=== PATIENT | female | born 1955 | race Caucasian/White ===

== ENCOUNTER 2016-12-09 10:56 | Emergency (ER) | payer MEDICARE, OTHER ==
[~2016-12-09] VITALS: Ht 165.1 cm; Wt 59.0 kg
[~2016-12-09 10:56] MED LIST: ACYCLOVIR200 MG PO; AMOXICILLIN875 MG PO; AUGMENTIN 875-1 EACH PO; CIPRO500 MG PO; CLARITIN10 MG PO; DOXYCYCLINE HYC50 MG PO; DUONEB INH; FLOVENT HFA12 G1 INH; GABAPENTIN300 MG PO; HYDROCHLOROTHIA25 MG PO; HYDROCODON-ACE1 EA11 PO; HYDROCODON-ACE1 EA12 PO; HYDROCODON-ACE1 EAC8 PO; HYDROXYZINE PAM25 MG PO; LIDOCAINE30 G TOP; LOPERAMIDE2 MG PO; LUNESTA3 MG PO; MORPHINE SULFAT30 M5 PO; NORCO 5-325 TA1 EACH PO; NYSTATIN100000 UN1 PO; OMEPRAZOLE20 MG PO; OXYCODONE HCL15 MG PO; PRAVACHOL20 MG PO; PREDNISONE20 MG PO; PRILOSEC20 MG PO; PRINIVIL20 MG PO; PROAIR HFA8.5 GM INH; PROCARDIA XL30 MG PO; PROZAC20 MG PO; PSEUDOEPHEDRINE60 MG PO; PSEUDOGEST PO; ROBAXIN500 MG PO; SOMA350 MG PO; TRAMADOL HCL50 MG PO; TYLENOL EXTRA500 MG PO; ULTRAM50 MG PO; VENTOLIN HFA18 GM INH; XANAX0.5 MG PO; XANAX1 MG PO; ZANAFLEX4 MG PO; ZOLOFT100 MG PO
[2016-12-09] MEDS ORDERED: PROZAC40 MG PO (11:13)
[2016-12-09] MEDS ORDERED: METHYLPREDNISOLO4 M1 PO (11:23)
[2016-12-09] MEDS ORDERED: AUGMENTIN 875-1 EACH PO (11:24)
== END 2016-12-09 11:48 | disposition home or self-care (01) ==
LOC: ED 10:56
DX: J44.1 Chronic obstructive pulmonary disease with (acute) exacerbation (principal); F17.200 Nicotine dependence, unspecified, uncomplicated; Z90.710 Acquired absence of both cervix and uterus; Z88.8 Allergy status to other drugs, medicaments and biological substances; Z88.6 Allergy status to analgesic agent; Z79.52 Long term (current) use of systemic steroids; Z79.899 Other long term (current) drug therapy
CPT/HCPCS: 94640; 99283

== ENCOUNTER 2016-12-22 15:22 | Emergency (ER) | payer MEDICARE, OTHER ==
[~2016-12-22] VITALS: Ht 165.1 cm; Wt 61.7 kg
[~2016-12-22 15:22] MED LIST changes: +METHYLPREDNISOLO4 M1 PO; +PROZAC40 MG PO
[2016-12-22] MEDS ORDERED: AUGMENTIN 875-1 EACH PO (16:37)
[2016-12-22] MEDS ORDERED: PREDNISONE20 MG PO (16:37)
== END 2016-12-22 16:41 | disposition home or self-care (01) ==
LOC: ED 15:22
DX: J02.9 Acute pharyngitis, unspecified (principal); F17.200 Nicotine dependence, unspecified, uncomplicated; Z90.710 Acquired absence of both cervix and uterus; Z90.89 Acquired absence of other organs; Z88.8 Allergy status to other drugs, medicaments and biological substances; Z88.6 Allergy status to analgesic agent; Z79.899 Other long term (current) drug therapy; Z79.52 Long term (current) use of systemic steroids
CPT/HCPCS: 99283

== ENCOUNTER 2017-02-15 10:43 | Emergency (ER) | payer MEDICARE, OTHER ==
[~2017-02-15] VITALS: Ht 165.1 cm; Wt 59.9 kg
[2017-02-15] MEDS ORDERED: LATUDA40 MG PO (10:55)
[2017-02-15] MEDS ORDERED: LEVAQUIN750 MG PO (12:16)
[2017-02-15] MEDS ORDERED: PREDNISONE20 MG PO (12:16)
--- NOTE | 2017-02-15 23:00 | EKG ---
[facility] [address] [facility] [place] [address] Signed Normal sinus rhythm Nonspecific ST abnormality Abnormal ECG When compared with ECG of 04-AUG-2016 12:15, T wave inversion no longer evident in Anterolateral leads QT has shortened Confirmed by JANET RODRIGUEZ MD ([id number]) on 02/15/2017 11:00:06 PM Electronically Signed By: JANET RODRIGUEZ MD 02/15/170 PATIENT NAME: ONEAL LLAMAS Electrocardiogram DATE OF : 51 PHYSICIAN: JANET RODRIGUEZ MD REPORT #: [id number] REPORT IS CONFIDENTIAL AND NOT TO BE RELEASED WITHOUT AUTHORIZATION
== END 2017-02-15 12:55 | disposition home or self-care (01) ==
LOC: ED 10:43
DX: J44.1 Chronic obstructive pulmonary disease with (acute) exacerbation (principal); F17.200 Nicotine dependence, unspecified, uncomplicated; Z88.8 Allergy status to other drugs, medicaments and biological substances; Z88.6 Allergy status to analgesic agent; Z79.899 Other long term (current) drug therapy
CPT/HCPCS: 71010; 80053; 83735; 84484; 85025; 93005; 93010; 94640; 96365; 96375; 99284; J1956; J2930

== ENCOUNTER 2017-03-04 19:59 | Emergency (ER) | payer MEDICARE, OTHER ==
[~2017-03-04] VITALS: Ht 165.1 cm; Wt 59.4 kg
--- OUTSIDE RECORDS SUMMARY | ~2017-03-04 | XMS | Clinical Summary ---
Demographics + + + | Address | [address] | | | [place] [address] | + + + | Home Phone [...] | Unavailable | + + + Support +------+ +---------+ + + + | Name | Relationship | Address | Phone | +------+ +---------+ + + + ECON | [address] | | [place] | [place] [address] | +------+ +---------+ + + + Care Team Providers + +------+ + | Care Province Archivist Name | Role | Phone | + +------+ + PP | Unavailable | + +------+ + Source Comments MARY is fully live on both [facility] and [facility] InPatient.[facility] Allergies Not on File Current Medications Not on file Active Problems Not [...] on file | | + + + Plan of Treatment + + + + + | Health Maintenance | Due Date | Last Done | Comments | + + + + + | INFLUENZA VACCINE | | | | | (FLU SHOT) | 7 | | | + + + + + Results Not on filefrom Last 3 Months"
--- OUTSIDE RECORDS SUMMARY | ~2017-03-04 | XMS | Clinical Summary ---
Demographics + + + | Address | [address] | | | [place] [address] | + + + | Home Phone [...] [address] | | [place] | [place] [address] | +------+ +---------+ + + + Care Team Providers + +------+ + | Care Network Systems Consultant Name | Role | Phone | + +------+ + PP | Unavailable | + +------+ + Source Comments MARY is fully live on both [facility] and [facility] InPatient.[facility] Allergies Not on File Current Medications Not [...]
[~2017-03-04 19:59] MED LIST changes: +LATUDA40 MG PO; +LEVAQUIN750 MG PO
== END 2017-03-04 21:57 | disposition left against medical advice (07) ==
LOC: ED 19:59
DX: Z53.21 Procedure and treatment not carried out due to patient leaving prior to being seen by health care provider (principal)

== ENCOUNTER 2017-05-11 06:32 | Emergency (ER) | payer MEDICARE, OTHER ==
[~2017-05-11] VITALS: Ht 165.1 cm; Wt 59.0 kg
[2017-05-11] MEDS ORDERED: PERCOCET 5-3251 EACH PO (07:18)
== END 2017-05-11 07:35 | disposition home or self-care (01) ==
LOC: ED 06:32
DX: S92.354A Nondisplaced fracture of fifth metatarsal bone, right foot, initial encounter for closed fracture (principal); J44.9 Chronic obstructive pulmonary disease, unspecified; F17.200 Nicotine dependence, unspecified, uncomplicated; Z88.8 Allergy status to other drugs, medicaments and biological substances; Z88.6 Allergy status to analgesic agent; Z79.899 Other long term (current) drug therapy; W18.11XA Fall from or off toilet without subsequent striking against object, initial encounter; Y92.008 Other place in unspecified non-institutional (private) residence as the place of occurrence of the external cause
CPT/HCPCS: 73630; 99283

== ENCOUNTER 2017-11-11 06:31 | Emergency (ER) | payer OTHER, MEDICARE ==
[~2017-11-11] VITALS: Ht 165.1 cm; Wt 59.0 kg
--- OUTSIDE RECORDS SUMMARY | ~2017-11-11 | XMS | Clinical Summary ---
Demographics + + + | Address | [address] | | | [place] [address] | + + + | Home Phone [...] + | Author | [facility] | | | and [place] | + + + | Organization | [facility] | | | and [place] [...] Team Providers + +------+ + | Care Demolitionist Name | Role | Phone | + +------+ + | Timothy Elmore | PP | | + +------+ + Allergies + [...] | + + + + + + Current Medications + + +--------+---------+------+------+-------+ | Prescription | Sig. | Disp. | Refills | Star | End | Statu | | | | | | t | Date | s | | | | | | Date | | | + + +--------+---------+------+------+-------+ | omeprazole | Take 20 mg by mouth | | | 05/ | | Activ | | (PRILOSEC) 20 mg | every morning | | | 08/07 | | e | | capsule | (before breakfast). | | | 17 | | | + + +--------+---------+------+------+-------+ | gabapentin | Take 1,200 mg by | | | 06/0 | | Activ | | (NEURONTIN) 600 MG | mouth 3 times daily. | | | 20 | | e | | tablet | | | | 17 | | | + + +--------+---------+------+------+-------+ | fluticasone | 1 spray by Nasal | | | 05/2 | | Activ | | (FLONASE) 50 | route Daily. | | | 8/20 | | e | | mcg/nasal spray | | | | 17 | | | + + +--------+---------+------+------+-------+ | loperamide | Take 4 mg by mouth 4 | | | 05/2 | | Activ | | (IMODIUM) 2 mg | times daily as | | | 3/20 | | e | | capsule | needed for Diarrhea. | | | 17 | | | + + +--------+---------+------+------+-------+ | FLOVENT HFA 220 | Inhale 1 puff into | | | 05/0 | | Activ | | MCG/ACT inhaler | the lungs 2 times | | | 5/20 | | e | | | daily. | | | 17 | | | + + +--------+---------+------+------+-------+ | acyclovir | Take 400 mg by mouth | | | 06/0 | | Activ | | (ZOVIRAX) 800 mg | 2 times daily. | | | 2/20 | | e | | tablet | | | | 17 | | | + + +--------+---------+------+------+-------+ | hydrOXYzine | Take 25 mg by mouth | | | 05/2 | | Activ | | pamoate (VISTARIL) | 4 times daily. | | | 5/20 | | e | | 25 mg capsule | | | | 17 | | | + + +--------+---------+------+------+-------+ | FLUoxetine | Take 40 mg by mouth | | | 05/0 | | Activ | | (PROZAC) 40 MG | 2 times daily. | | | 3/20 | | e | | capsule | | | | 17 | | | + + +--------+---------+------+------+-------+ | acetaminophen | Take 2 tablets by | 120 | | 06/2 | | Activ | | (TYLENOL) 325 mg | mouth every 6 hours | tablet | | 0/20 | | e | | tablet | as needed for Pain. 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 | + + + | [...] on file | | + + + Last Filed Vital Signs + + + + | Vital Sign | Reading | Time Taken | + + + + | Blood Pressure | 136/83 | 08/07/2016710 PDT | + + + [...] | 59.3 kg (130 lb 11.7 | 08/06/20161899 PDT | | | oz) | | [...] | + + + + + | Hepatitis C | | | | | Screening | 4 | | | + + + + + | Vaccine: | | | | | Dtap/Tdap/Td (1 - | 3 | | | | Tdap) | | | | + + + + + | Vaccine: | | | | | Pneumococcal 19-64 | 3 | | | | (PPSV23 only) Medium | | | | | Risk (1 of 1 - | | | | | PPSV23) | | | | + + + + + | Cervical Cancer | | | | | Screening (Pap) | 4 | | | + + + + + | BREAST CANCER | | | | | SCREENING (MAMM Q2 | 4 | | | | YEARS 50-74) | | | | + + + + + | Colorectal Cancer | | | | | Screening | 4 | | | | (Colonoscopy) | | | | + + + + + | Vaccine: Zoster (1 | | | | | of 2) | 4 | | | + + + + + | Lung Cancer | | | | | Screening | 9 | | | + + + + + | Vaccine: Influenza | | | | | (#1) | 8 | | | + + + + + Results Not on filefrom Last 3 Months Insurance + +--------+ +--------+ +---------+ | Payer | Benefi | Subscriber | Type | Phone | Address | | | t Plan | ID | | | | | | / | | | | | | | Group | | | | | + +--------+ +--------+ +---------+ | MEDICARE | MEDICA | [id number] | Medica | [phone] | | | RE | | re | [phone] | | | | PART A | | | | | | | AND B | | | | | + +--------+ +--------+ +---------+ | [place] | MEDICA | [id number] | Medica | [phone] | | | ID | | id | [phone] | | | | [place] | | | | | + +--------+ +--------+ +---------+ + +--------+ +--------+ + + | Guarantor Name | Accoun | Relation to | Date | Phone | Billing Address | | | t Type | Patient | of | | | | | | | | | | + +--------+ +--------+ + + | LITZY EVANS | Person | Self [birth year] | Home: | [address] | | | al/Fam | | [phone] | [phone] | [place] [address] | | | anastasiya | | | [phone] | | + +--------+ +--------+ + +
--- OUTSIDE RECORDS SUMMARY | ~2017-11-11 | XMS | Clinical Summary ---
Demographics + + + | Address | [address] | | | [place] [address] | + + + | Home Phone [...] | + + + + + | DEREK QUIROGA | ECON | [address] | | | | | [place], | | | | | [place] [address] | | + + + + + Care Team Providers + +------+ + | Care Corporate Law Assistant Name | Role | Phone | + +------+ + PP | Unavailable | + +------+ + Source Comments MARY is fully live on both [facility] and [facility] InPatient.[facility] Allergies Not on File Current Medications Not [...] | | | | (FLU SHOT) | 8 | | | + + + + + Results Not on filefrom Last 3 Months"
[~2017-11-11 06:31] MED LIST changes: +PERCOCET 5-3251 EACH PO
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
[2017-11-11] MEDS ORDERED: DEPAKENE250 MG (06:47)
== END 2017-11-11 07:08 | disposition home or self-care (01) ==
LOC: ED 06:31
DX: M54.6 Pain in thoracic spine (principal); G89.29 Other chronic pain; Z87.891 Personal history of nicotine dependence; Z88.8 Allergy status to other drugs, medicaments and biological substances; Z88.6 Allergy status to analgesic agent; Z79.899 Other long term (current) drug therapy
CPT/HCPCS: 99283

== ENCOUNTER 2018-03-22 02:02 | Observation (INO) | payer MEDICARE, OTHER ==
[~2018-03-22] VITALS: Ht 165.1 cm; Wt 59.2 kg
[~2018-03-22 02:02] MED LIST changes: +DEPAKENE250 MG; +ZOFRAN ODT4 MG PO; +ZYPREXA10 MG PO
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
[2018-03-22] MEDS ORDERED: PERCOCET 10-321 EACH PO (07:16)
[2018-03-22] MEDS ORDERED: WELLBUTRIN XL300 MG PO (07:18)
[2018-03-22] MEDS ORDERED: ZOLOFT100 MG PO (07:18)
--- NOTE | 2018-03-22 08:08 | NUR ---
in room with ptSylvia
--- NOTE | 2018-03-22 08:39 | NUR ---
RT CALLED FOR BREATHING TREATMENT.
--- NOTE | 2018-03-22 08:46 | NUR ---
PT UP TO BATHROOM. STANDBY ASSIST. BACK TO BED. PT ASKING FOR BREAKFAST THIS MORNING. DISCUSSED STAYING ON CLEAR LIQUIDS FOR NOW DUE TO THROAT SWELLING. PT AGREEABLE.
--- NOTE | 2018-03-22 09:33 | NUR ---
PT STATED, "IM FEELING RESTLESS IN BED." PT UP TO CHAIR. MORNING MEDICATION GIVEN. PT REQUESTING PAIN MEDICATION AT THIS TIME FOR LOWER BACK PAIN. GAVE PERCOCET 10/325 PO 1 TAB FOR PAIN 06/27. FRESH ICE TEA ALSO GIVEN AT THIS TIME.
--- NOTE | 2018-03-22 12:40 | NUR ---
PT UP AMBULATING IN HALLWAY. TOLERATING ACTIVITY WELL.
--- NOTE | 2018-03-22 12:55 | NUR ---
PT BACK IN ROOM. WARM BLANKET GIVEN. PT ASKING ABOUT DISCHARGE. DISCUSSED PLAN OF CARE WITH PT. PT VERBALIZED UNDERSTANDING.
--- NOTE | 2018-03-22 14:11 | NUR ---
pt up to bathroom and back to bed. pt asking about plan of care and possible discharge home. discussed with pt the need for continued monitoring. pt verbalized understanding. call light within reach.
== END 2018-03-22 16:25 | disposition home or self-care (01) ==
LOC: ED 02:02 → CCU 02:03 → ED 02:03 → CCU 02:03
PROVIDERS: ADMIT Student in an Organized Health Care Education/Training Program
DX: T78.3XXA Angioneurotic edema, initial encounter (principal); M79.7 Fibromyalgia; M06.9 Rheumatoid arthritis, unspecified; J43.9 Emphysema, unspecified; F17.210 Nicotine dependence, cigarettes, uncomplicated; I10 Essential (primary) hypertension; F39 Unspecified mood [affective] disorder; G62.9 Polyneuropathy, unspecified; Z88.8 Allergy status to other drugs, medicaments and biological substances; Z79.891 Long term (current) use of opiate analgesic; Z79.51 Long term (current) use of inhaled steroids; Z79.899 Other long term (current) drug therapy
CPT/HCPCS: 94640; 94667; 96372; 96374; 96375; 96376; 99284-25; 99406; G0378; J1200; J2930; J7030

== ENCOUNTER 2018-04-21 16:33 | Emergency (ER) | payer MEDICARE, OTHER ==
[~2018-04-21] VITALS: Ht 165.1 cm; Wt 58.1 kg
[~2018-04-21 16:33] MED LIST changes: +PERCOCET 10-321 EACH PO; +WELLBUTRIN XL300 MG PO
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
[2018-04-21] MEDS ORDERED: HYDROCODON-ACE1 EAC8 PO (17:45)
[2018-04-21] MEDS ORDERED: DOXYCYCLINE HY100 MG PO (18:37)
[2018-04-21] MEDS ORDERED: DELTASONE20 MG PO (18:37)
[2018-04-21] MEDS ORDERED: ALBUTEROL2.5 MG/3 M INH (18:37)
[2018-04-21] MEDS ORDERED: TAMIFLU75 MG PO (18:37)
== END 2018-04-21 19:10 | disposition home or self-care (01) ==
LOC: ED 16:33
DX: J44.0 Chronic obstructive pulmonary disease with (acute) lower respiratory infection (principal); J20.9 Acute bronchitis, unspecified; J44.1 Chronic obstructive pulmonary disease with (acute) exacerbation; F17.200 Nicotine dependence, unspecified, uncomplicated; Z88.8 Allergy status to other drugs, medicaments and biological substances; Z88.6 Allergy status to analgesic agent; Z79.899 Other long term (current) drug therapy
CPT/HCPCS: 71045; 87502; 94640; 99283-25; 99406; J7512

== ENCOUNTER 2018-08-03 13:06 | Emergency (ER) | payer MEDICARE, OTHER ==
[~2018-08-03] VITALS: Ht 165.1 cm; Wt 58.1 kg
[~2018-08-03 13:06] MED LIST changes: +ALBUTEROL2.5 MG/3 M INH; +DELTASONE20 MG PO; +DOXYCYCLINE HY100 MG PO; +TAMIFLU75 MG PO
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
[2018-08-03] MEDS ORDERED: IPRAT-ALBUT 0.5-3 ML INH (13:34)
[2018-08-03] MEDS ORDERED: PSEUDOEPHEDRIN120 MG PO (13:37)
== END 2018-08-03 13:41 | disposition home or self-care (01) ==
LOC: ED 13:06
DX: R21 Rash and other nonspecific skin eruption (principal)

== ENCOUNTER 2018-12-23 14:06 | Inpatient (IN) | payer MEDICARE, OTHER ==
[~2018-12-23] VITALS: Ht 165.1 cm; Wt 58.1 kg
--- OUTSIDE RECORDS SUMMARY | ~2018-12-23 | XMS | Encounter Summary ---
Demographics + + + | Address | [address] | | | [place] [address] | + + + | Home Phone | | + + + | Preferred Language | Unknown | + + + | Marital Status | Single | + + + | Orthodoxy Affiliation | Unknown | + + + | Race | White | + + + | Ethnic Group | Not or | + + + Author + + + | Author | [facility] | + + + | Organization | [facility] | + + + | Address | Unknown | + + + | Phone | Unavailable | + + + Support + + + + + | Name | Relationship | Address | Phone | + + + + + | Zaida Putnam | ECON | [address] | | | | | [place], | | | | | [place] [address] | | + + + + + Care Team Providers + +------+ + | Care Health And Physical Education Teacher Name | Role | Phone | + +------+ + PCP | Unavailable | + +------+ + Encounter Details +--------+ + + + + | Date | Type | Department | Care Team | Description | +--------+ + + + + | 10/09/ | Office | General Internal | Note, Outpatient | Progress Note | | 1994 | Visit-Trans | Medicine [address] | Clinic | | | | [place] | [address] | | | | | | Mailcode: [id number] | | | | | | Outpatient Clinic | | | | | | [address] | | | | | | [place], [place] | | | | | | [address] | | | | | | [phone] | | | +--------+ + + + [...] + + documented as of this encounter Progress Notes Interface, Duplicate Maker In - 06/01/2006 3:00 AM PDT CLINIC DATE: 10/09/94 PAIN MANAGEMENT CLINIC - PROGRESS NOTE INTERVAL HISTORY: Ms. Evans presents to the Pain Management Clinic today for continued evaluation and treatment of her chronic lower back pain. She has been successfully weaned off opioids and is currently weaning herself off a cocktail that contains only Clonidine and Vistaril. Currently she is taking one teaspoonful of this cocktail b.i.d. which works out to Vistaril 0.75 mg and Clonidine 7 mcg b.i.d. She notes her low back pain has remained in the 0-1/10 range, but she notes some mild right calf pain that seems to be bothering her recently. The patient continues to participate actively in her social programs including attending mandaeism and bible-study sessions. CURRENT MEDICATIONS: Current medications include the pain cocktail as described above. ALLERGIES: No known drug allergies. PHYSICAL EXAMINATION: Physical examination today shows a blood pressure of 118/68, a heart rate of 78, and a respiratory rate of 18. General: In general, the patient is a well -developed, well-nourished, mildly obese white female with full expressive facies in no apparent distress. ASSESSMENT AND PLAN: Chronic low back pain. 1. Chronic pain therapy. Ms. Evans has successfully weaned herself off her pain cocktail containing only Clonidine and Vistaril and she will stop taking this medication completely now. 2. Physical therapy. 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 3. Increasing social function. This seems to be quite stable and she now is able to understand the effect that anger has on her pain. Ms. Evans will no longer be able to be seen the Pain Management Clinic at [facility] because of a change in insurance coverage. She will be cared for at [facility]. She has requested that her Pain Management Clinic progress notes as well as her Orthopedic progress notes from [facility] be sent to that institution. Ms. Evans has done well after arriving receiving a relatively high dose of oral opioids, Vicodin approximately eight per day. She has been titrated off opioids, and her pain level has decreased from a score of 7-8/10 to currently 0-1/10. I believe that her prognosis is quite good in terms of her chronic pain. John Mulligan M.D. Engineering Technical Specialist, Anesthesiology Director, Pain Management Services PK:bony cc: CAROLINE YOON MD METALWORKING INSTRUCTOR [facility]THOP[facility] documented in this encounter Plan of Treatment Not on filedocumented as of this encounter Visit Diagnoses Not on filedocumented in this encounter"
--- OUTSIDE RECORDS SUMMARY | ~2018-12-23 | XMS | Encounter Summary ---
Demographics + + + | Address | [address] | | | [place] [address] | + + + | Home Phone | | + + + | Preferred Language | Unknown | + + + | Marital Status | Single | + + + | Shinto Affiliation | Unknown | + + + | Race | White | + + + | Ethnic Group | Not or | + + + Author + + + | Author | [facility] | + + + | Organization | [facility] | + + + | Address | Unknown | + + + | Phone | Unavailable | + + + Support + + + + + | Name | Relationship | Address | Phone | + + + + + | Zaida Putnam | ECON | [address] | | | | | [place], | | | | | [place] [address] | | + + + + + Care Team Providers + +------+ + | Care Study Director Name | Role | Phone | + +------+ + PCP | Unavailable | + +------+ + Encounter Details +--------+ + + + + | Date | Type | Department | Care Team | Description | +--------+ + + + + | 04/18/ | Office | [facility] | Note, [...] as of this encounter Progress Notes Interface, Horn Player In - 02/12/2006 3:04 AM PSTCLINIC DATE: 04/18/1998 INTERNAL MEDICINE CLINIC SUBJECTIVE: Ms. Evans presents today for follow up of a wart on the tip of the first finger on right. She has had at least 3 cryo treatments previously and reports that the wart has been responding. She has also been applying some Podophyllin at home. As for her chronic pain, she reports that it has completely resolved on MS-Contin 15 milligrams po t.i.d. She is very happy with the medication and reports no constipation or side effects thereof. She feels that her function has improved with the medication. PHYSICAL EXAMINATION: BP 110/70. Pulse 64. Weight 161. Affect is happy. Speech is more controlled and less tangential than usual. SKIN: Reveals a small eschar on the tip of the first finger on the right. There is evidence for a wart there. FEET: Reveals numerous calluses over the first metatarsal and heel bilaterally as well as one between the fourth and fifth toes bilaterally. ASSESSMENT AND PLAN: 1. Wart, status post treatment with liquid nitrogen x 1. Patient is to continue applying Podophyllin and paring the wart at home. 2. Callused feet, likely related to ill fitting foot wear. Recommended calluses q h.s. with plastic covers prior to going to bed. In addition, she is to pumice in the morning. Ms. Evans was educated regarding the importance of properly fitting footwear. 3. Chronic pain. Currently in remission on MS-Contin. Ms. Evans was provided with refills of MS-Contin for the next three months. She is to follow up with me then. The assessment and plan was reviewed with Dr. Wallace Szymanski. Hui Milton M.D. Wallace Szymanski M.D. TORI:matthew d ocumented in this encounter Plan of Treatment Not on filedocumented as of this encounter Visit Diagnoses Not on filedocumented in this encounter"
--- OUTSIDE RECORDS SUMMARY | ~2018-12-23 | XMS | Encounter Summary ---
Demographics + + + | Address | [address] | | | [place] [address] | + + + | Home Phone | | + + + | Preferred Language | Unknown | + + + | Marital Status | Single | + + + | Taoist Affiliation | Unknown | + + + | Race | White | + + + | Ethnic Group | Not or | + + + Author + + + | Author | [facility] | + + + | Organization | [facility] | + + + | Address | Unknown | + + + | Phone | Unavailable | + + + Support + + + + + | Name | Relationship | Address | Phone | + + + + + | Zaida Putnam | ECON | [address] | | | | | [place], | | | | | [place] [address] | | + + + + + Care Team Providers + +------+ + | Care Sanitizer Name | Role | Phone | + [...] as of this encounter Progress Notes Interface, Wet Room Supervisor In - 02/12/2006 3:04 AM PSTCLINIC DATE: [...]
--- OUTSIDE RECORDS SUMMARY | ~2018-12-23 | XMS | Clinical Summary ---
Demographics + + + | Address | [address] | | | [place] [address] | + + + | Home Phone | | + + + | Preferred Language | Unknown | + + + | Marital Status | Single | + + + | Samaritan Affiliation | Unknown | + + + | Race | White | + + + | Ethnic Group | Not or | + + + Author + + + | Organization | Unknown | + + + | Address | Unknown | + + + | Phone | Unavailable | + + + Support + + + + + | Name | Relationship | Address | Phone | + + + + + | Zaida Putnam | ECON | [address] | | | | | [place], | | | | | [place] [address] | | + + + + + Care Team Providers + +------+ + | Care Frame Table Operator Name | Role | Phone | + +------+ + PCP | Unavailable | + +------+ + Source Comments MARY is fully live on both [facility] and [facility] Allergies Not on File Medications Not on file Active Problems Not on file Social History + +-------+ +--------+------+ | Tobacco [...] recent travel history available. | + + Last Filed Vital Signs Not on file Plan of Treatment + + + + + | Health Maintenance | Due Date | Last Done | Comments | + + + + + | Pneumococcal | | | | | vaccination (1 of 2 | 9 | | | | - PCV13) | | | | + + + + + | Influenza (Flu) | | | | | vaccination (#1) | 9 | | | + + + + + Results Not on filefrom Last 3 Months"
--- OUTSIDE RECORDS SUMMARY | ~2018-12-23 | XMS | Encounter Summary ---
Demographics + + + | Address | [address] | | | [place] [address] | + + + | Home Phone | | + + + | Preferred Language | Unknown | + + + | Marital Status | Single | + + + | Zoroastrian Affiliation | Unknown | + + + | Race | White | + + + | Ethnic Group | Not or | + + + Author + + + | Author | [facility] | + + + | Organization | [facility] | + + + | Address | Unknown | + + + | Phone | Unavailable | + + + Support + + + + + | Name | Relationship | Address | Phone | + + + + + | Zaida Putnam | ECON | [address] | | | | | [place], | | | | | [place] [address] | | + + + + + Care Team Providers + +------+ + | Care Surfacing Technician Name | Role | Phone | + +------+ + PCP | Unavailable | + +------+ + Encounter Details +--------+ + + + + | Date | Type | Department | Care Team | Description | +--------+ + + + + | 08/14/ | Office | General Internal | Note, Outpatient | Progress Note | | 1994 | Visit-Trans | Medicine [address] | Clinic | | | | [place] | [address] | | | | | | Mailcode: [address]475 | | | | | | Outpatient Clinic | | | | | | [address] | | | | | | [place], [place] | | | | | | [address] | | | | | | [phone] | | | +--------+ + + + [...] as of this encounter Progress Notes Interface, Mechanical Service Representative In - 06/05/2006 1:00 AM PDT CLINIC [...] Ms. Evans remains quite active with her yazdanism organization oand is noticing that she has [...] outlets of her anger. John Mulligan M.D. Bottom Filler, Anesthesiology Director, Pain Management Services HUI/fernando documented in this encounter Plan of Treatment Not on filedocumented as of this encounter Visit Diagnoses Not on filedocumented in this encounter"
--- OUTSIDE RECORDS SUMMARY | ~2018-12-23 | XMS | Encounter Summary ---
Demographics + + + | Address | [address] | | | [place] [address] | + + + | Home Phone | | + + + | Preferred Language | Unknown | + + + | Marital Status | Single | + + + | Christianity Affiliation | Unknown | + + + | Race | White | + + + | Ethnic Group | Not or | + + + Author + + + | Author | [facility] | + + + | Organization | [facility] | + + + | Address | Unknown | + + + | Phone | Unavailable | + + + Support + + + + + | Name | Relationship | Address | Phone | + + + + + | Zaida Putnam | ECON | [address] | | | | | [place], | | | | | [place] [address] | | + + + + + Care Team Providers + +------+ + | Care Gasoline Locomotive Crane Operator Name | Role | Phone | + +------+ + PCP | Unavailable | + +------+ + Encounter Details +--------+ + + + + | Date | Type | Department | Care Team | Description | +--------+ + + + + | 06/20/ | Office | [facility] | Note, [...] as of this encounter Progress Notes Interface, Boarding House Manager In - 02/07/2006 1:09 AM PSTCLINIC DATE: 06/20/1998 INTERNAL MEDICINE CLINIC SUBJECTIVE: Ms. Evans comes to clinic today regarding her medication issues. I recently and abruptly withdrew a prescription for MS-Contin after finding out that she was obtaining that medication illicitly off the street and stealing medication from other family members. She presents today complaining of withdrawal symptoms including nausea, sweats, tearing and depressing. Her last dose of MS-Contin was on Thursday, June 18, 1998. She admits to taking more of the medication than we had agreed on originally; she has been taking MS-Contin 15-mg p.o. four to five times per day. 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 Moreover, she says this is an important component to her "salvation". PHYSICAL EXAMINATION: Her weight is 161 pounds, blood pressure 122/92 and pulse 100. This is an anxious and tearful white female who is in no apparent distress. The skin manifests some signs of erythroderma on the face and hands. The hands are slightly moist. The eyes are tearful. The pupils measure 2.5 mm and are reactive. Cardiovascular examination reveals regular rate and rhythm, S1 and S2 that are slightly tachycardic but no murmurs, rubs or gallops. The lungs are clear to auscultation and percussion. The abdomen is nondistended and nontender with normoactive bowel sounds. ASSESSMENT AND PLAN: 1. Drug-seeking behavior with evidence of medication misuse and mis-appropriation. From this point forward Ms. Evans is not to receive narcotics from myself or from any other provider at [facility]. She has violated our contract as set forth in a previous note. She understands this. Moreover, she understands that her chart will be flagged in the [facility] system so that she cannot receive narcotics. This situation brings into question whether or not her diagnosis of fibromyalgia is, indeed legitimate. According to the patient's mother, who accompanies her today, the patient has been feigning symptoms so that she can obtain narcotics; she has gone so far as to obtain a book on fibromyalgia so that she can represent the syndrome correctly. At this point Ms. Evans is in Stage 1 of withdrawal without any evidence of hemodynamic instability. I suspect her withdrawal will last anywhere from seven to fourteen days. I have agreed to provide her with a tapering dose of clonidine (starting at 0.2-mg (sic) p.o. five times per day for five days and then tapering down to 2.1-mg (sic) p.o. five times per day for three days, then 0.1-mg p.o. t.i.d. for three days and then 0.1-mg p.o. b.i.d. for three days) and Phenergan 25-mg one to two tablets p.o. q.i.d. for nausea. At this point in the visit I had Dr. Anabelle Garcia speak to Ms. Evans regarding her options for recovery. Ms. Evans is to return to clinic in three weeks for follow-up. Hui Milton M.D. Wallace Szymanski M.D. Anabelle Garcia M.D. TORI/fernando documented in this encounter Plan of Treatment Not on filedocumented as of this encounter Visit Diagnoses Not on filedocumented in this encounter
--- OUTSIDE RECORDS SUMMARY | ~2018-12-23 | XMS | Encounter Summary ---
Demographics + + + | Address | [address] | | | [place] [address] | + + + | Home Phone | | + + + | Preferred Language | Unknown | + + + | Marital Status | Single | + + + | Confucianist Affiliation | Unknown | + + + | Race | White | + + + | Ethnic Group | Not or | + + + Author + + + | Author | [facility] | + + + | Organization | [facility] | + + + | Address | Unknown | + + + | Phone | Unavailable | + + + Support + + + + + | Name | Relationship | Address | Phone | + + + + + | Zaida Putnam | ECON | [address] | | | | | [place], | | | | | [place] [address] | | + + + + + Care Team Providers + +------+ + | Care Assembler Arranger Name | Role | Phone | + +------+ + PCP | Unavailable | + +------+ + Encounter Details +--------+ + + + + | Date | Type | Department | Care Team | Description | +--------+ + + + + | 09/04/ | Office | General Internal | Note, Outpatient | Progress Note | | 1994 | Visit-Trans | Medicine [address] | Clinic | | | | [place] | [address] | | | | | | Mailcode: [address] | | | | | | Outpatient Clinic | | | | | | [address] | | | | | | [place], [place] | | | | | | [address] | | | | | | [phone] | | | +--------+ + + + [...] as of this encounter Progress Notes Interface, Manager Report In - 06/03/2006 2:00 AM PDT CLINIC [...] Ms. Evans has not been attending her confucianism on Sundays but continues to go to local confucianism meetings. She denies sedation, and nausea and [...] increased social function and participation in her taoism group. John Mulligan M.D. Internet Webmaster, Anesthesiology Director, Pain Management Services PK:bony cc: CAROLINE YOON MD [facility] documented in this encounter Plan of Treatment Not on filedocumented as of this encounter Visit Diagnoses Not on filedocumented in this encounter
--- OUTSIDE RECORDS SUMMARY | ~2018-12-23 | XMS | Encounter Summary ---
Demographics + + + | Address | [address] | | | [place] [address] | + + + | Home Phone [...] Author | [facility] | + + + | Organization | [facility] | + + + | Address | Unknown | + + + | Phone | Unavailable | + + + Support + + + + + | Name | Relationship | Address | Phone | + + + + + | Zaida Putnam | ECON | [address] | | | | | [place], | | | | | [place] [address] | | + + + + + Care Team Providers + +------+ + | Care Top Collar Maker Name | Role | Phone | + [...] [id number] | | | | | | [place], [place] | | | | | | [address] | | | | | | [phone] | | | +--------+ + + + [...] OF | [address] | [place] [address] | | | PATHOLOGY | YOKASTA BUTCHER | | | + + + + + documented in this encounter Visit Diagnoses Not on filedocumented in this encounter"
--- OUTSIDE RECORDS SUMMARY | ~2018-12-23 | XMS | Encounter Summary ---
Demographics + + + | Address | [address] | | | [place] [address] | + + + | Home Phone [...] [place], | | | | | [place] [address] | | + + + + + Care Team Providers + +------+ + | Care Patent Drafter Name | Role | Phone | + +------+ + PCP | Unavailable | + +------+ + Encounter Details +--------+ + + + + | Date | Type | Department | Care Team | Description | +--------+ + + + + | 07/24/ | Office | General Internal | Note, Outpatient | Progress Note | | 1994 | Visit-Trans | Medicine [address] | Clinic | | | | [place] | [address] | | | | | | Mailcode: [id number] | | | | | | Outpatient Clinic | | | | | | [address] | | | | | | [place], [place] | | | | | | [address] | | | | | | [phone] | | | +--------+ + + + [...] as of this encounter Progress Notes Interface, College President In - 06/05/2006 1:00 AM PDT CLINIC DATE: 07/24/94 PAIN MANAGEMENT CLINIC - PROGRESS NOTE INTERVAL HISTORY: Mrs. Evans has been doing well with her chronic lower back pain. She presents with a completed elegant pain diary that includes details of her recent change of address. Her pain scores have been on the order of 1 to 2/10 with occasional flares to as high as 4/10 and her functioning has remained quite high including continued attendance of pentecostalism and working on nzethv-ojg-iacvh activities. She denies changes in bladder or bowel function or sedation from the medication that she is taking. She wishes to continue the pain cocktail as it is currently administered. PHYSICAL EXAMINATION: Physical examination is deferred. ASSESSMENT AND PLAN: 1. Chronic low back pain. 1.1 Chronic pain therapy. Will continue to decrease opiate therapy. Her next prescription contains no methadone but contains clonidine 50 mcg twice a day. I have also recommended that she reduce the volume of pain cocktail that she takes on a daily basis to two teaspoonsful twice a day, and she will attempt to do this over the near term. 1.2 Physical Therapy. I will continue to increase her physical therapy. 1.3 Increased social function. This seems quite stable. 2. Bladder dysfunction, resolved. John Mulligan M.D. Concrete Pointer, Anesthesiology Director, Pain Management Services PK:bony documented in this encounter Plan of Treatment Not on filedocumented as of this encounter Visit Diagnoses Not on filedocumented in this encounter"
--- OUTSIDE RECORDS SUMMARY | ~2018-12-23 | XMS | Encounter Summary ---
Demographics + + + | Address | [address] | | | [place] [address] | + + + | Home Phone | | + + + | Preferred Language | Unknown | + + + | Marital Status | Single | + + + | Episcopalian Affiliation | Unknown | + + + [...] [place], | | | | | [place] [address] | | + + + + + Care Team Providers + +------+ + | Care Newscast Producer Name | Role | Phone | [...] [id number] | | | | | | [place], [place] | | | | | | [address] | | | | | | [phone] | | | +--------+ + + + [...] OF | [address] | [place] [address] | | | PATHOLOGY | YOKASTA BUTCHER | | | + + + + + documented in this encounter Visit Diagnoses Not on filedocumented in this encounter"
--- OUTSIDE RECORDS SUMMARY | ~2018-12-23 | XMS | Encounter Summary ---
Demographics + + + | Address | [address] | | | [place] [address] | + + + | Home Phone | | + + + | Preferred Language | Unknown | + + + | Marital Status | Single | + + + | Jew Affiliation | Unknown | + + + | Race | White | + + + | Ethnic Group | Not or | + + + Author + + + | Author | [facility] | + + + | Organization | [facility] | + + + | Address | Unknown | + + + | Phone | Unavailable | + + + Support + + + + + | Name | Relationship | Address | Phone | + + + + + | Zaida Putnam | ECON | [address] | | | | | [place], | | | | | [place] [address] | | + + + + + Care Team Providers + +------+ + | Care Script Editor Name | Role | Phone | + [...] [address] | | | | | | [place] | | | | | | [address] | | | +--------+ + + + [...] as of this encounter Progress Notes Interface, Proof Technician In - 06/14/2006 5:08 AM PDT [address] [address] [facility] January 08, 1994 DARYL ELLIS PH D HOME SUPPORT WORKER MEDICAL PSYCHOLOGY [address] [address] RE:Litzy Evans MR:[id number] Ellis: Thank [...] any further information. Sincerely, Faisal Grijalva M.D. Manager College, Neurology PIYUSH:sailaja January 09, 1994 documented in this encounter Plan of Treatment Not on filedocumented as of this encounter Visit Diagnoses Not on filedocumented in this encounter"
--- OUTSIDE RECORDS SUMMARY | ~2018-12-23 | XMS | Encounter Summary ---
Demographics + + + | Address | [address] | | | [place] [address] | + + + | Home Phone [...] [place], | | | | | [place] [address] | | + + + + + Care Team Providers + +------+ + | Care Transfer Iron Operator Name | Role | Phone | + +------+ + PCP | Unavailable | + +------+ + Encounter Details +--------+ + + + + | Date | Type | Department | Care Team | Description | +--------+ + + + + | 08/14/ | Office | General Internal | Note, Outpatient | Progress Note | | 1994 | Visit-Trans | Medicine [address] | Clinic | | | | [place] | [address] | | | | | | Mailcode: L475 | | | | | | Outpatient Clinic | | | | | | [address] | | | | | | [place], [place] | | | | | | [address] | | | | | | [phone] | | | +--------+ + + + [...] as of this encounter Progress Notes Interface, Textile Supervisor In - 06/05/2006 1:00 AM PDT CLINIC [...] Ms. 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 John Mulligan M.D. Instructional Services Specialist, Anesthesiology Director, Pain Management Services HUI/fernando documented in this encounter Plan of Treatment Not on filedocumented as of this encounter Visit Diagnoses Not on filedocumented in this encounter"
--- OUTSIDE RECORDS SUMMARY | ~2018-12-23 | XMS | Encounter Summary ---
Demographics + + + | Address | [address] | | | [place] [address] | + + + | Home Phone | | + + + | Preferred Language | Unknown | + + + | Marital Status | Single | + + + | Mosque Affiliation | Unknown | + + + | Race | White | + + + | Ethnic Group | Not or | + + + Author + + + | Author | [facility] | + + + | Organization | [facility] | + + + | Address | Unknown | + + + | Phone | Unavailable | + + + Support + + + + + | Name | Relationship | Address | Phone | + + + + + | Zaida Putnam | ECON | [address] | | | | | [place], | | | | | [place] [address] | | + + + + + Care Team Providers + +------+ + | Care Commercial Airplane Pilot Name | Role | Phone | + +------+ + PCP | Unavailable | + +------+ + Encounter Details +--------+ + + + + | Date | Type | Department | Care Team | Description | +--------+ + + + + | 12/25/ | Office | UNKNOWN DEPARTMENT | Note, Outpatient | Progress Note | | 1993 | Visit-Trans | [address] | Clinic | | | | [place] | [address] | | | | | | [place], [place] | | | | | | [address] | | | +--------+ + + + [...] as of this encounter Progress Notes Interface, Commercial Field Inspector In - 06/14/2006 5:08 AM PDT CLINIC [...] drink alcohol. 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 She is , currently living with a boyfriend/roommate in [place]. She is subsisting on Welfare, she has [...] management of somatization disorder. Faisal Grijalva M.D. Shape Hand, Neurology PIYUSH/ifrah cc: LEILANI ACOSTA MD [address] [place] [id number] documented in this encounter Plan of Treatment Not on filedocumented as of this encounter Visit Diagnoses Not on filedocumented in this encounter
--- OUTSIDE RECORDS SUMMARY | ~2018-12-23 | XMS | Encounter Summary ---
Demographics + + + | Address | [address] | | | [place] [address] | + + + | Home Phone [...] [place], | | | | | [place] [address] | | + + + + + Care Team Providers + +------+ + | Care Highway Landscape Architect Name | Role | Phone | + +------+ + PCP | Unavailable | + +------+ + Encounter Details +--------+ + + + + | Date | Type | Department | Care Team | Description | +--------+ + + + + | 10/09/ | Office | General Internal | Note, Outpatient | Progress Note | | 1994 | Visit-Trans | Medicine [address] | Clinic | | | | [place] | [address] | | | | | | Mailcode: [address]475 | | | | | | Outpatient Clinic | | | | | | [address] | | | | | | [place], [place] | | | | | | [address] | | | | | | [phone] | | | +--------+ + + + [...] as of this encounter Progress Notes Interface, Hot Mill Operator In - 06/01/2006 3:00 AM PDT CLINIC [...] actively in her social programs including attending anglican and bible-study sessions. CURRENT MEDICATIONS: Current medications [...] a very low level with her boyfriend's [employer] business. 3. Increasing social function. This seems to be quite stable and she now is able to understand the effect that anger has on her pain. Ms. Evans will no longer be able to be seen the Pain Management Clinic at [facility] because of a change in insurance coverage. She will be cared for at [facility]. She has requested that her Pain Management Clinic progress notes as well as her Orthopedic progress notes from [facility] be sent to that institution. Ms. Evans has done well after arriving receiving a relatively high dose of oral opioids, Vicodin approximately eight per day. She has been titrated off opioids, and her pain level has decreased from a score of 7-8/10 to currently 0-1/10. I believe that her prognosis is quite good in terms of her chronic pain. John Mulligan M.D. Rim Roller Operator, Anesthesiology Director, Pain Management Services PK:bony cc: CAROLINE YOON MD MANAGEMENT ASSOCIATE ORTHOPEDICS [facility] documented in this encounter Plan of Treatment Not on filedocumented as of this encounter Visit Diagnoses Not on filedocumented in this encounter"
--- OUTSIDE RECORDS SUMMARY | ~2018-12-23 | XMS | Encounter Summary ---
Demographics + + + | Address | [address] | | | [place] [address] | + + + | Home Phone | | + + + | Preferred Language | Unknown | + + + | Marital Status | Single | + + + | Lutheran Affiliation | Unknown | + + + | Race | White | + + + | Ethnic Group | Not or | + + + Author + + + | Author | [facility] | + + + | Organization | [facility] | + + + | Address | Unknown | + + + | Phone | Unavailable | + + + Support + + + + + | Name | Relationship | Address | Phone | + + + + + | Zaida Putnam | ECON | [address] | | | | | [place], | | | | | [place] [address] | | + + + + + Care Team Providers + +------+ + | Care Aoc Operations Intelligence Officer Name | Role | Phone | + [...] as of this encounter Progress Notes Interface, Deputy Clerk Of Court In - 02/07/2006 1:09 AM PSTCLINIC DATE: [...] or throat itching. She has been taking vzss-ttx-oymfjwu pseudoephedrine, but has not noted much relief. [...] Ms. Evans is planning to move to [place]. We will forward her records as soon as she finds a new provider. The patient's interview, physical examination, and treatment plan were reviewed with Dr. Wallace Szymanski. Hui Mitlon M.D.Resident, Internal Medicine Wallace Szymanski M.D. Danny Tdocumented in this encounter Plan of Treatment Not on filedocumented as of this encounter Visit Diagnoses Not on filedocumented in this encounter"
--- OUTSIDE RECORDS SUMMARY | ~2018-12-23 | XMS | Encounter Summary ---
Demographics + + + | Address | [address] | | | [place] [address] | + + + | Home Phone | | + + + | Preferred Language | Unknown | + + + | Marital Status | Single | + + + | Catholic Affiliation | Unknown | + + [...] [place], | | | | | [place] [address] | | + + + + + Care Team Providers + +------+ + | Care Computer Systems Technician Name | Role | Phone | + +------+ + PCP | Unavailable | + +------+ + Encounter Details +--------+ + + + + | Date | Type | Department | Care Team | Description | +--------+ + + + + | 12/08/ | Office | [facility] INTERNAL | Note, [...] as of this encounter Progress Notes Interface, Last Remodeler Repairer In - 02/23/2006 5:02 AM PSTCLINIC DATE: 12/08/1997 INTERNAL MEDICINE CLINIC SUBJECTIVE: A patient of Dr. Milton and Dr. Szymanski comes in today for follow up for a previously scheduled appointment that had been moved without her knowledge to 12/15/97. She has no new concerns today, but is still in process of establishing primary care for treatment of her chronic low back. Her pain is actually doing a bit better. She was frustrated with the mix up in the appointment schedule and still wanted to see a doctor today. She does request a new lumbar support binder as the one she has is over a year old. She feels that it is stretched out and not as effective as it used to be. Other than this, she has no new symptoms. OBJECTIVE: Examination is deferred. ASSESSMENT: Chronic low back pain. She needs follow up with her primary care physician. She is in the process of trial of various therapies for treatment of this. Further intervention by myself would likely just complicate the issue. PLAN: I did re-order a lumbar support binder from prosthetics today. This is certainly a low risk way to help her chronic pain. Patient was discussed with Dr. Bairon Cutler. He agrees with the plan. August Weber M.D. Resident, Internal Medicine Bairon Cutler M.D. Visiting Staff, Internal Medicine HAILY/lilia C: 01/10/1998 ds cc: Wallace Szymanski M.D. Architectural Coating Finisher, Internal Medicine Hui Milton M.D. Resident, Internal Medicine 07 5:02 AM PSTdocumented in this encounter Plan of Treatment Not on filedocumented as of this encounter Visit Diagnoses Not on filedocumented in this encounter"
--- OUTSIDE RECORDS SUMMARY | ~2018-12-23 | XMS | Encounter Summary ---
Demographics + + + | Address | [address] | | | [place] [address] | + + + | Home Phone [...] [place], | | | | | [place] [address] | | + + + + + Care Team Providers + +------+ + | Care Centerless Grinder Operator Name | Role | Phone | [...] [id number] | | | | | | [place], [place] | | | | | | [address] | | | | | | [phone] | | | +--------+ + + + [...] OF | [address] | [place] [address] | | | PATHOLOGY | YOKASTA BUTCHER | | | + + + + + documented in this encounter Visit Diagnoses Not on filedocumented in this encounter"
--- OUTSIDE RECORDS SUMMARY | ~2018-12-23 | XMS | Encounter Summary ---
Demographics + + + | Address | [address] | | | [place] [address] | + + + | Home Phone [...] Author + + + | Author | [facility] | + + + | Organization | [facility] | + + + | Address | Unknown | + + + | Phone | Unavailable | + + + Support + + + + + | Name | Relationship | Address | Phone | + + + + + | Zaida Putnam | ECON | [address] | | | | | [place], | | | | | [place] [address] | | + + + + + Care Team Providers + +------+ + | Care Mechanical Meter Tester Name | Role | Phone | + +------+ + PCP | Unavailable | + +------+ + Encounter Details +--------+ + + + + | Date | Type | Department | Care Team | Description | +--------+ + + + + | 04/11/ | Office | UNKNOWN DEPARTMENT | Note, Outpatient | Progress Note | | 1994 | Visit-Trans | [address] | Clinic | | | | [place] | [address] | | | | | | [place], [place] | | | | | | [address] | | | +--------+ + + + [...] as of this encounter Progress Notes Interface, Bulk Truck Driver In - 06/11/2006 5:10 AM PDT CLINIC DATE: 04/11/94 NEUROLOGY CLINIC: Litzy returns for follow-up of her chronic pain syndrome. Since our last visit, I have had the opportunity to review an lumbosacral (LS) spine magnetic resonance imaging (MRI) performed at an outside hospital and dated 05/06/93. This was performed at [facility]. It was a good quality [...] Follow-up in Pain Clinic. Faisal Grijalva M.D. Video System Repairer, Neurology FELIZ:manuel documented in this encounter Plan of Treatment Not on filedocumented as of this encounter Visit Diagnoses Not on filedocumented in this encounter
--- OUTSIDE RECORDS SUMMARY | ~2018-12-23 | XMS | Clinical Summary ---
Demographics + + + | Address | [address] | | | [place] [address] | + + + | Home Phone [...] [place], | | | | | [place] [address] | | + + + + + Care Team Providers + +------+ + | Care Forepart Laster Name | Role | Phone | + +------+ + PCP | Unavailable | + +------+ + Source Comments MARY is fully live on both [facility] and [facility] Allergies Not on File Medications Not [...]
--- OUTSIDE RECORDS SUMMARY | ~2018-12-23 | XMS | Encounter Summary ---
Demographics + + + | Address | [address] | | | [place] [address] | + + + | Home Phone [...] [place], | | | | | [place] [address] | | + + + + + Care Team Providers + +------+ + | Care Presidential Helicopter Crew Chief Name | Role | Phone | + +------+ + PCP | Unavailable | + +------+ + Encounter Details +--------+ + + + + | Date | Type | Department | Care Team | Description | +--------+ + + + + | 10/09/ | Office | General Internal | Note, Outpatient | Progress Note | | 1994 | Visit-Trans | Medicine [address] | Clinic | | | | [place] | [address] | | | | | | Mailcode: [id number] | | | | | | Outpatient Clinic | | | | | | [address] | | | | | | [place], [place] | | | | | | [address] | | | | | | [phone] | | | +--------+ + + + [...] as of this encounter Progress Notes Interface, Joint Filler In - 06/01/2006 3:00 AM PDT CLINIC [...] actively in her social programs including attending taoism and bible-study sessions. CURRENT MEDICATIONS: Current medications [...] a very low level with her boyfriend's [employer] business. 3. Increasing social function. This seems to be quite stable and she now is able to understand the effect that anger has on her pain. Ms. Evans will no longer be able to be seen the Pain Management Clinic at [facility] because of a change in insurance coverage. She will be cared for at [facility]. She has requested that her Pain Management Clinic progress notes as well as her Orthopedic progress notes from [facility] be sent to that institution. Ms. Evans has done well after arriving receiving a relatively high dose of oral opioids, Vicodin approximately eight per day. She has been titrated off opioids, and her pain level has decreased from a score of 7-8/10 to currently 0-1/10. I believe that her prognosis is quite good in terms of her chronic pain. John Mulligan M.D. Field Manager, Anesthesiology Director, Pain Management Services PK:bony cc: CAROLINE YOON MD EXECUTIVE VICE PRESIDENT AND CHIEF OPERATING OFFICER ORTHOPEDICS [facility] documented in this encounter Plan of Treatment Not on filedocumented as of this encounter Visit Diagnoses Not on filedocumented in this encounter"
--- OUTSIDE RECORDS SUMMARY | ~2018-12-23 | XMS | Encounter Summary ---
Demographics + + + | Address | [address] | | | [place] [address] | + + + | Home Phone [...] Author + + + | Author | [facility] | + + + | Organization | [facility] | + + + | Address | Unknown | + + + | Phone | Unavailable | + + + Support + + + + + | Name | Relationship | Address | Phone | + + + + + | Zaida Putnam | ECON | [address] | | | | | [place], | | | | | [place] [address] | | + + + + + Care Team Providers + +------+ + | Care Pricing Director Name | Role | Phone | + +------+ + PCP | Unavailable | + +------+ + Encounter Details +--------+ + + + + | Date | Type | Department | Care Team | Description | +--------+ + + + + | 09/20/ | Office | General Internal | Note, Outpatient | Progress Note | | 1994 | Visit-Trans | Medicine [address] | Clinic | | | | [place] | [address] | | | | | | Mailcode: [id number] | | | | | | Outpatient Clinic | | | | | | [address] | | | | | | [place], [place] | | | | | | [address] | | | | | | [phone] | | | +--------+ + + + [...] as of this encounter Progress Notes Interface, Academic Associate In - 06/01/2006 3:00 AM PDT CLINIC DATE: 09/20/94 PSYCHIATRY CLINIC: OBSESSIVE-COMPULSIVE DISORDER (OCD) PSYCHIATRIC CLINIC EVALUATION: IDENTIFYING INFORMATION: Ms. Evans is a 39-year-old white female who is self-referred to the OCD Clinic for evaluation of potential obsessive-compulsive disorder symptomatology. Sources of information include the patient who appears to be a reliable historian as well as the [facility] chart including a neuropsychological evaluation conducted [...] Four months later, she was hospitalized at [facility] for 10 days at the recommendation [...] 1994. 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 Since that time, she has been on Social Security disability. Her boyfriend works in an auto shop that they bought several years ago. She has tried to work in the [employer] shop but is unable to tolerate it [...] interview carrying the recent article from the [place] on OCD. She easily engages in the [...] Monroy M.D. Resident, Psychiatry Jamir Payan M.D. System Administration Advisor, Psychiatry and occurred after her last divorce. [...] 1994. 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 Since that time, she has been on Social Security disability. Her boyfriend works in an auto shop that they bought several years ago. She has tried to work in the [employer] shop but is unable to tolerate it [...] interview carrying the recent article from the [facility] on OCD. She easily engages in the [...] RECOMMENDATIONS: 1. The patient will take the [place] Obsessive-Compulsive computerized test today. She was also [...] Monroy M.D. Resident, Psychiatry Jamir Payan M.D. System Administration Advisor, Psychiatry Aaron:bony WOOD:bony C: 10/04/94 shubham documented in this encounter Plan of Treatment Not on filedocumented as of this encounter Visit Diagnoses Not on filedocumented in this encounter
--- OUTSIDE RECORDS SUMMARY | ~2018-12-23 | XMS | Encounter Summary ---
Demographics + + + | Address | [address] | | | [place] [address] | + + + | Home Phone [...] [place], | | | | | [place] [address] | | + + + + + Care Team Providers + +------+ + | Care Co Op Name | Role | Phone | + +------+ + PCP | Unavailable | + +------+ + Encounter Details +--------+ + + + + | Date | Type | Department | Care Team | Description | +--------+ + + + + | 09/28/ | Office | General Internal | Note, Outpatient | Progress Note | | 1994 | Visit-Trans | Medicine [address] | Clinic | | | | [place] | [address] | | | | | | Mailcode: L475 | | | | | | Outpatient Clinic | | | | | | [address] | | | | | | [place], [place] | | | | | | [address] | | | | | | [phone] | | | +--------+ + + + [...] as of this encounter Progress Notes Interface, Gleason Gear Generator In - 06/01/2006 3:00 AM PDT CLINIC [...] in the Pain Clinic. Faisal Grijalva M.D. Injection Molding Technician, Neurology JSantana/ben documented in this encounter Plan of Treatment Not on filedocumented as of this encounter Visit Diagnoses Not on filedocumented in this encounter"
--- OUTSIDE RECORDS SUMMARY | ~2018-12-23 | XMS | Encounter Summary ---
Demographics + + + | Address | [address] | | | [place] [address] | + + + | Home Phone [...] [place], | | | | | [place] [address] | | + + + + + Care Team Providers + +------+ + | Care Methodologist Name | Role | Phone | + [...]
--- OUTSIDE RECORDS SUMMARY | ~2018-12-23 | XMS | Encounter Summary ---
Demographics + + + | Address | [address] | | | [place] [address] | + + + | Home Phone [...] [place], | | | | | [place] [address] | | + + + + + Care Team Providers + +------+ + | Care Sprayer Machine Name | Role | Phone | + +------+ + PCP | Unavailable | + +------+ + Encounter Details +--------+ + + + + | Date | Type | Department | Care Team | Description | +--------+ + + + + | 09/26/ | Results | | Other, Faculty | | | 1993 | Only | | [phone] | | +--------+ + + + + [...]
--- OUTSIDE RECORDS SUMMARY | ~2018-12-23 | XMS | Encounter Summary ---
Demographics + + + | Address | [address] | | | [place] [address] | + + + | Home Phone [...] [place], | | | | | [place] [address] | | + + + + + Care Team Providers + +------+ + | Care Financial Risk Manager Name | Role | Phone | [...]
--- OUTSIDE RECORDS SUMMARY | ~2018-12-23 | XMS | Encounter Summary ---
Demographics + + + | Address | [address] | | | [place] [address] | + + + | Home Phone | | + + + | Preferred Language | Unknown | + + + | Marital Status | Single | + + + | Scientology Affiliation | Unknown | + + + [...] [place], | | | | | [place] [address] | | + + + + + Care Team Providers + +------+ + | Care Prototype Carpenter Name | Role | Phone | + [...] Rd | | | | | | [place] | | | | | | [address] | | | +--------+ + + + [...] as of this encounter Progress Notes Interface, Hand Cutter In - 06/14/2006 5:08 AM PDT [address] [address] [facility] December 25, 1993 LEILANI ACOSTA MD [address] [place] [id number] RE:Litzy Evans MR#:[id number] Acosta: Thank you for referring Litzy Evans to the [facility] Neu[facility] for evaluation. I found her [...] your kind referral. Sincerely, Faisal Grijalva M.D. Swimming Pool Maintenance Supervisor, Neurology JFQ/mrd December 26, 1993 documented in this encounter Plan of Treatment Not on filedocumented as of this encounter Visit Diagnoses Not on filedocumented in this encounter"
--- OUTSIDE RECORDS SUMMARY | ~2018-12-23 | XMS | Encounter Summary ---
Demographics + + + | Address | [address] | | | [place] [address] | + + + | Home Phone [...] Author + + + | Author | [facility] | + + + | Organization | [facility] | + + + | Address | Unknown | + + + | Phone | Unavailable | + + + Support + + + + + | Name | Relationship | Address | Phone | + + + + + | Zaida Putnam | ECON | [address] | | | | | [place], | | | | | [place] [address] | | + + + + + Care Team Providers + +------+ + | Care Supervisor Industrial Arts Education Name | Role | Phone | + [...] as of this encounter Progress Notes Interface, Correctional Captain In - 02/21/2006 3:06 AM PSTCLINIC DATE: [...] M.D. Resident, Internal Medicine Wallace Szymanski M.D. Dog Bather, Internal Medicine TORI/niles d ocumented in this encounter Plan of Treatment Not on filedocumented as of this encounter Visit Diagnoses Not on filedocumented in this encounter"
--- OUTSIDE RECORDS SUMMARY | ~2018-12-23 | XMS | Encounter Summary ---
Demographics + + + | Address | [address] | | | [place] [address] | + + + | Home Phone | | + + + | Preferred Language | Unknown | + + + | Marital Status | Single | + + + | Anglican Affiliation | Unknown | + + + | Race | White | + + + | Ethnic Group | Not or | + + + Author + + + | Author | [facility] | + + + | Organization | [facility] | + + + | Address | Unknown | + + + | Phone | Unavailable | + + + Support + + + + + | Name | Relationship | Address | Phone | + + + + + | Zaida Putnam | ECON | [address] | | | | | [place], | | | | | [place] [address] | | + + + + + Care Team Providers + +------+ + | Care Paleontological Helper Name | Role | Phone | + +------+ + PCP | Unavailable | + +------+ + Encounter Details +--------+ + + + + | Date | Type | Department | Care Team | Description | +--------+ + + + + | 09/04/ | Office | General Internal | Note, Outpatient | Progress Note | | 1994 | Visit-Trans | Medicine [address] | Clinic | | | | [place] | [address] | | | | | | Mailcode: L475 | | | | | | Outpatient Clinic | | | | | | [address] | | | | | | [place], [place] | | | | | | [address] | | | | | | [phone] | | | +--------+ + + + [...] as of this encounter Progress Notes Interface, Head Concierge In - 06/03/2006 2:00 AM PDT CLINIC [...] Ms. Evans has not been attending her baptist on Sundays but continues to go to local baptist meetings. She denies sedation, and nausea and [...] increased social function and participation in her nondenominational group. John Mulligan M.D. Medical Office Professional Instructor, Anesthesiology Director, Pain Management Services PK:bony cc: CAROLINE YOON MD BOILER COVERER HELPER ORTHOPEDICS [facility] documented in this encounter Plan of Treatment Not on filedocumented as of this encounter Visit Diagnoses Not on filedocumented in this encounter
--- OUTSIDE RECORDS SUMMARY | ~2018-12-23 | XMS | Encounter Summary ---
Demographics + + + | Address | [address] | | | [place] [address] | + + + | Home Phone [...] [place], | | | | | [place] [address] | | + + + + + Care Team Providers + +------+ + | Care Beauty Artist Name | Role | Phone | + +------+ + PCP | Unavailable | + +------+ + Encounter Details +--------+ + + + + | Date | Type | Department | Care Team | Description | +--------+ + + + + | 05/13/ | Results | | Other, Faculty | | | 1998 | Only | | [phone] | | +--------+ + + + + [...] + +--------+ + + + | X-RAY CHEST 2 VIEW | Urgent | 05/13/1998 | | Results for this | | | | 10:15 PM | | procedure are in the | | | | PST | | results section. | + +--------+ + + + documented in this encounter Results CHEST 2 VIEW (05/13/1998 10:15 PM PST) + + + + + + | Component | Value | Ref Range | Performed | Pathologist | | | | | At | Signature | + + + + + + | CHEST, 2 | Radiologist 1: CHRISTIANO, | | | | | VIEWS [place] | AMARI HODGES, | | | | | STEREO | M.D.-Radiologist 2: | | | | | | AMARI ALVARADO, | | | | | | M.D.CHEST TWO VIEWS: | | | | | | 05/13/98 at 2215 hours. | | | | | | Dictated 05/14/98 | | | | | | COMPARISON: There are no | | | | | | prior studies available | | | | | | for comparison. | | | | | | FINDINGS: The lungs are | | | | | | clear. The | | | | | | cardio-mediastinal | | | | | | contours andhilar | | | | | | structures are within | | | | | | normal limits. There | | | | | | is no evidence ofpleural | | | | | | effusion or | | | | | | pneumothorax. The | | | | | | regional skeleton is | | | | | | normal. IMPRESSION: | | | | | | Normal chest. END OF | | | | | | IMPRESSION: | | | | + + + + + + + + | Specimen | + + | | + + + + + | Narrative | Performed At | + + + | Ordered by ANGELA DURBIN | | + + + + +---------+ + + | Performing | Address | City/State/Zipcode | Phone Number | | Organization | | | | + +---------+ + + | [facility] DEPARTMENT OF | | | | | RADIOLOGY | | | | + +---------+ + + documented in this encounter Visit Diagnoses Not on filedocumented in this encounter"
--- OUTSIDE RECORDS SUMMARY | ~2018-12-23 | XMS | Encounter Summary ---
Demographics + + + | Address | [address] | | | [place] [address] | + + + | Home Phone | | + + + | Preferred Language | Unknown | + + + | Marital Status | Single | + + + | Faith Affiliation | Unknown | + + + [...] [place], | | | | | [place] [address] | | + + + + + Care Team Providers + +------+ + | Care Audio/Visual Manager Name | Role | Phone | + +------+ + PCP | Unavailable | + +------+ + Encounter Details +--------+ + + + + | Date | Type | Department | Care Team | Description | +--------+ + + + + | 09/20/ | Office | General Internal | Note, Outpatient | Progress Note | | 1994 | Visit-Trans | Medicine [address] | Clinic | | | | [place] | [address] | | | | | | Mailcode: L475 | | | | | | Outpatient Clinic | | | | | | [address] | | | | | | [place], [place] | | | | | | [address] | | | | | | [phone] | | | +--------+ + + + [...] as of this encounter Progress Notes Interface, Engineer Specialist In - 06/01/2006 3:00 AM PDT CLINIC DATE: 09/20/94 PSYCHIATRY CLINIC: OBSESSIVE-COMPULSIVE DISORDER (OCD) PSYCHIATRIC CLINIC EVALUATION: IDENTIFYING INFORMATION: Ms. Evans is a 39-year-old white female who is self-referred to the OCD Clinic for evaluation of potential obsessive-compulsive disorder symptomatology. Sources of information include the patient who appears to be a reliable historian as well as the [facility] chart including a neuropsychological evaluation conducted [...] months later, she was hospitalized at [facility] for 10 days at the [...] 1994. 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 Since that time, she has been on Social Security disability. Her boyfriend works in an auto shop that they bought several years ago. 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 Resident, Psychiatry Jamir Payan M.D. Welcome Wagon Host/Hostess, Psychiatry and occurred after her last divorce. [...] 1994. 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 Since that time, she has been on Social Security disability. Her boyfriend works in an auto shop that they bought several years ago. She has tried to work in the [employer]jo shop but is unable to tolerate it [...] interview carrying the recent article from the [facility] on OCD. She easily engages in [...] RECOMMENDATIONS: 1. The patient will take the [place] Obsessive-Compulsive computerized test today. She was also [...] Monroy M.D. Resident, Psychiatry Jamir Payan M.D. Welcome Wagon Host/Hostess, Psychiatry Aaron:bony WOOD:bony C: 10/04/94 shubham documented in this encounter Plan of Treatment Not on filedocumented as of this encounter Visit Diagnoses Not on filedocumented in this encounter
--- OUTSIDE RECORDS SUMMARY | ~2018-12-23 | XMS | Encounter Summary ---
Demographics + + + | Address | [address] | | | [place] [address] | + + + | Home Phone | | + + + | Preferred Language | Unknown | + + + | Marital Status | Single | + + + | Alevism Affiliation | Unknown | + + + [...] [address] | | | | | [place], | | | | | [place] [address] | | + + + + + Care Team Providers + +------+ + | Care Coating Machine Operator Helper Name | Role | Phone | + +------+ + PCP | Unavailable | + +------+ + Encounter Details +--------+ + + + + | Date | Type | Department | Care Team | Description | +--------+ + + + + | 12/31/ | Results | Registration [id number] | | | | 1993 | Only | [address] | | | | | | [address] Mailcode: [id number] | | | | | | [place], [place] | | | | | | [address] | | | | | | [phone] | | | +--------+ + + + [...] | + +--------+ + + + | CHEMISTRY TESTS 4 | Routin | 01/01/1994 | | Results for this | | | e | 10:37 AM | | procedure are in the | | | | PST | | results section. | + +--------+ + + + | CBC TESTS 2 | Routin | 01/01/1994 | | Results for this | | | e | 10:37 AM | | procedure are in the | | | | PST | | results section. | + +--------+ + + + | CHEMISTRY TESTS 2 | Routin | 01/01/1994 | | Results for this | | | e | 10:37 AM | | procedure are in the | | | | PST | | results section. | + +--------+ + + + | IMMUNOLOGY TESTS 1 | Routin | 01/01/1994 | | Results for this | | | e | 10:37 AM | | procedure are in the | | | | PST | | results section. | + +--------+ + + + | MISCELLANEOUS | Routin | 01/01/1994 | | Results for this | | CHEMISTRY TESTS | e | 10:37 AM | | procedure are in the | | | | PST | | results section. | + +--------+ + + + | URINALYSIS TESTS | Routin | 12/31/1993 | | Results for this | | | e | 4:35 AM | | procedure are in the | | | | PST | | results section. | + +--------+ + + + documented in this encounter Results CHEMISTRY TESTS 2 (01/01/1994 10:37 AM PST) + + + + + + | Component | Value | Ref Range | Performed | Pathologist | | | | | At | Signature | + + + + + + | CHOLESTEROL | 271. | mg/dL | | | | (LAB) | | | | | + + + + + + + + | Specimen | + + | | + + + + + + + | Performing | Address | City/State/Zipcode | Phone Number | | Organization | | | | + + + + + | [facility] | [address] | [place] [address] | | | PATHOLOGY | [address] | | | + + + + + CHEMISTRY TESTS 4 (01/01/1994 10:37 AM PST) + + + + + + | Component | Value | Ref Range | Performed | Pathologist | | | | | At | Signature | + + + + + + | SODIUM, | 138. | mmol/l | | | | PLASMA | | | | | | (LAB) | | | | | + + + + + + | POTASSIUM, | 4.7 | mmol/l | | | | PLASMA | | | | | | (LAB) | | | | | + + + + + + | CHLORIDE, | 104. | mmol/l | | | | PLASMA | | | | | | (LAB) | | | | | + + + + + + | TOTAL CO2, | 26. | mmol/l | | | | PLASMA | | | | | | (LAB) | | | | | + + + + + + | BUN, PLASMA | 18. | mg/dL | | | | (LAB) | | | | | + + + + + + | CREATININE | 0.9 | mg/dL | | | | PLASMA | | | | | | (LAB) | | | | | + + + + + + | GLUCOSE, | 98. | mg/dL | | | | PLASMA | | | | | | (LAB) | | | | | + + + + + + | CALCIUM, | 9.4 | mg/dL | | | | PLASMA | | | | | | (LAB) | | | | | + + + + + + | MAGNESIUM,P | 1.9 | mg/dL | | | | LASMA | | | | | + + + + + + | PHOSPHORUS, | 4.3 (H) | mg/dL | | | | PLASMA | | | | | | (LAB) | | | | | + + + + + + | URIC ACID, | 4.7 | mg/dL | | | | PLASMA | | | | | | (LAB) | | | | | + + + + + + | AST(SGOT) | 23. | U/L | | | + + + + + + | ALT (SGPT) | 37. (H) | U/L | | | + + + + + + | ALK PHOS | 70. | U/L | | | + + + + + + | LD TOTAL, | 155. | U/L | | | | PLASMA | | | | | + + + + + + | BILIRUBIN | 0. | mg/dL | | | | DIRECT | | | | | + + + + + + | BILIRUBIN | 0.3 | mg/dL | | | | TOTAL | | | | | + + + + + + | TOTAL | 6.9 | GM/DL | | | | PROTEIN, | | | | | | PLASMA | | | | | | (LAB) | | | | | + + + + + + | ALBUMIN, | 4. | GM/DL | | | | PLASMA | | | | | | (LAB) | | | | | + + + + + + + + | Specimen | + + | | + + + + + + + | Performing | Address | City/State/Zipcode | Phone Number | | Organization | | | | + + + + + | [facility] | [address] | [place] [address] | | | PATHOLOGY | [address] | | | + + + + + CBC TESTS 2 (01/01/1994 10:37 AM PST) + + + + + + | Component | Value | Ref Range | Performed | Pathologist | | | | | At | Signature | + + + + + + | WHITE CELL | 9.3 | K/CU MM | | | | COUNT | | | | | + + + + + + | RED CELL | 4.59 | M/CU MM | | | | COUNT | | | | | + + + + + + | HEMOGLOBIN | 14.9 | GM/DL | | | + + + + + + | HEMATOCRIT | 42.6 | % | | | + + + + + + | MCV | 92.8 | FL | | | + + + + + + | MCH | 32.5 (H) | PG | | | + + + + + + | MCHC | 34.9 (H) | GM/DL | | | + + + + + + | RDW | 12.2 | % | | | + + + + + + | PLATELET | 255. | K/CU MM | | | | COUNT | | | | | + + + + + + | MPV | 8.7 | FL | | | + + + + + + | SEDIMENTATI | 11. | MM/HR | | | | ON RATE | | | | | + + + + + + + + | Specimen | + + | | + + + + + + + | Performing | Address | City/State/Zipcode | Phone Number | | Organization | | | | + + + + + | [facility] | [address] | [place] [address] | | | PATHOLOGY | [address] | | | + + + + + IMMUNOLOGY TESTS 1 (01/01/1994 10:37 AM PST) + + + + + + | Component | Value | Ref Range | Performed | Pathologist | | | | | At | Signature | + + + + + + | FOLATE,SERU | 5.7 | nG/mL | | | | M | | | | | + + + + + + + + | Specimen | + + | | + + + + + + + | Performing | Address | City/State/Zipcode | Phone Number | | Organization | | | | + + + + + | [facility] | [address] | [place] [address] | | | PATHOLOGY | [address] | | | + + + + + MISCELLANEOUS CHEMISTRY TESTS (01/01/1994 10:37 AM PST) + + + + + + | Component | Value | Ref Range | Performed | Pathologist | | | | | At | Signature | + + + + + + | TSH | 0.74 | mIU/ML | | | + + + + + + | FREE T4, | 1.1 | ng/dL | | | | SERUM | | | | | + + + + + + + + | Specimen | + + | | + + + + + + + | Performing | Address | City/State/Zipcode | Phone Number | | Organization | | | | + + + + + | [facility] | [address] | [place] [address] | | | PATHOLOGY | [address] | | | + + + + + URINALYSIS TESTS (12/31/1993 4:35 AM PST) + + + + + + | Component | Value | Ref Range | Performed | Pathologist | | | | | At | Signature | + + + + + + | COLOR(UR) | YELLOW | | | | + + + + + + | APPEARANCE | SLIGHTLY CLOUDY | | | | + + + + + + | GLUCOSE(UR) | NEG | mg/dL | | | + + + + + + | BILIRUBIN | NEG | mg/dL | | | + + + + + + | KETONES | NEG | mg/dL | | | + + + + + + | SPECIFIC | 1.01 | mg/dL | | | | GRAVITY | | | | | + + + + + + | BLOOD | NEG | mg/dL | | | + + + + + + | PH(UR) | 7. | mg/dL | | | + + + + + + | PROTEIN(LAB | NEG | mg/dL | | | | ) | | | | | + + + + + + | UROBILINOGE | 1. | MARILOU UNITS | | | | N | | | | | + + + + + + | NITRITES | NEG | MARILOU UNITS | | | + + + + + + | LEUKOCYTE | NEG | MARILOU UNITS | | | | ESTERASE | | | | | + + + + + + | WHITE CELLS | NONE | /HPF | | | + + + + + + | RED CELLS | 0-2 | /HPF | | | + + + + + + | NON-SQUAMOU | NONE | /HPF | | | | S EPITH | | | | | + + + + + + | SQUAMOUS | OCC | /HPF | | | | EPITHELIAL | | | | | + + + + + + | BACTERIA | OCC | /HPF | | | + + + + + + | MUCOUS | NONE | /HPF | | | + + + + + + | HYALINE | NONE | /LPF | | | | CASTS | | | | | + + + + + + | GRANULAR | NONE | /LPF | | | | CASTS | | | | | + + + + + + | CELLULAR | NONE | /LPF | | | | CASTS | | | | | + + + + + + + + | Specimen | + + | | + + + + + + + | Performing | Address | City/State/Zipcode | Phone Number | | Organization | | | | + + + + + | [facility] | [address] | [place] [address] | | | PATHOLOGY | [address] | | | + + + + + documented in this encounter Visit Diagnoses Not on filedocumented in this encounter"
--- OUTSIDE RECORDS SUMMARY | ~2018-12-23 | XMS | Encounter Summary ---
Demographics + + + | Address | [address] | | | [place] [address] | + + + | Home Phone [...] + + + | Author | [facility] | + + + | Organization | [facility] | + + + | Address | Unknown | + + + | Phone | Unavailable | + + + Support + + + + + | Name | Relationship | Address | Phone | + + + + + | Zaida Putnam | ECON | [address] | | | | | [place], | | | | | [place] [address] | | + + + + + Care Team Providers + +------+ + | Care Tie Man Name | Role | Phone | [...] as of this encounter Progress Notes Interface, Assistant Manager Quality Management In - 02/28/2006 3:08 AM PST [facility] Account No. PROGRESS RECORD Name Litzy Evans Birthdate 1955 Date Probl Time em FORMAT: PROBLEM NUMBER and TITLE: S=Subjective Number O=Objective A=Analysis P=Plans CLINIC DATE: 11/05/1997 November 05, 1997 OLEG PUGH MD [address] [facility] [address] RE: Litzy EVANS. MR#: [id number] : [id number] Pugh: I had the pleasure of seeing your patient, Ms. Litzy Evans, at [facility] today for evaluation of her chronic pain problem. Ms. Evans tells me that she has moved to [place] within the last week and plans to establish care in the month of November with Dr. Kaleb Velásquez here at [facility]. Therefore, I will send you a copy of this letter, as well as Dr. Velásquez. Please allow me to briefly review Ms. Evans' history, as well as my evaluations, findings, and suggestions. Ms. Evans is a 42-year-old woman with a longstanding history of low back pain who had been previously treated at the [facility] prior to my arrival at [facility]. She states that she has had [...] tried a variety of medications including Tegretol, [place], Amitriptyline, and other antidepressants. CURRENT MEDICATIONS: 1. [...] has recently ended. She has moved to [place] and is now living with an ex-'s mother. 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 She smokes one pack of cigarettes a [...] also with some difficulty. Romberg is negative. Bveomi-ypge-wzwnqa is normal. On examination of her chest [...] normal limits." IMPRESSION: 1. Fibromyalgia by 1990 [employer] criteria. 2. Significant psychiatric [...] her care from Internal Medicine here at [facility], would be for her to see [...] the 1995 intractable pain act here in [place]. I agreed with Ms. Evans that should she establish care with Dr. Velásquez here at [facility], I would be happy to discuss her care with him at that point. In the meantime, I have nothing additional or specific to offer for Ms. Evans' care. Thank you very much for your referral of Ms. Evans to the [facility] Management Center here at [facility]. If you have any questions or concerns, please do not hesitate to give me a call at [phone]. Monroe Pruitt M.D. Auto Overhauler, Anesthesiology Director of Pain Management Center BRS:mau cc: Kaleb Velásquez M.D. Auto Overhauler, Medicine Richie Her M.D. Auto Overhauler, Department of Orthopedics and Rehabilitation nterface, Assistant Manager Quality Management In - 02/28/2006 3:08 AM PSTCLINIC DATE: 11/05/97 PHONE CALL: Litzy called today requesting more Vicodin. She wanted it called to [facility]. I spoke with Dr. Her in regard to this and he declined the request. I called the patient at 16:15 and left a message to that effect. The phone number is [phone]. Lindsay Romeo R.N. Orthopedics HALLIE/emily P cc: documente d in this encounter Plan of Treatment Not on filedocumented as of this encounter Visit Diagnoses Not on filedocumented in this encounter
--- OUTSIDE RECORDS SUMMARY | ~2018-12-23 | XMS | Encounter Summary ---
Demographics + + + | Address | [address] | | | [place] [address] | + + + | Home Phone | | + + + | Preferred Language | Unknown | + + + | Marital Status | Single | + + + | Anabaptism Affiliation | Unknown | + + + | Race | White | + + + | Ethnic Group | Not or | + + + Author + + + | Author | [facility] | + + + | Organization | [facility] | + + + | Address | Unknown | + + + | Phone | Unavailable | + + + Support + + + + + | Name | Relationship | Address | Phone | + + + + + | Zaida Putnam | ECON | [address] | | | | | [place], | | | | | [place] [address] | | + + + + + Care Team Providers + +------+ + | Care Shirt Folder Name | Role | Phone | + +------+ + PCP | Unavailable | + +------+ + Encounter Details +--------+ + + + + | Date | Type | Department | Care Team | Description | +--------+ + + + + | 07/24/ | Office | General Internal | Note, Outpatient | Progress Note | | 1994 | Visit-Trans | Medicine [address] | Clinic | | | | [place] | [address] | | | | | | Mailcode: L475 | | | | | | Outpatient Clinic | | | | | | [address] | | | | | | [place], [place] | | | | | | [address] | | | | | | [phone] | | | +--------+ + + + [...] as of this encounter Progress Notes Interface, Liquified Natural Gas Specialist In - 06/05/2006 1:00 AM PDT CLINIC [...] remained quite high including continued attendance of restorationism and working on jhwcze-riu-mggby activities. She denies changes in bladder or [...] 2. Bladder dysfunction, resolved. John Mulligan M.D. Chief Specialist Leed, Anesthesiology Director, Pain Management Services PK:bony documented in this encounter Plan of Treatment Not on filedocumented as of this encounter Visit Diagnoses Not on filedocumented in this encounter"
--- OUTSIDE RECORDS SUMMARY | ~2018-12-23 | XMS | Encounter Summary ---
Demographics + + + | Address | [address] | | | [place] [address] | + + + | Home Phone | | + + + | Preferred Language | Unknown | + + + | Marital Status | Single | + + + | Muslim Affiliation | Unknown | + + + | Race | White | + + + | Ethnic Group | Not or | + + + Author + + + | Author | [facility] | + + + | Organization | [facility] | + + + | Address | Unknown | + + + | Phone | Unavailable | + + + Support + + + + + | Name | Relationship | Address | Phone | + + + + + | Zaida Putnam | ECON | [address] | | | | | [place], | | | | | [place] [address] | | + + + + + Care Team Providers + +------+ + | Care Assistant Athletic Trainer Name | Role | Phone | + +------+ + PCP | Unavailable | + +------+ + Encounter Details +--------+ + + + + | Date | Type | Department | Care Team | Description | +--------+ + + + + | 09/20/ | Office | General Internal | Note, Outpatient | Progress Note | | 1994 | Visit-Trans | Medicine [address] | Clinic | | | | [place] | [address] | | | | | | Mailcode: L475 | | | | | | Outpatient Clinic | | | | | | [address] | | | | | | [place], [place] | | | | | | [address] | | | | | | [phone] | | | +--------+ + + + [...] as of this encounter Progress Notes Interface, Quarter Inspector In - 06/01/2006 3:00 AM PDT CLINIC DATE: 09/20/94 PSYCHIATRY CLINIC: OBSESSIVE-COMPULSIVE DISORDER (OCD) PSYCHIATRIC CLINIC EVALUATION: IDENTIFYING INFORMATION: Ms. Evans is a 39-year-old white female who is self-referred to the OCD Clinic for evaluation of potential obsessive-compulsive disorder symptomatology. Sources of information include the patient who appears to be a reliable historian as well as the [facility] chart including a neuropsychological evaluation conducted on [...] Four months later, she was hospitalized at [facility] for 10 days at the recommendation [...] 1994. 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 Since that time, she has been on Social Security disability. Her boyfriend works in an auto shop that they bought several years ago. She has tried to work in the [employer]Purplle shop but is unable to tolerate it [...] Monroy M.D. Resident, Psychiatry Jamir Payan M.D. Set Up Machinist, Psychiatry and occurred after her last divorce. [...] 1994. 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 Since that time, she has been on Social Security disability. Her boyfriend works in an auto shop that they bought several years ago. She has tried to work in the [employer] shop but is unable to tolerate it [...] interview carrying the recent article from the [facility] on OCD. She easily engages in [...] RECOMMENDATIONS: 1. The patient will take the [place] Obsessive-Compulsive computerized test today. She was also [...] Monroy M.D. Resident, Psychiatry Jamir Payan M.D. Set Up Machinist, Psychiatry Aaron:bony WOOD:bony C: 10/04/94 shubham documented in this encounter Plan of Treatment Not on filedocumented as of this encounter Visit Diagnoses Not on filedocumented in this encounter
--- OUTSIDE RECORDS SUMMARY | ~2018-12-23 | XMS | Encounter Summary ---
Demographics + + + | Address | [address] | | | [place] [address] | + + + | Home Phone [...] [place], | | | | | [place] [address] | | + + + + + Care Team Providers + +------+ + | Care Clip On Sunglasses Inspector Name | Role | Phone | + [...] as of this encounter Progress Notes Interface, Cartographic Engineer In - 02/28/2006 3:08 AM [facility] [place] [address] [place] [address] or November 05, 1997 OLEG PUGH MD [address] [facility] [address] RE: LITZY EVANS MR#: [id number] : [id number] Pugh: I had the pleasure of seeing your patient, Ms. Litzy Evans, at the [facility] today for evaluation of her chronic pain problem. Ms. Evans tells me that she has moved to [place] within the last week and plans to establish care in the month of November with Dr. Kaleb Velásquez here at [facility]. Therefore, I will send you a copy of this letter, as well as Dr. Velásquez. Please allow me to briefly review Ms. Evans' history, as well as my evaluations, findings, and suggestions. Ms. Evans is a 42-year-old woman with a longstanding history of low back pain who had been previously treated at the [facility] prior to my arrival at [facility]. She states that she has had [...] tried a variety of medications including Tegretol, Eros, Amitriptyline, and other antidepressants. CURRENT MEDICATIONS: 1. [...] has recently ended. She has moved to [place] and is now living with an ex-'s mother. 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 She smokes one pack of cigarettes a [...] also with some difficulty. Romberg is negative. Mqnbjm-xawa-accyzb is normal. On examination of her chest [...] normal limits." IMPRESSION: 1. Fibromyalgia by 1990 [employer] [employer] criteria. 2. Significant psychiatric [...] care from Internal Medicine here at [facility], would be for her to see [...] the 1995 intractable pain act here in [place]. I agreed with Ms. Evans that should she establish care with Dr. Velásquez here at [facility], I would be happy to discuss her care with him at that point. In the meantime, I have nothing additional or specific to offer for Ms. Evans' care. Thank you very much for your referral of Ms. Evans to the Pain Management Center here at [facility]. If you have any questions or concerns, please do not hesitate to give me a call at [phone]. Monroe Pruitt M.D. Senior Sales Operations Manager, Anesthesiology Director of Pain Management Center BRS:mau cc: Kaleb Velásquez M.D. Senior Sales Operations Manager, Medicine Richie Her, M.D. Senior Sales Operations Manager, Department of Orthopedics and Rehabilitation Kaleb Velásquez M.D. Senior Sales Operations Manager, Medicine Richie Her M.D. Senior Sales Operations Manager, Department of Orthopedics and Rehabilitation documented in this encounter Plan of Treatment Not on filedocumented as of this encounter Visit Diagnoses Not on filedocumented in this encounter
--- OUTSIDE RECORDS SUMMARY | ~2018-12-23 | XMS | Encounter Summary ---
Demographics + + + | Address | [address] | | | [place] [address] | + + + | Home Phone [...] [place], | | | | | [place] [address] | | + + + + + Care Team Providers + +------+ + | Care Rn Intern Name | Role | Phone | + +------+ + PCP | Unavailable | + +------+ + Encounter Details +--------+ + + + + | Date | Type | Department | Care Team | Description | +--------+ + + + + | 08/14/ | Office | General Internal | Note, Outpatient | Progress Note | | 1994 | Visit-Trans | Medicine [address] | Clinic | | | | [place] | [address] | | | | | | Mailcode: [id number] | | | | | | Outpatient Clinic | | | | | | [address] | | | | | | [place], [place] | | | | | | [address] | | | | | | [phone] | | | +--------+ + + + [...] as of this encounter Progress Notes Interface, Solar Electric/Photovoltaic Installer In - 06/05/2006 1:00 AM PDT CLINIC [...] Ms. Evans remains quite active with her spiritism organization oand is noticing that she has [...] outlets of her anger. John Mulligan M.D. Pbx Teacher, Anesthesiology Director, Pain Management Services HUI/fernando documented in this encounter Plan of Treatment Not on filedocumented as of this encounter Visit Diagnoses Not on filedocumented in this encounter"
--- OUTSIDE RECORDS SUMMARY | ~2018-12-23 | XMS | Encounter Summary ---
Demographics + + + | Address | [address] | | | [place] [address] | + + + | Home Phone [...] Author | [facility] | + + + | Organization | [facility] | + + + | Address | Unknown | + + + | Phone | Unavailable | + + + Support + + + + + | Name | Relationship | Address | Phone | + + + + + | Zaida Putnam | ECON | [address] | | | | | [place], | | | | | [place] [address] | | + + + + + Care Team Providers + +------+ + | Care Community Resource Officer Name | Role | Phone | [...] as of this encounter Progress Notes Interface, Chairman Of The Board In - 02/28/2006 3:08 AM PST [facility] Account No. PROGRESS RECORD Name Litzy Evans Birthdate 1955 Date Probl Time em FORMAT: PROBLEM NUMBER and TITLE: S=Subjective Number O=Objective A=Analysis P=Plans CLINIC DATE: 11/05/1997 November 05, 1997 OLEG PUGH MD [address] [facility] [address] RE: Litzy EVANS. MR#: [id number] : [id number] Pugh: I had the pleasure of seeing your patient, Ms. Litzy Evans, at the [facility] today for evaluation of her chronic pain problem. Ms. Evans tells me that she has moved to [place] within the last week and plans to establish care in the month of November with Dr. Kaleb Velásquez here at [facility]. Therefore, I will send you a copy of this letter, as well as Dr. Velásquez. Please allow me to briefly review Ms. Evans' history, as well as my evaluations, findings, and suggestions. Ms. Evans is a 42-year-old woman with a longstanding history of low back pain who had been previously treated at the [facility] prior to my arrival at [facility]. She states that she has had the [...] tried a variety of medications including Tegretol, [place], Amitriptyline, and other antidepressants. CURRENT MEDICATIONS: 1. [...] has recently ended. She has moved to [place] and is now living with an ex-'s mother. 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 She smokes one pack of cigarettes a [...] also with some difficulty. Romberg is negative. Jbniqx-icqc-ubktoz is normal. On examination of her chest [...] normal limits." IMPRESSION: 1. Fibromyalgia by 1990 [place] [employer] criteria. 2. Significant psychiatric [...] her care from Internal Medicine here at [facility], would be for her to see Vaishnavi [...] the 1995 intractable pain act here in [place]. I agreed with Ms. Evans that should she establish care with Dr. Velásquez here at [facility], I would be happy to discuss her care with him at that point. In the meantime, I have nothing additional or specific to offer for Ms. Evans' care. Thank you very much for your referral of Ms. Evans to the Pain Management Center here at [facility]. If you have any questions or concerns, please do not hesitate to give me a call at [phone]. Monroe Pruitt M.D. Dog Show Judge, Anesthesiology Director of Pain Management Center BRS:mau cc: Kaleb Velásquez M.D. Dog Show Judge, Medicine Richie Her M.D. Dog Show Judge, Department of Orthopedics and Rehabilitation nterface, Chairman Of The Board In - 02/28/2006 3:08 AM PSTCLINIC DATE: 11/05/97 PHONE CALL: Litzy called today requesting more Vicodin. She wanted it called to [facility]. I spoke with Dr. Her in regard to this and he declined the request. I called the patient at 16:15 and left a message to that effect. The phone number is [phone]. Lindsay Romeo R.N. Orthopedics HALLIE/emily P cc: documente d in this encounter Plan of Treatment Not on filedocumented as of this encounter Visit Diagnoses Not on filedocumented in this encounter
--- OUTSIDE RECORDS SUMMARY | ~2018-12-23 | XMS | Encounter Summary ---
Demographics + + + | Address | [address] | | | [place] [address] | + + + | Home Phone [...] + + + | Author | [facility] | + + + | Organization | [facility] | + + + | Address | Unknown | + + + | Phone | Unavailable | + + + Support + + + + + | Name | Relationship | Address | Phone | + + + + + | Zaida Putnam | ECON | [address] | | | | | [place], | | | | | [place] [address] | | + + + + + Care Team Providers + +------+ + | Care Electric Mule Driver Name | Role | Phone | + [...] [address] | | | | | | [place] | | | | | | [address] | | | +--------+ + + + [...] as of this encounter Progress Notes Interface, Wind Project Manager In - 06/14/2006 5:08 AM PDT [address] [address] [facility] January 08, 1994 DARYL ELLIS PH D MONITORING COORDINATOR MEDICAL PSYCHOLOGY [address] [address] RE:Litzy Evans MR:[id number] Ellis: Thank [...] any further information. Sincerely, Faisal Grijalva M.D. Trolley Wire Installer, Neurology PIYUSH:sailaja January 09, 1994 documented in this encounter Plan of Treatment Not on filedocumented as of this encounter Visit Diagnoses Not on filedocumented in this encounter"
--- OUTSIDE RECORDS SUMMARY | ~2018-12-23 | XMS | Encounter Summary ---
Demographics + + + | Address | [address] | | | [place] [address] | + + + | Home Phone | | + + + | Preferred Language | Unknown | + + + | Marital Status | Single | + + + | Buddhism Affiliation | Unknown | + + + [...] [place], | | | | | [place] [address] | | + + + + + Care Team Providers + +------+ + | Care Platform Software Engineer Name | Role | Phone | + +------+ + PCP | Unavailable | + +------+ + Encounter Details +--------+ + + + + | Date | Type | Department | Care Team | Description | +--------+ + + + + | 09/26/ | Results | | Other, Faculty | | | 1993 | Only | | [phone] | | +--------+ + + + + [...]
--- OUTSIDE RECORDS SUMMARY | ~2018-12-23 | XMS | Encounter Summary ---
Demographics + + + | Address | [address] | | | [place] [address] | + + + | Home Phone | | + + + | Preferred Language | Unknown | + + + | Marital Status | Single | + + + | Oriental Orthodox Affiliation | Unknown | + + [...] [place], | | | | | [place] [address] | | + + + + + Care Team Providers + +------+ + | Care Campus Police Officer Name | Role | Phone | [...]
--- OUTSIDE RECORDS SUMMARY | ~2018-12-23 | XMS | Encounter Summary ---
Demographics + + + | Address | [address] | | | [place] [address] | + + + | Home Phone [...] Author + + + | Author | [facility] | + + + | Organization | [facility] | + + + | Address | Unknown | + + + | Phone | Unavailable | + + + Support + + + + + | Name | Relationship | Address | Phone | + + + + + | Zaida Putnam | ECON | [address] | | | | | [place], | | | | | [place] [address] | | + + + + + Care Team Providers + +------+ + | Care Child Care Centre Director Name | Role | Phone | [...] as of this encounter Progress Notes Interface, Hse Specialist In - 02/28/2006 3:08 AM PSTCLINIC DATE: [...] recently by a family medicine service in [place], [place]. 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 Richie Her M.D. Temple Marker, Department of Orthopedics and Rehabilitation DANELLE/emily P documented in this encounter Plan of Treatment Not on filedocumented as of this encounter Visit Diagnoses Not on filedocumented in this encounter"
--- OUTSIDE RECORDS SUMMARY | ~2018-12-23 | XMS | Encounter Summary ---
Demographics + + + | Address | [address] | | | [place] [address] | + + + | Home Phone [...] [place], | | | | | [place] [address] | | + + + + + Care Team Providers + +------+ + | Care Leaf Binner Name | Role | Phone | + [...] as of this encounter Progress Notes Interface, Nursery Helper In - 02/14/2006 5:12 AM PSTCLINIC DATE: [...]
--- OUTSIDE RECORDS SUMMARY | ~2018-12-23 | XMS | Encounter Summary ---
Demographics + + + | Address | [address] | | | [place] [address] | + + + | Home Phone [...] [place], | | | | | [place] [address] | | + + + + + Care Team Providers + +------+ + | Care Pigment Furnace Tender Name | Role | Phone | [...] CARLOS Valdez | | | | | [address] | [place], [place] | | | | | Vernell Correa Mailcode: | [id number] | | | | | [id number] Outpatient | [phone] | | | | | Clinic Building | | | | | | [place], [place] | | | | | | [address] | | | | | | [phone] | | | +--------+ + + + [...] | | + +---------+ + + | [facility] DEPARTMENT | | | | | RADIOLOGY | | | | + +---------+ + + documented in this encounter Visit Diagnoses Not on filedocumented in this encounter"
--- OUTSIDE RECORDS SUMMARY | ~2018-12-23 | XMS | Encounter Summary ---
Demographics + + + | Address | [address] | | | [place] [address] | + + + | Home Phone [...] + + + | Author | [facility] | + + + | Organization | [facility] | + + + | Address | Unknown | + + + | Phone | Unavailable | + + + Support + + + + + | Name | Relationship | Address | Phone | + + + + + | Zaida Putnam | ECON | [address] | | | | | [place], | | | | | [place] [address] | | + + + + + Care Team Providers + +------+ + | Care Carpenter Inspector Name | Role | Phone | [...] as of this encounter Progress Notes Interface, Truck Body Repairer In - 02/23/2006 5:02 AM PSTCLINIC [...] years ago when she read about an [facility] clinic, and presented by self-referral to the [...] medication in September when she moved from [place] to [place] and switched providers. Patient states that since [...] Patient was seen by Dr. Browning in [place], [place], at which time she was given [...] Recommended group therapy. Patient is covered through [facility] and she will investigate possible group therapy at the [facility] system. Patient was seen and interviewed with Dr. Anabelle Garcia. Frederic Koch M.D. Resident, Internal Medicine Anabelle Garcia M.D. Color Print Inspector, Psychiatry ELDA/ruby d ocumented in this encounter Plan of Treatment Not on filedocumented as of this encounter Visit Diagnoses Not on filedocumented in this encounter"
--- OUTSIDE RECORDS SUMMARY | ~2018-12-23 | XMS | Encounter Summary ---
Demographics + + + | Address | [address] | | | [place] [address] | + + + | Home Phone [...] [place], | | | | | [place] [address] | | + + + + + Care Team Providers + +------+ + | Care Executive Director Contract Shop Name | Role | Phone | + [...] as of this encounter Progress Notes Interface, Nursing Assoc In - 02/23/2006 5:02 AM PSTCLINIC DATE: [...] M.D. Resident, Internal Medicine Wallace Szymanski M.D. Urgent Care Nurse Practitioner, Internal Medicine TORI:mau d ocumented in this encounter Plan of Treatment Not on filedocumented as of this encounter Visit Diagnoses Not on filedocumented in this encounter
--- OUTSIDE RECORDS SUMMARY | ~2018-12-23 | XMS | Encounter Summary ---
Demographics + + + | Address | [address] | | | [place] [address] | + + + | Home Phone [...] + + + | Author | [facility] | + + + | Organization | [facility] | + + + | Address | Unknown | + + + | Phone | Unavailable | + + + Support + + + + + | Name | Relationship | Address | Phone | + + + + + | Zaida Putnam | ECON | [address] | | | | | [place], | | | | | [place] [address] | | + + + + + Care Team Providers + +------+ + | Care Sanitary Aide Name | Role | Phone | [...]
--- OUTSIDE RECORDS SUMMARY | ~2018-12-23 | XMS | Encounter Summary ---
Demographics + + + | Address | [address] | | | [place] [address] | + + + | Home Phone [...] [place], | | | | | [place] [address] | | + + + + + Care Team Providers + +------+ + | Care Managing Cognitive Engineer Name | Role | Phone | [...] as of this encounter Progress Notes Interface, Airway Controller In - 02/28/2006 3:08 AM [facility] [place] [address] [place] [address] or November 05, 1997 OLEG PUGH MD [address] [facility] [address] RE: LITZY EVANS MR#: [id number] Pugh: I had the pleasure of seeing your patient, Ms. Litzy Evans, at the [facility] today for evaluation of her chronic pain problem. Ms. Evans tells me that she has moved to [place] within the last week and plans to establish care in the month of November with Dr. Kaleb Velásquez here at [facility]. Therefore, I will send you a copy of this letter, as well as Dr. Velásquez. Please allow me to briefly review Ms. Evans' history, as well as my evaluations, findings, and suggestions. Ms. Evans is a 42-year-old woman with a longstanding history of low back pain who had been previously treated at the [facility] prior to my arrival at [facility]. She states that she has had the [...] tried a variety of medications including Tegretol, [place], Amitriptyline, and other antidepressants. CURRENT MEDICATIONS: [...] has recently ended. She has moved to [place] and is now living with an ex-'s mother. 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 She smokes one pack of [...] also with some difficulty. Romberg is negative. Vvwstf-vmzq-iuvwvm is normal. On examination of her chest [...] normal limits." IMPRESSION: 1. Fibromyalgia by 1990 [place] [employer] criteria. 2. Significant psychiatric [...] her care from Internal Medicine here at [facility], would be for her to see Vaishnavi [...] the 1995 intractable pain act here in [place]. I agreed with Ms. Evans that should she establish care with Dr. Velásquez here at [facility], I would be happy to discuss her care with him at that point. In the meantime, I have nothing additional or specific to offer for Ms. Evans' care. Thank you very much for your referral of Ms. Evans to the [facility] here at [facility]. If you have any questions or concerns, please do not hesitate to give me a call at [phone]. Monroe Pruitt M.D. Brick Unloader Tender, Anesthesiology Director of Pain Management Center BRS:mau cc: Kaleb Velásquez M.D. Brick Unloader Tender, Medicine Richie Her, M.D. Brick Unloader Tender, Department of Orthopedics and Rehabilitation Kaleb Velásquez M.D. Brick Unloader Tender, Medicine Richie Her M.D. Brick Unloader Tender, Department of Orthopedics and Rehabilitation documented in this encounter Plan of Treatment Not on filedocumented as of this encounter Visit Diagnoses Not on filedocumented in this encounter
--- OUTSIDE RECORDS SUMMARY | ~2018-12-23 | XMS | Encounter Summary ---
Demographics + + + | Address | [address] | | | [place] [address] | + + + | Home Phone [...] [place], | | | | | [place] [address] | | + + + + + Care Team Providers + +------+ + | Care Engine Designer Name | Role | Phone | + +------+ + PCP | Unavailable | + +------+ + Encounter Details +--------+ + + + + | Date | Type | Department | Care Team | Description | +--------+ + + + + | 09/26/ | Results | | Other, Faculty | | | 1993 | Only | | [phone] | | +--------+ + + + + [...]
--- OUTSIDE RECORDS SUMMARY | ~2018-12-23 | XMS | Encounter Summary ---
Demographics + + + | Address | [address] | | | [place] [address] | + + + | Home Phone [...] Author + + + | Author | [facility] | + + + | Organization | [facility] | + + + | Address | Unknown | + + + | Phone | Unavailable | + + + Support + + + + + | Name | Relationship | Address | Phone | + + + + + | Zaida Putnam | ECON | [address] | | | | | [place], | | | | | [place] [address] | | + + + + + Care Team Providers + +------+ + | Care Party Plan Demonstrator Name | Role | Phone | + [...] as of this encounter Progress Notes Interface, Receptionist In - 02/28/2006 3:08 AM PSTCLINIC DATE: [...] recently by a family medicine service in [place], [place]. 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 Richie Her M.D. Ham Rolling Machine Operator, Department of Orthopedics and Rehabilitation DANELLE/emily P documented in this encounter Plan of Treatment Not on filedocumented as of this encounter Visit Diagnoses Not on filedocumented in this encounter"
--- OUTSIDE RECORDS SUMMARY | ~2018-12-23 | XMS | Encounter Summary ---
Demographics + + + | Address | [address] | | | [place] [...] Author + + + | Author | [facility] | + + + | Organization | [facility] | + + + | Address | Unknown | + + + | Phone | Unavailable | + + + Support + + + + + | Name | Relationship | Address | Phone | + + + + + | Zaida Putnam | ECON | [address] | | | | | [place], | | | | | [place] [address] | | + + + + + Care Team Providers + +------+ + | Care Diesel Mechanic Farm Name | Role | Phone | + +------+ + PCP | Unavailable | + +------+ + Encounter Details +--------+ + + + + | Date | Type | Department | Care Team | Description | +--------+ + + + + | 09/04/ | Office | General Internal | Note, Outpatient | Progress Note | | 1994 | Visit-Trans | Medicine [address] | Clinic | | | | [place] | [address] | | | | | | Mailcode: L475 | | | | | | Outpatient Clinic | | | | | | [address] | | | | | | [place], [place] | | | | | | [address] | | | | | | [phone] | | | +--------+ + + + [...] as of this encounter Progress Notes Interface, Electric Power Line Repairer In - 06/03/2006 2:00 AM PDT CLINIC [...] Ms. Evans has not been attending her mandaeism on Sundays but continues to go to local mandaeism meetings. She denies sedation, and nausea and [...] increased social function and participation in her moravian group. John Mulligan M.D. Stunner, Anesthesiology Director, Pain Management Services PK:bony cc: CAROLINE YOON MD CIVIL SERVICE CLERK [facility]THOPEDICS [facility] documented in this encounter Plan of Treatment Not on filedocumented as of this encounter Visit Diagnoses Not on filedocumented in this encounter
--- OUTSIDE RECORDS SUMMARY | ~2018-12-23 | XMS | Encounter Summary ---
Demographics + + + | Address | [address] | | | [place] [address] | + + + | Home Phone [...] [place], | | | | | [place] [address] | | + + + + + Care Team Providers + +------+ + | Care Online Trader Name | Role | Phone | + +------+ + PCP | Unavailable | + +------+ + Encounter Details +--------+ + + + + | Date | Type | Department | Care Team | Description | +--------+ + + + + | 02/02/ | Results | Registration [id number] | | | | 1997 | Only | [address] | | | | | | [address] Mailcode: [id number] | | | | | | [place], [place] | | | | | | [address] | | | | | | [phone] | | | +--------+ + + + [...] | CBC TESTS 2 | Routin | 02/02/1998 | | Results for this | | | e | 11:34 AM | | procedure are in the | | | | PST | | results section. | + +--------+ + + + documented in this encounter Results CBC TESTS 2 (02/02/1998 11:34 AM PST) + + + + + + | Component | Value | Ref Range | Performed | Pathologist | | | | | At | Signature | + + + + + + | WHITE CELL | 5.7 | K/CU MM | | | | COUNT | | | | | + + + + + + | RED CELL | 4.83 | M/CU MM | | | | COUNT | | | | | + + + + + + | HEMOGLOBIN | 15.7 (H) | GM/DL | | | + + + + + + | HEMATOCRIT | 45. | % | | | + + + + + + | MCV | 93.2 | FL | | | + + + + + + | MCH | 32.4 (H) | PG | | | + + + + + + | MCHC | 34.8 (H) | GM/DL | | | + + + + + + | RDW | 11.8 | % | | | + + + + + + | PLATELET | 221. | K/CU MM | | | | [...] | + + + + + | [facility] | [address] | [place] [address] | | | PATHOLOGY | [address] | | | + + + + + documented in this encounter Visit Diagnoses Not on filedocumented in this encounter"
--- OUTSIDE RECORDS SUMMARY | ~2018-12-23 | XMS | Encounter Summary ---
Demographics + + + | Address | [address] | | | [place] [address] | + + + | Home Phone [...] Author + + + | Author | [facility] | + + + | Organization | [facility] | + + + | Address | Unknown | + + + | Phone | Unavailable | + + + Support + + + + + | Name | Relationship | Address | Phone | + + + + + | Zaida Putnam | ECON | [address] | | | | | [place], | | | | | [place] [address] | | + + + + + Care Team Providers + +------+ + | Care Assistant Shift Supervisor Name | Role | Phone | [...] as of this encounter Progress Notes Interface, Foundry Operator In - 02/09/2006 5:05 AM PSTCLINIC DATE: [...]
--- OUTSIDE RECORDS SUMMARY | ~2018-12-23 | XMS | Encounter Summary ---
Demographics + + + | Address | [address] | | | [place] [address] | + + + | Home Phone [...] [place], | | | | | [place] [address] | | + + + + + [...] as of this encounter Progress Notes Interface, Fitter Mechanic In - 02/09/2006 5:05 AM PSTCLINIC DATE: [...]
--- OUTSIDE RECORDS SUMMARY | ~2018-12-23 | XMS | Encounter Summary ---
Demographics + + + | Address | [address] | | | [place] [address] | + + + | Home Phone [...] [place], | | | | | [place] [address] | | + + + + + Care Team Providers + +------+ + | Care Sheet Rock Nailer Name | Role | Phone | + [...] as of this encounter Progress Notes Interface, Texture Artist In - 02/14/2006 5:12 AM PSTCLINIC DATE: [...]
--- OUTSIDE RECORDS SUMMARY | ~2018-12-23 | XMS | Encounter Summary ---
Demographics + + + | Address | [address] | | | [place] [address] | + + + | Home Phone [...] + + + | Author | [facility] | + + + | Organization | [facility] | + + + | Address | Unknown | + + + | Phone | Unavailable | + + + Support + + + + + | Name | Relationship | Address | Phone | + + + + + | Zaida Putnam | ECON | [address] | | | | | [place], | | | | | [place] [address] | | + + + + + Care Team Providers + +------+ + | Care Petal Cutter Name | Role | Phone | [...] as of this encounter Progress Notes Interface, Administrative Services Manager In - 02/14/2006 5:12 AM PSTCLINIC DATE: [...]
--- OUTSIDE RECORDS SUMMARY | ~2018-12-23 | XMS | Clinical Summary ---
Demographics + + + | Address | [address] | | | [place] [address] | + + + | Home Phone [...] + | Author | [facility] | | | and [place] | + + + | Organization | [facility] | | | and [place] | + + + | Address | Unknown | + + + | Phone | Unavailable | + + + Support + + +---------+ + | Name | Relationship | Address | Phone | + + +---------+ + | Alondra,Cesar | [place] | Unknown | | + + +---------+ + Care Team Providers + +------+ + | Care Carrot Buncher Name | Role | Phone | + +------+ + | Timothy Elmore | PCP | Unavailable | + +------+ + Allergies + + [...] | times daily as | | | 320 | | e | | capsule | needed for Diarrhea. | | | 17 | | | + + + +---------+------+------+-------+ | FLOVENT HFA 220 | Inhale 1 puff into | | 0 | 05/0 | | Activ | | MCG/ACT inhaler | the lungs 2 times | | | 520 | | e | | | daily. [...] + +---------+ + | Alcohol Use | Drinks/We | oz/Week | Comments | | | ek | | | + + +---------+ + | No | 0 | 0.0 | | | | Standard | | | | | drinks or | | | | | | | | | | equivalen | | | | | t | | | + + +---------+ + [...] Filed Vital Signs + + + + | Vital Sign | Reading | Time Taken | + + + + | Blood Pressure | 136/83 | 08/07/2016 0711 PDT | + + + + | Pulse | 78 | 08/07/2016814 PDT | + + + + | Temperature | 36.5 C (97.7 F) | 08/07/2016710 PDT | + + + + | Respiratory Rate | 20 | 08/07/2016814 PDT | + + + + | Oxygen Saturation | 95% | 08/07/2016814 PDT | + + + + | Inhaled Oxygen | - | - | | Concentration | | | + + + + | Weight | 59.3 kg (130 lb 11.7 | 08/06/20160 PDT | | | oz) | | + + + + | Height | 165.1 cm (5' 5") | 08/06/20161899 PDT | + + + + | Body Mass Index | 21.76 | 08/06/20161899 PDT | + + + + Plan of Treatment [...] | | | | | Pneumococcal 65+ | 9 | | | | Low/Medium Risk (1 | | | | | of 2 - [...] +--------+ +---------+--------+ | MEDICARE | MEDICA | [id number] | 03/21/18 | [phone] | | Medica | | | RE | | 96-Pre | 5 | | re | | | PART A | | sent | | | | | | AND B | | | | | | + +--------+ +--------+ +---------+--------+ | MEDICAID [place] | MEDICA | [id number] | | [phone] | | Medica | [...] +--------+ +--------+ + + | Litzy [place] Marycarmen | Person | Self [birth year] | [address] | | | al/Fam | | 1956 | [phone] | [place] [address] | | | anastasiya | | | 7 (Home) | | + +--------+ +--------+ + + Advance Directives Patient has advance care planning documents, and code status on file. For more information, please contact:[facility] [place] [address] + + + + + | Code Status | Date | Date | Comments | | | Activated | Inactivated | | + + + + + | Full Code | 08/04/2016 | 08/07/2016 | | | | 18:08 | 15:02 | | + + + + +
--- OUTSIDE RECORDS SUMMARY | ~2018-12-23 | XMS | Encounter Summary ---
Demographics + + + | Address | [address] | | | [place] [address] | + + + | Home Phone [...] [place], | | | | | [place] [address] | | + + + + + Care Team Providers + +------+ + | Care Senior Media Planner Name | Role | Phone | + [...] as of this encounter Progress Notes Interface, Scrap Yard Worker In - 02/23/2006 5:02 AM PSTCLINIC DATE: [...] M.D. Resident, Internal Medicine Wallace Szymanski M.D. Aluminum Boat Assembly Supervisor, Internal Medicine TORI:mau d ocumented in this encounter Plan of Treatment Not on filedocumented as of this encounter Visit Diagnoses Not on filedocumented in this encounter
--- OUTSIDE RECORDS SUMMARY | ~2018-12-23 | XMS | Encounter Summary ---
Demographics + + + | Address | [address] | | | [place] [address] | + + + | Home Phone [...] [place], | | | | | [place] [address] | | + + + + + Care Team Providers + +------+ + | Care Car Wash Supervisor Name | Role | Phone | + +------+ + PCP | Unavailable | + +------+ + Encounter Details +--------+ + + + + | Date | Type | Department | Care Team | Description | +--------+ + + + + | 08/14/ | Office | General Internal | Note, Outpatient | Progress Note | | 1994 | Visit-Trans | Medicine [address] | Clinic | | | | [place] | [address] | | | | | | Mailcode: L475 | | | | | | Outpatient Clinic | | | | | | [address] | | | | | | [place], [place] | | | | | | [address] | | | | | | [phone] | | | +--------+ + + + [...] as of this encounter Progress Notes Interface, Merchandise Stocker In - 06/05/2006 1:00 AM PDT CLINIC [...] Ms. 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 John Mulligan M.D. Architect, Anesthesiology Director, Pain Management Services HUI/fernando documented in this encounter Plan of Treatment Not on filedocumented as of this encounter Visit Diagnoses Not on filedocumented in this encounter"
--- OUTSIDE RECORDS SUMMARY | ~2018-12-23 | XMS | Encounter Summary ---
Demographics + + + | Address | [address] | | | [place] [address] | + + + | Home Phone [...] [place], | | | | | [place] [address] | | + + + + + Care Team Providers + +------+ + | Care Training Program Manager Name | Role | Phone | [...] of this encounter Progress Notes Interface, Manager Oracle In - 02/21/2006 3:06 AM PSTCLINIC DATE: [...] M.D. Resident, Internal Medicine Wallace Szymanski M.D. Construction Superintendent, Internal Medicine TORI/niles d ocumented in this encounter Plan of Treatment Not on filedocumented as of this encounter Visit Diagnoses Not on filedocumented in this encounter"
--- OUTSIDE RECORDS SUMMARY | ~2018-12-23 | XMS | Encounter Summary ---
Demographics + + + | Address | [address] | | | [place] [address] | + + + | Home Phone [...] [place], | | | | | [place] [address] | | + + + + + Care Team Providers + +------+ + | Care Construction Project Engineer Name | Role | Phone | + +------+ + PCP | Unavailable | + +------+ + Encounter Details +--------+ + + + + | Date | Type | Department | Care Team | Description | +--------+ + + + + | 05/13/ | Results | | Other, Faculty | | | 1998 | Only | | [phone] | | +--------+ + + + + [...] | + +---------+ + + | [facility] DEPARTMENT OF | | | | | RADIOLOGY | | | | + +---------+ + + documented in this encounter Visit Diagnoses Not on filedocumented in this encounter"
--- OUTSIDE RECORDS SUMMARY | ~2018-12-23 | XMS | Encounter Summary ---
Demographics + + + | Address | [address] | | | [place] [address] | + + + | Home Phone [...] [place], | | | | | [place] [address] | | + + + + + Care Team Providers + +------+ + | Care Road Freight Conductor Name | Role | Phone | + +------+ + PCP | Unavailable | + +------+ + Encounter Details +--------+ + + + + | Date | Type | Department | Care Team | Description | +--------+ + + + + | 09/28/ | Office | General Internal | Note, Outpatient | Progress Note | | 1994 | Visit-Trans | Medicine [address] | Clinic | | | | [place] | [address] | | | | | | Mailcode: [address] | | | | | | Outpatient Clinic | | | | | | [address] | | | | | | [place], [place] | | | | | | [address] | | | | | | [phone] | | | +--------+ + + + [...] as of this encounter Progress Notes Interface, Servicer Travel Trailers In - 06/01/2006 3:00 AM PDT CLINIC [...] in the Pain Clinic. Faisal Grijalva M.D. Biofuels Processing Technician, Neurology JSantana/ben documented in this encounter Plan of Treatment Not on filedocumented as of this encounter Visit Diagnoses Not on filedocumented in this encounter"
--- OUTSIDE RECORDS SUMMARY | ~2018-12-23 | XMS | Encounter Summary ---
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 Moreover, she says this is an important [...] myself or from any other provider at [facility]. She has violated our contract as set forth in a previous note. She understands this. Moreover, she understands that her chart will be flagged in the [facility] system so that she cannot receive [...]
--- OUTSIDE RECORDS SUMMARY | ~2018-12-23 | XMS | Encounter Summary ---
Demographics + + + | Address | [address] | | | [place] [address] | + + + | Home Phone [...] + + + | Author | [facility] | + + + | Organization | [facility] | + + + | Address | Unknown | + + + | Phone | Unavailable | + + + Support + + + + + | Name | Relationship | Address | Phone | + + + + + | Zaida Putnam | ECON | [address] | | | | | [place], | | | | | [place] [address] | | + + + + + Care Team Providers + +------+ + | Care Financial Investment Adviser Name | Role | Phone | + [...] as of this encounter Progress Notes Interface, Product Marketing Specialist In - 02/21/2006 3:06 AM PSTCLINIC DATE: [...] M.D. Resident, Internal Medicine Wallace Szymanski M.D. Mortgage Loan Closer, Internal Medicine TORI/niles d ocumented in this encounter Plan of Treatment Not on filedocumented as of this encounter Visit Diagnoses Not on filedocumented in this encounter"
--- OUTSIDE RECORDS SUMMARY | ~2018-12-23 | XMS | Encounter Summary ---
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 She has been five times and five [...] bowel sounds. No hepatosplenomegaly noted. Rectal deferred. KIESELGUHR REGENERATOR OPERATOR EXAMINATION: Deferred. EXTREMITIES: Clear of clubbing, cyanosis, [...] M.D. Resident, Internal Medicine Kaleb Velásquez M.D. Sap Gatherer, Medicine TORI/tesfaye cc: Wallace Szymanski M.D. Sap Gatherer, Internal Medicine Monroe Pruitt M.D. Sap Gatherer, Anesthesiology Director of Pain Management Center cc: documente d in this encounter Plan of Treatment Not on filedocumented as of this encounter Visit Diagnoses Not on filedocumented in this encounter
--- OUTSIDE RECORDS SUMMARY | ~2018-12-23 | XMS | Encounter Summary ---
Demographics + + + | Address | [address] | | | [place] [address] | + + + | Home Phone [...] [place], | | | | | [place] [address] | | + + + + + Care Team Providers + +------+ + | Care Numerical Control Nesting Operator Name | Role | Phone | + +------+ + PCP | Unavailable | + +------+ + Encounter Details +--------+ + + + + | Date | Type | Department | Care Team | Description | +--------+ + + + + | 07/24/ | Office | General Internal | Note, Outpatient | Progress Note | | 1996 | Visit-Trans | Medicine [address] | Clinic | | | | [place] | [address] | | | | | | Mailcode: [address] | | | | | | Outpatient Clinic | | | | | | [address] | | | | | | [place], [place] | | | | | | [address] | | | | | | [phone] | | | +--------+ + + + [...] as of this encounter Progress Notes Interface, Financial Aids Officer In - 06/05/2006 1:00 AM PDT CLINIC [...] remained quite high including continued attendance of mormon and working on hbaptf-okc-jelnz activities. She denies changes in bladder or [...] 2. Bladder dysfunction, resolved. John Mulligan M.D. Scrap Yard Worker, Anesthesiology Director, Pain Management Services PK:bony documented in this encounter Plan of Treatment Not on filedocumented as of this encounter Visit Diagnoses Not on filedocumented in this encounter"
--- OUTSIDE RECORDS SUMMARY | ~2018-12-23 | XMS | Encounter Summary ---
Demographics + + + | Address | [address] | | | [place] [address] | + + + | Home Phone [...] [place], | | | | | [place] [address] | | + + + + + Care Team Providers + +------+ + | Care Nuclear Plant Operator Name | Role | Phone | [...] as of this encounter Progress Notes Interface, Carburetor Mechanic In - 02/23/2006 5:02 AM PSTCLINIC DATE: [...] C: 01/10/1998 ds cc: Wallace Szymanski M.D. Loss Prevention Leader, Internal Medicine Hui Milton M.D. Resident, Internal Medicine 07 5:02 AM PSTdocumented in this encounter Plan of Treatment Not on filedocumented as of this encounter Visit Diagnoses Not on filedocumented in this encounter"
--- OUTSIDE RECORDS SUMMARY | ~2018-12-23 | XMS | Encounter Summary ---
Demographics + + + | Address | [address] | | | [place] [address] | + + + | Home Phone | | + + + | Preferred Language | Unknown | + + + | Marital Status | Single | + + + | Voodoo Affiliation | Unknown | + + + [...] [place], | | | | | [place] [address] | | + + + + + Care Team Providers + +------+ + | Care Policy Intern Name | Role | Phone | [...] as of this encounter Progress Notes Interface, Chartered Financial Analyst In - 02/21/2006 3:06 AM PSTCLINIC DATE: [...] M.D. Resident, Internal Medicine Wallace Szymanski M.D. Final Assembler Boat, Internal Medicine TORI/joshua d ocumented in this encounter Plan of Treatment Not on filedocumented as of this encounter Visit Diagnoses Not on filedocumented in this encounter"
--- OUTSIDE RECORDS SUMMARY | ~2018-12-23 | XMS | Encounter Summary ---
Demographics + + + | Address | [address] | | | [place] [address] | + + + | Home Phone [...] [place], | | | | | [place] [address] | | + + + + + Care Team Providers + +------+ + | Care Drapery Inspector Name | Role | Phone | [...] [id number] | | | | | | [place], [place] | | | | | | [address] | | | | | | [phone] | | | +--------+ + + + [...] OF | [address] | [place] [address] | | | PATHOLOGY | YOKASTA BUTCHER | | | + + + + + documented in this encounter Visit Diagnoses Not on filedocumented in this encounter"
--- OUTSIDE RECORDS SUMMARY | ~2018-12-23 | XMS | Encounter Summary ---
Demographics + + + | Address | [address] | | | [place] [address] | + + + | Home Phone [...] | + + + + + | Zadia Putnam | ECON | [address] | | | | | [place], | | | | | [place] [address] | | + + + + + Care Team Providers + +------+ + | Care Creative Writing Professor Name | Role | Phone | + [...] [id number] | | | | | | [place], [place] | | | | | | [address] | | | | | | [phone] | | | +--------+ + + + [...] | + + + + + | [facility] | [address] | [place] [address] | | | PATHOLOGY | [address] [...] | + + + + + | [facility] | [address] | [place] [address] | | | PATHOLOGY | [address] [...] | + + + + + | [facility] | [address] | [place] [address] | | | PATHOLOGY | [address] [...] | + + + + + | [facility] | [address] | [place] [address] | | | PATHOLOGY | [address] [...] | + + + + + | [facility] | [address] | [place] [address] | | | PATHOLOGY | [address] [...] | + + + + + | [facility] | [address] | [place] [address] | | | PATHOLOGY | [address] | | | + + + + + documented in this encounter Visit Diagnoses Not on filedocumented in this encounter"
--- OUTSIDE RECORDS SUMMARY | ~2018-12-23 | XMS | Encounter Summary ---
Demographics + + + | Address | [address] | | | [place] [address] | + + + | Home Phone [...] [place], | | | | | [place] [address] | | + + + + + Care Team Providers + +------+ + | Care Credit Negotiator Name | Role | Phone | + +------+ + PCP | Unavailable | + +------+ + Encounter Details +--------+ + + + + | Date | Type | Department | Care Team | Description | +--------+ + + + + | 09/26/ | Results | | Other, Faculty | | | 1993 | Only | | [phone] | | +--------+ + + + + [...]
--- OUTSIDE RECORDS SUMMARY | ~2018-12-23 | XMS | Encounter Summary ---
Demographics + + + | Address | [address] | | | [place] [address] | + + + | Home Phone | | + + + | Preferred Language | Unknown | + + + | Marital Status | Single | + + + | Restorationism Affiliation | Unknown | + + + [...] [place], | | | | | [place] [address] | | + + + + + Care Team Providers + +------+ + | Care Maxillofacial Surgeon Name | Role | Phone | + [...] as of this encounter Progress Notes Interface, Timber Framer In - 02/07/2006 1:09 AM PSTCLINIC DATE: [...] or throat itching. She has been taking kmzy-ufh-hfcjerr pseudoephedrine, but has not noted much relief. [...] Ms. Evans is planning to move to [place]. We will forward her records as soon [...]
--- OUTSIDE RECORDS SUMMARY | ~2018-12-23 | XMS | Encounter Summary ---
Demographics + + + | Address | [address] | | | [place] [address] | + + + | Home Phone [...] [place], | | | | | [place] [address] | | + + + + + Care Team Providers + +------+ + | Care Congressional Representative Name | Role | Phone | + [...] as of this encounter Progress Notes Interface, Field Operations Farm Manager In - 02/14/2006 5:12 AM PSTINIC DATE: 03/21/1998 INTERNAL MEDICINE CLINIC SUBJECTIVE: Ms. [place] comes in today for follow up of her chronic pain. She has been in a flare for the last two weeks, since her mother became ill after having a fall precipitating a fractured humerus. 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 Wallace Szymanski. Hui Milton M.D. [facility] Wallace Szymanski M.D. [facility] MS/hhk d ocumented in this encounter Plan of Treatment Not on filedocumented as of this encounter Visit Diagnoses Not on filedocumented in this encounter"
--- OUTSIDE RECORDS SUMMARY | ~2018-12-23 | XMS | Encounter Summary ---
Demographics + + + | Address | [address] | | | [place] [address] | + + + | Home Phone [...] [place], | | | | | [place] [address] | | + + + + + Care Team Providers + +------+ + | Care Colors Custodian Name | Role | Phone | + [...] as of this encounter Progress Notes Interface, Racking Technician In - 02/09/2006 5:05 AM PSTCLINIC DATE: [...]
--- OUTSIDE RECORDS SUMMARY | ~2018-12-23 | XMS | Encounter Summary ---
Demographics + + + | Address | [address] | | | [place] [address] | + + + | Home Phone [...] [place], | | | | | [place] [address] | | + + + + + Care Team Providers + +------+ + | Care Shotgun Shell Loading Machine Operator Name | Role | Phone [...] as of this encounter Progress Notes Interface, Fiber Optic Assembler In - 02/14/2006 5:12 AM PSTINIC DATE: 03/21/1998 INTERNAL MEDICINE CLINIC SUBJECTIVE: Ms. Evans comes in today for follow up of her chronic pain. She has been in a flare for the last two weeks, since her mother became ill after having a fall precipitating a fractured humerus. 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 Wallace Szymanski. Hui Milton M.D. [facility] Wallace Szymanski M.D. [facility] MS/hhk d ocumented in this encounter Plan of Treatment Not on filedocumented as of this encounter Visit Diagnoses Not on filedocumented in this encounter"
--- OUTSIDE RECORDS SUMMARY | ~2018-12-23 | XMS | Encounter Summary ---
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 She has been five times and five [...] bowel sounds. No hepatosplenomegaly noted. Rectal deferred. CRITICAL CARE NURSE EXAMINATION: Deferred. EXTREMITIES: Clear of clubbing, cyanosis, [...] M.D. Resident, Internal Medicine Kaleb Velásquez M.D. Buggy Ladle Tender, Medicine TORI/tesfaye cc: Wallace Szymanski M.D. Buggy Ladle Tender, Internal Medicine Monroe Pruitt M.D. Buggy Ladle Tender, Anesthesiology Director of Pain Management Center cc: documente d in this encounter Plan of Treatment Not on filedocumented as of this encounter Visit Diagnoses Not on filedocumented in this encounter
--- OUTSIDE RECORDS SUMMARY | ~2018-12-23 | XMS | Clinical Summary ---
Demographics + + + | Address | [address] | | | [place] [address] | + + + | Home Phone [...] + + | Author | [facility] | | | and [place] | + + + | Organization | [facility] | | | and [...] Team Providers + +------+ + | Care Emergency Medical Technician Basic Name | Role | Phone | + [...] +--------+ +---------+--------+ | MEDICARE | MEDICA | [id number] | 03/21/18 | [phone] | | Medica | | | RE | | 96-Pre | 5 | | re | | | PART A | | sent | | | | | | AND B | | | | | | + +--------+ +--------+ +---------+--------+ | MEDICAID [place] | MEDICA | [id number] | | [phone] | | Medica | [...] | 1956 | [phone] | [place] [address] | | | anastasiya | | | 7 (Home) | | + +--------+ +--------+ + + Advance Directives Patient has advance care planning documents, and code status on file. For more information, please contact:[facility] LILLI Smith [address] + + + + + | Code Status | Date | Date | Comments | | | Activated | Inactivated | | + + + + + | Full Code | 08/04/2016 | 08/07/2016 | | | | 18:08 | 15:02 | | + + + + +
--- OUTSIDE RECORDS SUMMARY | ~2018-12-23 | XMS | Encounter Summary ---
Demographics + + + | Address | [address] | | | [place] [address] | + + + | Home Phone [...] [place], | | | | | [place] [address] | | + + + + + Care Team Providers + +------+ + | Care Sql Report Analyst Name | Role | Phone | + +------+ + PCP | Unavailable | + +------+ + Encounter Details +--------+ + + + + | Date | Type | Department | Care Team | Description | +--------+ + + + + | 06/26/ | Office | General Internal | Note, Outpatient | Progress Note | | 1994 | Visit-Trans | Medicine [address] | Clinic | | | | [place] | [address] | | | | | | Mailcode: L475 | | | | | | Outpatient Clinic | | | | | | [address] | | | | | | [place], [place] | | | | | | [address] | | | | | | [phone] | | | +--------+ + + + [...] as of this encounter Progress Notes Interface, Plant Attendant In - 06/06/2006 5:07 AM PDT CLINIC [...] addition, she remains active in her local episcopalian and is in the process of moving [...] 2. Bladder dysfunction, resolved. John Mulligan M.D. [place], Anesthesiology Director, Pain Management Services HUI /efren A documented in this encounter Plan of Treatment Not on filedocumented as of this encounter Visit Diagnoses Not on filedocumented in this encounter"
--- OUTSIDE RECORDS SUMMARY | ~2018-12-23 | XMS | Encounter Summary ---
Demographics + + + | Address | [address] | | | [place] [address] | + + + | Home Phone | | + + + | Preferred Language | Unknown | + + + | Marital Status | Single | + + + | Protestant Affiliation | Unknown | + + + [...] [place], | | | | | [place] [address] | | + + + + + Care Team Providers + +------+ + | Care Brush And Broom Clipper Name | Role | Phone | + [...] as of this encounter Progress Notes Interface, Sociology Adjunct Instructor In - 02/23/2006 5:02 AM PSTCLINIC DATE: [...] M.D. Resident, Internal Medicine Wallace Szymanski M.D. Forestry Fire Aid, Internal Medicine TORI:mau d ocumented in this encounter Plan of Treatment Not on filedocumented as of this encounter Visit Diagnoses Not on filedocumented in this encounter
--- OUTSIDE RECORDS SUMMARY | ~2018-12-23 | XMS | Encounter Summary ---
Demographics + + + | Address | [address] | | | [place] [address] | + + + | Home Phone [...] [place], | | | | | [place] [address] | | + + + + + Care Team Providers + +------+ + | Care Transformer Builder Name | Role | Phone | [...] as of this encounter Progress Notes Interface, Live Truck Operator In - 02/28/2006 3:[address] [facility] Account No. PROGRESS RECORD Name Litzy [place] Birthdate 1955 Date Probl Time em FORMAT: PROBLEM NUMBER and TITLE: S=Subjective Number O=Objective A=Analysis P=Plans CLINIC DATE: 11/05/1997 November 05, 1997 OLEG PUGH MD [address] [facility] [address] RE: Litzy EVANS. MR#: [id number] : 51 [...] November with Dr. Kaleb Velásquez here at [facility]. Therefore, I will send you a copy of this letter, as well as Dr. Velásquez. Please allow me to briefly review Ms. Evans' history, as well as my evaluations, findings, and suggestions. Ms. Evans is a 42-year-old woman with a longstanding history of low back pain who had been previously treated at the [facility] prior to my arrival at [facility]. She states that she has had [...] tried a variety of medications including Tegretol, Half Moon, Amitriptyline, and other antidepressants. CURRENT MEDICATIONS: 1. 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 She smokes one pack of [...] also with some difficulty. Romberg is negative. Einshh-uatq-uqsjaz is normal. On examination of her chest [...] normal limits." IMPRESSION: 1. Fibromyalgia by 1990 [place] [employer] criteria. 2. Significant psychiatric [...] her care from Internal Medicine here at [facility], would be for her to see [...] establish care with Dr. Velásquez here at [facility], I would be happy to discuss her care with him at that point. In the meantime, I have nothing additional or specific to offer for Ms. [place]' care. Thank you very much for your referral of Ms. Evans to the Pain Management Center here at [facility]. If you have any questions or concerns, please do not hesitate to give me a call at [phone]. Monroe Pruitt M.D. Family Consumer Science Teacher, Anesthesiology Director of Pain Management Center BRS:mau cc: Kaleb Velásquez M.D. Family Consumer Science Teacher, Medicine Richie Her M.D. Family Consumer Science Teacher, Department of Orthopedics and Rehabilitation nterface, Live Truck Operator In - 02/28/2006 3:08 AM PSTCLINIC DATE: 11/05/97 PHONE CALL: Litzy called today requesting more Vicodin. She wanted it called to [facility]. I spoke with Dr. Her in regard to this and he declined the request. I called the patient at 16:15 and left a message to that effect. The phone number is [phone]. Lindsay Romeo R.N. Orthopedics HALLIE/emily P cc: documente d in this encounter Plan of Treatment Not on filedocumented as of this encounter Visit Diagnoses Not on filedocumented in this encounter
--- OUTSIDE RECORDS SUMMARY | ~2018-12-23 | XMS | Encounter Summary ---
Demographics + + + | Address | [address] | | | [place] [address] | + + + | Home Phone [...] [place], | | | | | [place] [address] | | + + + + + Care Team Providers + +------+ + | Care Control Clerk Head Name | Role | Phone | + +------+ + PCP | Unavailable | + +------+ + Encounter Details +--------+ + + + + | Date | Type | Department | Care Team | Description | +--------+ + + + + | 09/20/ | Office | General Internal | Note, Outpatient | Progress Note | | 1994 | Visit-Trans | Medicine [address] | Clinic | | | | [place] | [address] | | | | | | Mailcode: L475 | | | | | | Outpatient Clinic | | | | | | [address] | | | | | | [place], [place] | | | | | | [address] | | | | | | [phone] | | | +--------+ + + + [...] of this encounter Progress Notes Interface, Financial Supervisor In - 06/01/2006 3:00 AM PDT [...] Four months later, she was hospitalized at [facility] for 10 days at the recommendation [...] 1994. 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 Since that time, she has been on Social Security disability. Her boyfriend works in an auto shop that they bought several years ago. She has tried to work in the [employer] shop but is unable to tolerate it [...] Monroy M.D. Resident, Psychiatry Jamir Payan M.D. Swimming Pool Plasterer Helper, Psychiatry and occurred after her last divorce. [...] 1994. 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 Since that time, she has been on Social Security disability. Her boyfriend works in an auto shop that they bought several years ago. She has tried to work in the [employer] shop but is unable to tolerate it [...] interview carrying the recent article from the [facility] on OCD. She easily engages in the [...] RECOMMENDATIONS: 1. The patient will take the [place] Obsessive-Compulsive computerized test today. She was also [...] Monroy M.D. Resident, Psychiatry Jamir Payan M.D. Swimming Pool Plasterer Helper, Psychiatry Aaron:bnoy WOOD:bony C: 10/04/94 shubham documented in this encounter Plan of Treatment Not on filedocumented as of this encounter Visit Diagnoses Not on filedocumented in this encounter
--- OUTSIDE RECORDS SUMMARY | ~2018-12-23 | XMS | Encounter Summary ---
Demographics + + + | Address | [address] | | | [place] [address] | + + + | Home Phone [...] [place], | | | | | [place] [address] | | + + + + + Care Team Providers + +------+ + | Care It Generalist Name | Role | Phone | + +------+ + PCP | Unavailable | + +------+ + Encounter Details +--------+ + + + + | Date | Type | Department | Care Team | Description | +--------+ + + + + | 09/28/ | Office | General Internal | Note, Outpatient | Progress Note | | 1994 | Visit-Trans | Medicine [address] | Clinic | | | | [place] | [address] | | | | | | Mailcode: L475 | | | | | | Outpatient Clinic | | | | | | [address] | | | | | | [place], [place] | | | | | | [address] | | | | | | [phone] | | | +--------+ + + + [...] of this encounter Progress Notes Interface, Director Financial Services In - 06/01/2006 3:00 AM PDT CLINIC [...] in the Pain Clinic. Faisal Grijalva M.D. In Room Dining Server, Neurology JSantana/ben documented in this encounter Plan of Treatment Not on filedocumented as of this encounter Visit Diagnoses Not on filedocumented in this encounter"
--- OUTSIDE RECORDS SUMMARY | ~2018-12-23 | XMS | Encounter Summary ---
Demographics + + + | Address | [address] | | | [place] [address] | + + + | Home Phone [...] [place], | | | | | [place] [address] | | + + + + + Care Team Providers + +------+ + | Care Furnace Liner Name | Role | Phone | + [...] [id number] | | | | | | [place], [place] | | | | | | [address] | | | | | | [phone] | | | +--------+ + + + [...] | + + + + + | [facility] | [address] | [place] [address] | | | PATHOLOGY | [address] | | | + + + + + documented in this encounter Visit Diagnoses Not on filedocumented in this encounter"
--- OUTSIDE RECORDS SUMMARY | ~2018-12-23 | XMS | Encounter Summary ---
Demographics + + + | Address | [address] | | | [place] [address] | + + + | Home Phone [...] [place], | | | | | [place] [address] | | + + + + + Care Team Providers + +------+ + | Care Motor Scooter Repairer Name | Role | Phone | [...] as of this encounter Progress Notes Interface, General Labor In - 02/09/2006 5:05 AM PSTCLINIC DATE: [...] seeking drugs at numerous medical centers throughout [facility] and [facility]. 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 I contacted [facility] and [facility] in [place] (telephone # [phone] and [phone] respectively) to warn them of her potential misuse of medication. Moreover, I am concerned because she has a prescription for MS Contin in hand which she is supposed to fill for June and I wanted to make sure they knew to confiscate that prescription and not have it filled. Lastly, I have spoken with Nelly Hamilton, our clinical social media manager, who has taken the task in hand as far as alerting Social Security and Medicare of potential fraud. Hui Milton M.D. TORI/kiah cc: Doris Maurice [facility] Internal Medicine Miranda García [facility] Internal Medicine Andria Hamilton [facility] Internal Medicine Kait Oneal [facility] Wallace Szymanski M.D. [facility] Internal Medicine 5 :05 AM PSTdocumented in this encounter Plan of Treatment Not on filedocumented as of this encounter Visit Diagnoses Not on filedocumented in this encounter"
--- OUTSIDE RECORDS SUMMARY | ~2018-12-23 | XMS | Encounter Summary ---
Demographics + + + | Address | [address] | | | [place] [address] | + + + | Home Phone [...] [place], | | | | | [place] [address] | | + + + + + Care Team Providers + +------+ + | Care Produce Laborer Name | Role | Phone | [...] as of this encounter Progress Notes Interface, Geothermal Electrical Engineer In - 02/07/2006 1:09 AM PSTCLINIC DATE: [...] or throat itching. She has been taking kauj-grf-pxgchgu pseudoephedrine, but has not noted much relief. [...] Ms. Evans is planning to move to [place]. We will forward her records as soon [...]
--- OUTSIDE RECORDS SUMMARY | ~2018-12-23 | XMS | Encounter Summary ---
Demographics + + + | Address | [address] | | | [place] [address] | + + + | Home Phone [...] [place], | | | | | [place] [address] | | + + + + + Care Team Providers + +------+ + | Care Emergency Services Dispatcher Name | Role | Phone | [...] as of this encounter Progress Notes Interface, Foam Dispenser In - 02/23/2006 5:02 AM PSTCLINIC DATE: [...] M.D. Resident, Internal Medicine Wallace Szymanski M.D. Traffic Signal Technician, Internal Medicine TORI/JENAE/estrellita d ocumented in this encounter Plan of Treatment Not on filedocumented as of this encounter Visit Diagnoses Not on filedocumented in this encounter"
--- OUTSIDE RECORDS SUMMARY | ~2018-12-23 | XMS | Encounter Summary ---
Demographics + + + | Address | [address] | | | [place] [address] | + + + | Home Phone [...] [place], | | | | | [place] [address] | | + + + + + Care Team Providers + +------+ + | Care Commercial Plumber Name | Role | Phone | + [...] as of this encounter Progress Notes Interface, State Editor In - 02/23/2006 5:02 AM PSTCLINIC DATE: [...] M.D. Resident, Internal Medicine Wallace Szymanski M.D. Financial Sales Manager, Internal Medicine TORI/JENAE/estrellita d ocumented in this encounter Plan of Treatment Not on filedocumented as of this encounter Visit Diagnoses Not on filedocumented in this encounter"
--- OUTSIDE RECORDS SUMMARY | ~2018-12-23 | XMS | Encounter Summary ---
Demographics + + + | Address | [address] | | | [place] [address] | + + + | Home Phone | | + + + | Preferred Language | Unknown | + + + | Marital Status | Single | + + + | Yazdanism Affiliation | Unknown | + + + [...] [place], | | | | | [place] [address] | | + + + + + Care Team Providers + +------+ + | Care Medical Records Tech Name | Role | Phone | [...] as of this encounter Progress Notes Interface, Park Activities Coordinator In - 02/28/2006 3:08 AM PSTCLINIC DATE: [...] recently by a family medicine service in [place], [place]. 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 Richie Her M.D. Supervisor Plastics, Department of Orthopedics and Rehabilitation DANELLE/emily P documented in this encounter Plan of Treatment Not on filedocumented as of this encounter Visit Diagnoses Not on filedocumented in this encounter"
--- OUTSIDE RECORDS SUMMARY | ~2018-12-23 | XMS | Encounter Summary ---
Demographics + + + | Address | [address] | | | [place] [address] | + + + | Home Phone [...] [place], | | | | | [place] [address] | | + + + + + Care Team Providers + +------+ + | Care Forensic Pathologist Name | Role | Phone | + [...] Rd | | | | | | [place] | | | | | | [address] | | | +--------+ + + + [...] as of this encounter Progress Notes Interface, Certified Nurse Aide In - 06/14/2006 5:08 AM PDT [address] [address] [facility] January 08, 1994 DARYL ELLIS PH D ANSWERER MEDICAL PSYCHOLOGY [address] [address] RE:Litzy [place] MR:[id number] Ellis: Thank [...] any further information. Sincerely, Faisal Grijalva M.D. Face Cleaner, Neurology PIYUSH:sailaja January 09[birth year] 1994 documented in this encounter Plan of Treatment Not on filedocumented as of this encounter Visit Diagnoses Not on filedocumented in this encounter"
--- OUTSIDE RECORDS SUMMARY | ~2018-12-23 | XMS | Encounter Summary ---
Demographics + + + | Address | [address] | | | [place] [address] | + + + | Home Phone [...] [place], | | | | | [place] [address] | | + + + + + Care Team Providers + +------+ + | Care Preschool Teacher Assistant Name | Role | Phone | [...] as of this encounter Progress Notes Interface, User Experience Researcher In - 02/14/2006 5:12 AM PSTCLINIC DATE: [...]
--- OUTSIDE RECORDS SUMMARY | ~2018-12-23 | XMS | Encounter Summary ---
Demographics + + + | Address | [address] | | | [place] [address] | + + + | Home Phone [...] [place], | | | | | [place] [address] | | + + + + + Care Team Providers + +------+ + | Care Night Guard Name | Role | Phone | + [...] as of this encounter Progress Notes Interface, Chief Ultrasound Technologist In - 02/09/2006 5:05 AM PSTCLINIC DATE: [...]
--- OUTSIDE RECORDS SUMMARY | ~2018-12-23 | XMS | Encounter Summary ---
Demographics + + + | Address | [address] | | | [place] [address] | + + + | Home Phone [...] [place], | | | | | [place] [address] | | + + + + + Care Team Providers + +------+ + | Care Manager Speech Name | Role | Phone | + +------+ + PCP | Unavailable | + +------+ + Encounter Details +--------+ + + + + | Date | Type | Department | Care Team | Description | +--------+ + + + + | 04/11/ | Office | UNKNOWN DEPARTMENT | Note, Outpatient | Progress Note | | 1994 | Visit-Trans | [address] [facility] | Clinic | | | | [place] | [address] | | | | | | [place], [place] | | | | | | [address] | | | +--------+ + + + [...] as of this encounter Progress Notes Interface, Cargo And Container Inspector In - 06/11/2006 5:10 AM PDT CLINIC DATE: 04/11/94 NEUROLOGY CLINIC: Litzy returns for follow-up of her chronic pain syndrome. Since our last visit, I have had the opportunity to review an lumbosacral (LS) spine magnetic resonance imaging (MRI) performed at an outside hospital and dated 05/06/93. This was performed at [facility]. It was a good quality study and [...] Follow-up in Pain Clinic. Faisal Grijalva M.D. Registered Associate, Neurology FELIZ:manuel documented in this encounter Plan of Treatment Not on filedocumented as of this encounter Visit Diagnoses Not on filedocumented in this encounter
--- OUTSIDE RECORDS SUMMARY | ~2018-12-23 | XMS | Encounter Summary ---
Demographics + + + | Address | [address] | | | [place] [address] | + + + | Home Phone [...] [place], | | | | | [place] [address] | | + + + + + Care Team Providers + +------+ + | Care Bottom Wheeler Name | Role | Phone | + [...] as of this encounter Progress Notes Interface, Violin Tutor In - 02/21/2006 3:06 AM PSTCLINIC DATE: [...] M.D. Resident, Internal Medicine Wallace Szymanski M.D. Engineer Third Assistant, Internal Medicine TORI/joshua d ocumented in this encounter Plan of Treatment Not on filedocumented as of this encounter Visit Diagnoses Not on filedocumented in this encounter"
--- OUTSIDE RECORDS SUMMARY | ~2018-12-23 | XMS | Encounter Summary ---
Demographics + + + | Address | [address] | | | [place] [address] | + + + | Home Phone [...] [place], | | | | | [place] [address] | | + + + + + Care Team Providers + +------+ + | Care Anesthesiology Faculty Name | Role | Phone | + [...] as of this encounter Progress Notes Interface, Cctv Technician In - 02/09/2006 5:05 AM PSTCLINIC [...] seeking drugs at numerous medical centers throughout [facility] and [facility]. 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 I contacted [facility] and [facility] in [place] (telephone # [phone] and [phone] respectively) to warn them of her potential misuse of medication. Moreover, I am concerned because she has a prescription for MS Contin in hand which she is supposed to fill for June and I wanted to make sure they knew to confiscate that prescription and not have it filled. Lastly, I have spoken with Nelly Hamilton, our clinical manager social, who has taken the task in hand as far as alerting Social Security and Medicare of potential fraud. Hui Milton M.D. TORI/kiah cc: Doris Maurice [facility] Internal Medicine Miranda García [facility] Internal Medicine Andria Hamilton [facility] Internal Medicine Kait One[facility] Wallace Szymanski M.D. [facility] Internal Medicine 5 :05 AM PSTdocumented in this encounter Plan of Treatment Not on filedocumented as of this encounter Visit Diagnoses Not on filedocumented in this encounter"
--- OUTSIDE RECORDS SUMMARY | ~2018-12-23 | XMS | Encounter Summary ---
Demographics + + + | Address | [address] | | | [place] [address] | + + + | Home Phone [...] [place], | | | | | [place] [address] | | + + + + + Care Team Providers + +------+ + | Care Manager Of Application Development Name | Role | Phone | + +------+ + PCP | Unavailable | + +------+ + Encounter Details +--------+ + + + + | Date | Type | Department | Care Team | Description | +--------+ + + + + | 01/01/ | Office | UNKNOWN DEPARTMENT | Note, Outpatient | Progress Note | | 1993 | Visit-Trans | [address] [facility] | Clinic | | | | [place] | [address] | | | | | | [place], [place] | | | | | | [address] | | | +--------+ + + + [...] as of this encounter Progress Notes Interface, Repair Supervisor In - 06/14/2006 5:08 AM PDT CLINIC [...] Return to clinic after the above studies. Fiasal Grijalva M.D. Dumpster Operator, Neurology JQ:bony cc: DICK ACOSTA MD [address] [address] documented in this encounter Plan of Treatment Not on filedocumented as of this encounter Visit Diagnoses Not on filedocumented in this encounter"
--- OUTSIDE RECORDS SUMMARY | ~2018-12-23 | XMS | Encounter Summary ---
Demographics + + + | Address | [address] | | | [place] [address] | + + + | Home Phone [...] [place], | | | | | [place] [address] | | + + + + + Care Team Providers + +------+ + | Care Locomotive Firer/Fireman Name | Role | Phone | + [...]
--- OUTSIDE RECORDS SUMMARY | ~2018-12-23 | XMS | Encounter Summary ---
Demographics + + + | Address | [address] | | | [place] [address] | + + + | Home Phone [...] [place], | | | | | [place] [address] | | + + + + + Care Team Providers + +------+ + | Care Loan Analyst Name | Role | Phone | [...] as of this encounter Progress Notes Interface, Capacitor Tester In - 02/23/2006 5:02 AM PSTCLINIC DATE: [...] C: 01/10/1998 ds cc: Wallace Szymanski M.D. Territory Account Executive, Internal Medicine Hui Milton M.D. Resident, Internal Medicine 07 5:02 AM PSTdocumented in this encounter Plan of Treatment Not on filedocumented as of this encounter Visit Diagnoses Not on filedocumented in this encounter"
--- OUTSIDE RECORDS SUMMARY | ~2018-12-23 | XMS | Encounter Summary ---
Demographics + + + | Address | [address] | | | [place] [address] | + + + | Home Phone [...] [place], | | | | | [place] [address] | | + + + + + Care Team Providers + +------+ + | Care Sap Pi Developer Name | Role | Phone | [...] as of this encounter Progress Notes Interface, Candy Rolling Machine Operator In - 02/23/2006 5:02 AM [...] years ago when she read about an [facility] clinic, and presented by self-referral to the [...] medication in September when she moved from [place] to [place] and switched providers. Patient states that since [...] Patient was seen by Dr. Browning in [place], [place], at which time she was given [...] Recommended group therapy. Patient is covered through [facility] and she will investigate possible group therapy at the [facility] system. Patient was seen and interviewed with Dr. Anabelle Garcia. Frederic Koch M.D. Resident, Internal Medicine Anabelle Garcia M.D. Head Of Commission Department, Psychiatry ELDA/ruby d ocumented in this encounter Plan of Treatment Not on filedocumented as of this encounter Visit Diagnoses Not on filedocumented in this encounter"
--- OUTSIDE RECORDS SUMMARY | ~2018-12-23 | XMS | Encounter Summary ---
Demographics + + + | Address | [address] | | | [place] [address] | + + + | Home Phone [...] [place], | | | | | [place] [address] | | + + + + + Care Team Providers + +------+ + | Care House Visitor Name | Role | Phone | + [...] Rd | | | | | | [place] | | | | | | [address] | | | +--------+ + + + [...] as of this encounter Progress Notes Interface, Rail Signal Mechanic In - 06/14/2006 5:08 AM PDT [address] [address] [facility] December 25, 1993 LEILANI ACOSTA MD [address] [place] [id number] RE:Litzy [place] MR#:[id number] Acosta: Thank you for referring Litzy Evans to the [facility] Neurology [facility] for evaluation. I found [...] your kind referral. Sincerely, Faisal Grijalva M.D. Social Media Marketer, Neurology JFQ/mrd December 26, 1993 documented in this encounter Plan of Treatment Not on filedocumented as of this encounter Visit Diagnoses Not on filedocumented in this encounter"
--- OUTSIDE RECORDS SUMMARY | ~2018-12-23 | XMS | Encounter Summary ---
Demographics + + + | Address | [address] | | | [place] [address] | + + + | Home Phone [...] [place], | | | | | [place] [address] | | + + + + + Care Team Providers + +------+ + | Care Radiologic Technologist Chief Name | Role | Phone | [...] as of this encounter Progress Notes Interface, Optical Instrument Assembly Supervisor In - 02/21/2006 3:06 AM PSTCLINIC [...] M.D. Resident, Internal Medicine Wallace Szymanski M.D. Aircraft Mechanic Armament, Internal Medicine TORI/joshua d ocumented in this encounter Plan of Treatment Not on filedocumented as of this encounter Visit Diagnoses Not on filedocumented in this encounter"
--- OUTSIDE RECORDS SUMMARY | ~2018-12-23 | XMS | Encounter Summary ---
Demographics + + + | Address | [address] | | | [place] [address] | + + + | Home Phone [...] [place], | | | | | [place] [address] | | + + + + + Care Team Providers + +------+ + | Care Licensed Electrician Name | Role | Phone | + [...]
--- OUTSIDE RECORDS SUMMARY | ~2018-12-23 | XMS | Encounter Summary ---
Demographics + + + | Address | [address] | | | [place] [address] | + + + | Home Phone [...] [place], | | | | | [place] [address] | | + + + + + Care Team Providers + +------+ + | Care Tank Processor Name | Role | Phone | + [...] as of this encounter Progress Notes Interface, Cripple Chaser In - 02/23/2006 5:02 AM PSTCLINIC DATE: [...] M.D. Resident, Internal Medicine Wallace Szymanski M.D. Element Burner, Internal Medicine TORI/JENAE/estrellita d ocumented in this encounter Plan of Treatment Not on filedocumented as of this encounter Visit Diagnoses Not on filedocumented in this encounter"
--- OUTSIDE RECORDS SUMMARY | ~2018-12-23 | XMS | Encounter Summary ---
Demographics + + + | Address | [address] | | | [place] [address] | + + + | Home Phone [...] [place], | | | | | [place] [address] | | + + + + + Care Team Providers + +------+ + | Care Train Reservation Clerk Name | Role | Phone | [...] as of this encounter Progress Notes Interface, Storekeeper Engineering In - 02/28/2006 3:08 AM PST [facility] Account No. PROGRESS RECORD Name Litzy Evans Birthdate 1955 Date Probl Time em FORMAT: PROBLEM NUMBER and TITLE: S=Subjective Number O=Objective A=Analysis P=Plans CLINIC DATE: 11/05/1997 November 05, 1997 OLEG PUGH MD [address] [facility] [address] RE: Litzy EVANS. MR#: [id number] : 51 [...] November with Dr. Kaleb Velásquez here at [facility]. Therefore, I will send you a copy of this letter, as well as Dr. Velásquez. Please allow me to briefly review Ms. Evans' history, as well as my evaluations, findings, and suggestions. Ms. Evans is a 42-year-old woman with a longstanding history of low back pain who had been previously [facility] prior to my arrival at [facility]. She states that she has had [...] tried a variety of medications including Tegretol, [place], Amitriptyline, and other antidepressants. CURRENT MEDICATIONS: 1. 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 She smokes one pack of cigarettes [...] also with some difficulty. Romberg is negative. Eycpkf-eoue-txwxiy is normal. On examination of her chest [...] normal limits." IMPRESSION: 1. Fibromyalgia by 1990 [employer] criteria. 2. Significant psychiatric [...] her care from Internal Medicine here at [facility], would be for her to see [...] establish care with Dr. Velásquez here at [facility], I would be happy to discuss her care with him at that point. In the meantime, I have nothing additional or specific to offer for Ms. Evans' care. Thank you very much for your referral of Ms. Evans to the [facility] here at [facility]. If you have any questions or concerns, please do not hesitate to give me a call at [phone]. Monroe Pruitt M.D. Director Dermatology, Anesthesiology Director of [facility] Management Center BRS:mau cc: Kaleb Velásquez M.D. Director Dermatology, Medicine Richie Her M.D. Director Dermatology, Department of Orthopedics and Rehabilitation nterface, Storekeeper Engineering In - 02/28/2006 3:08 AM PSTCLINIC DATE: 11/05/97 PHONE CALL: Litzy called today requesting more Vicodin. She wanted it called to [facility]. I spoke with Dr. Her in regard to this and he declined the request. I called the patient at 16:15 and left a message to that effect. The phone number is [phone]. Lindsay Romeo R.N. Orthopedics HALLIE/emily P cc: documente d in this encounter Plan of Treatment Not on filedocumented as of this encounter Visit Diagnoses Not on filedocumented in this encounter
--- OUTSIDE RECORDS SUMMARY | ~2018-12-23 | XMS | Encounter Summary ---
Demographics + + + | Address | [address] | | | [place] [address] | + + + | Home Phone [...] [place], | | | | | [place] [address] | | + + + + + Care Team Providers + +------+ + | Care Bearing Machine Operator Name | Role | Phone [...] Rd | | | | | | [place], [place] | | | | | | [address] | | | +--------+ + + + [...] of this encounter Progress Notes Interface, Computer Assembler In - 06/14/2006 5:08 AM PDT CLINIC [...] drink alcohol. 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 She is , currently living with a boyfriend/roommate in [place]. She is subsisting on Welfare, she has [...] management of somatization disorder. Faisal Grijalva M.D. Live In Housekeeper, Neurology PIYUSH/ifrah cc: LEILANI ACOSTA MD [address] [place] [id number] documented in this encounter Plan of Treatment Not on filedocumented as of this encounter Visit Diagnoses Not on filedocumented in this encounter
--- OUTSIDE RECORDS SUMMARY | ~2018-12-23 | XMS | Encounter Summary ---
Demographics + + + | Address | [address] | | | [place] [address] | + + + | Home Phone [...] [place], | | | | | [place] [address] | | + + + + + Care Team Providers + +------+ + | Care Graphic Specialist Name | Role | Phone | + +------+ + PCP | Unavailable | + +------+ + Encounter Details +--------+ + + + + | Date | Type | Department | Care Team | Description | +--------+ + + + + | 05/13/ | Results | | Other, Faculty | | | 1998 | Only | | [phone] | | +--------+ + + + + [...] | | + +---------+ + + | [facility] DEPARTMENT OF | | | | | RADIOLOGY | | | | + +---------+ + + documented in this encounter Visit Diagnoses Not on filedocumented in this encounter"
--- OUTSIDE RECORDS SUMMARY | ~2018-12-23 | XMS | Encounter Summary ---
Demographics + + + | Address | [address] | | | [place] [address] | + + + | Home Phone [...] [place], | | | | | [place] [address] | | + + + + + Care Team Providers + +------+ + | Care Thrill Performer Name | Role | Phone | + [...] CAR[place] | | | | | [address] | [place], [place] | | | | | Vernell Correa Mailcode: | [id number] | | | | | [id number] Outpatient | [phone] | | | | | Clinic Building | | | | | | [place], [place] | | | | | | [address] | | | | | | [phone] | | | +--------+ + + + [...] | | + +---------+ + + | [facility] DEPARTMENT | | | | | RADIOLOGY | | | | + +---------+ + + documented in this encounter Visit Diagnoses Not on filedocumented in this encounter"
--- OUTSIDE RECORDS SUMMARY | ~2018-12-23 | XMS | Encounter Summary ---
Demographics + + + | Address | [address] | | | [place] [address] | + + + | Home Phone [...] [place], | | | | | [place] [address] | | + + + + + Care Team Providers + +------+ + | Care Roller Coaster Operator Name | Role | Phone | [...]
--- OUTSIDE RECORDS SUMMARY | ~2018-12-23 | XMS | Encounter Summary ---
Demographics + + + | Address | [address] | | | [place] [address] | + + + | Home Phone [...] [place], | | | | | [place] [address] | | + + + + + [...] | | 1993 | Visit-Trans | [address] [facility] | Clinic | | | | [place] | [address] | | | | | | [place], [place] | | | | | | [address] | | | +--------+ + + + [...] as of this encounter Progress Notes Interface, Quantity Surveyor In - 06/14/2006 5:08 AM PDT CLINIC [...] after the above studies. Faisal Grijalva M.D. Drafter Geophysical, Neurology JQ:bony cc: DICK ACOSTA MD [address] [address] documented in this encounter Plan of Treatment Not on filedocumented as of this encounter Visit Diagnoses Not on filedocumented in this encounter"
--- OUTSIDE RECORDS SUMMARY | ~2018-12-23 | XMS | Encounter Summary ---
Demographics + + + | Address | [address] | | | [place] [address] | + + + | Home Phone [...] [place], | | | | | [place] [address] | | + + + + + Care Team Providers + +------+ + | Care Rn Psychiatric Name | Role | Phone | + +------+ + PCP | Unavailable | + +------+ + Encounter Details +--------+ + + + + | Date | Type | Department | Care Team | Description | +--------+ + + + + | 04/11/ | Office | UNKNOWN DEPARTMENT | Note, Outpatient | Progress Note | | 1994 | Visit-Trans | [address] [facility] | Clinic | | | | [place] | [address] | | | | | | [place], [place] | | | | | | [address] | | | +--------+ + + + [...] as of this encounter Progress Notes Interface, Streets And Buildings Decorator In - 06/11/2006 5:10 AM PDT CLINIC DATE: 04/11/94 NEUROLOGY CLINIC: Litzy returns for follow-up of her chronic pain syndrome. Since our last visit, I have had the opportunity to review an lumbosacral (LS) spine magnetic resonance imaging (MRI) performed at an outside hospital and dated 05/06/93. This was performed at [facility]. It was a good quality study [...] Follow-up in Pain Clinic. Faisal Grijalva M.D. Refrigerator Tester, Neurology FELIZ:manuel documented in this encounter Plan of Treatment Not on filedocumented as of this encounter Visit Diagnoses Not on filedocumented in this encounter
--- OUTSIDE RECORDS SUMMARY | ~2018-12-23 | XMS | Encounter Summary ---
Demographics + + + | Address | [address] | | | [place] [address] | + + + | Home Phone [...] [place], | | | | | [place] [address] | | + + + + + Care Team Providers + +------+ + | Care Header Operator Name | Role | Phone | [...] [id number] | | | | | | [place], [place] | | | | | | [address] | | | | | | [phone] | | | +--------+ + + + [...] + + + + + | [facility] | [address] | [place] [address] | | | PATHOLOGY | [address] | | | + + + + + documented in this encounter Visit Diagnoses Not on filedocumented in this encounter"
--- OUTSIDE RECORDS SUMMARY | ~2018-12-23 | XMS | Encounter Summary ---
Demographics + + + | Address | [address] | | | [place] [address] | + + + | Home Phone [...] [place], | | | | | [place] [address] | | + + + + + Care Team Providers + +------+ + | Care Dock Boss Name | Role | Phone | + +------+ + PCP | Unavailable | + +------+ + Encounter Details +--------+ + + + + | Date | Type | Department | Care Team | Description | +--------+ + + + + | 01/01/ | Office | UNKNOWN DEPARTMENT | Note, Outpatient | Progress Note | | 1993 | Visit-Trans | [address] [facility] | Clinic | | | | [place] | [address] | | | | | | [place], [place] | | | | | | [address] | | | +--------+ + + + [...] as of this encounter Progress Notes Interface, Hospital Insurance Representative In - 06/14/2006 5:08 AM PDT CLINIC [...] after the above studies. Faisal Grijalva M.D. Lifeline Representatives, Neurology JQ:bony cc: DICK ACOSTA MD [address] [address] documented in this encounter Plan of Treatment Not on filedocumented as of this encounter Visit Diagnoses Not on filedocumented in this encounter"
--- OUTSIDE RECORDS SUMMARY | ~2018-12-23 | XMS | Encounter Summary ---
Demographics + + + | Address | [address] | | | [place] [address] | + + + | Home Phone [...] [place], | | | | | [place] [address] | | + + + + + Care Team Providers + +------+ + | Care Web Mobile Designer Name | Role | Phone | + +------+ + PCP | Unavailable | + +------+ + Encounter Details +--------+ + + + + | Date | Type | Department | Care Team | Description | +--------+ + + + + | 06/26/ | Office | General Internal | Note, Outpatient | Progress Note | | 1994 | Visit-Trans | Medicine [address] | Clinic | | | | [place] | [address] | | | | | | Mailcode: [id number] | | | | | | Outpatient Clinic | | | | | | [address] | | | | | | [place], [place] | | | | | | [address] | | | | | | [phone] | | | +--------+ + + + [...] as of this encounter Progress Notes Interface, Geophysical Prospecting Permit Agent In - 06/06/2006 5:07 AM PDT CLINIC [...] addition, she remains active in her local tenriism and is in the process of moving [...] 2. Bladder dysfunction, resolved. John Mulligan M.D. Geographic Information Scientist, Anesthesiology Director, Pain Management Services HUI /efren A documented in this encounter Plan of Treatment Not on filedocumented as of this encounter Visit Diagnoses Not on filedocumented in this encounter"
--- OUTSIDE RECORDS SUMMARY | ~2018-12-23 | XMS | Encounter Summary ---
Demographics + + + | Address | [address] | | | [place] [address] | + + + | Home Phone [...] [place], | | | | | [place] [address] | | + + + + + Care Team Providers + +------+ + | Care Cemetery Vault Installer Name | Role | Phone | [...] CARLOS Valdez | | | | | [address] | [place], [place] | | | | | Vernell Correa Mailcode: | [id number] | | | | | [id number] Outpatient | [phone] | | | | | Clinic Building | | | | | | [place], [place] | | | | | | [address] | | | | | | [phone] | | | +--------+ + + + [...] | | + +---------+ + + | [facility] DEPARTMENT | | | | | RADIOLOGY | | | | + +---------+ + + documented in this encounter Visit Diagnoses Not on filedocumented in this encounter"
--- OUTSIDE RECORDS SUMMARY | ~2018-12-23 | XMS | Encounter Summary ---
Demographics + + + | Address | [address] | | | [place] [address] | + + + | Home Phone [...] [place], | | | | | [place] [address] | | + + + + + Care Team Providers + +------+ + | Care Heel Top Lift Splitter Name | Role | Phone | + [...] as of this encounter Progress Notes Interface, Science Faculty Member In - 02/14/2006 5:12 AM PSTINIC DATE: 03/21/1998 [facility] CLINIC SUBJECTIVE: Ms. Evans comes in today for follow up of her chronic pain. She has been in a flare for the last two weeks, since her mother became ill after having a fall precipitating a fractured humerus. 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 Wallace Szymanski. Hui Milton M.D. [facility] Wallace Szymanski M.D. [facility] MS/hhk d ocumented in this encounter Plan of Treatment Not on filedocumented as of this encounter Visit Diagnoses Not on filedocumented in this encounter"
--- OUTSIDE RECORDS SUMMARY | ~2018-12-23 | XMS | Encounter Summary ---
Demographics + + + | Address | [address] | | | [place] [address] | + + + | Home Phone [...] [place], | | | | | [place] [address] | | + + + + + Care Team Providers + +------+ + | Care Mainspring Former Name | Role | Phone | + [...] Rd | | | | | | [place], [place] | | | | | | [address] | | | +--------+ + + + [...] as of this encounter Progress Notes Interface, Patient Representative In - 06/14/2006 5:08 AM PDT [...] after the above studies. Faisal Grijalva M.D. Digital Media Representative, Neurology JQ:bony cc: DICK ACOSTA MD [address] [address] documented in this encounter Plan of Treatment Not on filedocumented as of this encounter Visit Diagnoses Not on filedocumented in this encounter"
--- OUTSIDE RECORDS SUMMARY | ~2018-12-23 | XMS | Encounter Summary ---
Demographics + + + | Address | [address] | | | [place] [address] | + + + | Home Phone [...] [place], | | | | | [place] [address] | | + + + + + Care Team Providers + +------+ + | Care Electrical Electronics Engineers Name | Role | Phone | + [...] as of this encounter Progress Notes Interface, Social Media Specialist In - 02/23/2006 5:02 AM PSTCLINIC [...] C: 01/10/1998 ds cc: Wallace Szymanski M.D. Licensed Tax Consultant, Internal Medicine Hui Milton M.D. Resident, Internal Medicine 07 5:02 AM PSTdocumented in this encounter Plan of Treatment Not on filedocumented as of this encounter Visit Diagnoses Not on filedocumented in this encounter"
--- OUTSIDE RECORDS SUMMARY | ~2018-12-23 | XMS | Encounter Summary ---
Demographics + + + | Address | [address] | | | [place] [address] | + + + | Home Phone [...] [place], | | | | | [place] [address] | | + + + + + Care Team Providers + +------+ + | Care Artificial Flowers Supervisor Name | Role | Phone | [...] of this encounter Progress Notes Interface, Electric Golf Cart Repairer In - 02/28/2006 3:08 AM [facility] [place] [address] [address], [place] [address] or November 05, 1997 OLEG PUGH MD [address] [facility] [address] RE: LITZY EVANS MR#: [id number] Pugh: I had the pleasure of seeing your patient, Ms. Litzy Evans, at the [facility] today for evaluation of her chronic pain problem. Ms. Evans tells me that she has moved to [place] within the last week and plans to establish care in the month of November with Dr. Kaleb Velásquez here at [facility]. Therefore, I will send [...] Management Center prior to my arrival at [facility]. She states that she [...] tried a variety of medications including Tegretol, [place], Amitriptyline, and other antidepressants. CURRENT MEDICATIONS: 1. [...] has recently ended. She has moved to [place] and is now living with an ex-'s mother. 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 She smokes one pack of cigarettes [...] also with some difficulty. Romberg is negative. Jazprr-djfy-vmqbxv is normal. On examination of her chest [...] normal limits." IMPRESSION: 1. Fibromyalgia by 1990 [place] [employer] criteria. 2. Significant psychiatric [...] her care from Internal Medicine here at [facility], would be for her [...] the 1995 intractable pain act here in [place]. I agreed with Ms. Evans that should she establish care with Dr. Velásquez here at [facility], I would be happy to discuss her care with him at that point. In the meantime, I have nothing additional or specific to offer for Ms. Evans' care. Thank you very much for your referral of Ms. Evans to the [facility] Management Center here at [facility]. If you have any questions or concerns, please do not hesitate to give me a call at [phone]. Monroe Pruitt M.D. Client Services Specialist, Anesthesiology Director of Pain Management Center BRS:mau cc: Kaleb Velásquez M.D. Client Services Specialist, Medicine Richie Her, M.D. Client Services Specialist, Department of Orthopedics and Rehabilitation Kaleb Velásquez M.D. Client Services Specialist, Medicine Richie Her M.D. Client Services Specialist, Department of Orthopedics and Rehabilitation documented in this encounter Plan of Treatment Not on filedocumented as of this encounter Visit Diagnoses Not on filedocumented in this encounter
--- OUTSIDE RECORDS SUMMARY | ~2018-12-23 | XMS | Encounter Summary ---
Demographics + + + | Address | [address] | | | [place] [address] | + + + | Home Phone [...] [place], | | | | | [place] [address] | | + + + + + Care Team Providers + +------+ + | Care Talent Buyer Name | Role | Phone | [...] Rd | | | | | | [place] | | | | | | [address] | | | +--------+ + + + [...] as of this encounter Progress Notes Interface, Electronic Integrated Systems Mechanic In - 06/14/2006 5:08 AM PDT [address] [address] [facility] December 25, 1993 LEILANI ACOSTA MD [address] [place] [id number] RE:Litzy Evans MR#:[id number] Acosta: Thank you for referring Litzy Evans to the [facility] Neurology Clinic for evaluation. I found [...] your kind referral. Sincerely, Faisal Grijalva M.D. Distribution Driver, Neurology JFQ/mrd December 26, 1993 documented in this encounter Plan of Treatment Not on filedocumented as of this encounter Visit Diagnoses Not on filedocumented in this encounter"
--- OUTSIDE RECORDS SUMMARY | ~2018-12-23 | XMS | Encounter Summary ---
Demographics + + + | Address | [address] | | | [place] [address] | + + + | Home Phone [...] [place], | | | | | [place] [address] | | + + + + + Care Team Providers + +------+ + | Care Shrinker Name | Role | Phone | + [...] Rd | | | | | | [place] | | | | | | [address] | | | +--------+ + + + [...] of this encounter Progress Notes Interface, Fork Truck Driver In - 06/14/2006 5:08 AM PDT [address] [address] [facility] January 08, 1994 DARYL ELLIS PH D [facility] [address] [address] RE:Litzy Evans MR:[id number] Ellis: Thank [...] any further information. Sincerely, Faisal Grijalva M.D. Drier Operator Helper, Neurology PIYUSH:sailaja January 09, 1994 documented in this encounter Plan of Treatment Not on filedocumented as of this encounter Visit Diagnoses Not on filedocumented in this encounter"
--- OUTSIDE RECORDS SUMMARY | ~2018-12-23 | XMS | Clinical Summary ---
Demographics + + + | Address | [address] | | | [place] [address] | + + + | Home Phone [...] [place], | | | | | [place] [address] | | + + + + + Care Team Providers + +------+ + | Care Utility Arborist Name | Role | Phone | + +------+ + PCP | Unavailable | + +------+ + Source Comments MARY is fully live on both [facility] Ambulatory and [facility] InPatient.[facility] Allergies Not on File Medications Not on [...]
--- OUTSIDE RECORDS SUMMARY | ~2018-12-23 | XMS | Encounter Summary ---
Demographics + + + | Address | [address] | | | [place] [address] | + + + | Home Phone [...] [place], | | | | | [place] [address] | | + + + + + Care Team Providers + +------+ + | Care Staffing Operations Manager Name | Role | Phone | [...] Rd | | | | | | [place] | | | | | | [address] | | | +--------+ + + + [...] as of this encounter Progress Notes Interface, Syrup Mixer Helper In - 06/14/2006 5:08 AM PDT [address] [address] [facility] December 25, 1993 LEILANI ACOSTA MD [address] [place] [address] RE:Litzy Evans MR#:[id number] Acosta: Thank you for referring Litzy Evans to the [facility] Neurology Clinic for evaluation. I found [...] your kind referral. Sincerely, Faisal Grijalva M.D. Operations Superintendent, Neurology JFQ/mrd December 26, 1993 documented in this encounter Plan of Treatment Not on filedocumented as of this encounter Visit Diagnoses Not on filedocumented in this encounter"
--- OUTSIDE RECORDS SUMMARY | ~2018-12-23 | XMS | Encounter Summary ---
Demographics + + + | Address | [address] | | | [place] [address] | + + + | Home Phone [...] [place], | | | | | [place] [address] | | + + + + + Care Team Providers + +------+ + | Care General Magistrate Name | Role | Phone | + [...]
--- OUTSIDE RECORDS SUMMARY | ~2018-12-23 | XMS | Encounter Summary ---
Demographics + + + | Address | [address] | | | [place] [address] | + + + | Home Phone [...] [place], | | | | | [place] [address] | | + + + + + Care Team Providers + +------+ + | Care Clinical Services Specialist Name | Role | Phone | [...] [id number] | | | | | | [place], [place] | | | | | | [address] | | | | | | [phone] | | | +--------+ + + + [...] | + + + + + | [facility] | [address] | [place] [address] | | | PATHOLOGY | [address] | | | + + + + + documented in this encounter Visit Diagnoses Not on filedocumented in this encounter"
--- OUTSIDE RECORDS SUMMARY | ~2018-12-23 | XMS | Encounter Summary ---
Demographics + + + | Address | [address] | | | [place] [address] | + + + | Home Phone [...] [place], | | | | | [place] [address] | | + + + + + Care Team Providers + +------+ + | Care Marketing Director Assisted Living Name | Role | Phone | + [...] as of this encounter Progress Notes Interface, Cigar Patcher In - 02/23/2006 5:02 AM PSTCLINIC DATE: [...] M.D. Resident, Internal Medicine Wallace Szymanski M.D. Rn Circulating, Internal Medicine TORI:mau d ocumented in this encounter Plan of Treatment Not on filedocumented as of this encounter Visit Diagnoses Not on filedocumented in this encounter
--- OUTSIDE RECORDS SUMMARY | ~2018-12-23 | XMS | Encounter Summary ---
Demographics + + + | Address | [address] | | | [place] [address] | + + + | Home Phone [...] [place], | | | | | [place] [address] | | + + + + + Care Team Providers + +------+ + | Care Histology Specialist Name | Role | Phone | [...] as of this encounter Progress Notes Interface, Terrazzo Journeyman In - 02/23/2006 5:02 AM PSTCLINIC DATE: [...] ago when she read about an [facility] clinic, and presented by self-referral to [...] medication in September when she moved from [place] to [place] and switched providers. Patient states that since [...] Patient was seen by Dr. Browning in [place], [place], at which time she was given [...] Recommended group therapy. Patient is covered through [facility] and she will investigate possible group therapy at the [facility] system. Patient was seen and interviewed with Dr. Anabelle Garcia. Frederic Koch M.D. Resident, Internal Medicine Anabelle Garcia M.D. Transportation Aide, Psychiatry ELDA/ruby d ocumented in this encounter Plan of Treatment Not on filedocumented as of this encounter Visit Diagnoses Not on filedocumented in this encounter"
--- OUTSIDE RECORDS SUMMARY | ~2018-12-23 | XMS | Clinical Summary ---
Demographics + + + | Address | [address] | | | [place] [address] | + + + | Home Phone [...] + + | Author | [facility] | | | and [place] | + + + | Organization | [facility] | [...] Team Providers + +------+ + | Care Lead Portfolio Manager Name | Role | Phone | [...] +--------+ +---------+--------+ | MEDICARE | MEDICA | [id number] | 03/21/18 | [phone] | | Medica | | | RE | | 96-Pre | 5 | | re | | | PART A | | sent | | | | | | AND B | | | | | | + +--------+ +--------+ +---------+--------+ | MEDICAID [place] | MEDICA | [id number] | | [phone] | | Medica | [...] | 1956 | [phone] | [place] [address] | | | anastasiya | | | 7 (Home) | | + +--------+ +--------+ + + Advance Directives Patient has advance care planning documents, and code status on file. For more information, please contact:[facility] [place] [address] + + + + + | Code Status | Date | Date | Comments | | | Activated | Inactivated | | + + + + + | Full Code | 08/04/2016 | 08/07/2016 | | | | 18:08 | 15:02 | | + + + + +
--- OUTSIDE RECORDS SUMMARY | ~2018-12-23 | XMS | Encounter Summary ---
Demographics + + + | Address | [address] | | | [place] [address] | + + + | Home Phone [...] [place], | | | | | [place] [address] | | + + + + + Care Team Providers + +------+ + | Care Husker Operator Name | Role | Phone | [...] as of this encounter Progress Notes Interface, Honeycomb Blanket Maker In - 02/12/2006 3:04 AM PSTCLINIC DATE: [...]
--- OUTSIDE RECORDS SUMMARY | ~2018-12-23 | XMS | Encounter Summary ---
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 She has been five times and five [...] bowel sounds. No hepatosplenomegaly noted. Rectal deferred. QA REVIEWER EXAMINATION: Deferred. EXTREMITIES: Clear of clubbing, cyanosis, [...] M.D. Resident, Internal Medicine Kaleb Velásquez M.D. Chin Strap Cutter, Medicine TORI/tesfaye cc: Wallace Szymanski M.D. Chin Strap Cutter, Internal Medicine Monroe Pruitt M.D. Chin Strap Cutter, Anesthesiology Director of Pain Management Center cc: documente d in this encounter Plan of Treatment Not on filedocumented as of this encounter Visit Diagnoses Not on filedocumented in this encounter
--- OUTSIDE RECORDS SUMMARY | ~2018-12-23 | XMS | Clinical Summary ---
Demographics + + + | Address | [address] | | | [place] [address] | + + + | Home Phone [...] [place], | | | | | [place] [address] | | + + + + + Care Team Providers + +------+ + | Care Radio Interference Expert Name | Role | Phone | + +------+ + PCP | Unavailable | + +------+ + Source Comments MARY is fully live on both [facility] Ambulatory and [facility] InPatient.[facility] Allergies Not on File Medications [...]
--- OUTSIDE RECORDS SUMMARY | ~2018-12-23 | XMS | Encounter Summary ---
Demographics + + + | Address | [address] | | | [place] [address] | + + + | Home Phone [...] [place], | | | | | [place] [address] | | + + + + + Care Team Providers + +------+ + | Care Bridge Game Director Name | Role | Phone | + +------+ + PCP | Unavailable | + +------+ + Encounter Details +--------+ + + + + | Date | Type | Department | Care Team | Description | +--------+ + + + + | 07/24/ | Office | General Internal | Note, Outpatient | Progress Note | | 1994 | Visit-Trans | Medicine [address] | Clinic | | | | [place] | [address] | | | | | | Mailcode: L475 | | | | | | Outpatient Clinic | | | | | | [address] | | | | | | [place], [place] | | | | | | [address] | | | | | | [phone] | | | +--------+ + + + [...] as of this encounter Progress Notes Interface, Crew Caller In - 06/05/2006 1:00 AM PDT CLINIC [...] remained quite high including continued attendance of jainism and working on pcenty-mgh-hrwpv activities. She denies changes in bladder or [...] 2. Bladder dysfunction, resolved. John Mulligan M.D. Pad Machine Offbearer, Anesthesiology Director, Pain Management Services PK:bony documented in this encounter Plan of Treatment Not on filedocumented as of this encounter Visit Diagnoses Not on filedocumented in this encounter"
--- OUTSIDE RECORDS SUMMARY | ~2018-12-23 | XMS | Encounter Summary ---
Demographics + + + | Address | [address] | | | [place] [address] | + + + | Home Phone [...] [place], | | | | | [place] [address] | | + + + + + Care Team Providers + +------+ + | Care Well Reactivator Operator Name | Role | Phone | + +------+ + PCP | Unavailable | + +------+ + Encounter Details +--------+ + + + + | Date | Type | Department | Care Team | Description | +--------+ + + + + | 09/28/ | Office | General Internal | Note, Outpatient | Progress Note | | 1994 | Visit-Trans | Medicine [address] | Clinic | | | | [place] | [address] | | | | | | Mailcode: [address]475 | | | | | | Outpatient Clinic | | | | | | [address] | | | | | | [place], [place] | | | | | | [address] | | | | | | [phone] | | | +--------+ + + + [...] as of this encounter Progress Notes Interface, Curator Natural History Museum In - 06/01/2006 3:00 AM PDT CLINIC [...] in the Pain Clinic. Faisal Grijalva M.D. Cut Off Machine Helper, Neurology JSantana/ben documented in this encounter Plan of Treatment Not on filedocumented as of this encounter Visit Diagnoses Not on filedocumented in this encounter"
--- OUTSIDE RECORDS SUMMARY | ~2018-12-23 | XMS | Encounter Summary ---
Demographics + + + | Address | [address] | | | [place] [address] | + + + | Home Phone [...] [place], | | | | | [place] [address] | | + + + + + Care Team Providers + +------+ + | Care Skin Care Technician Name | Role | Phone | + +------+ + PCP | Unavailable | + +------+ + Encounter Details +--------+ + + + + | Date | Type | Department | Care Team | Description | +--------+ + + + + | 12/25/ | Office | UNKNOWN DEPARTMENT | Note, Outpatient | Progress Note | | 1993 | Visit-Trans | [address] | Clinic | | | | [place] | [address] | | | | | | [place], [place] | | | | | | [address] | | | +--------+ + + + [...] as of this encounter Progress Notes Interface, Concrete Polisher In - 06/14/2006 5:08 AM PDT CLINIC [...] drink alcohol. 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 She is , currently living with a boyfriend/roommate in [place]. She is subsisting on Welfare, she has [...] management of somatization disorder. Faisal Grijalva M.D. Deer Farmer, Neurology PIYUSH/ifrah cc: LEILANI ACOSTA MD [address] [place] [address] documented in this encounter Plan of Treatment Not on filedocumented as of this encounter Visit Diagnoses Not on filedocumented in this encounter
--- OUTSIDE RECORDS SUMMARY | ~2018-12-23 | XMS | Encounter Summary ---
Demographics + + + | Address | [address] | | | [place] [address] | + + + | Home Phone [...] [place], | | | | | [place] [address] | | + + + + + Care Team Providers + +------+ + | Care Loader Engineer Name | Role | Phone | [...] as of this encounter Progress Notes Interface, Embedder In - 02/12/2006 3:04 AM PSTCLINIC DATE: [...]
--- OUTSIDE RECORDS SUMMARY | ~2018-12-23 | XMS | Encounter Summary ---
Demographics + + + | Address | [address] | | | [place] [address] | + + + | Home Phone [...] [place], | | | | | [place] [address] | | + + + + + Care Team Providers + +------+ + | Care Filter Machine Operator Name | Role | Phone | + +------+ + PCP | Unavailable | + +------+ + Encounter Details +--------+ + + + + | Date | Type | Department | Care Team | Description | +--------+ + + + + | 06/26/ | Office | General Internal | Note, Outpatient | Progress Note | | 1994 | Visit-Trans | Medicine [address] | Clinic | | | | [place] | [address] | | | | | | Mailcode: [address]475 | | | | | | Outpatient Clinic | | | | | | [address] | | | | | | [place], [place] | | | | | | [address] | | | | | | [phone] | | | +--------+ + + + [...] of this encounter Progress Notes Interface, Computer Systems Hardware Analyst In - 06/06/2006 5:07 AM PDT CLINIC [...] addition, she remains active in her local adventist and is in the process of moving [...] 2. Bladder dysfunction, resolved. John Mulligan M.D. Crime Scene Specialist, Anesthesiology Director, Pain Management Services HUI /efren A documented in this encounter Plan of Treatment Not on filedocumented as of this encounter Visit Diagnoses Not on filedocumented in this encounter"
--- OUTSIDE RECORDS SUMMARY | ~2018-12-23 | XMS | Encounter Summary ---
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 Moreover, she says this is an important [...] or from any other provider at [facility]. She has violated our contract as set forth in a previous note. She understands this. Moreover, she understands that her chart will be flagged in the [facility] system so that she cannot receive narcotics. [...]
--- OUTSIDE RECORDS SUMMARY | ~2018-12-23 | XMS | Encounter Summary ---
Demographics + + + | Address | [address] | | | [place] [address] | + + + | Home Phone [...] [place], | | | | | [place] [address] | | + + + + + Care Team Providers + +------+ + | Care Neuropsychiatrist Name | Role | Phone | + [...] as of this encounter Progress Notes Interface, Clinical Microbiologist In - 02/09/2006 5:05 AM PSTCLINIC DATE: [...] seeking drugs at numerous medical centers throughout [facility] and [facility]. 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 I contacted [facility] and [facility] in [place] (telephone # [phone] and [phone] respectively) to warn them of her potential misuse of medication. Moreover, I am concerned because she has a prescription for MS Contin in hand which she is supposed to fill for June and I wanted to make sure they knew to confiscate that prescription and not have it filled. Lastly, I have spoken with Nelly Hamilton, our clinical neonatal social worker, who has taken the task in hand as far as alerting Social Security and Medicare of potential fraud. Hui Milton M.D. TORI/kiah cc: Doris Maurice [facility] Internal Medicine Miranda García [facility] Internal Medicine Andria Hamilton [facility] Internal Medicine [facility] Wallace Szymanski M.D. [facility] Internal Medicine 5 :05 AM PSTdocumented in this encounter Plan of Treatment Not on filedocumented as of this encounter Visit Diagnoses Not on filedocumented in this encounter"
--- OUTSIDE RECORDS SUMMARY | ~2018-12-23 | XMS | Clinical Summary ---
Demographics + + + | Address | [address] | | | [place] [address] | + + + | Home Phone | | + + + | Preferred Language | Unknown | + + + | Marital Status | Single | + + + | Synagogue Affiliation | Unknown | + + + | Race | Unknown | + + + | Ethnic Group | Unknown | + + + Author + + + | Author | [facility] | | | and [place] | + + + | Organization | [facility] | [...] Team Providers + +------+ + | Care Kennel Hand Name | Role | Phone | [...] +--------+ +---------+--------+ | MEDICARE | MEDICA | [id number] | 03/21/18 | [phone] | | Medica | | | RE | | 96-Pre | 5 | | re | | | PART A | | sent | | | | | | AND B | | | | | | + +--------+ +--------+ +---------+--------+ | MEDICAID [place] | MEDICA | [id number] | | [phone] | | Medica | [...] | 1956 | [phone] | [place] [address] | | | anastasiya | | | 7 (Home) | | + +--------+ +--------+ + + Advance Directives Patient has advance care planning documents, and code status on file. For more information, please contact:[facility] [place] [address] + + + + + | Code Status | Date | Date | Comments | | | Activated | Inactivated | | + + + + + | Full Code | 08/04/2016 | 08/07/2016 | | | | 18:08 | 15:02 | | + + + + +
--- OUTSIDE RECORDS SUMMARY | ~2018-12-23 | XMS | Encounter Summary ---
Demographics + + + | Address | [address] | | | [place] [address] | + + + | Home Phone [...] [place], | | | | | [place] [address] | | + + + + + Care Team Providers + +------+ + | Care Press Assistant Name | Role | Phone | + +------+ + PCP | Unavailable | + +------+ + Encounter Details +--------+ + + + + | Date | Type | Department | Care Team | Description | +--------+ + + + + | 05/13/ | Results | | Other, Faculty | | | 1998 | Only | | [phone] | | +--------+ + + + + [...] | | + +---------+ + + | [facility] DEPARTMENT OF | | | | | RADIOLOGY | | | | + +---------+ + + documented in this encounter Visit Diagnoses Not on filedocumented in this encounter"
--- OUTSIDE RECORDS SUMMARY | ~2018-12-23 | XMS | Encounter Summary ---
Demographics + + + | Address | [address] | | | [place] [address] | + + + | Home Phone [...] [place], | | | | | [place] [address] | | + + + + + Care Team Providers + +------+ + | Care Svp Digital Sales Name | Role | Phone | + [...]
--- OUTSIDE RECORDS SUMMARY | ~2018-12-23 | XMS | Encounter Summary ---
Demographics + + + | Address | [address] | | | [place] [address] | + + + | Home Phone [...] [place], | | | | | [place] [address] | | + + + + + Care Team Providers + +------+ + | Care Tile And Marble Setter Name | Role | Phone | + +------+ + PCP | Unavailable | + +------+ + Encounter Details +--------+ + + + + | Date | Type | Department | Care Team | Description | +--------+ + + + + | 12/25/ | Office | UNKNOWN DEPARTMENT | Note, Outpatient | Progress Note | | 1993 | Visit-Trans | [address] | Clinic | | | | [place] | [address] | | | | | | [place], [place] | | | | | | [address] | | | +--------+ + + + [...] as of this encounter Progress Notes Interface, Transfer Car Operator In - 06/14/2006 5:08 AM PDT [...] drink alcohol. 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 She is , currently living with a boyfriend/roommate in [place]. She is subsisting on Welfare, she has [...] management of somatization disorder. Faisal Grijalva M.D. Cartridge Loading Operator, Neurology PIYUSH/ifrah cc: LEILANI ACOSTA MD [address] [place] [id number] documented in this encounter Plan of Treatment Not on filedocumented as of this encounter Visit Diagnoses Not on filedocumented in this encounter
--- OUTSIDE RECORDS SUMMARY | ~2018-12-23 | XMS | Encounter Summary ---
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 Moreover, she says this is an important [...] myself or from any other provider at [facility]. She has violated our contract as set forth in a previous note. She understands this. Moreover, she understands that her chart will be flagged in the [facility] system so that she cannot receive [...]
--- OUTSIDE RECORDS SUMMARY | ~2018-12-23 | XMS | Encounter Summary ---
Demographics + + + | Address | [address] | | | [place] [address] | + + + | Home Phone [...] [place], | | | | | [place] [address] | | + + + + + Care Team Providers + +------+ + | Care Marine Operations Coordinator Name | Role | Phone | + +------+ + PCP | Unavailable | + +------+ + Encounter Details +--------+ + + + + | Date | Type | Department | Care Team | Description | +--------+ + + + + | 04/11/ | Office | UNKNOWN DEPARTMENT | Note, Outpatient | Progress Note | | 1994 | Visit-Trans | [address] [facility] | Clinic | | | | [place] | [address] | | | | | | [place], [place] | | | | | | [address] | | | +--------+ + + + [...] as of this encounter Progress Notes Interface, Airborne And Air Delivery Specialist In - 06/11/2006 5:10 AM PDT CLINIC DATE: 04/11/94 NEUROLOGY CLINIC: Litzy returns for follow-up of her chronic pain syndrome. Since our last visit, I have had the opportunity to review an lumbosacral (LS) spine magnetic resonance imaging (MRI) performed at an outside hospital and dated 05/06/93. This was performed at [facility]. It was a good quality study and [...] Follow-up in Pain Clinic. Faisal Grijalva M.D. Drier Attendant, Neurology FELIZ:manuel documented in this encounter Plan of Treatment Not on filedocumented as of this encounter Visit Diagnoses Not on filedocumented in this encounter
--- OUTSIDE RECORDS SUMMARY | ~2018-12-23 | XMS | Encounter Summary ---
Demographics + + + | Address | [address] | | | [place] [address] | + + + | Home Phone [...] [place], | | | | | [place] [address] | | + + + + + Care Team Providers + +------+ + | Care Bank Operations Officer Name | Role | Phone | [...]
--- OUTSIDE RECORDS SUMMARY | ~2018-12-23 | XMS | Encounter Summary ---
Demographics + + + | Address | [address] | | | [place] [address] | + + + | Home Phone [...] [place], | | | | | [place] [address] | | + + + + + Care Team Providers + +------+ + | Care Vinyl Flooring Installer Name | Role | Phone | [...]
--- OUTSIDE RECORDS SUMMARY | ~2018-12-23 | XMS | Encounter Summary ---
Demographics + + + | Address | [address] | | | [place] [address] | + + + | Home Phone [...] [place], | | | | | [place] [address] | | + + + + + Care Team Providers + +------+ + | Care Kiln Furniture Saw Tender Name | Role | Phone | [...] as of this encounter Progress Notes Interface, Washer And Capper Machine Operator In - 02/28/2006 3:08 AM [facility] [place] [address] [place] [address] or November 05, 1997 OLEG PUGH MD [address] [facility] [address] RE: LITZY EVANS MR#: [id number] : 51 [...] with Dr. Kaleb Velásquez here at [facility]. Therefore, I will send you [...] Center prior to my arrival at [facility]. She states that she has [...] a variety of medications including Tegretol, [place], Amitriptyline, and other antidepressants. CURRENT MEDICATIONS: 1. 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 She smokes one pack of [...] also with some difficulty. Romberg is negative. Hutsql-jzdp-xmkqqs is normal. On examination of her chest [...] normal limits." IMPRESSION: 1. Fibromyalgia by 1990 [employer] criteria. 2. Significant psychiatric [...] care from Internal Medicine here at [facility], would be for her to [...] care with Dr. Velásquez here at [facility], I would be happy to discuss her care with him at that point. In the meantime, I have nothing additional or specific to offer for Ms. [place]' care. Thank you very much for your referral of Ms. Evans to the Pain Management Center here at [facility]. If you have any questions or concerns, please do not hesitate to give me a call at [phone]. Monroe Pruitt M.D. Qm Nurse, Anesthesiology Director of Pain Management Center BRS:mau cc: Kaleb Velásquez M.D. Qm Nurse, Medicine Richie Her, M.D. Qm Nurse, Department of Orthopedics and Rehabilitation Kaleb Velásquez M.D. Qm Nurse, Medicine Richie Her M.D. Qm Nurse, Department of Orthopedics and Rehabilitation documented in this encounter Plan of Treatment Not on filedocumented as of this encounter Visit Diagnoses Not on filedocumented in this encounter
--- OUTSIDE RECORDS SUMMARY | ~2018-12-23 | XMS | Encounter Summary ---
Demographics + + + | Address | [address] | | | [place] [address] | + + + | Home Phone [...] [place], | | | | | [place] [address] | | + + + + + Care Team Providers + +------+ + | Care Caterpillar Driver Name | Role | Phone | [...] of this encounter Progress Notes Interface, Fuel Distribution System Operator In - 02/14/2006 5:12 AM PSTINIC DATE: 03/21/1998 INTERNAL MEDICINE CLINIC SUBJECTIVE: Ms. [place] comes in today for follow up of her chronic pain. She has been in a flare for the last two weeks, since her mother became ill after having a fall precipitating a fractured humerus. 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 Wallace Szymanski. Hui [place] M.D. [facility] Wallace Szymanski M.D. [facility] MS/hhk d ocumented in this encounter Plan of Treatment Not on filedocumented as of this encounter Visit Diagnoses Not on filedocumented in this encounter"
--- OUTSIDE RECORDS SUMMARY | ~2018-12-23 | XMS | Encounter Summary ---
Demographics + + + | Address | [address] | | | [place] [address] | + + + | Home Phone [...] [place], | | | | | [place] [address] | | + + + + + Care Team Providers + +------+ + | Care Olive Packer Name | Role | Phone | + [...]
--- OUTSIDE RECORDS SUMMARY | ~2018-12-23 | XMS | Encounter Summary ---
Demographics + + + | Address | [address] | | | [place] [address] | + + + | Home Phone [...] [place], | | | | | [place] [address] | | + + + + + Care Team Providers + +------+ + | Care Drying Machine Back Tender Name | Role | Phone | [...]
--- OUTSIDE RECORDS SUMMARY | ~2018-12-23 | XMS | Encounter Summary ---
Demographics + + + | Address | [address] | | | [place] [address] | + + + | Home Phone [...] [place], | | | | | [place] [address] | | + + + + + Care Team Providers + +------+ + | Care Partner Cco Name | Role | Phone | + [...]
--- OUTSIDE RECORDS SUMMARY | ~2018-12-23 | XMS | Encounter Summary ---
Demographics + + + | Address | [address] | | | [place] [address] | + + + | Home Phone [...] [place], | | | | | [place] [address] | | + + + + + Care Team Providers + +------+ + | Care Religious Healer Name | Role | Phone | + [...]
--- OUTSIDE RECORDS SUMMARY | ~2018-12-23 | XMS | Encounter Summary ---
Demographics + + + | Address | [address] | | | [place] [address] | + + + | Home Phone [...] [place], | | | | | [place] [address] | | + + + + + Care Team Providers + +------+ + | Care Electrical Engineering Designer Name | Role | Phone | + +------+ + PCP | Unavailable | + +------+ + Encounter Details +--------+ + + + + | Date | Type | Department | Care Team | Description | +--------+ + + + + | 10/09/ | Office | General Internal | Note, Outpatient | Progress Note | | 1994 | Visit-Trans | Medicine [address] | Clinic | | | | [place] | [address] | | | | | | Mailcode: L475 | | | | | | Outpatient Clinic | | | | | | [address] | | | | | | [place], [place] | | | | | | [address] | | | | | | [phone] | | | +--------+ + + + [...] as of this encounter Progress Notes Interface, Circus Trainer In - 06/01/2006 3:00 AM PDT CLINIC [...] actively in her social programs including attending episcopal and bible-study sessions. CURRENT MEDICATIONS: Current medications [...] a very low level with her boyfriend's [employer] business. 3. Increasing social function. This seems to be quite stable and she now is able to understand the effect that anger has on her pain. Ms. Evans will no longer be able to be seen the Pain Management Clinic at [facility] because of a change in insurance coverage. She will be cared for at [facility]. She has requested that her Pain Management Clinic progress notes as well as her Orthopedic progress notes from [facility] be sent to that institution. [...] of her chronic pain. John Mulligan M.D. Congressional District Aide, Anesthesiology Director, Pain Management Services PK:bony cc: CAROLINE YOON MD [facility] documented in this encounter Plan of Treatment Not on filedocumented as of this encounter Visit Diagnoses Not on filedocumented in this encounter"
--- OUTSIDE RECORDS SUMMARY | ~2018-12-23 | XMS | Encounter Summary ---
Demographics + + + | Address | 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 She has been five times and five [...] bowel sounds. No hepatosplenomegaly noted. Rectal deferred. ZIPPER TRIMMER HAND EXAMINATION: Deferred. EXTREMITIES: Clear of clubbing, cyanosis, [...] recommend that she be evaluated by Dr. aJyla Garcia with regards to her medications. Perhaps, under her guidance, we can consider initiating a tricyclic or a different SSRI that would help with her radicular pain and numbness. The patient's interview, physical examination, and treatment plan were thoroughly discussed with Dr. Tariq Velásquez who concurred with this treatment plan. Hui Milton M.D. Resident, Internal Medicine Kaleb Velásquez M.D. Core Fitter, Medicine TORI/tesfaye cc: Wallace Szymanski M.D. Core Fitter, Internal Medicine Monroe Pruitt M.D. Core Fitter, Anesthesiology Director of Pain Management Center cc: documente d in this encounter Plan of Treatment Not on filedocumented as of this encounter Visit Diagnoses Not on filedocumented in this encounter
--- OUTSIDE RECORDS SUMMARY | ~2018-12-23 | XMS | Encounter Summary ---
Demographics + + + | Address | [address] | | | [place] [address] | + + + | Home Phone [...] [place], | | | | | [place] [address] | | + + + + + Care Team Providers + +------+ + | Care Regional Production Manager Name | Role | Phone [...] of this encounter Progress Notes Interface, Clinical Product Manager In - 02/28/2006 3:08 AM PSTCLINIC [...] recently by a family medicine service in [place], [place]. 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 Richie Her M.D. Information Services Vice President, Department of Orthopedics and Rehabilitation DANELLE/emily P documented in this encounter Plan of Treatment Not on filedocumented as of this encounter Visit Diagnoses Not on filedocumented in this encounter"
--- OUTSIDE RECORDS SUMMARY | ~2018-12-23 | XMS | Encounter Summary ---
Demographics + + + | Address | [address] | | | [place] [address] | + + + | Home Phone [...] [place], | | | | | [place] [address] | | + + + + + Care Team Providers + +------+ + | Care Paper Bags Sewing Machine Operator Name | Role | Phone [...] as of this encounter Progress Notes Interface, Palletizer In - 02/17/2006 3:01 AM PSTCLINIC DATE: 03/09/1998 INTERNAL MEDICINE CLINIC SUBJECTIVE: This is a patient of Mp Milton who comes in today with pain exacerbation secondary to her fibromyalgia and chronic low back pain. At the last visit she made a verbal commitment for management of her chronic pain, which included an agreement that Mp was her sole Vicodin manager digital. She attempted to make an appointment with [...]
--- OUTSIDE RECORDS SUMMARY | ~2018-12-23 | XMS | Encounter Summary ---
Demographics + + + | Address | [address] | | | [place] [address] | + + + | Home Phone [...] [place], | | | | | [place] [address] | | + + + + + Care Team Providers + +------+ + | Care Legal Document Specialist Name | Role | Phone | + +------+ + PCP | Unavailable | + +------+ + Encounter Details +--------+ + + + + | Date | Type | Department | Care Team | Description | +--------+ + + + + | 09/04/ | Office | General Internal | Note, Outpatient | Progress Note | | 1994 | Visit-Trans | Medicine [address] | Clinic | | | | [place] | [address] | | | | | | Mailcode: [address]475 | | | | | | Outpatient Clinic | | | | | | [address] | | | | | | [place], [place] | | | | | | [address] | | | | | | [phone] | | | +--------+ + + + [...] as of this encounter Progress Notes Interface, Bacon Stringer In - 06/03/2006 2:00 AM PDT CLINIC [...] Ms. Evans has not been attending her samaritan on Sundays but continues to go to local samaritan meetings. She denies sedation, and nausea and [...] increased social function and participation in her congregation group. John Mulligan M.D. Chief Airline Radio Operator, Anesthesiology Director, Pain Management Services PK:bony cc: CAROLINE YOON MD CHILD CARE LEAD TEACHER [facility] documented in this encounter Plan of Treatment Not on filedocumented as of this encounter Visit Diagnoses Not on filedocumented in this encounter
--- OUTSIDE RECORDS SUMMARY | ~2018-12-23 | XMS | Encounter Summary ---
Demographics + + + | Address | [address] | | | [place] [address] | + + + | Home Phone [...] [place], | | | | | [place] [address] | | + + + + + Care Team Providers + +------+ + | Care Christian Science Reader Name | Role | Phone | + [...] as of this encounter Progress Notes Interface, Sericulture Teacher In - 02/23/2006 5:02 AM PSTCLINIC DATE: [...] M.D. Resident, Internal Medicine Wallace Szymanski M.D. Gift Shop Manager, Internal Medicine TORI/JENAE/estrellita d ocumented in this encounter Plan of Treatment Not on filedocumented as of this encounter Visit Diagnoses Not on filedocumented in this encounter"
--- OUTSIDE RECORDS SUMMARY | ~2018-12-23 | XMS | Encounter Summary ---
Demographics + + + | Address | [address] | | | [place] [address] | + + + | Home Phone [...] [place], | | | | | [place] [address] | | + + + + + Care Team Providers + +------+ + | Care Nuclear Physics Professor Name | Role | Phone | [...] [id number] | | | | | | [place], [place] | | | | | | [address] | | | | | | [phone] | | | +--------+ + + + [...] | + + + + + | [facility] | [address] | [place] [address] | | | PATHOLOGY | [address] [...] | + + + + + | [facility] | [address] | [place] [address] | | | PATHOLOGY | [address] [...] | + + + + + | [facility] | [address] | [place] [address] | | | PATHOLOGY | [address] [...] | + + + + + | [facility] | [address] | [place] [address] | | | PATHOLOGY | [address] [...] | + + + + + | [facility] | [address] | [place] [address] | | | PATHOLOGY | [address] [...] + + | NITRITES | NEG | AMRILOU UNITS | | | + + + [...] | + + + + + | [facility] | [address] | [place] [address] | | | PATHOLOGY | [address] | | | + + + + + documented in this encounter Visit Diagnoses Not on filedocumented in this encounter"
--- OUTSIDE RECORDS SUMMARY | ~2018-12-23 | XMS | Encounter Summary ---
Demographics + + + | Address | [address] | | | [place] [address] | + + + | Home Phone [...] [place], | | | | | [place] [address] | | + + + + + Care Team Providers + +------+ + | Care Poker Room Manager Name | Role | Phone | [...] CARLOS Valdez | | | | | [address] | [place], [place] | | | | | Vernell Correa Mailcode: | [id number] | | | | | [id number] Outpatient | [phone] | | | | | Clinic Building | | | | | | [place], [place] | | | | | | [address] | | | | | | [phone] | | | +--------+ + + + [...]
--- OUTSIDE RECORDS SUMMARY | ~2018-12-23 | XMS | Encounter Summary ---
Demographics + + + | Address | [address] | | | [place] [address] | + + + | Home Phone [...] [place], | | | | | [place] [address] | | + + + + + Care Team Providers + +------+ + | Care Denture Technician Name | Role | Phone | [...] as of this encounter Progress Notes Interface, Stores Despatch Hand In - 02/07/2006 1:09 AM PSTCLINIC DATE: [...] or throat itching. She has been taking kemn-wuj-adywzbd pseudoephedrine, but has not noted much relief. [...] Ms. Evans is planning to move to [place]. We will forward her records as soon [...]
--- OUTSIDE RECORDS SUMMARY | ~2018-12-23 | XMS | Encounter Summary ---
Demographics + + + | Address | [address] | | | [place] [address] | + + + | Home Phone [...] [place], | | | | | [place] [address] | | + + + + + Care Team Providers + +------+ + | Care Snap Attacher Name | Role | Phone | [...] as of this encounter Progress Notes Interface, Military Science Teacher In - 02/23/2006 5:02 AM PSTCLINIC [...] ago when she read about an [facility] clinic, and presented by self-referral to [...] medication in September when she moved from [place] to [place] and switched providers. Patient states that since [...] Patient was seen by Dr. Browning in [place], [place], at which time she was given [...] Recommended group therapy. Patient is covered through [facility] and she will investigate possible group therapy at the [facility]. Patient was seen and interviewed with Dr. Anabelle Garcia. Frederic Koch M.D. Resident, Internal Medicine Anabelle Garcia M.D. Natural History Collections Curator, Psychiatry ELDA/ruby d ocumented in this encounter Plan of Treatment Not on filedocumented as of this encounter Visit Diagnoses Not on filedocumented in this encounter"
--- OUTSIDE RECORDS SUMMARY | ~2018-12-23 | XMS | Encounter Summary ---
Demographics + + + | Address | [address] | | | [place] [address] | + + + | Home Phone [...] [place], | | | | | [place] [address] | | + + + + + Care Team Providers + +------+ + | Care Ham Boner Name | Role | Phone | + [...] of this encounter Progress Notes Interface, Senior Tax Analyst In - 02/17/2006 3:01 AM PSTCLINIC DATE: 03/09/1998 INTERNAL MEDICINE CLINIC SUBJECTIVE: This is a patient of Mp Milton who comes in today with pain exacerbation secondary to her fibromyalgia and chronic low back pain. At the last visit she made a verbal commitment for management of her chronic pain, which included an agreement that Mp was her sole Vicodin processing manager. She attempted to make an appointment [...]
--- OUTSIDE RECORDS SUMMARY | ~2018-12-23 | XMS | Encounter Summary ---
Demographics + + + | Address | [address] | | | [place] [address] | + + + | Home Phone [...] [place], | | | | | [place] [address] | | + + + + + Care Team Providers + +------+ + | Care Equipment Operation Instructor Name | Role | Phone | + [...] as of this encounter Progress Notes Interface, Saloon Keeper In - 02/09/2006 5:05 AM PSTCLINIC DATE: [...] seeking drugs at numerous medical centers throughout [facility] and [facility]. 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 I contacted [facility] and [facility] in [place] (telephone # [phone] and [phone] respectively) to warn them of her potential [...] Milton M.D. TORI/kiah cc: Doris Maurice [facility] Internal Medicine Miranda García [facility] Internal Medicine Andria Hamilton [facility] Internal Medicine Kait Oneal [facility] Wallace Szymanski M.D. [facility] Internal Medicine 5 :05 AM PSTdocumented in this encounter Plan of Treatment Not on filedocumented as of this encounter Visit Diagnoses Not on filedocumented in this encounter"
--- OUTSIDE RECORDS SUMMARY | ~2018-12-23 | XMS | Encounter Summary ---
Demographics + + + | Address | [address] | | | [place] [address] | + + + | Home Phone [...] [place], | | | | | [place] [address] | | + + + + + Care Team Providers + +------+ + | Care Medical Information Specialist Name | Role | Phone | [...] of this encounter Progress Notes Interface, Truck Jumper In - 02/21/2006 3:06 AM PSTCLINIC DATE: [...] M.D. Resident, Internal Medicine Wallace Szymanski M.D. Disbursement Clerk, Internal Medicine TORI/niles d ocumented in this encounter Plan of Treatment Not on filedocumented as of this encounter Visit Diagnoses Not on filedocumented in this encounter"
--- OUTSIDE RECORDS SUMMARY | ~2018-12-23 | XMS | Encounter Summary ---
Demographics + + + | Address | [address] | | | [place] [address] | + + + | Home Phone [...] [place], | | | | | [place] [address] | | + + + + + Care Team Providers + +------+ + | Care Hogshead Cooper Name | Role | Phone | + [...]
--- OUTSIDE RECORDS SUMMARY | ~2018-12-23 | XMS | Encounter Summary ---
Demographics + + + | Address | [address] | | | [place] [address] | + + + | Home Phone [...] [place], | | | | | [place] [address] | | + + + + + Care Team Providers + +------+ + | Care Street Light Inspector Name | Role | Phone | + +------+ + PCP | Unavailable | + +------+ + Encounter Details +--------+ + + + + | Date | Type | Department | Care Team | Description | +--------+ + + + + | 06/26/ | Office | General Internal | Note, Outpatient | Progress Note | | 1994 | Visit-Trans | Medicine [address] | Clinic | | | | [address] | [address] | | | | | | Mailcode: [id number] | | | | | | Outpatient Clinic | | | | | | [address] | | | | | | [place], [place] | | | | | | [address] | | | | | | [phone] | | | +--------+ + + + [...] of this encounter Progress Notes Interface, Inspector Semiconductor Wafer In - 06/06/2006 5:07 AM PDT CLINIC [...] addition, she remains active in her local scientology and is in the process of moving [...] 2. Bladder dysfunction, resolved. John Mulligan M.D. Assistant Professor Of Art, Anesthesiology Director, Pain Management Services HUI /efren A documented in this encounter Plan of Treatment Not on filedocumented as of this encounter Visit Diagnoses Not on filedocumented in this encounter"
--- OUTSIDE RECORDS SUMMARY | ~2018-12-23 | XMS | Encounter Summary ---
Demographics + + + | Address | [address] | | | [place] [address] | + + + | Home Phone [...] [place], | | | | | [place] [address] | | + + + + + Care Team Providers + +------+ + | Care Laboratory Specialist Name | Role | Phone [...] [id number] | | | | | | [place], [place] | | | | | | [address] | | | | | | [phone] | | | +--------+ + + + [...] + + + + + | [facility] | [address] | [place] [address] | | | PATHOLOGY | [address] [...] + + + + + | [facility] | [address] | [place] [address] | | | PATHOLOGY | [address] [...] + + + + + | [facility] | [address] | [place] [address] | | | PATHOLOGY | [address] [...] + + + + + | [facility] | [address] | [place] [address] | | | PATHOLOGY | [address] [...] + + + + + | [facility] | [address] | [place] [address] | | | PATHOLOGY | [address] [...] + + + + + | [facility] | [address] | [place] [address] | | | PATHOLOGY | [address] | | | + + + + + documented in this encounter Visit Diagnoses Not on filedocumented in this encounter"
--- OUTSIDE RECORDS SUMMARY | ~2018-12-23 | XMS | Encounter Summary ---
Demographics + + + | Address | [address] | | | [place] [address] | + + + | Home Phone [...] [place], | | | | | [place] [address] | | + + + + + Care Team Providers + +------+ + | Care Dance Coach Name | Role | Phone | [...] of this encounter Progress Notes Interface, Chief Data Officer In - 02/17/2006 3:01 AM PSTCLINIC DATE: 03/09/1998 INTERNAL MEDICINE CLINIC SUBJECTIVE: This is a patient of Mp Milton who comes in today with pain exacerbation secondary to her fibromyalgia and chronic low back pain. At the last visit she made a verbal commitment for management of her chronic pain, which included an agreement that Mp was her sole Vicodin customer advocacy manager. She attempted to make an appointment [...]
--- OUTSIDE RECORDS SUMMARY | ~2018-12-23 | XMS | Encounter Summary ---
Demographics + + + | Address | [address] | | | [place] [address] | + + + | Home Phone [...] [place], | | | | | [place] [address] | | + + + + + Care Team Providers + +------+ + | Care Mails Supervisor Name | Role | Phone | [...] of this encounter Progress Notes Interface, Teacher Theater Arts In - 02/17/2006 3:01 AM PSTCLINIC DATE: 03/09/1998 INTERNAL MEDICINE CLINIC SUBJECTIVE: This is a patient of Mp Milton who comes in today with pain exacerbation secondary to her fibromyalgia and chronic low back pain. At the last visit she made a verbal commitment for management of her chronic pain, which included an agreement that Mp was her sole Vicodin production team manager. She attempted to make an appointment [...]
--- OUTSIDE RECORDS SUMMARY | ~2018-12-23 | XMS | Encounter Summary ---
Demographics + + + | Address | [address] | | | [place] [address] | + + + | Home Phone [...] [place], | | | | | [place] [address] | | + + + + + Care Team Providers + +------+ + | Care Odd Job Laborer Name | Role | Phone | [...] as of this encounter Progress Notes Interface, Aviation Maintenance Instructor In - 02/21/2006 3:06 AM PSTCLINIC DATE: [...] M.D. Resident, Internal Medicine Wallace Szymanski M.D. Certified Performance Technologist, Internal Medicine TORI/joshua d ocumented in this encounter Plan of Treatment Not on filedocumented as of this encounter Visit Diagnoses Not on filedocumented in this encounter"
[~2018-12-23 14:06] MED LIST changes: -GABAPENTIN300 MG PO; +IPRAT-ALBUT 0.5-3 ML INH; +NEURONTIN600 MG PO; -PROCARDIA XL30 MG PO; +PROCARDIA XL60 MG PO; +PSEUDOEPHEDRIN120 MG PO
--- OUTSIDE RECORDS SUMMARY | 2018-12-23 14:10 | XMS ---
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 LLAMAS Security Domestic Maid Events No recent Security Events currently on file CRITERIA MET - Group Notification - [facility] Guidelines - PDMP CARE PROVIDERS FRANTZ CONLEY Physician Manager Print: Medical Current PHONE: Unknown LY MACIAS [facility] 11/11/2017-Current PHONE: [phone] Ramos Granados MD PHONE: Unknown DR LY MACIAS [facility] 02/16/2016-Current PHONE: [phone] Guidelines Source: Esteban Landon Gaytan Guidelines Date: 08/04/2018 Care Coordination: Receives mental health services with [employer].\T\nbsp; Please contact [employer] with mental health concerns.\T\nbsp; [place]T\nbsp; \T\nbsp; [place]:\T\nbsp; [phone]. Care History Medical/Surgical 08/04/2018 [facility] - PATIENT HAS ALL OF HER PSYCH MEDICATIONS MANAGED BY [facility]. - PATIENT HAS PCP DR MACIAS IN [place]. - PATIENT DOES HAVE CASE MANAGEMENT THRU [facility]- PAST WAS LAST SEEN BY CASE MANAGEMENT WEEK OF 07/27/18. 05/13/2017 [facility] Care Recommendation: This patient has had 5 or more Emergency Department visits in the last 12 months. Patient requires education on the scope and purpose of the ED as an acute care provider not a Primary Care Provider and should not be utilized for chronic conditions. If patient returns to ED please contact Community Health WorkerKaylynn at [phone]. These are guidelines and the provider should exercise clinical judgment when providing care. E.D. VISIT COUNT (12 MO.) 7 [facility] TOTAL 7 NOTE: Visits indicate total known visits. ED/UCC VISIT TRACKING (12 MO.) 12/23/2018 14:07 [facility] [place] TYPE: Emergency COMPLAINT: - FALL 08/03/2018 13:06 [facility] [place] TYPE: Emergency COMPLAINT: - RASH, MEDICATION REFILL DIAGNOSES: - Rash and other nonspecific skin eruption 04/21/2018 16:34 [facility] [place] TYPE: Emergency COMPLAINT: - DIFFICULTY BREATHING/CONGESTION DIAGNOSES: - Allergy status to oth drug/meds/biol subst status - Fever, unspecified - Chr obstructive pulmon disease with (acute) lower resp infct - Allergy status to analgesic agent status - Chronic obstructive pulmonary disease w (acute) exacerbation - Acute bronchitis, unspecified - Nicotine dependence, unspecified, uncomplicated - Other long-term (current) drug therapy 03/22/2018 02:02 [facility] [place] TYPE: Emergency COMPLAINT: - MOUTH SWELLING 01/04/2018 07:47 [facility] [place] TYPE: Emergency COMPLAINT: - VOMITING/DIARRHEA DIAGNOSES: - Noninfective gastroenteritis and colitis, unspecified - Allergy status to analgesic agent status - Other long-term (current) drug therapy - Allergy status to oth drug/meds/biol subst status - Nicotine dependence, unspecified, uncomplicated - Nausea with vomiting, unspecified 01/03/2018 06:47 [facility] [place] TYPE: Emergency COMPLAINT: - VOMITTING/[id number] DIAGNOSES: - Allergy status to oth drug/meds/biol subst status - Other watermaster (current) drug therapy - Nausea with vomiting, unspecified - Nicotine dependence, unspecified, uncomplicated - Allergy status to analgesic agent status - Noninfective gastroenteritis and colitis, unspecified 01/01/2018 13:57 [facility] [place] TYPE: Emergency COMPLAINT: - ABD PAIN, DIARRHEA DIAGNOSES: - Nausea with vomiting, unspecified - Diarrhea, unspecified INPATIENT VISIT TRACKING (12 MO.) 03/22/2018 02:03 [facility] [place] TYPE: Observation COMPLAINT: - ANGIOEDEMA DIAGNOSES: - Emphysema, unspecified - jail (current) use of inhaled steroids - Essential (primary) hypertension - Nicotine dependence, cigarettes, uncomplicated - Fibromyalgia - Unspecified mood [affective] disorder - Rheumatoid arthritis, unspecified - Allergy status to oth drug/meds/biol subst status - Polyneuropathy, unspecified - Angioneurotic edema, initial encounter - Localized swelling, mass and lump, head - long term care social worker (current) use of opiate analgesic - Other long-term (current) drug therapy [email or web address]
--- NOTE | 2018-12-23 18:55 | NUR ---
MEW PT TO THE FLOOR. PT AWAKE, A&OX4. PT ON 2L OXYGEN, SAT LEVEL OF 93%. PT REPORTING SHE IS IN 7/10 PAIN. CALL LIGHT WITHIN REACH AT THIS TIME. PT ORIENTED TO ROOM. WILL CALL DR. OSPINA FOR ORDERS.
--- NOTE | 2018-12-23 18:58 | NUR ---
CALLED IN REGARDS TO TELEPHONE ORDER FOR HOSP. CONSULT. SAID HE SEEN HER IN ED.
--- NOTE | 2018-12-23 19:05 | NUR ---
ORDERS OBTAINED FROM DR. OSPINA AT THIS TIME.
--- NOTE | 2018-12-23 19:30 | NUR ---
PRN MORPHINE ADMINISTERED FOR 8/10 HIP PAIN. IV SL WNL. pt EDUCATED ON PLAN OF CARE. INSTRUCTED TO USE CALL LIGHT FOR ANY NEEDS, INCREASED PAIN. VERBALIZES UNDERSTANDING. FLOAT CLINICAL INVESTIGATOR NOTIFIED TO BRING pt FOOD.
--- NOTE | 2018-12-23 19:41 | NUR ---
PT RESTING IN BED. PAIN 09/27. PRN PAIN MED PROVIDED BY ANNA LANZA. ICE WATER PROVIDED. NO OTHER NEEDS AT THIS TIME. CALL LIGHT IN REACH.
--- NOTE | 2018-12-23 20:25 | EKG ---
[facility] [address] [facility] [place] [address] Signed Normal sinus rhythm Nonspecific ST and T wave abnormality Abnormal ECG When compared with ECG of 15-FEB-2017 10:51, Nonspecific T wave abnormality now evident in Lateral leads Confirmed by EDGAR DIMAS DO ([id number]) on 12/23/2018 8:25:08 PM Electronically Signed By: EDGAR DIMAS DO 12/23/18 2025 PATIENT NAME: ONEAL LLAMAS Electrocardiogram DATE OF : 51 PHYSICIAN: EDGAR DIMAS DO REPORT #: [id number] REPORT IS CONFIDENTIAL AND NOT TO BE RELEASED WITHOUT AUTHORIZATION
--- NOTE | 2018-12-23 21:18 | NUR ---
IV FLUIDS INFUSING PER ORDER, NINA CATHETER IN PLACE BY ANNA LANZA, SCHEDULED MEDS PROVIDED. PRN PAIN MEDS PROVIDED, 06/27. NO OTHER NEEDS AT THIS TIME. CALL LIGHT IN REACH.
--- NOTE | 2018-12-23 21:59 | NUR ---
PAIN 5/10 LEFT HIP. PRN PAIN MED PROVIDED. NO OTHER NEEDS. CALL LIGHT IN REACH.
--- NOTE | 2018-12-24 00:11 | NUR ---
PT RESTING IN BED, EYES CLOSED. RR 16, EVEN, UNLABORED. CALL LIGHT IN REACH.
--- NOTE | 2018-12-24 02:58 | NUR ---
PT REPORTS PAIN 8/10 IN LEFT HIP. PRN PAIN MED PROVIDED. ASSESSMENT COMPLETED. ICE PACK PROVIDED. NO OTHER NEEDS. CALL LIGHT IN REACH.
--- NOTE | 2018-12-24 04:05 | NUR ---
PT RESTING IN BED, EYES CLOSED. RR 20, EVEN, UNLABORED. CALL LIGHT IN REACH.
--- NOTE | 2018-12-24 05:15 | NUR ---
PT STATES PAIN 8/10. PRN PAIN MED PROVIDED. NEW IV PLACED LEFT FA, FLUSHED WELL. IV FLUIDS INFUSING PER ORDER. 2LPM NC. SPO2 95%. NO OTHER NEEDS AT THIS TIME.
--- NOTE | 2018-12-24 05:32 | NUR ---
PT HAS SLEPT ON AND OFF THIS SHIFT. PAIN MANAGED WELL WITH PRN MEDS, ICE PACKS, POSITIONING. PT TOLERATED IV AND FLUIDS WELL. CMS INTACT IN LLE. SPO2 TRENDING MID 90S ON 2L NC. PT TOLERATED NINA CATHETER WELL.
--- NOTE | 2018-12-24 07:18 | NUR ---
REPORT RECEIVED FROM POOL POTTS. PT RESTING IN BED. PT ERPORTS 5/10 PAIN (SEE MAR FOR MEDICATION GIVEN). PT DENIES NAUSEA. PT ANTICIPATING UPDATE ON PLAN OF CARE AND POSSIBLE SURGERY THIS SHIFT. NO ADDITIONAL REQUESTS OR COMPLAINTS AT THIS TIME. CALL LIGHT WITHIN REACH.
--- NOTE | 2018-12-24 08:11 | NUR ---
MORNING ASSESSMENT AND MEDICATION DUE. PT CALL LIGHT ON. PT REPORTS 4/10 PAIN AND REQUESTS MORE PAIN MEDICATION. PT ASSISTED WITH REPOSITIONING. ICE PACK IN PLACE. SEE MAR FOR MEDICATION GIVEN. ASSESSMENT DONE. PT REMAINS ON 2L O2 BY NC. LUNG SOUND COURSE IN RLL AND DEMINISHED IN LLL. WHEEZES PRESENT, RT TO BEDSIDE FOR NEB TREATMENTS. WHEEZES RESOLVE WITH TX. CMS INTACT. PT DENIES NUMBNESS AND TINGLING. PULSES STRONG. MOVMENT PRESENT IN BOTH FEET. MEDICATIONS GIVEN. NEW FLUIDS HUNG. PT REQUESTS NICOTENE PATCH. WILL CONSULT MD. PT ANTICIPATING UPDATE ON PLAN FOR SURGERY. PT REMAINS NPO (EXCEPT FOR MEDICATIONS) AT THIS TIME. NO ADDITIONAL REQUESTS OR COMPLAINTS. CALL LIGHT WITHIN REACH.
--- NOTE | 2018-12-24 08:28 | NUR ---
MD TO BEDSIDE. PT UPDATED ON PLAN OF CARE. NICOTENE PATCH ORDERED. PLAN FOR SURGERY TOMORROW. DIET ADVANCED TO REGULAR FOR TODAY. PT ASSISTED WITH PLACING BREAKFAST ORDER. NO ADDITIONAL REQUESTS OR COMPLAINTS. CALL LIGHT WITHIN REACH.
--- NOTE | 2018-12-24 09:06 | NUR ---
PT HAD EMESIS, ZOFRAN GIVEN AT THIS TIME 4MG IV. NICOTINE PATCH 21MG PLACED TO RIGHT SHOULDER AT THIS TIME
--- NOTE | 2018-12-24 10:12 | NUR ---
PT CALL LIGHT ON. PT REQUESTS PAIN MEDICAITON FOR 5/10 PAIN. SEE MAR FOR MEDICATION GIVEN. PT ATE 100% OF BREAKFAST. PT DENIES NAUSEA. FAMILY AT BEDSIDE. NO ADDITIONAL REQUESTS OR COMPLAINTS AT THIS TIME.
--- NOTE | 2018-12-24 10:55 | NUR ---
PTS PAIN CONTINUES AT 4-10. PT APPEARS RESTLESS IN BED AND IS CONCERNED ABOUT HER PAIN. MD CALLED. WILL RETURN CALL. SEE MAR FOR MEDICATION GIVEN. DISTRACTION AND COPING TECHNIQUES REVIEWED WIHT PT. PT DEMONSTRATES UNDERSTANDING WITH DEEP BREATHING, WATCHING TV, AND PLAYING GAMES ON PHONE. NO ADDITIONAL REQUESTS OR COMPLAINTS AT THIS TIME. CALL LIGHT WITHIN REACH.
--- NOTE | 2018-12-24 11:30 | NUR ---
PTS PAIN CONTINUES AT 06/27. MD CALLED. NEW ORDERS PLACED. THIS RN TO BEDSIDE. PT RESTLESS. SEE MAR FOR MEDICAITON GIVEN. PT CALMS WITH MEDICATION ADMINISTRATION STATING "NOW I'LL FEEL BETTER." ASSESSMENT DONE. LUNG SOUNDS CLEAR TO DEMINISHED. PT WEANED TO ROOM AIR. TOLERATING ROOM AIR WITH O2 SATURATIONS FROM 90-94% ON ROOM AIR. CMS INTACT, PULSES STRONG. PT EATING LUNCH. NO ADDITIONAL REQEUSTS OR COMPLAINTS AT THIS TIME. CALL LIGHT WITHIN REACH.
--- NOTE | 2018-12-24 12:51 | NUR ---
THIS RN TO ROOM TO CHECK ON PT. PT REPORTS 6/10 PAIN, SEE MAR FOR MEDICATION GIVEN. O2 STAURTION 92% ON ROOM AIR. PT REPORTS PAIN AT RAC PIV SITE. SITE ASSESSED, INFLAMATION NOTED. PIV DC'D PER PROTOCOL. GAUZE AND COBAN APPLIED. PT DENIES NAUSEA. NO ADDITIONAL REQUESTS OR COMPLAINTS. CALL LIGHT WITHIN REACH.
[2018-12-24] MEDS ORDERED: VENTOLIN HFA18 GM INH (13:08)
[2018-12-24] MEDS ORDERED: NORCO 10-325 T1 EACH PO (13:11)
--- NOTE | 2018-12-24 13:12 | NUR ---
Medications reconciled using pharmacy records and patient interview
--- NOTE | 2018-12-24 13:41 | NUR ---
THIS RN TO ROOM TO CHECK ON PT. PT RESTING WITH EYES CLOSED, RESPIRATIONS EVEN AND UNLABORED. BED RAILS UP. CALL LIGHT WITHIN REACH.
--- NOTE | 2018-12-24 14:09 | NUR ---
PDT ALERT, ORIENTED AND IN SOME OBVIOUS DISCOMFORT. HAD A MOMENT WITH PT, I INTRO MYSELF. PT MENTIONED SHE IS SCHEDULED FOR SURGERY THURS AND REQUESTED PRAYER BEFORE SURGERY. DR DIMAS IN, WILL SEE PT BEFORE SURGERY.
--- NOTE | 2018-12-24 14:56 | NUR ---
THIS RN TO ROOM TO CHECK ON PT AND UPDATE PT REGARDING SCANS THAT WERE ORDERED. PT VISITING WITH FRIEND. PT REPORTS 5/10 PAIN AND REQUESTS PAIN MEDICATIONS. SEE MAR FOR MEDICATION GIVEN. PT RETURNS TO VISTING WITH FRIEND. NO ADDITIONAL REQUESTS OR COMPLAINTS AT THIS TIME. CALL LIGHT WITHIN REACH
--- NOTE | 2018-12-24 15:30 | NUR ---
Met with pt in room. She states her nebulizer is broken and she needs a new one for her emphysema. Explained I can call [facility] and check if she qualifies for a new. Pt lives alone, eats 1 meal a day at [facility]. Does not snack. Drives self to lunch. Nebulizer was damaged some time ago and she has been borrowing or not using. Lives in an apartment and has a walker from her knee surgery in the past. Is established with [facility] [employer]. Has Medicaid and Medicare. Referral sent to [facility] to request [facility] provide pt a new Nebulizer as when I requested through [facility] she does not qualify until 2021. Also requested they set her up with [employer], telephonic case management through [facility], and information on [facility] transportation.
--- NOTE | 2018-12-24 15:36 | NUR ---
IMAGING CALLED AND WILL BE DOWN TO TAKE PT TO CT AT 1630. ORAL CONTRAST ORDERED, GIVEN ORDERED (SEE MAR). PT UPDATED ON SCANS AND TIMING. PT REPORTS 4/10 PAIN AND DENIES NAUSEA AT THIS TIME. CALL LIGHT WITHIN REACH.
--- NOTE | 2018-12-24 16:11 | NUR ---
AFTERNOON ASSESSMENT DUE. PT RESTING IN BED. PT REPORTS 5/10 PAIN, SEE MAR FOR MEDICATION GIVEN. PT DENIES NAUSEA. O2 AT 86% ON ROOM AIR. PT RETURNED TO 2L O2 BY [place] WITH GOOD RESULTS, O2 INCREASES TO 91% ON 2 L. I.S. PROVIDED PT REACHES 750ML ON I.S. COUGH CONTINUES. LUNG SOUNDS DEMINISHED IN BASES. PT REPORTS A "SWOLLEN LYMPH NODE" IN LUQ, PT POINTS TO SPLENIC AREA. ABDOMEN SOFT. CMS INTACT, STRONG PULSES FELT. PT ANTICIPATING CT SCAN. NO ADDITIONAL REQUESTS OR COMPLAINTS AT THIS TIME. CALL LIGHT WITHIN REACH.
--- NOTE | 2018-12-24 16:50 | NUR ---
PT TO CT.
--- NOTE | 2018-12-24 17:24 | NUR ---
PT RETURNED FROM CT. DINNER WARMED. PT REPORTS 3/10 PAIN THAT "IS GETTING BETTER." IV FLUIDS RESUMED. NO ADDITIONAL REQUESTS OR COMPLAINTS AT THIS TIME. CALL LIGHT WITHIN REACH.
--- NOTE | 2018-12-24 17:40 | NUR ---
CORPORATE COMMUNICATIONS SPECIALIST CALLS THIS RN TO BEDSIDE. PT STATE SHE NEEDS ANOTHER PAIN PILL. PT INFOMRED THAT PAIN PILL CAN BE TAKEN AT 1900. PT STATES SHE WAS FEELING FINE WITH 3/10 PAIN BUT NOW SHE FOUND OUT HER APPARTEMENT ISN'T LOCKED AND HER FRIEND IS GOING TO GO LOCK IT AND SHE IS STRESSED. PT STATES IF SHE REPOSITIONS SHE IS FINE. FRESH ICE PACK PROVIDED. PT STATES SHE IS FEELING "BETTER NOW". NO ADDITIONAL REQUESTS OR COMPLAINTS. CALL LIGHT WITHIN REACH.
--- NOTE | 2018-12-24 17:47 | NUR ---
PT HERE WITH L HIP FRACTURE. BEDREST AT THIS TIME. NINA CATHER DRAINING TO GRAVITY, QUANTITY SUFFICIENT. PT TOLERATING REGULAR DIET THIS SHIFT WITH GOOD APPITITE, NPO AT MIDNIGHT. 1 EPISODE OF EMESIS THIS AM WITH QUICK RESOLUTION. NEW PAIN MEDICAITONS ADDED, GIVEN FREQUENTLY FOR 3-6/[address] OF CHEST AND ABDOMENT WITH CONTRAST DONE THIS SHIFT. NICOTENE PATCH ORDERED AND IN PLACE. LORAZAPAM GIVEN FOR ANXIETY. PT TOELRATED ROOM AIR FOR MUCH OF SHIFT, NOW BACK ON 2L O2 BY NC. O2 SATURATIONS 90-94%. PT USES CALL LIGHT APPROPRIATLY.
--- NOTE | 2018-12-24 18:49 | NUR ---
PT CALL LIGHT ON. PT REQUESTS PAIN MEDICATION FOR 5/10 L HIP PAIN. SEE MAR FOR MEDICATION GIVEN. NO ADDITIONAL REQUESTS OR COMPLAINTS AT THIS TIME. CALL LIGHT WITHIN REACH.
--- NOTE | 2018-12-24 20:03 | NUR ---
RECEIVED REPORT FROM DAY SHIFT RN. PATIENT IS RESTING IN BED WITH EYES CLSOED, RR 17. CALL LIGHT IN REACH.
--- NOTE | 2018-12-24 22:11 | NUR ---
PATIENT AWOKE TO TAKE VITALS. PATIENT WAS CONFUSED ASKING ABOUT A CAT AND HOW SURGERY WENT. PATIENT REORIENTED TO SURROUNDINGS. PATIENT ASSESMENT COMPLETED. PATIENTS VITALS TAKEN AND RECORDED. PATIENT RATES PAIN AT A 6/10. PATIENT REPOSITIONED. PATIENTS INTAKE AND OUPUT RECORDED. NINA EMPTIED NINA CARE COMPLETED. PATIENT IS ON 2L VIA NC. PATIENT DENIES ANY FURTHER NEEDS. CALL LIGHT IN REACH.
--- NOTE | 2018-12-24 22:15 | NUR ---
WITH THE HELP OF POOL AMARAL WE DID A COMPLETE BED CHANGE. VITALS AND I&OS DONE AND CHARTED. NEW GOWN GIVEN. ICE TEA GIVEN PER PT REQUEST. BEDSIDE TABLE AND CALL LIGHT IN REACH.
--- NOTE | 2018-12-24 22:52 | NUR ---
PATIENT CALLED AND REQUESTED PAIN MEDICATION FOR 8/10 PAIN IN HER LEFT HIP. PATIENT GIVEN PRN PAIN MEDICATION PER ORDER. PLACED ICE PACKS X2 ON LEFT HIP. NO FURTHER NEEDS NOTED. CALL LIGHT IN REACH.
--- NOTE | 2018-12-24 23:57 | NUR ---
PATIENT IS RESTING IN BED WITH EYESC CLOSED, RR 16. CALL LIGHT IN REACH. PATIENT IS NOW NPO
--- NOTE | 2018-12-25 01:03 | NUR ---
PATIENT IS RESTING IN BED WITH EYES CLOSED, RR 15. CALL LIGHT IN REACH.
--- NOTE | 2018-12-25 02:57 | NUR ---
PATIENT IS RESTING IN BED WITH EYES CLOSED, RR 16. CALL LIGHT IN REACH.
--- NOTE | 2018-12-25 02:58 | NUR ---
PATIENT IS RESTING IN BED WITH EYES CLOSED, RR 17. CALL LIGHT IN REACH. BREATHING IS EVEN AND UNLABORED.
--- NOTE | 2018-12-25 04:50 | NUR ---
PATIENT RESTED WELL THROUGOUT THE SHIFT. PATIENT HAS BEEN NPO SINCE MIDNIGHT. PATIENT IS ON BED REST. NINA IN PLACE. PATIENT IS ON 2L VIA NC. PATIENT IS ON TELE #6, SR HR IN THE 70-80. PATIENT RECEIVED PRN PAIN MEDICATION. PATIENT HAS ICE PACKS ON HIP PRN. AAOX3. USES CALL LIGHT APPROPRIATELY.
--- NOTE | 2018-12-25 05:23 | NUR ---
PATIENTS VITALS TAKEN AND RECORDED. IV INFUSING PER ORDER. PATIENT REPORTS 6/10 PAIN. PATIENT GIVEN PRN PAIN MEDICATION PER ORDER. PATIENTS NINA EMPTIED. INTAKE AND OUPUT RECORDED. PATIENT SIGNED CONSENT. CONENT PLACED ON FROMT OF CHART. PAITENT DENIES ANY FURTHER NEEDS. CALL LIGHT IN REACH.
--- NOTE | 2018-12-25 06:44 | NUR ---
PATIENT CALLED AND REQUESTED PAIN MEDICATION. PATIENT RATES PAIN AT AN 8/10. PRN PAIN MEDICATION GIVEN PER ORDER. NO FURTHER NEEDS NOTED. CALL LIGHT IN REACH.
--- NOTE | 2018-12-25 07:00 | NUR ---
BEDSIDE HANDOFF REPORT RECEIVED FROM CRM ANALYST RN. PT SLEEPING, LEFT UNDISTURBED.
--- NOTE | 2018-12-25 08:20 | NUR ---
PT RESTING IN BED. PT WITH INCREASED PAIN AFTER BED BATH, GIVEN 1 MG IV MORPHINE, REPOSITIONED IN BED. PT ON 2L NC, LUNG SOUNDS WITH RHONCHI AND EXPIRATORY WHEEZE IN ABSES, CRUDE OIL DRIVER TO BEDSIDE FOR NEBS. CMS INTACT, PT REPORT OF NUMBNESS IN LEFT LOWER LEG AT BASELINE, PULSES PALPABLE. SCD PLACED TO RIGHT LEG. PT WITH NINA CATH, DRAINING YELLOW URINE. DISCUSSED PLAN FOR SURGERY THIS MORNING. PREPROCEDURE CHECKLIST COMPLETED. ANCEF NEW VEHICLE SALES CONSULTANT TO OR LABELED AND WITH LR ON STRAIGHT TUBING.
--- NOTE | 2018-12-25 08:37 | NUR ---
Patient was awake, surgeral wipe down was done.
--- NOTE | 2018-12-25 10:45 | NUR ---
PT STATES SHE IS AWARE OF THE SORES ON HER BUTTOCK AND BACKS AND SHE HAD THEM PRIOR TO COMING INTO THE HOSPITAL
--- NOTE | 2018-12-25 11:11 | NUR ---
MET PT IN DS, SHE HAD REQUESTED PRAYER BEFORE SURGERY TODAY. HAD PRAYER AND GAVE ENCOURAGEMENT TO PT. WILL FOLLOW NEEDED
--- NOTE | 2018-12-25 11:32 | NUR ---
Attempted to speak with pt, she has gone for surgery.
--- NOTE | 2018-12-25 12:24 | NUR ---
12/25/18 1224 Bernie Chamorro 1214: PT ARRIVES TO PACU FROM OR AWAKE AND ALERT, RESP EVEN AND UNLABORED. PT ON 2L NC, SATS GREATER THAN 88%. PT DENIES PAIN OR NAUSEA. 1219: PT CONT TO DENY PAIN. NC INCREASED TO 4 L NC TO MAINAIN SATS ABOVE 90%. 1223: PT COUGHING UP YELLOW SPUTUM, PROVIDED TISSUE. PT ABLE TO REPOPSITION SELF IN BED. HOB ELEVATED PER PT REQUEST.
--- NOTE | 2018-12-25 12:51 | HP ---
[facility] [address] [place], [place] [address] Signed ADMISSION DATE: 12/23/2018 HISTORY OF PRESENT ILLNESS: Ms. Evans is a 63-year-old female, who was doing well until yesterday. She describes a ground level fall at home, after which, she was unable to ambulate because of pain in the left hip area. She said she called the ambulance at that time, because she could not move around. She was brought to the emergency room for evaluation and x-rays showed a displaced subcapital fracture of the left hip. After consultation with the Internal Medicine Service and a general consensus, she could be cared for here. She was admitted to the Orthopedic Service. PAST MEDICAL HISTORY: She clearly has a long history of chronic pain issues, hypertension, depression, and COPD. SOCIAL HISTORY: The patient continues to smoke quite heavily up to two packs a day. REVIEW OF SYSTEMS: Otherwise unremarkable. CURRENT ALLERGIES: Amitriptyline, anti-inflammatory medicines, atenolol, and lisinopril. CURRENT MEDICATIONS: Per the Internal Medicine consultants note. PHYSICAL EXAMINATION: GENERAL: The claimant is a thin-appearing female, lying comfortably in bed, in no apparent distress. HEAD, EARS, EYES, NOSE, AND THROAT: Unremarkable. NECK: Supple. CHEST: Clear. CARDIAC: Reveals a regular rhythm. ABDOMEN: Benign. EXTREMITIES: The left leg is shortened and externally rotated. She is able to flex her toes and has good sensation in the calves and feet. Pedal pulses are intact. IMPRESSION: Subcapital fracture, left proximal femur. She has been evaluated by the Internal Medicine information resource consultant who feels she is a satisfactory candidate for treatment at our Electronically Signed By: CHRISTOPHER OSPINA MD 12/25/18 1251 PATIENT NAME: ONEAL EVANS HISTORY AND PHYSICAL DATE OF : 51 REPORT #: [id number] PHYSICIAN: CHRISTOPHER OSPINA MD PCP: LY MACIAS REPORT IS CONFIDENTIAL AND NOT TO BE RELEASED WITHOUT AUTHORIZATION [facility] [address] [place], [place] [address] Signed facility. We discussed with her the generally dismal results associated with internal fixation of subcapital fractures that are displaced and our general recommendation for shay-prosthetic replacement. She indicates she has already had a total knee and a revision total knee on the right and understands what is involved. We reviewed all the risks and complications with her and she seemed comfortable with proceeding. Again, no guarantee of outcome was implied or given. We also explained the potential risks of bleeding, infection, dislocation, additional fracture, blood clots, and/or pulmonary emboli. We also briefly reviewed the statistics relating to mortality and morbidity in 63-year-old, dec-ryce-m-day smoker with a fractured hip. After reviewing all the information, she was comfortable proceeding with an endoprosthetic replacement. MD RAND CopelandB/MODL /[id number] Copies: ~ Electronically Signed By: CHRISTOPHER OSPINA MD 12/25/18 1251 PATIENT NAME: ONEAL EVANS HISTORY AND PHYSICAL DATE OF : 51 REPORT #: [id number] PHYSICIAN: CHRISTOPHER OSPINA MD PCP: LY MACIAS REPORT IS CONFIDENTIAL AND NOT TO BE RELEASED WITHOUT AUTHORIZATION
--- NOTE | 2018-12-25 13:00 | NUR ---
PT RECEIVED FROM PACU. XRAY AT BEDSIDE FOR HIP XRAY. PT ON 2L NC, LUNG SOUNDS CLEAR IN UPPER, COARSE IN BILATERAL LOWER LOBES, DENIES SOB. PT DENIES PAIN. PT WITH DRESSING TO LEFT HIP, CDI. CMS INTACT, WITHOUT EDEMA, PULSES PALPABLE, SCDS IN PLACE. PT DENIES NAUSEA, CLEAR LIQUID TRAY ORDERED. NINA CATH IN PLACE, DRAINING YELLOW URINE. CALL LIGHT WITHIN REACH. PT DENIES OTHER NEEDS AT THIS TIME.
--- NOTE | 2018-12-25 14:05 | NUR ---
PT ATTEMPTING TO GET OOB WITHOUT ASSISTANCE. PT ASSISTED BACK TO BED, BED ALARM IN PLACE. PT EDUCATED ON FALL PREVENTION AND SAFETY AFTER SURGERY. PT DENIES OTHER NEEDS AT THIS TIME.
--- NOTE | 2018-12-25 16:39 | NUR ---
PT AGGITATED, RESTLESS IN BED. PT STATES SHE IS HAVING PAIN IN HER NECK, CHRONIC PAIN, GIVEN NORCO PER ORDER. PT WITH UNORGANIZED THOUGHTS. PT EDUCATED ON SAFETY. BED ALAMR IN PLACE.
--- NOTE | 2018-12-25 16:39 | NUR ---
Pt requesting refil on icepack. Assessed VS. Temp still slightly elevated. POOL Sanchez notified. Informed pt on importance of incentive spirometer. Began Lagrange Suicide severity rating scale , pt answered 2 questions but when asked "have you ever done anything, started to do anything, or prepared to do anything to end your life," pt did not want to answer or finish the survey. RN notified. Pt now seems a bit anxious. Will continue to monitor. Other needs met. Call light within reach.
--- NOTE | 2018-12-25 16:50 | NUR ---
DISCUSSED PT AGGITATION WITH DR. TOMPKINS, DR. TOMPKINS TO ORDER VISTARIL PER MED REC. PT ATTEMPTED TO GET OUT OF BED WITH ABDUCTOR WEDGE IN PLACE. 1:1 FOR PT SAFETY.
--- NOTE | 2018-12-25 17:48 | NUR ---
ANESTHESIA PROVIDER MARCY CALLED AND NOTIFIED OF NORCO DOSE AT 1630.
--- NOTE | 2018-12-25 18:15 | NUR ---
First introduction with pt occured post op. Pt denied pain. Vital signs were stable. Pt developed a mild fever throughout the afternoon. Tylenol was given and instructions on incentive spirometere were made. Temp back to normal limits. Pt began to get anxious and wanting to get out of bed. 1:1 initiated for safety and bed alarm set. Pt has been on 2L of O2. IV fluids infusing. Pt eating jello calmly upright in bed. No further needs requested.
--- NOTE | 2018-12-25 20:09 | NUR ---
pt resting, hob elevted, bed alarm on , on room air.
--- NOTE | 2018-12-25 21:36 | NUR ---
pt was very drowsy, needed several tactile cues and lous voice to wake up, akake now, shaky hands. Diaphoretic. O2 2L NC, tele#[address], SR. L hip mepelex dressing covered with Opsite inplace, abductor in place, scds, heel protectors. Coop with assessment when awake, took meds w puding, feed self. Fan given on requests. Tolerated fluids well. IVf infusing. Bed alarm on due to pt impulsivity and high fall risk precautions. Answered appropriately. Call light at bedside. ICe to L hip
--- NOTE | 2018-12-26 02:24 | NUR ---
AWAKENS EASILY, C/O 3/10 L LEG PAIN. MEDICATED WITH SCHEDULED TYLENOL. TOLERATING FLUIDS WELL. MOIST NON PRODUCTIVE COUGH PRESENT, O2 2L NC. L HIP DRESSING INTACT. SCDS AND HEEL PROTECTORS AND ABD PILLOW IN PLACE, F/C PATENT DRAINING LARGE AMOUNTS OF YELLOW URINE. COOP WITH REPOSITONING
--- NOTE | 2018-12-26 06:13 | NUR ---
VITALS AND I&OS DONE AND CHARTED. GARBAGES EMPTIED AND ROOM CLEANED. BEDSIDE TABLE AND CALL LIGHT IN REACH. ICE TEA GIVEN PER PT REQUEST.
--- NOTE | 2018-12-26 06:20 | NUR ---
PT HAS SLEPT MOST OF THIS SHIFT, O2 2LNC, HAD BEEN SATTING ON LOW 90'S. O2 3LNC PT WAS DESATTING TO 80%, CDB AND USAGE OF IS WAS DONE, LUNGS WITH EXP WHEEZING AUSCULTATED. RT NOTIFIED, NEB TX DONE AND SATS INCREASED TO 96% ON 3L NC. PT HAS MOIST PRODUCTIVE COUGH OF WORTHY THICK COLORED SPUTUM. HOB ELEVATED, L HIP DRESSING IN PLACE, SCDS AND HEEL PROTECTORS IN PLACE, GOOD CMS. AWAKE, ORIENTED AND FOLLOWING INSTRUCTIONS AT THIS TIME, TOLERATING LIQUIDS VERY WELL. REPOSITIONED DUEING THE NIGHT, WAS VERY COOPERATIVE. CALL LIGHT AT BEDSIDE
--- NOTE | 2018-12-26 07:39 | NUR ---
HANDOFF REPORT RECEIVED FROM INSTANT PRINTER OPERATOR RN MYRON. PT RESTING IN BED, BED ALARM IN PLACE.
--- NOTE | 2018-12-26 09:05 | OR ---
[facility] [address], [place] [address] Signed DATE OF OPERATION: 12/25/2018 SURGEON: Jet Gaspar MD PREOPERATIVE DIAGNOSIS: Displaced subcapital fracture, left hip. POSTOPERATIVE DIAGNOSIS: Displaced subcapital fracture, left hip. PROCEDURE PERFORMED: Left hip bipolar prosthesis. ANESTHESIA: Spinal with sedation. SPECIMENS AND COMPLICATIONS: There were no specimens or complications. IMPLANTS: Size #5 DePuy stem, cemented, and a 46 mm bipolar head. DESCRIPTION OF PROCEDURE: The patient was taken to the operating room. After anesthesia was induced and the airway gently supported, she was placed in the right lateral decubitus position and prepped and draped in a routine sterile fashion. A slightly curvilinear posterolateral incision was made centered over the tip of the greater trochanter. Skin was divided sharply. Subcutaneous tissue was bluntly spread. The fascia was incised in line with the skin incision. We then detached about a 3rd of the gluteus off the anterior aspect of the greater trochanter and retracted it medially. Anterior capsulectomy was then performed. We then maximally externally rotated the leg and brought the femoral neck up into the incision. We then trimmed the femoral neck with an oscillating saw. The napkin ring fragment was then removed. We then used a skid and corkscrew device to remove the femoral head and sized to 46 mm. We then trialed a 46 mm head and quite happy with the alignment, position, fit, and stability. We then prepared the femoral shaft with standard reamers and broaches. The size #5 was quite snug. We reduced the hip with a 46 mm bipolar and again we were happy with leg length stability and range of motion. We then removed all of the trials. Because the patient is a 63 and a heavy smoker with Electronically Signed By: JET GASPAR MD 12/26/18 0905 PATIENT NAME: ONEAL LLAMAS OPERATIVE REPORT DATE OF : 51 REPORT #: [id number] PHYSICIAN: JET GASPAR MD PCP: LY MACIAS REPORT IS CONFIDENTIAL AND NOT TO BE RELEASED WITHOUT AUTHORIZATION [facility] [address], [place] [address] Signed osteoporosis, we elected to go with a cemented prosthesis. We placed a cement restrictor at the 14 cm chucho and then cleaned out the canal. Once this had been accomplished, we cemented the femoral stem in place and allowed the cement to cure. Marginal cement was then removed and the bipolar segment was placed on the Torres taper. We then reduced the hip and again we were happy with the alignment, position, and stability. The wound was gently irrigated. We did inject her with the " " and then routine closure was accomplished. Sterile dressing was applied. She was awakened and taken to recovery room, where she arrived in stable condition. Counts were correct and antibiotic protocols were followed. Jet Gaspar MD WFB/MODL /[id number] Copies: ~ Electronically Signed By: JET GASPAR MD 12/26/18 0905 PATIENT NAME: ONEAL LLAMAS OPERATIVE REPORT DATE OF : 51 REPORT #: [id number] PHYSICIAN: JET GASPAR MD PCP: LY MACIAS REPORT IS CONFIDENTIAL AND NOT TO BE RELEASED WITHOUT AUTHORIZATION
--- NOTE | 2018-12-26 09:37 | NUR ---
PT SALINE LOCKED PER ORDER.
--- NOTE | 2018-12-26 09:51 | NUR ---
Per MD order, khan cath removed. Pt tolerated well. Educated on using the call light and asking for assistance when she needs restroom. Colace PO given in repalce of Miralax. VSS. No further needs at this moment. Call light within reach.
--- NOTE | 2018-12-26 10:20 | NUR ---
PT STATES SHE IS FEELING ANXIOUS, PRN VISTARIL GIVEN. PT REPORT OF CHEST PAIN WITH ANXIETY, STATES PAIN FEELS SIMILAR TO PAIN SHE HAS BEEN HAVING FOR THE PAST WEEK, MD NOTIFIED OF CHEST PAIN, NO NEW ORDERS AT THIS TIME.
--- NOTE | 2018-12-26 10:50 | NUR ---
PT CONTINUES TO FEEL ANXIOUS, REQUESTING ATIVAN. 0.5 MG PO ATIVAN GIVEN PER ORDER. PT ENCOURAGED TO TAKE DEEP BREATHS. PT DENIES OTHER NEEDS AT THIS TIME.
--- NOTE | 2018-12-26 11:00 | NUR ---
SPOKE WITH PATIENT REGARDING NEEDS FOR DISCHARGE. DISCUSSED SHE MAY NEED SOME JAIL CARE AND REHAB BEFORE RETURNING HOME. PATIENT STATES SHE IS WORRIED ABOUT RETURNING HOME ALONE. WE DISCUSSED POSSIBLE TRANSITIONAL CARE PROGRAM WHEN SHE IS READY FOR DISCHARGE FROM ACUTE NEEDS. SHE IS VERY INTERESTED IN THIS, BROCHURE GIVEN. DISCUSSED INSURANCE COVERAGE, PROGRAM IN GENERAL. QUESTIONS ANSWERED. SHE UNDERSTANDS THERAPY WILL CONTINUE AND BASED ON HER NEEDS, WHAT WILL BE SUGGESTED. WILL CONTINUE TO FOLLOW.
--- NOTE | 2018-12-26 11:43 | NUR ---
Pt requesting help to the commode. 2 person assist needed. Pt painful during transfer, but tolerated well. Positioned back in bed. Bed bath performed. SED's placed back on. Foam pad placed between legs. Second fan given upon request. Pt requesting more pain medication. Will talk with Laura LANZA. Pt currently up right in bed eating lunch. No further needs at this moment. Call light within reach.
--- NOTE | 2018-12-26 14:45 | NUR ---
PT WITH FEVER, TEMP 102.8 ORAL. PT WITH CHILLS. CALL PLACED TO DR. OSPINA, MESSAGE LEFT FOR RETURN CALL. DR. TOMPKINS NOTIFIED, ORDER FOR A U/A, BLOOD CULTURES AND TO START ROCEPHIN 1GM QDAILY AFTER CULTURES HAVE BEEN DRAWN. DR. OSPINA RETURNED CALL, UPDATED ON ORDERS FROM DR. TOMPKINS, DR. OSPINA ASKED IF INTENSIVE CARE UNIT REGISTERED NURSE WAS WORKING WITH PT AND CONFIRMED THAT THEY HAVE BEEN DOING NEBS AND WORKING WITH HER Q4H WITH NEBS, NO OTHER ORDERS AT THIS TIME.
--- NOTE | 2018-12-26 16:05 | NUR ---
DR. TOMPKINS NOTIFIED OF INCREASED CONFUSION AND AGGITATION, TELEPHONE ORDER FOR SINGLE VIEW CHEST XRAY.
--- NOTE | 2018-12-26 16:08 | NUR ---
CALL TO DR. OSPINA TO UPDATE THAT PATIENT CONTINUES TO BE MORE CONFUSED, HAS LACTIC ACID AND CHEST X-RAY PENDING.
--- NOTE | 2018-12-26 18:09 | NUR ---
PT WITH FEVER AND INCREASED AGGITATION THIS AFTERNOON AND EVENING, BLOOD CULTURES, URINE SAMPLE, CHEST XRAY COMPLETED. PT ON 2L NC, LUNG SOUNDS CLEAR AND COARSE, PRODUCTIVE COUGH, SCHEDULED NEBS. PT TOLERATING 2G NA DIET, GOOD APPETITE, BOWEL TONES ACTIVE. PT UP WITH 2PA, IMPULSIVE AND DOES NOT FOLLOW INSTRUCTIONS WELL, STAND PIVOT. DRESSING TO LEFT HIP CDI. CMS INTACT, WITHOUT EDEMA, SCDS IN PLACE. PAIN WELL CONTROLLED WITH 10 MG OXYCODONE PRN, SCHEDULED TYLENOL AND 4 MG DILAUDID FOR BREAKTHROUGH PAIN. PT VOIDING QS.
--- NOTE | 2018-12-26 19:57 | NUR ---
PATIENT RESTING IN BED QUIETLY WITH NOTHING NEEDED AT THIS TIME. ON 2L/NC AND CALL LIGHT IN REACH PM REPORT HAS BEEN GIVEN TO THIS RN.
--- NOTE | 2018-12-26 20:05 | NUR ---
PILOT CAN ROUTER ROUNDING NOTE. PT UTILIZES CALL LIGHT FOR ASSISTANCE PUTTING HER HEAD DOWN. PT DENIES FURTHER QUESTIONS OR CONCERNS AT THIS TIME. CALL LIGHT IN REACH, ROOM IN VIEW OF RN STATION.
--- NOTE | 2018-12-26 20:09 | NUR ---
took vitals for RN prior to [facility] meds, I&Os are in,
--- NOTE | 2018-12-26 20:44 | NUR ---
2PA PT TO SBC C\ FWW, DISCONNECTED/RECONNECTED SCDS, REMOVED/APPLIED PT LEG PILLOW WEDGE, ASKED IF THEY NEEDED MORE TEA OR IF THEY NEED ANYTHING ELSE
--- NOTE | 2018-12-26 21:18 | NUR ---
GOT PT A NEW ICE PACK
--- NOTE | 2018-12-26 21:19 | NUR ---
PATIENT WAS GIVEN TYLENOL 650MG PO FOR PAIN CONTINUING QAT 08/27, PLUS MEDS FOR ANXIETY TO HELP HER SLEEP AT HER REQUEST ALONG WITH PM MEDS. PATIENT REMAINS WITH LEG WEDGE IN PLACE AND HAS BEEN GETTING UP TO THE BEDSIDE COMMODE WITH 2 PERSON ASSIST. LEFT HIP DRESSING CDI. PATIENT HAD NO OTHER NEEDS AT THIS TIME. CALL LIGHT IN REACH. PULSE OX IS ON ARE SCD'S.
--- NOTE | 2018-12-26 23:30 | NUR ---
PATIENT RESTING QUIETLY IN SEMI-FOWLERS POSITION WITH WEDGE BETWENN LEGS AND SCD'S ON. PATIENT'S EYES ARE CLOSED, RESPIRATIONS ARE REGULAR AND EVEN, CALL LIGHT IS IN REACH.
--- NOTE | 2018-12-27 01:30 | NUR ---
PATIENT RESTING QUIETLY, RESPIRATIONS RGULAR AND EVEN, DOES NOT APPEAR TO BE IN DISCOMFORT, EYES CLOSED, CALL LIGHT IN REACH.
--- NOTE | 2018-12-27 02:36 | NUR ---
PATIENT UP WITH 2PA WITH NEW CAR INSPECTOR'S TO THE BESIDE COMMODE AT THIS TIME. PATINT JUST HAD HER 650MG OF PO TYLENOL, BUT HER PAIN IS 7/10 AFTER USING THE COMMODE AND I WILL GET HER SOME STRONGER PAIN MEDICATION AT THIS TIME. CALL LIGHT IN REACH.
--- NOTE | 2018-12-27 02:45 | NUR ---
PATIENT GIVEN 8MG PO DILAUDID AND PATIENT IS GOING TO TRY AND GO BACK TO SLEEP. CALL LIGHT IN REACH.
--- NOTE | 2018-12-27 03:40 | NUR ---
Patient was resting, call light in reach , fresh water given no othere needs at this time.
--- NOTE | 2018-12-27 03:49 | NUR ---
PATIENT RESTING QUIETLY, RESPIRATIONS REGULAR AND EVEN, EYES CLOSED, NO SIGN OF DISCOMFORT AT THIS TIME. CALL LIGHT IN REACH.
--- NOTE | 2018-12-27 05:53 | NUR ---
PATIENT HAS RESTED WELL MOST OF THE NIGHT. WAS GIVEN OXYCODONE AT THE BEGINING OF THE SHIFT AND THEN USED THE RESTROOM AND WENT TO SLEEP AFTER SHE HAD SCHEDULED TYLENOL AND MEDS REQUESTED FOR SLEEP. AT THE TIME SHE GOT HER SECOND DOSE OF TYLENOL SHE GOT UP AGAIN WITH 2PA TO THE BEDSIDE COMMODE AND WAS ALSO GIVEN DILAUDID 8MG PO FOR 7/10 HIP PAIN. PATIENT HAD REMAINED RESTING QUIETLY AT ON HER 2L/NC WITH A SAT OF 92% AND HR OF 80 ON PULSE OX, PATIENT JUST UP TO THE BATHROOM AGAIN AND SHE SCRATCHED A SPOT ON HER LEFT BUTTOCK AND MADE IT BLEED AND AN ALLEVYN WAS PLACED OVER IT. PATIENT STARTED TO HAVE PAIN AGIAN 2/ AFTER BEING UP TO THE PBATHROOM AND SAID,"I WANT TO GET AHEAD OF THE PAIN," AND WAS GIVEN 10MG OXYCODONE AND IS NOW RESTING QUIETLY. CALL LIGHT IN REACH.
--- NOTE | 2018-12-27 06:29 | NUR ---
pts c.pox was going off, i checked to see what was going on and her NC was off. it was reapplied and her o2 sats went back up.
--- NOTE | 2018-12-27 07:05 | NUR ---
BEDSIDE HANDOFF REPORT RECEIVED FROM TRAVEL ACCOMMODATIONS RATER RN. PT SLEEPING, LEFT UNDISTURBED. O2 SATS 95% ON 2L NC. BED ALARM IN PLACE.
--- NOTE | 2018-12-27 08:15 | NUR ---
PT RESTING IN BED, BREAKFAST AT BEDSIDE. PT ON 4L NC 02 SATS 95%, WEANED TO 2L O2 SATS 91%, LUNG SOUNDS COARSE WITH RHONCHI AND EXPIRATORY WHEEZE. PT RATING PAIN 2/10, GIVEN SCHEDULED TYLENOL AND DISCUSSED PLAN FOR PAIN MANAGEMENT. CMS INTACT, WITHOUT EDEMA, PULSES PALPABLE, SCDS IN PLACE. DRESSING TO LEFT HIP CDI. IV SALINE LOCKED. MEDICATIONS GIVEN PER EMAR. PT DENIES OTHER NEEDS AT THIS TIME. BED ALARM IN PLACE.
--- NOTE | 2018-12-27 10:13 | NUR ---
PT GIVEN 10 MG OXYCODONE FOR PAIN 05/28 AND TO WORK WITH P.T.
--- NOTE | 2018-12-27 13:13 | NUR ---
PT REQUESTING PAIN MEDICATION, AGREEABLE TO OXYCODONE AT 1400 WITH TYLENOL. PROVIDED ICE PACK TO LEFT HIP. PT DENIES OTHER NEEDS AT THIS TIME.
--- NOTE | 2018-12-27 13:33 | NUR ---
PT UP WITH 1PA TO BATHROOM, VOIDED AND PERFORMED DENTURE CARE. PT ASSISTED BACK TO BED. PT DENIES OTHER NEEDS AT THIS TIME.
--- NOTE | 2018-12-27 16:53 | NUR ---
PATIENT DID MOST OF HER SHOWER ALL I HELPED WITH WAS HER LEGS AND FEET AND HER BACK.
--- NOTE | 2018-12-27 18:16 | NUR ---
PT WITH GOOD PROGRESSION TODAY, PT WAS ABLE TO WALK WITH 1PA IN COTTER WITH P.T. AND NURSING STAFF. PT ON 2L NC, SCHEDULED NEBS, I/S, WEAN O2 ABLE. PAIN WELL CONTROLLED WITH OXYCODONE AND TYLENOL. CMS INTACT, WITHOUT EDEMA. LEFT HIP DRESSING CDI. PT ALERT AND ORIENTED THROUGHOUT SHIFT.
--- NOTE | 2018-12-27 20:10 | NUR ---
JAY RONQUILLO AND THIS WEAPONS DESIGNER HELPED PATIENT USED THE COMMODE. PATIENT IS BACK IN BED. V/S AND I&O TAKEN AND CHARTED. CALL LIGHT IN REACH.
--- NOTE | 2018-12-27 20:25 | NUR ---
LOCKSTITCH LINING MAKER ROUNDING NOTE. PT RESTING IN BED, REQUESTS SCDS. PLACED BY THIS ROOF PROMENADE TILE SETTER. PT INQUIRES ABOUT MEDICATION, PRIMARY RN ENTERING ROOM THIS ROOF PROMENADE TILE SETTER EXITING. QUESTIONS AND CONCERNS DENIED. CALL LIGHT IN REACH, BED ALARM ACTIVE. ROOM IN VIEW OF RN STATION.
--- NOTE | 2018-12-27 21:56 | NUR ---
PATIENT GIVEN EVENING MEDS AT 2037. PATIENT WAS STILL HAVING 6/10 PAIN AND GOT 10MG OXYCODONE AND SHE WANTED SOME MEDS TO HELP HER SLEEP. PATIENT IS STILL AWAKE AT THIS TIME AND JUST CALLED TO USE THE RESTROOM AND SHIMA NGUYEN HAS HELPED HER TO THE BEDSIDE COMMODE AND BACK TO BED WITH HELP FROM SHIV THE CHARGE NURSE. CALL LIGHT IN REACH.
--- NOTE | 2018-12-27 22:12 | NUR ---
1-2PA PT ONTO BSC, ENCOURAGED PT TO WALK THE TOILET, GOT PT BK TO BED, NOTHING ELSE NEED BY THE PT, LEFT PT TO REST C\ BS TABLE AND CALL LIGHT IN REACH
--- NOTE | 2018-12-27 23:20 | NUR ---
PATIENT RESTING IN SEMI-FOWLERS POSITION ON 2L/NS, RESPIRATIONS REGULAR AND EVEN, CALL LIGHT IN REACH EYES CLOSED. PATIENT CAN BE SEEN FROM THE NURSES DESK.
--- NOTE | 2018-12-28 01:11 | NUR ---
PATIENT RESTING QUIETLY IN SEMI-FOWLERS POSITION, EYES CLOSED RESPIRATIONS EVEN AND REGULAR ON 2L/NC. CALL LIGHT IN REACH. EYES CLOSED.
--- NOTE | 2018-12-28 01:24 | NUR ---
2-3PA C/ CLIFF TO BSC, HELPED APPLY SLING TO PT AND ATTACH TO CLIFF HOOKS, OPERATED THE CLIFF BY LIFTING PT TO A STANDING POSITON, LOWERED ONTO BSC, THEN BK TO BED, UNHOOKED SLING/REMOVED SLING FROM PT, LEFT PT TO REST C\ BS TABLE/CALL LIGHT
--- NOTE | 2018-12-28 03:26 | NUR ---
PATIENT RESTING QUIETLY, EYES CLOSED, SATS 92% ON 2L/NC, REPIRATIONS REGULAR. EYES CLOSED.
--- NOTE | 2018-12-28 04:54 | NUR ---
PATIENT HAS RESTED THE SECOND HALF OF THE NIGHT HAD TROUBLE FALLING ASLEEP THE FIRST HALF,BUT FINALLY DID FALL ASLEEP LATER AND THE SECOND SCHEDULED TYLENOL DOSE WAS SKIPPED. PATIENT CONTINUES TO REST QUIETLY AT THIS TIME ON 2L/NC AND RESPIRATIONS ARE REGULAR AND EVEN SATS HAVE BEEN 91-92%. CALL LIGHT IN REACH.
--- NOTE | 2018-12-28 07:43 | NUR ---
0655: Bedside report recieved from Kenroy LANZA. Pt gumarog in her bed and she states that she is doing okay at this time. Call light within reach.
--- NOTE | 2018-12-28 08:46 | NUR ---
PT UP TO HER CHAIR, ALARM IS ON. SHE STATES HER PAIN IS AN 8/10 AND SHE WAS MEDICATED ORDERED, SEE EMAR. CALL OSPINA WITHIN REACH.
--- NOTE | 2018-12-28 09:19 | NUR ---
PATIENT IS UP IN CHAIR ALREADY ATE BREAKFAST. CHANGED BED LINENS.
--- NOTE | 2018-12-28 10:30 | NUR ---
Pt states her pain is an 8/10 and with talking with her she thinks her hip is getting stiff from not moving much. Pt taken for a walk and physical therapy took over while she was on her walk. Will continue to monitor.
--- NOTE | 2018-12-28 10:57 | NUR ---
Pt now back in her chair following working with physical therapy. Her sat is 94% on 2l at this time. She appears in no physical distress and she did not say anything about pain.
--- NOTE | 2018-12-28 13:41 | NUR ---
DR TOMPKINS NOTIFIED OF THE REDNESS ON THE PT'S LEFT THIGH. THE AREA WAS OUTLINED AROUND THE REDNESS. DR OSPINA WILL BE CALLED AND NOTIFIED.
--- NOTE | 2018-12-28 13:45 | NUR ---
Dr Gaspar was called and a message left to update him on the redness noted around the surgical dressing with noted heat and that her temp is 99.8.
--- NOTE | 2018-12-28 14:22 | NUR ---
DR OSPINA CALLED BACK AND HE WAS UPDATED TO THE PT'S STATUS. NO NEW ORDERS GIVEN, WILL CONTINUE TO MONITOR. LABS WERE ORDERED BY DR TOMPKINS.
--- NOTE | 2018-12-28 14:59 | NUR ---
Pt's left hip redness appears unchanged. Pt rates her left hip pain at a 7 and she was medicated as ordered, see emar.
--- NOTE | 2018-12-28 15:47 | NUR ---
PT SITTING UP AT THE BEDSIDE EATING A SNACK. HER LEFT HIP APPEARS UNCHANGED. HER PAIN PER THE FACE SCALE IS A 2/10.
--- NOTE | 2018-12-28 16:01 | NUR ---
Pt up ambulating in the halls with the aide at this time.
--- NOTE | 2018-12-28 16:43 | NUR ---
PT SITTING IN HER CHAIR FIDGETING WITH THINGS AND MOVING HER LEGS AROUND. SHE WAS ASKED HOW SHE IS DOING SHE STATES, "I DON'T KNOW". SHE THEN STATES SHE FEELS THAT SHE IS HAVING SOME ANXIETY. PT MEDICATED ORDERED, SEE EMAR.
--- NOTE | 2018-12-28 17:41 | NUR ---
Sat 88%, o2 increased to 3l and sat increased into the low 90's.
--- NOTE | 2018-12-28 17:49 | NUR ---
Pt's incision site appears unchanged.
--- NOTE | 2018-12-28 17:53 | NUR ---
PT REQUESTED A BREATHING TREATMENT WHICH RT WAS CALLED AND NOTIFIED. SAT IS NOW 93% ON 3L AND HER LUNGS SOUNDS ARE DECREASED AND TIGHT ON THE RIGHT.
--- NOTE | 2018-12-28 18:24 | NUR ---
Pt resting in her bed watching tv. She states that she is doing "okay".
--- NOTE | 2018-12-28 19:06 | NUR ---
PATIENT IS IN BED WITH BED ALARM ON.
--- NOTE | 2018-12-28 19:15 | NUR ---
SHIFT REPORT RECEIVED FROM DAYSMTFT POOL MORIN AT BEDSIDE. PT AWAKE AND RESTING IN BED. NO DISTRESS NOTED, PT ON CPOX. 3LNC IN PLACE, O2 SAT AND HR WNL. PT DENIES ADDITIONAL NEEDS, WHITE BOARD UPDATED. CALL LIGHT IN REACH.
--- NOTE | 2018-12-28 20:10 | NUR ---
1 PA USING WALKER TO THE BATHROOM AND BACK TO BED. ICE TEA GIVEN. CALL LIGHT IN REACH.
--- NOTE | 2018-12-28 20:40 | NUR ---
VSS AND I&O'S COLLECTED. PT RATES PAIN 5/10, VERBALIZES DESIRE FOR PO DILAUDID. DISCUSSED WITH PT THAT DILAUDID IS NOT YET AVAILABLE, PT VERBALIZED UNDERSTANDING. NO SIGNS OF DISTRESS NOTED, PT INTERACTING AND LAUGHING WITH NURSING STAFF AT THIS TIME. SKIN WARM TO THE TOUCH AT LEFT HIP, REDDNESS WITHIN OUTLINED AREA, NO CHANGES FROM SHIFT REPORT. WILL MONITOR. ICE TO LEFT HIP. MEPILEX AND OPSITE REMAINS IN PLACE. DISCUSSED WITH PT REGARDING HIP PRECAUTIONS, PT VERBALIZED UNDERSTANDING. NO FURTHER NEEDS, CALL LIGHT IN REACH.
--- NOTE | 2018-12-28 22:26 | NUR ---
PT REPORTING 7-8/10 PAIN, PRN DILAUDID ADMINISTERED PER PT REQUEST. VISITOR IN ROOM, PT DENIES ADDITIONAL NEEDS, CALL LIGHT IN REACH. ORAL TEMP RESULT OF 99.3. SCD'S IN PLACE, PT REFUSES ABDUCTOR, BUT AGREES TO PLACE PILLOWS BETWEEN BLE.
--- NOTE | 2018-12-29 00:56 | NUR ---
PT RESTING IN BED, EYES CLOSED, RR WNL. PT HAS 3LNC IN PLACE. O2 SAT AND HR WNL. NO DISTRESS NOTED. SCD'S ALSO IN PLACE. CALL LIGHT IN REACH.
--- NOTE | 2018-12-29 02:23 | NUR ---
SCHEDULED TYLENOL ADMINISTERED. PT DENIES PAIN AT THIS TIME. ASSESSMENT COMPLETE, NO NEW CHANGES OR CONCERNS. PT DROWSY, BUT AWAKENS EASILY FOR ASSESSMENT. CPOX IN PLACE, PT ON 3LNC. O2 SAT AND HR WNL. NO CHANGES FROM LAST ASSESSMENT REGARDING REDDNESS AND DRESSING TO LEFT HIP. NO FURTHER NEEDS, CALL LIGHT IN REACH. SCD'S REMAIN ON AND PILLOW IN PLACE BETWEEN BLE.
--- NOTE | 2018-12-29 05:32 | NUR ---
I&O'S RECORDED. VSS, PT ON 3LNC, CPOX IN PLACE. PT UP TO VOID, HIP PRECAUTIONS IN PLACE. PT BACK IN BED, PILLOW BETWEEN BLE, SCD'S ON. ROOM TIDIED, BOARD UPDATED. BED ALARM ON, CALL LIGHT IN REACH, NO FURTHER NEEDS.
--- NOTE | 2018-12-29 07:28 | NUR ---
REPORT RECEIVD FROM POOL PATEL. PT AWAKE AND UP TO RESTROOM WITH FWW AND 1 ASSIST. PT ASKED WHEN HER NEXT PAIN MED WAS, WILL CHECK. STATES SHE SLEPT OK. CPOX AND O2 IN PLACE.
--- NOTE | 2018-12-29 07:56 | NUR ---
PT GIVEN MORNING MEDS AND OXY. PT EATING BREAKFAST ATT. DENIES CONCNERRAE.
--- NOTE | 2018-12-29 08:02 | NUR ---
PATIENT SITTING UP IN BED, POOL EDUARDO AT BEDSIDE. PATIENT PERFORMED AM CARE AND IS EATING BREAKFAST AT THIS TIME. PATIENT STATES SHE SLEPT WELL LAST NIGHT. PATIENT CALL LIGHT IN REACH. RN IN ROOM. NO OTHER NEEDS AT THIS TIME.
--- NOTE | 2018-12-29 09:17 | NUR ---
PATIENT RESTING IN BEDSIDE RECLINER, CALL LIGHT IN REACH. PATIENT AMBULATED HALLWAYS WITH PATRICK MIX. LINENS CHANGED AND READJUSTED NEEDED. NO OTHER NEEDS AT THIS TIME.
--- NOTE | 2018-12-29 09:33 | NUR ---
PT NOW SITTING UP IN CHAIR. APPEARS TO BE TOELRATING WELL.
--- NOTE | 2018-12-29 10:18 | NUR ---
PT UP TO RESTROOM AND STATES PAIN IS PRETTY HIGH WHILE AMBULATING. GIVEN A DILAUDID FOR PAIN. PT UP IN CHAIR DOING FOOT EXERCISES.
--- NOTE | 2018-12-29 10:29 | NUR ---
DR OSPINA IN ROOM. REMOVED BANDAGE AND TOLD PT THAT SHE COULD SHOWER IF SHE WISHED. INCISION WELL APPROX. AND DRY.
--- NOTE | 2018-12-29 11:48 | NUR ---
PT HAS VISITOR IN ROOM.
--- NOTE | 2018-12-29 12:27 | NUR ---
PT IS ALERT, ORIENTED AND SITTING IN CHAIR. PT SHARED WITH ME SHE IS UP AND WALKING WITH P.T.. IT HURTS, BUT SHE THINKS THE PAIN IS JUST FROM THE HEALING PROCESS. HER SIMULATION DEVELOPER HAD CHECKED ON HER. SHE BEGAN TO RECITE SCRIPTURE THAT PT HAS MEMORIZED THAT HAS BEEN A SOURCE OF STRENGTH. PT ACCEPTED A P.DESTINEEWL, BIBLE AND G.POST. WILL CONTINUE TO FOLLOW NEEDED
--- NOTE | 2018-12-29 13:20 | NUR ---
PATIENT RESTING IN BED, CALL LIGHT WITHIN REACH. FRESH ICE FOR INCISION SITE. PATIENT IS CONCERNED WITH JASMEET IN HER INCISION AND CONSTANTLY RUBS THEM. PATIENT ENCOURAGED NOT TO TOUCH INCISION SITE WITH DIRTY HANDS. RN NOTIFIED. NO OTHER NEEDS AT THIS TIME.
--- NOTE | 2018-12-29 14:04 | NUR ---
PT CALLED ASKING FOR SOMETHING FOR ANXIETY. GIVEN SCHED MEDS AND ATIVAN.
--- NOTE | 2018-12-29 17:18 | NUR ---
PT REMAINS IN CHAIR FOR DINNER. GIVEN SCHED AND PRN MEDS. TALKED TO PT AGAIN ABOUT SMOKING CESSATION. PT REALLY HOPES TO STOP.
--- NOTE | 2018-12-29 17:55 | NUR ---
PATIENT AMBULATED TO BATHROOM AND BACK TO BED. PATIENT SITTING UP IN BED, CALL LIGHT IN REACH. NO OTHER NEEDS AT THIS TIME.
--- NOTE | 2018-12-29 18:09 | NUR ---
PT DID WELL WITH PHYS THERAPY. GOOD APPETITE. TURNED DOWN O2 TO 1LNC, REMAINS IN 90'S. IMPULSIVE, ESPECIALLY WHEN IN CHAIR. ALARMS ON FOR SAFTEY.
--- NOTE | 2018-12-29 19:20 | NUR ---
SHIFT REPORT RECIEVED FROM JAYCE LANZA. PT RESTING IN CHAIR, O2 NC 1L. NO NEEDS AT THIS TIME. CALL LIGHT IN REACH.
--- NOTE | 2018-12-29 20:16 | NUR ---
PT RESTING IN BED, WATCHING TV. SCHEDULED MEDS AND PRN PAIN MED PROVIDED. CPOX 92%. INCISION CDI, WNL. CMS INTACT IN LRE. ASSESSMENT COMPLETED. NO OTHER NEEDS AT THIS TIME. CALL LIGHT IN REACH.
--- NOTE | 2018-12-29 20:16 | NUR ---
PT RESTING IN BED, WATCHING TV. SCHEDULED MEDS AND PRN PAIN MED PROVIDED. CPOX 92%. INCISION CDI, WNL. CMS INTACT IN RLE. ASSESSMENT COMPLETED. NO OTHER NEEDS AT THIS TIME. CALL LIGHT IN REACH.
--- NOTE | 2018-12-29 20:32 | NUR ---
CALL LIGHT ANSWERED. ASSISTED pt WITH BEDDING. NO ADDITIONAL REQUESTS. CALL LIGHT, PERSONAL SUPPLIES IN REACH.
--- NOTE | 2018-12-30 00:10 | NUR ---
PT STATES PAIN 5/10. PRN PAIN MED PROVIDED. NO OTHER NEEDS AT THIS TIME. CALL LIGHT IN REACH.
--- NOTE | 2018-12-30 01:31 | NUR ---
PT CPOX ALARMING. NC RE-ADJUSTED IN NOSE. CPOX 90% 1L NC. NO OTHER NEEDS. CALL LIGHT IN REACH.
--- NOTE | 2018-12-30 02:09 | NUR ---
PT PROVIDED SCHEDULED MED. ASSESSMENT COMPLETED. PAIN 04/27. ND DENIES NEED FOR PAIN INTERVENTION. CPOX 85% ON 1L NC, PT MOVED TO 2L NC, 90%. NO OTHER NEEDS AT THIS TIME. CALL LIGHT IN REACH.
[2018-12-30] MEDS ORDERED: XARELTO10 MG PO (03:39)
--- NOTE | 2018-12-30 04:26 | NUR ---
PT RESTING IN ROOM, EYES CLOSED. RR 20, EVEN, UNLABORED. CPOX 90%, 2L NC. CALL LIGHT IN REACH.
--- NOTE | 2018-12-30 05:02 | NUR ---
PT SLEPT ON AND OFF THIS SHIFT. PAIN MANAGED WITH PRN PAIN MEDS. 1P SBA, FWW. SPO2 TRENDING IN LOW 90s ON 2L NC WHILE SLEEPING. PT TOLERATED HEEL PROTECTORS, SCDs, CPOX, AND NC WELL. IV CDI, WNL, FLUSHED WELL. INCISION SITE, CDI, REDNESS TO LEFT HIP THAT IS OUTLINED. REDNESS DID NOT PROGRESS OUTSIDE THE LINE THIS SHIFT. ICE PACKS PROVIDED TO LEFT HIP. VSS. A&O X3.
--- NOTE | 2018-12-30 05:43 | NUR ---
PT STATES SHE HAS 9/10 PAIN IN LEFT HIP. PRN PAIN MED PROVIDED. ICE PACK PROVIDED. NO OTHER NEEDS. CALL LIGHT IN REACH.
== END 2018-12-30 06:59 | disposition swing bed (61) | DRG 470 ==
LOC: ED 14:06 → MS 14:08 → ED 14:08 → MS 18:29
PROVIDERS: ADMIT Orthopaedic Surgery
PROC: 3E0T3BZ Introduction of Anesthetic Agent into Peripheral Nerves and Plexi, Percutaneous Approach (ICD-10-PCS; 2018-12-25)
PROC: 3E0T33Z Introduction of Anti-inflammatory into Peripheral Nerves and Plexi, Percutaneous Approach (ICD-10-PCS; 2018-12-25)
PROC: 0SRS0J9 Replacement of Left Hip Joint, Femoral Surface with Synthetic Substitute, Cemented, Open Approach (ICD-10-PCS; principal; 2018-12-25 10:30)
DX: M80.052A Age-related osteoporosis with current pathological fracture, left femur, initial encounter for fracture (principal); F11.20 Opioid dependence, uncomplicated; J96.11 Chronic respiratory failure with hypoxia; G89.18 Other acute postprocedural pain; F17.210 Nicotine dependence, cigarettes, uncomplicated; G89.4 Chronic pain syndrome; R74.8 Abnormal levels of other serum enzymes; I10 Essential (primary) hypertension; R91.8 Other nonspecific abnormal finding of lung field; F32.9 Major depressive disorder, single episode, unspecified; J44.9 Chronic obstructive pulmonary disease, unspecified; K21.9 Gastro-esophageal reflux disease without esophagitis; Z79.51 Long term (current) use of inhaled steroids; Z88.8 Allergy status to other drugs, medicaments and biological substances; Z79.899 Other long term (current) drug therapy
CPT/HCPCS: 01210; 36415; 64450; 71045; 71260; 72170; 73501; 73502; 74177; 76942; 80048; 80053; 80074; 80076; 81001; 82306; 82977; 83605; 83615; 83735; 83880; 84484; 85025; 85610; 85651; 86255; 93005; 93010; 94640; 94760; 94762; 96365; 96375; 96376; 97110; 97116; 97162; 97530; 99284-25; 99406; C1713; C1776; J0690; J0696; J1100; J2250; J2270; J2274; J2405; J2704; J2795; J3475; J7121; Q0177; Q9967

== ENCOUNTER 2018-12-30 07:00 | Inpatient (IN) | payer MEDICARE, OTHER ==
[~2018-12-30] VITALS: Ht 165.1 cm; Wt 58.1 kg
--- OUTSIDE RECORDS SUMMARY | ~2018-12-30 | XMS | Encounter Summary ---
Demographics + + + | Address | [address] | | | [place] [address] | + + + | Home Phone | | + + + | Preferred Language | Unknown | + + + | Marital Status | Single | + + + | Samaritan Affiliation | Unknown | + + + | Race | White | + + + | Ethnic Group | Not or | + + + Author + + + | Author | [facility] | + + + | Organization | [facility] | + + + | Address | Unknown | + + + | Phone | Unavailable | + + + Support + + + + + | Name | Relationship | Address | Phone | + + + + + | Zaida Putnam | ECON | [address] | | | | | [place], | | | | | [place] [address] | | + + + + + Care Team Providers + +------+ + | Care Crop Setting Out Machine Operator Name | Role | Phone | + +------+ + PCP | Unavailable | + +------+ + Encounter Details +--------+ + + + + | Date | Type | Department | Care Team | Description | +--------+ + + + + | 10/31/ | ED Progress | [facility] | [...]
--- OUTSIDE RECORDS SUMMARY | ~2018-12-30 | XMS | Encounter Summary ---
Demographics + + + | Address | [address] | | | [place] [address] | + + + | Home Phone | | + + + | Preferred Language | Unknown | + + + | Marital Status | Single | + + + | Congregational Affiliation | Unknown | + + + | Race | Unknown | + + + | Ethnic Group | Unknown | + + + Author + + + | Author | [facility] | | | and [place] | + + + | Organization | [facility] | | | and [place] [...] Team Providers + +------+ + | Care Process Laboratory Specialist Name | Role | Phone | + +------+ + | Timothy Elmore | PCP | | + +------+ + Encounter Details +--------+ + + + + | Date | Type | Department | Care Team | Description | +--------+ + + + + | 12/21/ | Orders Only | [facility] | Joe Flores, | Loss of appetite; | | 2014 | | [facility] | [address] | Weight loss; | | | | ENDOCRINOLOGY [address] | [address] | Pancreatic | | | | [address] | [place] [address] | insufficiency; | | | | [address] [place] | [phone] | Diarrhea | | | | [address] | | | | | | [phone] | | | +--------+ + + + [...] | + +--------+ + + + | CORTISOL, AM | Routin | 12/21/2014 | Loss of appetite | Results for this | | | e | 8:01 AM | Weight loss | procedure are in the | | | | PST | | results section. | + +--------+ + + + | TSH, REFLEX FREE T4 | Routin | 12/21/2014 | Weight loss | Results for this | | | e | 8:01 AM | Diarrhea | procedure are in the | | | | PST | | results section. | + +--------+ + + + | HEMOGLOBIN A1C | Routin | 12/21/2014 | Pancreatic | Results for this | | | e | 8:01 AM | insufficiency Loss | procedure are in the | | | | PST | of appetite Weight | results section. | | | | | loss | | + +--------+ + + + | GLUCOSE, FASTING | Routin | 12/21/2014 | Pancreatic | Results for this | | | e | 8:01 AM | insufficiency Loss | procedure are in the | | | | PST | of appetite Weight | results section. | | | | | loss | | + +--------+ + + + documented in this encounter Results TSH, Reflex Free T4 [...] [place] | | | | [address] [place] | | CORE | | | | [place] [address] | | LABORATORY | | | | | | (I) | | + + + + + + + + | Specimen | + + | Blood specimen | | (specimen) | + + + + + + + | Performing | Address | City/State/Zipcode | Phone Number | | Organization | | | | + + + + + | [facility] [place] | [address] | [place] [address] | [phone] | | [facility] (I) | | [...] values | 4.0 - 5.6 % | [facility] | | | A1c | of 5.7-6.4% [...] | | | | | [place] | | | | | | [address] | | | | + + + + + + + + | Specimen | + + | Blood specimen | | (specimen) | + + + + + + + | Performing | Address | City/State/Zipcode | Phone Number | | Organization | | | | + + + + + | [facility] [place] | [address] | [place] [address] | [phone] | | [facility] (I) | | [...] by | 65 - 99 mg/dL | [facility] | | | Fasting | [facility] [address] | | [place] | | | [...] | [address] | [place] [address] | [phone] | | [facility] (I) | | | | + + + + + Cortisol, AM (12/21/2014 8:01 AM PST) + + + + + + | Component | Value | Ref Range | Performed | Pathologist | | | | | At | Signature | + + + + + + | CORTISOL, | 7.6Comment: Cortisol | 6.7 - 22.6 | [facility] | | | AM | Reference range for | ug/dL | [place] | | | | children less than 6 | | CORE | | | | years of age has not | | LABORATORY | | | | been established at | | (I) | | | | PEM.Performed by | | | | | | [facility] [address] | | | | | | [place] | | | | | | [address] | | | | + + + + + + + + | Specimen | + + | Blood specimen | | (specimen) | + + + + + + + | Performing | Address | City/State/Zipcode | Phone Number | | Organization | | | | + + + + + | [facility] [place] | [address] | [place] [address] | [phone] | | [facility] (I) | | | | + + + + + documented in this encounter Visit Diagnoses + + | Diagnosis | + + | Loss of appetite Anorexia | + + | Weight loss Loss of weight | + + | Pancreatic insufficiency Other specified disease of pancreas | + + | Diarrhea | + + documented in this encounter"
--- OUTSIDE RECORDS SUMMARY | ~2018-12-30 | XMS | Encounter Summary ---
Demographics + + + | Address | [address] | | | [place] [address] | + + + | Home Phone | | + + + | Preferred Language | Unknown | + + + | Marital Status | Single | + + + | Mormon Affiliation | Unknown | + + + | Race | Unknown | + + + | Ethnic Group | Unknown | + + + Author + + + | Author | [facility] | | | and [place] | + + + | Organization | [facility] | | | and [place] [...] Team Providers + +------+ + | Care Bag Bailer Name | Role | Phone | + +------+ + | Timothy Elmore | PCP | | + +------+ + Encounter Details +--------+ + + + + | Date | Type | Department | Care Team | Description | +--------+ + + + + | 08/18/ | Abstract | [facility] | Karlee, | Dental caries | | 2015 | | PHYSIATRY [address] | Yfn Sabillon CMA | (Primary Dx); | | | | [address] | | Depression; | | | | [place] | | Essential | | | | [address] | | hypertension | | | | [phone] | | | +--------+ + + + [...]
--- OUTSIDE RECORDS SUMMARY | ~2018-12-30 | XMS | Encounter Summary ---
Demographics + + + | Address | [address] | | | [place] [address] | + + + | Home Phone [...] [place], | | | | | [place] [address] | | + + + + + Care Team Providers + +------+ + | Care Wholesale Diamond Broker Name | Role | Phone | + +------+ + PCP | Unavailable | + +------+ + Encounter Details +--------+ + + + + | Date | Type | Department | Care Team | Description | +--------+ + + + + | 09/28/ | Office | General Internal | Note, Outpatient | Progress Note | | 1994 | Visit-Trans | Medicine [address] | Clinic | | | | [place] | [address] | | | | | | Mailcode: [id number] | | | | | | Outpatient Clinic | | | | | | [address] | | | | | | [place], [place] | | | | | | [address] | | | | | | [phone] | | | +--------+ + + + [...] as of this encounter Progress Notes Interface, Flame Annealing Machine Setter In - 06/01/2006 3:00 AM PDT CLINIC [...] in the Pain Clinic. Faisal Grijalva M.D. Peripheral Edp Equipment Operator, Neurology JSantana/ben documented in this encounter Plan of Treatment Not on filedocumented as of this encounter Visit Diagnoses Not on filedocumented in this encounter"
--- OUTSIDE RECORDS SUMMARY | ~2018-12-30 | XMS | Encounter Summary ---
Demographics + + + | Address | [address] | | | [place] [address] | + + + | Home Phone | | + + + | Preferred Language | Unknown | + + + | Marital Status | Single | + + + | Mandaen Affiliation | Unknown | + + + | Race | White | + + + | Ethnic Group | Not or | + + + Author + + + | Author | [facility] | + + + | Organization | [facility] | + + + | Address | Unknown | + + + | Phone | Unavailable | + + + Support + + + + + | Name | Relationship | Address | Phone | + + + + + | Zaida Putnam | ECON | [address] | | | | | [place], | | | | | [place] [address] | | + + + + + Care Team Providers + +------+ + | Care Tar Heat Exchanger Cleaner Name | Role | Phone | + +------+ + PCP | Unavailable | + +------+ + Encounter Details +--------+ + + + + | Date | Type | Department | Care Team | Description | +--------+ + + + + | 07/24/ | Office | General Internal | Note, Outpatient | Progress Note | | 1994 | Visit-Trans | Medicine [address] | Clinic | | | | [place] | [address] | | | | | | Mailcode: [id number] | | | | | | Outpatient Clinic | | | | | | [address] | | | | | | [place], [place] | | | | | | [address] | | | | | | [phone] | | | +--------+ + + + [...] as of this encounter Progress Notes Interface, Painting Technician In - 06/05/2006 1:00 AM PDT CLINIC [...] remained quite high including continued attendance of amish and working on cowjdc-hfb-myvit activities. She denies changes in bladder or [...] 2. Bladder dysfunction, resolved. John Mulligan M.D. Pet Caregiver, Anesthesiology Director, Pain Management Services PK:bony documented in this encounter Plan of Treatment Not on filedocumented as of this encounter Visit Diagnoses Not on filedocumented in this encounter"
--- OUTSIDE RECORDS SUMMARY | ~2018-12-30 | XMS | Encounter Summary ---
Demographics + + + | Address | [address] | | | [place] [address] | + + + | Home Phone [...] Author + + + | Author | [facility] | + + + | Organization | [facility] | + + [...] [place], | | | | | [place] [address] | | + + + + + Care Team Providers + +------+ + | Care Vehicle Delivery Worker Name | Role | Phone | [...] [address] | | | | | | [place], [place] | | | | | | [address] | | | | | | [phone] | | | +--------+ + + + [...] as of this encounter Progress Notes Interface, Project Manager Retail In - 06/05/2006 1:00 AM PDT CLINIC [...] Ms. Evans remains quite active with her hindu organization oand is noticing that she has [...] outlets of her anger. John Mulligan M.D. Sheet Metal Foreman, Anesthesiology Director, Pain Management Services HUI/fernando documented in this encounter Plan of Treatment Not on filedocumented as of this encounter Visit Diagnoses Not on filedocumented in this encounter"
--- OUTSIDE RECORDS SUMMARY | ~2018-12-30 | XMS | Encounter Summary ---
Demographics + + + | Address | [address] | | | [place] [address] | + + + | Home Phone [...] [place], | | | | | [place] [address] | | + + + + + Care Team Providers + +------+ + | Care Contact Lens Blocker Name | Role | Phone | + [...] as of this encounter Progress Notes Interface, Procurement Inspector In - 02/23/2006 5:02 AM PSTCLINIC DATE: [...] C: 01/10/1998 ds cc: Wallace Szymanski M.D. Shipping Receiving Manager, Internal Medicine Hui Milton M.D. Resident, Internal Medicine 07 5:02 AM PSTdocumented in this encounter Plan of Treatment Not on filedocumented as of this encounter Visit Diagnoses Not on filedocumented in this encounter"
--- OUTSIDE RECORDS SUMMARY | ~2018-12-30 | XMS | Encounter Summary ---
Demographics + + + | Address | [address] | | | [place] [address] | + + + | Home Phone [...] [place], | | | | | [place] [address] | | + + + + + Care Team Providers + +------+ + | Care Back Strip Machine Operator Name | Role | Phone | + +------+ + PCP | Unavailable | + +------+ + Encounter Details +--------+ + + + + | Date | Type | Department | Care Team | Description | +--------+ + + + + | 09/26/ | Results | | Other, Faculty | | | 1993 | Only | | [phone] | | +--------+ + + + + [...]
--- OUTSIDE RECORDS SUMMARY | ~2018-12-30 | XMS | Encounter Summary ---
Demographics + + + | Address | [address] | | | [place] [address] | + + + | Home Phone | | + + + | Preferred Language | Unknown | + + + | Marital Status | Single | + + + | Uatsdin Affiliation | Unknown | + + + | Race | Unknown | + + + | Ethnic Group | Unknown | + + + Author + + + | Author | [facility] | | | and [place] | + + + | Organization | [facility] | | | and [place] [...] Team Providers + +------+ + | Care Toy Painter Name | Role | Phone | + [...] + | 08/09/ | Telephone | [facility] | Tapan Bragg | Appointment (today's | | 2015 | | [facility] | MD [address] | appt) | | | | [address] | [address] [place], | | | | | [address] [place] | [place] | | | | | [address] | [phone] | | | | | [phone] | | | +--------+ + + + [...]
--- OUTSIDE RECORDS SUMMARY | ~2018-12-30 | XMS | Encounter Summary ---
Demographics + + + | Address | [address] | | | [place] [address] | + + + | Home Phone | | + + + | Preferred Language | Unknown | + + + | Marital Status | Single | + + + | Scientology Affiliation | Unknown | + + + | Race | Unknown | + + + | Ethnic Group | Unknown | + + + Author + + + | Author | [facility] | | | and [place] | + + + | Organization | [facility] | [...] Team Providers + +------+ + | Care Chief Specialist Leed Name | Role | Phone | + [...] [place] | | | | | [address] | [phone] | | | | | [phone] | | | +--------+ + + + [...]
--- OUTSIDE RECORDS SUMMARY | ~2018-12-30 | XMS | Encounter Summary ---
Demographics + + + | Address | [address] | | | [place] [address] | + + + | Home Phone [...] Author + + + | Author | [facility] | + + + | Organization | [facility] | + + + | Address | Unknown | + + + | Phone | Unavailable | + + + Support + + + + + | Name | Relationship | Address | Phone | + + + + + | Zaida Putnam | ECON | [address] | | | | | [place], | | | | | [place] [address] | | + + + + + Care Team Providers + +------+ + | Care Central Office Equipment Installer Name | Role | Phone | [...] as of this encounter Progress Notes Interface, Vertica Architect In - 02/21/2006 3:06 AM PSTCLINIC DATE: [...] M.D. Resident, Internal Medicine Wallace Szymanski M.D. Skatesman, Internal Medicine TORI/niles d ocumented in this encounter Plan of Treatment Not on filedocumented as of this encounter Visit Diagnoses Not on filedocumented in this encounter"
--- OUTSIDE RECORDS SUMMARY | ~2018-12-30 | XMS | Encounter Summary ---
Demographics + + + | Address | [address] | | | [place] [address] | + + + | Home Phone [...] Author + + + | Author | [facility] | + + + | Organization | [facility] | + + + | Address | Unknown | + + + | Phone | Unavailable | + + + Support + + + + + | Name | Relationship | Address | Phone | + + + + + | Zaida Putnam | ECON | [address] | | | | | [place], | | | | | [place] [address] | | + + + + + Care Team Providers + +------+ + | Care Head Charger Name | Role | Phone | + +------+ + PCP | Unavailable | + +------+ + Encounter Details +--------+ + + + + | Date | Type | Department | Care Team | Description | +--------+ + + + + | 12/25/ | Office | UNKNOWN DEPARTMENT | Note, Outpatient | Progress Note | | 1993 | Visit-Trans | [address] | Clinic | | | | [place] | [address] | | | | | | [place], [place] | | | | | | [address] | | | +--------+ + + + [...] as of this encounter Progress Notes Interface, Ladle Liner In - 06/14/2006 5:08 AM PDT CLINIC [...] drink alcohol. 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 She is , currently living with a boyfriend/roommate in [place]. She is subsisting on Welfare, she has [...] management of somatization disorder. Faisal Grijalva M.D. Shactor, Neurology PIYUSH/ifrah cc: LEILANI ACOSTA MD [address] [place] [phone] documented in this encounter Plan of Treatment Not on filedocumented as of this encounter Visit Diagnoses Not on filedocumented in this encounter
--- OUTSIDE RECORDS SUMMARY | ~2018-12-30 | XMS | Encounter Summary ---
Demographics + + + | Address | [address] | | | [place] [address] | + + + | Home Phone | | + + + | Preferred Language | Unknown | + + + | Marital Status | Single | + + + | Bahai Affiliation | Unknown | + + + [...] [place], | | | | | [place] [address] | | + + + + + Care Team Providers + +------+ + | Care Leach Runner Name | Role | Phone | + +------+ + PCP | Unavailable | + +------+ + Encounter Details +--------+ + + + + | Date | Type | Department | Care Team | Description | +--------+ + + + + | 04/11/ | Office | UNKNOWN DEPARTMENT | Note, Outpatient | Progress Note | | 1994 | Visit-Trans | [address] | Clinic | | | | [place] | [address] | | | | | | [place], [place] | | | | | | [address] | | | +--------+ + + + [...] as of this encounter Progress Notes Interface, Internal Audit Consultant In - 06/11/2006 5:10 AM PDT CLINIC DATE: 04/11/94 NEUROLOGY CLINIC: Litzy returns for follow-up of her chronic pain syndrome. Since our last visit, I have had the opportunity to review an lumbosacral (LS) spine magnetic resonance imaging (MRI) performed at an outside hospital and dated 05/06/93. This was performed at [facility]. It was a good quality study [...] Follow-up in Pain Clinic. Faisal Grijalva M.D. News Camera Operator, Neurology FELIZ:manuel documented in this encounter Plan of Treatment Not on filedocumented as of this encounter Visit Diagnoses Not on filedocumented in this encounter
--- OUTSIDE RECORDS SUMMARY | ~2018-12-30 | XMS | Encounter Summary ---
Demographics + + + | Address | [address] | | | [place] [address] | + + + | Home Phone | | + + + | Preferred Language | Unknown | + + + | Marital Status | Single | + + + | Orthodox Affiliation | Unknown | + + + | Race | Unknown | + + + | Ethnic Group | Unknown | + + + Author + + + | Author | [facility] | | | and [place] | + + + | Organization | [facility] | | [...] Team Providers + +------+ + | Care Extension Edger Name | Role | Phone | + [...] | | | | | y | [address] | | | | | | Procedures | Phone: | | | | | | evaluate and | [phone] | | | | | | treat | | | +--------+--------+ + + + + Encounter Details +--------+---------+ + + + | Date | Type | Department | Care Team | Description | +--------+---------+ + + + | 12/14/ | Office | [facility] [address] [place] [address] | Joe Flores, | Pancreatic | | 2015 | Visit | [place] | [address] | insufficiency | | | | ENDOCRINOLOGY [address] | [address] | (Primary Dx); | | | | [address] | [place] [address] | Diarrhea; Loss of | | | | [address] [place], [place] | [phone] | appetite; Weight | | | | [address] | | loss | | | | [phone] | | | +--------+---------+ + + + [...] some workup that has been done at [facility]. I received a note from a surgical evaluat ion she had at [facility]. She has also had gastroenterology evaluation at [facility] as well, I do not have those [...] syndrome. Furthermore, I would suggest to her [facility] provider that he screen and evaluate for [...] | | CORE | | | | [place] [address] | | LABORATORY | | | | [...] + | KARLOS [address] | [address] | [place] [address] | [phone] | | CORE LABORATORY (I) | | [...] | | | | | [place] | | | | | | | [...] | [address] | [place] [address] | [phone] | | CORE LABORATORY (I) | | [...] | | CORE | | | | [address] | | LABORATORY | | | | [...] + | KARLOS BARNEY | [address] [facility] | [place] [address] | [phone] | | CORE LABORATORY (I) | | [...] | | (I) | | | | [facility].Performed by | | | | | [...] | [address] | [place] [address] | [phone] | | CORE LABORATORY (I) | | [...] | CORE | | | | [place] [address] | | LABORATORY | | | | [...] + | KARLOS BARNEY | [address] | [place] [address] | [phone] | | CORE LABORATORY (I) | | [...] | | CORE | | | | [address] | | LABORATORY | | | | [...] + | KARLOS BARNEY | [address] | [place] [address] | [phone] | | CORE LABORATORY (I) | | [...]
--- OUTSIDE RECORDS SUMMARY | ~2018-12-30 | XMS | Encounter Summary ---
Demographics + + + | Address | [address] | | | [place] [address] | + + + | Home Phone [...] [place], | | | | | [place] [address] | | + + + + + Care Team Providers + +------+ + | Care Levers Lace Machine Operator Name | Role | Phone [...] as of this encounter Progress Notes Interface, Wall Insulation Sprayer In - 02/28/2006 3:08 AM [facility] [place] [address] [place], [place] [address] or November 05, 1997 OLEG PUGH MD [address] [facility] [address] RE: LITZY [place] MR#: [id number] : [id number] Pugh: I had the pleasure of seeing your patient, Ms. Litzy Evans, at [facility] today for evaluation of her chronic pain problem. Ms. Evans tells me that she has moved to [place] within the last week and plans to establish care in the month of November with Dr. Kaleb Velásquez here at [facility]. Therefore, I will send you a copy of this letter, as well as Dr. Velásquez. Please allow me to briefly review Ms. Evans' history, as well as my evaluations, findings, and suggestions. Ms. Evans is a 42-year-old woman with a longstanding history of low back pain who had been previously treated at the [facility] prior to my arrival at [facility]. She states that she has had [...] tried a variety of medications including Tegretol, [place], Amitriptyline, and other antidepressants. CURRENT MEDICATIONS: 1. [...] has recently ended. She has moved to [place] and is now living with an ex-'s mother. 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 She smokes one pack of cigarettes a [...] also with some difficulty. Romberg is negative. Tcsynn-vmim-fxijnb is normal. On examination of her chest [...] normal limits." IMPRESSION: 1. Fibromyalgia by 1990 [place] [employer] criteria. 2. Significant psychiatric [...] her care from Internal Medicine here at [facility], would be for her to see [...] the 1995 intractable pain act here in [place]. I agreed with Ms. Evans that should she establish care with Dr. Velásquez here at [facility], I would be happy to discuss her care with him at that point. In the meantime, I have nothing additional or specific to offer for Ms. Evans' care. Thank you very much for your referral of Ms. Evans to the Pain Management Center here at [facility]. If you have any questions or concerns, please do not hesitate to give me a call at [phone]. Monroe Pruitt M.D. Hot Oiler, Anesthesiology Director of Pain Management Center BRS:mau cc: Kaleb Velásquez M.D. Hot Oiler, Medicine Richie Her, M.D. Hot Oiler, Department of Orthopedics and Rehabilitation Kaleb Velásquez M.D. Hot Oiler, Medicine Richie Her M.D. Hot Oiler, Department of Orthopedics and Rehabilitation documented in this encounter Plan of Treatment Not on filedocumented as of this encounter Visit Diagnoses Not on filedocumented in this encounter
--- OUTSIDE RECORDS SUMMARY | ~2018-12-30 | XMS | Encounter Summary ---
Demographics + + + | Address | [address] | | | [place] [address] | + + + | Home Phone [...] [place], | | | | | [place] [address] | | + + + + + Care Team Providers + +------+ + | Care Manager Machine Name | Role | Phone | [...]
--- OUTSIDE RECORDS SUMMARY | ~2018-12-30 | XMS | Encounter Summary ---
Demographics + + + | Address | [address] | | | [place] [address] | + + + | Home Phone [...] [place], | | | | | [place] [address] | | + + + + + Care Team Providers + +------+ + | Care Blowing Engineer Name | Role | Phone | [...]
--- OUTSIDE RECORDS SUMMARY | ~2018-12-30 | XMS | Encounter Summary ---
Demographics + + + | Address | [address] | | | [place] [address] | + + + | Home Phone [...] Author + + + | Author | [facility] | + + + | Organization | [facility] | + + + | Address | Unknown | + + + | Phone | Unavailable | + + + Support + + + + + | Name | Relationship | Address | Phone | + + + + + | Zaida Putnam | [place] | [address] | | | | | [place], | | | | | [place] [address] | | + + + + + [...]
--- OUTSIDE RECORDS SUMMARY | ~2018-12-30 | XMS | Encounter Summary ---
Demographics + + + | Address | [address] | | | [place] [address] | + + + | Home Phone [...] [place], | | | | | [place] [address] | | + + + + + Care Team Providers + +------+ + | Care Animal Control Specialist Name | Role | Phone | + +------+ + PCP | Unavailable | + +------+ + Encounter Details +--------+ + + + + | Date | Type | Department | Care Team | Description | +--------+ + + + + | 10/09/ | Office | General Internal | Note, Outpatient | Progress Note | | 1994 | Visit-Trans | Medicine [address] | Clinic | | | | [place] | [address] | | | | | | Mailcode: [id number] | | | | | | Outpatient Clinic | | | | | | [address] | | | | | | [place], [place] | | | | | | [address] | | | | | | [phone] | | | +--------+ + + + [...] as of this encounter Progress Notes Interface, Local Company Flatbed Truck Driver In - 06/01/2006 3:00 AM PDT CLINIC [...] a very low level with her boyfriend's [employer] business. 3. Increasing social function. This seems to be quite stable and she now is able to understand the effect that anger has on her pain. Ms. Evans will no longer be able to be seen the Pain Management Clinic at [facility] because of a change in insurance coverage. She will be cared for at [facility]. She has requested that her Pain Management Clinic progress notes as well as her Orthopedic progress notes from [facility] be sent to that institution. Ms. Evans has done well after arriving receiving a relatively high dose of oral opioids, Vicodin approximately eight per day. She has been titrated off opioids, and her pain level has decreased from a score of 7-8/10 to currently 0-1/10. I believe that her prognosis is quite good in terms of her chronic pain. John Mulligan M.D. Shoe Parts Caser, Anesthesiology Director, Pain Management Services PK:bony cc: CAROLINE YOON MD CRYSTAL CALIBRATOR ORTHOPEDICS [facility] documented in this encounter Plan of Treatment Not on filedocumented as of this encounter Visit Diagnoses Not on filedocumented in this encounter"
--- OUTSIDE RECORDS SUMMARY | ~2018-12-30 | XMS | Encounter Summary ---
Demographics + + + | Address | [address] | | | [place] [address] | + + + | Home Phone [...] Author | [facility] | | | and [place] | + + + | Organization | [facility] | | | and [place] | + [...] Team Providers + +------+ + | Care Needle Setter Name | Role | Phone | + [...] | | 2014 | | [place] | [address] | | | | | ENDOCRINOLOGY [address] | [address] | | | | | [address] | [place] [address] | | | | | [address] [place] [address] | [phone] | | | | | [address] | | | | | | [phone] | | | +--------+ + + + [...] | CORE | | | | [place] [address] | | LABORATORY | | | | [...] + + | KARLOS BARNEY | [address] [facility] [place] | [place] [address] | [phone] | | CORE LABORATORY (I) | | [...] | | CORE | | | | [address] | | LABORATORY | | | | [...] + + | [facility] [place] | [address] [facility] [place] | [place] [address] | [phone] | | CORE LABORATORY (I) | | | | + + + + + documented in this encounter Visit Diagnoses + + | Diagnosis | + + | Diarrhea | + + documented in this encounter"
--- OUTSIDE RECORDS SUMMARY | ~2018-12-30 | XMS | Encounter Summary ---
Demographics + + + | Address | [address] | | | [place] [address] | + + + | Home Phone [...] [place], | | | | | [place] [address] | | + + + + + Care Team Providers + +------+ + | Care Council On Aging Director Name | Role | Phone | [...] of this encounter Progress Notes Interface, Project Facilitator In - 02/28/2006 3:08 AM PST [facility] Account No. PROGRESS RECORD Name Litzy Evans Birthdate 1955 Date Probl Time em FORMAT: PROBLEM NUMBER and TITLE: S=Subjective Number O=Objective A=Analysis P=Plans CLINIC DATE: 11/05/1997 November 05, 1997 OLEG PUGH MD [address] [facility] [address] RE: Litzy EVANS. MR#: [id number] : [id number] Pugh: I had the pleasure of seeing your patient, Ms. Litzy Evans, at the [facility] today for evaluation of her chronic pain problem. Ms. Evans tells me that she has moved to [place] within the last week and plans to establish care in the month of November with Dr. Kaleb Velásquez here at [facility]. Therefore, I will send you [...] Center prior to my arrival at [facility]. She states that she has [...] tried a variety of medications including Tegretol, [place], Amitriptyline, and other antidepressants. CURRENT MEDICATIONS: 1. [...] has recently ended. She has moved to [place] and is now living with an ex-'s mother. 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 She smokes one pack of [...] also with some difficulty. Romberg is negative. Wahhux-kwnh-rptisn is normal. On examination of her chest [...] normal limits." IMPRESSION: 1. Fibromyalgia by 1990 [place] [employer] criteria. 2. Significant psychiatric [...] care from Internal Medicine here at [facility], would be for her to [...] the 1995 intractable pain act here in [place]. I agreed with Ms. Evans that should she establish care with Dr. Velásquez here at [facility], I would be happy to discuss her care with him at that point. In the meantime, I have nothing additional or specific to offer for Ms. Evans' care. Thank you very much for your referral of Ms. Evans to the Pain Management Center here at [facility]. If you have any questions or concerns, please do not hesitate to give me a call at [phone]. Monroe Pruitt M.D. Automatic Dispenser Mechanic, Anesthesiology Director of Pain Management Center BRS:mau cc: Kaleb Velásquez M.D. Automatic Dispenser Mechanic, Medicine Richie Hre M.D. Automatic Dispenser Mechanic, Department of Orthopedics and Rehabilitation nterface, Project Facilitator In - 02/28/2006 3:08 AM PSTCLINIC DATE: 11/05/97 PHONE CALL: Litzy called today requesting more Vicodin. She wanted it called to [facility]. I spoke with Dr. Her in regard to this and he declined the request. I called the patient at 16:15 and left a message to that effect. The phone number is [phone]. Lindsay Romeo R.N. Orthopedics HALLIE/emily P cc: documente d in this encounter Plan of Treatment Not on filedocumented as of this encounter Visit Diagnoses Not on filedocumented in this encounter
--- OUTSIDE RECORDS SUMMARY | ~2018-12-30 | XMS | Encounter Summary ---
Demographics + + + | Address | [address] | | | [place] [address] | + + + | Home Phone [...] [place], | | | | | [place] [address] | | + + + + + Care Team Providers + +------+ + | Care Intensive Care Nurse Name | Role | Phone | + [...] as of this encounter Progress Notes Interface, Fisher Reef Net In - 02/12/2006 3:04 AM PSTCLINIC DATE: [...]
--- OUTSIDE RECORDS SUMMARY | ~2018-12-30 | XMS | Encounter Summary ---
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 Moreover, she says this is an important [...] myself or from any other provider at [facility]. She has violated our contract as set forth in a previous note. She understands this. Moreover, she understands that her chart will be flagged in the [facility] system so that she cannot [...]
--- OUTSIDE RECORDS SUMMARY | ~2018-12-30 | XMS | Encounter Summary ---
Demographics + + + | Address | [address] | | | [place] [address] | + + + | Home Phone [...] [place], | | | | | [place] [address] | | + + + + + Care Team Providers + +------+ + | Care Car Audio Installer Name | Role | Phone | [...] as of this encounter Progress Notes Interface, Seasoning Sprayer In - 02/14/2006 5:12 AM PSTCLINIC DATE: [...]
--- OUTSIDE RECORDS SUMMARY | ~2018-12-30 | XMS | Encounter Summary ---
Demographics + + + | Address | [address] | | | [place] [address] | + + + | Home Phone [...] [place], | | | | | [place] [address] | | + + + + + Care Team Providers + +------+ + | Care Assembler Show Motor Name | Role | Phone | + [...] [id number] | | | | | | [place], [place] | | | | | | [address] | | | | | | [phone] | | | +--------+ + + + [...] OF | [address] | [place] [address] | | | PATHOLOGY | [address] | | | + + + + + documented in this encounter Visit Diagnoses Not on filedocumented in this encounter"
--- OUTSIDE RECORDS SUMMARY | ~2018-12-30 | XMS | Encounter Summary ---
Demographics + + + | Address | [address] | | | [place] [address] | + + + | Home Phone [...] | Author | [facility] | | | and [place] | + + + | Organization | [facility] | | | and [...] Team Providers + +------+ + | Care Breeder Service Technician Name | Role | Phone | + +------+ + | Timothy Elmore | PCP | | + +------+ + Reason for Visit + + + | Reason | Comments | + + + | Establish Care | SULFURIC ACID PLANT SUPERVISOR : Lumbar Spine : Referred by PCP [...] | | and other | [place] | [address] | | | | | examinations | [address] | Phone: | | | | | of body | Phone: | [phone] | | | | | structure | [phone] | Fax: | | | | | Procedures | | [phone] | | | | | CSJ-06/29 | | | +--------+--------+ + + + + Encounter Details +--------+---------+ + + + | Date | Type | Department | Care Team | Description | +--------+---------+ + + + | 08/09/ | Office | [facility] | Tapan Bragg | Left foot drop | | 2015 | Visit | [facility] | MD [address] | (Primary Dx) | | | | [address] | [address] [place], | | | | | [address] [place] | [place] | | | | | [address] | [phone] | | | | | [phone] | | | +--------+---------+ + + + [...]
--- OUTSIDE RECORDS SUMMARY | ~2018-12-30 | XMS | Encounter Summary ---
Demographics + + + | Address | [address] | | | [place] [address] | + + + | Home Phone [...] [place], | | | | | [place] [address] | | + + + + + Care Team Providers + +------+ + | Care Skilled Laborer Name | Role | Phone | + [...] [id number] | | | | | | [place], [place] | | | | | | [address] | | | | | | [phone] | | | +--------+ + + + [...] | + + + + + | [facility] | [address] | [place] [address] | | | PATHOLOGY | [address] [...] | + + + + + | [facility] | [address] | [place] [address] | | | PATHOLOGY | [address] [...] | + + + + + | [facility] | [address] | [place] [address] | | | PATHOLOGY | [address] [...] | + + + + + | [facility] | [address] | [place] [address] | | | PATHOLOGY | [address] [...] | + + + + + | [facility] | [address] | [place] [address] | | | PATHOLOGY | [address] [...] | + + + + + | [facility] | [address] | [place] [address] | | | PATHOLOGY | [address] | | | + + + + + documented in this encounter Visit Diagnoses Not on filedocumented in this encounter"
--- OUTSIDE RECORDS SUMMARY | ~2018-12-30 | XMS | Encounter Summary ---
Demographics + + + | Address | [address] | | | [place] [address] | + + + | Home Phone [...] Author + + + | Author | [facility] | | | and [place] | + + + | Organization | [facility] | | | and [...] Team Providers + +------+ + | Care Ships Or Barges Loader Name | Role | Phone | + +------+ + | Timothy Elmore | PCP | | + +------+ + Encounter Details +--------+ + + + + | Date | Type | Department | Care Team | Description | +--------+ + + + + | 08/04/ | [facility] | [facility] | Neo Pichardo MD | Hypertensive | | 2017 - | Encounter | [facility] | [address] | emergency; Essential | | | | [address] | [place] | hypertension | | 08/07/ | | [place] [address] | [address] | | | 2016 | | [phone] | | | +--------+ + + + [...] were performed which did not suggest ac chilkoot coronary syndrome. Echocardiogram was performed which showed [...] Specialty: Family Medicine Contact information: [address] [place] [id number] Discharge Medications New Medications Details acetaminophen 325 [...] signed by: Neo Pichardo MD, 08/07/2016 12:33 [facility] documented in this enc ounter Discharge Instructions [...] Mendoza MD - 08/06/2016 8:35 AM PDT [facility] HOSPITALIST PROGRESS NOTE Patient: Oneal Evans : 1955: Age: 60 y.o. MedRec: [id number] PCP: ASHANTI Esteves Admission date: 08/04/2016 Hospital [...] as outlined above. Neo Pichardo 08/06/2016 8:35 [facility] Mirna Kearns, PharmD - 08/05/2016 4:11 PM [...] Prior to Admission Sig: Patient taking differently SERVICE CREW SUPERVISOR as: Fluoxetine 40 mg Take 2 capsules by mouth daily Take 1 capsule by mouth 2 times daily Medication review performed and electronically signed by Jose Starr, Pattern Mechanic 15:21 Reviewed by Mirna Lyn, PharmD 08/05/2016 16:07 Neo Mendoza MD - 08/05/2016 9:28 AM PDT [facility] HOSPITALIST PROGRESS NOTE Patient: Oneal Evans : 1955: Age: 60 y.o. MedRec: [id number] PCP: ASHANTI Esteves Admission date: 08/04/2016 Hospital [...] This is a preliminary report provided by Chipolo, CARLIE. A kevin brown report is available at [facility]. CT ABDOMEN AND PELVIS WITH CO NTRAST [...] as outlined above. Neo Pichardo 08/05/2016 9:29 [facility] documented in this enc ounter Plan of [...] + | [facility] | [address] | [place] | [phone] | | [facility] | | [address] | | | - LABORATORY | | [...] | mL/min/1.73m2 | [facility] | | | [place]ESE | RATE,ESTIMATED | | MEDICAL | | | | mL/min/1.74t4Hlya than | | CENTER - | | [...] [address] | [place] | [phone] | | [facility] | | [address] | | | - LABORATORY | | [...] [address] | [place] | [phone] | | [facility] | | [address] | | | - LABORATORY | | [...] | [facility] | [address] | [place] | [phone] | | [facility] | | [address] | | | - LABORATORY | | [...] | | | | g/dL | [facility] | | | | | | MEDICAL [...] [address] | [place] | [phone] | | [facility] | | [address] | | | - LABORATORY | | [...] 0.46 (L) | 0.60 - 1.30 | [facility] | | | | | mg/dL | [facility] | | | | | | MEDICAL | | | | | | CENTER - | | | | | | LABORATORY | | + + + + + + | eGFR if not | >60Comment: GLOMERULAR | >=60 | [facility] | | | | FILTRATION | mL/min/1.73m2 | [facility] | | | [place]GAL[place] | RATE,ESTIMATED | | MEDICAL | | | | mL/min/1.15x4Knlg than | | CENTER - | | [...] + | [facility] | [address] | [place] | [phone] | | [facility] | | [address] | | | - LABORATORY | | [...] [address] | [place] | [phone] | | [facility] | | [address] | | | - LABORATORY | | [...] | | | FILTRATION | mL/min/1.73m2 | [facility] | | | [place]GALESE | RATE,ESTIMATED | | MEDICAL | | | | mL/min/1.53q1Aaqj than | | CENTER - | | [...] | | | | | mg/dL | [facility] | | | | | [...] [address] | [place] | [phone] | | [facility] | | [address] | | | - LABORATORY | | [...] [address] | [place] | [phone] | | [facility] | | [address] | | | - LABORATORY | | [...] 458 | | | [place] Patient Number [id number] Date of Study | | | 08/05/2016 Visit Number [id number] Accession | | | [id number] Referring Physician JAZLYN MORILLO Number | | | Date of 1955 Medical Authorization Specialist | | | GAVIN JENNINGS [facility] Age 60 year(s) | | | Interpreting ERICK DUKE | | | Sample Maker Hand LEILANI | | | MD ERICK Gender Female Nurse | | | Stress Aquatics Director Procedure Type | | | of Study [...] Volume: 55.37 ml | | | EF Exmqotzlw39% Left | | | Ventricle Diastolic Dimension: [...] Volume: 55.37 ml | | | EF Kcppbulag14% | | | | | | Left [...] Number 458 | | [place] Patient Number [id number] Date of Study 08/05/2016 Visit Number | | [id number] Referring Physician JAZLYN MORILLO Number | | Date of 1955 Medical Authorization Specialist GAVIN JENNINGS [facility] Age | | 60 year(s) Interpreting ERICK DUKE | | Sample Maker Hand LEILANI SUAREZ MD Gender Female Nurse | [...] [place] Volume: 55.37 ml EF | | Flwqunzmj50% Left Ventricle Diastolic Dimension: 5.52 cm Systolic [...] LA Volume: 55.37 ml | | EF Zondibian75% | | | | Left Ventricle | [...] [address] | [place] | [phone] | | [facility] | | [address] | | | - LABORATORY | | [...] [address] | [place] | [phone] | | [facility] | | [address] | | | - LABORATORY | | [...] [address] | [place] | [phone] | | [facility] | | [address] | | | - LABORATORY | | [...] + | [facility] | [address] | [place] | [phone] | | [facility] | | [address] | | | - LABORATORY | | [...] | | | | | | [employer] | | | | | [...] + + | Performing | Address | City/State[facility] | Phone Number | | Organization | | | | + + + + + | [facility] | [address] | [place] | [phone] | | [facility] | | [address] | | | - LABORATORY | | [...] mL/min/1.73m2 | [facility] [address] | | | [place] | RATE,ESTIMATED | | MEDICAL | | | | mL/min/1.09l6Wboz than | | CENTER - | | [...] [address] | [place] | [phone] | | [facility] | | [address] | | | - LABORATORY | | [...] [address] | [place] | [phone] | | [facility] | | [address] | | | - LABORATORY | | [...] | | | | | | [employer] | | | | | [...] + | KARLOS INGRAM | [address] | [place] | [phone] | | [facility] | | [address] | | | - LABORATORY | | [...] | | | | JAMMIE ALONSO MD ([id number]) | | | | | | on [...] | | edema. Dictated and Signed by: aHng Evans MD | | | Electronically signed: [...] + | [facility] | [address] | [place] | [phone] | | [facility] | | [address] | | | - LABORATORY | | [...] | | | | JAMMIE ALONSO MD ([id number]) | | | | | | on [...] [address] | [place] | [phone] | | [facility] | | [address] | | | - LABORATORY | | [...] [address] | [place] | [phone] | | [facility] | | [address] | | | - LABORATORY | | [...] | | | | | | [employer] | | | | | [...] + | [facility] | [address] | [place] | [phone] | | [facility] | | [address] | | | - LABORATORY | | [...] [address] | [place] | [phone] | | [facility] | | [address] | | | - LABORATORY | | [...] + | [facility] | [address] | [place] | [phone] | | [facility] | | [address] | | | - LABORATORY | | [...] + | [facility] | [address] | [place] | [phone] | | [facility] | | [address] | | | - LABORATORY | | [...] | mL/min/1.73m2 | [facility] | | | [place] | RATE,ESTIMATED | | MEDICAL | | | | mL/min/1.28k1Tmpi than | | CENTER - | | [...] [address] | [place] | [phone] | | [facility] | | [address] | | | - LABORATORY | | [...] [address] | [place] | [phone] | | [facility] | | [address] | | | - LABORATORY | | [...] | | | | | | | [place] 08/05/16 at 1130, Initial | | | [...] | | | over 4 Hours, ONCE, [place] 08/05/16 | | | | | | [...]
--- OUTSIDE RECORDS SUMMARY | ~2018-12-30 | XMS | Encounter Summary ---
Demographics + + + | Address | [address] | | | [place] [address] | + + + | Home Phone [...] Author | [facility] | | | and [place] | + + + | Organization | [facility] | | [...] Team Providers + +------+ + | Care Contracting Executive Name | Role | Phone | [...] + + | 06/21/ | Telephone | [facility] | Jacklyn, | Referral (Follow up) | | 2016 | | [facility] | MD [address] | (LT Knee MR (PRMCE) | | | | [address] | -- APPROVED); Other | | | | [address] [place] | [place] [address] | (See comments) | | | | [address] | [phone] | | | | | [phone] | | | +--------+ + + + [...]
--- OUTSIDE RECORDS SUMMARY | ~2018-12-30 | XMS | Encounter Summary ---
Demographics + + + | Address | [address] | | | [place] [address] | + + + | Home Phone [...] [place], | | | | | [place] [address] | | + + + + + Care Team Providers + +------+ + | Care Wind Turbine Electrical Engineer Name | Role | Phone | [...] as of this encounter Progress Notes Interface, Meat Press Operator In - 02/07/2006 1:09 AM PSTCLINIC [...] or throat itching. She has been taking zatp-lif-qvvpqjb pseudoephedrine, but has not noted much relief. [...] Ms. Evans is planning to move to [place]. We will forward her records as soon [...]
--- OUTSIDE RECORDS SUMMARY | ~2018-12-30 | XMS | Encounter Summary ---
Demographics + + + | Address | [address] | | | [place] [address] | + + + | Home Phone [...] + + + | Author | [facility] | | | and [place] | + + + | Organization | [facility] | | | and [place] [...] Team Providers + +------+ + | Care Pneumatic Tube Repairer Name | Role | Phone | [...] (ArnoldaScvitor | | 2015 | | [address] [facility] | [address] | prep) | | | | [address] | [place] | | | | | [place] | [address] | | | | | [address] | [phone] | | | | | [phone] | | | +--------+ + + + [...]
--- OUTSIDE RECORDS SUMMARY | ~2018-12-30 | XMS | Encounter Summary ---
Demographics + + + | Address | [address] | | | [place] [address] | + + + | Home Phone [...] [place], | | | | | [place] [address] | | + + + + + Care Team Providers + +------+ + | Care Senior Media Director Name | Role | Phone | + +------+ + PCP | Unavailable | + +------+ + Encounter Details +--------+ + + + + | Date | Type | Department | Care Team | Description | +--------+ + + + + | 06/26/ | Office | General Internal | Note, Outpatient | Progress Note | | 1994 | Visit-Trans | Medicine [address] | Clinic | | | | [address]itt | [address] | | | | | | Mailcode: L475 | | | | | | Outpatient Clinic | | | | | | [address] | | | | | | [place], [place] | | | | | | [address] | | | | | | [phone] | | | +--------+ + + + [...] as of this encounter Progress Notes Interface, Service Transformer Repair Supervisor In - 06/06/2006 5:07 AM PDT CLINIC [...] addition, she remains active in her local synagogue and is in the process of moving [...] 2. Bladder dysfunction, resolved. John Mulligan M.D. Substation Operator, Anesthesiology Director, Pain Management Services HUI /efren A documented in this encounter Plan of Treatment Not on filedocumented as of this encounter Visit Diagnoses Not on filedocumented in this encounter"
--- OUTSIDE RECORDS SUMMARY | ~2018-12-30 | XMS | Encounter Summary ---
Demographics + + + | Address | [address] | | | [place] [address] | + + + | Home Phone [...] | Author | [facility] | | | and [place] | + + + | Organization | [facility] | | | and [...] Team Providers + +------+ + | Care Licensed Loan Officer Name | Role | Phone | [...] n | neuritis or | [place] | [address] | | | | | | [address] | [place], | | | | | radiculitis, | [place], | [place] | | | | | unspecified | [place] | Phone: | | | | | [facility] | [address] | [phone] | | | | | | Phone: | Fax: | | | | | | [phone] | [phone] | +--------+--------+ + + + + Encounter Details +--------+ + + + + | Date | Type | Department | Care Team | Description | +--------+ + + + + | 02/24/ | Procedure | [facility] | [place], | 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 Ankle Clonus: absent. [address] [address] Patient: Litzy Evans Date of : 1955 Sex: Female Age: 59 Years 4 Months Height: 5 feet 5 inch Sensory NCS Nerve / Sites Rec. Site Onset Lat Peak Lat ASSISTANT PROFESSOR OF ANTHROPOLOGY Amp PP Amp Segments Distance Velocity ms [...]
--- OUTSIDE RECORDS SUMMARY | ~2018-12-30 | XMS | Clinical Summary ---
Demographics + + + | Address | [address] | | | [place] [address] | + + + | Home Phone [...] [place], | | | | | [place] [address] | | + + + + + Care Team Providers + +------+ + | Care Solutions Developer Name | Role | Phone | + +------+ + PCP | Unavailable | + +------+ + Source Comments MARY is fully live on both [facility] and [facility] InPatient.[facility] Allergies Not on File Medications [...]
--- OUTSIDE RECORDS SUMMARY | ~2018-12-30 | XMS | Encounter Summary ---
Demographics + + + | Address | [address] | | | [place] [address] | + + + | Home Phone | | + + + | Preferred Language | Unknown | + + + | Marital Status | Single | + + + | Spiritism Affiliation | Unknown | + + + | Race | Unknown | + + + | Ethnic Group | Unknown | + + + Author + + + | Author | [facility] | | | and [place] | + + + | Organization | [facility] | | | and [...] Team Providers + +------+ + | Care Ball Warper Tender Name | Role | Phone | [...] | | | | | [address] [place] | [address] | | | | | [address] | [place] [address] | | | | | [phone] | [phone] | | | | | | | [...] through Care Everywhere.THRUSH, ORAL (Y EAST INFECTION) (SRI LANKAN)documented in this encounter Medications at Time of [...]
--- OUTSIDE RECORDS SUMMARY | ~2018-12-30 | XMS | Encounter Summary ---
Demographics + + + | Address | [address] | | | [place] [address] | + + + | Home Phone [...] + | Author | [facility] | | | and [place] | + + + | Organization | [facility] | [...] Team Providers + +------+ + | Care Tipping Machine Operator Name | Role | Phone [...] [id number] | | | | | [facility] [address] | [place] [address] | | | | | [address] [place] | [phone] | | | | | [address] | | | | | | [phone] | | | +--------+ + + + [...] | CORE | | | | [place] [address] | | LABORATORY | | | | [...] + | [place] | [address] | [place] [address] | [phone] | | CORE LABORATORY (I) | | [...] (I) | | | | [place] [address] | | | | + + + + + + + + | Specimen | + + | Blood specimen | | (specimen) | + + + + + + + | Performing | Address | City/State/Zipcode | Phone Number | | Organization | | | | + + + + + | [place] [place] | [address] | [place] [address] | [phone] | | CORE LAB[facility]ATORY (I) | | [...] + | [place] | 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
--- OUTSIDE RECORDS SUMMARY | ~2018-12-30 | XMS | Encounter Summary ---
Demographics + + + | Address | [address] | | | [place] [address] | + + + | Home Phone [...] Author | [facility] | | | and [place] | + + + | Organization | [facility] | | | and [place] [...] Providers + +------+ + | Care Rn Manager Name | Role | Phone | [...] | | 2016 | Orders | [address] | [address] | pulmonary disease, | | | | [place] | [place] | unspecified COPD | | | | [address] | [address] | type (HCC) (Primary | | | | [phone] | [phone] | Dx) | +--------+ + + + [...]
--- OUTSIDE RECORDS SUMMARY | ~2018-12-30 | XMS | Encounter Summary ---
Demographics + + + | Address | [address] | | | [place] [address] | + + + | Home Phone [...] Author | [facility] | | | and [place] | + + + | Organization | [facility] | | [...] Team Providers + +------+ + | Care Channel Cementer Insole Machine Name | Role | Phone | [...] + + | 11/10/ | Clinical | [facility] | | Disorder of bone and | | 2014 | Support | Group [address] | | cartilage, | | | | [address] | | unspecified | | | | [address] [place] | | | | | | [address] | | | | | | [phone] | | | +--------+ + + + [...] as of this encounter Progress Eunice [place], Recording Studio Internship - 11/10/2014 3:21 PM PDTA/P Spine and [...]
--- OUTSIDE RECORDS SUMMARY | ~2018-12-30 | XMS | Encounter Summary ---
Demographics + + + | Address | [address] | | | [place] [address] | + + + | Home Phone [...] [place], | | | | | [place] [address] | | + + + + + Care Team Providers + +------+ + | Care Forms Designer Name | Role | Phone | [...] as of this encounter Progress Notes Interface, Truss Maker In - 02/21/2006 3:06 AM PSTCLINIC DATE: [...] M.D. Resident, Internal Medicine Wallace Szymanski M.D. Assembler 1St Shift, Internal Medicine TORI/joshua d ocumented in this encounter Plan of Treatment Not on filedocumented as of this encounter Visit Diagnoses Not on filedocumented in this encounter"
--- OUTSIDE RECORDS SUMMARY | ~2018-12-30 | XMS | Encounter Summary ---
Demographics + + + | Address | [address] | | | [place] [address] | + + + | Home Phone [...] | Author | [facility] | | | and [place] | + + + | Organization | [facility] | | | and [...] Team Providers + +------+ + | Care Podiatry Doctor Name | Role | Phone | + [...] | | [address] | [place] [address] | | | | | [address] [place] | [phone] | | | | | [address] | | | | | | [phone] | | | +--------+ + + + [...]
--- OUTSIDE RECORDS SUMMARY | ~2018-12-30 | XMS | Encounter Summary ---
Demographics + + + | Address | [address] | | | [place] [address] | + + + | Home Phone [...] [place], | | | | | [place] [address] | | + + + + + Care Team Providers + +------+ + | Care Chocolate Refining Roller Name | Role | Phone | + +------+ + PCP | Unavailable | + +------+ + Encounter Details +--------+ + + + + | Date | Type | Department | Care Team | Description | +--------+ + + + + | 05/13/ | Results | | Other, Faculty | | | 1998 | Only | | [phone] | | +--------+ + + + + [...] | | + +---------+ + + | [facility] DEPARTMENT OF | | | | | RADIOLOGY | | | | + +---------+ + + documented in this encounter Visit Diagnoses Not on filedocumented in this encounter"
--- OUTSIDE RECORDS SUMMARY | ~2018-12-30 | XMS | Encounter Summary ---
Demographics + + + | Address | [address] | | | [place] [address] | + + + | Home Phone | | + + + | Preferred Language | Unknown | + + + | Marital Status | Single | + + + | Mormonism Affiliation | Unknown | + + + | Race | Unknown | + + + | Ethnic Group | Unknown | + + + Author + + + | Author | [facility] | | | and [place] | + + + | Organization | [facility] | | | [...] Team Providers + +------+ + | Care Drone Operator Name | Role | Phone | [...] | | | | | Phone: | [phone] | | | | | | [phone] | Fax: | | | | | | Fax: | [phone] | | | | | | [phone] | | +--------+ + + + + [...] | | and other | [place] | [address] | | | | | examinations | [address] | Phone: | | | | | of body | Phone: | [phone] | | | | | structure | [phone] | Fax: | | | | | Procedures | | [phone] | | | | | CSJ-06/29 | | | +--------+--------+ + + + + Encounter Details +--------+---------+ + + + | Date | Type | Department | Care Team | Description | +--------+---------+ + + + | 05/08/ | Office | [facility] [place] [facility] | Tapan Bragg | Lumbar stenosis | | 2016 | Visit | [facility] | MD [address] | (Primary Dx) | | | | [address] [facility] | [facility] [address] [place], | | | | | [address] [place] | [place] [address] | | | | | [address] | [phone] | | | | | [phone] | | | +--------+---------+ + + + [...] head Will arrange a consultation with Will Villasenro MD for eval/Rx of this problem. RTC prn Rationale for this approach explained to the patient. All questions were answered. MEDICATIONS: None through this clinic WORK: Disabled/retired because of LBP/Knee pain/Feet pain NOTE: Please sign up for MY CHART at the front desk representative. Just ask the staff there to help [...] up for MY CHART at the front desk representative. Just ask the staff there to help you. Tpaan Bragg MD documented in t his encounter [...]
--- OUTSIDE RECORDS SUMMARY | ~2018-12-30 | XMS | Encounter Summary ---
Demographics + + + | Address | [address] | | | [place] [address] | + + + | Home Phone [...] Author | [facility] | | | and [place] | + + + | Organization | [facility] | [...] Team Providers + +------+ + | Care Hris Coordinator Name | Role | Phone | [...] + | 06/15/ | Telephone | [facility] | Jacklyn, | Appointment (Pain in | | 2016 | | CRANI SPINE JNT | [address] | Left leg -- See | | | | [address] | [address] | comment) | | | | [address] [place] | [place] | | | | | [address] | [phone] | | | | | [phone] | | | +--------+ + + + [...]
--- OUTSIDE RECORDS SUMMARY | ~2018-12-30 | XMS | Encounter Summary ---
Demographics + + + | Address | [address] | | | [place] [address] | + + + | Home Phone [...] [place], | | | | | [place] [address] | | + + + + + Care Team Providers + +------+ + | Care Booth Manager Name | Role | Phone | [...] [address] [place] | | | | | [address] | [place], [place] | | | | | Vernell Correa Mailcode: | [address] | | | | | [id number] Outpatient | [phone] | | | | | Clinic Building | | | | | | [place], [place] | | | | | | [address] | | | | | | [phone] | | | +--------+ + + + [...] | | + +---------+ + + | [facility] DEPARTMENT | | | | | RADIOLOGY | | | | + +---------+ + + documented in this encounter Visit Diagnoses Not on filedocumented in this encounter"
--- OUTSIDE RECORDS SUMMARY | ~2018-12-30 | XMS | Encounter Summary ---
Demographics + + + | Address | [address] | | | [place] [address] | + + + | Home Phone [...] | Author | [facility] | | | and [place] | + + + | Organization | [facility] | | | and [place] [...] Team Providers + +------+ + | Care Mold Presser Name | Role | Phone | + [...] | 12/23/ | Clinical | [facility] [address] | | Elevated cortisol | | 2015 | Support | [place] | | level (HCC) (Primary | | | | ENDOCRINOLOGY 1330 | | Dx); Decreased | | | | [address] | | cortisol level ([facility]) | | | | [address] [place] | | | | | | [address] | | | | | | [phone] | | | +--------+ + + + [...] | | Right | | Intramuscular, ONCE, [facility] 12/23/14 | | AM PST | | [...]
--- OUTSIDE RECORDS SUMMARY | ~2018-12-30 | XMS | Encounter Summary ---
Demographics + + + | Address | [address] | | | [place] [address] | + + + | Home Phone [...] [place], | | | | | [place] [address] | | + + + + + Care Team Providers + +------+ + | Care Hander In Name | Role | Phone | + [...] as of this encounter Progress Notes Interface, Animal Ecologist In - 02/23/2006 5:02 AM PSTCLINIC DATE: [...] M.D. Resident, Internal Medicine Wallace Szymanski M.D. Eligibility Supervisor, Internal Medicine TORI/JENAE/estrellita d ocumented in this encounter Plan of Treatment Not on filedocumented as of this encounter Visit Diagnoses Not on filedocumented in this encounter"
--- OUTSIDE RECORDS SUMMARY | ~2018-12-30 | XMS | Clinical Summary ---
Demographics + + + | Address | [address] | | | [place] [address] | + + + | Home Phone [...] | Author | [facility] | | | and [place] | + + + | Organization | [facility] [...] Team Providers + +------+ + | Care Respiratory Therapy Technician Name | Role | Phone | [...] +--------+ +---------+--------+ | MEDICARE | MEDICA | [id number] | 03/21/18 | [phone] | | Medica | | | RE | | 96-Pre | 5 | | re | | | PART A | | sent | | | | | | AND B | | | | | | + +--------+ +--------+ +---------+--------+ | MEDICAID [place] | MEDICA | [id number] | | [phone] | | Medica | [...] | 4 | [phone] | [place] [address] | | | anastasiya | | | 7 (Home) | | + +--------+ +--------+ + + Advance Directives + + + + + | Type | Date Recorded | Patient | Explanation | | | | Retirement Plan Specialist | | + + + + + | Power of | | | | | Sales Agent Insurance | | | | + + + [...]
--- OUTSIDE RECORDS SUMMARY | ~2018-12-30 | XMS | Encounter Summary ---
Demographics + + + | Address | [address] | | | [place] [address] | + + + | Home Phone [...] [place], | | | | | [place] [address] | | + + + + + Care Team Providers + +------+ + | Care Pole Sander Operator Name | Role | Phone | [...] Rd | | | | | | [place] | | | | | | [address] | | | +--------+ + + + [...] as of this encounter Progress Notes Interface, Battery Parts Assembler In - 06/14/2006 5:08 AM PDT [address] [address] [facility] January 08, 1996 DARYL ELLIS PH D SOCIAL WORKER [facility] [address] [address] RE:Litzy Evans MR:[id number] Ellis: Thank [...] any further information. Sincerely, Faisal Grijalva M.D. Java Sybase Developer, Neurology PIYUSH:sailaja January 09, 1996 documented in this encounter Plan of Treatment Not on filedocumented as of this encounter Visit Diagnoses Not on filedocumented in this encounter"
--- OUTSIDE RECORDS SUMMARY | ~2018-12-30 | XMS | Encounter Summary ---
Demographics + + + | Address | [address] | | | [place] [address] | + + + | Home Phone [...] [place], | | | | | [place] [address] | | + + + + + Care Team Providers + +------+ + | Care Car Dropper Name | Role | Phone | + [...] as of this encounter Progress Notes Interface, Cold Header Operator In - 02/28/2006 3:08 AM PSTCLINIC [...] recently by a family medicine service in [place], [place]. 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 Richie Her M.D. Scientific Software Engineer, Department of Orthopedics and Rehabilitation DANELLE/emily P documented in this encounter Plan of Treatment Not on filedocumented as of this encounter Visit Diagnoses Not on filedocumented in this encounter"
--- OUTSIDE RECORDS SUMMARY | ~2018-12-30 | XMS | Encounter Summary ---
Demographics + + + | Address | [address] | | | [place] [address] | + + + | Home Phone [...] [place], | | | | | [place] [address] | | + + + + + Care Team Providers + +------+ + | Care Pullman Clerk Name | Role | Phone | [...] as of this encounter Progress Notes Interface, Green Prize Packer In - 02/09/2006 5:05 AM PSTCLINIC DATE: [...]
--- OUTSIDE RECORDS SUMMARY | ~2018-12-30 | XMS | Encounter Summary ---
Demographics + + + | Address | [address] | | | [place] [address] | + + + | Home Phone [...] [place], | | | | | [place] [address] | | + + + + + Care Team Providers + +------+ + | Care Ribbon Weaver Name | Role | Phone | + +------+ + PCP | Unavailable | + +------+ + Encounter Details +--------+ + + + + | Date | Type | Department | Care Team | Description | +--------+ + + + + | 09/04/ | Office | General Internal | Note, Outpatient | Progress Note | | 1994 | Visit-Trans | Medicine [address] | Clinic | | | | [place] | [address] | | | | | | Mailcode: L475 | | | | | | Outpatient Clinic | | | | | | [address] | | | | | | [place], [place] | | | | | | [address] | | | | | | [phone] | | | +--------+ + + + [...] as of this encounter Progress Notes Interface, Cooling Tower Technician In - 06/03/2006 2:00 AM PDT CLINIC [...] Ms. Evans has not been attending her episcopal on Sundays but continues to go to local episcopal meetings. She denies sedation, and nausea and [...] increased social function and participation in her sabianist group. John Mulligan M.D. Pole Cutter, Anesthesiology Director, Pain Management Services PK:bony cc: CAROLINE YOON MD INDUSTRIAL GARAGE SERVICER [facility] documented in this encounter Plan of Treatment Not on filedocumented as of this encounter Visit Diagnoses Not on filedocumented in this encounter
--- OUTSIDE RECORDS SUMMARY | ~2018-12-30 | XMS | Encounter Summary ---
Demographics + + + | Address | [address] | | | [place] [address] | + + + | Home Phone [...] [facility] | | | and [place] | + + + | Organization | [facility] | | | and [...] Providers + +------+ + | Care Screen Making Supervisor Name | Role | Phone | + +------+ + | Timothy Elmore | PCP | | + +------+ + Reason for Visit + + + | Reason | Comments | + + + | Breast Concern | HAM MARKER CON left breast implant rupture since 08/04/15. [...] | implant | [address] | Surg [address] | | | | | status | [place] | [address] | | | | | | [address] | [address] | | | | | | Tristan | [place] | | | | | | [place] | [address] | | | | | | [address] | Phone: | | | | | | Phone: | [phone] | | | | | | [phone] | Fax: | | | | | | | [phone] | +--------+--------+ + + + + Encounter Details +--------+---------+ + + + | Date | Type | Department | Care Team | Description | +--------+---------+ + + + | 09/20/ | Office | [facility] | Wesley Mckeon, | Breast implant | | 2015 | Visit | Surgery [address] | [place] [address] | opal, initial | | | | [address] | [address] [address] | encounter (Primary | | | | [place] | [place] [address] | Dx) | | | | [address] | [phone] | | | | | [phone] | | | +--------+---------+ + + + [...] this encounter Progress Notes Pasquale Granados V, TANK FARM ATTENDANT - 09/21/2015 3:20 PM PDTFormatting of this [...] Alcohol Use: No The patient lives in [place]. Family History: Family History Problem Relation Age [...]
--- OUTSIDE RECORDS SUMMARY | ~2018-12-30 | XMS | Encounter Summary ---
Demographics + + + | Address | [address] | | | [place] [address] | + + + | Home Phone [...] | Author | [facility] | | | and [place] | + + + | Organization | [facility] [...] Team Providers + +------+ + | Care Coding Team Lead Name | Role | Phone [...] | | oral mucosa | address | [facility] | | | | | | information | [address] | | | | | | [place] | [place] | | | | | | | [address] Phone: | | | | | | | [phone] | | | | | | | Fax: | | | | | | | [phone] | +--------+--------+ + + + + Encounter Details +--------+---------+ + + + | Date | Type | Department | Care Team | Description | +--------+---------+ + + + | 12/07/ | Office | [facility] [address] | Jamir Griffith, | Oral lesion (Primary | | 2016 | Visit | [facility]NT 13[address] | MD 1330 | Dx); Tinnitus, | | | | [address] | [facility] [address] | bilateral; | | | | [address] [place] [address] | [address] [place] [address] | Hoarseness; ETD | | | | [phone] | [phone] | (eustachian tube | | | | [...] that [facility] related to use of prolonged [...] regarding hearing loss. I spent 50 minutes [id number] with Litzy [place] today; greater than 50% [...]
--- OUTSIDE RECORDS SUMMARY | ~2018-12-30 | XMS | Encounter Summary ---
Demographics + + + | Address | [address] | | | [place] [address] | + + + | Home Phone [...] [place], | | | | | [place] [address] | | + + + + + Care Team Providers + +------+ + | Care Director Of Events Name | Role | Phone | + [...] of this encounter Progress Notes Interface, Supervisor Electric In - 02/09/2006 5:05 AM PSTCLINIC DATE: [...] at numerous medical centers throughout [facility] and [facility]. 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 I contacted [facility] and [facility] in [place] (telephone # [phone] and [phone] respectively) to warn them of her potential misuse of medication. Moreover, I am concerned because she has a prescription for MS Contin in hand which she is supposed to fill for June and I wanted to make sure they knew to confiscate that prescription and not have it filled. Lastly, I have spoken with Nelly Hamilton, our clinical health social work professor, who has taken the task in hand as far as alerting Social Security and Medicare of potential fraud. Hiu Milton M.D. TORI/kiah cc: Doris Maurice [facility] Internal Medicine Miranda García [facility] Internal Medicine Andria Hamilton [facility] Internal Medicine [facility] Wallace Szymanski M.D. [facility] Internal Medicine 5 :05 AM PSTdocumented in this encounter Plan of Treatment Not on filedocumented as of this encounter Visit Diagnoses Not on filedocumented in this encounter"
--- OUTSIDE RECORDS SUMMARY | ~2018-12-30 | XMS | Encounter Summary ---
Demographics + + + | Address | [address] | | | [place] [address] | + + + | Home Phone [...] [place], | | | | | [place] [address] | | + + + + + Care Team Providers + +------+ + | Care Rn Diabetes Name | Role | Phone | + [...] Rd | | | | | | [place] | | | | | | [address] | | | +--------+ + + + [...] of this encounter Progress Notes Interface, Semiconductor Development Technician In - 06/14/2006 5:08 AM PDT [address] [address] [facility] December 25, 1995 LEILANI ACOSTA MD [address] [place] [address] RE:Litzy Evans MR#:[id number] Acosta: Thank you for referring Litzy Evans to the [facility] Neurology Clinic for evaluation. I [...] your kind referral. Sincerely, Faisal Grijalva M.D. Facilities Clerk, Neurology JFQ/mrd [birth year] 26, 1995 documented in this encounter Plan of Treatment Not on filedocumented as of this encounter Visit Diagnoses Not on filedocumented in this encounter"
--- OUTSIDE RECORDS SUMMARY | ~2018-12-30 | XMS | Encounter Summary ---
Demographics + + + | Address | [address] | | | [place] [address] | + + + | Home Phone [...] [place], | | | | | [place] [address] | | + + + + + Care Team Providers + +------+ + | Care Media Reporter Name | Role | Phone | [...] as of this encounter Progress Notes Interface, Value Analysis Coordinator In - 02/17/2006 3:01 AM PSTCLINIC DATE: 03/09/1998 INTERNAL MEDICINE CLINIC SUBJECTIVE: This is a patient of Mp Milton who comes in today with pain exacerbation secondary to her fibromyalgia and chronic low back pain. At the last visit she made a verbal commitment for management of her chronic pain, which included an agreement that Mp was her sole Vicodin systems program manager. She attempted to make an appointment [...]
--- OUTSIDE RECORDS SUMMARY | ~2018-12-30 | XMS | Encounter Summary ---
Demographics + + + | Address | [address] | | | [place] [address] | + + + | Home Phone [...] [place], | | | | | [place] [address] | | + + + + + Care Team Providers + +------+ + | Care Hairpiece Stylist Name | Role | Phone | + [...] [id number] | | | | | | [place], [place] | | | | | | [address] | | | | | | [phone] | | | +--------+ + + + [...] | + + + + + | [facility] | [address] | [place] [address] | | | PATHOLOGY | [address] | | | + + + + + documented in this encounter Visit Diagnoses Not on filedocumented in this encounter"
--- OUTSIDE RECORDS SUMMARY | ~2018-12-30 | XMS | Encounter Summary ---
Demographics + + + | Address | [address] | | | [place] [address] | + + + | Home Phone [...] [place], | | | | | [place] [address] | | + + + + + Care Team Providers + +------+ + | Care Hydro Technician Name | Role | Phone | [...] as of this encounter Progress Notes Interface, Aircraft Structural Design Engineer In - 02/23/2006 5:02 AM PSTCLINIC [...] years ago when she read about an [facility] clinic, and presented by self-referral to [...] medication in September when she moved from [place] to [place] and switched providers. Patient states that since [...] Patient was seen by Dr. Browning in [place], [place], at which time she was given [...] Recommended group therapy. Patient is covered through [facility] and she will investigate possible group therapy at the [facility] system. Patient was seen and interviewed with Dr. Anabelle Garcia. Frederic Koch M.D. Resident, Internal Medicine Anabelle Garcia M.D. Red Hat Linux Engineer, Psychiatry ELDA/ruby d ocumented in this encounter Plan of Treatment Not on filedocumented as of this encounter Visit Diagnoses Not on filedocumented in this encounter"
--- OUTSIDE RECORDS SUMMARY | ~2018-12-30 | XMS | Encounter Summary ---
Demographics + + + | Address | [address] | | | [place] [address] | + + + | Home Phone [...] [place], | | | | | [place] [address] | | + + + + + Care Team Providers + +------+ + | Care Boat Fueler Name | Role | Phone | + [...] of this encounter Progress Notes Interface, Computer Game Designer In - 02/14/2006 5:12 AM PSTINIC DATE: 03/21/1998 INTERNAL MEDICINE CLINIC SUBJECTIVE: Ms. Evans comes in today for follow up of her chronic pain. She has been in a flare for the last two weeks, since her mother became ill after having a fall precipitating a fractured humerus. 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 Wallace Szymanski. Hui Milton M.D. [facility] Wallace Szymanski M.D. [facility] MS/hhk d ocumented in this encounter Plan of Treatment Not on filedocumented as of this encounter Visit Diagnoses Not on filedocumented in this encounter"
--- OUTSIDE RECORDS SUMMARY | ~2018-12-30 | XMS | Encounter Summary ---
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 She has been five times and five [...] bowel sounds. No hepatosplenomegaly noted. Rectal deferred. SOLUTIONS SPECIALIST EXAMINATION: Deferred. EXTREMITIES: Clear of clubbing, cyanosis, [...] M.D. Resident, Internal Medicine Kaleb Velásquez M.D. Communications Clerk, Medicine TORI/tesfaye cc: Wallace Szymanski M.D. Communications Clerk, Internal Medicine Monroe Pruitt M.D. Communications Clerk, Anesthesiology Director of Pain Management Center cc: documente d in this encounter Plan of Treatment Not on filedocumented as of this encounter Visit Diagnoses Not on filedocumented in this encounter
--- OUTSIDE RECORDS SUMMARY | ~2018-12-30 | XMS | Encounter Summary ---
Demographics + + + | Address | [address] | | | [place] [address] | + + + | Home Phone [...] Author | [facility] [place] | | | and [place] | + + + | Organization | [facility] | | | and [place] [...] Team Providers + +------+ + | Care Ship'S Engineer Name | Role | Phone | [...] | [address] | [address] | pulmonary disease, | | | | [place] | [place] | unspecified COPD | | | | [address] | [address] | type (HCC) (Primary | | | | [phone] | [phone] | Dx) | +--------+ + + + [...]
--- OUTSIDE RECORDS SUMMARY | ~2018-12-30 | XMS | Encounter Summary ---
Demographics + + + | Address | [address] | | | [place] [address] | + + + | Home Phone [...] | Author | [facility] [place] | | | and [place] | + + + | Organization | [facility] | | | and [...] + +------+ + | Care Director Of Email Marketing Name | Role | Phone | [...] limb, left | [address] | [address] | | | | | Procedures | [place] | Phone: | | | | | MRI Knee | [address] | [phone] | | | | | Left wo | Phone: | Fax: | | | | | Contrast | [phone] | [phone] | | | | | | Fax: | | | | | | | [phone] | | +--------+--------+ + + + + [...] [place] | | | | | | [address] | [address] Phone: | | | | | | Phone: | [phone] | | | | | | [phone] | Fax: | | | | | | Fax: | [phone] | | | | | | [phone] | | +--------+ + + + + + Encounter Details +--------+---------+ + + + | Date | Type | Department | Care Team | Description | +--------+---------+ + + + | 06/13/ | Office | [facility] | [place], | Nerve entrapment of | | 2016 | Visit | [facility] | MD Jose [address] | lower limb, left | | | | [address] | (Primary Dx) | | | | [address] [place] [address] | [place] | | | | | [address] | [phone] | | | | | [phone] | | | +--------+---------+ + + + [...] NRS Pain Meds 2 OSWESTRY INDEX EQ5D 93892 VAS 60 SURGICAL RISK FACTORS: Diabetes No BMI Body mass index is 22.61 kg/(m^2). 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 S/P LT Knee Replacement 2011 in [place] with Revision surgery [address] Granados. She continues t o have significant pain lateral aspect LT knee. The [facility] EMR was reviewed for relevant information [...] was spent in face to fa ce credit support counselor and advice to patient. This medical [...]
--- OUTSIDE RECORDS SUMMARY | ~2018-12-30 | XMS | Encounter Summary ---
Demographics + + + | Address | [address] | | | [place] [address] | + + + | Home Phone [...] [facility] | | | and [place] | + + + | Organization | [facility] [place] | [...] Team Providers + +------+ + | Care Television Parts Tester Name | Role | Phone | [...] | | 2015 | | [place] | [address] | level (HCC) | | | | ENDOCRINOLOGY [address] | [address] | | | | | [address] | [place] [address] | | | | | [address] [place] | [phone] | | | | | [address] | | | | | | [phone] | | | +--------+ + + + [...] | CORE | | | | [place] [address] | | LABORATORY | | | | [...] | [address] | [place] [address] | [phone] | | [facility] (I) | | [...] (I) | | | | [place] [address] | | | | + + + + + + + + | Specimen | + + | Blood specimen | | (specimen) | + + + + + + + | Performing | Address | City/State/Zipcode | Phone Number | | Organization | | | | + + + + + | [place] | [address] | [place] [address] | [phone] | | [facility] (I) | | [...] | | | | | [place] | | | | | | | [...] | [address] | [place] [address] | [phone] | | [facility] (I) | | | | + + + + + documented in this encounter Visit Diagnoses + + | Diagnosis | + + | Low serum cortisol level (HCC) Glucocorticoid deficiency | + + documented in this encounter"
--- OUTSIDE RECORDS SUMMARY | ~2018-12-30 | XMS | Encounter Summary ---
Demographics + + + | Address | [address] | | | [place] [address] | + + + | Home Phone [...] [place], | | | | | [place] [address] | | + + + + + Care Team Providers + +------+ + | Care Boat Outboard Engine Mechanic Name | Role | Phone | [...] as of this encounter Progress Notes Interface, Personalized Living Manager Nurse In - 02/23/2006 5:02 AM PSTCLINIC DATE: [...] M.D. Resident, Internal Medicine Wallace Szymanski M.D. Roll Tube Setter, Internal Medicine TORI:mau d ocumented in this encounter Plan of Treatment Not on filedocumented as of this encounter Visit Diagnoses Not on filedocumented in this encounter
--- OUTSIDE RECORDS SUMMARY | ~2018-12-30 | XMS | Encounter Summary ---
Demographics + + + | Address | [address] | | | [place] [address] | + + + | Home Phone [...] [place], | | | | | [place] [address] | | + + + + + Care Team Providers + +------+ + | Care Jail Guard Name | Role | Phone | + +------+ + PCP | Unavailable | + +------+ + Encounter Details +--------+ + + + + | Date | Type | Department | Care Team | Description | +--------+ + + + + | 01/01/ | Office | UNKNOWN DEPARTMENT | Note, Outpatient | Progress Note | | 1993 | Visit-Trans | [address] [facility] | | | | [place] | [address] | | | | | | [place], [place] | | | | | | [address] | | | +--------+ + + + [...] of this encounter Progress Notes Interface, Family Manager In - 06/14/2006 5:08 AM PDT [...] after the above studies. Faisal Grijalva M.D. Appraisal Analyst, Neurology JQ:bony cc: DICK ACOSTA MD [address] [address] documented in this encounter Plan of Treatment Not on filedocumented as of this encounter Visit Diagnoses Not on filedocumented in this encounter"
--- OUTSIDE RECORDS SUMMARY | ~2018-12-30 | XMS | Encounter Summary ---
Demographics + + + | Address | [address] | | | [place] [address] | + + + | Home Phone [...] [place], | | | | | [place] [address] | | + + + + + Care Team Providers + +------+ + | Care Executive Business Coach Name | Role | Phone | + +------+ + PCP | Unavailable | + +------+ + Encounter Details +--------+ + + + + | Date | Type | Department | Care Team | Description | +--------+ + + + + | 09/20/ | Office | General Internal | Note, Outpatient | Progress Note | | 1994 | Visit-Trans | Medicine [address] | Clinic | | | | [address] | [address] | | | | | | Mailcode: [id number] | | | | | | Outpatient Clinic | | | | | | [address] | | | | | | [place], [place] | | | | | | [address] | | | | | | [phone] | | | +--------+ + + + [...] of this encounter Progress Notes Interface, Certified Nurses' Aide In - 06/01/2006 3:00 AM PDT CLINIC DATE: 09/20/94 PSYCHIATRY CLINIC: OBSESSIVE-COMPULSIVE DISORDER (OCD) PSYCHIATRIC CLINIC EVALUATION: IDENTIFYING INFORMATION: Ms. Evans is a 39-year-old white female who is self-referred to the OCD Clinic for evaluation of potential obsessive-compulsive disorder symptomatology. Sources of information include the patient who appears to be a reliable historian as well as the [facility] chart including a neuropsychological evaluation conducted [...] Four months later, she was hospitalized at [facility] for 10 days at the recommendation [...] 1994. 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 Since that time, she has been on Social Security disability. Her boyfriend works in an auto shop that they bought several years ago. She has tried to work in the [employer] shop but is unable to tolerate it [...] Monroy M.D. Resident, Psychiatry Jamir Payan M.D. Filament Wound Parts Fabricator, Psychiatry and occurred after her last divorce. [...] 1994. 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 Since that time, she has been on Social Security disability. Her boyfriend works in an auto shop that they bought several years ago. She has tried to work in the [employer] shop but is unable to tolerate it [...] RECOMMENDATIONS: 1. The patient will take the [place] Obsessive-Compulsive computerized test today. She was also [...] Monroy M.D. Resident, Psychiatry Jamir Payan M.D. Filament W[employer] Parts Fabricator, Psychiatry Aaron:bony WOOD:bony C: 10/04/94 shubham documented in this encounter Plan of Treatment Not on filedocumented as of this encounter Visit Diagnoses Not on filedocumented in this encounter
[~2018-12-30 07:00] MED LIST changes: +NORCO 10-325 T1 EACH PO; +XARELTO10 MG PO
--- NOTE | 2018-12-30 07:38 | NUR ---
BEDSIDE REPORT.. PT SITTING UP IN RECLINER ALERT AND ORIENTED. NO REQUESTS OR CONCERNS, VERBALIZED THAT SHE IS GLAD TO BE ABLE TO STAY HER TO GET STRONGER BEFORE DISCHARGE TO HOME. PT IS DISCHARGING FROM INPATIENT INTO SWINGBED THIS AM.
--- NOTE | 2018-12-30 09:30 | NUR ---
PATIENT UP TO BATHROOM WITH FWW ONE PERSON ASSIST. BATH DONE WITH BATH WIPES. CLEAN LINENS ON BED. PATIENT UP AMBULATED AROUND FULL BILL MOORE'S SLOUGH ON MED SURG WITH FWW ONE PERSON ASSIST ON 2L NC. PATIENT BACK TO BED. FRESH ICE TEA GIVEN. FRESH ICE PACK APPLIED. CALL BUTTON IN REACH. PATIENT REFUSED ORAL CARE. NO OTHER NEEDS AT THIS TIME.
--- NOTE | 2018-12-30 11:16 | NUR ---
PT BACK TO RECLINER AFTER AMBULATING IN HALLS WITH PHYSICAL THERAPY KRISTINA. PT TOLERATED WELL NO COMPLIANT OF PAIN WHILE WALKING
--- NOTE | 2018-12-30 11:36 | NUR ---
Met with Litzy. Explained Transition care and she states understanding. She again states she does not have a nebulizer at home and is eating one meal per day with [employer]. Discussed prior to dc I will request MOW for her and I am currently working with [facility] to get a replacement nebulizer.
--- NOTE | 2018-12-30 12:49 | NUR ---
pt reports pain 7/10 at left hip, dilaudid po prn given now
--- NOTE | 2018-12-30 13:44 | NUR ---
Met with Litzy today. Litzy is doing her coloring with her colored pencils. She states this is really helping her hands as she is not smoking in the hospital, and wants to remain smoke free when she leaves the hospital. We discussed her goals, she feels she is doing better with her walking, currently only walking first thing in the morning, and then feels too tired to walk again during the day. She admits that she needs to get stronger. She has not done any stairs yet, but does realize that she will need to attempt this. She states she does have neighbors, but she only considers them as acquaintances. She is concerned about getting food when she gets home, states that she does not cook at her house, but goes to the [employer] once per day for a meal. She desires to be able to drive again after going home, and wants to resume going to the [employer] for food. She states she has very little food in her house, and that her shelves stops keep breaking. She lives at [facility], she states that she has talked to the capacity manager, Gabe about the situation and was told that she can go to [employer] and buy them herself. She states she needs help with that from her Signs Sales Representative at [employer], Monique Kearney. She also has concerns because her cat recently . She is happy that her cat lived 17 years. Patient does get up and ambulate to the restroom while this RN is in the room. She is able to do this with minimal standby only assist.
--- NOTE | 2018-12-30 13:54 | NUR ---
In further conversation, Litzy states that she has had meals on wheels at her house but then they "cut her off". She really desires to go to [employer] and eat. She is open to a caregiver checking in on her home, perhaps [facility], or some other agency. She feels that she may benefit from some help when she goes home. Pt is pleasant to deal with, she oriented to person/place/time.
--- NOTE | 2018-12-30 14:30 | NUR ---
PT UP WALKING IN COTTER WITH STAFF. SHE IS ALL SMILES-HAD A GOOD NIGHTS' SLEEP AND MENTIONED THAT HER OUTSIDE MACHINIST SUPERVISOR HAD STOPPED BY. SHE STATED GOD IS WORKING, GAVE ENCOURAGEMENT. WILL FOLLOW NEEDED
--- NOTE | 2018-12-30 15:24 | NUR ---
PT SITTING UP IN BED LEARNING TO JAZZ WITH JAYCE ALL SOURCE COLLECTION MANAGER NURSE AT THIS TIME.
--- NOTE | 2018-12-30 15:48 | NUR ---
PT REQUEST PAIN MEDICATION FOR 08/27 PAIN. 2 NORCO 10/325 TABS PO PRN GIVEN AT THIS TIME
--- NOTE | 2018-12-30 16:23 | NUR ---
PT REQUESTS PAIN MEDCICATION AND ANXIETY MEDICATIONS OFTEN CAN BE GIVEN. SHE VERBALIZED SHE WAS GOING TO LEAVE TO SMOKE IF SHE DIDN'T GET MORE NICOTINE REPLACEMENT, NIO FOR LOZENGES, DISCUSSED WITH SHE SAID NOT TO GIVE VERY OFTEN TO AVOID OVERDOSE AND NOT TO IMPEDE HEALING. PT HAS BEEN UP AMBULATING IN HALLS WITH STAFF AND PHYSICAL THERAPY. THE RED AREA ON LEFT LEG OUTLINED BELOW SURGERY SITE IS IMPROVING FROM SATURDAY LINES MARKED.
--- NOTE | 2018-12-30 19:10 | NUR ---
PT RESTING IN BED, WATCHING TV.SHIFT REPORT RECIEVED FROM GARCIA LANZA. NO NEEDS AT THIS TIME. CALL LIGHT IN REACH.
--- NOTE | 2018-12-30 21:01 | NUR ---
CALL LIGHT ANSWERED. 1PA WITH FWW TO RESTROOM FOR VOID AND BACK TO BED. CALL LIGHT AND PERSONAL SUPPLIES IN REACH.
--- NOTE | 2018-12-30 21:50 | NUR ---
PT APPEARS CONFUSED TO EVENT AND TIME. RT CHANGES O2 NC TO 3L. ASSESSMENT COMPLETED. PERRLA AT 6MM. LUNGS CLEAR IN UPPER LOBES AND DIMINISHED IN LOWER LOBES. REDNESS WITHIN LINES NEAR LEFT HIP INCISION. SWELLING NOTED IN UPPER LEFT LEG. INCISION CDI, OPEN TO AIR. PAIN 8/10. PRN PAIN MED PROVIDED. SCHEDULED MEDS PROVIDED. NO OTHER NEEDS. BED ALARM ON, CALL LIGHT IN REACH.
--- NOTE | 2018-12-30 22:22 | NUR ---
SANDWICH GIVEN TO PT PER HER REQUEST. PT ELEVATE HEAD OF BED TO EAT. CALL LIGHT WITHIN REACH.
--- NOTE | 2018-12-30 23:27 | NUR ---
PT RESTING IN BED, EYES CLOSED. CPOX 95% ON 3L NC. O2 TITRATED TO 2L NC. SCDs ON. RR 16, EVEN, UNLABORED. BED ALARM ON, CALL LIGHT IN REACH.
--- NOTE | 2018-12-31 01:26 | NUR ---
PT RESTING IN BED, EYES CLOSED. CPOX 92%, 2L NC. RR 20, EVEN, UNLABORED. CALL LIGHT IN REACH.
--- NOTE | 2018-12-31 01:51 | NUR ---
SBA USING WALKER TO THE BATHROOM AND BACK TO BED. PRIMARY RN IS IN THE ROOM WITH PATIENT.
--- NOTE | 2018-12-31 02:30 | NUR ---
PT CPOX RANGING NEAR 84% ON 2L NC. NC ADJUSTED. NEW PROBE PLACE ON FINGER. NO CHNAGES TO CPOX, PT PLACED ON 3 L NC. CPOX UP TO 90%. NO OTHER NEEDS. CALL LIGHT IN REACH.
--- NOTE | 2018-12-31 03:35 | NUR ---
PT RESTING IN BED, EYES CLOSED. RR 18, EVEN, UNLABORED. CPOX 95% ON 3L NC, TITRATED TO 2L NC. CPOX 90%. CALL LIGHT IN REACH.
--- NOTE | 2018-12-31 05:38 | NUR ---
PT HAS SLEPT ON AND OFF THIS SHIFT. PT HAD SOME CONFUSION ABOUT TIME AND EVENT SEVERAL TIMES, PT REORIENTED AND EDUCATED. SPO2 RANGED NEAR 90% ON 2L NC WITH SEVERAL EPISODES OF SPO2 DECREASING TO MID 80S AND REQUIRING 3L NC FOR A DURATION WHILE SLEEPING. REDNESS ON UPPER LEFT THIGH HAS NOT PROGRESSED. INCISION CDI. LUNGS CLEAR IN UPPER LOBES AND DIMINISHED IN LOWER LOBES. FWW, 1P SBA. PAIN MANAGED WITH PRN MEDS.
--- NOTE | 2018-12-31 06:08 | NUR ---
PT STATES PAIN 6/10, PRN PAIN MED PROVIDED.ICE TEA PROVIDED. CPOX 90% 2L NC. NO OTHER NEEDS AT THIS TIME.
--- NOTE | 2018-12-31 07:04 | NUR ---
Pt resting supine in bed alert and oriented, pt remains on 2lpnc. Pt Requested lights off and privacy so this was provided. Call light and h2o in reach. report received from gomez sher rn.
--- NOTE | 2018-12-31 08:35 | NUR ---
PT RESTING SUPINE IN BED ALERT AND ORIENTED CALL LIGHT AND H2O IN REACH. PT ASSESSMENT COMPLETED. REPORTS SOME TOLERABLE PAIN TO LEFT HIP. PT DENIES NEEDS OR CONCERNS. PT DENIES SOB OR NAUSEA.
--- NOTE | 2018-12-31 12:45 | NUR ---
PT SOUND ASLEEP, WILL CHECK BACK LATER
--- NOTE | 2018-12-31 13:15 | NUR ---
PATIENT UP TO CHAIR WASHING UP GOWN CHANGED. LINENS CHANGED ON BED. FRESH ICE TEA GIVEN. PATIENT REFUSED TO GO FOR WALK. PATIENT BACK TO BED TALKING ON PHONE. CALL BUTTON IN REACH. BED ALARM ON.
--- NOTE | 2018-12-31 14:13 | NUR ---
In to speak with pt. and she is sleeping.
--- NOTE | 2018-12-31 16:55 | NUR ---
PT UP WALKING WITH LICO PHYSICAL THERAPIST. PT APPEARS TO BE IN NO ACUTE DISTRESS. CALL LIGHT AND H2O IN REACH.
--- NOTE | 2018-12-31 18:13 | NUR ---
PT COMPLAINT OF MOUTH PAIN, TONGUE AND THROAT REDDENED, PT STATES SHE TAKE NYSTATIN ORAL AT HOME, MD CALLED VERBAL ORDER FOR NYSTIN SWISH AND SWALLOW 500,00 UNITS QID PRN.
--- NOTE | 2018-12-31 19:10 | NUR ---
SHIFT REPORT RECIEVED FROM SMITHA LANZA. PT RESTING IN BED, WATCHING TV. PT DENIES PAIN. RT IN ROOM. NO NEEDS AT THIS TIME. CALL LIGHT IN REACH. BED ALARM ON.
--- NOTE | 2018-12-31 19:44 | NUR ---
YOGURT PROVIDED TO pt REQUESTED. RT IN ROOM FOR SCHEDULED NEB TREATMENT. CALL LIGHT IN REACH. pt HAS NO ADDITIONAL REQUESTS AT THIS TIME.
--- NOTE | 2018-12-31 21:46 | NUR ---
pt DIAPHORETIC, ARABELLA. VSS. CBG 114. RN DELROY IN ROOM.
--- NOTE | 2018-12-31 21:50 | NUR ---
PT ASSESSMENT COMPLETED. PAIN 4/10, PRN PAIN MED PROVIDED. PT HAS PAIN IN CENTER OF CHEST, SWEATING. VITALS REPEATED, WNL. PT ANXIOUS, PRN ANXIETY MED PROVIDED.
--- NOTE | 2018-12-31 22:05 | NUR ---
MD NOTIFIED OF PAIN AND SWEATING. PAIN IN CHEST HAS RESOLVED AT THIS TIME. NO ORDERS RECIEVED. WILL CALL MD IF SYMPTOMS RETURN.
--- NOTE | 2018-12-31 23:23 | NUR ---
ROUNDED CHARGE. PATIENT IS RESTING IN BED WATCHING TV. PATIENT DENIES ANY NEEDS. PATIENT DENIES ANY COMMENTS, QUESTIONS OR CONCERNS. NO NEEDS NOTED. CALL LIGHT IN REACH.
--- NOTE | 2019-01-01 01:29 | NUR ---
PT RESTING IN BED, EYES CLOSED. RR 20, EVEN, UNLABORED. CPOX 90% ON 2L NC. CALL LIGHT IN REACH.
--- NOTE | 2019-01-01 02:32 | NUR ---
CALL LIGHT ANSWERED. SBA WITH FWW TO RESTROOM FOR VOID AND BACK TO BED. pt STATES "I'M PANTING, HAVING A HARD TIME CATCHING MY BREATH." SPO2 88% ON CONT. PULSE OX WITH 2L OXYGEN BY NC, INCREASED TO 3L OXYGEN BY NC, SPO2 90%. RT IN pt ROOM FOR BREATHING TREATMENT.
--- NOTE | 2019-01-01 03:35 | NUR ---
PT RESTING IN BED, EYES CLOSED. RR 20, EVEN, UNLABORED. CPOX 94% ON 3L NC, TITRATED TO 2L NC. CPOX AT 90% CALL LIGHT IN REACH.
--- NOTE | 2019-01-01 04:54 | NUR ---
PT NICOTINE PATCH FELL OFF DURING THE NIGHT. PT REQUESTS A NEW PATCH NOW, PATCH PROVIDED. PT STATES SHE IS IN 4/10 PAIN IN LLE. PRN PAIN MED PROVIDED. NO OTHER NEEDS. CALL LIGHT IN REACH.
--- NOTE | 2019-01-01 06:23 | NUR ---
PT SLEPT OFF AND ON THIS SHIFT. PAIN MANAGED WELL WITH SCHEDULED AND PRN PAIN MEDS AND ICE PACKS. A&O THIS SHIFT. VSS. PT WAS ON 2L NC TRENDING IN THE LOW-MID 90S MOST OF THE SHIFT. SHE HAD A COUPLE EPISODES OF O2 SAT DROPPING TO THE MID 80S, PT WAS MOVED TO 3L NC FOR A SHORT AMOUNT OF TIME THEN TITRATED BACK TO 2L NC.
--- NOTE | 2019-01-01 07:59 | NUR ---
Pt sitting up in chair watching tv and just completed breathing treatment per rt. Pt requested and received prn po noctine lozenge and prn oral swish of nystatin- see emar. Call light and h2o in reach. No further needs or concerns voiced. Am meds also administered.
--- NOTE | 2019-01-01 09:10 | NUR ---
PT REPORTS ELEVATED ACHING PAIN OF 5/10 TO LEFT HIP. PRN PO OXY ADMINISTERED PER PT REQUEST. ASSESSMENT COMPLETED. CALL LIGHT AND H2O IN REACH. NO FURTHER NEEDS OR CONCERNS VOICED.
--- NOTE | 2019-01-01 09:22 | NUR ---
MULTI-DISCIPLINARY MEETING FOR SWING BED DONE THIS MORNING. PATIENT GIVEN 10MG OF PO OXYCODONE FOR 5/10 LEFT HIP HIP PAIN.
--- NOTE | 2019-01-01 09:39 | NUR ---
PT WAS UP IN CHAIR FOR BREAKFAST. PT RESTING IN BED.
--- NOTE | 2019-01-01 09:40 | NUR ---
Attended MDT meeting this a.m., pt reports that she is not ready to go home yet. She seems pleased that she has gained some weight while in the hospital, she is concerned about keeping weight on when she goes home secondary to lack of desire to eat, lack of desire to fix food, and broken cupboards in her home, making it dificult to store food. We discussed options with her issues at home, and resources, Litzy is agreeable to addtional resources to help with her situation at home as discussed. She was also able to recognize her transitional care team members, their roles in her care, and with her, her goals were updated and written on her transitional care board in the room so that all staff members are aware of her goals for discharge.
--- NOTE | 2019-01-01 10:51 | NUR ---
MDT meeting completed with Ot, PC, TC cyber workforce developer and manager, [employer] Tier, RT, CM, and DC marine air ground task force planners present. See DC marine air ground task force planners note. Goal to DC next Saturday with needed DME and HH PT, OT, and Bath aid. Called [employer] and requested Monique Kearney Case Manage this client. [facility] this pt will have on going needs at discharge.
--- NOTE | 2019-01-01 11:57 | NUR ---
PT ASSISTED UP FROM CHAIR TO BED PER HER REQEUST. PT REMAINS ON 2LPNC AND NO REPORT OF SOB OR [place] AND PT STATES PAIN TOLERABEL AT THIS TIME TO LEFT HIP. CALL LIGHT AND H2O IN REACH. NO FURTHER NEEDS OR CONCERNS VOICED.
--- NOTE | 2019-01-01 13:12 | NUR ---
PT WALKED 2 LAPS WITH HOUSEKEEPING AIDE AROUND [employer] COT[employer]. PT RESTING IN BED.
--- NOTE | 2019-01-01 15:06 | NUR ---
PT RESTING IN SEMIFOWLERS POSITION IN BED ALERT AND ORIENTED. PT DENIES NEEDS OR CONCERNS. SHCEDULED 1500 MED ADMINISTERED -CALL LIGHT AND H2O IN REACH.
--- NOTE | 2019-01-01 15:25 | NUR ---
PT WALKED 2 FULL LAPS WITH DOWEL PIN WORKER AROUND [employer]. PT STATES POSSIBLE SHOWER LATER.
--- NOTE | 2019-01-01 16:47 | NUR ---
PT RESTING IN SEMIFOWLERS POSITION IN BED ALERT AND ORIENTED. CALL LIGHT AND H2O IN REACH. PT REQEUSTED AND RECEIVED PRN NICOTINE LOZANGE. NO FURTHER NEEDS OR CONCERNS VOICED.
--- NOTE | 2019-01-01 17:14 | NUR ---
PT ASSISTED UP TO RESTROOM AND BACK TO BED WITH SBA. CALL LIGHT AND H2O IN REACH. PT DENIES NEEDS OR CONCERNS. FAMILY IN TO SEE PATIENT.
--- NOTE | 2019-01-01 19:00 | NUR ---
SHIFT REPORT RECEIVEDF NATANAEL BONE AT BEDSIDE. PT AWAKE AND RESTING IN BED, CPOX IN PLACE. PT ON 2LNC, O2 SAT AND HR WNL. PT DENIES ADDITIONAL NEEDS AT THIS TIME, CALL LIGHT IN REACH.
--- NOTE | 2019-01-01 20:50 | NUR ---
ASSESSMENT COMPLETE, SCHEDULED MEDICATIONS GIVEN (SEE EMAR). PT A/OX4, BED ALRM ON FOR SAFETY. HIP PRECAUTIONS IN PLACE, PILLOW PLACED IN BETWEEN BLE. SITE TO LEFT HIP CONTRACT LEAD, JASMEET IN PLACE. WELL APPROXIMATED. GENERALIZED EDEMA AND SLIGHT REDDNESS NOTED TO SITE. WILL MONITOR. PT REPORTS 4-5/10 PAIN, PRN OXYCODONE ADMINISTERED. VSS, CPOX IN PLACE. PT ON 2LNC. BILATERAL PEDAL PULSES OBTAINED. NO FURTHER NEEDS, CALL LIGHT IN REACH.
--- NOTE | 2019-01-01 22:40 | NUR ---
PT TALKING IN THE PHONE, DENIES NEEDS. CALL LIGHT IN REACH.
--- NOTE | 2019-01-02 00:31 | NUR ---
PT IN ROOM VISITING WITH FAMILY, 2LNC IN PLACE. CPOX ON, O2 SAT AND HR WNL. NO NEEDS VERBALIZED, CALL LIGHT IN REACH. BED ALARM ON.
--- NOTE | 2019-01-02 00:45 | NUR ---
PER PT REQUEST, RT CALLED FOR PRN BREATHING TREATMENT. PT ON 2LNC, CPOX IN PLACE. O2 SAT 89-90%. PRN ANXIETY MEDICATION OFFERED TO PROMOTE RELAXATION, KINDLY DECLINED BY PT. NO FURTHER NEEDS, CALL LIGHT IN REACH.
--- NOTE | 2019-01-02 01:30 | NUR ---
PT AWAKE AND REPORTING 7/10 PAIN. PT FOUND IN BED RUBBING LEFT KNEE. PRN OXYCODONE AND PRN TYLENOL ADMINSITERED PER PT REQUEST. PRN ANXIETY MEDICATION ALSO GIVEN, PT ON 2LNC, CPOX IN PLACE. BED ALARM ON. NO FURTHER NEEDS, CALL LIGHT IN REACH.
--- NOTE | 2019-01-02 03:23 | NUR ---
CPOX ALARM GOING OFF. THIS RN AND POOL PIÑA IN ROOM TO ASSESS. O2 SAT MAINTAINING LOW TO MID 80'S ON 2-3LNC. PT MOUTH BREATHING, PT PLACED ON 2L OXYMASK. O2 SAT NOW ABOVE 90%, HR WNL. NO DISTRESS NOTED, CALL LIGHT IN REACH.
--- NOTE | 2019-01-02 04:32 | NUR ---
ASSISTED PT TO THE RESTROOM, 1PA WITH FWW. SHE IS BACK IN BED AND DENIES FURTHER NEEDS, CALL LIGHT IS CLOSE AND CPOX IN PLACE.
--- NOTE | 2019-01-02 04:39 | NUR ---
PT RESTING IN BED, EYES CLOSED. CPOX IN PLACE, PT ON 2L OXY MASK. O2 SAT AND HR WNL. BED ALARM ON FOR SAFETY. CALL LIGHT IN REACH.
--- NOTE | 2019-01-02 05:34 | NUR ---
PT HAD UNEVENTFUL NIGHT, HAD VISITOR DURING FIRST HALF OF SHIFT. VSS, CPOX IN PLACE. PT MOUTH BREATHER, PLACED ON OXYMASK. BED ALARM ON FOR SAFETY, PT 1PA WITH FWW. REGULAR DIET, TOLERATING WELL. NO NAUSEA. PAIN CONTROLLED WITH PRN OXYCODONE AND PRN TYLENOL. INCISION TO HIP SUSIE, WELL APPROXIMATED, JASMEET IN PLACE. ICE PRN.
--- NOTE | 2019-01-02 06:26 | NUR ---
PT UP SBA WITH FWW TO VOID AND BACK TO BED. PT REPORTS FEELING "WHEEZY". O2 SAT 90-91% ON 2L OXYMASK, MINIMAL WHEEZES NOTED. NO DISTRESS AT THIS TIME. PT INSTRUCTED TO DEEP BREATH AND NOTIFY NURSING STAFF IF SHE STILL WANTS BREATHING TREATMENT. WILL MONITOR. CALL LIGHT IN REACH, BED ALARM ON.
--- NOTE | 2019-01-02 07:20 | NUR ---
PT RESTING SUPINE IN BED, EYES CLOSED AND RESPIRATIONS EVEN AND UNLABORED ON 2L PER OXYMASK. CALL LIGHT AND H2O IN REACH. PT APPEARS TO BE SLEEPING COMFORTABLY. REPORT RECEIVED FROM POOL RUIZ.
--- NOTE | 2019-01-02 09:00 | NUR ---
CALL LIGHT ANSWERED. PATIENT SITTING UP IN CHAIR. OCCUPATIONAL THERAPIST IN ROOM. LINENS CHANGED. PATIENT ASKS FOR PAIN MEDICINE. RN NOTIFIED. CALL LIGHT WITHIN REACH. NO OTHER NEEDS AT THIS TIME
--- NOTE | 2019-01-02 10:03 | NUR ---
PATIENT SITTING UP IN CHAIR. VITAL SIGNS AND I&O DONE. CALL LIGHT WITHIN REACH NO OTHER NEEDS AT THIS TIME
--- NOTE | 2019-01-02 11:05 | NUR ---
PT SITTING UP IN CHAIR, REPORTS PAIN TO LEFT HIP OF 5/10. PT REQUESTED AND RECEIVED PRN PO ANALGESIC -SEE EMAR.
--- NOTE | 2019-01-02 11:37 | NUR ---
PT RESTING SUPINE IN BED ALERT AND ORIENTED, PT REQUESTED AND RECEIVED PRN PO PSEUDOGEST FOR REPORTED SINUS CONGESTION. CALL LIGHT AND H2O IN REACH. NO FURTHER NEEDS OR CONCERNS VOICED.
--- NOTE | 2019-01-02 11:53 | NUR ---
Received a return call from Monique Kearney from [employer]. Update given and she will assist pt to get cupboards in house fixed. She also states pt spends the majority of her income on cannabis. They agree to follow this pt. on dc. She suggests a referral to [employer] for an evaluation and I will call them. I also called [facility] to confirm if they had completed the order for her nebulizer and they will deliver to her today. Let them know she will need 02 on dc and plan to dc is next Saturday. They state she may not qualify as she as dxof pneumonia. Called [employer], worker of the day, Katlyn, and requested evaluation by phone message as she did not answer. Requested she return my call. Called [facility] and requested they evaluate pt. for Meals on wheels. OT is recommending the following equipment on dc: 1. Sock aid 2. Brake Lining Finisher Asbestos 3. Shower transfer bench. She states she does not have money to pay for these items. I will make a referral to Kaylynn SANCHEZ. answer
--- NOTE | 2019-01-02 12:27 | NUR ---
PT SITTING IN CHAIR, ON NCO2. BIG SMILE, GOOD VISIT. ENCOURAGED PT TO MAYBE CONSIDER A DIFFERENT LIVING SITUATION. SHE SAID SHE WOULD THINK ABOUT IT. I EXTENDED A BLESSING, WILL FOLLOW NEEDED
--- NOTE | 2019-01-02 13:29 | NUR ---
PATIENT RESTING IN BED. I&O DONE. CALL LIGHT WITHIN REACH. NO OTHER NEEDS AT THIS TIME
--- NOTE | 2019-01-02 13:40 | NUR ---
CALL LIGHT ANSWERED. PATIENT RESTING IN BED. PATIENT GOES TO USE BATHROOM. PATIENT USES WALKER. ONE PERSON ASSISTING. CALL LIGHT WILL [place]. NO OTHER NEEDS AT THIS TIME
--- NOTE | 2019-01-02 14:15 | NUR ---
PT SITTING UP IN HIGH FOWLERS POSITION IN BED ALERT AND ORIENTED. CALL LIGHT AND H2O IN REACH. PT ASSESSMENT COMPLETED. NO NEEDS OR CONCERNS VOICED.
--- NOTE | 2019-01-02 16:34 | NUR ---
In to answer call light, pt assisted with getting her charging cable per her request. Pt denies further needs and states her pain is tolerable and she does not feel sob or nauseated. No futher needs or concerns voiced.
--- NOTE | 2019-01-02 17:34 | NUR ---
PATIENT RESTING IN BED. I&O DONE. CALL LIGHT WITHIN REACH. NO OTHER NEEDS AT THIS TIME
--- NOTE | 2019-01-02 18:12 | NUR ---
PT REPORTS 7/10 PAIN TO LEFT HIP. PT REQUESTED ADN RECEIVED PRN PO TYLENOL. CALL LIGHT AND H2O IN REACH. NO FURTHER NEEDS OR CONCERNS VOICED.
--- NOTE | 2019-01-02 18:32 | NUR ---
PT PROVIDED WITH FRESH BREWED ICED TEA PER HER REQUEST. PT'S FAMILY IN ROOM TO VISIT PATIENT. NO FURTHER NEEDS OR CONCERNS VOICED. CALL LIGHT AND H2O IN REACH.
--- NOTE | 2019-01-02 19:25 | NUR ---
SHIFT REPORT RECEIVED FROM DAYSHIFT POOL BONE AT BEDSIDE. RT IN ROOM FOR BREATHING TREATMENT, DENIES NEEDS. CALL LIGHT IN REACH. CPOX IN PLACE, O2 SAT AND HR WNL. BOARD UPDATED, FAMILY IN ROOM.
--- NOTE | 2019-01-02 20:23 | NUR ---
ASSESSMENT COMPLETE, VSS. PT AWAKE AND RESTING IN BED WATCHING TELEVISION AND LAUGHING. PT REPORTS 4/10 TOLERABLE PAIN IN LEFT HIP. INCISION OPEN TO AIR, WELL APPROXIMATED WITH INTACT JASMEET. GENERALIZED WARMTH AND REDDNESS NOTED TO LEFT HIP. ICE TO SITE, WILL CONTINUE TO MONITOR. CPOX IN PLACE, PT ON 2LNC, O2 SAT AND HR WNL. NO DISTRESS NOTED. NO FURTHER NEEDS, CALL LIGHT IN REACH. BED ALARM ON.
--- NOTE | 2019-01-02 22:19 | NUR ---
PT UP SBA WITH FWW TO VOID AND IS NOW BACK IN BED. ALARM ON FOR SAFETY. HEAT PACK FOR LEFT KNEE GIVEN PER PT REQUEST. NO ADDITIONAL NEEDS, CALL LIGHT IN REACH.
--- NOTE | 2019-01-03 00:06 | NUR ---
PRN TYLENOL AND PRN OXYCODONE ADMINISTERED FOR 7/10 PAIN IN LEFT KNEE AND LEFT HIP. WARM PACK PROVIDED TO LEFT KNEE PER PT REQUEST. NO ADDITIONAL NEEDS, CALL LIGHT IN REACH. BED ALARM ON.
--- NOTE | 2019-01-03 00:44 | NUR ---
PT ON 2LNC, O2 SAT DROPPING AND SUSTAINING IN MID 80'S. PT PLACED ON 2L OXYMASK. MAINTAINING ABOVE 90%. NO FURTHER NEEDS, CALL LIGHT IN REACH.
--- NOTE | 2019-01-03 01:33 | NUR ---
PT WAS SLEEPING SOUNDLY AND CPOX ALARMED, INCREASED 02 TO 3 L ON OXYMASK. CALL LIGHT IS CLOSE AND BED ALARM IS ON.
--- NOTE | 2019-01-03 02:07 | NUR ---
PT RESTING QUIETLY IN BED, ON 3LOXYMASK, CPOX ON. O2 SAT AND HR WNL. CALL LIGHT IN REACH, BED ALARM ON.
--- NOTE | 2019-01-03 03:57 | NUR ---
BED ALARM GOING OFF, PT ATTEMPTING TO GO TO THE BATHROOM. SBA WITH FWW TO VOID, PT BACK IN BACK. PT MID 80'S ON RA, 3L OXYMASK PLACED ON PT, O2 RETURNED WNL. NO FURTHER NEEDS, CALL LIGHT IN REACH, BED ALARM ON.
--- NOTE | 2019-01-03 05:38 | NUR ---
PT CALLED FOR HELP TO THE RESTROOM. SBA WITH FWW AND BACK TO BED. ADMINISTERED OXYCODONE PER PT REQUEST. SHE RATES PAIN AT 3/10 BUT STATES SHE WANTS TO STAY ON TOP OF IT BEFORE IT CLIMBS. PT DENIES FURTHER NEEDS, CALL LIGHT IS CLOSE AND BED ALARM IS ON.
--- NOTE | 2019-01-03 06:23 | NUR ---
PT HAD A GOOD NIGHT, VSS. CPOX IN PLACE, 2LNC OR OXYMASK. PT REMAINS IMPULSIVE AT TIMES, BED ALARM ON. PAIN CONTROLLED WITH PRN TYLENOL AND OXYCODONE. REGULAR DIET, TOLERATING WELL. NO NAUSEA. INCISION TO LEFT HIP APPRENTICE EMBALMER, WELL APPROXIMATED, JASMEET IN PLACE.
--- NOTE | 2019-01-03 06:54 | NUR ---
PT TITRATED DOWN TO 2LNC, O2 SAT AND HR WNL. CPOX IN PLACE, NO DISTRESS NOTED. BED ALARM ON, CALL LIGHT IN REACH.
--- NOTE | 2019-01-03 08:00 | NUR ---
PATIENT IS CURRENTLY IN HER CHAIR, WAITING FOR HER BREAKFAST, PATIENT IS WAITING TO SEE IF SHE SEES THE DOCTOR TODAY
--- NOTE | 2019-01-03 09:45 | NUR ---
PT RESTING SUPINE IN BED ALERT AND ORIENTED. CALL LIGHT AND H2O IN REACH. PT ASSESSMENT COMPLETED. PT REPORTS INCREASED ACHING PAIN TO LEFT HIP. PT ALSO REPORTS AGITATION. PT REQEUSTED AND RECEIVED PRN PO OXYCODONE, VISTARIL AND NICOTINE LOZENGE. AM MEDS ALSO ADMINISTERED -SEE EMAR. VSS. NO FURTHER NEEDS OR CONCERNS VOICED.
--- NOTE | 2019-01-03 10:00 | NUR ---
PATIENT CARLOS SZYMANSKI, PATEINT IS WAITING TO WORK WITH PHYSICAL THERAPY
--- NOTE | 2019-01-03 12:00 | NUR ---
PATIENT DID NOT WANT TO EAT LUNCH, THIS TRIMMER SORTER ORDERED THE PATIEINT SOME [place]INICAN YOGURT AND AN APPLE ENSURE DRINK, SHE ATE AND DRANK BOTH
--- NOTE | 2019-01-03 14:00 | NUR ---
PATIENT IS CURRENTLY RESTING IN BED, PATIENT ASKED TO GO ON A WALK
--- NOTE | 2019-01-03 16:26 | NUR ---
PATELT WENT ON A WALK, PATIENT JUST WANTS [place] YOGURT AND ENSURE FOR DINNER
--- NOTE | 2019-01-03 20:40 | NUR ---
PT REQUESTED NICOTINE PIERRE. SHE STATES THAT SHE IS MOTIVATED TO MAKE SOME CHANGES IN HER LIFE AND QUIT SMOKING. SHE DENIES FURTHER NEEDS AT THIS TIME AND CALL LIGHT IS CLSOE.
--- NOTE | 2019-01-03 21:06 | NUR ---
HELPED PT TO THE BATHROOM AND BACK TO BED WIT HER FWW. FRESH ICE PACK GIVEN. BEDSIDE TABLE AND CALL LIGHT IN REACH.
--- NOTE | 2019-01-03 21:17 | NUR ---
VITALS AND I&OS DONE AND CHARTED. FRESH ICE GIVEN FOR HER DRINKS. BEDSIDE TABLE AND CALL LIGHT IN REACH.
--- NOTE | 2019-01-03 21:20 | NUR ---
ASST C/ TAKING PT'S VITAS, GAVE FRESH ICE IN PT'S TEA CUP, LEFT PT IN CARE OF RN C/ CALL LIGHT/BS TABLE IN PLACE
--- NOTE | 2019-01-03 21:27 | NUR ---
PT AAOX4. VITALS WNL. BUL CLEAR, BLL COURSE, I/S USED, OCANSIONAL COUGH, 2L O2. BOWEL TONES ACTIVE. VOIDING QS. GENERALIZED EDEMA TO LEFT HIP, REDNESS OUTLINED, DRY, JASMEET IN PLACE. ICE PACK IN PLACE. SCD IN PLACE AND EDUCATION PROVIDED. DENIES OTHER NEEDS. CALL LGHT WITHIN REACH.
--- NOTE | 2019-01-03 23:08 | NUR ---
PT RESTING WITH EYES CLOSED. PATCH REMOVED FROM LEFT KNEE. PT REMAINS RESTFUL. CALL LIGHT WITHIN REACH.
--- NOTE | 2019-01-04 00:35 | NUR ---
PT RESTING WITH EYES CLOSED. RESPIRATIONS EVEN AND UNLABORED. NO ACUTE DISTRESS NOTED. O2 MONITOR REMAINS IN PLACE.
--- NOTE | 2019-01-04 01:50 | NUR ---
SBA PT TO TOILET AND BK TO BED
--- NOTE | 2019-01-04 02:00 | NUR ---
PT RESTING WITH EYES CLOSED. NO ACUTE DISTRESS NOTED.
--- NOTE | 2019-01-04 02:55 | NUR ---
SBA PT TO TOILET, SBA PT BK INTO BED, PT ASKED ABT BREATHING TREATMENT, INFORMED RN/RT
--- NOTE | 2019-01-04 04:00 | NUR ---
PT REMAINS RESTFULL WITH NO ACUTE DISTRESS
--- NOTE | 2019-01-04 06:05 | NUR ---
PT CALLED FOR ASSISTANCE TO THE RESTROOM. SHE IS NOW BACK IN BED AND DENIES NEEDS. CALL LIGHT IS WITHIN REACH.
--- NOTE | 2019-01-04 06:10 | NUR ---
PT REQUESTED NICOTINE LOZENGE AND SHE DENIES FURTHER NEEDS. CALL LIGHT IS CLOSE.
--- NOTE | 2019-01-04 06:45 | NUR ---
pt CALLED FOR A NEB TREATMENT, NOT AVAILABLE TO GIVE AT THIS TIME. pt ASSESSED, REPORTED SOB THAT PASSED AFTER NICOTINE LOZENGE UTILIZED. NO RESPIRATORTY DISTRESS NOTED, RESPIRATIONS REGULAR AND UNLABORED, SATS >90. pt AGREEABLE TO WAITING UNTIL TIME FOR NEXT TREATMENT. RT AND PRIMARY RN INFORMED.
--- NOTE | 2019-01-04 07:00 | NUR ---
PT RESTING SUPINE IN BED ALERT AND ORIENTED. CALL LIGHT AND H2O IN REACH. NO NEEDS OR CONCERNS VOICED. BEDSIDE REPORT RECEIVED FROM POOL HEREDIA.
--- NOTE | 2019-01-04 07:45 | NUR ---
PT REPORTS PAIN TO LEFT HIP. PT STATES "I THOUGHT I HAD THE OXY AT 330AM" INFORMED PT THAT HER LAST OXYCODONE WAS ADMINISTERED AT 0430 AND THAT IT COULD ONLY BE ADMINISTERED EVERY 4 HOURS. PT WAS PROVIDED WITH ICE PACK FOR COMFORT PER REQUEST. PT STATES PAIN IS TOLERABLE AT THIS TIME. CALL LIGHT AND H2O IN REACH. NO FURTHER NEEDS OR CONCERNS VOICED.
--- NOTE | 2019-01-04 07:56 | NUR ---
patient is in chair and RT is in the room doing a breathing treatment, patient is also wating for her next dose of pain medication
--- NOTE | 2019-01-04 08:31 | NUR ---
PT SITTING UP IN CHAIR EATING BREAKFAST. CALL LIGHT AND H2O IN REACH. PT ASSESSMENT COMPLETED. PT DENIES PAIN AT THIS TIME STATES "NO I DON'T HAVE ANY PAIN RIGHT NOW I FEEL GOOD". SCHEDULED AM MEDS ADMINISTERED. NO FURTHER NEEDS OR CONCERNS VOICED.
--- NOTE | 2019-01-04 08:42 | NUR ---
BROUGHT PATIENT WARM BLANKETS, PATIENT SAYS SHE IS FEELING NOT HERSELF!
--- NOTE | 2019-01-04 09:33 | NUR ---
PATIENT IN BED
--- NOTE | 2019-01-04 10:38 | NUR ---
PT SITTING UP IN BED ALERT AND ORIENTED PT ASSISTED UP TO RESTROOM AND BACK TO BED. CALL LIGHT AND H2O IN REACH.
--- NOTE | 2019-01-04 13:46 | NUR ---
PT REPORTS PAIN OF 5/10 SO PRN PO OXYCODONE WAS ADMINISTERED. CALL LIGHT AND H2O IN REACH. ASSESSMENT COMPLETED. NO FURTHER NEEDS OR CONCERNS VOICED.
--- NOTE | 2019-01-04 14:16 | NUR ---
PT REPORTS INCREASED PT REPORTS PAIN OF 7/10 TO LEFT HIP SCHEDULED ANALGESICS ADMINISTERED. CALL LIGHT AND H2O IN REACH. NO FURTHER NEEDS OR CONCERNS VOICED.
--- NOTE | 2019-01-04 16:38 | NUR ---
PT REQUESTED AND RECEIVED PRN PO LEWIS LUDWIGZENGE. H2O AND CALL LIGHT IN REACH. NO FURTHER NEEDS OR CONCERNS VOICED.
--- NOTE | 2019-01-04 18:29 | NUR ---
PT SITTING UP AT SIDE OF BED EATING DINNER. PT REPORTS 7/10 LEFT HIP PAIN. PRN PO OXYCODONE ADMINISTERED PER PT REQUEST. CALL LIGHT AND H2O IN REACH. NO FURTHER NEEDS OR CONCERNS VOICED.
--- NOTE | 2019-01-04 19:40 | NUR ---
REPORT RECEIVED FROM DAY SHIFT RN. PT LYING IN BED WATCHING TV, ALERT AND ORIENTED. PT DENIES NEEDS AT THIS TIME. CALL LIGHT IN REACH.
--- NOTE | 2019-01-04 20:50 | NUR ---
ASSESSMENT COMPLETE. EVENING MEDS GIVEN WITHOUT DIFFICULTY. PT DENIES THE NEED FOR PRN PAIN MED. O2 2L/NC IN PLACE. LEFT HIP INCISION WITH JASMEET WELL APPROXIMATED, OPEN TO AIR. PRN NICOTINE LOZENGE GIVEN PER PT REQUEST. NO FURTHER NEEDS AT THIS TIME. CALL LIGHT IN REACH.
--- NOTE | 2019-01-05 00:09 | NUR ---
PT REORTING 5/10 PAIN IN LEFT LEG, PRN OXYDONE ADMINSITERED. PT IN BED, 2LNC IN PLACE, CPOX ON. O2 SAT 92%, HR 86. PT USING IS AT THIS TIME. CALL LIGHT IN REACH, BED ALARM ON.
--- NOTE | 2019-01-05 00:32 | NUR ---
HELPED PT TO THE BATHROOM AND BACK TO BED WITH HER FWW. PT ASKING FOR PAIN MEDS. I INFORMED HER RN JOSEPH. BEDSIDE TABLE AND CALL LIGHT IN REACH.
--- NOTE | 2019-01-05 01:00 | NUR ---
nicotine lozenge provided per pt request, no further needs. call light in reach.
--- NOTE | 2019-01-05 01:45 | NUR ---
CPOX ALARMING. O2 SATS 85%. PT MOSTLY BREATHING BY MOUTH WHILE SLEEPING. OXY MASK PLACED, O2 SATS UP TO 91%. RR EVEN AND UNLABORED. CALL LIGHT IN REACH.
--- NOTE | 2019-01-05 03:50 | NUR ---
PT AWAKE, LYING IN BED. MEDICATED WITH PRN FOR 4/10 LEFT HIP PAIN. PT DENIES OTHER ENEDS AT THIS TIME. CALL LIGHT IN REACH.
--- NOTE | 2019-01-05 05:19 | NUR ---
O2 SAT MID 80'S ON 2LNC, PT SWITCHED TO 2L OXYMASK, O2 MAINTAINING AT 90%. NO FURTHER NEEDS, CALL LIGHT IN REACH.
--- NOTE | 2019-01-05 05:29 | NUR ---
PT SLEPT WELL, ALERT AND ORIENTED. USES CALL LIGHT APPROPRIATELY. O2 2L/NC, WHILE SLEEPING OXY MASK PLACED D/T MOUTH BREATHING. 1PA WITH FWW. PAIN CONTROLLED WITH PRN TYLENOL AND OXYCODONE. INCISION WELL APPROXIMATED WITH JASMEET, REDNESS NOTED AROUND INCISION. PT AFEBRILE. SCD'S.
--- NOTE | 2019-01-05 06:30 | NUR ---
PT IN BED RESTING. PRN VISTARIL GIVEN PER PT REQUEST. SCD'S IN PLACE. CPOX READS 91% ON 2L/NC. NO OTHER REQUESTS AT THIS TIME. CALL LIGHT IN REACH.
--- NOTE | 2019-01-05 07:19 | NUR ---
PT RESTING IN SEMIFOWLERS POSITION IN BED. PT ALERT AND ORIENTED CALL LIGHT AND H2O IN REACH. NO NEEDS OR CONCERNS VOICED. REPORT RECEIVED FROM POOL DAWSON.
--- NOTE | 2019-01-05 08:00 | NUR ---
PT SITTING UP IN CHAIR EATING BREAKFAST. AM ASSESSMENT COMPLETED AND PT REPORTS 7/10 PAIN TO LEFT HIP WITH MOVEMENT. PRN PO OXY ADMINISTERED ALONG WITH SCHEDULED AM MEDICATIONS. CALL LIGHT AND H2O IN REACH. NO FURTHER NEEDS OR CONCERNS VOICED.
--- NOTE | 2019-01-05 10:25 | NUR ---
PT SITTING UP IN CHAIR, ALERT AND ORIENTED. PT TALKING ON PHONE AND APPEARST O BE IN NO ACUTE DISTRESS. PT DENIES NEEDS AT THIS TIME. CALL LIGHT AND H2O IN REACH.
--- NOTE | 2019-01-05 10:46 | NUR ---
PATIENT CALLED FOR ASSISTANCE AFTER VOIDING. PATIENT STATES "I COULDNT GET ANYONE'S ATTENTION SO I JUST TOOK MYSELF TO THE BATHROOM". PATIENT SITTING UP IN BEDSIDE RECLINER. CHAIR ALARM TURNED ON, CALL LIGHT IN REACH, NO OTHER NEEDS AT THIS TIME.
--- NOTE | 2019-01-05 11:39 | NUR ---
PT SITTING IN CHAIR-O2NC IN USE. SHE IS ALERT, ORIENTED AND READY TO GO FOR A WALK. PT MENTIONED THAT SHE IS TO BE DC'D TUES, AND IS CONCERNED ABOUT SOME TRIP HAZARDS IN HER HOME. PT REQUESTED I CONTACT HER ADVERTISING TEACHER AND SEE IF PEOPLE FROM [facility] MIGHT BE ABLE TO HELP, WHICH I DID. GAVE ENCOURAGEMENT, PLEASANT VISIT. WILL FOLLOW NEEDED
--- NOTE | 2019-01-05 11:56 | NUR ---
PT REPORTS 5/10 PAIN TO LEFT HIP WITH MOVEMENT, PT ALSO REPORTS ANXIETY/AGITATION. PT REQUESTED PRN PO OXYCODONE AND PRN PO VISTARIL. CALL LIGHT AND H2O IN REACH. NO FURTHER NEEDS OR CONCERNS VOICED.
--- NOTE | 2019-01-05 13:02 | NUR ---
In and spoke with Litzy. She is planning on dc tomorrow. I did not get a return call from [employer] about [facility] or from [employer] for evaluation related to calls on Saturday. Referral sent to DANIEL López to follow up. Pt. did recieve her nebulaizer from [facility].
--- NOTE | 2019-01-05 13:58 | NUR ---
PT CALL LIGHT ON. PT REQUESTS GULSHAN SANDOVAL. PROVIDED REQUESTED (SEE MAR). PT REPORTS 4/10 PAIN AND STATES SHE IS READY TO WALK WITH PHYSICAL THERAPY. O2 AT 93% ON 2L O2 BY NC. HR = 91. NO ADDITIONAL REQUESTS OR COMPLAINTS AT THIS TIME. CALL LIGHT WITHIN REACH. PHYSICAL THERAPY TO BEDSIDE.
--- NOTE | 2019-01-05 16:06 | NUR ---
PT RESTING SUPINE IN BED ALERT AND ORIENTED. PT UP TO RESTROOM WITH SBA PER HER REQEUST. PT BACK TO BED WITH SBA FROM PATRICK HERRERA. PT RPEORTS INCREASED PAIN TO LEFT HIP SO PRN PO ANALGESIC ADMINISTERED PER PT REQUEST. CALL LIGHT AND H2O IN REACH.
--- NOTE | 2019-01-05 19:47 | NUR ---
REPORT RECEIVED FROM DAY SHIFT RN. PT LYING IN BED, ALERT AND ORIENTED. SCD'S ON. REQUESTING PRN FOR PAIN AND NICOTINE. NO OTHER REQUESTS OR CONCERNS AT THIS TIME. CALL LIGHT IN REACH.
--- NOTE | 2019-01-05 20:30 | NUR ---
ASSESSMENT COMPLETE. PM MEDS GIVEN WITHOUT DIFFICULTY. PT ALERT AND ORIENTED. O2 2LNC IN PLACE, SATS 93%. LEFT HIP INCISION OPEN TO AIR. JASMEET INTACT, WELL APPROXIMATED, NO DRAINAGE NOTED. SOME REDNESS NOTED AROUND INCISION, ICE PACK GIVEN. SCD'S ON. PRN GIVEN FOR LEFT HIP PAIN. NO FURTHER NEEDS AT THIS TIME. CALL LIGHT IN REACH.
--- NOTE | 2019-01-05 21:39 | NUR ---
CALL LIGHT ANSWERED. NICOTINE LOSANGE PROVIDED REQUESTED. CALL LIGHT AND PERSONAL SUPPLIES IN REACH. 2L OXYGEN BY MD IN PLACE. SPO2 WNL.
--- NOTE | 2019-01-05 23:50 | NUR ---
PT UP TO BR WITH FWW AND SBA. BACK TO BED, SOL WELL. CALL LIGHT IN REACH.
--- NOTE | 2019-01-06 02:30 | NUR ---
CALL LIGHT ANSWERED. PT REQUESTING PRN FOR 3/10 LEFT HIP PAIN. MEDICATED PER ORDER. CPOX IN PLACE, SPO2 92% ON 2L/NC. PT DENIES OTHER NEEDS AT THIS TIME. CALL LIGHT IN REACH.
--- NOTE | 2019-01-06 05:05 | NUR ---
PT SLEPT WELL. ALERT AND ORIENTED, USES CALL LIGHT APPROPRIARTELY. CPOX. 2L/NC. SBA WITH FWW. SCD'S. LEFT HIP INCISION WELL APPROXIMATED WITH JASMEET, REDNESS NOTED. ICE PRN. PRN OXY FOR PAIN. VOIDING QS. EXPECTED DC THIS AM.
--- NOTE | 2019-01-06 06:21 | NUR ---
patient used call light to ask for assistance into the restroom. she stated she was at a 4/10 pain, and was wondering when her last pain med was given.
--- NOTE | 2019-01-06 07:29 | NUR ---
REPORT RECIEVED FROM BABBITT SPINNER RN/ PT AWAKE IN BED. REPORTS PAIN 04/27. CALL LIGHT IN REACH. DENEIS NEEDS.
--- NOTE | 2019-01-06 10:34 | NUR ---
NOTIFIED OF RED INCISION AND SWELLING, DR.BELL EDDY HE WOULD COME DOWN TO SEE PT.
--- NOTE | 2019-01-06 10:45 | NUR ---
DR OSPINA TO BEDSIDE TO ASSESS LEFT HIP SURGIAL SITE. ORDERS TO REMOVE ALL JASMEET IF ABLE AFTER REMOVING EVERY OTHER. DR OSPINA IS HAPPY WITH PROGRESS OF SITE AND HAS NO CONCERNS FOR INFECTION. PT SITTING IN CHAIR. DENIES NEEDS. CALL LIGHT I NREACH.
--- NOTE | 2019-01-06 11:00 | NUR ---
In and spoke with Litzy. She states she is now planning on staying at [facility] for a few days. Informed I will notify and M of her new address. Dr. Gaspar in to check incision site and states it looks fine. Request RN to remove girma prior to dc.
[2019-01-06] MEDS ORDERED: NICOTINE PATCH1 EAC1 TD (11:28)
[2019-01-06] MEDS ORDERED: NICORETTE4 M2 BUCCAL (11:29)
[2019-01-06] MEDS ORDERED: XARELTO10 MG PO (11:31)
[2019-01-06] MEDS ORDERED: OXYCODONE HCL5 MG PO (11:32)
[2019-01-06] MEDS ORDERED: TYLENOL EXTRA500 MG PO ×2 (11:33→13:36)
[2019-01-06] MEDS ORDERED: VITAMIN D-40010 MCG PO (11:34)
[2019-01-06] MEDS ORDERED: LIDOCAINE1 EACH TD (11:42)
--- NOTE | 2019-01-06 12:36 | NUR ---
PT IS HEADED HOME TODAY AND IS EXCITED-SHE NOT ONLY IS GOING HOME, BUT IS ALSO 14 DAYS SMOKE FREE AND PLANS TO STAY THAT WAY! PT STATED SHE HAS COME THIS FAR AND IS NOT GOING BACK. GAVE ENCOURAGEMENT AND BLESSING. WILL FOLLOW NEEDED.
--- NOTE | 2019-01-06 13:00 | NUR ---
Noted friends in room, asked if they are here to brain picker Litzy. They state no, but Litzy states Deanne and spoke with her last night and agreed she could stay for a couple of days. Deanne denies memory of this, but states it is ok for Litzy to stay. Deanne and friend ask if I can speak with them outside. They would like assistance helping Litzy understand she may stay for 2 days only and Deanne is not her home care assistant. Returned to room and discussed with Litzy the offer is only for 2 days and she is to care for herself as Deanne walks with a cane and cannot be a home care assistant. Discussed she has been a transitional care pt. and has had intensive PT and should not require assistance to care for self. Pt agrees to this. Friends states they will return at 3 to pick Litzy up.
--- NOTE | 2019-01-06 14:00 | NUR ---
JASMEET REPMOVED PER MD ORDER. STERISTRIPS PLACED. PT TOLERATED WELL.
--- NOTE | 2019-01-06 15:00 | NUR ---
Friends return, pt is not ready for dc as girma have not been removed. Deanne states she is unable to wait as they have appts. Litzy calls a friend Veronica and she will pick Litzy up at 5 pm. Again spoke with Litzy and 02 will be delivered to friend Gavin lee at [facility], [place]. Home Health orders have been sent with her phone number and this address. Note placed stating pt will return home to her address on face sheet in two days. Pt has walker in her room which she states is hers from when she had knee surgery and will use at home. She states [facility] called her today and will begin delivering meals when she goes home. CHW will follow up with [employer] for assessment for care in the home. Pt has new nebulizer from [facility] which they delivered this week. Pt. needs sock assister, grabber, and shower seat which she will need to pay for. She declines to do this at this time. Inforation given to [facility] rentals. She will call. Reminded of [facility] medical transports and she shows me the number she has stored into her phone.
--- NOTE | 2019-01-06 15:45 | NUR ---
Notified by Rn's pt does not have a walker. In and spoke with Litzy she states she has a walker at home. Veronica states she will take Litzy to her house to spanish moss picker her walker. I again asked Litzy if she actually has a walker at her home and she states she doesn't know. Walker sent with pt and Dr. Stevens wrote a new RX for walker. I will send in tomorrow as it is now 1655 and [facility] will not deliver at this time. I will call Litzy tomorrow to find if she has a walker of her own. Pt. discharged with Veronica to go to home for clothes and then to [facility] for two nights. Called and updated Monique Kearney pt is going to [facility].
--- NOTE | 2019-01-06 17:15 | NUR ---
Received call from Veronica. There is not a walker at pt's house. Pt refused to take the loaner on dc. Requested they return and I will have aid take the walker to the front of the hospital. I will send rx to [facility] in the AM and ask them to forklift picker our walker when they deliver her new walker. Veronica agrees to return for loaner walker loraine.
--- NOTE | 2019-01-06 17:15 | NUR ---
DISCHARGE INSTRUCTION PROVIDED. O2 PROVIDED FOR DRIVE HOME. PT CALLED FROM HOME STATING SHE DOES NOT HAVE A WALKER. TRANSFERED CALL TO LOCATED WITHIN [facility].
--- NOTE | 2019-01-07 07:35 | NUR ---
Faxed prescription to [facility] for walker and requested delivery today. Pt was confused and thought she had a walker at home. When friend took her to pick it up last night, she did not have a walker in the home.
[2019-02-06] MEDS ORDERED: LASIX20 MG PO (19:51)
[2019-02-06] MEDS ORDERED: OXYCODONE HCL10 MG PO (19:51)
== END 2019-01-06 16:45 | disposition home health service (06) | DRG 560 ==
LOC: MS 07:00
PROVIDERS: ADMIT Internal Medicine
DX: S72.032D Displaced midcervical fracture of left femur, subsequent encounter for closed fracture with routine healing (principal); J96.11 Chronic respiratory failure with hypoxia; J90 Pleural effusion, not elsewhere classified; R26.81 Unsteadiness on feet; I10 Essential (primary) hypertension; K21.9 Gastro-esophageal reflux disease without esophagitis; F17.200 Nicotine dependence, unspecified, uncomplicated; J44.9 Chronic obstructive pulmonary disease, unspecified; G89.4 Chronic pain syndrome; F32.9 Major depressive disorder, single episode, unspecified; R91.8 Other nonspecific abnormal finding of lung field; W18.30XD Fall on same level, unspecified, subsequent encounter; Y92.009 Unspecified place in unspecified non-institutional (private) residence as the place of occurrence of the external cause; Z88.8 Allergy status to other drugs, medicaments and biological substances; Z98.890 Other specified postprocedural states; Z79.899 Other long term (current) drug therapy
CPT/HCPCS: 94640; 94761; 94762; 97110; 97116; 97162; 97165; 97535; Q0177

== ENCOUNTER 2019-01-07 09:53 | Emergency (ER) | payer MEDICARE, OTHER ==
[~2019-01-07] VITALS: Ht 165.1 cm; Wt 58.1 kg
--- OUTSIDE RECORDS SUMMARY | ~2019-01-07 | XMS | Encounter Summary ---
Demographics + + + | Address | [address] | | | [place] [address] | + + + | Home Phone | | + + + | Preferred Language | Unknown | + + + | Marital Status | Single | + + + | Islam Affiliation | Unknown | + + + | Race | Unknown | + + + | Ethnic Group | Unknown | + + + Author + + + | Author | [facility] | | | and [place] | + + + | Organization | [facility] | | | and [place] | [...] Team Providers + +------+ + | Care Cylinder Handler Name | Role | Phone | + +------+ + | Timothy Elmore | PCP | | + +------+ + Encounter Details +--------+ + + + + | Date | Type | Department | Care Team | Description | +--------+ + + + + | 11/28/ | Transcribed | PULMONARY FUNCTION | Timothy Elmore PA | Chronic obstructive | | 2016 | Orders | [id number] | [address] | pulmonary disease, | | | | [place] | [place] | unspecified COPD | | | | [phone] | [id number] | type (HCC) (Primary | | | | [phone] | [phone] | Dx) | +--------+ + + + + Social History + +-------+ +--------+------+ | Tobacco Use | Types | Packs/Day | Years | Date | | | | | Used | | + +-------+ +--------+------+ | Current Every Day | | 1 | | | | Smoker | | [...] + + documented as of this encounter Functional Status + + + + | Functional Status | Response | Date of Assessment | + + + + | Are you deaf or do you have serious | No | 07/23/2015 | | difficulty hearing? | | | + + + + | Are you blind or do you have serious | No | 07/23/2015 | | difficulty seeing, even when wearing | | | | glasses? | | | + + + + | Do you have serious difficulty walking or | No | 07/23/2015 | | climbing stairs? (5 years old or older) | | | + + + + | Do you have difficulty dressing or bathing? | No | 07/23/2015 | | (5 years old or older) | | | + + + + | Because of a physical, mental, or emotional | No | 07/23/2015 | | condition, do you have difficulty doing | | | | errands alone such as visiting a doctor's | | | | office or shopping? [15 years old or | | | | older)] | | | + + + + + + + + | Cognitive Status | Response | Date of Assessment | + + + + | Because of a physical, mental, or emotional | No | 07/23/2015 | | condition, do you have serious difficulty | | | | concentrating, remembering, or making | | | | decisions? (5 years old or older) | | | + + + + documented as of this encounter Plan of Treatment Not on filedocumented as of this encounter Visit Diagnoses + + | Diagnosis | + + | Chronic obstructive pulmonary disease, unspecified COPD type (HCC) - Primary | + + documented in this encounter"
--- OUTSIDE RECORDS SUMMARY | ~2019-01-07 | XMS | Encounter Summary ---
Demographics + + + | Address | [address] | | | [place] [address] | + + + | Home Phone | | + + + | Preferred Language | Unknown | + + + | Marital Status | Single | + + + | Congregational Affiliation | Unknown | + + + | Race | Unknown | + + + | Ethnic Group | Unknown | + + + Author + + + | Author | [facility] | | | and [place] | + + + | Organization | [facility] | | | and [place] [...] Team Providers + +------+ + | Care Lip And Gate Builder Name | Role | Phone | + +------+ + | Timothy Elmore | PCP | | + +------+ + Encounter Details +--------+ + + + + | Date | Type | Department | Care Team | Description | +--------+ + + + + | 08/04/ | [facility] | [facility] | Neo Pichardo MD | Hypertensive | | 2017 - | Encounter | [facility] | [address] | emergency; Essential | | | | [address] | [place] | hypertension | | 08/07/ | | [place] [id number] | [id number] | | | 2016 | | [phone] | | | +--------+ + + + + Social History + + + +--------+------+ | Tobacco Use | Types | Packs/Day | Years | Date | | | | | Used | | + + + +--------+------+ | Current Every Day | Cigarettes | 1 | 47 | | | Smoker | | | | | + + + +--------+------+ + +---+---+---+ | Smokeless Tobacco: | [...] + + + | Blood Pressure | 136/83 | 08/07/2016 7:11 AM | | | | | PDT | | + + + + + | Pulse | 78 | 08/07/2016 8:15 AM | | | | | PDT | | + + + + + | Temperature | 36.5 C (97.7 F) | 08/07/2016 7:11 AM | | | | | PDT | | + + + + + | Respiratory Rate | 20 | 08/07/2016 8:15 AM | | | | | PDT | | + + + + + | Oxygen Saturation | 95% | 08/07/2016 8:15 AM | | | | | PDT | | + + + + + | Inhaled Oxygen | - | - | | | Concentration | | | | + + + + + | Weight | 59.3 kg (130 lb 11.7 | 08/06/2016 7:00 PM | | | | oz) | PDT | | + + + + + | Height | 165.1 cm (5' 5") | 08/06/2016 7:00 PM | | | | | PDT | | + + + + + | Body Mass Index | 21.76 | 08/06/2016 7:00 PM | | | | | PDT | | + + + + + documented in this encounter Functional Status + + + [...] + + documented as of this encounter Discharge Summaries Neo Pichardo MD - 08/07/2016 12:14 PM PDT DISCHARGE SUMMARY Patient Name: Oneal Evans : 1955 Date of Admission: 08/04/2016 Date of Discharge: 08/07/2016 Admitting Physician: Neo Pichardo MD Discharging Physician: Neo Pichardo MD Primary Care Provider: ASHANTI Esteves Discharge Diagnoses: Active Problems: Hypertension Hypertensive emergency Caffeine dependence Nicotine dependence Resolved Problems: * No resolved hospital problems. * Patient Active Problem List Diagnosis Dental caries Depression Hypertension Pancreatic insufficiency Diarrhea Loss of appetite Weight loss Peroneal neuropathy at knee, left Breast implant rupture, initial encounter Hypertensive emergency Caffeine dependence Nicotine dependence Consultants: Procedures: Echocardiogram Reason for Admission/Hospital Course: Please refer to the H&P for full details. Hypertensive emergency: She was admitted to the ICU. She was given IV nitroglycerin with i mprovement of her blood pressures. Serial troponins were performed which did not suggest ac tejon coronary syndrome. Echocardiogram was performed which showed normal LV function. Her b lood pressure medications were increased as an outpatient. Her Procardia was increased to 1 20 mg daily. Her lisinopril was increased to 40 mg daily. Drivers for her hypertension are chronic sudafed and caffeine use. Patient had episodes of NSVT while in the ICU. She had hypokalemia and hypomagnesemia that was repleted with IV I replacements. Patient was counseled on her substance dependence of caffeine and nicotine. She was encour aged to reduce her intake of these substances. Patient was also encouraged to decrease the amount of marijuana that she ingests. Physical Exam: Vitals: 08/07/16 0815 BP: Pulse: 78 Resp: 20 Temp: Gen Deborah - alert, cooperative and no distress Head - Normocephalic, without obvious abnormality, atraumatic Eyes - PERRL, conjunctiva/corneas clear, EOM's intact both eyes ENT - mucous membranes moist Neck - supple Lungs - CTA bilat Heart - normal rate, rhythm w/o m/r/g Abdomen - scaphoid Normoactive bowel sounds, non-tender non-distended Extremities - no peripheral edema, no clubbing or cyanosis Code Status: Full Code Disposition: Home Discharge Condition: improved Follow-up Information Sergo Hernández MD In 1 week. Specialty: Family Medicine Contact information: [address] [place] [id number] Discharge Medications New Medications Details acetaminophen 325 mg tablet Take 2 tablets by mouth every 6 hours as needed for Pain. aka: TYLENOL loratadine 10 mg tablet Take 1 tablet by mouth Daily for 30 days. aka: CLARITIN Changed Medications Details lisinopril 40 MG tablet Take 1 tablet by mouth Daily for 30 days. What changed: medication strength how much to take aka: PRINIVIL,ZESTRIL NIFEdipine 60 MG 24 hr tablet Take 2 tablets by mouth Daily for 30 days. What changed: medication strength how much to take aka: ADALAT CC Unchanged Medications Details acyclovir 800 mg tablet Take 400 mg by mouth 2 times daily. aka: ZOVIRAX FLOVENT HFA 220 mcg/puff inhaler Generic drug: fluticasone Inhale 1 puff into the lungs 2 times daily. FLUoxetine 40 MG capsule Take 40 mg by mouth 2 times daily. aka: PROZAC fluticasone 50 mcg/nasal spray 1 spray by Nasal route Daily. aka: FLONASE gabapentin 600 MG tablet Take 1,200 mg by mouth 3 times daily. aka: NEURONTIN hydrOXYzine pamoate 25 mg capsule Take 25 mg by mouth 4 times daily. aka: VISTARIL loperamide 2 mg capsule Take 4 mg by mouth 4 times daily as needed for Diarrhea. aka: IMODIUM omeprazole 20 mg capsule Take 20 mg by mouth every morning (before breakfast). aka: priLOSEC Discontinued Medications HYDROcodone-acetaminophen 10-325 mg per tablet aka: NORCO pseudoePHEDrine 120 mg 12 hr tablet aka: SUDAFED Studies With Pending Results: Greater than 30 minutes were spent on discharge and coordination of post-hospital care. Electronically signed by: Neo Pichardo MD, 08/07/2016 12:33 [facility] documented in this enc ounter Discharge Instructions Instructions Neo Pichardo MD - 08/07/2016Pt to reduce her caffeine intake Pt to follow up with her psychotherapist for treatment of anxiety Patient also to reduce her intake of marijuana documented in this encounter Medications at Time of Discharge + + + +---------+ + + | Medication | Sig | Dispensed | Refills | Start | End Date | | | | | | Date | | + + + +---------+ + + | acetaminophen | Take 2 tablets by | 120 | 0 | 08/08/19 | | | (TYLENOL) 325 mg | mouth every 6 hours | tablet | | 17 | | | tablet | as needed for Pain. | | | | | + + + +---------+ + + | acyclovir | Take 400 mg by mouth | | 0 | 07/21/19 | | | (ZOVIRAX) 800 mg | 2 times daily. | | | 17 | | | tablet | | | | | | + + + +---------+ + + | FLOVENT HFA 220 | Inhale 1 puff into | | 0 | 06/23/19 | | | MCG/ACT inhaler | the lungs 2 times | | | 17 | | | | daily. | | | | | + + + +---------+ + + | FLUoxetine | Take 40 mg by mouth | | 0 | 06/21/19 | | | (PROZAC) 40 MG | 2 times daily. | | | 17 | | | capsule | | | | | | + + + +---------+ + + | fluticasone | 1 spray by Nasal | | 0 | 07/16/19 | | | (FLONASE) 50 | route Daily. | | | 17 | | | mcg/nasal spray | | | | | | + + + +---------+ + + | gabapentin | Take 1,200 mg by | | 0 | 07/24/19 | | | (NEURONTIN) 600 MG | mouth 3 times daily. | | | 17 | | | tablet | | | | | | + + + +---------+ + + | hydrOXYzine | Take 25 mg by mouth | | 0 | 07/13/19 | | | pamoate (VISTARIL) | 4 times daily. | | | 17 | | | 25 mg capsule | | | | | | + + + +---------+ + + | loperamide | Take 4 mg by mouth 4 | | 0 | 07/11/19 | | | (IMODIUM) 2 mg | times daily as | | | 17 | | | capsule | needed for Diarrhea. | | | | | + + + +---------+ + + | omeprazole | Take 20 mg by mouth | | 0 | 07/04/19 | | | (PRILOSEC) 20 mg | every morning | | | 17 | | | capsule | (before breakfast). | | | | | + + + +---------+ + + | lisinopril | Take 1 tablet by | 30 | 0 | 08/08/19 | | | (PRINIVIL,ZESTRIL) | mouth Daily for 30 | tablet | | 17 | 7 | | 40 MG tablet | days. | | | | | + + + +---------+ + + | loratadine | Take 1 tablet by | 30 | 0 | 08/08/19 | | | (CLARITIN) 10 mg | mouth Daily for 30 | tablet | | 17 | 7 | | tablet | days. | | | | | + + + +---------+ + + | NIFEdipine (ADALAT | Take 2 tablets by | 30 | 0 | 08/08/19 | | | CC) 60 MG 24 hr | mouth Daily for 30 | tablet | | 17 | 7 | | tablet | days. | | | | | + + + +---------+ + + documented as of this encounter Progress Notes Melina Renteria RN - 08/06/2016 6:55 PM PDTPt transferred to room 448 from ICU. Oriented to room call boyce within reach. Electronically signed by: Melina Renteria RN 08/06/2016 18:56 Lea Mendoza MD - 08/06/2016 8:[address] [facility] HOSPITALIST PROGRESS NOTE Patient: Oneal Evans : 1955: Age: 60 y.o. MedRec: [id number] PCP: ASHANTI Esteves Admission date: 08/04/2016 Hospital day # : 2 Physician author: Neo Pichardo MD Today: 08/06/2016 SUBJECTIVE: She notes headache. Patient states that she eats up to 4 marijuana brownies per day. Marcia ent also reports that she drinks about 4-54 bottles per day. She states that she feels nerv ous. Again patient confirmed that she takes large amounts of pseudoephedrine for chronic si nusitis. VITALS: Temp: 36.2 C (97.2 F), Pulse: 84, Resp: 16, BP: 161/71, SpO2 95 % on room air at flow r ate 2L/min Temp Min: 36.2 C (97.2 F) Max: 37.3 C (99.1 F) Weight: 60.7 kg (133 lb 13.1 oz) I/O last 3 completed shifts: In: 2348 [P.O.:300; I.V.:1669; IV Piggyback:379] Out: 4900 [Urine:4900] I/O this shift: In: 244 [I.V.:244] Out: 150 [Urine:150] PHYSICAL EXAM: Gen Deborah - alert, cooperative and no distress Head - Normocephalic, without obvious abnormality, atraumatic Eyes - PERRL, conjunctiva/corneas clear, EOM's intact both eyes ENT - mucous membranes moist Neck - supple Lungs - CTA bilat Heart - normal rate, rhythm w/o m/r/g Abdomen - scaphoid Normoactive bowel sounds, non-tender non-distended Extremities - no peripheral edema, no clubbing or cyanosis Skin -dry skin Neurologic - Alert and oriented x 3. CN II-XII intact. DIAGNOSTIC STUDIES: Available data and images were reviewed personally. Significant results and findings are a ddressed here or in the Assessment and Plan. Recent Results (from the past 24 hour(s)) ECHO Complete Result Value Ref Range LVEF-[id number] TRANSTHORACIC ECHO 65 Drugs of Abuse, Screen, Urine Result Value Ref Range Amphetamine Screen, Urine Negative Negative Barbiturates Screen, Urine Negative Negative Benzodiazepines, Urine, Screen Negative Negative Cannabinoids Screen, Urine Positive (A) Negative Cocaine Screen, Urine Negative Negative Methadone Screen, Urine Negative Negative Opiates Screen, Urine Positive (A) Negative Basic Metabolic Panel Result Value Ref Range NA 140 136 - 149 mmol/L K 3.2 (L) 3.5 - 5.1 mmol/L CL 101 98 - 109 mmol/L CO2 30 24 - 31 mmol/L ANION GAP 9 3 - 16 mmol/L GLUCOSE 129 (H) 70 - 109 mg/dL BUN 7 7 - 18 mg/dL Creatinine, Serum/Plasma 0.58 (L) 0.60 - 1.30 mg/dL eGFR if not >60 >=60 mL/min/1.73m2 CALCIUM 9.3 8.3 - 10.5 mg/dL BUN/CREA 12.1 Magnesium Result Value Ref Range MG 1.5 (L) 1.8 - 2.5 mg/dL Basic Metabolic Panel Result Value Ref Range NA 134 (L) 136 - 149 mmol/L K 3.1 (L) 3.5 - 5.1 mmol/L CL 95 (L) 98 - 109 mmol/L CO2 29 24 - 31 mmol/L ANION GAP 10 3 - 16 mmol/L GLUCOSE 112 (H) 70 - 109 mg/dL BUN 5 (L) 7 - 18 mg/dL Creatinine, Serum/Plasma 0.46 (L) 0.60 - 1.30 mg/dL eGFR if not >60 >=60 mL/min/1.73m2 CALCIUM 8.9 8.3 - 10.5 mg/dL BUN/CREA 10.9 CBC no Differential Result Value Ref Range WBC 11.1 (H) 4.0 - 11.0 K/uL RBC 3.93 3.70 - 5.20 M/uL Hgb 13.2 11.5 - 16.0 g/dL Hct 38.8 34.0 - 47.0 % MCV 99.0 83.0 - 101.0 fL MCH 33.5 28.0 - 35.0 pg MCHC 33.9 32.0 - 36.0 g/dL RDW-CV 13.0 <15.0 % Platelet Count 333 140 - 440 K/uL MPV 7.5 fL PTT Result Value Ref Range PTT 32 22 - 36 seconds Magnesium Result Value Ref Range MG 1.9 1.8 - 2.5 mg/dL Ct Abdomen Pelvis W Contrast Result Date: 08/05/2016 TECHNIQUE: After administration of 85 mL Omnipaque 350 intravenously, axial CT imaging was obtained through the abdomen and pelvis with coronal and sagittal reformats. CLINICAL INFORM ATION: emesis, h/o pancreatic insufficiency COMPARISON: None available. FINDINGS: LUNGS: Mil d intralobular septal thickening with tiny peripheral lung base groundglass nodularity noted suggesting pulmonary edema. No pleural effusion. BONES: No acute osseous abnormality. No os teoblastic or osteolytic lesion. ABDOMEN/PELVIS: Abdominal wall: Normal. Liver: Inferior per ipheral right hepatic lobe cyst. Mild hepatomegaly. No hepatic soft tissue mass. Gallbladder : Cholecystectomy clips at the gallbladder fossa. Prominent appearance of the common bile du ct measuring up to 9 mm, likely postsurgical change. Pancreas: Slight prominence of the panc reatic duct measuring up to 4 mm without pancreatic mass lesion or pancreatic atrophy. Splee n: Normal. Adrenals: Normal. Kidneys: Right and left midpole subcentimeter hypodensities, to o small to fully characterize. Ureters: Normal Urinary Bladder: Normal. Reproductive organs: No adnexal mass. Bowel: Multiple scattered colonic diverticula without pericolonic inflamma tion the appendix is not visualized. No inflammatory changes at the right lower quadrant. No evidence to suggest bowel obstruction. Peritoneum: No ascites or free air. No lymphadenopat hy. Retroperitoneum: Normal. Vessels: Normal caliber of the abdominal aorta. IMPRESSION - No acute abdominal or pelvic abnormality. Probable mild pulmonary edema. Dictated and Signed by: Hang Evans MD Electronically signed: 08/05/2016 1:46 PM Current Facility-Administered Medications: acetaminophen 650 mg Oral Q6H PRN albuterol-ipratropium 3 mL Nebulization 4x Daily budesonide 0.5 mg Nebulization BID escitalopram 20 mg Oral Daily heparin 5,000 Units Subcutaneous 2 times per day HYDROmorphone 0.25-0.5 mg Intravenous Q3H PRN lisinopril 40 mg Oral Daily loratadine 10 mg Oral Daily LORazepam 1 mg Intravenous Q4H PRN metoclopramide 5 mg Intravenous Q6H PRN morphine 4 mg Intravenous Q3H PRN nicotine 1 patch Transdermal Daily nicotine polacrilex 2 mg Oral PRN NIFEdipine 120 mg Oral Daily nitroglycerin 0.4 mg Sublingual Q5 Min PRN nitroglycerin in dextrose 5-250 mcg/min Intravenous Titrated ondansetron 4 mg Intravenous Q6H PRN pantoprazole 40 mg Intravenous Daily potassium chloride 40-60 mEq Oral PRN And potassium chloride 40-60 mEq Feeding Tube PRN And Potassium chloride 10 mEq Intravenous PRN promethazine (PHENERGAN) IVPB 12.5 mg Intravenous Q6H PRN promethazine CURRENT MEDICATIONS: Current Facility-Administered Medications Medication Dose Route Frequency Provider Last Rate Last Dose acetaminophen (TYLENOL) tablet 650 mg 650 mg Oral Q6H PRN Neo Pichardo MD 650 mg a t 08/05/16 1326 albuterol-ipratropium (DUONEB) 2.5-0.5 mg/3 mL nebulizer solution 3 mL 3 mL Nebulizati on 4x Daily Neo Pichardo MD 3 mL at 08/06/16 0727 budesonide (PULMICORT) 0.5 mg/2 mL nebulizer solution 0.5 mg 0.5 mg Nebulization BID S amber Pichardo MD 0.5 mg at 08/06/16 0727 escitalopram (LEXAPRO) tablet 20 mg 20 mg Oral Daily Neo Pichardo MD 20 mg at 07/19 11/04 0809 heparin 5,000 units/mL injection 5,000 Units 5,000 Units Subcutaneous 2 times per day Neo Pichardo MD 5,000 Units at 08/06/16 0808 HYDROmorphone (DILAUDID) injection 0.25-0.5 mg 0.25-0.5 mg Intravenous Q3H PRN Alli Yung DO 0.5 mg at 08/06/16 0825 lisinopril (PRINIVIL,ZESTRIL) tablet 40 mg 40 mg Oral Daily Neo Pichardo MD 40 mg at 08/06/16 0734 loratadine (CLARITIN) tablet 10 mg 10 mg Oral Daily Neo Pichardo MD 10 mg at 08/06 0809 LORazepam (ATIVAN) injection 1 mg 1 mg Intravenous Q4H PRN Neo Pichardo MD 1 mg at 08/06/16 0826 metoclopramide (REGLAN) 5 mg/mL injection 5 mg 5 mg Intravenous Q6H PRN Alli adler DO 5 mg at 08/05/16 1023 morphine injection 4 mg 4 mg Intravenous Q3H PRN Neo Pichardo MD 4 mg at 08/06/16 0546 nicotine (NICODERM) 21 mg/24 hr 1 patch 1 patch Transdermal Daily Alli Yung DO 1 patch at 08/06/16 0809 nicotine polacrilex (COMMIT) lozenge 2 mg 2 mg Oral PRN Alli Yung DO NIFEdipine (PROCARDIA XL) ER tablet 120 mg 120 mg Oral Daily Neo Pichardo MD 120 m g at 08/06/16 0734 nitroglycerin (NITROSTAT) SL tablet 0.4 mg 0.4 mg Sublingual Q5 Min PRN Neo Pichardo MD nitroglycerin in dextrose 100 mcg/mL infusion 5-250 mcg/min Intravenous Titrated Lea Pichardo MD 21 mL/hr at 08/06/16 0808 35 mcg/min at 08/06/16 0808 ondansetron (ZOFRAN) injection 4 mg 4 mg Intravenous Q6H PRN Neo Pichardo MD 4 mg at 08/04/16 1822 pantoprazole (PROTONIX) injection 40 mg 40 mg Intravenous Daily Neo Pichardo MD 40 mg at 08/06/16 0808 potassium chloride (K-DUR) ER tablet 40-60 mEq 40-60 mEq Oral PRN Neo Pichardo MD 60 mEq at 08/06/16 0520 And potassium chloride 20 mEq/15 mL liquid 40-60 mEq 40-60 mEq Feeding Tube PRN Neo blackman MD And potassium chloride 10 mEq in sterile water 100 mL IVPB 10 mEq Intravenous PRN Neo so MD promethazine (PHENERGAN) 12.5 mg in sodium chloride 0.9% 50 mL IVPB 12.5 mg Intravenou s Q6H PRN Neo Pichardo MD 202 mL/hr at 08/06/16 0600 12.5 mg at 08/06/16 0600 promethazine (PHENERGAN) 25 mg/mL (IV ONLY) injection ASSESSMENT and PLAN: Active Hospital Problems Diagnosis Hypertensive emergency Pancreatic insufficiency Hypertension Resolved Hospital Problems Diagnosis Date Noted Date Resolved No resolved problems to display. Hypertensive emergency: Improving. We will increase her lisinopril to 40 mg daily, will in crease her Procardia dose to 120 mg qd. . I suspect that patient has withdrawn from caffein e and/or marijuana that is causing her to have elevated blood pressures. Chronic pseudoephe drine could also be contributing to hypertension. We will continue to maximize her antihype rtensive. We will give Ativan as needed to assist with withdrawal. Nausea/emesis: Patient is a chronic marijuana user. Her nausea and emesis may be related t o her marijuana use. We'll give Zofran as needed History of pancreatic insufficiency with nausea. Her liver function tests were normal at t he outside hospital. CT of the abdomen did not suggest any abnormalities. Allergic rhinitis- Will give claritin. Stop pseudophedrine. Depression/Anxiety- chronic . Continue lexapro. F/e/n- oral fluids. Hypokalemia- replete K. cardiac diet DVT Prophylaxis Hep SC Code Status Full code Total time of approximately 35 minutes was spent with the patient and/or patient's family, and/or on the patient's floor/unit, of which more than 50% was spent counseling and/or coord ination the patient's care as outlined above. Neo Pichardo 08/06/2016 8:35 [facility] Mirna Kearns, PharmD - 08/05/2016 4:11 PM PDT PHARMACY SERVICES: ADMISSION MEDICATION REVIEW Oneal Evans is a 60 y.o. female admitted on 08/04/16. Patient is a reliable historian. Location of Patient when reviewed: x Medical Floor Patient s prior to admit medication and over the counter (OTC) medications/herbal supplem ents list obtained from: x Verbal interview x Patient ABLE to recall name, strength, and directions x Pharmacy list names: [facility] [employer] insurance reported information Vaccines up to date? Yes No Unsure Influenza x Pneumococcal x Tdap x Shingles x Noted medications discrepancies or medication-related issues: Dosage change: Medication: Prior to Admission Sig: Correct sig: Fluticasone 50 mcg/nasal spray Use 2 sprays in each nostril every day Use 1 spray in each n ostril every day Loperamide 2 mg Take 2 mg by mouth 4 times daily as needed for diarrhea Take 4 mg by mouth 4 times daily as needed for diarrhea Medication added: Medication: Prior to Admission Sig: Acyclovir 800 mg 0.5 tablet by mouth 2 times daily Fluoxetine 40 mg 2 capsules by mouth daily Hydroxyzine pamoate 25 mg 1 capsule by mouth 4 times daily Hydrocodone-acetaminophen 10-325 mg 1 tablet by mouth every 4 hours as needed for pain Removed therapy: Medication: Prior to Admission Sig: Reason for Removal: Buspirone 30 mg No sig Therapy complete Calcium Take by mouth Therapy complete Carisoprodol 350 mg No sig Therapy complete Carisoprodol 350 mg Take 350 mg by mouth 2 times daily Therapy complete Escitalopram 10 mg Take 20 mg by mouth daily Therapy complete Estradiol 0.1 mg/g vaginal cream Place vaginally Therapy complete Estradiol 0.5 mg Take 0.5 mg by mouth. 1 every 8 days Therapy complete Furosemide 20 mg Take 20 mg by mouth daily Therapy complete Hyoscyamine sulfate Take by mouth as needed Therapy complete Lidocaine 2% solution Take 15 ml by mouth as needed for pain. No more than 60 ml in 24 hour s. 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 HOSPITALIST PROGRESS NOTE Patient: Oneal Evans : 1955: Age: 60 y.o. MedRec: [id number] PCP: ASHANTI Esteves Admission date: 08/04/2016 Hospital day # : 1 Physician author: Neo Pichardo MD Today: 08/05/2016 SUBJECTIVE: Pt notes headache. She states she drinks multiple full throttles throughout the day. Sh e denies nausea VITALS: Temp: 36.4 C (97.5 F), Pulse: 62, Resp: 17, BP: 147/65, SpO2 95 % on nasal cannula at f low rate 2L/min Temp Min: 35.7 C (96.3 F) Max: 36.4 C (97.5 F) Weight: 60.7 kg (133 lb 13.1 oz) I/O last 3 completed shifts: In: 1553.2 [P.O.:100; I.V.:1074.2; IV Piggyback:379] Out: 1100 [Urine:1100] I/O this shift: In: 340.8 [I.V.:340.8] Out: - PHYSICAL EXAM: Gen Deborah - alert, cooperative and no distress Head - Normocephalic, without obvious abnormality, atraumatic Eyes - PERRL, conjunctiva/corneas clear, EOM's intact both eyes ENT - mucous membranes moist Neck - supple Lungs - CTA bilat Heart - normal rate, rhythm w/o m/r/g Abdomen - scaphoid Normoactive bowel sounds, non-tender non-distended Extremities - no peripheral edema, no clubbing or cyanosis Skin -dry skin Neurologic - Alert and oriented x 3. CN II-XII intact. DIAGNOSTIC STUDIES: Available data and images were reviewed personally. Significant results and findings are a ddressed here or in the Assessment and Plan. Recent Results (from the past 24 hour(s)) Basic Metabolic Panel Result Value Ref Range NA 134 (L) 136 - 149 mmol/L K 2.8 (L) 3.5 - 5.1 mmol/L CL 95 (L) 98 - 109 mmol/L CO2 24 24 - 31 mmol/L ANION GAP 15 3 - 16 mmol/L GLUCOSE 151 (H) 70 - 109 mg/dL BUN 13 7 - 18 mg/dL Creatinine, Serum/Plasma 0.60 0.60 - 1.30 mg/dL eGFR if not >60 >=60 mL/min/1.73m2 CALCIUM 8.8 8.3 - 10.5 mg/dL BUN/CREA 21.7 CBC with Differential Result Value Ref Range WBC 11.3 (H) 4.0 - 11.0 K/uL RBC 4.55 3.70 - 5.20 M/uL Hgb 15.1 11.5 - 16.0 g/dL Hct 45.5 34.0 - 47.0 % MCV 99.9 83.0 - 101.0 fL MCH 33.1 28.0 - 35.0 pg MCHC 33.2 32.0 - 36.0 g/dL RDW-CV 13.0 <15.0 % Platelet Count 403 140 - 440 K/uL MPV 7.4 fL % Neutrophils 81.8 45.0 - 82.0 % % Lymphocytes 11.0 (L) 20.0 - 45.0 % % Monocytes 6.5 4.0 - 12.0 % % Eosinophils 0.2 0.0 - 5.0 % % Basophils 0.5 0.0 - 1.0 % Absolute Neutrophils 9.20 (H) 1.80 - 8.50 K/uL Absolute Lymphocytes 1.20 0.60 - 3.20 K/uL Absolute Monocytes 0.70 0.00 - 1.00 K/uL Absolute Eosinophils 0.00 0.00 - 0.40 K/uL Absolute Basophils 0.10 0.00 - 0.10 K/uL Magnesium Result Value Ref Range MG 1.7 (L) 1.8 - 2.5 mg/dL Protime INR Result Value Ref Range PROTIME 12.2 11.3 - 13.9 seconds INR 0.89 (L) 0.90 - 1.10 Troponin I Result Value Ref Range Troponin I 0.12 (H) <0.06 ng/mL PTT Result Value Ref Range PTT 119 (HH) 22 - 36 seconds Lipase Result Value Ref Range LIPASE 22 0 - 60 U/L ECG 12 lead Result Value Ref Range INTERPRETATION TEXT Not Confirmed Hepatic Function Panel Result Value Ref Range BILIRUBIN TOTAL 0.8 0.1 - 1.5 mg/dL Total protein 6.0 6.0 - 7.8 g/dL ALBUMIN 3.2 3.2 - 5.0 g/dL AST 52 (H) 10 - 42 U/L ALT 36 6 - 45 U/L ALK PHOS 157 (H) 40 - 110 U/L GLOBULIN 2.8 2.1 - 3.8 g/dL Albumin/Globulin ratio 1.1 0.8 - 2.0 Bilirubin, Direct 0.30 (H) 0.00 - 0.20 mg/dl ECG 12 lead Result Value Ref Range INTERPRETATION TEXT Not Confirmed Troponin I Result Value Ref Range Troponin I 0.22 (H) <0.06 ng/mL PTT Result Value Ref Range PTT 73 (H) 22 - 36 seconds Basic Metabolic Panel Result Value Ref Range NA 135 (L) 136 - 149 mmol/L K 3.2 (L) 3.5 - 5.1 mmol/L CL 100 98 - 109 mmol/L CO2 28 24 - 31 mmol/L ANION GAP 7 3 - 16 mmol/L GLUCOSE 106 70 - 109 mg/dL BUN 8 7 - 18 mg/dL Creatinine, Serum/Plasma 0.54 (L) 0.60 - 1.30 mg/dL eGFR if not >60 >=60 mL/min/1.73m2 CALCIUM 8.1 (L) 8.3 - 10.5 mg/dL BUN/CREA 14.8 Troponin I Result Value Ref Range Troponin I 0.22 (H) <0.06 ng/mL CBC no Differential Result Value Ref Range WBC 7.9 4.0 - 11.0 K/uL RBC 3.70 3.70 - 5.20 M/uL Hgb 12.4 11.5 - 16.0 g/dL Hct 36.8 34.0 - 47.0 % MCV 99.5 83.0 - 101.0 fL MCH 33.5 28.0 - 35.0 pg MCHC 33.7 32.0 - 36.0 g/dL RDW-CV 13.3 <15.0 % Platelet Count 310 140 - 440 K/uL MPV 7.5 fL B Type Natriuretic Peptide Result Value Ref Range BNP 767 (H) <100 pg/mL Ct Abdomen Pelvis W Contrast Result Date: 08/04/2016 DISCLAIMER: This is a preliminary report provided by [facility], [place]. A kevin brown report is available at [facility]. CT ABDOMEN AND PELVIS WITH CO NTRAST CLINICAL INFORMATION: Emesis, history of pancreatic insufficiency. COMPARISON: No c omparisons PROCEDURE: Axial images through the abdomen and pelvis after the administration of 85 ml omnipaque 350 intravenous contrast. Multiplanar reconstructions. At least one of t he following CT dose optimization techniques were used: Automated exposure control; Adjustme nt of mA and/or kV according to patient size; Use of iterative reconstruction technique. FI NDINGS: Minimal intralobular septal thickening. This likely reflects a mild degree of pulmo nary edema. No pleural effusion. Rounded low-density structure within the right hepatic lo be likely representing a small hepatic cyst. Gallbladder absent. No acute findings within the abdomen or pelvis. IMPRESSION: No acute findings within the abdomen or pelvis. Probabl e mild pulmonary edema as described above. Signed by: Jose J Bailon Report sent: 7 8:47:00 PM Current Facility-Administered Medications: acetaminophen 650 mg Oral Q6H PRN albuterol albuterol-ipratropium 3 mL Nebulization RT Q6H budesonide 0.5 mg Nebulization BID escitalopram 20 mg Oral Daily furosemide 40 mg Oral Daily HYDROmorphone 0.25-0.5 mg Intravenous Q3H PRN lisinopril 20 mg Oral Daily metoclopramide 5 mg Intravenous Q6H PRN morphine 4 mg Intravenous Q3H PRN nicotine 1 patch Transdermal Daily nicotine polacrilex 2 mg Oral PRN NIFEdipine 30 mg Oral Daily nitroglycerin 0.4 mg Sublingual Q5 Min PRN ondansetron 4 mg Intravenous Q6H PRN pantoprazole 40 mg Intravenous Daily potassium chloride 40-60 mEq Oral PRN And potassium chloride 40-60 mEq Feeding Tube PRN And Potassium chloride 10 mEq Intravenous PRN promethazine (PHENERGAN) IVPB 12.5 mg Intravenous Q6H PRN promethazine CURRENT MEDICATIONS: Current Facility-Administered Medications Medication Dose Route Frequency Provider Last Rate Last Dose acetaminophen (TYLENOL) tablet 650 mg 650 mg Oral Q6H PRN Neo Pichardo MD 650 mg a t 08/05/16 0809 albuterol 2.5 mg/3 mL nebulizer solution albuterol-ipratropium (DUONEB) 2.5-0.5 mg/3 mL nebulizer solution 3 mL 3 mL Nebulizati on RT Q6H Neo Pichardo MD 3 mL at 08/05/16 0754 budesonide (PULMICORT) 0.5 mg/2 mL nebulizer solution 0.5 mg 0.5 mg Nebulization BID S amber Pichardo MD 0.5 mg at 08/05/16 0751 escitalopram (LEXAPRO) tablet 20 mg 20 mg Oral Daily Neo Pichardo MD 20 mg at 07/19 10/04 0809 furosemide (LASIX) tablet 40 mg 40 mg Oral Daily Neo Pichardo MD 40 mg at 08/05/16 0816 HYDROmorphone (DILAUDID) injection 0.25-0.5 mg 0.25-0.5 mg Intravenous Q3H PRN Alli Yung DO 0.5 mg at 08/05/16 0853 lisinopril (PRINIVIL, ZESTRIL) tablet 20 mg 20 mg Oral Daily Neo Pichrado MD 20 mg at 08/05/16 0809 metoclopramide (REGLAN) 5 mg/mL injection 5 mg 5 mg Intravenous Q6H PRN Alli Noland an, DO 5 mg at 08/04/16 2322 morphine injection 4 mg 4 mg Intravenous Q3H PRN Neo Pichardo MD 4 mg at 08/04/16 2212 nicotine (NICODERM) 21 mg/24 hr 1 patch 1 patch Transdermal Daily Alli Yung DO 1 patch at 08/05/16 0807 nicotine polacrilex (COMMIT) lozenge 2 mg 2 mg Oral PRN Alli Yung DO NIFEdipine (PROCARDIA XL) ER tablet 30 mg 30 mg Oral Daily Neo Pichardo MD 30 mg a t 08/05/16 0809 nitroglycerin (NITROSTAT) SL tablet 0.4 mg 0.4 mg Sublingual Q5 Min PRN Neo Pichardo MD ondansetron (ZOFRAN) injection 4 mg 4 mg Intravenous Q6H PRN Neo Pichardo MD 4 mg at 08/04/16 1822 pantoprazole (PROTONIX) injection 40 mg 40 mg Intravenous Daily Neo Pichardo MD 40 mg at 08/05/16 0807 potassium chloride (K-DUR) ER tablet 40-60 mEq 40-60 mEq Oral PRN Neo Pichardo MD 60 mEq at 08/05/16 0539 And potassium chloride 20 mEq/15 mL liquid 40-60 mEq 40-60 mEq Feeding Tube PRN Neo blackman MD And potassium chloride 10 mEq in sterile water 100 mL IVPB 10 mEq Intravenous PRN Neo so MD promethazine (PHENERGAN) 12.5 mg in sodium chloride 0.9% 50 mL IVPB 12.5 mg Intravenou s Q6H PRN Neo Pichardo MD promethazine (PHENERGAN) 25 mg/mL (IV ONLY) injection ASSESSMENT and PLAN: Active Hospital Problems Diagnosis Hypertensive emergency Pancreatic insufficiency Hypertension Resolved Hospital Problems Diagnosis Date Noted Date Resolved No resolved problems to display. Hypertensive emergency: Improving. Resume patient's home lisinopril and Procardia. We'll start her Lasix today. Her BNP is elevated. Echo to assess for LV dysfunction. We'll DC nitroglycerin. Continue to encourage patient to discontinue chronic Sudafed and caffeinate d beverages. History of pancreatic insufficiency with nausea. Her liver function tests were normal at t he outside hospital. CT of the abdomen did not suggest any abnormalities. Allergic rhinitis- Will give claritin. Stop pseudophedrine. Depression/Anxiety- chronic F/e/n- oral fluids. Hypokalemia- replete K. cardiac diet DVT Prophylaxis Hep SC Code Status Full code Total time of approximately 35 minutes was spent with the patient and/or patient's family, and/or on the patient's floor/unit, of which more than 50% was spent counseling and/or coord ination the patient's care as outlined above. Neo Pichardo 08/05/2016 9:29 [facility] documented in this enc ounter Plan of Treatment Not on filedocumented as of this encounter Procedures + +--------+ + + + | Procedure Name | Priori | Date/Time | Associated Diagnosis | Comments | | | ty | | | | + +--------+ + + + | CBC NO DIFFERENTIAL | Routin | 08/07/2016 | | Results for this | | | e | 6:23 AM | | procedure are in the | | | | PDT | | results section. | + +--------+ + + + | BASIC METABOLIC | Routin | 08/07/2016 | | Results for this | | PANEL | e | 6:23 AM | | procedure are in the | | | | PDT | | results section. | + +--------+ + + + | PTT | Routin | 08/06/2016 | | Results for this | | | e | 4:33 AM | | procedure are in the | | | | PDT | | results section. | + +--------+ + + + | CBC NO DIFFERENTIAL | Routin | 08/06/2016 | | Results for this | | | e | 4:33 AM | | procedure are in the | | | | PDT | | results section. | + +--------+ + + + | MAGNESIUM | Add-On | 08/06/2016 | | Results for this | | | | 4:33 AM | | procedure are in the | | | | PDT | | results section. | + +--------+ + + + | BASIC METABOLIC | Routin | 08/06/2016 | | Results for this | | PANEL | e | 4:33 AM | | procedure are in the | | | | PDT | | results section. | + +--------+ + + + | MAGNESIUM | Routin | 08/05/2016 | | Results for this | | | e | 4:23 PM | | procedure are in the | | | | PDT | | results section. | + +--------+ + + + | BASIC METABOLIC | Routin | 08/05/2016 | | Results for this | | PANEL | e | 4:23 PM | | procedure are in the | | | | PDT | | results section. | + +--------+ + + + | DRUGS OF ABUSE, | Routin | 08/05/2016 | | Results for this | | SCREEN, URINE | e | 2:28 PM | | procedure are in the | | | | PDT | | results section. | + +--------+ + + + | ECHO COMPLETE | Routin | 08/05/2016 | | Results for this | | | e | 8:50 AM | | procedure are in the | | | | PDT | | results section. | + +--------+ + + + | CBC NO DIFFERENTIAL | Routin | 08/05/2016 | | Results for this | | | e | 3:29 AM | | procedure are in the | | | | PDT | | results section. | + +--------+ + + + | B TYPE NATRIURETIC | Routin | 08/05/2016 | | Results for this | | PEPTIDE | e | 3:29 AM | | procedure are in the | | | | PDT | | results section. | + +--------+ + + + | TROPONIN I | Add-On | 08/05/2016 | | Results for this | | | | 3:28 AM | | procedure are in the | | | | PDT | | results section. | + +--------+ + + + | MAGNESIUM | Add-On | 08/05/2016 | | Results for this | | | | 3:28 AM | | procedure are in the | | | | PDT | | results section. | + +--------+ + + + | HEPATIC FUNCTION | Add-On | 08/05/2016 | | Results for this | | PANEL | | 3:28 AM | | procedure are in the | | | | PDT | | results section. | + +--------+ + + + | BASIC METABOLIC | Routin | 08/05/2016 | | Results for this | | PANEL | e | 3:28 AM | | procedure are in the | | | | PDT | | results section. | + +--------+ + + + | TROPONIN I | STAT | 08/05/2016 | | Results for this | | | | 12:04 AM | | procedure are in the | | | | PDT | | results section. | + +--------+ + + + | PTT | STAT | 08/05/2016 | | Results for this | | | | 12:04 AM | | procedure are in the | | | | PDT | | results section. | + +--------+ + + + | ECG 12 LEAD | STAT | 08/04/2016 | | Results for this | | | | 10:47 PM | | procedure are in the | | | | PDT | | results section. | + +--------+ + + + | CT ABDOMEN PELVIS W | [facility] | 08/04/2016 | | Results for this | | CONTRAST | | 8:22 PM | | procedure are in the | | | | PDT | | results section. | + +--------+ + + + | HEPATIC FUNCTION | Add-On | 08/04/2016 | | Results for this | | PANEL | | 8:03 PM | | procedure are in the | | | | PDT | | results section. | + +--------+ + + + | ECG 12 LEAD | STAT | 08/04/2016 | | Results for this | | | | 6:42 PM | | procedure are in the | | | | PDT | | results section. | + +--------+ + + + | TROPONIN I | STAT | 08/04/2016 | | Results for this | | | | 6:27 PM | | procedure are in the | | | | PDT | | results section. | + +--------+ + + + | PTT | STAT | 08/04/2016 | | Results for this | | | | 6:27 PM | | procedure are in the | | | | PDT | | results section. | + +--------+ + + + | PROTIME INR | [facility] | 08/04/2016 | | Results for this | | | | 6:27 PM | | procedure are in the | | | | PDT | | results section. | + +--------+ + + + | CBC WITH | [facility] | 08/04/2016 | | Results for this | | DIFFERENTIAL | | 6:27 PM | | procedure are in the | | | | PDT | | results section. | + +--------+ + + + | MAGNESIUM | [facility] | 08/04/2016 | | Results for this | | | | 6:27 PM | | procedure are in the | | | | PDT | | results section. | + +--------+ + + + | LIPASE | Add-On | 08/04/2016 | | Results for this | | | | 6:27 PM | | procedure are in the | | | | PDT | | results section. | + +--------+ + + + | BASIC METABOLIC | [facility] | 08/04/2016 | | Results for this | | PANEL | | 6:27 PM | | procedure are in the | | | | PDT | | results section. | + +--------+ + + + | CULTURE, MRSA | Routin | 08/04/2016 | | Results for this | | | e | 6:23 PM | | procedure are in the | | | | PDT | | results section. | + +--------+ + + + | IMAGING REPORT - | | 08/04/2016 | | Results for this | | EXTERNAL SCAN | | 12:00 AM | | procedure are in the | | | | PDT | | results section. | + +--------+ + + + | LABS - EXTERNAL SCAN | | 08/04/2016 | | Results for this | | | | 12:00 AM | | procedure are in the | | | | PDT | | results section. | + +--------+ + + + | ECG - EXTERNAL SCAN | | 08/04/2016 | | Results for this | | | | 12:00 AM | | procedure are in the | | | | PDT | | results section. | + +--------+ + + + documented in this encounter Results CBC no Differential (08/07/2016 6:23 AM PDT) + + + + + + | Component | Value | Ref Range | Performed | Pathologist | | | | | At | Signature | + + + + + + | WBC | 8.8 | 4.0 - 11.0 K/uL | [facility] | | | | | [facility] | | [facility] | | [facility] | | [facility] - | | | | | | [facility]ORY | | + + + + + + | RBC | 4.79 | 3.70 - 5.20 | [facility] | | | | | M/uL | [facility] | | | | | | [facility] | | | | | | [facility] - | | | | | | LAB[facility]ATORY | | + + + + + + | Hemoglobin | 16.0 | 11.5 - 16.0 | [facility] | | | | | g/dL | [facility] | | | | | | [facility] | | | | | | [facility] - | | | | | | LAB[facility]ATORY | | + + + + + + | Hematocrit | 47.3 (H) | 34.0 - 47.0 % | [facility] | | | | | [facility] | | | | | | [facility] | | | | | | [facility] - | | | | | | LAB[facility]ATORY | | + + + + + + | MCV | 98.8 | 83.0 - 101.0 fL | [facility] | | | | | [facility] | | | | | | [facility] | | | | | [facility] - | | | | | | LAB[facility]ATORY | | + + + + + + | MCH | 33.4 | 28.0 - 35.0 pg | [facility] | | | | | [facility] | | | | | | [facility] | | | | | [facility] - | | | | | | [facility]ATORY | | + + + + + + | MCHC | 33.8 | 32.0 - 36.0 | [facility] | | | | | g/dL | [facility] | | | | | | [facility] | | | | | | [facility] - | | | | | | LABORATORY | | + + + + + + | RDW-CV | 12.9 | <15.0 % | [facility] | | | | | | [facility] | | | | | | [facility] | | | | | | [facility] - | | | | | | LABORATORY | | + + + + + + | Platelet | 376 | 140 - 440 K/uL | [facility] | | | Count | | | [facility] | | | | | | [facility] | | | | | | [facility] - | | | | | | LAB[facility]ATORY | | + + + + + + | MPV | 8.4 | fL | [facility] | | | | [facility] | | | | | | [facility] | | | | | | [facility] - | | | | | | LABORATORY | | + + + + + + + + | Specimen | + + | Blood | + + + + + + + | Performing | Address | City/State/Zipcode | Phone Number | | Organization | | | | + + + + + | [facility] | [address] | [place] | [phone] | | [facility] | | [address] | | | - LABORATORY | | | | + + + + + Basic Metabolic Panel (08/07/2016 6:23 AM PDT) + + + + + + | Component | Value | Ref Range | Performed | Pathologist | | | | | At | Signature | + + + + + + | Na | 135 (L) | 136 - 149 | [facility] | | | | | mmol/L | [facility] | | | | | | [facility] | | | | | | [facility] - | | | | | | LABORATORY | | + + + + + + | K | 3.8 | 3.5 - 5.1 | [facility] | | | | | mmol/L | [facility] | | | | | | [facility] | | | | | | CENTER - | | | | | | LABORATORY | | + + + + + + | Cl | 95 (L) | 98 - 109 mmol/L | [facility] | | | | | | [facility] | | | | | | [facility] | | | | | | C[facility] - | | | | | | LABORATORY | | + + + + + + | CO2 | 30 | 24 - 31 mmol/L | [facility] | | | | | | [facility] | | | | | | [facility] | | | | | | C[facility] - | | | | | | LABORATORY | | + + + + + + | Anion Gap | 10 | 3 - 16 mmol/L | [facility] | | | | | | [facility] [facility] | | | | | | [facility] | | | | | | CENTER - | | | | | | LABORATORY | | + + + + + + | Glucose | 86 | 70 - 109 mg/dL | [facility] | | | | | | [address] | | | | | | MEDICAL | | | | | | CENTER - | | | | | | LABORATORY | | + + + + + + | BUN | 7 | 7 - 18 mg/dL | [facility] | | | | | | [facility] | | | | | | [facility] | | | | | | [facility] - | | | | | | LAB[facility]ATORY | | + + + + + + | Creatinine | 0.54 (L) | 0.60 - 1.30 | [facility] | | | | | mg/dL | [facility] | | | | | [facility] | | | | | | [facility] - | | | | | | LAB[facility]ATORY | | + + + + + + | eGFR if not | >60Comment: GLOMERULAR | >=60 | [facility] | | | | FILTRATION | mL/min/1.73m2 | [facility] | | | CYMRO | RATE,ESTIMATED | | MEDICAL | | | | mL/min/1.03h0Poni than | | CENTER - | | | | 60 Chronic kidney | | LABORATORY | | | | disease,if found over a | | | | | | 3-month period.Less than | | | | | | 15 Kidney failureFor | | | | | | | | | | | | Americans,multiply the | | | | | | calculated GFR by 1.21. | | | | | | | | | | + + + + + + | Calcium | 9.6 | 8.3 - 10.5 | [facility] | | | | | mg/dL | [facility] | | | | | | MED[facility] | | | | | | CENTER - | | | | | | LABORATORY | | + + + + + + | BUN/Creatin | 13.0 | | [facility] | | | ine Ratio | | | . [facility] | | | | | | [facility] | | | | | | CENTER - | | | | | | LABORATORY | | + + + + + + + + | Specimen | + + | Blood | + + + + + + + | Performing | Address | City/State/Zipcode | Phone Number | | Organization | | | | + + + + + | [facility] | [address] | [place] | [phone] | | [facility] | | [address] | | | - LABORATORY | | | | + + + + + Magnesium (08/06/2016 4:33 AM PDT) + +-------+ + + + | Component | Value | Ref Range | Performed | Pathologist | | | | | At | Signature | + +-------+ + + + | Magnesium | 1.9 | 1.8 - 2.5 mg/dL | [facility] | | | | | | [facility] | | | | | | [facility]ICAL | | | | | | CENTER - | | | | | | LABORATORY | | + +-------+ + + + + + | Specimen | + + | Blood | + + + + + + + | Performing | Address | City/State/Zipcode | Phone Number | | Organization | | | | + + + + + | [facility] | [address] | [place] | [phone] | | [facility] | | [address] | | | - LABORATORY | | | | + + + + + PTT (08/06/2016 4:33 AM PDT) + +-------+ + + + | Component | Value | Ref Range | Performed | Pathologist | | | | | At | Signature | + +-------+ + + + | aPTT | 32 | 22 - 36 seconds | [facility] | | | | | | [facility] | | | | | | [facility] | | | | | | CENTER - | | | | | | LABORATORY | | + +-------+ + + + + + | Specimen | + + | Blood | + + + + + + + | Performing | Address | City/State/Zipcode | Phone Number | | Organization | | | | + + + + + | [facility] | [address] | [place] | [phone] | | [facility] | | [address] | | | - LABORATORY | | | | + + + + + CBC no Differential (08/06/2016 4:33 AM PDT) + + + + + + | Component | Value | Ref Range | Performed | Pathologist | | | | | At | Signature | + + + + + + | WBC | 11.1 (H) | 4.0 - 11.0 K/uL | [facility] | | | | | | [facility] | | | | | | MEDICAL | | | | | | CENTER - | | | | | | LABORATORY | | + + + + + + | RBC | 3.93 | 3.70 - 5.20 | [facility] | | | | | M/uL | [facility] | | | | | | MEDICAL | | | | | | CENTER - | | | | | | LABORATORY | | + + + + + + | Hemoglobin | 13.2 | 11.5 - 16.0 | [facility] | | | | | g/dL | [address] | | | | | | MEDICAL | | | | | | CENTER - | | | | | | LABORATORY | | + + + + + + | Hematocrit | 38.8 | 34.0 - 47.0 % | [facility] | | | | | | [facility] | | | | | | MEDICAL | | | | | | CENTER - | | | | | | LABORATORY | | + + + + + + | MCV | 99.0 | 83.0 - 101.0 fL | [facility] | | | | | | [facility] | | | | | | MEDICAL | | | | | | CENTER - | | | | | | LABORATORY | | + + + + + + | MCH | 33.5 | 28.0 - 35.0 pg | [facility] | | | | | | [facility] | | | | | | [facility] | | | | | | C[facility] - | | | | | | LABORATORY | | + + + + + + | MCHC | 33.9 | 32.0 - 36.0 | [facility] | | | | | g/dL | [facility] | | | | | | MEDICAL | | | | | | CENTER - | | | | | | LABORATORY | | + + + + + + | RDW-CV | 13.0 | <15.0 % | [facility] | | | | | | [facility] | | | | | | [facility] | | | | | | CENTER - | | | | | | LABORATORY | | + + + + + + | Platelet | 333 | 140 - 440 K/uL | [facility] | | | Count | | | [facility] | | | | | | [facility] | | | | | | CENTER - | | | | | | LABORATORY | | + + + + + + | MPV | 7.5 | fL | [facility] | | | | | | [facility] | | | | | | [facility] | | | | | | [facility] - | | | | | | LABORATORY | | + + + + + + + + | Specimen | + + | Blood | + + + + + + + | Performing | Address | City/State/Zipcode | Phone Number | | Organization | | | | + + + + + | [facility] | [address] | [place] | [phone] | | [facility] | | [address] | | | - LABORATORY | | | | + + + + + Basic Metabolic Panel (08/06/2016 4:33 AM PDT) + + + + + + | Component | Value | Ref Range | Performed | Pathologist | | | | | At | Signature | + + + + + + | Na | 134 (L) | 136 - 149 | [facility] | | | | | mmol/L | [facility] | | | | | | MEDICAL | | | | | | CENTER - | | | | | | LABORATORY | | + + + + + + | K | 3.1 (L) | 3.5 - 5.1 | [facility] | | | | | mmol/L | [facility] [facility] | | | | | | MEDICAL | | | | | | CENTER - | | | | | | LABORATORY | | + + + + + + | Cl | 95 (L) | 98 - 109 mmol/L | [facility] | | | | | | [facility] | | | | | | [facility] | | | | | | CENTER - | | | | | | LABORATORY | | + + + + + + | CO2 | 29 | 24 - 31 mmol/L | [facility] | | | | | | [facility] | | | | | | MEDICAL | | | | | | CENTER - | | | | | | LABORATORY | | + + + + + + | Anion Gap | 10 | 3 - 16 mmol/L | [facility] | | | | | | [facility] | | | | | | [facility]ICAL | | | | | | CENTER - | | | | | | LABORATORY | | + + + + + + | Glucose | 112 (H) | 70 - 109 mg/dL | [facility] | | | | | | [facility] | | | | | | [facility]ICAL | | | | | | CENTER - | | | | | | LABORATORY | | + + + + + + | BUN | 5 (L) | 7 - 18 mg/dL | [facility] | | | | | | [facility] | | | | | | MEDICAL | | | | | | CENTER - | | | | | | LABORATORY | | + + + + + + | Creatinine | 0.46 (L) | 0.60 - 1.30 | [facility] | | | | | mg/dL | [facility] | | | | | | MEDICAL | | | | | | CENTER - | | | | | | LABORATORY | | + + + + + + | eGFR if not | >60Comment: GLOMERULAR | >=60 | [facility] | | | | FILTRATION | mL/min/1.73m2 | [facility] | | | CYMRO | RATE,ESTIMATED | | MEDICAL | | | | mL/min/1.55g6Ydeu than | | CENTER - | | | | 60 Chronic kidney | | LABORATORY | | | | disease,if found over a | | | | | | 3-month period.Less than | | | | | | 15 Kidney failureFor | | | | | | | | | | | | Americans,multiply the | | | | | | calculated GFR by 1.21. | | | | | | | | | | + + + + + + | Calcium | 8.9 | 8.3 - 10.5 | [facility] | | | | | mg/dL | [facility] | | | | | | MEDICAL | | | | | | CENTER - | | | | | | LABORATORY | | + + + + + + | BUN/Creatin | 10.9 | | [facility] | | | ine Ratio | | | [facility] | | | | | | MEDICAL | | | | | | CENTER - | | | | | | LABORATORY | | + + + + + + + + | Specimen | + + | Blood | + + + + + + + | Performing | Address | City/State/Zipcode | Phone Number | | Organization | | | | + + + + + | [facility] | [address] | [place] | [phone] | | [facility] | | [address] | | | - LABORATORY | | | | + + + + + Magnesium (08/05/2016 4:23 PM PDT) + +---------+ + + + | Component | Value | Ref Range | Performed | Pathologist | | | | | At | Signature | + +---------+ + + + | Magnesium | 1.5 (L) | 1.8 - 2.5 mg/dL | [facility] | | | | | | [facility] | | | | | | [facility] | | | | | | CENTER - | | | | | | LABORATORY | | + +---------+ + + + + + | Specimen | + + | Blood | + + + + + + + | Performing | Address | City/State/Zipcode | Phone Number | | Organization | | | | + + + + + | [facility] | [address] | [place] | [phone] | | [facility] | | [id number] | | | - LABORATORY | | | | + + + + + Basic Metabolic Panel (08/05/2016 4:23 PM PDT) + + + + + + | Component | Value | Ref Range | Performed | Pathologist | | | | | At | Signature | + + + + + + | Na | 140 | 136 - 149 | [facility] | | | | | mmol/L | [facility] | | | | | | [facility] | | | | | | [facility] - | | | | | | LABORATORY | | + + + + + + | K | 3.2 (L) | 3.5 - 5.1 | [facility] | | | | | mmol/L | [facility] | | | | | | [facility] | | | | | | [facility] - | | | | | | LABORATORY | | + + + + + + | Cl | 101 | 98 - 109 mmol/L | [facility] | | [facility] | | | | | [facility] | | | | | | [facility] - | | | | | | LABORATORY | | + + + + + + | CO2 | 30 | 24 - 31 mmol/L | [facility] | [facility] | | | | | [facility] | | | | | | [facility] - | | | | | | LABORATORY | | + + + + + + | Anion Gap | 9 | 3 - 16 mmol/L | [facility] | | [facility] | [facility] | [facility] | | | | | | [facility] - | | | | | | LABORATORY | | + + + + + + | Glucose | 129 (H) | 70 - 109 mg/dL | [facility] | | | | | | [facility] | | | | | | [facility] | | | | | | [facility] - | | | | | | LABORATORY | | + + + + + + | BUN | 7 | 7 - 18 mg/dL | [facility] | | | | | [facility] | | | | | | [facility] | | | | | | [facility] - | | | | | | LAB[facility]ATORY | | + + + + + + | Creatinine | 0.58 (L) | 0.60 - 1.30 | [facility] | | | | | mg/dL | [facility] | | | [facility] | [facility] | | | | | | [facility] - | | | | | | LABORATORY | | + + + + + + | eGFR if not | >60Comment: GLOMERULAR | >=60 | [facility] | | | | FILTRATION | mL/min/1.73m2 | [facility] | | | [facility] | RATE,ESTIMATED | | MEDICAL | | | | mL/min/1.54v2Dupw than | | CENTER - | | | | 60 Chronic kidney | | LABORATORY | | | | disease,if found over a | | | | | | 3-month period.Less than | | | | | | 15 Kidney failureFor | | | | | | | | | | | | Americans,multiply the | | | | | | calculated GFR by 1.21. | | | | | | | | | | + + + + + + | Calcium | 9.3 | 8.3 - 10.5 | [facility] | | | | | mg/dL | [facility] | | | | | | MEDICAL | | | | | | CENTER - | | | | | | LABORATORY | | + + + + + + | BUN/Creatin | 12.1 | | [facility] | | | ine Ratio | | | [facility] | | | | | | MEDICAL | | | | | | CENTER - | | | | | | LABORATORY | | + + + + + + + + | Specimen | + + | Blood | + + + + + + + | Performing | Address | City/State/Zipcode | Phone Number | | Organization | | | | + + + + + | [facility] | [address] | [place] | [phone] | | [facility] | | [address] | | | - LABORATORY | | | | + + + + + Drugs of Abuse, Screen, Urine (08/05/2016 2:28 PM PDT) + + + + + + | Component | Value | Ref Range | Performed | Pathologist | | | | | At | Signature | + + + + + + | Amphetamine | Negative | Negative | [facility] | | | Screen, | | | [facility] | | | Urine | | | MEDICAL | | | | | | CENTER - | | | | | | LABORATORY | | + + + + + + | Barbiturate | Negative | Negative | [facility] | | | s Screen, | | | [facility] | | | Urine | | | MEDICAL | | | | | | CENTER - | | | | | | LABORATORY | | + + + + + + | Benzodiazep | Negative | Negative | [facility] | | | alphonso | | | [facility] | | | Screen, | | | MEDICAL | | | Urine | | | CENTER - | | | | | | LABORATORY | | + + + + + + | Cannabinoid | Positive (A) | Negative | [facility] | | | s Screen, | | | [facility] | | | Urine | | | MEDICAL | | | | | | CENTER - | | | | | | LABORATORY | | + + + + + + | Cocaine | Negative | Negative | [facility] | | | Screen, | | | [facility] | | | Urine | | | MEDICAL | | | | | | CENTER - | | | | | | LABORATORY | | + + + + + + | Methadone | Negative | Negative | [facility] | | | Screen, | | | [facility] | | | Urine | | | MEDICAL | | | | | | CENTER - | | | | | | LABORATORY | | + + + + + + | Opiates | Positive (A) | Negative | [facility] | | | Screen, | | | [facility] | | | Urine | | | MEDICAL | | | | | | CENTER - | | | | | | LABORATORY | | + + + + + + + + | Specimen | + + | Urine - Spot urine | | sample (specimen) | + + + + + + + | Performing | Address | City/State/Zipcode | Phone Number | | Organization | | | | + + + + + | [facility] | [address] | [place] | [phone] | | [facility] | | [address] | | | - LABORATORY | | | | + + + + + ECHO Complete (08/05/2016 8:50 AM PDT) + +-------+ + + + | Component | Value | Ref Range | Performed | Pathologist | | | | | At | Signature | + +-------+ + + + | LVEF-TTE | 65 | | | | | TRANSTHORAC | | | | | | IC ECHO | | | | | + +-------+ + + + + + | Specimen | + + | | + + + +-- + | Narrative | P erformed At | + +-- + | Transthoracic | | | Echocardiography Report (TTE) Demographics Patient Name MURIEL | | | ONEAL Room Number 458 | | | [place] Patient Number [id number] Date of Study | | | 08/05/2016 Visit Number [id number] Accession | | | [id number] Referring Physician JAZLYN MORILLO Number | | | Date of 1955 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 Procedure dateDate: | | | 08/05/2016Start: 08:21 AM Technical Quality: Adequate | | | visualizationStudy Location: ICUIndications: Hypertension | | | 401.1/I10.Patient Status: RoutineHeight: 65 inchesWeight: 136 | | | poundsBSA: 1.68 m^2BMI: 22.63 kg/m^2Rhythm: Normal Sinus RhythmHR: 60 | | | bpm ConclusionsSummaryLeft ventricle is normal in size and function. | | | Ejection fraction isestimated at 65%.There is grade 1 LV diastolic | | | dysfunction.Mild mitral regurgitation. | | | Signature | | | | | | PM | | | -------- FindingsMitral ValveMitral valve is suboptimally visualized. | | | It appears to be mildly thickenedwith mild regurgitation.Aortic | | | ValveAortic valve is trileaflet with good systolic excursion.Tricuspid | | | ValveStructurally normal tricuspid valve without significant stenosis | | | orregurgitation.Pulmonic ValveStructurally normal pulmonic valve | | | without significant stenosis orregurgitation.Left AtriumNormal left | | | atrium.Left VentricleLeft ventricle is normal in size and function. | | | There is suboptimalendocardial resolution. Ejection fraction is | | | estimated at 65%.There is grade 1 LV diastolic dysfunction.Right | | | AtriumNormal right atrium.Right VentricleNormal right ventricular | | | size.Right ventricle global systolic function is normal.Pericardial | | | EffusionNo evidence of pericardial effusion.Pleural EffusionNo | | | evidence of pleural effusion.MiscellaneousNormal aortic root.The IVC | | | appears normal.IVC respiratory change in dimension > 50%. Valves | | | Mitral Valve Peak E-Wave: 0.75 m/s Peak A-Wave: 0.84 m/s Tissue | | | Doppler Septal e' Velocity: 0.05 m/s Septal E/e' Ratio:13.91 Aortic | | | Valve Structures Left Atrium LA A/P Dimension: 3.02 cm | | | LA Area: 19.26 cm^2 LA Vol/BSA Index: 33 mL/m^2 | | | LA Volume: 55.37 ml | | | EF Cklbmzsef17% Left | | | Ventricle Diastolic Dimension: 5.52 cm Systolic | | | Dimension: 3.51 cm Septum Diastolic: 0.94 cm PW Diastolic: 1.06 cm EF | | | Calculated: 65% Miscellaneous Aorta Aortic Root: 3.21 cm Ascending | | | Aorta: 3.62 cm | | | 08/05/2016 12:03 PM | | | | | | | | |Findings | | |Mitral Valve | | |Mitral valve is suboptimally visualized. It appears to be mildly thickened | | |with mild regurgitation. | | |Aortic Valve | | |Aortic valve is trileaflet with good systolic excursion. | | |Tricuspid Valve | | |Structurally normal tricuspid valve without significant stenosis or | | |regurgitation. | | |Pulmonic Valve | | |Structurally normal pulmonic valve without significant stenosis or | | |regurgitation. | | |Left Atrium | | |Normal left atrium. | | |Left Ventricle | | |Left ventricle is normal in size and function. There is suboptimal | | |endocardial resolution. Ejection fraction is estimated at 65%. | | |There is grade 1 LV diastolic dysfunction. | | |Right Atrium | | |Normal right atrium. | | |Right Ventricle | | |Normal right ventricular size. | | |Right ventricle global systolic function is normal. | | |Pericardial Effusion | | |No evidence of pericardial effusion. | | |Pleural Effusion | | |No evidence of pleural effusion. | | |Miscellaneous | | |Normal aortic root. | | |The IVC appears normal. | | |IVC respiratory change in dimension > 50%. | | | | | |Valves | | | | | | Mitral Valve | | | | | | Peak E-Wave: 0.75 m/s | | | Peak A-Wave: 0.84 m/s | | | | | | Tissue Doppler | | | | | | Septal e' Velocity: 0.05 m/s | | | Septal E/e' Ratio:13.91 | | | | | | Aortic Valve | | | | | |Structures | | | | | | Left Atrium | | | | | | LA A/P Dimension: 3.02 cm LA Area: 19.26 cm^2 | | | LA Vol/BSA Index: 33 mL/m^2 LA Volume: 55.37 ml | | | EF Dxodenwky29% | | | | | | Left Ventricle | | | | | | Diastolic Dimension: 5.52 cm Systolic Dimension: 3.51 cm | | | Septum Diastolic: 0.94 cm | | | PW Diastolic: 1.06 cm | | | EF Calculated: 65% | | | | | | Miscellaneous | | | | | | Aorta | | | | | | Aortic Root: 3.21 cm | | | Ascending Aorta: 3.62 cm | | | | | + +-- + + + | Procedure Note | + + | [place] Results In - 08/05/2016 12:04 PM PDT Transthoracic Echocardiography Report | | (TTE) Demographics Patient Name MURIEL ONEAL Room Number 458 | | [place] Patient Number [id number] Date of Study 08/05/2016 Visit Number | | [id number] Referring Physician JAZLYN MORILLO Number | | Date of 1955 Strategic Accounts Manager GAVIN JENNINGS [facility] Age | | 60 year(s) Interpreting ER[facility] | | Senior Sales Associate LEILANI SUAREZ MD Gender Female Nurse | | Stress TechnicianProcedureType of Study TTE procedure: ECHO | | Complete.Procedure dateDate: 08/05/2016Start: 08:21 AMTechnical Quality: Adequate | | visualizationStudy Location: ICUIndications: Hypertension 401.1/I10.Patient Status: | | RoutineHeight: 65 inchesWeight: 136 poundsBSA: 1.68 m^2BMI: 22.63 kg/m^2Rhythm: Normal | | Sinus RhythmHR: 60 bpmConclusionsSummaryLeft ventricle is normal in size and function. | | Ejection fraction isestimated at 65%.There is grade 1 LV diastolic dysfunction.Mild | | mitral | | regurgitation.Signature | | Electronically signed by LEILANI SUAREZ MD(Interpreting physician) on | | 08/05/2016 12:03 | | PM FindingsMi | | tral ValveMitral valve is suboptimally visualized. It appears to be mildly thickenedwith | | mild regurgitation.Aortic ValveAortic valve is trileaflet with good systolic | | excursion.Tricuspid ValveStructurally normal tricuspid valve without significant | | stenosis orregurgitation.Pulmonic ValveStructurally normal pulmonic valve without | | significant stenosis orregurgitation.Left AtriumNormal left atrium.Left VentricleLeft | | ventricle is normal in size and function. There is suboptimalendocardial resolution. | | Ejection fraction is estimated at 65%.There is grade 1 LV diastolic dysfunction.Right | | AtriumNormal right atrium.Right VentricleNormal right ventricular size.Right ventricle | | global systolic function is normal.Pericardial EffusionNo evidence of pericardial | | effusion.Pleural EffusionNo evidence of pleural effusion.MiscellaneousNormal aortic | | root.The IVC appears normal.IVC respiratory change in dimension > 50%.Valves Mitral | | Valve Peak E-Wave: 0.75 m/s Peak A-Wave: 0.84 m/s Tissue Doppler Septal e' Velocity: | | 0.05 m/s Septal E/e' Ratio:13.91 Aortic ValveStructures Left Atrium LA A/P Dimension: | | 3.02 cm LA Area: 19.26 cm^2 LA Vol/BSA Index: 33 mL/m^2 | | LA Volume: 55.37 ml EF | | Viodzpafs47% Left Ventricle Diastolic Dimension: 5.52 cm Systolic Dimension: | | 3.51 cm Septum Diastolic: 0.94 cm PW Diastolic: 1.06 cm EF Calculated: 65% Miscellaneous | | Aorta Aortic Root: 3.21 cm Ascending Aorta: 3.62 cm | |Rhythm: Normal Sinus RhythmHR: 60 bpm | | | |Conclusions | |Summary | |Left ventricle is normal in size and function. Ejection fraction is | |estimated at 65%. | |There is grade 1 LV diastolic dysfunction. | |Mild mitral regurgitation. | | | |Signature | | | | Electronically signed by LEILANI SUAREZ MD(Interpreting physician) on | | 08/05/2016 12:03 PM | | | | | |Findings | |Mitral Valve | |Mitral valve is suboptimally visualized. It appears to be mildly thickened | |with mild regurgitation. | |Aortic Valve | |Aortic valve is trileaflet with good systolic excursion. | |Tricuspid Valve | |Structurally normal tricuspid valve without significant stenosis or | |regurgitation. | |Pulmonic Valve | |Structurally normal pulmonic valve without significant stenosis or | |regurgitation. | |Left Atrium | |Normal left atrium. | |Left Ventricle | |Left ventricle is normal in size and function. There is suboptimal | |endocardial resolution. Ejection fraction is estimated at 65%. | |There is grade 1 LV diastolic dysfunction. | |Right Atrium | |Normal right atrium. | |Right Ventricle | |Normal right ventricular size. | |Right ventricle global systolic function is normal. | |Pericardial Effusion | |No evidence of pericardial effusion. | |Pleural Effusion | |No evidence of pleural effusion. | |Miscellaneous | |Normal aortic root. | |The IVC appears normal. | |IVC respiratory change in dimension > 50%. | | | |Valves | | | | Mitral Valve | | | | Peak E-Wave: 0.75 m/s | | Peak A-Wave: 0.84 m/s | | | | Tissue Doppler | | | | Septal e' Velocity: 0.05 m/s | | Septal E/e' Ratio:13.91 | | | | Aortic Valve | | | |Structures | | | | Left Atrium | | | | LA A/P Dimension: 3.02 cm LA Area: 19.26 cm^2 | | LA Vol/BSA Index: 33 mL/m^2 LA Volume: 55.37 ml | | EF Ihkgspxqj16% | | | | Left Ventricle | | | | Diastolic Dimension: 5.52 cm Systolic Dimension: 3.51 cm | | Septum Diastolic: 0.94 cm | | PW Diastolic: 1.06 cm | | EF Calculated: 65% | | | | Miscellaneous | | | | Aorta | | | | Aortic Root: 3.21 cm | | Ascending Aorta: 3.62 cm | + + B Type Natriuretic Peptide (08/05/2016 3:29 AM PDT) + +---------+ + + + | Component | Value | Ref Range | Performed | Pathologist | | | | | At | Signature | + +---------+ + + + | BNP | 767 (H) | <100 pg/mL | [facility] | | | | | | [facility] | | | | | | MEDICAL | | | | | | CENTER - | | | | | | LABORATORY | | + +---------+ + + + + + | Specimen | + + | Blood | + + + + + + + | Performing | Address | City/State/Zipcode | Phone Number | | Organization | | | | + + + + + | [facility] | [address] | [place] | [phone] | | [facility] | | [address] | | | - LABORATORY | | | | + + + + + CBC no Differential (08/05/2016 3:29 AM PDT) + +-------+ + + + | Component | Value | Ref Range | Performed | Pathologist | | | | | At | Signature | + +-------+ + + + | WBC | 7.9 | 4.0 - 11.0 K/uL | [facility] | | | | | | [facility] | | | | | | MEDICAL | | | | | | CENTER - | | | | | | LABORATORY | | + +-------+ + + + | RBC | 3.70 | 3.70 - 5.20 | [facility] | | | | | M/uL | [facility] | | | | | | MEDICAL | | | | | | CENTER - | | | | | | LABORATORY | | + +-------+ + + + | Hemoglobin | 12.4 | 11.5 - 16.0 | [facility] | | | | | g/dL | [facility] | | | | | | MEDICAL | | | | | | CENTER - | | | | | | LABORATORY | | + +-------+ + + + | Hematocrit | 36.8 | 34.0 - 47.0 % | [facility] | | | | | | [facility] | | | | | | MEDICAL | | | | | | CENTER - | | | | | | LABORATORY | | + +-------+ + + + | MCV | 99.5 | 83.0 - 101.0 fL | [facility] | | | | | | [facility] | | | | | | MEDICAL | | | | | | CENTER - | | | | | | LABORATORY | | + +-------+ + + + | MCH | 33.5 | 28.0 - 35.0 pg | [facility] | | | | | | [facility] | | | | | | MEDICAL | | | | | | CENTER - | | | | | | LABORATORY | | + +-------+ + + + | MCHC | 33.7 | 32.0 - 36.0 | [facility] | | | | | g/dL | [facility] | | | | | | MEDICAL | | | | | | CENTER - | | | | | | LABORATORY | | + +-------+ + + + | RDW-CV | 13.3 | <15.0 % | [facility] | | | | | | [facility] | | | | | | MEDICAL | | | | | | CENTER - | | | | | | LABORATORY | | + +-------+ + + + | Platelet | 310 | 140 - 440 K/uL | [facility] | | | Count | | | [facility] | | | | | | MEDICAL | | | | | | CENTER - | | | | | | LABORATORY | | + +-------+ + + + | MPV | 7.5 | fL | [facility] | | | | | | [facility] | | | | | | MEDICAL | | | | | | CENTER - | | | | | | LABORATORY | | + +-------+ + + + + + | Specimen | + + | Blood | + + + + + + + | Performing | Address | City/State/Zipcode | Phone Number | | Organization | | | | + + + + + | [facility] | [address] | [place] | [phone] | | [facility] | | [address] | | | - LABORATORY | | | | + + + + + Hepatic Function Panel (08/05/2016 3:28 AM PDT) + +---------+ + + + | Component | Value | Ref Range | Performed | Pathologist | | | | | At | Signature | + +---------+ + + + | Bilirubin | 0.5 | 0.1 - 1.5 mg/dL | [facility] | | | Total | | | [facility] | | | | | | MEDICAL | | | | | | CENTER - | | | | | | LABORATORY | | + +---------+ + + + | Total | 5.8 (L) | 6.0 - 7.8 g/dL | [facility] | | | Protein | | | [facility] | | | | | | MEDICAL | | | | | | CENTER - | | | | | | LABORATORY | | + +---------+ + + + | Albumin | 3.3 | 3.2 - 5.0 g/dL | [facility] | | | | | | [facility] | | | | | | MEDICAL | | | | | | CENTER - | | | | | | LABORATORY | | + +---------+ + + + | AST | 39 | 10 - 42 U/L | [facility] | | | | | | [facility] | | | | | | MEDICAL | | | | | | CENTER - | | | | | | LABORATORY | | + +---------+ + + + | ALT | 30 | 6 - 45 U/L | [facility] | | | | | | [facility] | | | | | | MEDICAL | | | | | | CENTER - | | | | | | LABORATORY | | + +---------+ + + + | Alkaline | 133 (H) | 40 - 110 U/L | [facility] | | | Phosphatase | | | [facility] | | | | | | MEDICAL | | | | | | CENTER - | | | | | | LABORATORY | | + +---------+ + + + | Globulin | 2.5 | 2.1 - 3.8 g/dL | [facility] | | | | | | [facility] | | | | | | MEDICAL | | | | | | CENTER - | | | | | | LABORATORY | | + +---------+ + + + | Albumin/Lyndsey | 1.3 | 0.8 - 2.0 | [facility] | | | bulin Ratio | | | [facility] | | | | | | MEDICAL | | | | | | CENTER - | | | | | | LABORATORY | | + +---------+ + + + | Bilirubin, | 0.20 | 0.00 - 0.20 | [facility] | | | Direct | | mg/dl | [facility] | | | | | | MEDICAL | | | | | | CENTER - | | | | | | LABORATORY | | + +---------+ + + + + + | Specimen | + + | Blood | + + + + + + + | Performing | Address | City/State/Zipcode | Phone Number | | Organization | | | | + + + + + | [facility] | [address] | [place] | [phone] | | [facility] | | [address] | | | - LABORATORY | | | | + + + + + Magnesium (08/05/2016 3:28 AM PDT) + +-------+ + + + | Component | Value | Ref Range | Performed | Pathologist | | | | | At | Signature | + +-------+ + + + | Magnesium | 1.8 | 1.8 - 2.5 mg/dL | [facility] | | | | | | [facility] | | | | | | MEDICAL | | | | | | CENTER - | | | | | | LABORATORY | | + +-------+ + + + + + | Specimen | + + | Blood | + + + + + + + | Performing | Address | City/State/Zipcode | Phone Number | | Organization | | | | + + + + + | [facility] | [address] | [place] | [phone] | | [facility] | | [address] | | | - LABORATORY | | | | + + + + + Troponin I (08/05/2016 3:28 AM PDT) + + + + + + | Component | Value | Ref Range | Performed | Pathologist | | | | | At | Signature | + + + + + + | Troponin I | 0.22 (H)Comment: | <0.06 ng/mL | [facility] | | | | Reference | | [facility] | | | | Ranges:0.00-0.06 = | | MEDICAL | | | | NORMAL>0.06 = | | CENTER - | | | | SUSPICIOUS FOR | | LABORATORY | | | | MYOCARDIAL DAMAGE NOTE: | | | | | | Values greater than 0.50 | | | | | | ng/mL have been shown | | | | | | to be strongly | | | | | | associated with acute | | | | | | myocardial infarction. | | | | | | The [employer] | | | | | | Cardiology (ACC) | | | | | | recommends a decision | | | | | | limit of 0.06 ng/mL for | | | | | | this assay. Results | | | | | | greater than 0.06 can | | | | | | reflect a pre-infarct | | | | | | acute coronary syndrome, | | | | | | but can also reflect | | | | | | myocardial necrosis or | | | | | | injury that is not due | | | | | | to coronary artery | | | | | | disease. Some of these | | | | | | causes are sepsis, | | | | | | hypocolemia, atrial | | | | | | fibrillation, heart | | | | | | failure, pulmonary | | | | | | embolism, myocarditis, | | | | | | myocardial contusion, | | | | | | and renal failure. The | | | | | | diagnosis of myocardial | | | | | | infarction should be | | | | | | based on a combination | | | | | | of the patient's | | | | | | clinical presentation | | | | | | and the clinical | | | | | | laboratory test results | | | | | | (especially serial | | | | | | troponin levels). | | | | + + + + + + + + | Specimen | + + | Blood | + + + + + + + | Performing | Address | City/State/[facility] Centercode | Phone Number | | Organization | | | | + + + + + | [facility] | [address] | [place] | [phone] | | [facility] | | [address] | | | - LABORATORY | | | | + + + + + Basic Metabolic Panel (08/05/2016 3:28 AM PDT) + + + + + + | Component | Value | Ref Range | Performed | Pathologist | | | | | At | Signature | + + + + + + | Na | 135 (L) | 136 - 149 | [facility] | | | | | mmol/L | [facility] | | | | | | MEDICAL | | | | | | CENTER - | | | | | | LABORATORY | | + + + + + + | K | 3.2 (L) | 3.5 - 5.1 | [facility] | | | | | mmol/L | [facility] | | | | | | MEDICAL | | | | | | CENTER - | | | | | | LABORATORY | | + + + + + + | Cl | 100 | 98 - 109 mmol/L | [facility] | | | | | | [facility] | | | | | | MEDICAL | | | | | | CENTER - | | | | | | LABORATORY | | + + + + + + | CO2 | 28 | 24 - 31 mmol/L | [facility] | | | | | | [facility] | | | | | | MEDICAL | | | | | | CENTER - | | | | | | LABORATORY | | + + + + + + | Anion Gap | 7 | 3 - 16 mmol/L | [facility] | | | | | | [facility] | | | | | | MEDICAL | | | | | | CENTER - | | | | | | LABORATORY | | + + + + + + | Glucose | 106 | 70 - 109 mg/dL | [facility] | | | | | | [facility] | | | | | | MEDICAL | | | | | | CENTER - | | | | | | LABORATORY | | + + + + + + | BUN | 8 | 7 - 18 mg/dL | [facility] | | | | | | [facility] | | | | | | MEDICAL | | | | | | CENTER - | | | | | | LABORATORY | | + + + + + + | Creatinine | 0.54 (L) | 0.60 - 1.30 | [facility] | | | | | mg/dL | [facility] | | | | | | MEDICAL | | | | | | CENTER - | | | | | | LABORATORY | | + + + + + + | eGFR if not | >60Comment: GLOMERULAR | >=60 | [facility] | | | | FILTRATION | mL/min/1.73m2 | [facility] | | | [facility]MRO | RATE,ESTIMATED | | MEDICAL | | | | mL/min/1.38r5Intd than | | CENTER - | | | | 60 Chronic kidney | | LABORATORY | | | | disease,if found over a | | | | | | 3-month period.Less than | | | | | | 15 Kidney failureFor | | | | | | | | | | | | Americans,multiply the | | | | | | calculated GFR by 1.21. | | | | | | | | | | + + + + + + | Calcium | 8.1 (L) | 8.3 - 10.5 | [facility] | | | | | mg/dL | [facility] | | | | | | MEDICAL | | | | | | CENTER - | | | | | | LABORATORY | | + + + + + + | BUN/Creatin | 14.8 | | [facility] | | | ine Ratio | | | [facility] | | | | | | MEDICAL | | | | | | CENTER - | | | | | | LABORATORY | | + + + + + + + + | Specimen | + + | Blood | + + + + + + + | Performing | Address | City/State/Zipcode | Phone Number | | Organization | | | | + + + + + | [facility] | [address] | [place] | [phone] | | [facility] | | [address] | | | - LABORATORY | | | | + + + + + PTT (08/05/2016 12:04 AM PDT) + +--------+ + + + | Component | Value | Ref Range | Performed | Pathologist | | | | | At | Signature | + +--------+ + + + | aPTT | 73 (H) | 22 - 36 seconds | [facility] | | | | | | [facility] | | | | | | MEDICAL | | | | | | CENTER - | | | | | | LABORATORY | | + +--------+ + + + + + | Specimen | + + | Blood | + + + + + + + | Performing | Address | City/State/Zipcode | Phone Number | | Organization | | | | + + + + + | [facility] | [address] | [place] | [phone] | | [facility] | | [address] | | | - LABORATORY | | | | + + + + + Troponin I (08/05/2016 12:04 AM PDT) + + + + + + | Component | Value | Ref Range | Performed | Pathologist | | | | | At | Signature | + + + + + + | Troponin I | 0.22 (H)Comment: | <0.06 ng/mL | [facility] | | | | Reference | | [facility] | | | | Ranges:0.00-0.06 = | | MEDICAL | | | | NORMAL>0.06 = | | CENTER - | | | | SUSPICIOUS FOR | | LABORATORY | | | | MYOCARDIAL DAMAGE NOTE: | | | | | | Values greater than 0.50 | | | | | | ng/mL have been shown | | | | | | to be strongly | | | | | | associated with acute | | | | | | myocardial infarction. | | | | | | The [employer] | | | | | | Cardiology (ACC) | | | | | | recommends a decision | | | | | | limit of 0.06 ng/mL for | | | | | | this assay. Results | | | | | | greater than 0.06 can | | | | | | reflect a pre-infarct | | | | | | acute coronary syndrome, | | | | | | but can also reflect | | | | | | myocardial necrosis or | | | | | | injury that is not due | | | | | | to coronary artery | | | | | | disease. Some of these | | | | | | causes are sepsis, | | | | | | hypocolemia, atrial | | | | | | fibrillation, heart | | | | | | failure, pulmonary | | | | | | embolism, myocarditis, | | | | | | myocardial contusion, | | | | | | and renal failure. The | | | | | | diagnosis of myocardial | | | | | | infarction should be | | | | | | based on a combination | | | | | | of the patient's | | | | | | clinical presentation | | | | | | and the clinical | | | | | | laboratory test results | | | | | | (especially serial | | | | | | troponin levels). | | | | + + + + + + + + | Specimen | + + | Blood | + + + + + + + | Performing | Address | City/State/Zipcode | Phone Number | | Organization | | | | + + + + + | [facility] | [address] | [place] | [phone] | | [facility] | | [id number] | | | - LABORATORY | | | | + + + + + ECG 12 lead (08/04/2016 10:47 PM PDT) + + + + + + | Component | Value | Ref Range | Performed | Pathologist | | | | | At | Signature | + + + + + + | VENTRICULAR | 65 | BPM | [facility] | | | RATE EKG | | | | | + + + + + + | ATRIAL RATE | 65 | BPM | [facility] | | + + + + + + | P-R | 164 | ms | [facility] | | | INTERVAL | | | | | + + + + + + | QRS | 94 | ms | [facility] | | | DURATION | | | | | + + + + + + | Q-T | 532 | ms | [facility] | | | INTERVAL | | | | | + + + + + + | Q-T | 553 | ms | [facility] | | | INTERVAL | | | | | | (CORRECTED) | | | | | + + + + + + | P WAVE AXIS | 75 | degrees | [facility] | | + + + + + + | QRS AXIS | 79 | degrees | [facility] | | + + + + + + | T AXIS | 91 | degrees | [facility] | | + + + + + + | INTERPRETAT | Normal sinus rhythmLeft | | [facility] | | | ION TEXT | ventricular | | | | | | hypertrophyProlonged QTU | | | | | | waves:consider | | | | | | electrolyte | | | | | | disturbanceST and T wave | | | | | | abnormalities which may | | | | | | be secondary to LVH, | | | | | | ischemia or evolution of | | | | | | a recent ischemic | | | | | | event.Abnormal ECGWhen | | | | | | compared with ECG of | | | | | | 04-AUG-2016 18:42, | | | | | | (Unconfirmed)No | | | | | | significant change was | | | | | | foundConfirmed by | | | | | | JAMMIE ALONSO MD ([id number]) | | | | | | on 08/05/2016 8:00:10 PM | | | | + + + + + + + + | Specimen | + + | | + + + + + | Narrative | Performed At | + + + | | | + + + + +---------+ + + | Performing | Address | City/State/Zipcode | Phone Number | | Organization | | | | + +---------+ + + | [facility] | | | | + +---------+ + + CT Abdomen Pelvis w Contrast (08/04/2016 8:22 PM PDT) + + | Specimen | + + | | + + + + + | Narrative | Performed At | + + + | TECHNIQUE: After administration of 85 mL Omnipaque 350 | [facility] | | intravenously, axial CT imaging was obtained through the abdomen and | | | pelvis with coronal and sagittal reformats. CLINICAL INFORMATION: | | | emesis, h/o pancreatic insufficiency COMPARISON: None available. | | | FINDINGS: LUNGS: Mild intralobular septal thickening with | | | tiny peripheral lung base groundglass nodularity noted suggesting | | | pulmonary edema. No pleural effusion. BONES: No acute osseous | | | abnormality. No osteoblastic or osteolytic lesion. ABDOMEN/PELVIS: | | | Abdominal wall: Normal. Liver: Inferior peripheral right hepatic | | | lobe cyst. Mild hepatomegaly. No hepatic soft tissue mass. | | | Gallbladder: Cholecystectomy clips at the gallbladder fossa. Prominent | | | appearance of the common bile duct measuring up to 9 mm, likely | | | postsurgical change. Pancreas: Slight prominence of the pancreatic | | | duct measuring up to 4 mm without pancreatic mass lesion or | | | pancreatic atrophy. Spleen: Normal. Adrenals: Normal. Kidneys: | | | Right and left midpole subcentimeter hypodensities, too small to fully | | | characterize. Ureters: Normal Urinary Bladder: Normal. | | | Reproductive organs: No adnexal mass. Bowel: Multiple scattered | | | colonic diverticula without pericolonic inflammation the appendix is | | | not visualized. No inflammatory changes at the right lower quadrant. | | | No evidence to suggest bowel obstruction. Peritoneum: No ascites or | | | free air. No lymphadenopathy. Retroperitoneum: Normal. Vessels: | | | Normal caliber of the abdominal aorta. IMPRESSION - No | | | acute abdominal or pelvic abnormality. Probable mild pulmonary | | | edema. Dictated and Signed by: Hang Evans MD | | | Electronically signed: 08/05/2016 1:46 PM | | + + + + + | Procedure Note | + + | Shorty, Rad Results In - 08/05/2016 1:49 PM PDT | | TECHNIQUE: After administration of 85 mL Omnipaque 350 intravenously, axial CT | | imaging was obtained through the abdomen and pelvis with coronal and sagittal | | reformats. | | | | CLINICAL INFORMATION: emesis, h/o pancreatic insufficiency | | | | COMPARISON: None available. | | | | FINDINGS: | | | | LUNGS: Mild intralobular septal thickening with tiny peripheral lung base | | groundglass nodularity noted suggesting pulmonary edema. No pleural effusion. | | | | BONES: No acute osseous abnormality. No osteoblastic or osteolytic lesion. | | | | ABDOMEN/PELVIS: | | Abdominal wall: Normal. | | | | Liver: Inferior peripheral right hepatic lobe cyst. Mild hepatomegaly. No | | hepatic soft tissue mass. | | Gallbladder: Cholecystectomy clips at the gallbladder fossa. Prominent | | appearance of the common bile duct measuring up to 9 mm, likely postsurgical | | change. | | Pancreas: Slight prominence of the pancreatic duct measuring up to 4 mm without | | pancreatic mass lesion or pancreatic atrophy. | | Spleen: Normal. | | Adrenals: Normal. | | Kidneys: Right and left midpole subcentimeter hypodensities, too small to fully | | characterize. | | Ureters: Normal | | Urinary Bladder: Normal. | | Reproductive organs: No adnexal mass. | | Bowel: Multiple scattered colonic diverticula without pericolonic inflammation | | the appendix is not visualized. No inflammatory changes at the right lower | | quadrant. No evidence to suggest bowel obstruction. | | Peritoneum: No ascites or free air. No lymphadenopathy. | | Retroperitoneum: Normal. | | Vessels: Normal caliber of the abdominal aorta. | | | | | | IMPRESSION - | | | | No acute abdominal or pelvic abnormality. | | | | Probable mild pulmonary edema. | | | | Dictated and Signed by: Hang Evans MD | | Electronically signed: 08/05/2016 1:46 PM | + + + +---------+ + + | Performing | Address | City/State/Zipcode | Phone Number | | Organization | | | | + +---------+ + + | [facility] | | | | + +---------+ + + Hepatic Function Panel (08/04/2016 8:03 PM PDT) + + + + + + | Component | Value | Ref Range | Performed | Pathologist | | | | | At | Signature | + + + + + + | Bilirubin | 0.8 | 0.1 - 1.5 mg/dL | [facility] | | | Total | | | [facility] | | | | | | [facility] | | | | | | C[facility] - | | | | | | LABORATORY | | + + + + + + | Total | 6.0 | 6.0 - 7.8 g/dL | [facility] | | | Protein | | | [address] | | | | | | MEDICAL | | | | | | CENTER - | | | | | | LABORATORY | | + + + + + + | Albumin | 3.2 | 3.2 - 5.0 g/dL | [facility] | | | | | | [facility] | | | | | | [facility] | | | | | | CENTER - | | | | | | LABORATORY | | + + + + + + | AST | 52 (H) | 10 - 42 U/L | [facility] | | | | | | [facility] | | | | | | [facility] | | | | | | CENTER - | | | | | | LABORATORY | | + + + + + + | ALT | 36 | 6 - 45 U/L | [facility] | | | | | | [facility] | | | | | | [facility] | | | | | | CENTER - | | | | | | LABORATORY | | + + + + + + | Alkaline | 157 (H) | 40 - 110 U/L | [facility] | | | Phosphatase | | | [facility] | | | | | | [facility] | | | | | | CENTER - | | | | | | LABORATORY | | + + + + + + | Globulin | 2.8 | 2.1 - 3.8 g/dL | [facility] | | | | | | [facility] | | | | | | [facility] | | | | | | CENTER - | | | | | | LABORATORY | | + + + + + + | Albumin/Lyndsey | 1.1 | 0.8 - 2.0 | [facility] | | | bulin Ratio | | | [facility] | | | | | | MEDICAL | | | | | | CENTER - | | | | | | LABORATORY | | + + + + + + | Bilirubin, | 0.30 (H) | 0.00 - 0.20 | [facility] | | | Direct | | mg/dl | [facility] | | | | | | MEDICAL | | | | | | CENTER - | | | | | | LABORATORY | | + + + + + + + + | Specimen | + + | Blood | + + + + + + + | Performing | Address | City/State/Zipcode | Phone Number | | Organization | | | | + + + + + | [facility] | [address] | [place] | [phone] | | [facility] | | [address] | | | - LABORATORY | | | | + + + + + ECG 12 lead (08/04/2016 6:42 PM PDT) + + + + + + | Component | Value | Ref Range | Performed | Pathologist | | | | | At | Signature | + + + + + + | VENTRICULAR | 63 | BPM | [facility] | | | RATE EKG | | | | | + + + + + + | ATRIAL RATE | 63 | BPM | [facility] | | + + + + + + | P-R | 164 | ms | [facility] | | | INTERVAL | | | | | + + + + + + | QRS | 98 | ms | [facility] | | | DURATION | | | | | + + + + + + | Q-T | 514 | ms | [facility] | | | INTERVAL | | | | | + + + + + + | Q-T | 525 | ms | [facility] | | | INTERVAL | | | | | | (CORRECTED) | | | | | + + + + + + | P WAVE AXIS | 71 | degrees | [facility] | | + + + + + + | QRS AXIS | 72 | degrees | [facility] | | + + + + + + | T AXIS | 91 | degrees | [facility] | | + + + + + + | INTERPRETAT | Normal sinus | | [facility] | | | ION TEXT | rhythmPossible Left | | | | | | atrial enlargementLeft | | | | | | ventricular | | | | | | hypertrophyST and T wave | | | | | | abnormalities which may | | | | | | be secondary to LVH | | | | | | and/or ischemia or | | | | | | evolution of recent | | | | | | ischemic eventProlonged | | | | | | QTU-waves are present: | | | | | | consider electrolyte | | | | | | disturbanceAbnormal | | | | | | ECGNo previous ECGs | | | | | | availableReconfirmed by | | | | | | JAMMIE ALONSO MD ([id number]) | | | | | | on 08/05/2016 8:02:16 PM | | | | + + + + + + + + | Specimen | + + | | + + + + + | Narrative | Performed At | + + + | | | + + + + +---------+ + + | Performing | Address | City/State/Zipcode | Phone Number | | Organization | | | | + +---------+ + + | [facility] | | | | + +---------+ + + Lipase (08/04/2016 6:27 PM PDT) + +-------+ + + + | Component | Value | Ref Range | Performed | Pathologist | | | | | At | Signature | + +-------+ + + + | Lipase | 22 | 0 - 60 U/L | [facility] | | | | | | [facility] | | | | | | MEDICAL | | | | | | CENTER - | | | | | | LABORATORY | | + +-------+ + + + + + | Specimen | + + | Blood | + + + + + + + | Performing | Address | City/State/Zipcode | Phone Number | | Organization | | | | + + + + + | [facility] | [address] | [place] | [phone] | | [facility] | | [address] | | | - LABORATORY | | | | + + + + + PTT (08/04/2016 6:27 PM PDT) + + + + + + | Component | Value | Ref Range | Performed | Pathologist | | | | | At | Signature | + + + + + + | aPTT | 119 ()Comment: | 22 - 36 seconds | [facility] | | | | Critical Result called | | [address] | | | | to and read back by | | MEDICAL | | | | Digna Santizo RN on | | CENTER - | | | | 08/04/2016 at 19:16 by | | LABORATORY | | | | Anu Morfin. | | | | + + + + + + + + | Specimen | + + | Blood | + + + + + + + | Performing | Address | City/State/Zipcode | Phone Number | | Organization | | | | + + + + + | [facility] | [address] | [place] | [phone] | | [facility] | | [address] | | | - LABORATORY | | | | + + + + + Troponin I (08/04/2016 6:27 PM PDT) + + + + + + | Component | Value | Ref Range | Performed | Pathologist | | | | | At | Signature | + + + + + + | Troponin I | 0.12 (H)Comment: | <0.06 ng/mL | [facility] | | | | Reference | | [facility] | | | | Ranges:0.00-0.06 = | | MEDICAL | | | | NORMAL>0.06 = | | CENTER - | | | | SUSPICIOUS FOR | | LABORATORY | | | | MYOCARDIAL DAMAGE NOTE: | | | | | | Values greater than 0.50 | | | | | | ng/mL have been shown | | | | | | to be strongly | | | | | | associated with acute | | | | | | myocardial infarction. | | | | | | The [employer] | | | | | | Cardiology (ACC) | | | | | | recommends a decision | | | | | | limit of 0.06 ng/mL for | | | | | | this assay. Results | | | | | | greater than 0.06 can | | | | | | reflect a pre-infarct | | | | | | acute coronary syndrome, | | | | | | but can also reflect | | | | | | myocardial necrosis or | | | | | | injury that is not due | | | | | | to coronary artery | | | | | | disease. Some of these | | | | | | causes are sepsis, | | | | | | hypocolemia, atrial | | | | | | fibrillation, heart | | | | | | failure, pulmonary | | | | | | embolism, myocarditis, | | | | | | myocardial contusion, | | | | | | and renal failure. The | | | | | | diagnosis of myocardial | | | | | | infarction should be | | | | | | based on a combination | | | | | | of the patient's | | | | | | clinical presentation | | | | | | and the clinical | | | | | | laboratory test results | | | | | | (especially serial | | | | | | troponin levels). | | | | + + + + + + + + | Specimen | + + | Blood | + + + + + + + | Performing | Address | City/State/Zipcode | Phone Number | | Organization | | | | + + + + + | [facility] | [address] | [place] | [phone] | | [facility] | | [address] | | | - LABORATORY | | | | + + + + + Protime INR (08/04/2016 6:27 PM PDT) + + + + + + | Component | Value | Ref Range | Performed | Pathologist | | | | | At | Signature | + + + + + + | Prothrombin | 12.2 | 11.3 - 13.9 | [facility] | | | Time | | seconds | [facility] | | | | | | MEDICAL | | | | | | CENTER - | | | | | | LABORATORY | | + + + + + + | INR | 0.89 (L)Comment: Usual | 0.90 - 1.10 | [facility] | | | | Oral Anticoagulation | | [facility] | | | | Range: 2.0 - | | MEDICAL | | | | 3.0High Level Oral | | CENTER - | | | | Anticoagulation Range: | | LABORATORY | | | | 2.5 - 3.5 | | | | + + + + + + + + | Specimen | + + | Blood | + + + + + + + | Performing | Address | City/State/Zipcode | Phone Number | | Organization | | | | + + + + + | [facility] | [address] | [place] | [phone] | | [facility] | | [address] | | | - LABORATORY | | | | + + + + + Magnesium (08/04/2016 6:27 PM PDT) + +---------+ + + + | Component | Value | Ref Range | Performed | Pathologist | | | | | At | Signature | + +---------+ + + + | Magnesium | 1.7 (L) | 1.8 - 2.5 mg/dL | [facility] | | | | | | [facility] | | | | | | MEDICAL | | | | | | CENTER - | | | | | | LABORATORY | | + +---------+ + + + + + | Specimen | + + | Blood | + + + + + + + | Performing | Address | City/State/Zipcode | Phone Number | | Organization | | | | + + + + + | [facility] | [address] | [place] | [phone] | | [facility] | | [address] | | | - LABORATORY | | | | + + + + + CBC with Differential (08/04/2016 6:27 PM PDT) + + + + + + | Component | Value | Ref Range | Performed | Pathologist | | | | | At | Signature | + + + + + + | WBC | 11.3 (H) | 4.0 - 11.0 K/uL | [facility] | | | | | | [facility] | | | | | | MEDICAL | | | | | | CENTER - | | | | | | LABORATORY | | + + + + + + | RBC | 4.55 | 3.70 - 5.20 | [facility] | | | | | M/uL | [address] | | | | | | MEDICAL | | | | | | CENTER - | | | | | | LABORATORY | | + + + + + + | Hemoglobin | 15.1 | 11.5 - 16.0 | [facility] | | | | | g/dL | [address] | | | | | | MEDICAL | | | | | | CENTER - | | | | | | LABORATORY | | + + + + + + | Hematocrit | 45.5 | 34.0 - 47.0 % | [facility] | | | | | | [facility] | | | | | | MEDICAL | | | | | | CENTER - | | | | | | LABORATORY | | + + + + + + | MCV | 99.9 | 83.0 - 101.0 fL | [facility] | | | | | | [facility] [address] | | | | | | MEDICAL | | | | | | CENTER - | | | | | | LABORATORY | | + + + + + + | MCH | 33.1 | 28.0 - 35.0 pg | [facility] | | | | | | [facility] | | | | | | MEDICAL | | | | | | CENTER - | | | | | | LABORATORY | | + + + + + + | MCHC | 33.2 | 32.0 - 36.0 | [facility] | | | | | g/dL | [facility] | | | | | | MEDICAL | | | | | | CENTER - | | | | | | LABORATORY | | + + + + + + | RDW-CV | 13.0 | <15.0 % | [facility] | | | | | | [facility] | | | | | | MEDICAL | | | | | | CENTER - | | | | | | LABORATORY | | + + + + + + | Platelet | 403 | 140 - 440 K/uL | [facility] | | | Count | | | [facility] | | | | | | MEDICAL | | | | | | CENTER - | | | | | | LABORATORY | | + + + + + + | MPV | 7.4 | fL | [facility] | | | | | | [facility] | | | | | | MEDICAL | | | | | | CENTER - | | | | | | LABORATORY | | + + + + + + | % | 81.8 | 45.0 - 82.0 % | [facility] | | | Neutrophils | | | [facility] | | | | | | MEDICAL | | | | | | CENTER - | | | | | | LABORATORY | | + + + + + + | % | 11.0 (L) | 20.0 - 45.0 % | [facility] | | | Lymphocytes | | | [facility] | | | | | | MEDICAL | | | | | | CENTER - | | | | | | LABORATORY | | + + + + + + | % Monocytes | 6.5 | 4.0 - 12.0 % | [facility] | | | | | | [facility] | | | | | | MEDICAL | | | | | | CENTER - | | | | | | LABORATORY | | + + + + + + | % | 0.2 | 0.0 - 5.0 % | [facility] | | | Eosinophils | | | [facility] | | | | | | MEDICAL | | | | | | CENTER - | | | | | | LABORATORY | | + + + + + + | % Basophils | 0.5 | 0.0 - 1.0 % | [facility] | | | | | | [facility] | | | | | | MEDICAL | | | | | | CENTER - | | | | | | LABORATORY | | + + + + + + | Absolute | 9.20 (H) | 1.80 - 8.50 | [facility] | | | Neutrophils | | K/uL | [facility] | | | | | | MEDICAL | | | | | | CENTER - | | | | | | LABORATORY | | + + + + + + | Absolute | 1.20 | 0.60 - 3.20 | [facility] | | | Lymphocytes | | K/uL | [address] | | | | | | MEDICAL | | | | | | CENTER - | | | | | | LABORATORY | | + + + + + + | Absolute | 0.70 | 0.00 - 1.00 | [facility] | | | Monocytes | | K/uL | [facility] | | | | | | MEDICAL | | | | | | CENTER - | | | | | | LABORATORY | | + + + + + + | Absolute | 0.00 | 0.00 - 0.40 | [facility] | | | Eosinophils | | K/uL | [facility] | | | | | | MEDICAL | | | | | | CENTER - | | | | | | LABORATORY | | + + + + + + | Absolute | 0.10 | 0.00 - 0.10 | [facility] | | | Basophils | | K/uL | [facility] | | | | | | MEDICAL | | | | | | CENTER - | | | | | | LABORATORY | | + + + + + + + + | Specimen | + + | Blood | + + + + + + + | Performing | Address | City/State/Zipcode | Phone Number | | Organization | | | | + + + + + | [facility] | [address] | [place] | [phone] | | [facility] | | [address] | | | - LABORATORY | | | | + + + + + Basic Metabolic Panel (08/04/2016 6:27 PM PDT) + + + + + + | Component | Value | Ref Range | Performed | Pathologist | | | | | At | Signature | + + + + + + | Na | 134 (L) | 136 - 149 | [facility] | | | | | mmol/L | [facility] | | | | | | MEDICAL | | | | | | CENTER - | | | | | | LABORATORY | | + + + + + + | K | 2.8 (L) | 3.5 - 5.1 | [facility] | | | | | mmol/L | [facility] | | | | | | MEDICAL | | | | | | CENTER - | | | | | | LABORATORY | | + + + + + + | Cl | 95 (L) | 98 - 109 mmol/L | [facility] | | | | | | [facility] | | | | | | MEDICAL | | | | | | CENTER - | | | | | | LABORATORY | | + + + + + + | CO2 | 24 | 24 - 31 mmol/L | [facility] | | | | | | [facility] | | | | | | MEDICAL | | | | | | CENTER - | | | | | | LABORATORY | | + + + + + + | Anion Gap | 15 | 3 - 16 mmol/L | [facility] | | | | | | [facility] | | | | | | MEDICAL | | | | | | CENTER - | | | | | | LABORATORY | | + + + + + + | Glucose | 151 (H) | 70 - 109 mg/dL | [facility] | | | | | | [facility] | | | | | | MEDICAL | | | | | | CENTER - | | | | | | LABORATORY | | + + + + + + | BUN | 13 | 7 - 18 mg/dL | [facility] | | | | | | [facility] | | | | | | MEDICAL | | | | | | CENTER - | | | | | | LABORATORY | | + + + + + + | Creatinine | 0.60 | 0.60 - 1.30 | [facility] | | | | | mg/dL | [facility] | | | | | | MEDICAL | | | | | | CENTER - | | | | | | LABORATORY | | + + + + + + | eGFR if not | >60Comment: GLOMERULAR | >=60 | [facility] | | | | FILTRATION | mL/min/1.73m2 | [facility] | | | CYMRO | RATE,ESTIMATED | | MEDICAL | | | | mL/min/1.14q9Xpvz than | | CENTER - | | | | 60 Chronic kidney | | LABORATORY | | | | disease,if found over a | | | | | | 3-month period.Less than | | | | | | 15 Kidney failureFor | | | | | | | | | | | | Americans,multiply the | | | | | | calculated GFR by 1.21. | | | | | | | | | | + + + + + + | Calcium | 8.8 | 8.3 - 10.5 | [facility] | | | | | mg/dL | [facility] | | | | | | MEDICAL | | | | | | CENTER - | | | | | | LABORATORY | | + + + + + + | BUN/Creatin | 21.7 | | [facility] | | | ine Ratio | | | [facility] | | | | | | MEDICAL | | | | | | CENTER - | | | | | | LABORATORY | | + + + + + + + + | Specimen | + + | Blood | + + + + + + + | Performing | Address | City/State/Zipcode | Phone Number | | Organization | | | | + + + + + | [facility] | [address] | [place] | [phone] | | [facility] | | [address] | | | - LABORATORY | | | | + + + + + Culture, MRSA (08/04/2016 6:23 PM PDT) + + + + + + | Component | Value | Ref Range | Performed | Pathologist | | | | | At | Signature | + + + + + + | Culture | Negative for MRSA by | | [facility] | | | | chromogenic agar method | | [facility] | | | | | | MEDICAL | | | | | | CENTER - | | | | | | LABORATORY | | + + + + + + + + | Specimen | + + | Respiratory - Both | | anterior nares (body | | structure) | + + + + + + + | Performing | Address | City/State/Zipcode | Phone Number | | Organization | | | | + + + + + | [facility] | [address] | [place] | [phone] | | [facility] | | [address] | | | - LABORATORY | | | | + + + + + LABS - EXTERNAL SCAN (08/04/2016 12:00 AM PDT) + + + | Narrative | Performed At | + + + | Ordered by an | | | unspecified provider. | | + + + IMAGING REPORT - EXTERNAL SCAN (08/04/2016 12:00 AM PDT) + + + | Narrative | Performed At | + + + | Ordered by an | | | unspecified provider. | | + + + ECG - EXTERNAL SCAN (08/04/2016 12:00 AM PDT) + + + | Narrative | Performed At | + + + | Ordered by an | | | unspecified provider. 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, | | unspecified | + + | Nicotine dependence Tobacco use disorder | + + documented in this encounter Administered Medications + +--------+ +--------+------+------+ | Medication Order | MAR | Action | Dose | Rate | Site | | | Action | Date | | | | + +--------+ +--------+------+------+ | acetaminophen (TYLENOL) tablet | Given | 08/07/19 | 650 mg | | | | 650 mg 650 mg, Oral, EVERY 6 | | 17 6:10 | | | | | HOURS PRN, Pain, Starting Sun | | PM PDT | | | | | 08/05/16 at 0737 | | | | | | + +--------+ +--------+------+------+ +-------+ +--------+---+---+ | Given | 08/07/19 | 650 mg | | | | | 17 2:50 | | | | | | PM PDT | | | | +-------+ +--------+---+---+ | Given | 08/06/19 | 650 mg | | | | | 17 1:26 | | | | | | PM PDT | | | | +-------+ +--------+---+---+ +---+---+ | | | +---+---+ + +-------+ +-------+---+---+ | albuterol-ipratropium (DUONEB) | Given | 08/06/19 | 3 mLs | | | | 2.5-0.5 mg/3 mL nebulizer | | 17 3:48 | | | | | solution 3 mL 3 mL, | | PM PDT | | | | | Nebulization, RT Q6H, First dose | | | | | | | on 08/05/16 at 0900 | | | | | | + +-------+ +-------+---+---+ +-------+ +-------+---+---+ | Given | 08/06/19 | 3 mLs | | | | | 17 7:54 | | | | | | AM PDT | | | | +-------+ +-------+---+---+ +---+---+ | | | +---+---+ + +-------+ +-------+---+---+ | albuterol-ipratropium (DUONEB) | Given | 08/08/19 | 3 mLs | | | | 2.5-0.5 mg/3 mL nebulizer | | 17 11:36 | | | | | solution 3 mL 3 mL, | | AM PDT | | | | | Nebulization, 4 TIMES DAILY, | | | | | | | First dose (after last | | | | | | | modification) on 08/05/16 at | | | | | | | 2115 | | | | | | + +-------+ +-------+---+---+ +-------+ +-------+---+---+ | Given | 08/08/19 | 3 mLs | | | | | 17 8:13 | | | | | | AM PDT | | | | +-------+ +-------+---+---+ | Given | 08/07/19 | 3 mLs | | | | | 17 3:55 | | | | | | PM PDT | | | | +-------+ +-------+---+---+ +---+---+ | | | +---+---+ + +-------+ +--------+---+---+ | budesonide (PULMICORT) 0.5 mg/2 | Given | 08/08/19 | 0.5 mg | | | | mL nebulizer solution 0.5 mg | | 17 8:13 | | | | | 0.5 mg, Nebulization, 2 TIMES | | AM PDT | | | | | DAILY, First dose on 08/04/16 | | | | | | | at 2100 | | | | | | + +-------+ +--------+---+---+ +-------+ +--------+---+---+ | Given | 08/07/19 | 0.5 mg | | | | | 17 7:27 | | | | | | AM PDT | | | | +-------+ +--------+---+---+ | Given | 08/06/19 | 0.5 mg | | | | | 17 7:51 | | | | | | AM PDT | | | | +-------+ +--------+---+---+ +---+---+ | | | +---+---+ + +-------+ +---------+---+---+ | carvedilol (COREG) tablet 12.5 | Given | 08/07/19 | 12.5 mg | | | | mg 12.5 mg, Oral, 2 TIMES DAILY | | 17 9:43 | | | | | WITH BREAKFAST & DINNER, First | | PM PDT | | | | | dose on 08/06/16 at 2115 | | | | | | + +-------+ +---------+---+---+ +---+---+ | | | +---+---+ + +-------+ +---------+---+---+ | carvedilol (COREG) tablet 12.5 | Given | 08/08/19 | 12.5 mg | | | | mg 12.5 mg, Oral, ONCE, Tue | | 17 12:38 | | | | | 08/07/16 at 0045, For 1 dose | | AM PDT | | | | + +-------+ +---------+---+---+ +---+---+ | | | +---+---+ + +-------+ +-------+---+---+ | carvedilol (COREG) tablet 25 mg | Given | 08/08/19 | 25 mg | | | | 25 mg, Oral, 2 TIMES DAILY WITH | | 17 8:04 | | | | | BREAKFAST & DINNER, First dose | | AM PDT | | | | | (after last modification) on Sat | | | | | | | 08/07/16 at 0800 | | | | | | + +-------+ +-------+---+---+ +---+---+ | | | +---+---+ + +-------+ +-------+---+---+ | escitalopram (LEXAPRO) tablet | Given | 08/08/19 | 20 mg | | | | 20 mg 20 mg, Oral, DAILY, First | | 17 8:04 | | | | | dose on 08/04/16 at 2000 | | AM PDT | | | | + +-------+ +-------+---+---+ +-------+ +-------+---+---+ | Given | 08/07/19 | 20 mg | | | | | 17 8:09 | | | | | | AM PDT | | | | +-------+ +-------+---+---+ | Given | 08/06/19 | 20 mg | | | | | 17 8:09 | | | | | | AM PDT | | | | +-------+ +-------+---+---+ +---+---+ | | | +---+---+ + +-------+ +-------+---+---+ | furosemide (LASIX) tablet 40 mg | Given | 08/06/19 | 40 mg | | | | 40 mg, Oral, DAILY, First dose | | 17 8:16 | | | | | on 08/05/16 at 0900 | | AM PDT | | | | + +-------+ +-------+---+---+ +---+---+ | | | +---+---+ + +-------+ +--------+---+---+ | gabapentin (NEURONTIN) capsule | Given | 08/08/19 | 600 mg | | | | 600 mg 600 mg, Oral, 3 TIMES | | 17 8:04 | | | | | DAILY, First dose (after last | | AM PDT | | | | | reorder) on 08/06/16 at 1815 | | | | | | + +-------+ +--------+---+---+ +-------+ +--------+---+---+ | Given | 08/07/19 | 600 mg | | | | | 17 6:10 | | | | | | PM PDT | | | | +-------+ +--------+---+---+ +---+---+ | | | +---+---+ + +-------+ +--------+---+ + | heparin 5,000 units/mL | Given | 08/08/19 | 5,000 | | Abdomen- | | injection 5,000 Units 5,000 | | 17 8:05 | Units | | LLQ | | Units, Subcutaneous, EVERY 12 | | AM PDT | | | | | HOURS (2 times per day), First | | | | | | | dose on 08/05/16 at 1000 | | | | | | + +-------+ +--------+---+ + +-------+ +--------+---+ + | Given | 08/07/19 | 5,000 | | Abdomen- | | | 17 8:17 | Units | | LLQ | | | PM PDT | | | | +-------+ +--------+---+ + | Given | 08/07/19 | 5,000 | | Abdomen- | | | 17 8:08 | Units | | LLQ | | | AM PDT | | | | +-------+ +--------+---+ + +---+---+ | | | +---+---+ + + + + + +---+ | heparin in half-normal saline | Restarte | 08/06/19 | 900 | 18 mL/hr | | | 50 units/mL infusion 0-3,000 | d | 17 8:12 | Units/hr | | | | Units/hr (0-60 mL/hr), at 0-60 | | AM PDT | | | | | mL/hr, Intravenous, TITRATED, | | | | | | | Starting 08/04/16 at 1830, Use | | | | | | | actual body weight to calculate | | | | | | | dose. Round infusion dose to | | | | | | | nearest 50 units/hr. Round bolus | | | | | | | dose to nearest 100 units. | | | | | | | CARDIAC DOSE HEPARIN PROTOCOL | | | | | | | STARTING heparin infusion dose | | | | | | | 750 units/hr (12 units/kg/hr, | | | | | | | initial rate max 1,000 units/hr). | | | | | | | Draw APTT from an IV site other | | | | | | | than heparin IV site 6 hours | | | | | | | after starting a heparin | | | | | | | infusion. PTT Nomogram for | | | | | | | ADJUSTING heparin: APTT < 46 | | | | | | | seconds: Bolus 4,000 units & | | | | | | | increase rate by 200 units/hr | | | | | | | Repeat APTT 6 hr after change. | | | | | | | APTT 46-60 seconds: Bolus 2,000 | | | | | | | units & increase rate by 100 | | | | | | | units/hr Repeat APTT 6 hr after | | | | | | | change. APTT 61-98 seconds: | | | | | | | No bolus or rate change. Repeat | | | | | | | in AM. APTT 99-126 seconds: | | | | | | | Decrease rate by 100 units/hr | | | | | | | Repeat APTT 6 hr after change. | | | | | | | APTT 127-149 seconds: Stop | | | | | | | infusion 60 minutes then recheck | | | | | | | APTT. When APTT is 126 or less, | | | | | | | restart heparin at decreased | | | | | | | rate by 200 units/hr. Repeat | | | | | | | APTT 6 hr after change. APTT | | | | | | | 150-200 seconds: Stop infusion | | | | | | | 90 minutes then recheck APTT. | | | | | | | Repeat APTT every 90 minutes | | | | | | | until in goal range. When APTT | | | | | | | is in goal range, restart | | | | | | | heparin at decreased rate by 200 | | | | | | | units/hr. If two consecutive | | | | | | | APTT values are > 150 seconds, | | | | | | | contact prescriber. APTT >200 | | | | | | | seconds: Contact prescriber , | | | | | | + + + + + +---+ + + + + +---+ | Rate/Dose Verify | 08/06/19 | 900 | 18 mL/hr | | | | 17 1:09 | Units/hr | | | | | AM PDT | | | | + + + + +---+ | Rate/Dose Change | 08/05/19 | 900 | 18 mL/hr | | | | 17 7:41 | Units/hr | | | | | PM PDT | | | | + + + + +---+ + +---+ | | | + +---+ | HYDROmorphone (DILAUDID) 1 | | | mg/mL injection Starting Sat | | | 08/04/16 at 2326, For 1 dose, | | | DELROY [place]: adam | | | override, | | + +---+ | | | + +---+ + +-------+ +--------+---+---+ | HYDROmorphone (DILAUDID) | Given | 08/08/19 | 0.5 mg | | | | injection 0.25-0.5 mg 0.25-0.5 | | 17 10:52 | | | | | mg, Intravenous, EVERY 3 HOURS | | AM PDT | | | | | PRN, Moderate Pain, Pain, | | | | | | | Starting 08/04/16 at 2315 | | | | | | + +-------+ +--------+---+---+ +-------+ +---------+---+---+ | Given | 08/08/19 | 0.25 mg | | | | | 17 6:57 | | | | | | AM PDT | | | | +-------+ +---------+---+---+ | Given | 08/08/19 | 0.5 mg | | | | | 17 1:35 | | | | | | AM PDT | | | | +-------+ +---------+---+---+ +---+---+ | | | +---+---+ + +-------+ +--------+---+---+ | iohexol (OMNIPAQUE 350) 350 | Given | 08/05/19 | 85 mLs | | | | mg/mL injection 85 mL 85 mL, | | 17 8:22 | | | | | Intravenous, ONCE PRN, Other, | | PM PDT | | | | | Starting 08/04/16 at 2021, For | | | | | | | 1 dose, Cat Scanner | | | | | | + +-------+ +--------+---+---+ +---+---+ | | | +---+---+ + +-------+ +-------+---+---+ | lisinopril (PRINIVIL, ZESTRIL) | Given | 08/05/19 | 20 mg | | | | tablet 20 mg 20 mg, Oral, ONCE, | | 17 8:00 | | | | | 08/04/16 at 1915, For 1 dose | | PM PDT | | | | + +-------+ +-------+---+---+ +---+---+ | | | +---+---+ + +-------+ +-------+---+---+ | lisinopril (PRINIVIL, ZESTRIL) | Given | 08/06/19 | 20 mg | | | | tablet 20 mg 20 mg, Oral, DAILY, | | 17 8:09 | | | | | First dose on 08/04/16 at | | AM PDT | | | | | 2000 | | | | | | + +-------+ +-------+---+---+ +---+---+ | | | +---+---+ + +-------+ +-------+---+---+ | lisinopril (PRINIVIL,ZESTRIL) | Given | 08/08/19 | 40 mg | | | | tablet 40 mg 40 mg, Oral, DAILY, | | 17 8:05 | | | | | First dose (after last | | AM PDT | | | | | modification) on 08/06/16 at | | | | | | | 0745 | | | | | | + +-------+ +-------+---+---+ +-------+ +-------+---+---+ | Given | 08/07/19 | 40 mg | | | | | 17 7:34 | | | | | | AM PDT | | | | +-------+ +-------+---+---+ +---+---+ | | | +---+---+ + +-------+ +-------+---+---+ | loratadine (CLARITIN) tablet 10 | Given | 08/08/19 | 10 mg | | | | mg 10 mg, Oral, DAILY, First | | 17 8:05 | | | | | dose on 08/05/16 at 1000 | | AM PDT | | | | + +-------+ +-------+---+---+ +-------+ +-------+---+---+ | Given | 08/07/19 | 10 mg | | | | | 17 8:09 | | | | | | AM PDT | | | | +-------+ +-------+---+---+ | Given | 08/06/19 | 10 mg | | | | | 17 10:07 | | | | | | AM PDT | | | | +-------+ +-------+---+---+ +---+---+ | | | +---+---+ + +-------+ +------+---+---+ | LORazepam (ATIVAN) injection 1 | Given | 08/06/19 | 1 mg | | | | mg 1 mg, Intravenous, ONCE, Sun | | 17 1:00 | | | | | 08/05/16 at 1315, For 1 dose | | PM PDT | | | | + +-------+ +------+---+---+ +---+---+ | | | +---+---+ + +-------+ +------+---+---+ | LORazepam (ATIVAN) injection 1 | Given | 08/07/19 | 1 mg | | | | mg 1 mg, Intravenous, EVERY 4 | | 17 3:29 | | | | | HOURS PRN, nausea, Starting Sun | | PM PDT | | | | | 08/05/16 at 1609 | | | | | | + +-------+ +------+---+---+ +-------+ +------+---+---+ | Given | 08/07/19 | 1 mg | | | | | 17 8:26 | | | | | | AM PDT | | | | +-------+ +------+---+---+ | Given | 08/07/19 | 1 mg | | | | | 17 12:58 | | | | | | AM PDT | | | | +-------+ +------+---+---+ +---+---+ | | | +---+---+ + +---------+ +-----+ +---+ | magnesium sulfate 2 g/50 mL | New Bag | 08/06/19 | 4 g | 50 mL/hr | | | IVPB 4 g 4 g, Intravenous, | | 17 6:05 | | | | | Administer over 120 Minutes, | | PM PDT | | | | | ONCE, 08/05/16 at 1800, For 1 | | | | | | | dose, Infuse over 2 hours., | | | | | | + +---------+ +-----+ +---+ +---+---+ | | | +---+---+ + +-------+ +------+---+---+ | metoclopramide (REGLAN) 5 mg/mL | Given | 08/08/19 | 5 mg | | | | injection 5 mg 5 mg, | | 17 8:01 | | | | | Intravenous, EVERY 6 HOURS PRN, | | AM PDT | | | | | Nausea, Vomiting, Starting Sat | | | | | | | 08/04/16 at 2316, Protect from | | | | | | | light., | | | | | | + +-------+ +------+---+---+ +-------+ +------+---+---+ | Given | 08/06/19 | 5 mg | | | | | 17 10:23 | | | | | | AM PDT | | | | +-------+ +------+---+---+ | Given | 08/05/19 | 5 mg | | | | | 17 11:22 | | | | | | PM PDT | | | | +-------+ +------+---+---+ + +---+ | | | + +---+ | metoclopramide (REGLAN) 5 mg/mL | | | injection Starting 08/04/16 | | | at 2325, For 1 dose, JANETT, | | | DELROY: adam leeside | | | Protect from light., | | + +---+ | | | + +---+ + +-------+ +------+---+---+ | morphine injection 2 mg 2 mg, | Given | 08/05/19 | 2 mg | | | | Intravenous, EVERY 3 HOURS PRN, | | 17 6:22 | | | | | Pain, Starting 08/04/16 at | | PM PDT | | | | | 1810 | | | | | | + +-------+ +------+---+---+ +---+---+ | | | +---+---+ + +-------+ +------+---+---+ | morphine injection 4 mg 4 mg, | Given | 08/07/19 | 4 mg | | | | Intravenous, EVERY 3 HOURS PRN, | | 17 5:46 | | | | | Pain, Starting 08/04/16 at | | AM PDT | | | | | 1954 | | | | | | + +-------+ +------+---+---+ +-------+ +------+---+---+ | Given | 08/07/19 | 4 mg | | | | | 17 12:59 | | | | | | AM PDT | | | | +-------+ +------+---+---+ | Given | 08/06/19 | 4 mg | | | | | 17 9:56 | | | | | | PM PDT | | | | +-------+ +------+---+---+ +---+---+ | | | +---+---+ + +---------+ +---------+---+ + | nicotine (NICODERM) 21 mg/24 hr | Patch | 08/08/19 | 1 patch | | Arm-Rigyoly | | 1 patch 1 patch, Transdermal, | Applied | 17 8:09 | | | t Upper | | DAILY, First dose on 08/05/16 | | AM PDT | | | | | at 0900 | | | | | | + +---------+ +---------+---+ + + + +---------+---+ + | Patch Applied | 08/07/19 | 1 patch | | Deltoid- | | | 17 8:09 | | | Left | | | AM PDT | | | | + + +---------+---+ + | Patch Applied | 08/06/19 | 1 patch | | Deltoid- | | | 17 8:07 | | | Right | | | AM PDT | | | | + + +---------+---+ + + +---+ | | | + +---+ | nicotine polacrilex (COMMIT) | | | lozenge 2 mg 2 mg, Oral, PRN, | | | Nicotine Craving, Starting Sun | | | 08/05/16 at 0516 | | + +---+ | | | + +---+ + +-------+ +--------+---+---+ | NIFEdipine (PROCARDIA XL) ER | Given | 08/08/19 | 120 mg | | | | tablet 120 mg 120 mg, Oral, | | 17 8:04 | | | | | DAILY, First dose (after last | | AM PDT | | | | | modification) on 08/06/16 at | | | | | | | 0745, Do not cut or crush., | | | | | | + +-------+ +--------+---+---+ +-------+ +--------+---+---+ | Given | 08/07/19 | 120 mg | | | | | 17 7:34 | | | | | | AM PDT | | | | +-------+ +--------+---+---+ +---+---+ | | | +---+---+ + +-------+ +-------+---+---+ | NIFEdipine (PROCARDIA XL) ER | Given | 08/06/19 | 30 mg | | | | tablet 30 mg 30 mg, Oral, DAILY, | | 17 8:09 | | | | | First dose on Sat08/05/16 at | | AM PDT | | | | | 0900, Do not cut or crush., | | | | | | + +-------+ +-------+---+---+ +---+---+ | | | +---+---+ + +-------+ +-------+---+---+ | NIFEdipine (PROCARDIA XL) ER | Given | 08/06/19 | 30 mg | | | | tablet 30 mg 30 mg, Oral, ONCE, | | 17 2:34 | | | | | 08/05/16 at 1445, For 1 dose, | | PM PDT | | | | | Do not cut or crush., | | | | | | + +-------+ +-------+---+---+ + +---+ | | | + +---+ | nitroglycerin (NITROSTAT) SL | | | tablet 0.4 mg 0.4 mg, | | | Sublingual, EVERY 5 MIN PRN, | | | Chest pain, Starting 08/04/16 | | | at 1810, Maximum of 3 doses in 15 | | | minutes., | | + +---+ | | | + +---+ + + + +---------+---------+---+ | nitroglycerin in dextrose 100 | Rate/Dos | 08/06/19 | 5 | 3 mL/hr | | | mcg/mL infusion 5-250 mcg/min | e Change | 17 8:30 | mcg/min | | | | (3-150 mL/hr), at 3-150 mL/hr, | | AM PDT | | | | | Intravenous, TITRATED, Starting | | | | | | | 08/04/16 at 1845, Initial | | | | | | | dose: 5 mcg/min, Goal: SBP less | | | | | | | than 160 | | | | | | + + + +---------+---------+---+ + + +---------+ +---+ | Rate/Dose Change | 08/06/19 | 10 | 6 mL/hr | | | | 17 8:05 | mcg/min | | | | | AM PDT | | | | + + +---------+ +---+ | Rate/Dose Change | 08/06/19 | 20 | 12 mL/hr | | | | 17 6:30 | mcg/min | | | | | AM PDT | | | | + + +---------+ +---+ +---+---+ | | | +---+---+ + + + +---------+-------+---+ | nitroglycerin in dextrose 100 | Rate/Dos | 08/07/19 | 8 | 4.8 | | | mcg/mL infusion 5-250 mcg/min | e Change | 17 9:05 | mcg/min | mL/hr | | | (3-150 mL/hr), at 3-150 mL/hr, | | AM PDT | | | | | Intravenous, TITRATED, Starting | | | | | | | [place] 08/05/16 at 1130, Initial | | | | | | | dose: 5 mcg/min, Goal: SBP less | | | | | | | than 160 | | | | | | + + + +---------+-------+---+ + + +---------+ +---+ | Rate/Dose Change | 08/07/19 | 16 | 9.6 | | | | 17 8:49 | mcg/min | mL/hr | | | | AM PDT | | | | + + +---------+ +---+ | Rate/Dose Change | 08/07/19 | 35 | 21 mL/hr | | | | 17 8:08 | mcg/min | | | | | AM PDT | | | | + + +---------+ +---+ +---+---+ | | | +---+---+ + +-------+ +------+---+---+ | ondansetron (ZOFRAN) injection | Given | 08/08/19 | 4 mg | | | | 4 mg 4 mg, Intravenous, EVERY 6 | | 17 4:38 | | | | | HOURS PRN, Nausea, Starting Sat | | AM PDT | | | | | 08/04/16 at 1806, First line | | | | | | | agent, | | | | | | + +-------+ +------+---+---+ +-------+ +------+---+---+ | Given | 08/05/19 | 4 mg | | | | | 17 6:22 | | | | | | PM PDT | | | | +-------+ +------+---+---+ +---+---+ | | | +---+---+ + +-------+ +-------+---+---+ | pantoprazole (PROTONIX) | Given | 08/08/19 | 40 mg | | | | injection 40 mg 40 mg, | | 17 8:01 | | | | | Intravenous, DAILY, First dose on | | AM PDT | | | | | 08/04/16 at 1915, If | | | | | | | reconstituting, mix each 40 mg | | | | | | | vial with 10 mL NS to make 4 | | | | | | | mg/mL., | | | | | | + +-------+ +-------+---+---+ + + +-------+---+---+ | Given by Other | 08/07/19 | 40 mg | | | | | 17 8:08 | | | | | | AM PDT | | | | + + +-------+---+---+ | Given | 08/06/19 | 40 mg | | | | | 17 8:07 | | | | | | AM PDT | | | | + + +-------+---+---+ +---+---+ | | | +---+---+ + +-------+ +--------+---+---+ | potassium chloride (K-DUR) ER | Given | 08/07/19 | 60 mEq | | | | tablet 40-60 mEq 40-60 mEq, | | 17 6:10 | | | | | Oral, PRN, Per protocol, Starting | | PM PDT | | | | | 08/04/16 at 1804, ICU Use | | | | | | | Only Protocol NOT recommended | | | | | | | if Scr > 1.8, dialysis patients | | | | | | | or CrCl < 50 mL/min [K+] =3.6 - | | | | | | | 4 mEql/L Give 40 mEq KCl PO x 1 | | | | | | | dose [K+] =3 - 3.5 mEql/L | | | | | | | Give 60 mEq KCl PO x 1 dose [K+] | | | | | | | < 3.0 mEql/L Give 40 mEq KCl | | | | | | | Q2H PO x 2 doses for total of | | | | | | | 80 meq. * Obtain K+ level 4 | | | | | | | hours after replacement is | | | | | | | done. If K+ still < 3.6 mEq/L, | | | | | | | repeat replacement as | | | | | | | indicated per protocol. Give | | | | | | | either tablet, liquid, or IV but | | | | | | | never more than one form., | | | | | | + +-------+ +--------+---+---+ +-------+ +--------+---+---+ | Given | 08/07/19 | 60 mEq | | | | | 17 5:20 | | | | | | AM PDT | | | | +-------+ +--------+---+---+ | Given | 08/06/19 | 60 mEq | | | | | 17 5:39 | | | | | | AM PDT | | | | +-------+ +--------+---+---+ + +---+ | | | + +---+ | potassium chloride 10 mEq in | | | sterile water 100 mL IVPB 10 | | | mEq, Intravenous, Administer over | | | 1 Hours, PRN, Per protocol, | | | Starting 08/04/16 at 1804, | | | ICU Use Only Protocol NOT | | | recommended if Scr > 1.8, | | | dialysis patients or CrCl < 50 | | | mL/min [K+] =3.6 - 4 mEql/L | | | Give 10 mEq KCl Q1H IV x 4 doses | | | For a total of 40 mEq [K+] =3 | | | - 3.5 mEql/L Give 10 meq KCl | | | Q1H IV x 6 doses For a total | | | of 60 mEq [K+] < 3.0 mEql/L | | | Give 10 mEq KCl Q1H IV x 8 doses | | | For a total of 80 mEq. * | | | Obtain K+ level 2 hours after | | | replacement is done. If K+ | | | still < 3.6 mEq/L, repeat | | | replacement as indicated per | | | protocol. Give either tablet, | | | liquid, or IV but never more than | | | one form., | | + +---+ | | | + +---+ | potassium chloride 20 mEq/15 mL | | | liquid 40-60 mEq 40-60 mEq, | | | Feeding Tube, PRN, Per protocol, | | | Starting 08/04/16 at 1804, | | | ICU Use Only Protocol NOT | | | recommended if Scr > 1.8, | | | dialysis patients or CrCl < 50 | | | mL/min [K+] =3.6 - 4 mEql/L | | | Give 40 mEq KCl PO/FT x 1 dose | | | [K+] =3 - 3.5 mEql/L Give 60 | | | mEq KCl PO/FT x 1 dose [K+] < | | | 3.0 mEql/L Give 40 mEq KCl | | | Q2H PO/FT x 2 doses for total | | | of 80 meq. * Obtain K+ level 4 | | | hours after replacement is | | | done. If K+ still < 3.6 mEq/L, | | | repeat replacement as | | | indicated per protocol. Give | | | either tablet, liquid, or IV but | | | never more than one form., | | + +---+ | | | + +---+ + +---------+ +--------+-------+---+ | potassium chloride 40 mEq in | New Bag | 08/05/19 | 40 mEq | 130 | | | sodium chloride 0.45% 500 mL IVPB | | 17 8:39 | | mL/hr | | | 40 mEq, Intravenous, Administer | | PM PDT | | | | | over 4 Hours, ONCE, 08/04/16 | | | | | | | at 1930, For 1 dose | | | | | | + +---------+ +--------+-------+---+ +---+---+ | | | +---+---+ + +---------+ +--------+-------+---+ | potassium chloride 40 mEq in | New Bag | 08/06/19 | 40 mEq | 130 | | | sodium chloride 0.45% 500 mL IVPB | | 17 8:38 | | mL/hr | | | 40 mEq, Intravenous, Administer | | PM PDT | | | | | over 4 Hours, ONCE, [place] 08/05/16 | | | | | | | at 2000, For 1 dose | | | | | | + +---------+ +--------+-------+---+ +---+---+ | | | +---+---+ + +---------+ +---------+-------+---+ | promethazine (PHENERGAN) 12.5 | New Bag | 08/07/19 | 12.5 mg | 202 | | | mg in sodium chloride 0.9% 50 mL | | 17 6:00 | | mL/hr | | | IVPB 12.5 mg, Intravenous, | | AM PDT | | | | | Administer over 15 Minutes, EVERY | | | | | | | 6 HOURS PRN, Nausea, Vomiting, | | | | | | | Starting 08/04/16 at 1819 | | | | | | + +---------+ +---------+-------+---+ +---------+ +---------+-------+---+ | New Bag | 08/06/19 | 12.5 mg | 202 | | | | 17 9:26 | | mL/hr | | | | PM PDT | | | | +---------+ +---------+-------+---+ +---+---+ | | | +---+---+ + +---------+ +---+-------+---+ | sodium chloride 0.9% (NS) | New Bag | 08/05/19 | | 100 | | | infusion at 100 mL/hr, | | 17 6:32 | | mL/hr | | | Intravenous, CONTINUOUS, Starting | | PM PDT | | | | | 08/04/16 at 1830 | | | | | | + +---------+ +---+-------+---+ +---+---+ | | | +---+---+ documented in this encounter
--- OUTSIDE RECORDS SUMMARY | ~2019-01-07 | XMS | Encounter Summary ---
Demographics + + + | Address | [address] | | | [place] [address] | + + + | Home Phone | | + + + | Preferred Language | Unknown | + + + | Marital Status | Single | + + + | Yazidism Affiliation | Unknown | + + + | Race | Unknown | + + + | Ethnic Group | Unknown | + + + Author + + + | Author | [facility] | | | and [place] | + + + | Organization | [facility] | | | and [...] Team Providers + +------+ + | Care Industrial Services Worker Name | Role | Phone | + +------+ + | Timothy Elmore | PCP | | + +------+ + Reason for Visit +--------+ + | Reason | Comments | +--------+ + | Other | DexaScan prep | +--------+ + Encounter Details +--------+ + + + + | Date | Type | Department | Care Team | Description | +--------+ + + + + | 10/19/ | Telephone | [facility] | Timothy Elmore PA | Other ([facility] | | 2015 | | [address] [facility] | [address] | prep) | | | | [address] | [address] [place] | | | | | [place] | [address] | | | | | [address] | [phone] | | | | | [phone] | | | +--------+ + + + [...]
--- OUTSIDE RECORDS SUMMARY | ~2019-01-07 | XMS | Encounter Summary ---
Demographics + + + | Address | [address] | | | [place] [address] | + + + | Home Phone | | + + + | Preferred Language | Unknown | + + + | Marital Status | Single | + + + | Presybeterian Affiliation | Unknown | + + + | Race | White | + + + | Ethnic Group | Not or | + + + Author + + + | Author | [facility] | + + + | Organization | [facility] | + + + | Address | Unknown | + + + | Phone | Unavailable | + + + Support + + + + + | Name | Relationship | Address | Phone | + + + + + | Zaida Putnam | ECON | [address] | | | | | [place], | | | | | [place] [address] | | + + + + + Care Team Providers + +------+ + | Care Room Service Clerk Name | Role | Phone | + +------+ + PCP | Unavailable | + +------+ + Encounter Details +--------+ + + + + | Date | Type | Department | Care Team | Description | +--------+ + + + + | 04/11/ | Office | UNKNOWN DEPARTMENT | Note, Outpatient | Progress Note | | 1994 | Visit-Trans | [address] [facility] | Clinic | | | | [place] | [address] | | | | | | [place], [place] | | | | | | [address] | | | +--------+ + + + [...] as of this encounter Progress Notes Interface, Registration Officer In - 06/11/2006 5:10 AM PDT CLINIC DATE: 04/11/94 NEUROLOGY CLINIC: Litzy returns for follow-up of her chronic pain syndrome. Since our last visit, I have had the opportunity to review an lumbosacral (LS) spine magnetic resonance imaging (MRI) performed at an outside hospital and dated 05/06/93. This was performed at [facility]. It was a good quality study and appeared to be completely normal. There was no evidence of disc herniation or root compression. This is yet another normal study to add to the normal brain MRI, the unimpressive repeated neurologic examinations and the minimally abnormal electromyography (EMG). The EMG showed some distal slowing in the peroneal motor nerves, with no evidence of distal denervation and no evidence of change in the sural nerves. The EMG abnormalities are minor and do not explain the pain syndrome. They are probably incidental. Litzy has also undergone neuropsychologic evaluation in the Medical Psychology group here under the care of Doctors Kirill and Darlene. Their impressions were: 1) undifferentiated somatoform disorder; 2) rule out borderline personality disorder. Litzy continues to complain of episodic whole-body "tremors." She also continues to complain of hip and low-back pain and loss of sensation in her lower extremities. She has recently consulted a urologist and apparently has some bladder surgery pending. The urologist intends to do some cystometrograms prior to the bladder surgery. PHYSICAL EXAMINATION: Litzy is well-developed, and appears well. She is in no acute distress. Her weight is 172 pounds, blood pressure 136/80, heart rate 80 and regular. She had some mild straightening of the lumbosacral spine, and had diffuse trigger points over her lumbosacral area and over her entire back. She was able to bend forward as much as 90x, however, and had a negative straight leg raise bilaterally. Her patellar and ankle jerk reflexes were intact, and, were in fact brisk and normoactive. She was able to ambulate normally, and to walk on her heels and toes, and perform tandem gait. She was able to hop on either foot, although she reported that this caused her some hip and low-back pain. IMPRESSION: 1. Chronic pain syndrome with no evidence of neurologic illness other than an incidental polyneuropathy. 2. Neuropsychologic evaluation consistent with somatization disorder. We discussed this impression with the patient and offered the possibility that some of her symptoms may be stress related. She was again resistant to this possibility, although she clearly understood the diagnostic impression delivered to her. She intends to [facility] where she is currently enrolled in an experimental protocol with an opiate cocktail versus placebo. PLAN: 1. Discharge from Neurology Clinic. 2. Follow-up in Pain Clinic. Faisal Grijalva M.D. [employer], Neurology FELIZ:manuel documented in this encounter Plan of Treatment Not on filedocumented as of this encounter Visit Diagnoses Not on filedocumented in this encounter
--- OUTSIDE RECORDS SUMMARY | ~2019-01-07 | XMS | Encounter Summary ---
Demographics + + + | Address | [address] | | | [place] [address] | + + + | Home Phone [...] [place], | | | | | [place] [address] | | + + + + + Care Team Providers + +------+ + | Care Unit Manager Name | Role | Phone | + +------+ + PCP | Unavailable | + +------+ + Encounter Details +--------+ + + + + | Date | Type | Department | Care Team | Description | +--------+ + + + + | 09/04/ | Office | General Internal | Note, Outpatient | Progress Note | | 1994 | Visit-Trans | Medicine [address] | Clinic | | | | [place] | [address] | | | | | | Mailcode: [id number] | | | | | | Outpatient Clinic | | | | | | [address] | | | | | | [place], [place] | | | | | | [address] | | | | | | [phone] | | | +--------+ + + + [...] as of this encounter Progress Notes Interface, Kier Boiler In - 06/03/2006 2:00 AM PDT CLINIC [...] Ms. Evans has not been attending her yarsani on Sundays but continues to go to local yarsani meetings. She denies sedation, and nausea and [...] increased social function and participation in her catholic group. John Mulligan M.D. Gear Finisher, Anesthesiology Director, Pain Management Services PK:bony cc: CAROLINE YOON MD HIGH SPEED PRINTER OPERATOR ORTHOPEDICS [facility] documented in this encounter Plan of Treatment Not on filedocumented as of this encounter Visit Diagnoses Not on filedocumented in this encounter
--- OUTSIDE RECORDS SUMMARY | ~2019-01-07 | XMS | Encounter Summary ---
Demographics + + + | Address | [address] | | | [place] [address] | + + + | Home Phone | | + + + | Preferred Language | Unknown | + + + | Marital Status | Single | + + + | Hindu Affiliation | Unknown | + + + | Race | Unknown | + + + | Ethnic Group | Unknown | + + + Author + + + | Author | [facility] | | | and [place] | + + + | Organization | [facility] | | | and [place] [...] Team Providers + +------+ + | Care Cut And Cover Line Worker Name | Role | Phone | + +------+ + | Timothy Elmore | PCP | | + +------+ + Reason for Visit +---------+ + | Reason | Comments | +---------+ + | Results | | +---------+ + Encounter Details +--------+ + + + + | Date | Type | Department | Care Team | Description | +--------+ + + + + | 12/21/ | Telephone | RONNI REEDER N | Joe Flores, | Results | | 2014 | | [place] | MD [address] [place] | | | | | ENDOCRINOLOGY [address] | [address] | | | | | [facility] [address] [address] | [place] [address] | | | | | [address] [place] | [phone] | | | | | [address] | | | | | | [phone] | | | +--------+ + + + [...] on filedocumented as of this encounter Results Cortisol, 60 Min (12/23/2014 9:04 AM PST) + + + + + + | Component | Value | Ref Range | Performed | Pathologist | | | | | At | Signature | + + + + + + | CORTISOL 60 | 27.6Comment: Performed | ug/dL | [facility] | | | MIN | by [facility] | | [place] | | | | [address] | | CORE | | | | [place] [address] | | LABORATORY | | | | [...] + + | [facility] [place] | [address] | [place] [address] | [phone] | | CORE LABORATORY (I) | | | | + + + + + Adrenocorticotropic Hormone (12/23/2014 7:51 AM PST) + + + + + + | Component | Value | Ref Range | Performed | Pathologist | | | | | At | Signature | + + + + + + | ACTH | 9Comment: 0 to 46 pg/mL | 0 - 46 pg/mL | [facility] | | | | for adults drawn | | [place] | | | | between 7 and 10 | | CORE | | | | a.m.Testing Performed: | | LABORATORY | | | | [facility], [address], | | (I) | | | | [place] [address] | | | | + + + + + + + + | Specimen | + + | Blood specimen | | (specimen) | + + + + + + + | Performing | Address | City/State/Zipcode | Phone Number | | Organization | | | | + + + + + | [facility] | [address] | [place] [address] | [phone] | | CORE LABORATORY (I) | | | | + + + + + Cortisol, AM (12/23/2014 7:51 AM PST) + + + + + + | Component | Value | Ref Range | Performed | Pathologist | | | | | At | Signature | + + + + + + | CORTISOL, | 10.2Comment: Cortisol | 6.7 - 22.6 | [facility] | | | AM | Reference range for | ug/dL | [place] | | | | children less than 6 | | CORE | | | | years of age has not | | LABORATORY | | | | been established at | | (I) | | | | [facility]Performed by | | | | | | [facility] [address] | | | | | | [place] | | | | | | | | | | + + + + + + + + | Specimen | + + | Blood specimen | | (specimen) | + + + + + + + | Performing | Address | City/State/Zipcode | Phone Number | | Organization | | | | + + + + + | [facility] | [address] | [place] [address] | [phone] | | CORE LABORATORY (I) | | | | + + + + + documented in this encounter Visit Diagnoses + + | Diagnosis | + + | 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
--- OUTSIDE RECORDS SUMMARY | ~2019-01-07 | XMS | Encounter Summary ---
Demographics + + + | Address | [address] | | | [place] [address] | + + + | Home Phone [...] + + | Author | [facility] | + + + | Organization | [facility] | + + + | Address | Unknown | + + + | Phone | Unavailable | + + + Support + + + + + | Name | Relationship | Address | Phone | + + + + + | Zaida Putnam | ECON | [address] | | | | | [place], | | | | | [place] [address] | | + + + + + Care Team Providers + +------+ + | Care Change Management Name | Role | Phone | + [...] as of this encounter Progress Notes Interface, Coupling Machine Operator In - 02/23/2006 5:02 AM PSTCLINIC DATE: [...] feel even more strongly that starting Ms. vEans on any opiate would not be in [...] M.D. Resident, Internal Medicine Wallace Szymanski M.D. Open Winder, Internal Medicine TORI:mau d ocumented in this encounter Plan of Treatment Not on filedocumented as of this encounter Visit Diagnoses Not on filedocumented in this encounter
--- OUTSIDE RECORDS SUMMARY | ~2019-01-07 | XMS | Encounter Summary ---
Demographics + + + | Address | [address] | | | [place] [address] | + + + | Home Phone | | + + + | Preferred Language | Unknown | + + + | Marital Status | Single | + + + | Restoration Affiliation | Unknown | + + + | Race | White | + + + | Ethnic Group | Not or | + + + Author + + + | Author | [facility] | + + + | Organization | [facility] | + + + | Address | Unknown | + + + | Phone | Unavailable | + + + Support + + + + + | Name | Relationship | Address | Phone | + + + + + | Zaida Putnam | ECON | [address] | | | | | [place], | | | | | [place] [address] | | + + + + + Care Team Providers + +------+ + | Care Fur Cutter Name | Role | Phone | + [...] [id number] | | | | | | [place], [place] | | | | | | [address] | | | | | | [phone] | | | +--------+ + + + [...] OF | [address] | [place] [address] | | | PATHOLOGY | YOKASTA BUTCHER | | | + + + + + documented in this encounter Visit Diagnoses Not on filedocumented in this encounter"
--- OUTSIDE RECORDS SUMMARY | ~2019-01-07 | XMS | Encounter Summary ---
Demographics + + + | Address | [address] | | | [place] [address] | + + + | Home Phone | | + + + | Preferred Language | Unknown | + + + | Marital Status | Single | + + + | Amish Affiliation | Unknown | + + + [...] [place], | | | | | [place] [address] | | + + + + + Care Team Providers + +------+ + | Care Hyperbaric Technician Name | Role | Phone | + +------+ + PCP | Unavailable | + +------+ + Encounter Details +--------+ + + + + | Date | Type | Department | Care Team | Description | +--------+ + + + + | 01/03/ | Results | Neurology Aging & | Faisal Grijalva MD | | | 1993 | Only | [facility] | [address] | | | | | [address] | [place], [place] | | | | | Vernell Correa Mailcode: | [id number] | | | | | [id number] Outpatient | [phone] | | | | | Clinic Building | | | | | | [place], [place] | | | | | | [address] | | | | | | [phone] | | | +--------+ + + + [...] | + +--------+ + + + | MRI BRAIN, 3 SEQ, [facility] | Routin | 01/03/1994 | | Results for this | | | e | 4:50 PM | | procedure are in the | | | | PST | | results section. | + +--------+ + + + documented in this encounter Results MRI BRAIN, 3 SEQ, (01/03/1994 4:50 PM PST) + + + + + + | Component | Value | Ref Range | Performed | Pathologist | | | | | At | Signature | + + + + + + | MRI BRAIN, | Radiologist 1: | | | | | 3 SEQ, | JERRY ASHLEY, | | | | | | MEfrain-Radiologist 2: | | | | | | JERRY ASHLEY, | | | | | | LITZY MONROY M | | | | | | | | | | | | | | | | | | | | | | | | MRI OF THE | | | | | | BRAIN: 01/03/94, 1650 | | | | | | HOURS Dictated | | | | | | 01/04/94 CLINICAL | | | | | | HISTORY: Multiple | | | | | | sclerosis? COMPARISON: | | | | | | No old films available | | | | | | for comparison. | | | | | | PROCEDURE: Sagittal, | | | | | | transaxial and coronal | | | | | | spin-echo images of | | | | | | thebrain were obtained. | | | | | | FINDINGS: The | | | | | | ventricular system is | | | | | | normal in size, shape | | | | | | andposition. There is | | | | | | no evidence of abnormal | | | | | | signal to | | | | | | suggestinfarction, | | | | | | hemorrhage or mass | | | | | | lesion. The posterior | | | | | | fossa structuresand | | | | | | pituitary gland are | | | | | | normal. The visualized | | | | | | paranasal sinuses, | | | | | | mastoid air cells and | | | | | | orbits areunremarkable. | | | | | | IMPRESSION: Normal | | | | | | non-contrast MRI of the | | | | | | brain. END OF | | | | | | IMPRESSION: | | | | + + + + + + + + | Specimen | + + | | + + + +---------+ + + | Performing | Address | City/State/Zipcode | Phone Number | | Organization | | | | + +---------+ + + | [facility] | | | | | RADIOLOGY | | | | + +---------+ + + documented in this encounter Visit Diagnoses Not on filedocumented in this encounter"
--- OUTSIDE RECORDS SUMMARY | ~2019-01-07 | XMS | Encounter Summary ---
Demographics + + + | Address | [address] | | | [place] [address] | + + + | Home Phone | | + + + | Preferred Language | Unknown | + + + | Marital Status | Single | + + + | Roman Catholic Affiliation | Unknown | + + + [...] [place], | | | | | [place] [address] | | + + + + + Care Team Providers + +------+ + | Care Production Scheduler Name | Role | Phone | + +------+ + PCP | Unavailable | + +------+ + Encounter Details +--------+ + + + + | Date | Type | Department | Care Team | Description | +--------+ + + + + | 09/28/ | Office | General Internal | Note, Outpatient | Progress Note | | 1994 | Visit-Trans | Medicine [address] | Clinic | | | | [place] | [address] | | | | | | Mailcode: L475 | | | | | | Outpatient Clinic | | | | | | [address] | | | | | | [place], [place] | | | | | | [address] | | | | | | [phone] | | | +--------+ + + + [...] as of this encounter Progress Notes Interface, Marksmanship Instructor In - 06/01/2006 3:00 AM PDT CLINIC [...] in the Pain Clinic. Faisal Grijalva M.D. Linux Solaris Administrator, Neurology JSantana/ben documented in this encounter Plan of Treatment Not on filedocumented as of this encounter Visit Diagnoses Not on filedocumented in this encounter"
--- OUTSIDE RECORDS SUMMARY | ~2019-01-07 | XMS | Encounter Summary ---
Demographics + + + | Address | [address] | | | [place] [address] | + + + | Home Phone | | + + + | Preferred Language | Unknown | + + + | Marital Status | Single | + + + | Shinto Affiliation | Unknown | + + + | Race | Unknown | + + + | Ethnic Group | Unknown | + + + Author + + + | Author | [facility] | | | and [place] | + + + | Organization | [facility] | | | and [...] Team Providers + +------+ + | Care Caddie Supervisor Name | Role | Phone | + +------+ + | Timothy Elmore | PCP | | + +------+ + Reason for Referral Evaluate & Treat (Routine) +--------+ + + [...] | | Procedures | [address] | | | | | [facility] | [address] | | | | | 05/09/15 | [place] | [place] | | | | | | | Phone: | | | | | | Phone: | [phone] | | | | | | [phone] | Fax: | | | | | | Fax: | [phone] | | | | | | [phone] | | +--------+ + + + + + + + | Scheduling Instructions | + + | 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 Will arrange a | | consultation with Will Villasenor MD for eval/Rx of this problem. | + + Reason for Visit + + + | Reason | Comments | + + + | Follow-up | F/U Lumbar--New EMG | + + + Evaluate & Treat (Routine) +--------+--------+ + + + + | Status | Reason | Specialty | Diagnoses / | Referred By | Referred To | | | | | Procedures | Contact | Contact | +--------+--------+ + + + + | Closed | | Neurosurgery | Diagnoses | Catarina | Alise Osborne | | | | | Other | ASHANTI Aguirre | Ever Crani | | | | | nonspecific | [address] | [address] | | | | | (abnormal) | [place] | [address] , | | | | | findings on | [address] | [address] | | | | | radiological | [place], | [place] | | | | | and other | [place] | [address] | | | | | examinations | [address] | Phone: | | | | | of body | Phone: | [phone] | | | | | structure | [phone] | Fax: | | | | | Procedures | | [phone] | | | | | CSJ-06/29 | | | +--------+--------+ + + + + Encounter Details +--------+---------+ + + + | Date | Type | Department | Care Team | Description | +--------+---------+ + + + | 05/08/ | Office | [facility] [place] [facility] | Tapan Bragg | Lumbar stenosis | | 2016 | Visit | [facility] | MD Fel[address] | (Primary Dx) | | | | [address] [facility] | [facility] [address], | | | | | [address] [place] [address] | [place] [address] | | | | | [address] | [phone] | | | | | [phone] | | | +--------+---------+ + + + [...] + + + | Blood Pressure | - | - | | + + + + + | Pulse | - | - | | + + + + + | Temperature | - | - | | + + + + + | Respiratory Rate | - | - | | + + + + + | Oxygen Saturation | - | - | | + + + + + | Inhaled Oxygen | - | - | | | Concentration | | | | + + + + + | Weight | 62.6 kg (138 lb) | 05/09/2015 2:23 PM | | | | | PDT | | + + + + + | Height | 166.4 cm (5' 5.5") | 05/09/2015 2:23 PM | | | | | PDT | | + + + + + | Body Mass Index | 22.62 | 05/09/2015 2:23 PM | | | | | PDT | | + + + + + documented in this encounter Patient Instructions Patient Instructions Tapan Bragg Jr., MD - 05/09/2015 3:02 PM PDTDATE: 3-21-16 PCP: Timothy Elmore MD SOURCE OF REFERRAL: same ACCOMPANIED BY: Self HISTORY: No change from, the last visit, 08-09-14 (see below) LBP since high school. "Short leg (right) and long leg (left) " - all her life. Off Narcotics January 2014 - last was Morphine initiated in connection with multiple Non-back surgeries. Has been able to manage the LBP with self medication and HEP. About 2 months ago was digging up blackberries and developed painless weakness in the left ankle. Now wants to exercise with an elastic resistance band called a "speed shaper". Referred here to see if that will be OK. PAST MEDICAL HISTORY: See chart EXAMINATION: No change from the last visit 08-09-14 (see below) Weakness of the left EHL/AT (left -4/5 and right 5/5) . Otherwise, no weakness elsewhere in the LE's. No loss of light touch in the LE's. KJ's and AJ's 0-tr/4, =. Able to tip toe bilaterally but only able to walk on the right heel -not the left heel. Cranial nerve and UE neurological function intact to inspection and by report. IMAGING: No change from the last visit 08-09-14 (see below) The 06-24-14 L-MRI scan did not show any disc herniation or stenosis or instability - and in fact looked like it was from a patient 1/2 her age! The highlights of the scan were shown to the patient. 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 No peripheral neuropathy or radiculopathy. IMPRESSION: Partial foot drop on the left side secondary to activity 2 months ago; etiology unclear Chronic LBP x years. 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 RTC prn Rationale for this approach explained to the patient. All questions were answered. MEDICATIONS: None through this clinic WORK: Disabled/retired because of LBP/Knee pain/Feet pain NOTE: Please sign up for MY CHART at the front clerk. Just ask the staff there to help you. Tapan Bragg MD documented in this encounter Progress Notes Tapan Bragg Jr., MD - 05/09/2015 2:55 PM PDTFormatting of this note might be differe nt from the original. DATE: 05-09-15 PCP: Timothy Elmore MD SOURCE OF REFERRAL: same ACCOMPANIED BY: Self HISTORY: No change from, the last visit, 08-09-14 (see below) LBP since high school. "Short leg (right) and long leg (left) " - all her life. Off Narcotics January 2014 - last was Morphine initiated in connection with multiple Non-back surgeries. Has been able to manage the LBP with self medication and HEP. About 2 months ago was digging up blackberries and developed painless weakness in the left ankle. Now wants to exercise with an elastic resistance band called a "speed shaper". Referred here to see if that will be OK. PAST MEDICAL HISTORY: See chart EXAMINATION: No change from the last visit 08-09-14 (see below) Weakness of the left EHL/AT (left -4/5 and right 5/5) . Otherwise, no weakness elsewhere in the LE's. No loss of light touch in the LE's. KJ's and AJ's 0-tr/4, =. Able to tip toe bilaterally but only able to walk on the right heel -not the left heel. Cranial nerve and UE neurological function intact to inspection and by report. IMAGING: No change from the last visit 08-09-14 (see below) The 06-24-14 L-MRI scan did not show any disc herniation or stenosis or instability - and in fact looked like it was from a patient 1/2 her age! The highlights of the scan were shown to the patient. 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 No peripheral neuropathy or radiculopathy. IMPRESSION: Partial foot drop on the left side secondary to activity 2 months ago; etiology unclear Chronic LBP x years. 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 RTC prn Rationale for this approach explained to the patient. All questions were answered. MEDICATIONS: None through this clinic WORK: Disabled/retired because of LBP/Knee pain/Feet pain NOTE: Please sign up for MY CHART at the front clerk. Just ask the staff there to help you. Tapan Bragg MD documented in t his encounter Plan of Treatment + + +--------+ + + | Name | Type | Priori | Associated Diagnoses | Order Schedule | | | | ty | | | + + +--------+ + + | * [facility] [place] [facility] | Outpatient | Routin | Lumbar stenosis | Ordered: 05/09/2015 | | Cranial Spine Joint | Referral | e | | | | - AMB Referral | | | | | + + +--------+ + + documented as of this encounter Visit Diagnoses + + | Diagnosis | + + | Lumbar stenosis - Primary Spinal stenosis, lumbar region, without neurogenic | | claudication | + + documented in this encounter
--- OUTSIDE RECORDS SUMMARY | ~2019-01-07 | XMS | Encounter Summary ---
Demographics + + + | Address | [address] | | | [place] [address] | + + + | Home Phone | | + + + | Preferred Language | Unknown | + + + | Marital Status | Single | + + + | Spiritism Affiliation | Unknown | + + + | Race | White | + + + | Ethnic Group | Not or | + + + Author + + + | Author | [facility] | + + + | Organization | [facility] | + + + | Address | Unknown | + + + | Phone | Unavailable | + + + Support + + + + + | Name | Relationship | Address | Phone | + + + + + | Zaida Putnam | ECON | [address] | | | | | [place], | | | | | [place] [address] | | + + + + + Care Team Providers + +------+ + | Care Fisher Gill Net Name | Role | Phone | + +------+ + PCP | Unavailable | + +------+ + Encounter Details +--------+ + + + + | Date | Type | Department | Care Team | Description | +--------+ + + + + | 04/11/ | Office | UNKNOWN DEPARTMENT | Note, Outpatient | Progress Note | | 1994 | Visit-Trans | [address] | Clinic | | | | [place] | [address] | | | | | | [place], [place] | | | | | | [address] | | | +--------+ + + + [...] as of this encounter Progress Notes Interface, Cocktail Waitress In - 06/11/2006 5:10 AM PDT CLINIC DATE: 04/11/94 NEUROLOGY CLINIC: Litzy returns for follow-up of her chronic pain syndrome. Since our last visit, I have had the opportunity to review an lumbosacral (LS) spine magnetic resonance imaging (MRI) performed at an outside hospital and dated 05/06/93. This was performed at [facility]. It was a good quality study and [...] Follow-up in Pain Clinic. Faisal Grijalva M.D. Theatre Manager, Neurology FELIZ:manuel documented in this encounter Plan of Treatment Not on filedocumented as of this encounter Visit Diagnoses Not on filedocumented in this encounter
--- OUTSIDE RECORDS SUMMARY | ~2019-01-07 | XMS | Encounter Summary ---
Demographics + + + | Address | [address] | | | [place] [address] | + + + | Home Phone | | + + + | Preferred Language | Unknown | + + + | Marital Status | Single | + + + | Spiritism Affiliation | Unknown | + + + | Race | Unknown | + + + | Ethnic Group | Unknown | + + + Author + + + | Author | [facility] | | | and [place] | + + + | Organization | [facility] | | [...] Team Providers + +------+ + | Care Substance Abuse Specialist Name | Role | Phone | + +------+ + | Timothy Elmore | PCP | | + +------+ + Reason for Visit + + + | Reason | Comments | + + + | Procedure | [facility] | + + + Diagnostic/Screening (Routine) +--------+--------+ + + + + | Status | Reason | Specialty | Diagnoses / | Referred By | Referred To | | | | | Procedures | Contact | Contact | +--------+--------+ + + + + | Closed | | Physical | Diagnoses | Catairna, | Brent, | | | | Medicine and | Thoracic or | ASHANTI Aguirre | Jill | | | | Rehabilitatio | lumbosacral | [address] | [address] | | | | n | neuritis or | [place] | [address] | | | | | | [address] | [place], | | | | | radiculitis, | [place], | [place] | | | | | unspecified | [place] | Phone: | | | | | LLE EMG | [address] | [phone] | | | | | | Phone: | Fax: | | | | | | [phone] | [phone] | +--------+--------+ + + + + Encounter Details +--------+ + + + + | Date | Type | Department | Care Team | Description | +--------+ + + + + | 02/24/ | Procedure | [facility] | Brent, | Peroneal neuropathy | | 2016 | visit | PHYSIATRY [address] | at knee, left | | | | [address] F[address] | [address] [place] | (Primary Dx) | | | | [place] | [place] | | | | | [address] | [phone] | | | | | | | | +--------+ + + [...] + + + | Blood Pressure | 128/64 | 02/24/2015 2:41 PM | | | | | PST | | + + + + + | Pulse | 78 | 02/24/2015 2:41 PM | | | | | PST | | + + + + + | Temperature | 37.1 C (98.8 F) | 02/24/2015 2:41 PM | | | | | PST | | + + + + + | Respiratory Rate | 18 | 02/24/2015 2:41 PM | | | | | PST | | + + + + + | Oxygen Saturation | - | - | | + + + + + | Inhaled Oxygen | - | - | | | Concentration | | | | + + + + + | Weight | 63 kg (138 lb 12.8 | 02/24/2015 2:41 PM | | | | oz) | PST | | + + + + + | Height | 166.4 cm (5' 5.5") | 02/24/2015 2:41 PM | | | | | PST | | + + + + + | Body Mass Index | 22.75 | 02/24/2015 2:41 PM | | | | | PST | | + + + + + documented in this encounter Progress Notes Lane Kennedy MD - 02/24/2015 2:37 PM PSTFormatting of this note might be differen t from the original. Dear Timothy Elmore, I appreciate this opportunity to participate in the care of your patient. Ms. Litzy Evans is a 59 y.o. , right-handed Female who complains of bilateral lateral calves and above ankles numbness for 25 years and left 2-4th toes numbness for the last 4 ye ars since procedure for Aviles's neuroma. She has low back pain also chronically. Weakness: left leg Bowel and Bladder: continent Medication: Current Outpatient Prescriptions on File Prior to Visit Medication Sig Dispense Refill busPIRone (BUSPAR) 30 [...] Take 200 mg by mouth Daily. No current facility-administered medications on file prior to visit. PAST MEDICAL HISTORY: Past Medical History Diagnosis Date HTN (hypertension) PAST SURGICAL HISTORY: Past Surgical History Procedure Laterality Date Tonsillectomy Tubal ligation Carpal tunnel release Partial hysterectomy Removal of lump Tarsal tunnel History Social History Marital Status: Single Spouse Name: N/A Number of Children: N/A Years of Education: N/A Occupational History Not on file. Social History Main Topics Smoking status: Current Every Day Smoker Smokeless tobacco: Never Used Alcohol Use: No Drug Use: Yes Special: Marijuana Sexual Activity: Not on file Other Topics Concern Not on file Social History Narrative History reviewed. No pertinent family history. PHYSICAL EXAM: Motor strength exam: Hip flexors right 5/5, left 4+/5 Knee extensors right 5/5, left 5/5 Ankle dorsiflexors right 5/5, left 5/5 EHL right 5/5, left 5/5 Ankle plantar flexors right 5/5, left 4+/5 Sensory Exam: Light Touch: decreased on bilateral upper lateral calves and lower roper areas Muscle stretch reflexes: RLE: Knee 2+, Ankle 2+ LLE: Knee 1+, Ankle 1+ Babinski sign: not present. Muscle tones: normal on all lower extremities. Ankle Clonus: absent. [address] [address] Patient: Litzy Evans Date of : 1955 Sex: Female Age: 59 Years 4 Months Height: 5 feet 5 inch Sensory NCS Nerve / Sites Rec. Site Onset Lat Peak Lat MANAGER POWER Amp PP Amp Segments Distance Velocity ms ms V V cm m/s L SURAL - Lat Mall Antidr Calf Lat Mall 3.05 3.60 6.7 7.6 Calf - Lat Mall 14 45.9 Ref. 5.00 4.20 5.0 Ref. 40.0 L SUP PERONEAL - Ankle Antidr Lat Leg Ankle 3.45 4.00 7.4 4.0 Lat Leg - Ankle 14 40.6 Ref. 5.00 4.20 Ref. 40.0 Motor NCS Nerve / Sites Rec. Site Lat Amp Seq Amp Segments Dist Velocity ms mV % cm m/s L COMM PERONEAL - EDB Ankle EDB 4.55 2.0 100 Ankle - EDB 8 Ref. 5.30 4.3 Ref. Fib Head EDB 11.40 1.6 83.4 Fib Head - Ankle 30 43.8 Ref. Ref. 40.0 Knee EDB 14.45 2.0 123 Knee - Fib Head 10 32.8 Ref. Ref. 40.0 L TIBIAL (KNEE) - AH Ankle AH 3.45 14.3 100 Ankle - AH 8 Ref. 3.90 7.3 Ref. Knee AH 12.25 10.7 74.7 Knee - Ankle 37.5 42.6 Ref. Ref. 40.0 F Wave Nerve Fmin ms L COMM PERONEAL 52.40 REF 56.00 L TIBIAL (KNEE) 52.45 REF 56.00 EMG Summary Table Spontaneous MUAP Recruitment IA Fib PSW Fasc H.F. Amp Dur. PPP Pattern L. VAST MEDIALIS N None None None None N N N N L. TIB ANTERIOR N None None None None N N 1+ N L. PERON LONGUS N None None None None N N 2+ N L. GASTROCN (MED) N None None None None N N N N L. BIC FEM (S HEAD) N None None None None N N N N L. T FASCIA MATEO N None None None None N N N N FINDINGS: Left sural and superficial peroneal nerve conduction studies are normal. Left common peroneal nerve compound muscle action potential amplitude is decreased with nor mal distal latency and F-wave latency but conduction velocity from popliteal fossa to fibula r head is decreased. Left tibial motor nerve conduction study is normal as well as F-wave latency. EMG study of left tibialis anterior and peroneus longus muscles chronic neuropathic pattern of motor unit action potentials without any abnormal spontaneous activities but other above muscles from left upper extremity including biceps femoris short head show normal findings. INTERPRETATION: This is an abnormal study. 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 Electronically signed by: Betsy Kennedy MD 02/24/2015 15:32 documented in this encounter Plan of Treatment Not on filedocumented as of this encounter Visit Diagnoses + + | Diagnosis | + + | Peroneal neuropathy at knee, left - Primary | + + documented in this encounter
--- OUTSIDE RECORDS SUMMARY | ~2019-01-07 | XMS | Clinical Summary ---
Demographics + + + | Address | [address] | | | [place] [address] | + + + | Home Phone | | + + + | Preferred Language | Unknown | + + + | Marital Status | Single | + + + | Moravian Affiliation | Unknown | + + + [...] [place], | | | | | [place] [address] | | + + + + + Care Team Providers + +------+ + | Care Water Sander Name | Role | Phone | + +------+ + PCP | Unavailable | + +------+ + Source Comments MARY is fully live on both [facility] and [facility] Allergies Not on File Medications Not on [...]
--- OUTSIDE RECORDS SUMMARY | ~2019-01-07 | XMS | Encounter Summary ---
Demographics + + + | Address | [address] | | | [place] [address] | + + + | Home Phone | | + + + | Preferred Language | Unknown | + + + | Marital Status | Single | + + + | Holiness Affiliation | Unknown | + + + [...] [place], | | | | | [place] [address] | | + + + + + Care Team Providers + +------+ + | Care Rubber Goods Supervisor Name | Role | Phone | [...] [id number] | | | | | | [place], [place] | | | | | | [address] | | | | | | [phone] | | | +--------+ + + + [...] OF | [address] | [place] [address] | | | PATHOLOGY | YOKASTA BUTCHER | | | + + + + + documented in this encounter Visit Diagnoses Not on filedocumented in this encounter"
--- OUTSIDE RECORDS SUMMARY | ~2019-01-07 | XMS | Encounter Summary ---
Demographics + + + | Address | [address] | | | [place] [address] | + + + | Home Phone [...] [place], | | | | | [place] [address] | | + + + + + Care Team Providers + +------+ + | Care Chemist Name | Role | Phone | + +------+ + PCP | Unavailable | + +------+ + Encounter Details +--------+ + + + + | Date | Type | Department | Care Team | Description | +--------+ + + + + | 02/02/ | Office | [facility] | Note, [...] as of this encounter Progress Notes Interface, Licensed Land Surveyor In - 02/21/2006 3:06 AM PSTCLINIC DATE: 02/02/1998 INTERNAL MEDICINE CLINIC SUBJECTIVE: Ms. Evans presents today for follow-up of her chronic pain, removal of a wart and complaints of left sided hip pain. As to her chronic pain, she states that her pain levels went to a 5/10 to a 1/10 during the period that she was on Vicodin. At this time, she has been off of Vicodin for a week and a half and reports recurrence of her pain. She is requesting medication and agrees to a contract whereby she would only be given 30 Vicodin tablets per month, soley being administered by myself. Her pain is diffuse and mostly located in her proximal muscles. She also complains of migraine headaches intermittently as well. Her left hip pain is located mostly on the side of her head which prohibits her from being able to roll over onto that side. The pain is precipitated mostly by standing for long periods of time. As for her wart, she has had a wart on her second finger of the right hand for several years. I treated it with liquid nitrogen during her last visit. She states that the wart is still present and she would like to have a second treatment. OBJECTIVE: VITAL SIGNS: Weight is 161 pounds. The blood pressure is 118/88, pulse 80 and regular. GENERAL: This is a well-nourished white female who is in no acute distress. She is quite pleasant. Speech is better controlled in terms of rate and volume than on the previous visits. The affect is normal. The speech content is normal. Examination of the left hip reveals moderate tenderness on palpation over the greater trochanter. PROCEDURE NOTE: Ms. Evans received a corticosteroid injection of the left greater trochanteric bursa. She was thoroughly PARQ'd prior to the procedure. She agreed verbally to the procedure knowing that the risks include bleeding, infection and exacerbation of her pain. The area over the greater trochanter was located via palpation. Her skin was cleaned with Povidine, iodine and numbed initially with ethyl chloride spray. 2-3 cc of 1% Lidocaine were instilled into the skin and bursa. 1 cc of 40 mg/ml of Triamcinolone was instilled into the bursa. ASSESSMENT AND PLAN: 1. Left greater trochanteric bursitis, status post corticosteroid injection. 1.1 Limit activities with bending and rigorous walking for the next 30 days. 1.2 Expect possible exacerbation of pain over the next two to three days. 1.3 Use nonsteroidal anti-inflammatory drugs and Vicodin PRN. 2. Wart on second finger of the right hand, status post freezing with liquid nitrogen. 2.1 We will follow and freeze with liquid nitrogen accordingly. 3. Chronic pain, mostly due to fibromyalgia. Since Ms. Evans appears to have responded to small doses of Vicodin, I agreed hesitantly to put her on a contraact of 30 Vicodin tablets per month. This means that I will be her SOLE SUBSCRIBER, in other words, she is not to receive any narcotics from any other provider including her dentist or any Emergency Room physician. In the future, all narcotic prescriptions will be done soley through myself. She understands that violation of this contract means discontinuation of her priviledges. In addition, she understands that she will not be given more than 30 per month, even if she loses her prescription. NOTE: Ms. Eavns's interview, physical examination and treatment plan was thoroughly reviewed with Dr. Wallace Szymanski. Hui Milton M.D. Resident, Internal Medicine Wallace Szymanski M.D. Hydrologist, Internal Medicine TORI/joshua d ocumented in this encounter Plan of Treatment Not on filedocumented as of this encounter Visit Diagnoses Not on filedocumented in this encounter"
--- OUTSIDE RECORDS SUMMARY | ~2019-01-07 | XMS | Encounter Summary ---
Demographics + + + | Address | [address] | | | [place] [address] | + + + | Home Phone | | + + + | Preferred Language | Unknown | + + + | Marital Status | Single | + + + | Denominational Affiliation | Unknown | + + + | Race | Unknown | + + + | Ethnic Group | Unknown | + + + Author + + + | Author | [facility] | | | and [place] | + + + | Organization | [facility] | | | and [...] Team Providers + +------+ + | Care Polygraph Technician Name | Role | Phone | + +------+ + | Timothy Elmore | PCP | | + +------+ + Encounter Details +--------+ + + + + | Date | Type | Department | Care Team | Description | +--------+ + + + + | 06/13/ | Orders Only | [facility] [place] [facility] | [place], | Nerve entrapment of | | 2015 | | [facility] | [address] | lower limb, left | | | | [address] | | | | | [address] [place] | [place] | | | | | [address] | [phone] | | | | | [phone] | | | +--------+ + + + [...] | Nerve entrapment of lower limb, left | + + documented in this encounter"
--- OUTSIDE RECORDS SUMMARY | ~2019-01-07 | XMS | Encounter Summary ---
Demographics + + + | Address | [address] | | | [place] [address] | + + + | Home Phone | | + + + | Preferred Language | Unknown | + + + | Marital Status | Single | + + + | Nondenominational Affiliation | Unknown | + + + [...] [place], | | | | | [place] [address] | | + + + + + Care Team Providers + +------+ + | Care Manager Game Name | Role | Phone | + [...]
--- OUTSIDE RECORDS SUMMARY | ~2019-01-07 | XMS | Encounter Summary ---
Demographics + + + | Address | [address] | | | [place] [address] | + + + | Home Phone | | + + + | Preferred Language | Unknown | + + + | Marital Status | Single | + + + | Congregation Affiliation | Unknown | + + + [...] [place], | | | | | [place] [address] | | + + + + + Care Team Providers + +------+ + | Care Photo Machine Operator Name | Role | Phone [...]
--- OUTSIDE RECORDS SUMMARY | ~2019-01-07 | XMS | Encounter Summary ---
Demographics + + + | Address | [address] | | | [place] [address] | + + + | Home Phone | | + + + | Preferred Language | Unknown | + + + | Marital Status | Single | + + + | Sabianist Affiliation | Unknown | + + + | Race | Unknown | + + + | Ethnic Group | Unknown | + + + Author + + + | Author | [facility] | | | and [place] | + + + | Organization | [facility] | | [...] Providers + +------+ + | Care Manager Bench Name | Role | Phone | + [...] | | 2014 | | ECTOR | [address] | | | | | ENDOCRINOLOGY [address] | [address] | | | | | [address] | [place] [address] | | | | | [address] [place] | [phone] | | | | | [address] | | | | | | [phone] | | | +--------+ + + + [...] | CORE | | | | [place] [address] | | LABORATORY | | | | [...] + + | [place] | [address] | [place] [address] | [phone] | | CORE LABORATORY (I) | | [...] | | CORE | | | | [address] | | LABORATORY | | | | [...] + + | [facility] | [address] | [place] [address] | [phone] | | CORE LABORATORY (I) | | | | + + + + + documented in this encounter Visit Diagnoses + + | Diagnosis | + + | Diarrhea | + + documented in this encounter"
--- OUTSIDE RECORDS SUMMARY | ~2019-01-07 | XMS | Encounter Summary ---
Demographics + + + | Address | [address] | | | [place] [address] | + + + | Home Phone | | + + + | Preferred Language | Unknown | + + + | Marital Status | Single | + + + | Latter Day Affiliation | Unknown | + + + [...] [place], | | | | | [place] [address] | | + + + + + Care Team Providers + +------+ + | Care Bulk Loader Name | Role | Phone | + +------+ + PCP | Unavailable | + +------+ + Encounter Details +--------+ + + + + | Date | Type | Department | Care Team | Description | +--------+ + + + + | 11/05/ | Transcribed | | Dictation, Other | Transcribed | | 1998 | | | | | +--------+ + [...] as of this encounter Progress Notes Interface, Computer Trainer In - 02/28/2006 3:08 AM [facility] [place] [address] [address] or November 05, 1997 OLEG PUGH MD [address] [facility] [address] RE: LITZY [place]ANS MR#: [id number] Pugh: I had the pleasure of seeing your patient, Ms. Litzy Evans, at [facility] today for evaluation of her chronic pain problem. Ms. Evans tells me that she has moved to [place] within the last week and plans to establish care in the month of November with Dr. Kaleb Velásquez here at [facility]. Therefore, I will send you a copy of this letter, as well as Dr. Velásquez. Please allow me to briefly review Ms. Evans' history, as well as my evaluations, findings, and suggestions. Ms. Evans is a 42-year-old woman with a longstanding history of low back pain who had been previously treated at the [facility] prior to my arrival at [facility]. She states that she has had [...] tried a variety of medications including Tegretol, Buckman, Amitriptyline, and other antidepressants. CURRENT MEDICATIONS: 1. [...] has recently ended. She has moved to [place] and is now living with an ex-'s mother. 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 She smokes one pack of cigarettes [...] also with some difficulty. Romberg is negative. Nxskpm-sdrz-vzawty is normal. On examination of her chest [...] normal limits." IMPRESSION: 1. Fibromyalgia by 1990 [employer] criteria. 2. Significant psychiatric [...] her care from Internal Medicine here at [facility], would be for her to see [...] the 1995 intractable pain act here in [place]. I agreed with Ms. Evans that should she establish care with Dr. Velásquez here at [facility], I would be happy to discuss her care with him at that point. In the meantime, I have nothing additional or specific to offer for Ms. Evans' care. Thank you very much for your referral of Ms. Evans to the [facility] here at [facility]. If you have any questions or concerns, please do not hesitate to give me a call at [phone]. Monroe Pruitt M.D. Automobile Locator, Anesthesiology Director of [facility] Management Center BRS:mau cc: Kaleb Velásquez M.D. Automobile Locator, Medicine Richie Her, M.D. Automobile Locator, Department of Orthopedics and Rehabilitation Kaleb Velásquez M.D. Automobile Locator, Medicine Richie Her M.D. Automobile Locator, Department of Orthopedics and Rehabilitation documented in this encounter Plan of Treatment Not on filedocumented as of this encounter Visit Diagnoses Not on filedocumented in this encounter
--- OUTSIDE RECORDS SUMMARY | ~2019-01-07 | XMS | Encounter Summary ---
Demographics + + + | Address | [address] | | | [place] [address] | + + + | Home Phone [...] [place], | | | | | [place] [address] | | + + + + + Care Team Providers + +------+ + | Care Electric Organ Inspector And Repairer Name | Role | Phone | + +------+ + PCP | Unavailable | + +------+ + Encounter Details +--------+ + + + + | Date | Type | Department | Care Team | Description | +--------+ + + + + | 07/24/ | Office | General Internal | Note, Outpatient | Progress Note | | 1994 | Visit-Trans | Medicine [address] | Clinic | | | | [place] | [address] | | | | | | Mailcode: [id number] | | | | | | Outpatient Clinic | | | | | | [address] | | | | | | [place], [place] | | | | | | [address] | | | | | | [phone] | | | +--------+ + + + [...] as of this encounter Progress Notes Interface, Smelter Liner In - 06/05/2006 1:00 AM PDT CLINIC [...] remained quite high including continued attendance of [employer] and working on opshty-nxo-pxhtb activities. She denies changes in bladder or [...] 2. Bladder dysfunction, resolved. John Mulligan M.D. Quill Reamer, Anesthesiology Director, Pain Management Services PK:bony documented in this encounter Plan of Treatment Not on filedocumented as of this encounter Visit Diagnoses Not on filedocumented in this encounter"
--- OUTSIDE RECORDS SUMMARY | ~2019-01-07 | XMS | Encounter Summary ---
Demographics + + + | Address | [address] | | | [place] [address] | + + + | Home Phone | | + + + | Preferred Language | Unknown | + + + | Marital Status | Single | + + + | Zoroastrianism Affiliation | Unknown | + + + [...] [place], | | | | | [place] [address] | | + + + + + Care Team Providers + +------+ + | Care Timber Spotter Name | Role | Phone | + [...] as of this encounter Progress Notes Interface, Sales Force Developer In - 02/12/2006 3:04 AM PSTCLINIC DATE: [...]
--- OUTSIDE RECORDS SUMMARY | ~2019-01-07 | XMS | Encounter Summary ---
Demographics + + + | Address | [address] | | | [place] [address] | + + + | Home Phone [...] [place], | | | | | [place] [address] | | + + + + + Care Team Providers + +------+ + | Care Center Hole Reamer Name | Role | Phone | + +------+ + PCP | Unavailable | + +------+ + Encounter Details +--------+ + + + + | Date | Type | Department | Care Team | Description | +--------+ + + + + | 09/28/ | Office | General Internal | Note, Outpatient | Progress Note | | 1994 | Visit-Trans | Medicine [address] | Clinic | | | | [place] | [address] | | | | | | Mailcode: [id number] | | | | | | Outpatient Clinic | | | | | | [address] | | | | | | [place], [place] | | | | | | [address] | | | | | | [phone] | | | +--------+ + + + [...] as of this encounter Progress Notes Interface, Golf Professional In - 06/01/2006 3:00 AM PDT CLINIC [...] in the Pain Clinic. Faisal Grijalva M.D. College Archivist, Neurology JSantana/ben documented in this encounter Plan of Treatment Not on filedocumented as of this encounter Visit Diagnoses Not on filedocumented in this encounter"
--- OUTSIDE RECORDS SUMMARY | ~2019-01-07 | XMS | Encounter Summary ---
Demographics + + + | Address | [address] | | | [place] [address] | + + + | Home Phone | | + + + | Preferred Language | Unknown | + + + | Marital Status | Single | + + + | Congregation Affiliation | Unknown | + + + | Race | Unknown | + + + | Ethnic Group | Unknown | + + + Author + + + | Author | [facility] | | | and [place] | + + + | Organization | [facility] | | | and [...] Team Providers + +------+ + | Care Tufter Hand Name | Role | Phone | + +------+ + | Timothy Elmore | PCP | | + +------+ + Reason for Visit + + + | Reason | Comments | + + + | Establish Care | TYPEWRITER ALIGNER : Lumbar Spine : Referred by PCP [...] | | and other | [place] | [address] | | | | | examinations | [address] | Phone: | | | | | of body | Phone: | [phone] | | | | | structure | [phone] | Fax: | | | | | Procedures | | [phone] | | | | | CSJ-06/29 | | | +--------+--------+ + + + + Encounter Details +--------+---------+ + + + | Date | Type | Department | Care Team | Description | +--------+---------+ + + + | 08/09/ | Office | [facility] | Tapan Bragg | Left foot drop | | 2015 | Visit | [facility] | MD Felisa [address] | (Primary Dx) | | | | [address] [facility] | [address], | | | | | [address] [place] | [place] | | | | | [address] | [phone] | | | | | [phone] | | | +--------+---------+ + + + [...] 08/09/2014 12:14 PM PDTDATE/TIME: 08/10/19 12:00 PCP: Timothy Elmore MD SOURCE OF [...]
--- OUTSIDE RECORDS SUMMARY | ~2019-01-07 | XMS | Encounter Summary ---
Demographics + + + | Address | [address] | | | [place] [address] | + + + | Home Phone | | + + + | Preferred Language | Unknown | + + + | Marital Status | Single | + + + | Taoism Affiliation | Unknown | + + + | Race | White | + + + | Ethnic Group | Not or | + + + Author + + + | Author | [facility] | + + + | Organization | [facility] | + + + | Address | Unknown | + + + | Phone | Unavailable | + + + Support + + + + + | Name | Relationship | Address | Phone | + + + + + | Zaida Putnam | ECON | [address] | | | | | [place], | | | | | [place] [address] | | + + + + + Care Team Providers + +------+ + | Care Treatment Specialist Name | Role | Phone | + +------+ + PCP | Unavailable | + +------+ + Encounter Details +--------+ + + + + | Date | Type | Department | Care Team | Description | +--------+ + + + + | 01/01/ | Office | UNKNOWN DEPARTMENT | Note, Outpatient | Progress Note | | 1993 | Visit-Trans | [address] [facility] | Clinic | | | | merritt | [address] | | | | | | [place], [place] | | | | | | [address] | | | +--------+ + + + [...] as of this encounter Progress Notes Interface, Website Admin In - 06/14/2006 5:08 AM PDT CLINIC [...] after the above studies. Faisal Grijalva M.D. Bag Liner, Neurology JQ:bony cc: DICK ACOSTA MD [address] [address] documented in this encounter Plan of Treatment Not on filedocumented as of this encounter Visit Diagnoses Not on filedocumented in this encounter"
--- OUTSIDE RECORDS SUMMARY | ~2019-01-07 | XMS | Encounter Summary ---
Demographics + + + | Address | [address] | | | [place] [address] | + + + | Home Phone [...] + + + | Author | [facility] | | | and [place] | + + + | Organization | [facility] | | | and [place] [...] Team Providers + +------+ + | Care Billposting Supervisor Name | Role | Phone | [...] | | 2015 | | [place] | [address] | level (HCC) | | | | ENDOCRINOLOGY [address] | [address] | | | | | [address] | [place] [address] | | | | | [address] [place] | [phone] | | | | | [address] | | | | | | [phone] | | | +--------+ + + + [...] | CORE | | | | [place] [address] | | LABORATORY | | | | [...] | [address] | [place] [address] | [phone] | | [facility] (I) | | [...] | (I) | | | | [place] [address] | | | | + + + + + + + + | Specimen | + + | Blood specimen | | (specimen) | + + + + + + + | Performing | Address | City/State/Zipcode | Phone Number | | Organization | | | | + + + + + | [facility] [place] | [address] [facility] | [place] [address] | [phone] | | [facility] (I) | | [...] | | (I) | | | | [facility].Performed by | | | | | | [facility] [address] | | | | | | [place] | | | | | | | [...] | [address] | [place] [address] | [phone] | | [facility] (I) | | | | + + + + + documented in this encounter Visit Diagnoses + + | Diagnosis | + + | Low serum cortisol level (HCC) Glucocorticoid deficiency | + + documented in this encounter"
--- OUTSIDE RECORDS SUMMARY | ~2019-01-07 | XMS | Clinical Summary ---
Demographics + + + | Address | [address] | | | [place] [address] | + + + | Home Phone | | + + + | Preferred Language | Unknown | + + + | Marital Status | Single | + + + | Hindu Affiliation | Unknown | + + + | Race | Unknown | + + + | Ethnic Group | Unknown | + + + Author + + + | Author | [facility] | | | and [place] | + + + | Organization | [facility] | | | and [place] [...] Team Providers + +------+ + | Care Nutritional Chemist Name | Role | Phone | + +------+ + | Timothy Elmore | PCP | | + +------+ + Allergies + + + + + + | Active Allergy | Reactions | Severity | Noted | Comments | | | | | Date | | + + + + + + | Amitriptyline | Other (See Comments) | | 02/24/19 | Patient states | | | | | 16 | "can't function at | | | | | | all" | + + + + + + | Atenolol | Rash | Low | 08/10/19 | | | | | | 15 | | + + + + + + | Clonidine | Itching | | 06/14/19 | | | | | | 16 | | + + + + + + | Ibuprofen | Hives | High | 08/10/19 | | | | | | 15 | | + + + + + + | Nsaids | Other (See Comments) | High | 08/10/19 | Gastritis | | | | | 15 | | + + + + + + Medications + + + +---------+------+------+-------+ | Medication | Sig | Dispensed | Refills | Star | End | Statu | | | | | | t | Date | s | | | | | | Date | | | + + + +---------+------+------+-------+ | omeprazole | Take 20 mg by mouth | | 0 | 05/1 | | Activ | | (PRILOSEC) 20 mg | every morning | | | 6/20 | | e | | capsule | (before breakfast). | | | 17 | | | + + + +---------+------+------+-------+ | gabapentin | Take 1,200 mg by | | 0 | 06/0 | | Activ | | (NEURONTIN) 600 MG | mouth 3 times daily. | | | 5/20 | | e | | tablet | | | | 17 | | | + + + +---------+------+------+-------+ | fluticasone | 1 spray by Nasal | | 0 | 05/2 | | Activ | | (FLONASE) 50 | route Daily. | | | 8/20 | | e | | mcg/nasal spray | | | | 17 | | | + + + +---------+------+------+-------+ | loperamide | Take 4 mg by mouth 4 | | 0 | 05/2 | | Activ | | (IMODIUM) 2 mg | times daily as | | | 3/20 | | e | | capsule | needed for Diarrhea. | | | 17 | | | + + + +---------+------+------+-------+ | FLOVENT HFA 220 | Inhale 1 puff into | | 0 | 05/0 | | Activ | | MCG/ACT inhaler | the lungs 2 times | | | 5/20 | | e | | | daily. | | | 17 | | | + + + +---------+------+------+-------+ | acyclovir | Take 400 mg by mouth | | 0 | 06/0 | | Activ | | (ZOVIRAX) 800 mg | 2 times daily. | | | 2/20 | | e | | tablet | | | | 17 | | | + + + +---------+------+------+-------+ | hydrOXYzine | Take 25 mg by mouth | | 0 | 05/2 | | Activ | | pamoate (VISTARIL) | 4 times daily. | | | 5/20 | | e | | 25 mg capsule | | | | 17 | | | + + + +---------+------+------+-------+ | FLUoxetine | Take 40 mg by mouth | | 0 | 05/0 | | Activ | | (PROZAC) 40 MG | 2 times daily. | | | 3/20 | | e | | capsule | | | | 17 | | | + + + +---------+------+------+-------+ | acetaminophen | Take 2 tablets by | 120 | 0 | 06/2 | | Activ | | (TYLENOL) 325 mg | mouth every 6 hours | tablet | | 0/20 | | e | | tablet | as needed for Pain. 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 | + + + | Nicotine dependence | 08/07/2016 | + + + | Hypertensive emergency | 08/04/2016 | + + + | Breast implant rupture, initial encounter | 09/21/2015 | + + + + + | Overview: left | + + + + + | Peroneal neuropathy at knee, left | 02/24/2015 | + + + | Pancreatic insufficiency | 12/14/2014 | + + + | Diarrhea | 12/14/2014 | + + + | Loss of appetite | 12/14/2014 | + + + | Weight loss | 12/14/2014 | + + + | Dental caries | 08/18/2014 | + + + | Depression | 08/18/2014 | + + + | Hypertension | 08/18/2014 | + + + Family History + + +------+ + | Medical History | Relation | Name | Comments | + + +------+ + | Cancer | Mother | | lung cancer | + + +------+ + + +------+ + + | Relation | Name | Status | Comments | + +------+ + + | Father | | | | + +------+ + + | Mother | | | | + +------+ + + Social History + + + [...] | + + Last Filed Vital Signs + + + [...] | | + + + + + Plan of Treatment + + + + + | Health Maintenance | Due Date | Last Done | Comments | + + + + + | Vaccine: | | | | | Dtap/Tdap/Td (1 - | 3 | | | | Tdap) | | | | + + + + + | Vaccine: Zoster (1 | | | | | of 2) | 4 | | | + + + + + | Breast Cancer | | | | | Screening | 9 | | | + + + + + | Vaccine: | | | | | Pneumococcal 65+ (1 | 9 | | | | of 2 - PCV13) | | | | + + + + + | Vaccine: Influenza | | | | | (#1) | 9 | | | + + + + + Results Not on filefrom Last 3 Months Insurance + +--------+ +--------+ +---------+--------+ | Payer | Benefi | Subscriber | Effect | Phone | Address | Type | | | t Plan | ID | jared | | | | | | / | | Dates | | | | | | Group | | | | | | + +--------+ +--------+ +---------+--------+ | MEDICARE | MEDICA | [id number] | 03/21/18 | [phone] | | Medica | | | RE | | 96-Pre | 5 | | re | | | PART A | | sent | | | | | | AND B | | | | | | + +--------+ +--------+ +---------+--------+ | [place] | MEDICA | [id number] | | [phone] | | Medica | | | ID | | [id number]-[id number] | 2 | | id | | | [place] | | esent | | | | + +--------+ +--------+ +---------+--------+ + +--------+ +--------+ + + | Guarantor Name | Accoun | Relation to | Date | Phone | Billing Address | | | t Type | Patient | of | | | | | | | | | | + +--------+ +--------+ + + | Litzy Evans | Person | Self [birth year] | [address] | | | al/Fam | | 4 | [phone] | [place] [address] | | | anastasiya | | | 7 (Home) | | + +--------+ +--------+ + + Advance Directives + + + + + | Type | Date Recorded | Patient | Explanation | | | | Diathermy Equipment Repairer | | + + + + + | Power of | | | | | Lithopone Mill Worker | | | | + + + + + | Advance | 07/23/2015 3:23 | | | | Directive | AM | | | + + + + + + + + + + | Code Status | Date | Date | Comments | | | Activated | Inactivated | | + + + + + | Full Code | 08/04/2016 | 08/07/2016 | | | | 6:08 PM | 3:02 PM | | + + + + +
--- OUTSIDE RECORDS SUMMARY | ~2019-01-07 | XMS | Encounter Summary ---
Demographics + + + | Address | [address] | | | [place] [address] | + + + | Home Phone [...] + | Author | [facility] | | | and [place] | + + + | Organization | [facility] | | | and [...] Team Providers + +------+ + | Care Boat Carpenter Name | Role | Phone | [...] | [address] | [address] | pulmonary disease, | | | | [place] | [place] | unspecified COPD | | | | [address] | [address] | type (HCC) (Primary | | | | [phone] | [phone] | Dx) | +--------+ + + + [...]
--- OUTSIDE RECORDS SUMMARY | ~2019-01-07 | XMS | Encounter Summary ---
Demographics + + + | Address | [address] | | | [place] [address] | + + + | Home Phone [...] [place], | | | | | [place] [address] | | + + + + + Care Team Providers + +------+ + | Care Customer Experience Retail Clerk Name | Role | Phone | [...]
--- OUTSIDE RECORDS SUMMARY | ~2019-01-07 | XMS | Encounter Summary ---
Demographics + + + | Address | [address] | | | [place] [address] | + + + | Home Phone [...] [place], | | | | | [place] [address] | | + + + + + Care Team Providers + +------+ + | Care Physician Practice Market Manager Name | Role | Phone | [...] [address] | | | | | | [place] | | | | | | [address] | | | +--------+ + + + [...] as of this encounter Progress Notes Interface, Semiconductor Lab Technician In - 06/14/2006 5:08 AM PDT [address] [address] [facility] December 25, 1993 LEILANI ACOSTA MD [address] [place] [address] RE:Litzy Evans MR#:[id number] Acosta: Thank you for referring Litzy Evans to the [facility] for evaluation. I found her [...] your kind referral. Sincerely, Faisal Grijalva M.D. Imagery Analyst, Neurology JFQ/mrd December 26, 1995 documented in this encounter Plan of Treatment Not on filedocumented as of this encounter Visit Diagnoses Not on filedocumented in this encounter"
--- OUTSIDE RECORDS SUMMARY | ~2019-01-07 | XMS | Encounter Summary ---
Demographics + + + | Address | [address] | | | [place] [address] | + + + | Home Phone [...] Author + + + | Author | [facility] | + + + | Organization | [facility] | + + + | Address | Unknown | + + + | Phone | Unavailable | + + + Support + + + + + | Name | Relationship | Address | Phone | + + + + + | Zaida Putnam | ECON | [address] | | | | | [place], | | | | | [place] [address] | | + + + + + Care Team Providers + +------+ + | Care Vice President For Instruction Name | Role | Phone | + [...] as of this encounter Progress Notes Interface, Bat Boy/Girl In - 02/14/2006 5:12 AM PSTINIC DATE: 03/21/1998 INTERNAL MEDICINE CLINIC SUBJECTIVE: Ms. Evans comes in today for follow up of her chronic pain. She has been in a flare for the last two weeks, since her mother became ill after having a fall precipitating a fractured humerus. 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 Wallace Szymanski. Hui Milton M.D. [facility] Wallace Szymanski M.D. [facility] MS/hhk d ocumented in this encounter Plan of Treatment Not on filedocumented as of this encounter Visit Diagnoses Not on filedocumented in this encounter"
--- OUTSIDE RECORDS SUMMARY | ~2019-01-07 | XMS | Encounter Summary ---
Demographics + + + | Address | [address] | | | [place] [address] | + + + | Home Phone [...] [place], | | | | | [place] [address] | | + + + + + Care Team Providers + +------+ + | Care Lithographic Press Operator Apprentice Name | Role | Phone | + +------+ + PCP | Unavailable | + +------+ + Encounter Details +--------+ + + + + | Date | Type | Department | Care Team | Description | +--------+ + + + + | 12/27/ | Office | [facility] | Note, [...] as of this encounter Progress Notes Interface, Separating Machine Operator In - 02/23/2006 5:02 AM PSTCLINIC DATE: 12/27/1997 INTERNAL MEDICINE CLINIC SUBJECTIVE: Ms. Evans is a [age] year old female with significant past psychiatric history of obsessive-compulsive disorder diagnosed four years ago, and bipolar disorder diagnosed several months ago, and a history of chronic pain syndrome including low back pain, fibromyalgia and headaches requiring use of opiates. Patient was referred to clinic for input on appropriate anti-depressant medications concerning patient's obsessive-compulsive disorder. Patient states she was diagnosed approximately four years ago when she read about an [facility] clinic, and presented by self-referral to the Outpatient [facility] at which time she went under a full psychology evaluation. She relates that most of her obsessive compulsive disorder symptoms are related to her cleaning rituals, regarding having to wash her face and hands and do household cleaning. She states she has had multiple medication failures on psychiatric medications, and the only that has seemed to help has been Zoloft. She is currently not taking Zoloft because she ran out of her medication in September when she moved from [place] to [place] and switched providers. Patient states that since being off Zoloft, she has noticed an increase in her emotional ability, and that she gets easily angered towards her friend/employer [employer]. She self-describes her mood as approximately 5/10. She states that the Zoloft does not really increase her mood; however, it makes her feel more stable. She admits to sleep problems, mostly secondary to pain, for which she takes trazodone with some success. Patient denies any outside problems or anhedonia. 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 Patient denies any suicidal or homicidal ideation. Patient was seen by Dr. Browning in [place], [place], at which time she was given the diagnosis of bipolar disorder; however, attempts to use mood-stabilizing medications were unsuccessful. Patient reports intolerance. FAMILY HISTORY: Consists of father, secondary to a gunshot while . She states that her father was bipolar per her mother's history, but untreated. Her mother was described as having depression and of unstated reasons while she was in high school. Patient has multiple pain symptoms including fibromyalgia and chronic low back pain. She has headaches in which she has used opiates in the past. She states that Zoloft does not help her pain. OBJECTIVE: MENTAL STATUS: Patient was alert and oriented. She maintained good eye contact with her interviewer. She was dressed appropriately and well-groomed; however, her hands did not appear to be red or rough from repeated washing. Patient's mood was described as moderately depressed. Affect was labile to jovial. Speech was fluent. Process was congruent. No anomalies of content were identifiable. Cognition, judgement and insight were not formally tested. ASSESSMENT: [age] year old female with multiple semantic and psychological complaints with self-reported success with Zoloft at 100 milligrams q. day. PLAN: We will restart Zoloft 100 milligrams q. day. She is to continue trazodone 25 milligrams q.h.s. as tolerated, and adjust dose as needed. Recommended group therapy. Patient is covered through [facility] and she will investigate possible group therapy at the [facility] system. Patient was seen and interviewed with Dr. Anabelle Garcia. Frederic Koch M.D. Resident, Internal Medicine Anabelle Garcia M.D. Bottom Liner, Psychiatry ELDA/ruby d ocumented in this encounter Plan of Treatment Not on filedocumented as of this encounter Visit Diagnoses Not on filedocumented in this encounter"
--- OUTSIDE RECORDS SUMMARY | ~2019-01-07 | XMS | Encounter Summary ---
Demographics + + + | Address | [address] | | | [place] [address] | + + + | Home Phone [...] [place], | | | | | [place] [address] | | + + + + + Care Team Providers + +------+ + | Care Radioisotope Production Operator Name | Role | Phone | [...] as of this encounter Progress Notes Interface, Management Professor In - 02/07/2006 1:09 AM PSTCLINIC DATE: [...] or throat itching. She has been taking kwji-mly-nwplvzn pseudoephedrine, but has not noted much relief. [...] Ms. Evans is planning to move to [place]. We will forward her records as soon [...]
--- OUTSIDE RECORDS SUMMARY | ~2019-01-07 | XMS | Encounter Summary ---
Demographics + + + | Address | [address] | | | [place] [address] | + + + | Home Phone [...] Author + + + | Author | [facility] | + + + | Organization | [facility] | + + + | Address | Unknown | + + + | Phone | Unavailable | + + + Support + + + + + | Name | Relationship | Address | Phone | + + + + + | Zaida Putnam | ECON | [address] | | | | | [place], | | | | | [place] [address] | | + + + + + Care Team Providers + +------+ + | Care Hose Tender Name | Role | Phone | + [...] as of this encounter Progress Notes Interface, System Sales Consultant In - 02/28/2006 3:08 AM PST [facility] Account No. PROGRESS RECORD Name Litzy Evans Birthdate 1955 Date Probl Time em FORMAT: PROBLEM NUMBER and TITLE: S=Subjective Number O=Objective A=Analysis P=Plans CLINIC DATE: 11/05/1997 November 05, 1997 OLEG PUGH MD [address] [facility] [address] RE: Litzy EVANS. MR#: [id number] : [address] Pugh: I had the pleasure of seeing your patient, Ms. Litzy Evans, at [facility] today for evaluation of her chronic pain problem. Ms. Evans tells me that she has moved to [place] within the last week and plans to establish care in the month of November with Dr. Kaleb Velásquez here at [facility]. Therefore, I will send you [...] prior to my arrival at [facility]. She states that she has [...] tried a variety of medications including Tegretol, [place], Amitriptyline, and other antidepressants. CURRENT MEDICATIONS: 1. [...] has recently ended. She has moved to [place] and is now living with an ex-'s mother. 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 She smokes one pack of cigarettes a [...] also with some difficulty. Romberg is negative. Nhtypz-mgvc-udarxd is normal. On examination of her chest [...] normal limits." IMPRESSION: 1. Fibromyalgia by 1990 [place] [employer] criteria. 2. Significant psychiatric [...] from Internal Medicine here at [facility], would be for her to [...] the 1995 intractable pain act here in [place]. I agreed with Ms. Evans that should she establish care with Dr. Velásquez here at [facility], I would be happy to discuss her care with him at that point. In the meantime, I have nothing additional or specific to offer for Ms. Evans' care. Thank you very much for your referral of Ms. Evans to the [facility] here at [facility]. If you have any questions or concerns, please do not hesitate to give me a call at [phone]. Monroe Pruitt M.D. Studio Designer, Anesthesiology Director of [facility] BRS:mau cc: Kaleb Velásquez M.D. Studio Designer, Medicine Richie Her M.D. Studio Designer, Department of Orthopedics and Rehabilitation nterface, System Sales Consultant In - 02/28/2006 3:08 AM PSTCLINIC DATE: 11/05/97 PHONE CALL: Litzy called today requesting more Vicodin. She wanted it called to [facility]. I spoke with Dr. Her in regard to this and he declined the request. I called the patient at 16:15 and left a message to that effect. The phone number is [phone]. Lindsay Romeo R.N. Orthopedics HALLIE/emily P cc: documente d in this encounter Plan of Treatment Not on filedocumented as of this encounter Visit Diagnoses Not on filedocumented in this encounter
--- OUTSIDE RECORDS SUMMARY | ~2019-01-07 | XMS | Encounter Summary ---
Demographics + + + | Address | [address] | | | [place] [address] | + + + | Home Phone [...] [place], | | | | | [place] [address] | | + + + + + Care Team Providers + +------+ + | Care Occupational Therapy Director Name | Role | Phone | + +------+ + PCP | Unavailable | + +------+ + Encounter Details +--------+ + + + + | Date | Type | Department | Care Team | Description | +--------+ + + + + | 12/15/ | Office | [facility] | Note, [...] as of this encounter Progress Notes Interface, Printing Engineer In - 02/23/2006 5:02 AM PSTCLINIC DATE: 12/15/1997 INTERNAL MEDICINE CLINIC PROBLEM LIST: 1. Chronic low back pain. 2. Fibromyalgia. 3. Headaches. 4. Manic depression. CURRENT MEDICATIONS: The patient discontinued taking Zoloft, trazodone and Premarin. SUBJECTIVE: Ms. Evans presents today for management of her chronic pain. She states that she continues to have pain in multiple places throughout her body including her neck, lower back and all four extremities. In addition, she has been dealing with right maxillary pain since a root canal for an abscessed tooth. She is currently taking amoxicillin for that problem. She was on Vicodin briefly when the tooth had not yet been repaired. She states she did feel better as far as her other pain syndromes are concerned when she was taking the Vicodin. She states her left greater trochanteric bursitis has resolved by approximately 75% since the corticosteroid injection on her last visit. PHYSICAL EXAMINATION: Weight 163, blood pressure 146/84, heart rate 96. ASSESSMENT AND PLAN: Chronic pain syndromes including musculoskeletal low back, fibromyalgia, tension headaches. Ms. Evans agreed to be put on a trial of blinded medication. As part of our agreement she will take this medication without knowledge of what she is taking. She is to maintain a pain diary as well as attend counseling and psychotherapy sessions with Dr. Anabelle Garcia of the Medical [facility]. She is being started on 5 mg of methadone elixir three times a day. She is to return to the clinic in two weeks for followup. I have asked her to discontinue Flexeril which she was using intermittently at home. I have also asked her to start taking her Zoloft, trazodone and Premarin as she normally would. Ms. Evans' interview, physical exam and treatment plan were thoroughly discussed with Dr. Wallace Szymanski. Hui Milton M.D. Resident, Internal Medicine Wallace Szymanski M.D. Terrazzo Worker Apprentice, Internal Medicine TORI/JENAE/estrellita d ocumented in this encounter Plan of Treatment Not on filedocumented as of this encounter Visit Diagnoses Not on filedocumented in this encounter"
--- OUTSIDE RECORDS SUMMARY | ~2019-01-07 | XMS | Encounter Summary ---
Demographics + + + | Address | [address] | | | [place] [address] | + + + | Home Phone [...] Author | [facility] | | | and [place] | + + + | Organization | [facility] | | | and [...] Team Providers + +------+ + | Care Distribution Center Manager Name | Role | Phone | [...] | | 2015 | | [place] | [address] | level (HCC) | | | | ENDOCRINOLOGY 1330 | [address] | | | | | [address] | [place] [address] | | | | | [address] [place] | [phone] | | | | | [address] | | | | | | [phone] | | | +--------+ + + + [...] | CORE | | | | [place] [address] | | LABORATORY | | | | [...] | [address] | [place] [address] | [phone] | | [facility] (I) | | [...] (I) | | | | [place] [address] | | | | + + + + + + + + | Specimen | + + | Blood specimen | | (specimen) | + + + + + + + | Performing | Address | City/State/Zipcode | Phone Number | | Organization | | | | + + + + + | [facility] | [address] | [place] [address] | [phone] | | C[facility] LAB[facility]ORY (I) | | [...] | | (I) | | | | [facility].Performed by | | | | | | [facility] [address] | | | | | | [place] | | | | | | | [...] | [address] | [place] [address] | [phone] | | [facility] (I) | | | | + + + + + documented in this encounter Visit Diagnoses + + | Diagnosis | + + | Low serum cortisol level (HCC) Glucocorticoid deficiency | + + documented in this encounter"
--- OUTSIDE RECORDS SUMMARY | ~2019-01-07 | XMS | Encounter Summary ---
Demographics + + + | Address | [address] | | | [place] [address] | + + + | Home Phone [...] [place], | | | | | [place] [address] | | + + + + + Care Team Providers + +------+ + | Care Child Development Director Name | Role | Phone | [...] as of this encounter Progress Notes Interface, Tape Keller Operator In - 02/14/2006 5:12 AM PSTCLINIC [...]
--- OUTSIDE RECORDS SUMMARY | ~2019-01-07 | XMS | Encounter Summary ---
Demographics + + + | Address | [address] | | | [place] [address] | + + + | Home Phone [...] Author | [facility] | | | and [place] | + + + | Organization | [facility] [...] Team Providers + +------+ + | Care Acute Specialist Name | Role | Phone | [...] [place] | | | | | [address] | [phone] | | | | | [phone] | | | +--------+ + + + [...]
--- OUTSIDE RECORDS SUMMARY | ~2019-01-07 | XMS | Encounter Summary ---
Demographics + + + | Address | [address] | | | [place] [address] | + + + | Home Phone [...] [place], | | | | | [place] [address] | | + + + + + Care Team Providers + +------+ + | Care Bilingual Counter Sales Retail Name | Role | Phone | + [...] [id number] | | | | | | [place], [place] | | | | | | [address] | | | | | | [phone] | | | +--------+ + + + [...] + + + + + | [facility] | [address] | [place] [address] | | | PATHOLOGY | [address] [...] + + + + + | [facility] | [address] | [place] [address] | | | PATHOLOGY | [address] [...] + + + + + | [facility] | [address] | [place] [address] | | | PATHOLOGY | [address] [...] + + + + + | [facility] | [address] | [place] [address] | | | PATHOLOGY | [address] [...] + + + + + | [facility] | [address] | [place] [address] | | | PATHOLOGY | [address] [...] + + + + + | [facility] | [address] | [place] [address] | | | PATHOLOGY | [address] | | | + + + + + documented in this encounter Visit Diagnoses Not on filedocumented in this encounter"
--- OUTSIDE RECORDS SUMMARY | ~2019-01-07 | XMS | Encounter Summary ---
Demographics + + + | Address | [address] | | | [place] [address] | + + + | Home Phone [...] + + + | Author | [facility] | | | and [place] | + + + | Organization | [facility] | | [...] Providers + +------+ + | Care Electric Meter Tester Shop Name | Role | Phone | + +------+ + | Timothy Elmore | PCP | | + +------+ + Encounter Details +--------+ + + + + | Date | Type | Department | Care Team | Description | +--------+ + + + + | 08/04/ | [facility] | [facility] | Neo Pichardo MD | Hypertensive | | 2017 - | Encounter | MED CTR MED[facility] | [address] | emergency; Essential | | | | [address] | [place] | hypertension | | 08/07/ | | [place] [address] | [address] | | | 2016 | | [phone] | | | +--------+ + + + [...] were performed which did not suggest ac [place] coronary syndrome. Echocardiogram was performed which showed [...] Specialty: Family Medicine Contact information: [address] [place] [id number] Discharge Medications New Medications Details acetaminophen 325 [...] signed by: Neo Pichardo MD, 08/07/2016 12:33 [facility] documented in this enc ounter Discharge [...] Mendoza MD - 08/06/2016 8:35 AM PDT [facility] HOSPITALIST PROGRESS NOTE Patient: Oneal Evans : 1955: Age: 60 y.o. MedRec: [id number] PCP: ASHANTI Esteves Admission date: 08/04/2016 Hospital [...] as outlined above. 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 MedRec: [id number] PCP: ASHANTI Esteves Admission date: 08/04/2016 Hospital [...] This is a preliminary report provided by Evestra, CARLIE. A kevin brown report is available at [facility]. CT ABDOMEN AND PELVIS WITH CO [...] as outlined above. Neo Pichardo 08/05/2016 9:29 [facility] documented in this enc ounter Plan of [...] + | [facility] | [address] | [place] | [phone] | | [facility] | | [address] | | | - LABORATORY | | [...] | mL/min/1.73m2 | [facility] | | | [place] | RATE,ESTIMATED | | MEDICAL | | | | mL/min/1.14r4Ljxu than | | CENTER - | | [...] | | | | mg/dL | [facility] | | | | | | MEDICAL [...] [address] | [place] | [phone] | | [facility] | | [address] | | | - LABORATORY | | [...] [address] | [place] | [phone] | | [facility] | | [address] | | | - LABORATORY | | [...] | [facility] | [address] | [place] | [phone] | | [facility] | | [address] | | | - LABORATORY | | [...] [address] | [place] | [phone] | | [facility] | | [address] | | | - LABORATORY | | [...] 0.46 (L) | 0.60 - 1.30 | [facility] | | | | | mg/dL | [facility] | | | | | | MEDICAL | | | | | | CENTER - | | | | | | LABORATORY | | + + + + + + | eGFR if not | >60Comment: GLOMERULAR | >=60 | [facility] | | | | FILTRATION | mL/min/1.73m2 | [facility] | | | [place] | RATE,ESTIMATED | | MEDICAL | | | | mL/min/1.46n8Ecdz than | | CENTER - | | [...] + | [facility] | [address] | [place] | [phone] | | [facility] | | [address] | | | - LABORATORY | | [...] [address] | [place] | [phone] | | [facility] | | [address] | | | - LABORATORY | | [...] | | | FILTRATION | mL/min/1.73m2 | [facility] | | | [place] | RATE,ESTIMATED | | MEDICAL | | | | mL/min/1.96b8Dldg than | | CENTER - | | [...] | | | | | mg/dL | [facility] | | | | | | MEDICAL [...] [address] | [place] | [phone] | | [facility] | | [address] | | | - LABORATORY | | [...] [address] | [place] | [phone] | | [facility] | | [address] | | | - LABORATORY | | [...] 458 | | | [place] Patient Number [id number] Date of Study | | | 08/05/2016 Visit Number [id number] Accession | | | [id number] Referring Physician JAZLYN MORILLO Number | | | Date of 1955 Internet Security Specialist | | | GAVIN JENNINGS [facility] Age 60 year(s) | | | Interpreting ERICK DUKE | | | Spindle Maker [place] | | | MD ERICK Gender Female Nurse | | | Stress Gaming Cage Cashier Procedure Type | | | of Study [...] Volume: 55.37 ml | | | EF Fmwnsqqan48% Left | | | Ventricle Diastolic Dimension: [...] Volume: 55.37 ml | | | EF Wspyaqjbw49% | | | | | | Left [...] Number 458 | | [place] Patient Number [id number] Date of Study 08/05/2016 Visit Number | | [id number] Referring Physician JAZLYN MORILLO Number | | Date of 1955 Internet Security Specialist GAVIN JENNINGS [facility] Age | | 60 year(s) Interpreting ERICK DUKE | | Spindle Maker LEILANI SUAREZ MD Gender Female Nurse | [...] [place] Volume: 55.37 ml EF | | Zuqaibjbf49% Left Ventricle Diastolic Dimension: 5.52 cm Systolic [...] LA Volume: 55.37 ml | | EF Ehjqsqszv05% | | | | Left Ventricle | [...] [address] | [place] | [phone] | | [facility] | | [address] | | | - LABORATORY | | [...] [address] | [place] | [phone] | | [facility] | | [address] | | | - LABORATORY | | [...] [address] | [place] | [phone] | | [facility] | | [address] | | | - LABORATORY | | [...] + | [facility] | [address] | [place] | [phone] | | [facility] | | [address] | | | - LABORATORY | | [...] | | | | | | [employer] | | | | | [...] + + | Performing | Address | City/State/[facility] | Phone Number | | Organization | | | | + + + + + | [facility] | [address] | [place] | [phone] | | [facility] | | [address] | | | - LABORATORY | | [...] mL/min/1.73m2 | [facility] [address] | | | [place] | RATE,ESTIMATED | | MEDICAL | | | | mL/min/1.47f7Bylw than | | CENTER - | | [...] [address] | [place] | [phone] | | [facility] | | [address] | | | - LABORATORY | | [...] [address] | [place] | [phone] | | [facility] | | [address] | | | - LABORATORY | | [...] | | | | | | [employer] | | | | | [...] + | [facility] | [address] | [place] | [phone] | | [facility] | | [address] | | | - LABORATORY | | [...] | | | | JAMMIE ALONSO MD ([id number]) | | | | | | on [...] + | [facility] | [address] | [place] | [phone] | | [facility] | | [address] | | | - LABORATORY | | [...] | | | | JAMMIE ALONSO MD ([id number]) | | | | | | on [...] [address] | [place] | [phone] | | [facility] | | [address] | | | - LABORATORY | | [...] [address] | [place] | [phone] | | [facility] | | [address] | | | - LABORATORY | | [...] | | | | | | [employer] | | | | | [...] + | [facility] | [address] | [place] | [phone] | | [facility] | | [address] | | | - LABORATORY | | [...] [address] | [place] | [phone] | | [facility] | | [address] | | | - LABORATORY | | [...] + | [facility] | [address] | [place] | [phone] | | [facility] | | [address] | | | - LABORATORY | | [...] + | [facility] | [address] | [place] | [phone] | | [facility] | | [address] | | | - LABORATORY | | [...] | mL/min/1.73m2 | [facility] | | | [place] | RATE,ESTIMATED | | MEDICAL | | | | mL/min/1.83w6Kwjl than | | CENTER - | | [...] [address] | [place] | [phone] | | [facility] | | [address] | | | - LABORATORY | | [...] [address] | [place] | [phone] | | [facility] | | [address] | | | - LABORATORY | | [...] | | | | | | | Mikado 08/05/16 at 1130, Initial | | | [...] | | | over 4 Hours, ONCE, Mikado 08/05/16 | | | | | | [...]
--- OUTSIDE RECORDS SUMMARY | ~2019-01-07 | XMS | Encounter Summary ---
Demographics + + + | Address | [address] | | | [place] [address] | + + + | Home Phone [...] [place], | | | | | [place] [address] | | + + + + + Care Team Providers + +------+ + | Care Fiction Writer Name | Role | Phone | [...] as of this encounter Progress Notes Interface, Marketing And Outreach Coordinator In - 02/23/2006 5:02 AM PSTCLINIC DATE: [...] C: 01/10/1998 ds cc: Wallace Szymanski M.D. Rail Switch Operator, Internal Medicine Hui Milton M.D. Resident, Internal Medicine 07 5:02 AM PSTdocumented in this encounter Plan of Treatment Not on filedocumented as of this encounter Visit Diagnoses Not on filedocumented in this encounter"
--- OUTSIDE RECORDS SUMMARY | ~2019-01-07 | XMS | Encounter Summary ---
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 Moreover, she says this is an important [...] myself or from any other provider at [facility]. She has violated our contract as set forth in a previous note. She understands this. Moreover, she understands that her chart will be flagged in the [facility] system so that she cannot receive narcotics. [...]
--- OUTSIDE RECORDS SUMMARY | ~2019-01-07 | XMS | Encounter Summary ---
Demographics + + + | Address | [address] | | | [place] [address] | + + + | Home Phone [...] [place], | | | | | [place] [address] | | + + + + + Care Team Providers + +------+ + | Care Patternmaker Plaster And Plastic Name | Role | Phone | + [...] as of this encounter Progress Notes Interface, Machine Feller In - 02/09/2006 5:05 AM PSTCLINIC DATE: [...] seeking drugs at numerous medical centers throughout [facility]. 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 I contacted [facility] and [facility] in [place] (telephone # [phone] and [phone]) to warn them of her potential misuse of medication. Moreover, I am concerned because she has a prescription for MS Contin in hand which she is supposed to fill for June and I wanted to make sure they knew to confiscate that prescription and not have it filled. Lastly, I have spoken with Nelly Hamilton, our clinical director of social services, who has taken the task in hand as far as alerting Social Security and Medicare of potential fraud. Hui Milton M.D. TORI/kiah cc: Doris Maurice [facility] Internal Medicine Miranda García [facility] Internal Medicine Andria Hamilton [facility] Internal Medicine Kait Oneal [facility] Wallace Szymanski M.D. [facility] Internal Medicine 5 :05 AM PSTdocumented in this encounter Plan of Treatment Not on filedocumented as of this encounter Visit Diagnoses Not on filedocumented in this encounter"
--- OUTSIDE RECORDS SUMMARY | ~2019-01-07 | XMS | Encounter Summary ---
Demographics + + + | Address | [address] | | | [place] [address] | + + + | Home Phone [...] [facility] | | | and [place] | + + + | Organization | [facility] | | | and [place] [...] Team Providers + +------+ + | Care Radio News Writer Name | Role | Phone | [...] | 2016 | Orders | [address] | [address] | pulmonary disease, | | | | [place] | [place] | unspecified COPD | | | | [address] | [address] | type (HCC) (Primary | | | | [phone] | [phone] | Dx) | +--------+ + + + [...]
--- OUTSIDE RECORDS SUMMARY | ~2019-01-07 | XMS | Encounter Summary ---
Demographics + + + | Address | [address] | | | [place] [address] | + + + | Home Phone [...] [place], | | | | | [place] [address] | | + + + + + Care Team Providers + +------+ + | Care Cephalometric Tracer Name | Role | Phone | + [...] of this encounter Progress Notes Interface, Manager Business In - 02/28/2006 3:08 AM PSTCLINIC DATE: [...] recently by a family medicine service in [place], [place]. 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 Richie Her M.D. Director College, Department of Orthopedics and Rehabilitation DANELLE/emily P documented in this encounter Plan of Treatment Not on filedocumented as of this encounter Visit Diagnoses Not on filedocumented in this encounter"
--- OUTSIDE RECORDS SUMMARY | ~2019-01-07 | XMS | Encounter Summary ---
Demographics + + + | Address | [address] | | | [place] [address] | + + + | Home Phone [...] Author + + + | Author | [facility] | + + + | Organization | [facility] | + + + | Address | Unknown | + + + | Phone | Unavailable | + + + Support + + + + + | Name | Relationship | Address | Phone | + + + + + | Zaida Putnam | ECON | [address] | | | | | [place], | | | | | [place] [address] | | + + + + + Care Team Providers + +------+ + | Care Hooker Operator Name | Role | Phone | [...] as of this encounter Progress Notes Interface, Dimension Stone Quarry Supervisor In - 02/23/2006 5:02 AM PSTCLINIC DATE: [...] C: 01/10/1998 ds cc: Wallace Szymanski M.D. Salvage Mend Worker, Internal Medicine Hui Milton M.D. Resident, Internal Medicine 07 5:02 AM PSTdocumented in this encounter Plan of Treatment Not on filedocumented as of this encounter Visit Diagnoses Not on filedocumented in this encounter"
--- OUTSIDE RECORDS SUMMARY | ~2019-01-07 | XMS | Encounter Summary ---
Demographics + + + | Address | [address] | | | [place] [address] | + + + | Home Phone | | + + + | Preferred Language | Unknown | + + + | Marital Status | Single | + + + | Pentecostal Affiliation | Unknown | + + + [...] [place], | | | | | [place] [address] | | + + + + + Care Team Providers + +------+ + | Care Scalper Operator Name | Role | Phone | [...]
--- OUTSIDE RECORDS SUMMARY | ~2019-01-07 | XMS | Encounter Summary ---
Demographics + + + | Address | [address] | | | [place] [address] | + + + | Home Phone [...] | 12/23/ | Clinical | [facility] [address] | | Elevated cortisol | | 2015 | Support | [place] | | level (HCC) (Primary | | | | ENDOCRINOLOGY 1330 | | Dx); Decreased | | | | [address] [place] | | cortisol level ([facility]) | | | | [address] [place] | | | | | | [address] | | | | | | [phone] | | | +--------+ + + + [...] | | Right | | Intramuscular, ONCE, [facility] 12/23/14 | | AM PST | [...]
--- OUTSIDE RECORDS SUMMARY | ~2019-01-07 | XMS | Encounter Summary ---
Demographics + + + | Address | [address] | | | [place] [address] | + + + | Home Phone [...] | Author | [facility] | | | and [place] | + + + | Organization | [facility] | | | and [place] [...] Team Providers + +------+ + | Care Bessemer Bottom Maker Name | Role | Phone | [...] + | 08/09/ | Telephone | [facility] | Tapan Bragg | Appointment (today's | | 2015 | | [facility] | MD Felisa [address] | appt) | | | | [address] [facility] | [address] [place], | | | | | [address] [place] | [place] | | | | | [address] | [phone] | | | | | [phone] | | | +--------+ + + + [...]
--- OUTSIDE RECORDS SUMMARY | ~2019-01-07 | XMS | Encounter Summary ---
Demographics + + + | Address | [address] | | | [place] [address] | + + + | Home Phone [...] [place], | | | | | [place] [address] | | + + + + + Care Team Providers + +------+ + | Care Enhanced Environmental Operator Name | Role | Phone | + +------+ + PCP | Unavailable | + +------+ + Encounter Details +--------+ + + + + | Date | Type | Department | Care Team | Description | +--------+ + + + + | 05/13/ | Results | | Other, Faculty | | | 1998 | Only | | [phone] | | +--------+ + + + + [...] | + +---------+ + + | [facility] DEPARTMENT OF | | | | | RADIOLOGY | | | | + +---------+ + + documented in this encounter Visit Diagnoses Not on filedocumented in this encounter"
--- OUTSIDE RECORDS SUMMARY | ~2019-01-07 | XMS | Encounter Summary ---
Demographics + + + | Address | [address] | | | [place] [address] | + + + | Home Phone [...] [place], | | | | | [place] [address] | | + + + + + Care Team Providers + +------+ + | Care Costume Maker Name | Role | Phone | [...] as of this encounter Progress Notes Interface, Lead Solutions Architect In - 02/14/2006 5:12 AM PSTCLINIC DATE: [...]
--- OUTSIDE RECORDS SUMMARY | ~2019-01-07 | XMS | Encounter Summary ---
Demographics + + + | Address | [address] | | | [place] [address] | + + + | Home Phone [...] [place], | | | | | [place] [address] | | + + + + + Care Team Providers + +------+ + | Care Steel Plate Caulker Name | Role | Phone | + +------+ + PCP | Unavailable | + +------+ + Encounter Details +--------+ + + + + | Date | Type | Department | Care Team | Description | +--------+ + + + + | 09/26/ | Results | | Other, Faculty | | | 1993 | Only | | [phone] | | +--------+ + + + + [...]
--- OUTSIDE RECORDS SUMMARY | ~2019-01-07 | XMS | Encounter Summary ---
Demographics + + + | Address | [address] | | | [place] [address] | + + + | Home Phone [...] + + + + + | Zaida Putanm | ECON | [address] | | | | | [place], | | | | | [place] [address] | | + + + + + Care Team Providers + +------+ + | Care Manager Cardiovascular Name | Role | Phone | + [...] CARLOS Valdez | | | | | [address] | [place], [place] | | | | | Vernell Correa Mailcode: | [id number] | | | | | [id number] Outpatient | [phone] | | | | | Clinic Building | | | | | | [place], [place] | | | | | | [address] | | | | | | [phone] | | | +--------+ + + + [...] + | [facility] DEPARTMENT | | | | | RADIOLOGY | | | | + +---------+ + + documented in this encounter Visit Diagnoses Not on filedocumented in this encounter"
--- OUTSIDE RECORDS SUMMARY | ~2019-01-07 | XMS | Encounter Summary ---
Demographics + + + | Address | [address] | | | [place] [address] | + + + | Home Phone [...] [place], | | | | | [place] [address] | | + + + + + Care Team Providers + +------+ + | Care Assistant Quality Manager Name | Role | Phone | + +------+ + PCP | Unavailable | + +------+ + Encounter Details +--------+ + + + + | Date | Type | Department | Care Team | Description | +--------+ + + + + | 08/14/ | Office | General Internal | Note, Outpatient | Progress Note | | 1994 | Visit-Trans | Medicine [address] | Clinic | | | | [address] | [address] | | | | | | Mailcode: L475 | | | | | | Outpatient Clinic | | | | | | [address] | | | | | | [place], [place] | | | | | | [address] | | | | | | [phone] | | | +--------+ + + + [...] as of this encounter Progress Notes Interface, Carport Erector In - 06/05/2006 1:00 AM PDT CLINIC [...] Ms. Evans remains quite active with her christian organization oand is noticing that she has [...] outlets of her anger. John Mulligan M.D. Per Diem Rn, Anesthesiology Director, Pain Management Services HUI/fernando documented in this encounter Plan of Treatment Not on filedocumented as of this encounter Visit Diagnoses Not on filedocumented in this encounter"
--- OUTSIDE RECORDS SUMMARY | ~2019-01-07 | XMS | Encounter Summary ---
Demographics + + + | Address | [address] | | | [place] [address] | + + + | Home Phone [...] + | Author | [facility] | | | and [place] | + + + | Organization | [facility] | | | and [place] [...] Team Providers + +------+ + | Care Drill Sharpener Operator Name | Role | Phone | [...] | | [address] | [place] [address] | | | | | [address] [place] | [phone] | | | | | [address] | | | | | | [phone] | | | +--------+ + + + [...]
--- OUTSIDE RECORDS SUMMARY | ~2019-01-07 | XMS | Encounter Summary ---
Demographics + + + | Address | [address] | | | [place] [address] | + + + | Home Phone [...] | Author | [facility] | | | and [place] | + + + | Organization | [facility] | | | and [place] [...] Team Providers + +------+ + | Care Epic Analyst Name | Role | Phone | [...] + | 06/15/ | Telephone | [facility] | Jack[place], | Appointment (Pain in | | 2016 | | [facility] | MD [address] | Left leg -- See | | | | [address] | comment) | | | | [address] | [place] | | | | | [address] | [phone] | | | | | [phone] | | | +--------+ + + + [...]
--- OUTSIDE RECORDS SUMMARY | ~2019-01-07 | XMS | Encounter Summary ---
Demographics + + + | Address | [address] | | | [place] [address] | + + + | Home Phone [...] [place], | | | | | [place] [address] | | + + + + + Care Team Providers + +------+ + | Care Customer Servicer Name | Role | Phone | + [...] as of this encounter Progress Notes Interface, Mission Manager In - 02/23/2006 5:02 AM PSTCLINIC DATE: [...] years ago when she read about an [facility] clinic, and presented by self-referral to the [...] medication in September when she moved from [place] to [place] and switched providers. Patient states that since [...] Patient was seen by Dr. Browning in [place], [place], at which time she was given [...] Recommended group therapy. Patient is covered through [facility] and she will investigate possible group therapy at the [facility] system. Patient was seen and interviewed with Dr. Anabelle Garcia. Frederic Koch M.D. Resident, Internal Medicine Anabelle Garcia M.D. Senior Project Coordinator, Psychiatry ELDA/ruby d ocumented in this encounter Plan of Treatment Not on filedocumented as of this encounter Visit Diagnoses Not on filedocumented in this encounter"
--- OUTSIDE RECORDS SUMMARY | ~2019-01-07 | XMS | Encounter Summary ---
Demographics + + + | Address | [address] | | | [place] [address] | + + + | Home Phone [...] [place], | | | | | [place] [address] | | + + + + + Care Team Providers + +------+ + | Care Boat Dispatcher Name | Role | Phone | [...] as of this encounter Progress Notes Interface, Mold Yard Supervisor In - 02/21/2006 3:06 AM PSTCLINIC DATE: [...] M.D. Resident, Internal Medicine Wallace Szymanski M.D. Machine Cloth Measurer, Internal Medicine TORI/niles d ocumented in this encounter Plan of Treatment Not on filedocumented as of this encounter Visit Diagnoses Not on filedocumented in this encounter"
--- OUTSIDE RECORDS SUMMARY | ~2019-01-07 | XMS | Encounter Summary ---
Demographics + + + | Address | [address] | | | [place] [address] | + + + | Home Phone [...] + + | Author | [facility] | + + + | Organization | [facility] | + + + | Address | Unknown | + + + | Phone | Unavailable | + + + Support + + + + + | Name | Relationship | Address | Phone | + + + + + | Zaida Putnam | ECON | [address] | | | | | [place], | | | | | [place] [address] | | + + + + + Care Team Providers + +------+ + | Care Photographic Equipment Mechanic Name | Role | Phone [...] as of this encounter Progress Notes Interface, Rock Wool Insulator In - 02/21/2006 3:06 AM PSTCLINIC DATE: [...] M.D. Resident, Internal Medicine Wallace Szymanski M.D. Mining Support Worker, Internal Medicine TORI/joshua d ocumented in this encounter Plan of Treatment Not on filedocumented as of this encounter Visit Diagnoses Not on filedocumented in this encounter"
--- OUTSIDE RECORDS SUMMARY | ~2019-01-07 | XMS | Encounter Summary ---
Demographics + + + | Address | [address] | | | [place] [address] | + + + | Home Phone [...] [place], | | | | | [place] [address] | | + + + + + Care Team Providers + +------+ + | Care Single Corner Cutter Name | Role | Phone | [...] of this encounter Progress Notes Interface, Paper Cone Grader In - 02/09/2006 5:05 AM PSTCLINIC DATE: [...] seeking drugs at numerous medical centers throughout [facility] and [facility]. 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 I have also contacted Kait Oenal's office and the [facility] pharmacy to have a warning screen appear, at least within [facility]. I contacted [facility] and [facility] in [place] (telephone # [phone] and [phone] respectively) to warn them of her potential misuse of medication. Moreover, I am concerned because she has a prescription for MS Contin in hand which she is supposed to fill for June and I wanted to make sure they knew to confiscate that prescription and not have it filled. Lastly, I have spoken with Nelly Hamilton, our clinical sexual assault social worker, who has taken the task in hand as far as alerting Social Security and Medicare of potential fraud. Hui Milton M.D. TORI/kiah cc: Doris Maurice [facility] Internal Medicine Miranda García [facility] Internal Medicine Andria Hamilton [facility] Internal Medicine [facility] Wallace Szymanski M.D. [facility] Internal Medicine 5 :05 AM PSTdocumented in this encounter Plan of Treatment Not on filedocumented as of this encounter Visit Diagnoses Not on filedocumented in this encounter"
--- OUTSIDE RECORDS SUMMARY | ~2019-01-07 | XMS | Encounter Summary ---
Demographics + + + | Address | [address] | | | [place] [address] | + + + | Home Phone [...] [place], | | | | | [place] [address] | | + + + + + Care Team Providers + +------+ + | Care Manufacturing Laborer Name | Role | Phone | [...]
--- OUTSIDE RECORDS SUMMARY | ~2019-01-07 | XMS | Encounter Summary ---
Demographics + + + | Address | [address] | | | [place] [address] | + + + | Home Phone [...] [place], | | | | | [place] [address] | | + + + + + Care Team Providers + +------+ + | Care Cycle Director Name | Role | Phone | [...] [address] | | | | | | [place] | | | | | | [address] | | | +--------+ + + + [...] as of this encounter Progress Notes Interface, Materials Mgmt Tech In - 06/14/2006 5:08 AM PDT [address] [address] [facility] December 25, 1995 LEILANI ACOSTA MD [address] [place] [address] RE:Litzy [place] MR#:[id number] Acosta: Thank you for referring Litzy Evans to the [facility] Neurology Clinic for evaluation. I found [...] your kind referral. Sincerely, Faisal Grijalva M.D. Frame Gate Mortiser Operator, Neurology JFQ/mrd December 26[birth year] 1993 documented in this encounter Plan of Treatment Not on filedocumented as of this encounter Visit Diagnoses Not on filedocumented in this encounter"
--- OUTSIDE RECORDS SUMMARY | ~2019-01-07 | XMS | Encounter Summary ---
Demographics + + + | Address | [address] | | | [place] [address] | + + + | Home Phone [...] [place], | | | | | [place] [address] | | + + + + + Care Team Providers + +------+ + | Care Bobtail Driver Name | Role | Phone | [...] [id number] | | | | | | [place], [place] | | | | | | [address] | | | | | | [phone] | | | +--------+ + + + [...] | + + + + + | [facility] | [address] | [place] [address] | | | PATHOLOGY | [address] | | | + + + + + documented in this encounter Visit Diagnoses Not on filedocumented in this encounter"
--- OUTSIDE RECORDS SUMMARY | ~2019-01-07 | XMS | Clinical Summary ---
Demographics + + + | Address | [address] | | | [place] [address] | + + + | Home Phone [...] [place], | | | | | [place] [address] | | + + + + + Care Team Providers + +------+ + | Care Marketing Team Lead Name | Role | Phone | + +------+ + PCP | Unavailable | + +------+ + Source Comments MARY is fully live on both [facility] Ambulatory and [facility] InPatient.[facility] Allergies Not on File Medications Not [...]
--- OUTSIDE RECORDS SUMMARY | ~2019-01-07 | XMS | Encounter Summary ---
Demographics + + + | Address | [address] | | | [place] [address] | + + + | Home Phone [...] [place], | | | | | [place] [address] | | + + + + + Care Team Providers + +------+ + | Care Acidity Tester Name | Role | Phone | + +------+ + PCP | Unavailable | + +------+ + Encounter Details +--------+ + + + + | Date | Type | Department | Care Team | Description | +--------+ + + + + | 09/20/ | Office | General Internal | Note, Outpatient | Progress Note | | 1994 | Visit-Trans | Medicine [address] | Clinic | | | | [address] | [address] | | | | | | Mailcode: L475 | | | | | | Outpatient Clinic | | | | | | [address] | | | | | | [place], [place] | | | | | | [address] | | | | | | [phone] | | | +--------+ + + + [...] as of this encounter Progress Notes Interface, Weighmaster In - 06/01/2006 3:00 AM PDT CLINIC DATE: 09/20/94 PSYCHIATRY CLINIC: OBSESSIVE-COMPULSIVE DISORDER (OCD) PSYCHIATRIC CLINIC EVALUATION: IDENTIFYING INFORMATION: Ms. Evans is a 39-year-old white female who is self-referred to the OCD Clinic for evaluation of potential obsessive-compulsive disorder symptomatology. Sources of information include the patient who appears to be a reliable historian as well as the [facility] chart including a neuropsychological evaluation conducted [...] Four months later, she was hospitalized at [facility] for 10 days at the [...] 1994. 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 Since that time, she has been on Social Security disability. Her boyfriend works in an auto shop that they bought several years ago. She has tried to work in the [employer] shop but is unable to tolerate it [...] Monroy M.D. Resident, Psychiatry Jamir Payan M.D. Surfboard Maker, Psychiatry and occurred after her last divorce. [...] 1994. 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 Since that time, she has been on Social Security disability. Her boyfriend works in an auto shop that they bought several years ago. She has tried to work in the [employer] shop but is unable to tolerate it [...] interview carrying the recent article from the [facility] on OCD. She easily engages in [...] RECOMMENDATIONS: 1. The patient will take the [place] Obsessive-Compulsive computerized test today. She was also [...] Monroy M.D. Resident, Psychiatry Jamir Payan M.D. Surfboard Maker, Psychiatry Aaron:bony WOOD:bony C: 10/04/94 shubham documented in this encounter Plan of Treatment Not on filedocumented as of this encounter Visit Diagnoses Not on filedocumented in this encounter
--- OUTSIDE RECORDS SUMMARY | ~2019-01-07 | XMS | Encounter Summary ---
Demographics + + + | Address | [address] | | | [place] [address] | + + + | Home Phone [...] | Author | [facility] | | | and [place] | + + + | Organization | [facility] | | | and [...] Team Providers + +------+ + | Care Customs Officer Name | Role | Phone | [...] + + | 11/10/ | Clinical | [facility] | | Disorder of bone and | | 2014 | Support | Group [id number] | | cartilage, | | | | [address] | | unspecified | | | | [address] | | | | | | [address] | | | | | | [phone] | | | +--------+ + + + [...] as of this encounter Progress Eunice Shaw, Quarryman - 11/10/2014 3:21 PM PDTA/P Spine and [...]
--- OUTSIDE RECORDS SUMMARY | ~2019-01-07 | XMS | Encounter Summary ---
Demographics + + + | Address | [address] | | | [place] [address] | + + + | Home Phone | | + + + | Preferred Language | Unknown | + + + | Marital Status | Single | + + + | Mormon Affiliation | Unknown | + + + | Race | Unknown | + + + | Ethnic Group | Unknown | + + + Author + + + | Author | [facility] | | | and [place] | + + + | Organization | [facility] | | | and [place] [...] Team Providers + +------+ + | Care [employer] Principal Name | Role | Phone | + +------+ + | Timothy Elmore | PCP | | + +------+ + Reason for Visit + + + | Reason | Comments | + + + | 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 [...] | implant | [address] | Surg [address] | | | | | status | [place] | [address] | | | | | | [address] | [address] | | | | | | Tr[address] | [place] | | | | | | [place] | [address] | | | | | | [address] | Phone: | | | | | | Phone: | [phone] | | | | | | [phone] | Fax: | | | | | | | [phone] | +--------+--------+ + + + + Encounter Details +--------+---------+ + + + | Date | Type | Department | Care Team | Description | +--------+---------+ + + + | 09/20/ | Office | [facility] | Wesley Mckeon, | Breast implant | | 2015 | Visit | Surgery [address] | [place] [address] | opal, initial | | | | [address] | [address] | encounter (Primary | | | | [address] | [place] [address] | Dx) | | | | [address] | [phone] | | | | | [phone] | | | +--------+---------+ + + + [...] this encounter Progress Notes Pasquale Granados V, WOOL CLASSER - 09/21/2015 3:20 PM PDTFormatting of this [...] Alcohol Use: No The patient lives in [place]. Family History: Family History Problem Relation Age [...]
--- OUTSIDE RECORDS SUMMARY | ~2019-01-07 | XMS | Encounter Summary ---
Demographics + + + | Address | [address] | | | [place] [address] | + + + | Home Phone | | + + + | Preferred Language | Unknown | + + + | Marital Status | Single | + + + | Lutheran Affiliation | Unknown | + + + | Race | Unknown | + + + | Ethnic Group | Unknown | + + + Author + + + | Author | [facility] | | | and [place] | + + + | Organization | [facility] | | | and [...] Providers + +------+ + | Care Industrial Hygienist Name | Role | Phone | + [...] + | 06/15/ | Telephone | [facility] | [place], | Appointment (Pain in | | 2016 | | CRANI SPINE JNT | MD [address] | Left leg -- See | | | | [address] | comment) | | | | [address] | [place] | | | | | [address] | [phone] | | | | | [phone] | | | +--------+ + + + [...]
--- OUTSIDE RECORDS SUMMARY | ~2019-01-07 | XMS | Encounter Summary ---
Demographics + + + | Address | [address] | | | [place] [address] | + + + | Home Phone [...] [place], | | | | | [place] [address] | | + + + + + Care Team Providers + +------+ + | Care Educational Psychologist Name | Role | Phone | + [...] as of this encounter Progress Notes Interface, Can Capper In - 02/21/2006 3:06 AM PSTCLINIC DATE: [...] M.D. Resident, Internal Medicine Wallace Szymanski M.D. Returns Clerk, Internal Medicine TORI/niles d ocumented in this encounter Plan of Treatment Not on filedocumented as of this encounter Visit Diagnoses Not on filedocumented in this encounter"
--- OUTSIDE RECORDS SUMMARY | ~2019-01-07 | XMS | Encounter Summary ---
Demographics + + + | Address | [address] | | | [place] [address] | + + + | Home Phone [...] + + + | Author | [facility] | + + + | Organization | [facility] | + + + | Address | Unknown | + + + | Phone | Unavailable | + + + Support + + + + + | Name | Relationship | Address | Phone | + + + + + | Zaida Putnam | ECON | [address] | | | | | [place], | | | | | [place] [address] | | + + + + + Care Team Providers + +------+ + | Care Casino Manager Name | Role | Phone | [...] as of this encounter Progress Notes Interface, Sparmaker In - 02/17/2006 3:01 AM PSTCLINIC DATE: 03/09/1998 INTERNAL MEDICINE CLINIC SUBJECTIVE: This is a patient of Mp Milton who comes in today with pain exacerbation secondary to her fibromyalgia and chronic low back pain. At the last visit she made a verbal commitment for management of her chronic pain, which included an agreement that Mp was her sole Vicodin manager battery. She attempted to make an appointment with [...]
--- OUTSIDE RECORDS SUMMARY | ~2019-01-07 | XMS | Encounter Summary ---
Demographics + + + | Address | [address] | | | [place] [address] | + + + | Home Phone [...] [place], | | | | | [place] [address] | | + + + + + Care Team Providers + +------+ + | Care Mobile Home Set Up Person Name | Role | Phone | + [...] of this encounter Progress Notes Interface, Mold Making Supervisor In - 02/14/2006 5:12 AM PSTINIC DATE: 03/21/1998 INTERNAL MEDICINE CLINIC SUBJECTIVE: Ms. Evans comes in today for follow up of her chronic pain. She has been in a flare for the last two weeks, since her mother became ill after having a fall precipitating a fractured humerus. 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 Wallace Szymanski. Hui Milton M.D. [facility] Wallace Szymanski M.D. [facility] MS/hhk d ocumented in this encounter Plan of Treatment Not on filedocumented as of this encounter Visit Diagnoses Not on filedocumented in this encounter"
--- OUTSIDE RECORDS SUMMARY | ~2019-01-07 | XMS | Encounter Summary ---
Demographics + + + | Address | [address] | | | [place] [address] | + + + | Home Phone [...] | Author | [facility] | | | and [place] | + + + | Organization | [facility] | | | and [...] Team Providers + +------+ + | Care Blood Bank Technologist Name | Role | Phone | + [...] | | | | | Phone: | [phone] | | | | | | [phone] | Fax: | | | | | | Fax: | [phone] | | | | | | [phone] | | +--------+ + + + + [...] | | and other | [place] | [address] | | | | | examinations | [address] | Phone: | | | | | of body | Phone: | [phone] | | | | | structure | [phone] | Fax: | | | | | Procedures | | [phone] | | | | | CSJ-06/29 | | | +--------+--------+ + + + + Encounter Details +--------+---------+ + + + | Date | Type | Department | Care Team | Description | +--------+---------+ + + + | 05/08/ | Office | [facility] | Tapan Bragg | Lumbar stenosis | | 2016 | Visit | [facility] | MD [address] | (Primary Dx) | | | | [address] [facility] [facility] | [facility] [address], | | | | | [address] | [place] [address] | | | | | [address] | [phone] | | | | | [phone] | | | +--------+---------+ + + + [...] sign up for MY CHART at the lockstitch front maker. Just ask the staff there to help [...] sign up for MY CHART at the lockstitch front maker. Just ask the staff there to help [...]
--- OUTSIDE RECORDS SUMMARY | ~2019-01-07 | XMS | Encounter Summary ---
Demographics + + + | Address | [address] | | | [place] [address] | + + + | Home Phone [...] [place], | | | | | [place] [address] | | + + + + + Care Team Providers + +------+ + | Care Vessel Traffic Officer Name | Role | Phone | + +------+ + PCP | Unavailable | + +------+ + Encounter Details +--------+ + + + + | Date | Type | Department | Care Team | Description | +--------+ + + + + | 05/13/ | Results | | Other, Faculty | | | 1998 | Only | | [phone] | | +--------+ + + + + [...] | | + +---------+ + + | [facility] DEPARTMENT OF | | | | | RADIOLOGY | | | | + +---------+ + + documented in this encounter Visit Diagnoses Not on filedocumented in this encounter"
--- OUTSIDE RECORDS SUMMARY | ~2019-01-07 | XMS | Encounter Summary ---
Demographics + + + | Address | [address] | | | [place] [address] | + + + | Home Phone | | + + + | Preferred Language | Unknown | + + + | Marital Status | Single | + + + | Restorationism Affiliation | Unknown | + + + | Race | Unknown | + + + | Ethnic Group | Unknown | + + + Author + + + | Author | [facility] | | | and [place] | + + + | Organization | [facility] | | | and [place] [...] Team Providers + +------+ + | Care Pin Feather Machine Operator Name | Role | Phone [...] | | 2014 | | [place] | [address] | Weight loss; | | | | ENDOCRINOLOGY [address] | [address] | Pancreatic | | | | [address] | [place] [address] | insufficiency; | | | | [address] [place] | [phone] | Diarrhea | | | | [address] | | | | | | [phone] | | | +--------+ + + + [...] | CORE | | | | [place] [address] | | LABORATORY | | | | [...] + + | K[place] | [address] | [place] [address] | [phone] | | CORE LABORATORY (I) | | [...] [place] | | | | | | [address] | | | | + + + + + + + + | Specimen | + + | Blood specimen | | (specimen) | + + + + + + + | Performing | Address | City/State/Zipcode | Phone Number | | Organization | | | | + + + + + | [place] | [address] | [place] [address] | [phone] | | CORE LABORATORY (I) | | [...] CARIE | | | Fasting | [facility] [place] [address] | | [place] | | | [...] | [address] | [place] [address] | [phone] | | [facility] (I) | | [...] [place] | | | | | | [address] | | | | + + + + + + + + | Specimen | + + | Blood specimen | | (specimen) | + + + + + + + | Performing | Address | City/State/Zipcode | Phone Number | | Organization | | | | + + + + + | KARL[place] | [address] | [place] [address] | [phone] | | CORE LABORATORY (I) | | [...]
--- OUTSIDE RECORDS SUMMARY | ~2019-01-07 | XMS | Encounter Summary ---
Demographics + + + | Address | [address] | | | [place] [address] | + + + | Home Phone [...] + | Author | [facility] | | | and [place] | + + + | Organization | [facility] | | | and [place] [...] limb, left | [address] | [address] | | | | | Procedures | [place] | Phone: | | | | | MRI Knee | [address] | [phone] | | | | | Left wo | Phone: | Fax: | | | | | Contrast | [phone] | [phone] | | | | | | Fax: | | | | | | | [phone] | | +--------+--------+ + + + + [...] [place] | | | | | | [address] | [address] Phone: | | | | | | Phone: | [phone] | | | | | | [phone] | Fax: | | | | | | Fax: | [phone] | | | | | | [phone] | | +--------+ + + + + + Encounter Details +--------+---------+ + + + | Date | Type | Department | Care Team | Description | +--------+---------+ + + + | 06/13/ | Office | [facility] | [place], | Nerve entrapment of | | 2016 | Visit | CRANI SPINE JNT | MD [address] | lower limb, left | | | | [address] | [address] | (Primary Dx) | | | | [address] [place] | [place] | | | | | [address] | [phone] | | | | | [phone] | | | +--------+---------+ + + + [...] NRS Pain Meds 2 OSWESTRY INDEX EQ5D 53947 VAS 60 SURGICAL RISK FACTORS: Diabetes No BMI Body mass index is 22.61 kg/(m^2). 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 S/P LT Knee Replacement 2011 in [place] with Revision surgery [address] Granados. She continues t o have significant pain lateral aspect LT knee. The [facility] EMR was reviewed for relevant information [...] was spent in face to fa ce consumer credit counselor and advice to patient. This medical [...]
--- OUTSIDE RECORDS SUMMARY | ~2019-01-07 | XMS | Encounter Summary ---
Demographics + + + | Address | [address] | | | [place] [address] | + + + | Home Phone | | + + + | Preferred Language | Unknown | + + + | Marital Status | Single | + + + | Amish Affiliation | Unknown | + + + | Race | Unknown | + + + | Ethnic Group | Unknown | + + + Author + + + | Author | [facility] | | | and [place] | + + + | Organization | [facility] | | | and [place] [...] Team Providers + +------+ + | Care Skiver Hand Name | Role | Phone | [...] | | 2014 | | [place] | [address] | | | | | ENDOCRINOLOGY [address] | [address] | | | | | [address] | [place] [address] | | | | | [address] [place] | [phone] | | | | | [address] | | | | | | [phone] | | | +--------+ + + + [...] | CORE | | | | [place] [address] | | LABORATORY | | | | [...] [place] | [address] | [place] [address] | [phone] | | CORE LABORATORY (I) | | [...] | | CORE | | | | [address] | | LABORATORY | | | | [...] + + | [facility] [place] | [address] | [place] [address] | [phone] | | CORE LABORATORY (I) | | | | + + + + + documented in this encounter Visit Diagnoses + + | Diagnosis | + + | Diarrhea | + + documented in this encounter"
--- OUTSIDE RECORDS SUMMARY | ~2019-01-07 | XMS | Encounter Summary ---
Demographics + + + | Address | [address] | | | [place] [address] | + + + | Home Phone [...] [place], | | | | | [place] [address] | | + + + + + Care Team Providers + +------+ + | Care Lumber Straightener Name | Role | Phone | + +------+ + PCP | Unavailable | + +------+ + Encounter Details +--------+ + + + + | Date | Type | Department | Care Team | Description | +--------+ + + + + | 08/14/ | Office | General Internal | Note, Outpatient | Progress Note | | 1994 | Visit-Trans | Medicine [address] | Clinic | | | | [place] | [address] | | | | | | Mailcode: L475 | | | | | | Outpatient Clinic | | | | | | [address] | | | | | | [place], [place] | | | | | | [address] | | | | | | [phone] | | | +--------+ + + + [...] as of this encounter Progress Notes Interface, Purchasing Administrator In - 06/05/2006 1:00 AM PDT CLINIC [...] 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 John Mulligan M.D. Transitional Studies Instructor, Anesthesiology Director, Pain Management Services HUI/fernando documented in this encounter Plan of Treatment Not on filedocumented as of this encounter Visit Diagnoses Not on filedocumented in this encounter"
--- OUTSIDE RECORDS SUMMARY | ~2019-01-07 | XMS | Encounter Summary ---
Demographics + + + | Address | [address] | | | [place] [address] | + + + | Home Phone | | + + + | Preferred Language | Unknown | + + + | Marital Status | Single | + + + | Mormonism Affiliation | Unknown | + + + | Race | Unknown | + + + | Ethnic Group | Unknown | + + + Author + + + | Author | [facility] | | | and [place] | + + + | Organization | [facility] | | | and [...] Providers + +------+ + | Care Railroad Track Repair Supervisor Name | Role | Phone | + +------+ + | Timothy Elmore | PCP | | + +------+ + Encounter Details +--------+ + + + + | Date | Type | Department | Care Team | Description | +--------+ + + + + | 08/18/ | Abstract | [facility] | Karlee, | Dental caries | | 2015 | | PHYSIATRY [address] | Yfn Sabillon CMA | (Primary Dx); | | | | [address] | | Depression; | | | | [place] | | Essential | | | | [address] | | hypertension | | | | [phone] | | | +--------+ + + + [...]
--- OUTSIDE RECORDS SUMMARY | ~2019-01-07 | XMS | Encounter Summary ---
Demographics + + + | Address | [address] | | | [place] [address] | + + + | Home Phone [...] [place], | | | | | [place] [address] | | + + + + + Care Team Providers + +------+ + | Care Coat Baster Name | Role | Phone | + [...] as of this encounter Progress Notes Interface, Consular Officer In - 02/09/2006 5:05 AM PSTCLINIC DATE: [...]
--- OUTSIDE RECORDS SUMMARY | ~2019-01-07 | XMS | Encounter Summary ---
Demographics + + + | Address | [address] | | | [place] [address] | + + + | Home Phone [...] + + + | Author | [facility] | + + + | Organization | [facility] | + + + | Address | Unknown | + + + | Phone | Unavailable | + + + Support + + + + + | Name | Relationship | Address | Phone | + + + + + | Zaida Putnam | [place] | [address] | | | | | [place], | | | | | [place] [address] | | + + + + + Care Team Providers + +------+ + | Care Captain Waiter/Waitress Name | Role | Phone | + [...] as of this encounter Progress Notes Interface, Broadcast Chief Engineer In - 02/17/2006 3:01 AM PSTCLINIC DATE: 03/09/1998 INTERNAL MEDICINE CLINIC SUBJECTIVE: This is a patient of Mp Milton who comes in today with pain exacerbation secondary to her fibromyalgia and chronic low back pain. At the last visit she made a verbal commitment for management of her chronic pain, which included an agreement that Mp was her sole Vicodin repair manager. She attempted to make an appointment [...]
--- OUTSIDE RECORDS SUMMARY | ~2019-01-07 | XMS | Encounter Summary ---
Demographics + + + | Address | [address] | | | [place] [address] | + + + | Home Phone [...] Author | [facility] | | | and [place] | + + + | Organization | [facility] | | | [...] Team Providers + +------+ + | Care Estimator Printing Plate Making Name | Role | Phone | + [...] | Otolaryngolog | Diagnoses | Femi, | Gladis, | | | | y | Unspecified | Migel Alvarenga MD | Jamir Marks MD | | | | | lesions of | Need updated | [address] | | | | | oral mucosa | address | [facility] | | | | | | information | [address] | | | | | | [place] | [place] | | | | | | | [address] Phone: | | | | | | | [phone] | | | | | | | Fax: | | | | | | | [phone] | +--------+--------+ + + + + Encounter Details +--------+---------+ + + + | Date | Type | Department | Care Team | Description | +--------+---------+ + + + | 12/07/ | Office | [facility] [address] [place] [address] | Jamir Griffith, | Oral lesion (Primary | | 2016 | Visit | [facility] [address] | MD 13[address] | Dx); Tinnitus, | | | | [facility] [address] | [facility] [address] | bilateral; | | | | [address] [place] | [address] [place] | Hoarseness; ETD | | | | [phone] | [phone] | (eustachian tube | | | | [...] that she [facility] thr[facility] to use of prolonged prednisone. Patient [...] regarding hearing loss. I spent 50 minutes [id number] with iLtzy Evans today; greater than 50% was spent [...]
--- OUTSIDE RECORDS SUMMARY | ~2019-01-07 | XMS | Encounter Summary ---
Demographics + + + | Address | [address] | | | [place] [address] | + + + | Home Phone [...] [place], | | | | | [place] [address] | | + + + + + Care Team Providers + +------+ + | Care Vice President Of Talent Acquisition Name | Role | Phone | + [...] of this encounter Progress Notes Interface, Marketing Mgr In - 02/09/2006 5:05 AM PSTCLINIC DATE: [...]
--- OUTSIDE RECORDS SUMMARY | ~2019-01-07 | XMS | Encounter Summary ---
Demographics + + + | Address | [address] | | | [place] [address] | + + + | Home Phone [...] [place], | | | | | [place] [address] | | + + + + + Care Team Providers + +------+ + | Care Grease Cup Filler Name | Role | Phone | + [...] as of this encounter Progress Notes Interface, Glost Kiln Operator In - 02/23/2006 5:02 AM PSTCLINIC [...] M.D. Resident, Internal Medicine Wallace Szymanski M.D. Accounts Receivable Accountant, Internal Medicine TORI/JENAE/estrellita d ocumented in this encounter Plan of Treatment Not on filedocumented as of this encounter Visit Diagnoses Not on filedocumented in this encounter"
--- OUTSIDE RECORDS SUMMARY | ~2019-01-07 | XMS | Encounter Summary ---
Demographics + + + | Address | [address] | | | [place] [address] | + + + | Home Phone [...] [place], | | | | | [place] [address] | | + + + + + Care Team Providers + +------+ + | Care Cable Cutter And Swager Name | Role | Phone | + [...]
--- OUTSIDE RECORDS SUMMARY | ~2019-01-07 | XMS | Encounter Summary ---
Demographics + + + | Address | [address] | | | [place] [address] | + + + | Home Phone [...] + | Author | [facility] | | | and [place] | + + + | Organization | [facility] | | | and [place] [...] Providers + +------+ + | Care Wire Drawing Machine Tender Name | Role | Phone | [...] + + | 06/21/ | Telephone | [facility] | Jacklyn, | Referral (Follow up) | | 2016 | | CRANI SPINE JNT | [address] | (LT Knee MR (PRMCE) | | | | [address] | -- APPROVED); Other | | | | [address] [place] | [place] [address] | (See comments) | | | | [address] | [phone] | | | | | [phone] | | | +--------+ + + + [...]
--- OUTSIDE RECORDS SUMMARY | ~2019-01-07 | XMS | Encounter Summary ---
Demographics + + + | Address | [address] | | | [place] [address] | + + + | Home Phone [...] | Author | [facility] | | | and [place] | + + + | Organization | [facility] | | [...] Team Providers + +------+ + | Care Early Morning Babysitter Name | Role | Phone | + +------+ + | Timothy Elmore | PCP | | + +------+ + Encounter Details +--------+ + + + + | Date | Type | Department | Care Team | Description | +--------+ + + + + | 08/18/ | Abstract | [facility] | Karlee, | Dental caries | | 2015 | | PHYSIATRY [address] | Yfn Sabillon CMA | (Primary Dx); | | | | [address] | | Depression; | | | | [place] | | Essential | | | | [address] | | hypertension | | | | [phone] | | | +--------+ + + + [...]
--- OUTSIDE RECORDS SUMMARY | ~2019-01-07 | XMS | Encounter Summary ---
Demographics + + + | Address | [address] | | | [place] [address] | + + + | Home Phone | | + + + | Preferred Language | Unknown | + + + | Marital Status | Single | + + + | Catholic Affiliation | Unknown | + + + | Race | Unknown | + + + | Ethnic Group | Unknown | + + + Author + + + | Author | [facility] | | | and [place] | + + + | Organization | [facility] [...] Providers + +------+ + | Care Home Health Rn Name | Role | Phone | + [...] + + | 06/21/ | Telephone | [facility] | Jacklyn, | Referral (Follow up) | | 2016 | | CRANI SPINE JNT | [address] | (LT Knee MR (PRMCE) | | | | [address] | [address] | -- APPROVED); Other | | | | [address] [address] | [place] [address] | (See comments) | | | | [address] | [phone] | | | | | [phone] | | | +--------+ + + + [...]
--- OUTSIDE RECORDS SUMMARY | ~2019-01-07 | XMS | Encounter Summary ---
Demographics + + + | Address | [address] | | | [place] [address] | + + + | Home Phone [...] [place], | | | | | [place] [address] | | + + + + + Care Team Providers + +------+ + | Care Document Imaging Manager Name | Role | Phone | + +------+ + PCP | Unavailable | + +------+ + Encounter Details +--------+ + + + + | Date | Type | Department | Care Team | Description | +--------+ + + + + | 09/20/ | Office | General Internal | Note, Outpatient | Progress Note | | 1994 | Visit-Trans | Medicine [address] | Clinic | | | | [place] | [address] | | | | | | Mailcode: L475 | | | | | | Outpatient Clinic | | | | | | [address] | | | | | | [place], [place] | | | | | | [address] | | | | | | [phone] | | | +--------+ + + + [...] as of this encounter Progress Notes Interface, Tattoo Identifier In - 06/01/2006 3:00 AM PDT CLINIC DATE: 09/20/94 PSYCHIATRY CLINIC: OBSESSIVE-COMPULSIVE DISORDER (OCD) PSYCHIATRIC CLINIC EVALUATION: IDENTIFYING INFORMATION: Ms. Evans is a 39-year-old white female who is self-referred to the OCD Clinic for evaluation of potential obsessive-compulsive disorder symptomatology. Sources of information include the patient who appears to be a reliable historian as well as the [facility] chart including a neuropsychological evaluation [...] Four months later, she was hospitalized at [facility] for 10 days at the recommendation [...] 1994. 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 Since that time, she has been on Social Security disability. Her boyfriend works in an auto shop that they bought several years ago. She has tried to work in the [employer] shop but is unable to tolerate it [...] Monroy M.D. Resident, Psychiatry Jamir Payan M.D. French Edge Operator, Psychiatry and occurred after her last divorce. [...] 1994. 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 Since that time, she has been on Social Security disability. Her boyfriend works in an auto shop that they bought several years ago. She has tried to work in the [employer] shop but is unable to tolerate it [...] interview carrying the recent article from the [facility] on OCD. She easily engages in [...] RECOMMENDATIONS: 1. The patient will take the Ferris-Brown Obsessive-Compulsive computerized test today. She was also [...] Monroy M.D. Resident, Psychiatry Jamir Payan M.D. French Edge Operator, Psychiatry Aaron:bony WOOD:bony C: 10/04/94 shubham documented in this encounter Plan of Treatment Not on filedocumented as of this encounter Visit Diagnoses Not on filedocumented in this encounter
--- OUTSIDE RECORDS SUMMARY | ~2019-01-07 | XMS | Encounter Summary ---
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 She has been five times and five [...] bowel sounds. No hepatosplenomegaly noted. Rectal deferred. CORE CHECKER EXAMINATION: Deferred. EXTREMITIES: Clear of clubbing, cyanosis, [...] M.D. Resident, Internal Medicine Kaleb Velásquez M.D. General Dentist, Medicine TORI/tesfaye cc: Wallace Szymanski M.D. General Dentist, Internal Medicine Monroe Pruitt M.D. General Dentist, Anesthesiology Director of Pain Management Center cc: documente d in this encounter Plan of Treatment Not on filedocumented as of this encounter Visit Diagnoses Not on filedocumented in this encounter
--- OUTSIDE RECORDS SUMMARY | ~2019-01-07 | XMS | Encounter Summary ---
Demographics + + + | Address | [address] | | | [place] [address] | + + + | Home Phone [...] | Author | [facility] | | | and [place] | + + + | Organization | [facility] | | | and [place] | [...] Team Providers + +------+ + | Care Building Construction Engineer Name | Role | Phone | [...] n | neuritis or | [place] | [address] | | | | | | [address] | [place], | | | | | radiculitis, | [place], | [place] | | | | | unspecified | [place] | Phone: | | | | | [facility] | [address] | [phone] | | | | | | Phone: | Fax: | | | | | | [phone] | [phone] | +--------+--------+ + + + + Encounter Details +--------+ + + + + | Date | Type | Department | Care Team | Description | +--------+ + + + + | 02/24/ | Procedure | 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 Ankle Clonus: absent. [address] [address] Patient: Litzy Evans Date of : 1955 Sex: Female Age: 59 Years 4 Months Height: 5 feet 5 inch Sensory NCS Nerve / Sites Rec. Site Onset Lat Peak Lat ELEMENTARY INSTRUCTIONAL COACH Amp PP Amp Segments Distance Velocity ms [...]
--- OUTSIDE RECORDS SUMMARY | ~2019-01-07 | XMS | Encounter Summary ---
Demographics + + + | Address | [address] | | | [place] [address] | + + + | Home Phone [...] [place], | | | | | [place] [address] | | + + + + + Care Team Providers + +------+ + | Care Call Circuit Worker Name | Role | Phone | [...] as of this encounter Progress Notes Interface, Mattress Weaver In - 02/23/2006 5:02 AM PSTCLINIC DATE: [...] M.D. Resident, Internal Medicine Wallace Szymanski M.D. Special Education Itinerant Teacher, Internal Medicine TORI:mau d ocumented in this encounter Plan of Treatment Not on filedocumented as of this encounter Visit Diagnoses Not on filedocumented in this encounter
--- OUTSIDE RECORDS SUMMARY | ~2019-01-07 | XMS | Encounter Summary ---
Demographics + + + | Address | [address] | | | [place] [address] | + + + | Home Phone [...] [place], | | | | | [place] [address] | | + + + + + Care Team Providers + +------+ + | Care Clinical Data Abstractor Name | Role | Phone | + [...] Rd | | | | | | [place] | | | | | | [address] | | | +--------+ + + + [...] as of this encounter Progress Notes Interface, Recordak Operator In - 06/14/2006 5:08 AM PDT [address] [address] [facility] January 08, 1994 DARYL ELLIS PH D WATCH AND CLOCK MAKER AND REPAIRER MEDICAL PSYCHOLOGY [address] [address] RE:Litzy [place] MR:[id number] Ellis: Thank [...] any further information. Sincerely, Faisal Grijalva M.D. Sales And Service Technician, Neurology PIYUSH:sailaja [birth year] 09, 1996 documented in this encounter Plan of Treatment Not on filedocumented as of this encounter Visit Diagnoses Not on filedocumented in this encounter"
--- OUTSIDE RECORDS SUMMARY | ~2019-01-07 | XMS | Encounter Summary ---
Demographics + + + | Address | [address] | | | [place] [address] | + + + | Home Phone [...] + + + | Author | [facility] | | | and [place] | + + + | Organization | [facility] | | | and [...] Team Providers + +------+ + | Care Media Senior Recruiter Name | Role | Phone | + [...] + + | 11/10/ | Clinical | [facility] | | Disorder of bone and | | 2014 | Support | Group [address] | | cartilage, | | | | [address] | | unspecified | | | | [address] [place] | | | | | | [address] | | | | | | [phone] | | | +--------+ + + + [...] as of this encounter Progress Eunice Shaw, Cat Sitter - 11/10/2014 3:21 PM PDTA/P Spine and [...]
--- OUTSIDE RECORDS SUMMARY | ~2019-01-07 | XMS | Encounter Summary ---
Demographics + + + | Address | [address] | | | [place] [address] | + + + | Home Phone [...] | Author | [facility] | | | and [place] | + + + | Organization | [facility] | | [...] Team Providers + +------+ + | Care Molecular Spectroscopist Name | Role | Phone | + [...] | | oral mucosa | address | [facility] | | | | | | information | [address] | | | | | | [place] | [place] | | | | | | | [address] Phone: | | | | | | | [phone] | | | | | | | Fax: | | | | | | | [phone] | +--------+--------+ + + + + Encounter Details +--------+---------+ + + + | Date | Type | Department | Care Team | Description | +--------+---------+ + + + | 12/07/ | Office | [facility] [address] [place] [address] | Jamir Griffith, | Oral lesion (Primary | | 2016 | Visit | [place] [facility] [address] | MD 1330 | Dx); Tinnitus, | | | | [facility] [address] [place] | [facility] [address] [place] | bilateral; | | | | [address] [place] | [address] [place] [address] | Hoarseness; ETD | | | | [phone] | [phone] | (eustachian tube | | | | [...] that she had thr[facility] related to use of prolonged prednisone. [...] regarding hearing loss. I spent 50 minutes xeuw-df-chyu with Litzy Evans today; greater than 50% [...]
--- OUTSIDE RECORDS SUMMARY | ~2019-01-07 | XMS | Encounter Summary ---
Demographics + + + | Address | [address] | | | [place] [address] | + + + | Home Phone [...] | + + + + + | aZida Putnam | ECON | [address] | | | | | [place], | | | | | [place] [address] | | + + + + + Care Team Providers + +------+ + | Care Consultants Intern Name | Role | Phone | + +------+ + PCP | Unavailable | + +------+ + Encounter Details +--------+ + + + + | Date | Type | Department | Care Team | Description | +--------+ + + + + | 12/25/ | Office | UNKNOWN DEPARTMENT | Note, Outpatient | Progress Note | | 1993 | Visit-Trans | [address] [facility] | Clinic | | | | [place] | [address] | | | | | | [place], [place] | | | | | | [address] | | | +--------+ + + + [...] of this encounter Progress Notes Interface, Paper Products Machine Operator In - 06/14/2006 5:08 AM PDT CLINIC [...] alcohol. 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 She is , currently living with a boyfriend/roommate in [place]. She is subsisting on Welfare, she has [...] management of somatization disorder. Faisal Grijalva M.D. Final Inspector And Tester, Neurology PIYUSH/ifrah cc: LEILANI ACOSTA MD [address] [place] [address] documented in this encounter Plan of Treatment Not on filedocumented as of this encounter Visit Diagnoses Not on filedocumented in this encounter
--- OUTSIDE RECORDS SUMMARY | ~2019-01-07 | XMS | Encounter Summary ---
Demographics + + + | Address | [address] | | | [place] [address] | + + + | Home Phone [...] + | Author | [facility] | | | and [place] | + + + | Organization | [facility] | | | and [place] [...] Providers + +------+ + | Care Rn Ambulatory Name | Role | Phone | + [...] [address] | | | | | [facility] [address] | [place] [address] | | | | | [address] [place] | [phone] | | | | | [address] | | | | | | [phone] | | | +--------+ + + + [...] | CORE | | | | [place] [address] | | LABORATORY | | | | [...] + | [place] | [address] [facility] | [place] [address] | [phone] | | CORE LABORATORY (I) | | [...] (I) | | | | [place] [address] | | | | + + + + + + + + | Specimen | + + | Blood specimen | | (specimen) | + + + + + + + | Performing | Address | City/State/Zipcode | Phone Number | | Organization | | | | + + + + + | [place] | [address] [facility] | [place] [address] | [phone] | | CORE LABORATORY (I) | | [...] | | | | | | PRMCE/Paclab [address] | | | | | | [...] + | [place] | [address] [facility] | [place] [address] | [phone] | | CORE LABORATORY (I) | | | | + + + + + documented in this encounter Visit Diagnoses + + | Diagnosis | + + | 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
--- OUTSIDE RECORDS SUMMARY | ~2019-01-07 | XMS | Encounter Summary ---
Demographics + + + | Address | [address] | | | [place] [address] | + + + | Home Phone [...] [place], | | | | | [place] [address] | | + + + + + Care Team Providers + +------+ + | Care Hospital Nursing Assistant Name | Role | Phone | [...]
--- OUTSIDE RECORDS SUMMARY | ~2019-01-07 | XMS | Encounter Summary ---
Demographics + + + | Address | [address] | | | [place] [address] | + + + | Home Phone [...] Author | [facility] | | | and [place] | + + + | Organization | [facility] | | | and [...] Providers + +------+ + | Care Building Code Inspector Name | Role | Phone | [...] | | | | | y | [address] | | | | | | Procedures | Phone: | | | | | | evaluate and | [phone] | | | | | | treat | | | +--------+--------+ + + + + Encounter Details +--------+---------+ + + + | Date | Type | Department | Care Team | Description | +--------+---------+ + + + | 12/14/ | Office | [facility] [address] [place] [address] | Joe Florse, | 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 I received a note from a surgical evaluat ion she had at [facility]. She has also had gastroenterology evaluation at [facility] as well, I do not have [...] syndrome. Furthermore, I would suggest to her [facility] provider that he screen and [...] | CORE | | | | [place] [address] | | LABORATORY | | | | [...] + | [place] | [address] [facility] | [place] [address] | [phone] | | CORE LABORATORY (I) | | [...] | [address] | [place] [address] | [phone] | | CORE LABORATORY (I) | | [...] | | CORE | | | | [address] | | LABORATORY | | | | [...] + | [place] | [address] [facility] | [place] [address] | [phone] | | CORE LABORATORY (I) | | [...] | | (I) | | | | [facility].Per[facility] by | | | | | [...] | [address] | [place] [address] | [phone] | | CORE LABORATORY (I) | | [...] | CORE | | | | [place] [address] | | LABORATORY | | | | [...] + | [place] | [address] [facility] | [place] [address] | [phone] | | CORE LABORATORY (I) | | [...] | | CORE | | | | [address] | | LABORATORY | | | | [...] + | [place] | [address] [facility] | [place] [address] | [phone] | | CORE LABORATORY (I) | | [...]
--- OUTSIDE RECORDS SUMMARY | ~2019-01-07 | XMS | Encounter Summary ---
Demographics + + + | Address | [address] | | | [place] [address] | + + + | Home Phone [...] [place], | | | | | [place] [address] | | + + + + + Care Team Providers + +------+ + | Care Bus Or Truck Garage Mechanic Name | Role | Phone | [...] as of this encounter Progress Notes Interface, Telephone Installer In - 02/28/2006 3:[address] [facility] Account No. PROGRESS RECORD Name Litzy Evans Birthdate 1955 Date Probl Time em FORMAT: PROBLEM NUMBER and TITLE: S=Subjective Number O=Objective A=Analysis P=Plans CLINIC DATE: 11/05/1997 November 05, 1997 OLEG PUGH MD [address] [facility] [address] RE: Litzy EVANS. MR#: [id number] : [address] Pugh: I had the pleasure of seeing your patient, Ms. Litzy Evans, at [facility] today for evaluation of her chronic pain problem. Ms. Evans tells me that she has moved to [place] within the last week and plans to establish care in the month of November with Dr. Kaleb Velásquez here at [facility]. Therefore, I will send you a copy of this letter, as well as Dr. Velásquez. Please allow me to briefly review Ms. Evans' history, as well as my evaluations, findings, and suggestions. Ms. Evans is a 42-year-old woman with a longstanding history of low back pain who had been previously treated at the [facility] prior to my arrival at [facility]. She states that she has had [...] tried a variety of medications including Tegretol, [place], Amitriptyline, and other antidepressants. CURRENT MEDICATIONS: 1. [...] has recently ended. She has moved to [place] and is now living with an ex-'s mother. 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 She smokes one pack of cigarettes a [...] also with some difficulty. Romberg is negative. Zuozcj-aqty-xzcupp is normal. On examination of her chest [...] normal limits." IMPRESSION: 1. Fibromyalgia by 1990 [place] [employer] criteria. 2. Significant psychiatric [...] care from Internal Medicine here at [facility], would be for her to see [...] the 1995 intractable pain act here in [place]. I agreed with Ms. Evans that should she establish care with Dr. Velásquez here at [facility], I would be happy to discuss her care with him at that point. In the meantime, I have nothing additional or specific to offer for Ms. Evans' care. Thank you very much for your referral of Ms. Evans to the [facility] here at [facility]. If you have any questions or concerns, please do not hesitate to give me a call at [phone]. Monroe Pruitt M.D. Poultry Farm Supervisor, Anesthesiology Director of [facility] Management Center BRS:mau cc: Kaleb Velásquez M.D. Poultry Farm Supervisor, Medicine Richie Her M.D. Poultry Farm Supervisor, Department of Orthopedics and Rehabilitation nterface, Telephone Installer In - 02/28/2006 3:08 AM PSTCLINIC DATE: 11/05/97 PHONE CALL: Litzy called today requesting more Vicodin. She wanted it called to [facility]. I spoke with Dr. Her in regard to this and he declined the request. I called the patient at 16:15 and left a message to that effect. The phone number is [phone]. Lindsay Romeo R.N. Orthopedics HALLIE/emily P cc: documente d in this encounter Plan of Treatment Not on filedocumented as of this encounter Visit Diagnoses Not on filedocumented in this encounter
--- OUTSIDE RECORDS SUMMARY | ~2019-01-07 | XMS | Encounter Summary ---
Demographics + + + | Address | [address] | | | [place] [address] | + + + | Home Phone | | + + + | Preferred Language | Unknown | + + + | Marital Status | Single | + + + | Evangelical Affiliation | Unknown | + + + | Race | Unknown | + + + | Ethnic Group | Unknown | + + + Author + + + | Author | [facility] | | | and [place] | + + + | Organization | [facility] | [...] Team Providers + +------+ + | Care Aircraft Time Clerk Name | Role | Phone | [...] + | 08/09/ | Telephone | [facility] | Tapan Bragg | Appointment (today's | | 2015 | | [facility] | MD [address] | appt) | | | | [address] [facility] | [address] [place], | | | | | [address] [place] | [place] | | | | | [address] | [phone] | | | | | [phone] | | | +--------+ + + + [...]
--- OUTSIDE RECORDS SUMMARY | ~2019-01-07 | XMS | Encounter Summary ---
Demographics + + + | Address | [address] | | | [place] [address] | + + + | Home Phone [...] [place], | | | | | [place] [address] | | + + + + + Care Team Providers + +------+ + | Care Electronics Parts Sales Representative Name | Role | Phone | + +------+ + PCP | Unavailable | + +------+ + Encounter Details +--------+ + + + + | Date | Type | Department | Care Team | Description | +--------+ + + + + | 09/04/ | Office | General Internal | Note, Outpatient | Progress Note | | 1994 | Visit-Trans | Medicine [address] | Clinic | | | | [place] | [address] | | | | | | Mailcode: L475 | | | | | | Outpatient Clinic | | | | | | [address] | | | | | | [place], [place] | | | | | | [address] | | | | | | [phone] | | | +--------+ + + + [...] of this encounter Progress Notes Interface, Manager Party In - 06/03/2006 2:00 AM PDT CLINIC [...] Ms. Evans has not been attending her evangelical on Sundays but continues to go to local evangelical meetings. She denies sedation, and nausea and [...] increased social function and participation in her taoist group. John Mulligan M.D. Motor Coach Bus Driver, Anesthesiology Director, Pain Management Services PK:bony cc: CAROLINE YOON MD WING COVERER [facility]OP[facility] documented in this encounter Plan of Treatment Not on filedocumented as of this encounter Visit Diagnoses Not on filedocumented in this encounter
--- OUTSIDE RECORDS SUMMARY | ~2019-01-07 | XMS | Encounter Summary ---
Demographics + + + | Address | [address] | | | [place] [address] | + + + | Home Phone [...] [place], | | | | | [place] [address] | | + + + + + Care Team Providers + +------+ + | Care Bundles Hanger Name | Role | Phone | + +------+ + PCP | Unavailable | + +------+ + Encounter Details +--------+ + + + + | Date | Type | Department | Care Team | Description | +--------+ + + + + | 07/24/ | Office | General Internal | Note, Outpatient | Progress Note | | 1994 | Visit-Trans | Medicine [address] | Clinic | | | | [place] | [address] | | | | | | Mailcode: L475 | | | | | | Outpatient Clinic | | | | | | [address] | | | | | | [place], [place] | | | | | | [address] | | | | | | [phone] | | | +--------+ + + + [...] as of this encounter Progress Notes Interface, Immigration Patrol Inspector In - 06/05/2006 1:00 AM PDT CLINIC [...] remained quite high including continued attendance of presybeterian and working on hjhsja-bgo-hacyj activities. She denies changes in bladder or [...] 2. Bladder dysfunction, resolved. John Mulligan M.D. Diamond Cleaner, Anesthesiology Director, Pain Management Services PK:bony documented in this encounter Plan of Treatment Not on filedocumented as of this encounter Visit Diagnoses Not on filedocumented in this encounter"
--- OUTSIDE RECORDS SUMMARY | ~2019-01-07 | XMS | Encounter Summary ---
Demographics + + + | Address | [address] | | | [place] [address] | + + + | Home Phone [...] [place], | | | | | [place] [address] | | + + + + + Care Team Providers + +------+ + | Care Tagman Name | Role | Phone | + [...]
--- OUTSIDE RECORDS SUMMARY | ~2019-01-07 | XMS | Encounter Summary ---
Demographics + + + | Address | [address] | | | [place] [address] | + + + | Home Phone [...] [place], | | | | | [place] [address] | | + + + + + Care Team Providers + +------+ + | Care Bulk Tank Driver Name | Role | Phone | [...] Rd | | | | | | [place], [place] | | | | | | [address] | | | +--------+ + + + [...] as of this encounter Progress Notes Interface, Ash Pit Worker In - 06/14/2006 5:08 AM PDT CLINIC [...] drink alcohol. 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 She is , currently living with a boyfriend/roommate in [place]. She is subsisting on Welfare, she has [...] management of somatization disorder. Faisal Grijalva M.D. Station Installer, Neurology PIYUSH/ifrah cc: LEILANI ACOSTA MD [address] [place] [address] documented in this encounter Plan of Treatment Not on filedocumented as of this encounter Visit Diagnoses Not on filedocumented in this encounter
--- OUTSIDE RECORDS SUMMARY | ~2019-01-07 | XMS | Encounter Summary ---
Demographics + + + | Address | [address] | | | [place] [address] | + + + | Home Phone [...] + + + | Author | [facility] | | | and [place] | + + + | Organization | [facility] | | | [...] Team Providers + +------+ + | Care Crew Leader Gluing Name | Role | Phone | + +------+ + | Timothy Elmore | PCP | | + +------+ + Reason for Visit + + + | Reason | Comments | + + + | Breast Concern | FRAME ASSEMBLER CON left breast implant rupture since 08/04/15. [...] | implant | [address] | Surg [address] | | | | | status | [place] | [address] | | | | | | [address] | [place] [address] | | | | | | Tristan | [place] | | | | | | [place] | [address] | | | | | | [address] | Phone: | | | | | | Phone: | [phone] | | | | | | [phone] | Fax: | | | | | | | [phone] | +--------+--------+ + + + + Encounter Details +--------+---------+ + + + | Date | Type | Department | Care Team | Description | +--------+---------+ + + + | 09/20/ | Office | [facility] | Wesley Mckeon, | Breast implant | | 2015 | Visit | Surgery [address] | [place] [address] | opal, initial | | | | [address] | [place] [address] | encounter (Primary | | | | [place] | [place] [address] | Dx) | | | | [address] | [phone] | | | | | [phone] | | | +--------+---------+ + + + [...] this encounter Progress Notes Pasquale Granados V, X RAY ELECTRONICS WIREMAN - 09/21/2015 3:20 PM PDTFormatting of this [...] Alcohol Use: No The patient lives in [place]. Family History: Family History Problem Relation Age [...]
--- OUTSIDE RECORDS SUMMARY | ~2019-01-07 | XMS | Encounter Summary ---
Demographics + + + | Address | [address] | | | [place] [address] | + + + | Home Phone [...] [place], | | | | | [place] [address] | | + + + + + Care Team Providers + +------+ + | Care Spinning Doffer Name | Role | Phone | + +------+ + PCP | Unavailable | + +------+ + Encounter Details +--------+ + + + + | Date | Type | Department | Care Team | Description | +--------+ + + + + | 06/26/ | Office | General Internal | Note, Outpatient | Progress Note | | 1994 | Visit-Trans | Medicine [address] | Clinic | | | | [place] | [address] | | | | | | Mailcode: L475 | | | | | | Outpatient Clinic | | | | | | [address] | | | | | | [place], [place] | | | | | | [address] | | | | | | [phone] | | | +--------+ + + + [...] as of this encounter Progress Notes Interface, Parts Interpreter In - 06/06/2006 5:07 AM PDT CLINIC [...] addition, she remains active in her local druze and is in the process of moving [...] 2. Bladder dysfunction, resolved. John Mulligan M.D. Change Over, Anesthesiology Director, Pain Management Services HUI /efren A documented in this encounter Plan of Treatment Not on filedocumented as of this encounter Visit Diagnoses Not on filedocumented in this encounter"
--- OUTSIDE RECORDS SUMMARY | ~2019-01-07 | XMS | Encounter Summary ---
Demographics + + + | Address | [address] | | | [place] [address] | + + + | Home Phone [...] | Author | [facility] | | | and [place] | + + + | Organization | [facility] | [...] Team Providers + +------+ + | Care Group Supervisor Yard Name | Role | Phone | + +------+ + | Timotyh Elmore | PCP | | + +------+ + Encounter Details +--------+ + + + + | Date | Type | Department | Care Team | Description | +--------+ + + + + | 12/21/ | Orders Only | [facility] [address] [place] [address] | Joe Flores, | Loss of appetite; | | 2014 | | [place] | [address] | Weight loss; | | | | ENDOCRINOLOGY [address] | [address] | Pancreatic | | | | [address] | [place] [address] | insufficiency; | | | | [address] [place] | [phone] | Diarrhea | | | | [address] | | | | | | [phone] | | | +--------+ + + + [...] | CORE | | | | [place] [address] | | LABORATORY | | | | [...] + + | [place] | [address] [facility] | [place] [address] | [phone] | | CORE LABORATORY (I) | | [...] [place] | | | | | | [address] | | | | + + + + + + + + | Specimen | + + | Blood specimen | | (specimen) | + + + + + + + | Performing | Address | City/State/Zipcode | Phone Number | | Organization | | | | + + + + + | [place] | [address] | [place] [address] | [phone] | | CORE LABORATORY (I) | | [...] CARIE | | | Fasting | [facility] [place] [address] | | [place] | | | [...] | [address] | [place] [address] | [phone] | | [facility] (I) | | [...] [place] | | | | | | [address] | | | | + + + + + + + + | Specimen | + + | Blood specimen | | (specimen) | + + + + + + + | Performing | Address | City/State/Zipcode | Phone Number | | Organization | | | | + + + + + | [place] | [address] | [place] [address] | [phone] | | CORE LABORATORY (I) | | [...]
--- OUTSIDE RECORDS SUMMARY | ~2019-01-07 | XMS | Encounter Summary ---
Demographics + + + | Address | [address] | | | [place] [address] | + + + | Home Phone | | + + + | Preferred Language | Unknown | + + + | Marital Status | Single | + + + | Hindu Affiliation | Unknown | + + + | Race | Unknown | + + + | Ethnic Group | Unknown | + + + Author + + + | Author | [facility] | | | and [place] | + + + | Organization | [facility] | | | and [place] | [...] Team Providers + +------+ + | Care Lens Inserter Name | Role | Phone | + [...] | | | | | [address] [place] | [address] | | | | | [address] | [place] [address] | | | | | [phone] | [phone] | | | | | | | [...] through Care Everywhere.THRUSH, ORAL (Y EAST INFECTION) (STATELESS)documented in this encounter Medications at Time of [...]
--- OUTSIDE RECORDS SUMMARY | ~2019-01-07 | XMS | Encounter Summary ---
Demographics + + + | Address | [address] | | | [place] [address] | + + + | Home Phone [...] + | Author | [facility] | | | and [place] | + + + | Organization | [facility] | | [...] Providers + +------+ + | Care Highway Technician Name | Role | Phone | [...] | | | limb, left | [address] | [address] | | | | | Procedures | [place] | Phone: | | | | | MRI Knee | [address] | [phone] | | | | | Left wo | Phone: | Fax: | | | | | Contrast | [phone] | [phone] | | | | | | Fax: | | | | | | | [phone] | | +--------+--------+ + + + + [...] [place] | | | | | | [address] | [address] Phone: | | | | | | Phone: | [phone] | | | | | | [phone] | Fax: | | | | | | Fax: | [phone] | | | | | | [phone] | | +--------+ + + + + + Encounter Details +--------+---------+ + + + | Date | Type | Department | Care Team | Description | +--------+---------+ + + + | 06/13/ | Office | [facility] | [place], | Nerve entrapment of | | 2016 | Visit | [facility] | MD [address] | lower limb, left | | | | [address] | (Primary Dx) | | | | [address] [place] [address] | [place] | | | | | [address] | [phone] | | | | | [phone] | | | +--------+---------+ + + + [...] NRS Pain Meds 2 OSWESTRY INDEX EQ5D 32848 VAS 60 SURGICAL RISK FACTORS: Diabetes No BMI Body mass index is 22.61 kg/(m^2). 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 S/P LT Knee Replacement 2011 in [place] with Revision surgery [address] Granados. She continues t o have significant pain lateral aspect LT knee. The [facility] EMR was reviewed for relevant information regarding [...] was spent in face to fa ce securities counselor and advice to patient. This medical [...]
--- OUTSIDE RECORDS SUMMARY | ~2019-01-07 | XMS | Encounter Summary ---
Demographics + + + | Address | [address] | | | [place] [address] | + + + | Home Phone [...] | Author | [facility] | | | and [place] | + + + | Organization | [facility] | | | [...] Providers + +------+ + | Care Supervisor Lump Room Name | Role | Phone | + [...] | | | | | [address] [place] | [address] | | | | | [address] | [place] [address] | | | | | [phone] | [phone] | | | | | | | [...] through Care Everywhere.THRUSH, ORAL (Y EAST INFECTION) (DOMINICAN)documented in this encounter Medications at Time of [...]
--- OUTSIDE RECORDS SUMMARY | ~2019-01-07 | XMS | Encounter Summary ---
Demographics + + + | Address | [address] | | | [place] [address] | + + + | Home Phone [...] [place], | | | | | [place] [address] | | + + + + + Care Team Providers + +------+ + | Care Laser Machine Operator Name | Role | Phone [...] as of this encounter Progress Notes Interface, Podiatric Medicine Professor In - 02/28/2006 3:08 AM PSTCLINIC DATE: [...] recently by a family medicine service in [place], [place]. 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 Richie Her M.D. Clearance Diver, Department of Orthopedics and Rehabilitation DANELLE/emily P documented in this encounter Plan of Treatment Not on filedocumented as of this encounter Visit Diagnoses Not on filedocumented in this encounter"
--- OUTSIDE RECORDS SUMMARY | ~2019-01-07 | XMS | Encounter Summary ---
Demographics + + + | Address | [address] | | | [place] [address] | + + + | Home Phone [...] | Author | [facility] | | | and [place] | + + + | Organization | [facility] | | | and [place] [...] Providers + +------+ + | Care Senior Product Development Manager Name | Role | Phone | + +------+ + | Timothy Elmore | PCP | | + +------+ + Reason for Visit + + + | Reason | Comments | + + + | Establish Care | SOFTWARE SALES REPRESENTATIVE : Lumbar Spine : Referred by PCP [...] | | and other | [place] | [address] | | | | | examinations | [address] | Phone: | | | | | of body | Phone: | [phone] | | | | | structure | [phone] | Fax: | | | | | Procedures | | [phone] | | | | | CSJ-06/29 | | | +--------+--------+ + + + + Encounter Details +--------+---------+ + + + | Date | Type | Department | Care Team | Description | +--------+---------+ + + + | 08/09/ | Office | [facility] | Tapan Bragg | Left foot drop | | 2015 | Visit | [facility] | MD Felisa [address] | (Primary Dx) | | | | [address] [facility] | [address] [place], | | | | | [address] [place] | [place] | | | | | [address] | [phone] | | | | | [phone] | | | +--------+---------+ + + + [...] condition. (Will leave this up to Dr. lEmore's discretion) RTC prn Rationale for this approach [...]
--- OUTSIDE RECORDS SUMMARY | ~2019-01-07 | XMS | Encounter Summary ---
Demographics + + + | Address | [address] | | | [place] [address] | + + + | Home Phone [...] [place], | | | | | [place] [address] | | + + + + + Care Team Providers + +------+ + | Care Dry Color Tester Name | Role | Phone | [...] [id number] | | | | | | [place], [place] | | | | | | [address] | | | | | | [phone] | | | +--------+ + + + [...] | + + + + + | [facility] | [address] | [place] [address] | | | PATHOLOGY | [address] [...] | + + + + + | [facility] | [address] | [place] [address] | | | PATHOLOGY | [address] [...] | + + + + + | [facility] | [address] | [place] [address] | | | PATHOLOGY | [address] [...] | + + + + + | [facility] | [address] | [place] [address] | | | PATHOLOGY | [address] [...] | + + + + + | [facility] | [address] | [place] [address] | | | PATHOLOGY | [address] [...] | + + + + + | [facility] | [address] | [place] [address] | | | PATHOLOGY | [address] | | | + + + + + documented in this encounter Visit Diagnoses Not on filedocumented in this encounter"
--- OUTSIDE RECORDS SUMMARY | ~2019-01-07 | XMS | Encounter Summary ---
Demographics + + + | Address | [address] | | | [place] [address] | + + + | Home Phone [...] Author | [facility] | | | and [place] | + + + | Organization | [facility] | | | and [place] [...] Team Providers + +------+ + | Care Filler Mixer Name | Role | Phone | [...] | | [address] | [place] [address] | | | | | [address] [place] [place] | [phone] | | | | | [address] | | | | | | [phone] | | | +--------+ + + + [...]
--- OUTSIDE RECORDS SUMMARY | ~2019-01-07 | XMS | Encounter Summary ---
Demographics + + + | Address | [address] | | | [place] [address] | + + + | Home Phone [...] [place], | | | | | [place] [address] | | + + + + + Care Team Providers + +------+ + | Care Pin Attacher Name | Role | Phone | + +------+ + PCP | Unavailable | + +------+ + Encounter Details +--------+ + + + + | Date | Type | Department | Care Team | Description | +--------+ + + + + | 01/01/ | Office | UNKNOWN DEPARTMENT | Note, Outpatient | Progress Note | | 1993 | Visit-Trans | [address] [facility] | Clinic | | | | [place] | [address] | | | | | | [place], [place] | | | | | | [address] | | | +--------+ + + + [...] as of this encounter Progress Notes Interface, Floor Tiling Professional In - 06/14/2006 5:08 AM PDT [...] after the above studies. Faisal Grijalva M.D. Distresser, Neurology JQ:bony cc: DICK ACOSTA MD [address] [address] documented in this encounter Plan of Treatment Not on filedocumented as of this encounter Visit Diagnoses Not on filedocumented in this encounter"
--- OUTSIDE RECORDS SUMMARY | ~2019-01-07 | XMS | Encounter Summary ---
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 She has been five times and five [...] bowel sounds. No hepatosplenomegaly noted. Rectal deferred. FINISHER ACCORDION EXAMINATION: Deferred. EXTREMITIES: Clear of clubbing, cyanosis, [...] M.D. Resident, Internal Medicine Kaleb Velásquez M.D. Sanitizer, Medicine TORI/tesfaye cc: Wallace Szymanski M.D. Sanitizer, Internal Medicine Monroe Pruitt M.D. Sanitizer, Anesthesiology Director of Pain Management Center cc: documente d in this encounter Plan of Treatment Not on filedocumented as of this encounter Visit Diagnoses Not on filedocumented in this encounter
--- OUTSIDE RECORDS SUMMARY | ~2019-01-07 | XMS | Encounter Summary ---
Demographics + + + | Address | [address] | | | [place] [address] | + + + | Home Phone [...] [place], | | | | | [place] [address] | | + + + + + Care Team Providers + +------+ + | Care Installation Tech Name | Role | Phone | + +------+ + PCP | Unavailable | + +------+ + Encounter Details +--------+ + + + + | Date | Type | Department | Care Team | Description | +--------+ + + + + | 10/09/ | Office | General Internal | Note, Outpatient | Progress Note | | 1994 | Visit-Trans | Medicine [address] | Clinic | | | | [place] | [address] | | | | | | Mailcode: L475 | | | | | | Outpatient Clinic | | | | | | [address] | | | | | | [place], [place] | | | | | | [address] | | | | | | [phone] | | | +--------+ + + + [...] as of this encounter Progress Notes Interface, Seismograph Operator Helper In - 06/01/2006 3:00 AM PDT [...] actively in her social programs including attending worship and bible-study sessions. CURRENT MEDICATIONS: Current medications [...] a very low level with her boyfriend's [employer] business. 3. Increasing social function. This seems to be quite stable and she now is able to understand the effect that anger has on her pain. Ms. [place] will no longer be able to be seen the Pain Management Clinic at [facility] because of a change in insurance coverage. She will be cared for at [facility]. She has requested that her Pain Management Clinic progress notes as well as her Orthopedic progress notes from [facility] be sent to that institution. Ms. Evans has done well after arriving receiving a relatively high dose of oral opioids, Vicodin approximately eight per day. She has been titrated off opioids, and her pain level has decreased from a score of 7-8/10 to currently 0-1/10. I believe that her prognosis is quite good in terms of her chronic pain. John Mulligan M.D. Senior Nurse Manager, Anesthesiology Director, Pain Management Services PK:bony cc: CAROLINE YOON MD UPHOLSTERY TECH ORTHOPEDICS [facility] documented in this encounter Plan of Treatment Not on filedocumented as of this encounter Visit Diagnoses Not on filedocumented in this encounter"
--- OUTSIDE RECORDS SUMMARY | ~2019-01-07 | XMS | Encounter Summary ---
Demographics + + + | Address | [address] | | | [place] [address] | + + + | Home Phone [...] [place], | | | | | [place] [address] | | + + + + + Care Team Providers + +------+ + | Care Social Media Job Titles Name | Role | Phone | + [...] Rd | | | | | | [place] | | | | | | [address] | | | +--------+ + + + [...] of this encounter Progress Notes Interface, Machine Operator Assistant In - 06/14/2006 5:08 AM PDT [address] [address] [facility] January 08, 1994 DARYL ELLIS PH D [facility] [address] [address] RE:Litzy [place] MR:[id number] Ellis: Thank [...] any further information. Sincerely, Faisal Grijalva M.D. Urologist Md, Neurology PIYUSH:sailaja January 09, 1996 documented in this encounter Plan of Treatment Not on filedocumented as of this encounter Visit Diagnoses Not on filedocumented in this encounter"
--- OUTSIDE RECORDS SUMMARY | ~2019-01-07 | XMS | Encounter Summary ---
Demographics + + + | Address | [address] | | | [place] [address] | + + + | Home Phone [...] [place], | | | | | [place] [address] | | + + + + + Care Team Providers + +------+ + | Care Wrong Address Clerk Name | Role | Phone | [...] as of this encounter Progress Notes Interface, Blocker Hand In - 02/28/2006 3:08 AM [facility] [place] [address] [place] [address] or November 05, 1997 OLEG PUGH MD [address] [facility] [address] RE: LITZY EVANS MR#: [id number] : 51 [...] November with Dr. Kaleb Velásquez here at [facility]. Therefore, I will send you a copy of this letter, as well as Dr. Velásquez. Please allow me to briefly review Ms. [place]' history, as well as my evaluations, findings, and suggestions. Ms. [place] is a 42-year-old woman with a longstanding history of low back pain who had been previously treated at the [facility] prior to my arrival at [facility]. She states that she has [...] tried a variety of medications including Tegretol, [place], Amitriptyline, and other antidepressants. CURRENT MEDICATIONS: 1. 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 She smokes one pack of [...] also with some difficulty. Romberg is negative. Sadmwa-qznd-pzozai is normal. On examination of her chest [...] normal limits." IMPRESSION: 1. Fibromyalgia by 1990 [place] [employer] criteria. 2. Significant psychiatric [...] her care from Internal Medicine here at [facility], would be for her to [...] establish care with Dr. Velásquez here at [facility], I would be happy to discuss her care with him at that point. In the meantime, I have nothing additional or specific to offer for Ms. [place]' care. Thank you very much for your referral of Ms. Evans to the Pain Management Center here at [facility]. If you have any questions or concerns, please do not hesitate to give me a call at [phone]. Monroe Pruitt M.D. Cat Driver, Anesthesiology Director of Pain Management Center BRS:mau cc: Kaleb Velásquez M.D. Cat Driver, Medicine Richie Her, M.D. Cat Driver, Department of Orthopedics and Rehabilitation Kaleb Velásquez M.D. Cat Driver, Medicine Richie Her M.D. Cat Driver, Department of Orthopedics and Rehabilitation documented in this encounter Plan of Treatment Not on filedocumented as of this encounter Visit Diagnoses Not on filedocumented in this encounter
--- OUTSIDE RECORDS SUMMARY | ~2019-01-07 | XMS | Encounter Summary ---
Demographics + + + | Address | [address] | | | [place] [address] | + + + | Home Phone [...] [place], | | | | | [place] [address] | | + + + + + Care Team Providers + +------+ + | Care Single Wire Saw Operator Name | Role | Phone | + +------+ + PCP | Unavailable | + +------+ + Encounter Details +--------+ + + + + | Date | Type | Department | Care Team | Description | +--------+ + + + + | 09/26/ | Results | | Other, Faculty | | | 1993 | Only | | [phone] | | +--------+ + + + + [...]
--- OUTSIDE RECORDS SUMMARY | ~2019-01-07 | XMS | Encounter Summary ---
Demographics + + + | Address | [address] | | | [place] [address] | + + + | Home Phone [...] Author | [facility] | | | and [place] | + + + | Organization | [facility] | | [...] Team Providers + +------+ + | Care Starch And Prosize Mixer Name | Role | Phone | [...] | [address] | [address] | pulmonary disease, | | | | [place] [address] | [place] | unspecified COPD | | | | [address] | [address] | type (HCC) (Primary | | | | [phone] | [phone] | Dx) | +--------+ + + + [...]
--- OUTSIDE RECORDS SUMMARY | ~2019-01-07 | XMS | Encounter Summary ---
Demographics + + + | Address | [address] | | | [place] [address] | + + + | Home Phone [...] + + | Author | [facility] | | | and [place] | + + + | Organization | [facility] | | | and [...] Providers + +------+ + | Care Merchandise Clerk Name | Role | Phone | [...] | 12/23/ | Clinical | [facility] | | Elevated cortisol | | 2015 | Support | [place] | | level (HCC) (Primary | | | | ENDOCRINOLOGY [address] | | Dx); Decreased | | | | [address] | | cortisol level ([facility]) | | | | [address] [place] | | | | | | [address] | | | | | | [phone] | | | +--------+ + + + [...] | Right | | Intramuscular, ONCE, [facility] 12/23/14 | | AM PST | [...]
--- OUTSIDE RECORDS SUMMARY | ~2019-01-07 | XMS | Encounter Summary ---
Demographics + + + | Address | [address] | | | [place] [address] | + + + | Home Phone [...] [place], | | | | | [place] [address] | | + + + + + Care Team Providers + +------+ + | Care Pigs Feet Cleaner Name | Role | Phone | [...] [id number] | | | | | | [place], [place] | | | | | | [address] | | | | | | [phone] | | | +--------+ + + + [...] HOSPITAL | [address] | [place] [address] | | | PATHOLOGY | [address] | | | + + + + + documented in this encounter Visit Diagnoses Not on filedocumented in this encounter"
--- OUTSIDE RECORDS SUMMARY | ~2019-01-07 | XMS | Encounter Summary ---
Demographics + + + | Address | [address] | | | [place] [address] | + + + | Home Phone [...] [place], | | | | | [place] [address] | | + + + + + Care Team Providers + +------+ + | Care Filling Hauler Weaving Name | Role | Phone | + [...] as of this encounter Progress Notes Interface, Mitten Sewer In - 02/12/2006 3:04 AM PSTCLINIC DATE: [...]
--- OUTSIDE RECORDS SUMMARY | ~2019-01-07 | XMS | Clinical Summary ---
Demographics + + + | Address | [address] | | | [place] [address] | + + + | Home Phone [...] Author | [facility] | | | and [place] | + + + | Organization | [facility] | | | [...] Providers + +------+ + | Care Supervisor Insecticide Name | Role | Phone | + [...] +--------+ +---------+--------+ | MEDICARE | MEDICA | [id number] | 03/21/18 | [phone] | | Medica | | | RE | | 96-Pre | 5 | | re | | | PART A | | sent | | | | | | AND B | | | | | | + +--------+ +--------+ +---------+--------+ | MEDICAID [place] | MEDICA | [id number] | | [phone] | | Medica | [...] | 4 | [phone] | [place] [address] | | | anastasiya | | | 7 (Home) | | + +--------+ +--------+ + + Advance Directives + + + + + | Type | Date Recorded | Patient | Explanation | | | | Munitions Handler | | + + + + + | Power of | | | | | Land Degradation Analyst | | | | + + + [...]
--- OUTSIDE RECORDS SUMMARY | ~2019-01-07 | XMS | Encounter Summary ---
Demographics + + + | Address | [address] | | | [place] [address] | + + + | Home Phone [...] Author | [facility] | | | and [place] | + + + | Organization | [facility] | [...] Providers + +------+ + | Care Hand Trimmer Name | Role | Phone | [...] | 2015 | | [address] [facility] [facility] | [address] | prep) | | | | [address] | [address] | | | | | [place] | [address] | | | | | [address] | [phone] | | | | | [phone] | | | +--------+ + + + [...]
--- OUTSIDE RECORDS SUMMARY | ~2019-01-07 | XMS | Encounter Summary ---
Demographics + + + | Address | [address] | | | [place] [address] | + + + | Home Phone [...] + + + | Author | [facility] | | | and [place] | + + + | Organization | [facility] [...] Team Providers + +------+ + | Care Residential Construction Instructor Name | Role | Phone | [...] | | | | | y | [address] | | | | | | Procedures | Phone: | | | | | | evaluate and | [phone] | | | | | | treat | | | +--------+--------+ + + + + Encounter Details +--------+---------+ + + + | Date | Type | Department | Care Team | Description | +--------+---------+ + + + | 12/14/ | Office | [facility] [place] [facility] | Joe Flores, | Pancreatic | | 2015 | Visit | [place] | [address] | insufficiency | | | | ENDOCRINOLOGY [address] | [address] | (Primary Dx); | | | | [address] | [place] [address] | Diarrhea; Loss of | | | | [address] [place], [place] | [phone] | appetite; Weight | | | | [address] | | loss | | | | [phone] | | | +--------+---------+ + + + [...] some workup that has been done at [facility]. I received a note from a surgical evaluat ion she had at [facility]. She has also had gastroenterology evaluation at [facility] as well, I do not have [...] syndrome. Furthermore, I would suggest to [facility] provider that he screen and evaluate [...] | | CORE | | | | [place] [address] | | LABORATORY | | | | [...] + + | [address] | [address] [facility] | [place] [address] | [phone] | | CORE LABORATORY (I) | | [...] | [address] | [place] [address] | [phone] | | CORE LABORATORY (I) | | [...] | | CORE | | | | [address] | | LABORATORY | | | | [...] + + | [address] | [address] [facility] | [place] [address] | [phone] | | CORE LABORATORY (I) | | [...] | | (I) | | | | [facility].Performed by | | | | [...] | [address] | [place] [address] | [phone] | | CORE LABORATORY (I) | | [...] | CORE | | | | [place] [address] | | LABORATORY | | | | [...] + + | [address] | [address] [facility] | [place] [address] | [phone] | | CORE LABORATORY (I) | | [...] | | CORE | | | | [address] | | LABORATORY | | | | [...] + + | [address] [address] | [address] [facility] | [place] [address] | [phone] | | CORE LABORATORY (I) | | [...]
--- OUTSIDE RECORDS SUMMARY | ~2019-01-07 | XMS | Encounter Summary ---
Demographics + + + | Address | [address] | | | [place] [address] | + + + | Home Phone [...] [place], | | | | | [place] [address] | | + + + + + Care Team Providers + +------+ + | Care Bell Valet Name | Role | Phone | + +------+ + PCP | Unavailable | + +------+ + Encounter Details +--------+ + + + + | Date | Type | Department | Care Team | Description | +--------+ + + + + | 10/09/ | Office | General Internal | Note, Outpatient | Progress Note | | 1994 | Visit-Trans | Medicine [address] | Clinic | | | | [place] | [address] | | | | | | Mailcode: L475 | | | | | | Outpatient Clinic | | | | | | [address] | | | | | | [place], [place] | | | | | | [address] | | | | | | [phone] | | | +--------+ + + + [...] as of this encounter Progress Notes Interface, Help Desk Engineer In - 06/01/2006 3:00 AM PDT [...] actively in her social programs including attending latter-day and bible-study sessions. CURRENT MEDICATIONS: Current medications [...] a very low level with her boyfriend's [employer] business. 3. Increasing social function. This seems to be quite stable and she now is able to understand the effect that anger has on her pain. Ms. Evans will no longer be able to be seen the Pain Management Clinic at [facility] because of a change in insurance coverage. She will be cared for at [facility]. She has requested that her Pain Management Clinic progress notes as well as her Orthopedic progress notes from [facility] be sent to that institution. [...] of her chronic pain. John Mulligan M.D. Vamp Strap Ironer, Anesthesiology Director, Pain Management Services PK:bony cc: CAROLINE YOON MD FLITCH HANGER [facility] documented in this encounter Plan of Treatment Not on filedocumented as of this encounter Visit Diagnoses Not on filedocumented in this encounter"
--- OUTSIDE RECORDS SUMMARY | ~2019-01-07 | XMS | Encounter Summary ---
Demographics + + + | Address | [address] | | | [place] [address] | + + + | Home Phone [...] [place], | | | | | [place] [address] | | + + + + + Care Team Providers + +------+ + | Care Robotics Engineer Name | Role | Phone | [...] as of this encounter Progress Notes Interface, Brush Polisher In - 02/07/2006 1:09 AM PSTCLINIC DATE: [...] or throat itching. She has been taking zaic-ghd-qpqankd pseudoephedrine, but has not noted much relief. [...] Ms. Evans is planning to move to [place]. We will forward her records as soon [...]
--- OUTSIDE RECORDS SUMMARY | ~2019-01-07 | XMS | Encounter Summary ---
Demographics + + + | Address | 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 Moreover, she says this is an important [...] or from any other provider at [facility]. She has violated our contract as set forth in a previous note. She understands this. Moreover, she understands that her chart will be flagged in the [facility] system so that she cannot receive [...] M.D. Wallace Szymanski M.D. Anabelle Garcia M.D. TROI/fernando documented in this encounter Plan of Treatment Not on filedocumented as of this encounter Visit Diagnoses Not on filedocumented in this encounter
--- OUTSIDE RECORDS SUMMARY | ~2019-01-07 | XMS | Encounter Summary ---
Demographics + + + | Address | [address] | | | [place] [address] | + + + | Home Phone [...] [place], | | | | | [place] [address] | | + + + + + Care Team Providers + +------+ + | Care Supervisor Felting Name | Role | Phone | + +------+ + PCP | Unavailable | + +------+ + Encounter Details +--------+ + + + + | Date | Type | Department | Care Team | Description | +--------+ + + + + | 06/26/ | Office | General Internal | Note, Outpatient | Progress Note | | 1994 | Visit-Trans | Medicine [address] | Clinic | | | | [place] | [address] | | | | | | Mailcode: L475 | | | | | | Outpatient Clinic | | | | | | [address] | | | | | | [place], [place] | | | | | | [address] | | | | | | [phone] | | | +--------+ + + + [...] as of this encounter Progress Notes Interface, Sole Rounder In - 06/06/2006 5:07 AM PDT CLINIC [...] addition, she remains active in her local taoism and is in the process of moving [...] 2. Bladder dysfunction, resolved. John Mulligan M.D. Hot Pipe Gauger, Anesthesiology Director, Pain Management Services HUI /efren A documented in this encounter Plan of Treatment Not on filedocumented as of this encounter Visit Diagnoses Not on filedocumented in this encounter"
[~2019-01-07 09:53] MED LIST changes: +LIDOCAINE1 EACH TD; +NICORETTE4 M2 BUCCAL; +NICOTINE PATCH1 EAC1 TD; +OXYCODONE HCL5 MG PO; +VITAMIN D-40010 MCG PO
--- OUTSIDE RECORDS SUMMARY | 2019-01-07 09:56 | XMS ---
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 LLAMAS Security R Programmer Events No recent Security Events currently on file CRITERIA MET - Group Notification - [facility] - Has Care Guidelines - PDMP - [facility] - 2 Visits in 30 Days CARE PROVIDERS FRANTZ CONLEY Physician Chief Controller: Medical Current PHONE: Unknown [facility] 11/11/2017-Current PHONE: [phone] Ramos Granados MD PHONE: Unknown DR LY MACIAS Primary [facility] 02/16/2016-Current PHONE: [phone] Guidelines Source: Esteban - Lucila Guidelines Date: 08/04/2018 Care Coordination: Receives mental health services with [facility].\T\nbsp; Please contact [facility] with mental health concerns.\T\nbsp; [place]:\T\nbsp; [phone]\T\nbsp; [place]:\T\nbsp; [phone]. Care History Medical/Surgical 12/25/2018 [facility] - W RECEIVED INPATIENT -CASE MANAGEMENT REFERRAL - PATIENT NO LONGER HAS A NEBULIZER MACHINE AND LOST IT- W HAS REQUESTED A [facility] REVIEW TO SEE IF PATIENT CAN BE ELIGIBLE FOR ANOTHER NEBULIZER MACHINE COVERED. 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 - FOLLOW UP AFTER PATIENT DISCHARGE-PATIENT WOULD BENEFIT FROM A HOME VISIT. 08/04/2018 [facility] - PATIENT HAS ALL OF HER PSYCH MEDICATIONS MANAGED BY [facility]. - PATIENT HAS PCP DR MACIAS IN [place]. - PATIENT DOES HAVE CASE MANAGEMENT THRU [facility]- PAST WAS LAST SEEN BY CASE MANAGEMENT [...] ED please contact Community Health WorkerKaylynn at [phone]. These are guidelines and the provider should exercise clinical judgment when providing care. E.D. VISIT COUNT (12 MO.) 5 [facility]. TOTAL 5 NOTE: Visits indicate total known visits. ED/UCC VISIT TRACKING (12 MO.) 01/07/2019 09:53 [facility] TYPE: Emergency COMPLAINT: - WEAKNESS 12/23/2018 14:07 [facility] TYPE: Emergency COMPLAINT: - LEFT HIP FRACTURE 08/03/2018 13:06 [facility] TYPE: Emergency [...] - Nicotine dependence, unspecified, uncomplicated - Other prison (current) drug therapy 03/22/2018 02:02 [facility] TYPE: Emergency COMPLAINT: - MOUTH SWELLING INPATIENT VISIT TRACKING (12 MO.) 12/30/2018 07:00 [facility] TYPE: Medical Surgical COMPLAINT: - LEFT HIP FRACTURE DIAGNOSES: - Chronic respiratory failure with hypoxia - Unsp place in unsp non-institut (private) residence as place - Pleural effusion, not elsewhere classified - Chronic obstructive pulmonary disease, unspecified - Essential (primary) hypertension - Gastro-esophageal reflux disease without esophagitis - Chronic pain syndrome - Major depressive disorder, single episode, unspecified - Allergy status to oth drug/meds/biol subst status - Other prison (current) drug therapy - Other nonspecific abnormal finding of lung field - Unsteadiness on feet - Displ midcervical fx l femur, subs for clos fx w routn heal - Fall on same level, unspecified, subsequent encounter - Other specified postprocedural states - Nicotine dependence, unspecified, uncomplicated 12/23/2018 18:29 [facility] TYPE: Medical Surgical COMPLAINT: - LEFT HIP FRACTURE DIAGNOSES: - Other nonspecific abnormal finding of lung field - Other acute postprocedural pain - Essential (primary) hypertension - Chronic obstructive pulmonary disease, unspecified - Nicotine dependence, cigarettes, uncomplicated - Chronic obstructive pulmonary disease, unspecified - Other nonspecific abnormal finding of lung field - Major depressive disorder, single episode, unspecified - Nicotine dependence, cigarettes, uncomplicated - Other acute postprocedural pain - Opioid dependence, uncomplicated - Chronic respiratory failure with hypoxia - Abnormal levels of other serum enzymes - Gastro-esophageal reflux disease without esophagitis - Chronic pain syndrome - Allergy status to oth drug/meds/biol subst status - 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, left femur, init - Chronic pain syndrome - Unsp intracapsular fracture of left femur, init for clos fx - Allergy status to oth drug/meds/biol subst status - Other prison (current) drug therapy - Major depressive disorder, single episode, unspecified - Essential (primary) hypertension - Chronic respiratory failure with hypoxia - 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, left femur, init - senior living (current) use of inhaled steroids - Opioid dependence, uncomplicated - intermediate card tender (current) use of inhaled steroids - Abnormal levels of other serum enzymes - Gastro-esophageal reflux disease without esophagitis - Other intermediate card tender (current) drug therapy 03/22/2018 02:03 [facility] TYPE: Observation COMPLAINT: - ANGIOEDEMA DIAGNOSES: - Emphysema, unspecified - intermediate card tender (current) use of inhaled steroids - Essential (primary) hypertension - Nicotine dependence, cigarettes, uncomplicated - Fibromyalgia - Unspecified mood [affective] disorder - Rheumatoid arthritis, unspecified - Allergy status to oth drug/meds/biol subst status - Polyneuropathy, unspecified - Angioneurotic edema, initial encounter - Localized swelling, mass and lump, head - senior living (current) use of opiate analgesic - Other prison (current) drug therapy [email or web address]
== END 2019-01-07 16:30 | disposition short-term general hospital (02) ==
LOC: ED 09:53
DX: I31.3 Pericardial effusion (noninflammatory) (principal); R91.8 Other nonspecific abnormal finding of lung field; D64.9 Anemia, unspecified; F17.200 Nicotine dependence, unspecified, uncomplicated; Z88.8 Allergy status to other drugs, medicaments and biological substances; Z88.6 Allergy status to analgesic agent; Z79.899 Other long term (current) drug therapy
CPT/HCPCS: 71045; 71260; 80053; 83880; 85025; 94640; 96360; 99285-25; G0480; J7030; Q9967

== ENCOUNTER 2019-02-03 00:04 | Emergency (ER) | payer MEDICARE, OTHER ==
[~2019-02-03] VITALS: Ht 165.1 cm; Wt 58.1 kg
--- OUTSIDE RECORDS SUMMARY | ~2019-02-03 | XMS | Encounter Summary ---
Demographics + + + | Address | [address] | | | [place] [address] | + + + | Home Phone | | + + + | Preferred Language | Unknown | + + + | Marital Status | Single | + + + | Orthodox Affiliation | Unknown | + + + | Race | White | + + + | Ethnic Group | Not or | + + + Author + + + | Author | [facility] | + + + | Organization | [facility] | + + + | Address | Unknown | + + + | Phone | Unavailable | + + + Support + + + + + | Name | Relationship | Address | Phone | + + + + + | Zaida Putnam | ECON | [address] | | | | | [place], | | | | | [place] [address] | | + + + + + Care Team Providers + +------+ + | Care Supervisor Ride Assembly Name | Role | Phone | + +------+ + PCP | Unavailable | + +------+ + Encounter Details +--------+ + + + + | Date | Type | Department | Care Team | Description | +--------+ + + + + | 12/25/ | Office | UNKNOWN DEPARTMENT | Note, Outpatient | Progress Note | | 1993 | Visit-Trans | [address] | Clinic | | | | [place] | [address] | | | | | | [place], [place] | | | | | | [address] | | | +--------+ + + + [...] as of this encounter Progress Notes Interface, Flooring Grader In - 06/14/2006 5:08 AM PDT CLINIC DATE: 12/25/93 NEUROLOGY CLINIC Ms. Evans is a 38 year old woman with multiple complaints including lower extremity numbness. HISTORY OF PRESENT ILLNESS: The patient reports that she was well until 1.5 years ago when she developed back pain. However, there are notes in the [facility] chart reflecting evaluation for this problem as far back as 1976, and the patient herself reports that she has not been able to work for four years. In any event she reports that her problem started with low back pain and spasms, eventually she developed upper back periscapular pain as well. The pain is relatively constant although it was typically worsened with activity. She reports that she has had MRI's of her entire spine and excessive x-rays in the past. She was treated by a chiropractor from August to October of 1992 with no relief. She was given some physical therapy exercises to do, but she reports that they make her worse rather than better. She primarily uses a heating pad and rest. In addition to the pain she reports focal areas of increased temperature in her left upper extremity, on her right face and on the arch of her right foot. She also reports some twitching of her right neck and some involuntary shaking of her head. She reports that her right leg quivers on occasion. She reports that her legs buckle on her. In addition she reports migratory numbness in her lower extremities. She reports that the lateral aspect of the extremities is more involved than the medial aspect. She denies bowel or bladder complaints. MEDICATIONS: 1. Baclofen 1 tid. 2. Effexor. 3. Vicodin. 4. Generic antihistamine. PAST MEDICAL HISTORY: 1. She reports bilateral carpal tunnel surgery in January of 1993 which relieved some numbness in her hands. 2. She reports an episode at the age of 22 when she had diffuse pain and weakness which was followed for six months as possible arthritis, but ultimately was never diagnosed. 3. 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 The right lower extremity is now shorter than the left as documented by a recent scanogram. 4. Incidentally noted spina bifida occulta. 5. Partial hysterectomy. 6. Peptic ulcer disease with history of GI bleed. 7. "Borderline asthma". 8. Breast implants in 1974. 9. History of right knee trouble with arthroscopic surgery. ALLERGIES: She gets hives with Motrin, she has GI distress with other nonsteroidals. She is intolerant of Elavil because it makes "her feel crazy". HABITS: She smokes two packs per day. She does not drink alcohol. 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 She is , currently living with a boyfriend/roommate in [place]. She is subsisting on Welfare, she has SSI pending. She has a 17 year old son who is in good health and lives with his father. FAMILY HISTORY: Her father was in good health until he was shot robbing a tavern. Her mother of lung cancer at the age of 51. She has no siblings. PHYSICAL EXAMINATION: General - This is a well developed, well nourished woman in no acute distress. Her weight is 165.5 pounds, BP 116/80, heart rate is 86 and regular. HEENT: Normocephalic and atraumatic. The sinuses are nontender to percussion. Temporal arteries are pulsatile and nontender. External ocular and oropharyngeal exams are unremarkable. NECK: The range of motion is full, there is no cervical muscle spasm. Spurling's sign produces neck pain, but no radicular pain. There are no carotid bruits. CHEST: Clear to auscultation. CV: Regular rate and rhythm without murmur. EXTREM: The range of motion is full in all joints and there are no joint deformities or effusions. The right leg appears to be about an inch shorter than the left leg. BACK: There are tender points overlying paraspinal muscles at all levels as well as the trapezius muscles bilaterally. There is no paraspinal spasm, however, and the patient is able to bend forward and touch the floor. NEURO: Mental status - The patient is alert and oriented, her language functions are intact. She is able to provide a fair history. She is cooperative with examination and does not exhibit any overtly functional findings. Cranial nerves - Fundi are benign, pupils are equal, round and reactive to light. Visual martin are full to confrontation. Extraocular movements are full and conjugate. There is no nystagmus. There is no I&L. The facial movements are intact and symmetric. The hearing is intact to finger rub bilaterally. The palate and tongue move normally. There is no dysarthria. Sternocleidomastoid is 5/5 bilaterally. Motor examination - There is no pronator drift, fine motor movements are slightly slowed on the left and normal on the right. Strength is 5/5 both proximally and distally and bulk and tone are within normal limits in all four extremities. Deep tendon reflexes - Biceps, right 2, left 2; triceps, right 2, left 2; brachioradialis, right 2, left 2; patellar, right 2, left 2; ankle jerk, right 2, left 2; plantar responses downgoing bilaterally. Sensory examination - Sensation is largely intact in the upper extremities. In the lower extremities sensation to all modalities in the feet is completely intact. In the legs, however, sensation is diminished to pinprick and to light touch on the lateral aspect of both lower extremities from the ankle to the hip. The medial aspect has slightly diminished sensation to these modalities. Proprioception and vibration are intact. Coordination - Finger to nose, heel to roper, casual gait, tandem gait, heel walk and toe walk are all within normal limits. RADIOLOGY: There are no radiologic studies at this institution available for review other than the scanogram and mammograms. IMPRESSION: Somatization disorder versus lumbosacral polyradiculopathy versus multiple sclerosis. I would strongly favor the first possibility and discussed this frankly with the patient. She was remarkably open-minded about this possibility and indicated a willingness to pursue it if the other possibilities could be more definitively ruled out. She was informed that we will do a fixed number of studies, specifically brain MRI and lower extremity nerve conduction studies, and if the findings are negative we will conclude that somatization is the problem. She was also informed that we will not provide any narcotic medications through this clinic. PLAN: 1. Nerve conduction studies of lower extremities. 2. Brain MRI to rule out MS. 3. Return to clinic after the above studies are completed. If they are negative as expected, we anticipate referral to [facility] for management of somatization disorder. Faisal Grijalva M.D. Supervising Librarian, Neurology PIYUSH/ifrah cc: LEILANI ACOSTA MD [address] [place] [id number] documented in this encounter Plan of Treatment Not on filedocumented as of this encounter Visit Diagnoses Not on filedocumented in this encounter
--- OUTSIDE RECORDS SUMMARY | ~2019-02-03 | XMS | Encounter Summary ---
Demographics + + + | Address | [address] | | | [place] [address] | + + + | Home Phone | | + + + | Preferred Language | Unknown | + + + | Marital Status | Single | + + + | Mandaeism Affiliation | Unknown | + + + | Race | White | + + + | Ethnic Group | Not or | + + + Author + + + | Author | [facility] | + + + | Organization | [facility] | + + + | Address | Unknown | + + + | Phone | Unavailable | + + + Support + + + + + | Name | Relationship | Address | Phone | + + + + + | Zaida Putnam | ECON | [address] | | | | | [place], | | | | | [place] [address] | | + + + + + Care Team Providers + +------+ + | Care Data Developer Name | Role | Phone | + +------+ + PCP | Unavailable | + +------+ + Encounter Details +--------+ + + + + | Date | Type | Department | Care Team | Description | +--------+ + + + + | 09/04/ | Office | General Internal | Note, Outpatient | Progress Note | | 1994 | Visit-Trans | Medicine [address] | Clinic | | | | [place] | [facility] | | | | | | Mailcode: [id number] | | | | | | Outpatient Clinic | | | | | | [facility] | | | | | | [place], [place] | | | | | | [address] | | | | | | [phone] | | | +--------+ + + + [...] as of this encounter Progress Notes Interface, Shipping Clerk In - 06/03/2006 2:00 AM PDT CLINIC DATE: 09/04/94 PAIN MANAGEMENT CLINIC - PROGRESS NOTE CHIEF COMPLAINT: Low back pain. INTERVAL HISTORY: Ms. Evans noticed increased left calf pain on August 28. She describes this pain as a tingling, shooting, nerve-kind of pain. This pain lasted on and off for less than a day, and the patient treated it by rest without taking additional medications. Ms. Evans has not been attending her worship on Sundays but continues to go to local worship meetings. She denies sedation, and nausea and vomiting, but does notice a "heaviness" of her muscles diffusely. OBJECTIVE: Physical examination today shows a weight of 162 pounds. Heart rate is 72, blood pressure 118/64, respiratory rate of 16, and a temperature of 36.8 orally. The current pain level is 1/10. Examination of the left leg shows diffuse calf muscle tenderness without focal trigger points, edema, or skin or hair changes. Range of motion of the knee seems normal with stability of the anterior cruciate ligament. Review of her pain diary shows consistent pain scores of 1/10 and patient tolerating physical activity in the form of an exercise bicycle between six and ten minutes a day. ASSESSMENT AND PLAN: Chronic low back pain. 1. Chronic pain therapy. Ms. Evans continues on her pain cocktail that now has Clonidine 50 mcg twice per day in addition to Vistaril 8 mg twice per day. We will continue to taper the Vistaril and Clonidine at this current time. 2. Physical Therapy. Ms. Evans continues to tolerate slow increases in her therapy and continues to partake in more activities outside of the house. 3. Increase in social function. Ms. Evans maintains her increased social function and participation in her orthodox group. John Mulligan M.D. Meter/Relay Technician, Anesthesiology Director, Pain Management Services PK:bony cc: CAROLINE YOON MD COUNTER SALES PERSON [facility] documented in this encounter Plan of Treatment Not on filedocumented as of this encounter Visit Diagnoses Not on filedocumented in this encounter
--- OUTSIDE RECORDS SUMMARY | ~2019-02-03 | XMS | Encounter Summary ---
Demographics + + + | Address | [address] | | | [place] [address] | + + + | Home Phone | | + + + | Preferred Language | Unknown | + + + | Marital Status | Single | + + + | Judaism Affiliation | Unknown | + + + | Race | Unknown | + + + | Ethnic Group | Unknown | + + + Author + + + | Author | [facility] | | | and [place] | + + + | Organization | [facility] | | | and [place] [...] Team Providers + +------+ + | Care Farm Equipment Mechanic Name | Role | Phone | + +------+ + | Timothy Elmore | PCP | | + +------+ + Encounter Details +--------+ + + + + | Date | Type | Department | Care Team | Description | +--------+ + + + + | 08/18/ | Abstract | [facility] | [place], | Dental caries | | 2015 | | PHYSIATRY [address] | Yfn Sabillon CMA | (Primary Dx); | | | | [address] | | Depression; | | | | [place] | | Essential | | | | [address] | | hypertension | | | | [phone] | | | +--------+ + + + + Social History + +-------+ +--------+------+ | Tobacco Use | Types | Packs/Day | Years | Date | | | | | Used | | + +-------+ +--------+------+ | Unknown If Ever | | | | | | Smoked | | | | | + +-------+ +--------+------+ + + +---------+ + | Alcohol Use | Drinks/Week | oz/Week | Comments | + + +---------+ + | Not Asked | 0 Standard drinks | 0.0 | [...] + + + | Blood Pressure | 118/70 | 08/18/2014 2:57 PM | | | | | PDT | | + + + + + | Pulse | 98 | 08/18/2014 2:57 PM | | | | | PDT | | + + + + + | Temperature | 36.6 C (97.8 F) | 08/18/2014 2:57 PM | | | | | PDT | | + + + + + | Respiratory Rate | 18 | 08/18/2014 2:57 PM | | | | | PDT | | + + + + + | Oxygen Saturation | - | - | | + + + + + | Inhaled Oxygen | - | - | | | Concentration | | | | + + + + + | Weight | 60.8 kg (134 lb) | 08/18/2014 2:57 PM | | | | | PDT | | + + + + + | Height | - | - | | + + + + + | Body Mass Index | 21.96 | 08/09/2014 11:16 AM | | | | | PDT | | + + + + + documented in this encounter Plan of Treatment Not on filedocumented as of this encounter Visit Diagnoses + + | Diagnosis | + + | Dental caries - Primary Unspecified dental caries | + + | Depression Depressive disorder, not elsewhere classified | + + | Essential hypertension Unspecified essential hypertension | + + documented in this encounter"
--- OUTSIDE RECORDS SUMMARY | ~2019-02-03 | XMS | Encounter Summary ---
Demographics + + + | Address | [address] | | | [place] [address] | + + + | Home Phone | | + + + | Preferred Language | Unknown | + + + | Marital Status | Single | + + + | Cheondoism Affiliation | Unknown | + + + | Race | White | + + + | Ethnic Group | Not or | + + + Author + + + | Author | [facility] | + + + | Organization | [facility] | + + + | Address | Unknown | + + + | Phone | Unavailable | + + + Support + + + + + | Name | Relationship | Address | Phone | + + + + + | Zaida Putnam | ECON | [address] | | | | | [place], | | | | | [place] [address] | | + + + + + Care Team Providers + +------+ + | Care Record Tester Name | Role | Phone | + +------+ + PCP | Unavailable | + +------+ + Encounter Details +--------+ + + + + | Date | Type | Department | Care Team | Description | +--------+ + + + + | 09/20/ | Office | General Internal | Note, Outpatient | Progress Note | | 1994 | Visit-Trans | Medicine [address] | Clinic | | | | [place] | [facility] | | | | | | Mailcode: [id number] | | | | | | Outpatient Clinic | | | | | | [facility], [address] | | | | | | [place], [place] | | | | | | [address] | | | | | | [phone] | | | +--------+ + + + [...] as of this encounter Progress Notes Interface, Railroad Passenger Agent In - 06/01/2006 3:00 AM PDT CLINIC DATE: 09/20/94 PSYCHIATRY CLINIC: OBSESSIVE-COMPULSIVE DISORDER (OCD) PSYCHIATRIC CLINIC EVALUATION: IDENTIFYING INFORMATION: Ms. Evans is a 39-year-old white female who is self-referred to the OCD Clinic for evaluation of potential obsessive-compulsive disorder symptomatology. Sources of information include the patient who appears to be a reliable historian as well as the [facility] chart including a neuropsychological evaluation conducted on March 15, 1994. CHIEF COMPLAINT: "I have a thing about dirt. I can't relax until I clean." HISTORY OF PRESENT ILLNESS: Ms. Evans reports a long history of obsessive thinking around dirt and contamination associated with compulsive cleaning. This began when she was 14 years old and persists until the present time. She always thought this was a "matter of pride," but after reading a recent article on OCD in the [place], she realizes that it may be something more than pride. Ms. Evans has always been consumed with worries about dirtiness, filthiness, and contamination. These obsessions began when she was 14 years old, and she has dealt with them through ritualistic cleaning behavior. Over the last four years, however, she has noticed that she can no longer keep up with her ritualistic cleaning due to chronic medical problems which are worsening, particularly muscle problems and significant lower back pain. Due to this, she can no longer put as much "energy" into her ritualistic cleaning, leading to an increase in anxiety and distress. Ms. Evans reports that she obsesses on cleanliness for greater than 10 hours a day and realizes that it is "meaningless." She reports that people have noticed that she is obsessive about dirt. She has often been referred to as a "neat freak" and "cleanoholic." She reports that she cleans the house everyday and is often involved in this cleaning for two to three hours per day. She continues to clean until it "feels right." She wipes up the floor everyday, spending approximately one hour on this. The most meaningless part of her cleaning which seems excessive is her need to get everything including "nooks and crannies" free of dirt and grime. She reports that the obsessional thought and compulsive behavior wax and wane depending upon how much stress she is under. She has been particularly stressed over the last two months due to a recent move to a new apartment where she felt overwhelmed, leading to a depression which appears to meet the criteria for clinical depression. She also had to put a pet to sleep several months ago leading to increased emotional stress. She admits to other obsessional thinking over her lifetime including orderliness, stating, "There is a place for everything. It is just a matter of determining where." She also admits to obsessional doubt at times and periods of checking in the past, although this is not a significant problem presently. She admits to having the need to make lists to deal with her obsessional doubt. She has some counting rituals involved with her cleaning, namely, having to vacuum a portion of the carpet seven times before it is "okay." She also admits to having to paint her toenails and have them perfect all the time. She says it takes her three days to paint her toenails with autobody paint. She has to spend this much time to get her toenails "just right." Again, these symptoms are quite distressing for Ms. Evans, and they have caused her significant impairments. An example of this is that she has been unable to buy food for her new apartment until she is able to place shelf paper on the shelves since they are so dirty. Her boyfriend feels this is "ridiculous" and this leads to some conflict in their relationship. PAST PSYCHIATRIC HISTORY: Ms. Evans reports having a "breakdown" when she was 24 years old, leading to a several-day hospitalization at a private psychiatric hospital where she was treated for several days on Mellaril and then changed to doxepin. She states that this was a horribly stressful time in her life when she was abusing alcohol and had just lost the custody of her child. Four months later, she was hospitalized at [facility] for 10 days at the recommendation of her Alcoholics Anonymous sponsor. Again, she was treated briefly with Mellaril. She has had no other psychiatric care. PAST MEDICAL HISTORY: Ms. Evans reports having had strep throat and scarlet fever when she was in the fifth grade. After that time, she had recurrent strep infections until she had a tonsillectomy at 14 years of age. More recently, she has had chronic problems with "muscles, nerves, and low back pain." She is followed by Dr. Grijalva of Neurology because her "legs are failing slowly." She is also followed by Orthopedics and [facility], seeing Dr. Mulligan. In the pain clinic, she is presently receiving a "pain cocktail" which includes Clonidine 50 mg and Vistaril 8 mg b.i.d. with a plan to taper. MEDICATIONS: 1. Pain cocktail including Clonidine 50 mg and Vistaril 8 mg b.i.d. 2. Zoloft 100 mg one-half tablet q. day. She has been taking Zoloft for one month for a clinical depression and reports good response. Zoloft has not been helpful for her obsessions, however. PSYCHIATRIC REVIEW OF SYSTEMS: Ms. Evans reports an episode of depression since early July associated with decreased appetite, decreased sleep, poor motivation, suicidal ideation without plan or intent, and feelings of hopelessness and helplessness. She was started on Zoloft one month ago and reports good response with resolution of most of her symptoms. She denies problems with chronic depression but admits to other episodes of distinct depressions compatible with clinically significant ones. The last clinical depression appears to have happened in 1990. It lasted for several months and occurred after her last divorce. She denies any manic episodes. HABITS: Ms. Evans has not used alcohol or illicit drugs for the last 14 years. When she 23 to 24 years old, she did abuse alcohol, leading a "tavern life." However, she was able to stop alcohol and through the help of Alcoholics Anonymous have a successful recovery. She smokes tobacco. SOCIAL HISTORY: Presently, Ms. Evans lives with her boyfriend of five years in a home that they moved into on July 17, 1994. 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 Since that time, she has been on Social Security disability. Her boyfriend works in an auto shop that they bought several years ago. 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 She has several rats which she keeps as pets and is quite attached to them. Ms. Evans has been five times. Her first marriage was when she was 14 years old. She did not complete high school but obtained a GED. There is a complete social and developmental history included in the chart within the neuropsychological evaluation conducted on March 15, 1994. MENTAL STATUS EXAMINATION: Ms. Evans is an appropriately dressed and groomed white female who is pleasant and cooperative. She comes to the interview carrying the recent article from the [facility] on OCD. She easily engages in the interview and seems to develop rapport with the interviewer. Initially, she seems somewhat anxious and talking rather quickly, but this subsides within the first several minutes of the interview. There are no marked psychomotor abnormalities and her speech is of regular rate and volume once she begins to relax. Her affect is broad and appropriate, and her mood is euthymic. She denies suicidal ideation at the present time. She denies perceptual disturbances and no delusions are noted. Her thought processes are primarily and goal directed, although she becomes somewhat circumstantial when more anxious. She is alert and oriented in all spheres and demonstrates good concentration and attention in that she can go through the months of the year backwards without error. She registers three out of three objects and recalls them after five minutes. Her insight and judgment appear fair. PHYSICAL EXAMINATION: Weight 167 pounds, blood pressure 115/70, pulse 72 and regular. A complete physical examination was not conducted at this time since she has been followed with physical examinations in [facility]. IMPRESSION: Ms. Evans is a 39-year-old white female who appears to meet the criteria for obsessive-compulsive disorder in that she has persistent obsessions around dirtiness and associated compulsive behavior, namely, cleaning, which helps decrease the anxiety provoked by the obsessions. This obsessive-compulsive behavior takes up more than several hours of her day and causes her marked distress and some social and occupational impairments. She also appears to suffer with a recurrent major depressive disorder. Her most recent depressive episode appears to be in partial to full remission at this time after a good response to Zoloft 50 mg a day. Despite this treatment, however, her obsessive-compulsive behavior has not improved with this selective serotonin reuptake inhibitor (SSRI). Ms. Evans does not appear to have any obvious medical or neurological disorders which would explain her pathology. DSM-IV DIAGNOSES: AXIS I 1. Obsessive-compulsive disorder (provisional). 2. Major depressive disorder, recurrent, most recent episode in partial remission. 3. History of alcohol abuse, in remission times 14 years. AXIS II Deferred. AXIS III 1. Chronic low back pain. 2. Status post breast implants. 3. Partial hysterectomy in 1982. 4. Liposuction in 1983. 5. Breast lump biopsy for a nonmalignant mass in 1983. 6. Status post right arthroscopy. 7. Status post tonsillectomy. AXIS IV Moderate with recent move to new living environment. AXIS V Global assessment of functioning of 50. RECOMMENDATIONS: 1. The patient will take the E. L. Brown Obsessive-Compulsive computerized test today. She was also given the Weibach's Symptom Checklist to complete at home. 2. She is scheduled for a follow-up appointment in one week to discuss treatment options and plans. She will be encouraged to consider pharmacotherapy for her OCD and recurrent major depression as cognitive behavioral therapy for OCD. 3. She has been encouraged to read the book, Stop Obsessing, to begin learning about cognitive behavioral therapy. 4. We will obtain some baseline laboratory tests including TSH to rule out any underlying medical condition which may be exacerbating her psychopathology. 5. The case will be discussed with Dr. Payan. Cory Monroy M.D. Resident, Psychiatry Jamir Payan M.D. Cripple Chaser, Psychiatry and occurred after her last divorce. She denies any manic episodes. HABITS: Ms. Evans has not used alcohol or illicit drugs for the last 14 years. When she 23 to 24 years old, she did abuse alcohol, leading a "tavern life." However, she was able to stop alcohol and through the help of Alcoholics Anonymous have a successful recovery. She smokes tobacco. SOCIAL HISTORY: Presently, Ms. Evans lives with her boyfriend of five years in a home that they moved into on July 17, 1994. 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 Since that time, she has been on Social Security disability. Her boyfriend works in an auto shop that they bought several years ago. 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 She has several rats which she keeps as pets and is quite attached to them. Ms. Evans has been five times. Her first marriage was when she was 14 years old. She did not complete high school but obtained a GED. There is a complete social and developmental history included in the chart within the neuropsychological evaluation conducted on March 15, 1994. MENTAL STATUS EXAMINATION: Ms. Evans is an appropriately dressed and groomed white female who is pleasant and cooperative. She comes to the interview carrying the recent article from the [facility] on OCD. She easily engages in the interview and seems to develop rapport with the interviewer. Initially, she seems somewhat anxious and talking rather quickly, but this subsides within the first several minutes of the interview. There are no marked psychomotor abnormalities and her speech is of regular rate and volume once she begins to relax. Her affect is broad and appropriate, and her mood is euthymic. She denies suicidal ideation at the present time. She denies perceptual disturbances and no delusions are noted. Her thought processes are primarily goal directed, although she becomes somewhat circumstantial when more anxious. She is alert and oriented in all spheres and demonstrates good concentration and attention in that she can go through the months of the year backwards without error. She registers three out of three objects and recalls them after five minutes. Her insight and judgment appear fair. PHYSICAL EXAMINATION: Weight 167 pounds, blood pressure 115/70, pulse 72 and regular. A complete physical examination was not conducted at this time since she has been followed with physical examinations in [facility]. IMPRESSION: Ms. Evans is a 39-year-old white female who appears to meet the criteria for obsessive-compulsive disorder in that she has persistent obsessions around dirtiness and associated compulsive behavior, namely, cleaning, which helps decrease the anxiety provoked by the obsessions. This obsessive-compulsive behavior takes up more than several hours of her day and causes her marked distress and some social and occupational impairments. She also appears to suffer with a recurrent major depressive disorder. Her most recent depressive episode appears to be in partial to full remission at this time after a good response to Zoloft 50 mg a day. Despite this treatment, however, her obsessive-compulsive behavior has not improved with this selective serotonin reuptake inhibitor (SSRI). Ms. Evans does not appear to have any obvious medical or neurological disorders which would explain her pathology. DSM-IV DIAGNOSES: AXIS I 1. Obsessive-compulsive disorder (provisional). 2. Major depressive disorder, recurrent, most recent episode in partial remission. 3. History of alcohol abuse, in remission times 14 years. AXIS II Deferred. AXIS III 1. Chronic low back pain. 2. Status post breast implants. 3. Partial hysterectomy in 1982. 4. Liposuction in 1983. 5. Breast lump biopsy for a nonmalignant mass in 1983. 6. Status post right arthroscopy. 7. Status post tonsillectomy. AXIS IV Moderate with recent move to new living environment. AXIS V Global assessment of functioning of 50. RECOMMENDATIONS: 1. The patient will take the Tanesha-Brown Obsessive-Compulsive computerized test today. She was also given the Y-BOCS Checklist to complete at home. 2. She is scheduled for a follow-up appointment in one week to discuss treatment options and plans. She will be encouraged to consider pharmacotherapy for her OCD and recurrent major depression as well as cognitive behavioral therapy for OCD. 3. She has been encouraged to read the book, Stop Obsessing, to begin learning about cognitive behavioral therapy. 4. We will obtain some baseline laboratory tests including TSH to rule out any underlying medical condition which may be exacerbating her psychopathology. 5. The case will be discussed with Dr. Payan. Cory Monroy M.D. Resident, Psychiatry Jamir Payan M.D. Cripple Chaser, Psychiatry Aaron:bony WOOD:bony C: 10/04/94 shubham documented in this encounter Plan of Treatment Not on filedocumented as of this encounter Visit Diagnoses Not on filedocumented in this encounter
--- OUTSIDE RECORDS SUMMARY | ~2019-02-03 | XMS | Encounter Summary ---
Demographics + + + | Address | [address] | | | [place] [address] | + + + | Home Phone | | + + + | Preferred Language | Unknown | + + + | Marital Status | Single | + + + | Confucianism Affiliation | Unknown | + + + | Race | White | + + + | Ethnic Group | Not or | + + + Author + + + | Author | [facility] | + + + | Organization | [facility] | + + + | Address | Unknown | + + + | Phone | Unavailable | + + + Support + + + + + | Name | Relationship | Address | Phone | + + + + + | Zaida Ptunam | ECON | [address] | | | | | [place], | | | | | [place] [address] | | + + + + + Care Team Providers + +------+ + | Care Urogynaecologist Name | Role | Phone | + +------+ + PCP | Unavailable | + +------+ + Encounter Details +--------+ + + + + | Date | Type | Department | Care Team | Description | +--------+ + + + + | 03/30/ | Office | [facility] | Note, [...] as of this encounter Progress Notes Interface, Woodworking Machine Setter In - 02/14/2006 5:12 AM PSTCLINIC DATE: 03/30/1998 INTERNAL MEDICINE CLINIC SUBJECTIVE: Litzy is a patient of Dr. Hui Craven. Last week Hui began her on longacting morphine for her chronic pain problems. Hui dosed her at 15 mg twice daily but Litzy has been taking this three times daily by mistake and will run out of medication sooner than expected. She does report good pain relief and is doing quite a bit better on this medication. She also has a chronic wart on her finger that has been resistant to treatment. ASSESSMENT AND PLAN: 1. Chronic pain disorder, initially responding to morphine. We will give her an additional 30 tablets that will allow her to take three tablets a day until her scheduled follow up with on April 18, 1998. 2. Wart. I treated this with liquid nitrogen and gave Litzy a prescription for a Mediplast that she can apply to her finger every day. I encouraged her to soak and scrape the wart every day prior to replacing the plaster. 3. Social situation. Litzy is looking seriously at placing her mother in assisted living, which will be of benefit as Litzy has been quite stressed with the burden of her mother's care. Wallace Szymanski M.D. JENAE/amanda cc: Hui Craven M.D. documented in this encounter Plan of Treatment Not on filedocumented as of this encounter Visit Diagnoses Not on filedocumented in this encounter"
--- OUTSIDE RECORDS SUMMARY | ~2019-02-03 | XMS | Encounter Summary ---
Demographics + + + | Address | [address] | | | [place] [address] | + + + | Home Phone [...] Author + + + | Author | [facility] | + + + | Organization | [facility] | + + + | Address | Unknown | + + + | Phone | Unavailable | + + + Support + + + + + | Name | Relationship | Address | Phone | + + + + + | Zaida Putnam | ECON | [address] | | | | | [place], | | | | | [place] [address] | | + + + + + Care Team Providers + +------+ + | Care Oil Producer Name | Role | Phone | + +------+ + PCP | Unavailable | + +------+ + Encounter Details +--------+ + + + + | Date | Type | Department | Care Team | Description | +--------+ + + + + | 12/25/ | Office | UNKNOWN DEPARTMENT | Note, Outpatient | Progress Note | | 1993 | Visit-Trans | [address] | Clinic | | | | [place] | [address] | | | | | | [place], [place] | | | | | | [address] | | | +--------+ + + + [...] as of this encounter Progress Notes Interface, Strand And Binder Controller In - 06/14/2006 5:08 AM PDT CLINIC [...] drink alcohol. 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 She is , currently living with a boyfriend/roommate in [place]. She is subsisting on Welfare, she has [...] management of somatization disorder. Faisal Grijalva M.D. Steam Pan Sponger, Neurology PIYUSH/ifrah cc: LEILANI ACOSTA MD [address] [place] [phone] documented in this encounter Plan of Treatment Not on filedocumented as of this encounter Visit Diagnoses Not on filedocumented in this encounter
--- OUTSIDE RECORDS SUMMARY | ~2019-02-03 | XMS | Encounter Summary ---
Demographics + + + | Address | [address] | | | [place] [address] | + + + | Home Phone | | + + + | Preferred Language | Unknown | + + + | Marital Status | Single | + + + | Advent Affiliation | Unknown | + + + [...] [place], | | | | | [place] [address] | | + + + + + Care Team Providers + +------+ + | Care Dialysis Biomed Technician Name | Role | Phone | + +------+ + PCP | Unavailable | + +------+ + Encounter Details +--------+ + + + + | Date | Type | Department | Care Team | Description | +--------+ + + + + | 03/21/ | Office | [facility] | Note, [...] as of this encounter Progress Notes Interface, Garment Parts Cutter Hand In - 02/14/2006 5:12 AM PSTINIC DATE: 03/21/1998 INTERNAL MEDICINE CLINIC SUBJECTIVE: Ms. Evans comes in today for follow up of her chronic pain. She has been in a flare for the last two weeks, since her mother became ill after having a fall precipitating a fractured humerus. 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 She presents complaining of pain in her right shoulder and bilateral hips. She denies any low back pain. She denies any numbness, tingling, or weakness in the lower extremities. She is compliant with Zoloft and Trazodone, and reports that her mood is good. Her sleep is intact as well. PHYSICAL EXAM: Blood pressure of 110/70. Pulse of 92. Weight is 108 pounds. In general, the patient appears manic, is hyperverbal, and difficult to direct. Right shoulder shows no atrophy. Full range of motion to internal and external rotation, abduction and adduction. No crepitus and no pain elicited on palpation of the clavicle or acromial clavicular joint. Some tenderness of the soft tissues on palpation. Extremities with a small wart noted on the 1st right finger. ASSESSMENT AND PLAN: 1. Chronic pain due to fibromyalgia. At present, Ms. Evans' pain appears to be flaring. She has reported response to Vicodin ES, which at this point I am not willing to refill for her. We discussed her medical management. She agreed to take MS Contin 15 mg p.o. b.i.d., which I prescribed 30 days worth for her. In addition, I feel that she is to increase her Zoloft from 100 to 150 mg a day to help not only with her pain, but with her behavior as well. Initially, she seemed to have responded to the Zoloft with regards to her excitability and manic nature, but at this time I feel that the effect has been lost. 2. Wart. Treated by myself with paring and Liquid Nitrogen. 3. Ms. Evans' physical exam and treatment plan were thoroughly reviewed with Dr. Wallace Szymanski. Hui Milton M.D. [facility] Wallace Szymanski M.D. [facility] MS/hhk d ocumented in this encounter Plan of Treatment Not on filedocumented as of this encounter Visit Diagnoses Not on filedocumented in this encounter"
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
--- OUTSIDE RECORDS SUMMARY | ~2019-02-03 | XMS | Encounter Summary ---
Demographics + + + | Address | [address] | | | [place] [address] | + + + | Home Phone | | + + + | Preferred Language | Unknown | + + + | Marital Status | Single | + + + | Druze Affiliation | Unknown | + + + | Race | White | + + + | Ethnic Group | Not or | + + + Author + + + | Author | [facility] | + + + | Organization | [facility] | + + + | Address | Unknown | + + + | Phone | Unavailable | + + + Support + + + + + | Name | Relationship | Address | Phone | + + + + + | Zaida Putnam | ECON | [address] | | | | | [place], | | | | | [place] [address] | | + + + + + Care Team Providers + +------+ + | Care Shrimp Header Name | Role | Phone | + [...] [id number] | | | | | | [place], [place] | | | | | | [address] | | | | | | [phone] | | | +--------+ + + + [...] OF | [address] | [place] [address] | | | PATHOLOGY | YOKASTA BUTCHER | | | + + + + + documented in this encounter Visit Diagnoses Not on filedocumented in this encounter"
--- OUTSIDE RECORDS SUMMARY | ~2019-02-03 | XMS | Encounter Summary ---
Demographics + + + | Address | [address] | | | [place] [address] | + + + | Home Phone | | + + + | Preferred Language | Unknown | + + + | Marital Status | Single | + + + | Restorationist Affiliation | Unknown | + + + [...] [place], | | | | | [place] [address] | | + + + + + Care Team Providers + +------+ + | Care Rn Lvn Name | Role | Phone | + [...] Clinic | | | | | | [facility], [address] | | | | | | [place], [place] | | | | | | [address] | | | | | | [phone] | | | +--------+ + + + [...] as of this encounter Progress Notes Interface, Log Scaler In - 06/01/2006 3:00 AM PDT CLINIC [...] actively in her social programs including attending scientology and bible-study sessions. CURRENT MEDICATIONS: Current medications [...] a very low level with her boyfriend's [employer] business. 3. Increasing social function. This seems to be quite stable and she now is able to understand the effect that anger has on her pain. Ms. Evans will no longer be able to be seen the Pain Management Clinic at [facility] because of a change in insurance coverage. She will be cared for at [facility]. She has requested that her Pain Management Clinic progress notes as well as her Orthopedic progress notes from [facility] be sent to that institution. Ms. Evans has done well after arriving receiving a relatively high dose of oral opioids, Vicodin approximately eight per day. She has been titrated off opioids, and her pain level has decreased from a score of 7-8/10 to currently 0-1/10. I believe that her prognosis is quite good in terms of her chronic pain. John Mulligan M.D. Awning Finisher, Anesthesiology Director, Pain Management Services PK:bony cc: CAROLINE YOON MD VEGETABLE GRADER ORTHOPEDICS [facility] documented in this encounter Plan of Treatment Not on filedocumented as of this encounter Visit Diagnoses Not on filedocumented in this encounter"
--- OUTSIDE RECORDS SUMMARY | ~2019-02-03 | XMS | Encounter Summary ---
Demographics + + + | Address | [address] | | | [place] [address] | + + + | Home Phone [...] [place], | | | | | [place] [address] | | + + + + + Care Team Providers + +------+ + | Care Scientific Informatics Analyst Name | Role | Phone | + +------+ + PCP | Unavailable | + +------+ + Encounter Details +--------+ + + + + | Date | Type | Department | Care Team | Description | +--------+ + + + + | 06/26/ | Office | General Internal | Note, Outpatient | Progress Note | | 1994 | Visit-Trans | Medicine [address] | Clinic | | | | [place] | [facility] | | | | | | Mailcode: [id number] | | | | | | Outpatient Clinic | | | | | | [facility], [address] | | | | | | [place], [place] | | | | | | [address] | | | | | | [phone] | | | +--------+ + + + [...] as of this encounter Progress Notes Interface, Glove Tagger In - 06/06/2006 5:07 AM PDT CLINIC DATE: 06/26/94 PAIN MANAGEMENT CLINIC REFERRING PHYSICIAN: Renzo Lopez M.D. INTERVAL HISTORY: Mrs. Evans underwent surgery for her urinary incontinence on 06/05/94. She had some increase in perioperative pain which required a course of Vicodin and Lortab prescribed by her urologist. The totals of these prescriptions were 70 tablets. I talked to Mrs. Evans three times on the phone shortly after the surgery about her consumption of these opioids and, at the end of May, she stopped taking additional opioids because she no longer had a supply. Since that time, her pain has returned to 1/10 and her level of functioning has improved dramatically to include normal activities around the house. In addition, she remains active in her local mu-ism and is in the process of moving to a house that she is working on and renovating. Mrs. Evans notes some Achilles heel pain bilaterally that she rates as 2/10 in intensity which is worse in the morning and relieved somewhat with relaxation. She has no bladder or bowel complaints and notes that the surgery for her incontinence has worked well. She has visited the hospital for an overnight hospitalization and surgery and visited her urologist three times postoperatively. She has not visited any other physicians since our last clinic appointment. CURRENT MEDICATIONS: Pain cocktail containing Methadone 0.75 mg and Vistaril 10 mg taken twice per day. ALLERGIES: No known drug allergies. PHYSICAL EXAMINATION: VITAL SIGNS: Blood pressure 111/64, heart rate 76, respiratory rate 16. GENERAL: Well-developed, well-nourished, mildly obese, white female with full faces in no apparent distress. BACK: Focus exam of her lower back shows good range of motion to flexion and rotation to 40 degrees bilaterally, limited by stiffness and not pain. Straight leg and cross-leg raising are negative. Deep tendon reflexes are 2+ bilaterally in lower extremities for quadriceps and gastrocnemius. There are no masses in the Achilles tendons and flexion at the ankle is limited to 70 degrees. ASSESSMENT AND PLAN: 1. Chronic low back pain. 1.1 Chronic pain therapy. Will continue to decrease the therapy. Her next prescription contains 0.375 mg of Methadone taken twice per day. 1.2 Physical therapy. Will continue to encourage her to increase physical therapy and Mrs. Evans feels she will start doing that over the next couple of weeks. 1.3 Increase social function. It is very encouraging that she continues to have a high level of social function and hopefully this will become a new way of life for her. 2. Bladder dysfunction, resolved. John Mulligan M.D. Buffer Nickel, Anesthesiology Director, Pain Management Services HUI /efren A documented in this encounter Plan of Treatment Not on filedocumented as of this encounter Visit Diagnoses Not on filedocumented in this encounter"
--- OUTSIDE RECORDS SUMMARY | ~2019-02-03 | XMS | Encounter Summary ---
Demographics + + + | Address | [address] | | | [place] [address] | + + + | Home Phone | | + + + | Preferred Language | Unknown | + + + | Marital Status | Single | + + + | Tenriism Affiliation | Unknown | + + + | Race | Unknown | + + + | Ethnic Group | Unknown | + + + Author + + + | Author | [facility] | | | and [place] | + + + | Organization | [facility] | | | and [...] Team Providers + +------+ + | Care Felt Cutter Name | Role | Phone | + +------+ + | Timothy Elmore | PCP | | + +------+ + Reason for Visit + + + | Reason | Comments | + + + | Sore Throat | | + + + Encounter Details +--------+ + + + + | Date | Type | Department | Care Team | Description | +--------+ + + + + | // | Emergency | [facility] | [facility], | [facility] (Primary Dx) | | 2016 | | [facility] | Hang Koch MD | | | | | EMERGENCY [address] | [address] | | | | | [address] [place] | [address] | | | | | [address] | [place] [address] | | | | | [phone] | [phone] | | | | | | | [...] + + + | Blood Pressure | 158/74 | 07/23/2015 2:31 AM | | | | | PDT | | + + + + + | Pulse | 84 | 07/23/2015 2:31 AM | | | | | PDT | | + + + + + | Temperature | 36.6 C (97.9 F) | 07/23/2015 2:31 AM | | | | | PDT | | + + + + + | Respiratory Rate | 17 | 07/23/2015 2:31 AM | | | | | PDT | | + + + + + | Oxygen Saturation | 98% | 07/23/2015 2:31 AM | | | | | PDT | | + + + + + | Inhaled Oxygen | - | - | | | Concentration | | | | + + + + + | Weight | 69.4 kg (153 lb) | 07/23/2015 2:31 AM | | | | | PDT | | + + + + + | Height | 165.1 cm (5' 5") | 07/23/2015 2:31 AM | | | | | PDT | | + + + + + | Body Mass Index | 25.46 | 07/23/2015 2:31 AM | | | | | PDT [...] + documented as of this encounter Discharge Instructions AttachmentsThe following attachments cannot be sent through Care Everywhere.THRUSH, ORAL (Y EAST INFECTION) (PARAGUAYAN)documented in this encounter Medications at Time of [...] + +---------+ + + | acyclovir | as needed. | | 0 | | | | (ZOVIRAX) 200 mg | | | | | 7 | | capsule | | | | | | + + + +---------+ + + | busPIRone (BUSPAR) | NOT TAKING | | 0 | | | | 30 MG tablet | | | | | 7 | + + + +---------+ + + | CALCIUM PO | Take by mouth. | | 0 | | | | | | | | | 7 | + + + +---------+ + + | carisoprodol | DUPLICATE | | 0 | | | | (SOMA) 350 mg tablet | | | | | 7 | + + + +---------+ + + | carisoprodol | Take 350 mg by mouth | | 0 | | | | (SOMA) 350 mg tablet | 2 times daily. | | | | 7 | + + + +---------+ + + | estradiol | Place vaginally. | | 0 | | | | (ESTRACE) 0.1 mg/g | | | | | 7 | | vaginal cream | | | | | | + + + +---------+ + + | estradiol | Take 0.5 mg by | | 0 | | | | (ESTRACE) 0.5 mg | mouth. 1 every 8 | | | | 7 | | tablet | days | | | | | + + + +---------+ + + | Hyoscyamine | Take by mouth as | | 0 | | | | Sulfate (HYOSCYAMINE | needed. | | | | 7 | | PO) | | | | | | + + + +---------+ + + | lidocaine | Take 15 mLs by mouth | 100 mL | 0 | 07/23/19 | | | (XYLOCAINE) 2% | as needed for Pain. | | | 16 | 7 | | solution | No more than 60ml | | | | | | | in 24hours. | | | | | + + + +---------+ + + | lisinopril | Take 20 mg by mouth | | 0 | 07/23/19 | | | (PRINIVIL, ZESTRIL) | Daily. | | | 17 | 7 | | 20 mg tablet | | | | | | + + + +---------+ + + | NIFEdipine | Take 30 mg by mouth | | 0 | 07/04/19 | | | (NIFEDICAL XL) 30 mg | Daily. | | | 17 | 7 | | ER tablet | | | | | | + + + +---------+ + + | nystatin | Swish and swallow 5 | 240 mL | 0 | 07/23/19 | | | (MYCOSTATIN) 100,000 | ml four times daily | | | 16 | 7 | | units/mL | up to 48 hours after | | | | | | suspensionIndication | symptoms resolve | | | | | | s: Oropharyngeal | Indications: | | | | | | Candidiasis | Candidiasis Fungal | | | | | | | Infection of the | | | | | | | Oropharynx | | | | | + + + +---------+ + + | pseudoePHEDrine | Take 120 mg by mouth | | 0 | 08/03/19 | | | (SUDAFED) 120 mg 12 | every 12 hours. | | | 17 | 7 | | hr tablet | | | | | | + + + +---------+ + + | sertraline | NOT TAKING | | 0 | | | | (ZOLOFT) 100 mg | | | | | 7 | | tablet | | | | | | + + + +---------+ + + | TRAZODONE HCL PO | NOT TAKING | | 0 | | | | | | | | | 7 | + + + +---------+ + + documented as of this encounter Plan of Treatment + +------+--------+ + + | Name | Type | Priori | Associated Diagnoses | Date/Time | | | | ty | | | + +------+--------+ + + | ED INFORMATION | SPRING | Routin | | 07/22/2015 11:47 PM | | EXCHANGE | | e | | PDT | + +------+--------+ + + documented as of this encounter Procedures + +--------+ + + + | Procedure Name | Priori | Date/Time | Associated Diagnosis | Comments | | | ty | | | | + +--------+ + + + | ED INFORMATION | Routin | 07/22/2015 | | | | EXCHANGE | e | 11:47 PM | | | | | | PDT | | | + +--------+ + + + documented in this encounter Visit Diagnoses + + | Diagnosis | + + | Thrush - Primary Candidiasis of mouth | + + documented in this encounter Administered Medications + +--------+ +--------+------+------+ | Medication Order | MAR | Action | Dose | Rate | Site | | | Action | Date | | | | + +--------+ +--------+------+------+ | lidocaine (XYLOCAINE) 2% | Given | 07/23/19 | 15 mLs | | | | viscous solution 15 mL 15 mL, | | 16 4:01 | | | | | Mouth/Throat, ONCE, 07/23/15 at | | AM PDT | | | | | 0350, For 1 dose, Patient should | | | | | | | not swallow more than 60 mL in | | | | | | | any 24 hour period., | | | | | | + +--------+ +--------+------+------+ +---+---+ | | | +---+---+ + +-------+ + +---+---+ | nystatin (MYCOSTATIN) 100,000 | Given | 07/23/19 | 500,000 | | | | units/mL suspension 500,000 Units | | 16 4:00 | Units | | | | 500,000 Units, Swish & Swallow, | | AM PDT | | | | | ONCE, 07/23/15 at 0350, For 1 | | | | | | | dose, Shake well., Indications: | | | | | | | Oropharyngeal Candidiasis | | | | | | + +-------+ + +---+---+ +---+---+ | | | +---+---+ documented in this encounter
--- OUTSIDE RECORDS SUMMARY | ~2019-02-03 | XMS | Encounter Summary ---
Demographics + + + | Address | [address] | | | [place] [address] | + + + | Home Phone [...] [place], | | | | | [place] [address] | | + + + + + Care Team Providers + +------+ + | Care Blankbook Stitching Machine Operator Name | Role | Phone | + +------+ + PCP | Unavailable | + +------+ + Encounter Details +--------+ + + + + | Date | Type | Department | Care Team | Description | +--------+ + + + + | 01/01/ | Office | UNKNOWN DEPARTMENT | Note, Outpatient | Progress Note | | 1993 | Visit-Trans | [address] | Clinic | | | | [place] | [address] | | | | | | [place], [place] | | | | | | [address] | | | +--------+ + + + [...] as of this encounter Progress Notes Interface, Strategic Account Manager In - 06/14/2006 5:08 AM PDT CLINIC DATE: 01/01/94 NEUROLOGY CLINIC: The patient returns for follow-up of her lower extremity pain and numbness. The electromyography has been completed. 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 The paraspinals could not be adequately examined due to patient discomfort. The basis for calling the study abnormal was distal slowing of the peroneal nerve below the fibular head bilaterally. The F waves, however, were normal. No denervation was noted. The sural sensory studies were also normal. In the meantime, the patient continues to be uncomfortable, taking four Vicodin per day and six Baclofen per day as prescribed by the Pain Management Clinic. PHYSICAL EXAMINATION: The patient is able to walk on her heels and toes. She has full strength in dorsiflexion and plantar flexion of the toes and no extensor digitorum brevis atrophy can be appreciated. Her reflexes are intact including her ankle jerks. RADIOLOGY: The patient has brought in some lumbosacral spine x-rays from 1992. There is no evidence of significant degenerative joint disease and there is no evidence of disk space narrowing at any level. There is no evidence of any spondylolisthesis. IMPRESSION: Chronic pain syndrome, presumably secondary to somatization. I suspect the finding of some distal conduction velocity slowing is incidental. It certainly would not explain the patient's sensory complaints or reports of pain. In addition, there is no clinical correlate in terms of distal motor function because the distal musculature is intact as are the distal reflexes. Nevertheless, we will screen for the reversible causes of motor neuropathy. The sole remaining neurologic diagnosis which could explain the patient's migratory sensory loss and pain would be multiple sclerosis, although I think this is unlikely. A brain magnetic resonance would further serve to exclude this possibility and help steer her towards psychologic intervention which I think will be helpful to her. PLAN: 1. Complete blood count, chemistry panel, erythrocyte sedimentation rate, serum protein electrophoresis, B12, folate, and thyroid function tests. 2. Brain magnetic resonance imaging; rule out multiple sclerosis. 3. Return to clinic after the above studies. Faisal Grijalva M.D. Gasoline Dragline Operator, Neurology JQ:bony cc: DICK ACOSTA MD [address] [address] documented in this encounter Plan of Treatment Not on filedocumented as of this encounter Visit Diagnoses Not on filedocumented in this encounter"
--- OUTSIDE RECORDS SUMMARY | ~2019-02-03 | XMS | Encounter Summary ---
Demographics + + + | Address | [address] | | | [place] [address] | + + + | Home Phone [...] [place], | | | | | [place] [address] | | + + + + + Care Team Providers + +------+ + | Care Inkjet Operator Name | Role | Phone | + +------+ + PCP | Unavailable | + +------+ + Encounter Details +--------+ + + + + | Date | Type | Department | Care Team | Description | +--------+ + + + + | 07/24/ | Office | General Internal | Note, Outpatient | Progress Note | | 1994 | Visit-Trans | Medicine [address] | Clinic | | | | [place] | [facility] | | | | | | Mailcode: L475 | | | | | | Outpatient Clinic | | | | | | [facility], [address] | | | | | | [place], [place] | | | | | | [address] | | | | | | [phone] | | | +--------+ + + + [...] as of this encounter Progress Notes Interface, Neurology Physician Assistant In - 06/05/2006 1:00 AM PDT CLINIC [...] remained quite high including continued attendance of methodist and working on ajiwtw-hyc-ymuoh activities. She denies changes in bladder or [...] 2. Bladder dysfunction, resolved. John Mulligan M.D. Ed Tech, Anesthesiology Director, Pain Management Services PK:boyn documented in this encounter Plan of Treatment Not on filedocumented as of this encounter Visit Diagnoses Not on filedocumented in this encounter"
--- OUTSIDE RECORDS SUMMARY | ~2019-02-03 | XMS | Clinical Summary ---
Demographics + + + | Address | [address] | | | [place] [address] | + + + | Home Phone [...] [place], | | | | | [place] [address] | | + + + + + Care Team Providers + +------+ + | Care Manager Furniture Name | Role | Phone | + +------+ + PCP | Unavailable | + +------+ + Source Comments MARY is fully live on both [facility] Ambulatory and [facility] InPatient.[facility] Allergies Not on File Medications Not [...]
--- OUTSIDE RECORDS SUMMARY | ~2019-02-03 | XMS | Encounter Summary ---
Demographics + + + | Address | [address] | | | [place] [address] | + + + | Home Phone | | + + + | Preferred Language | Unknown | + + + | Marital Status | Single | + + + | Latter-Day Affiliation | Unknown | + + + | Race | Unknown | + + + | Ethnic Group | Unknown | + + + Author + + + | Author | [facility] | | | and [place] | + + + | Organization | [facility] | | | and [...] Team Providers + +------+ + | Care Test Man Name | Role | Phone | + +------+ + | Timothy Elmore | PCP | | + +------+ + Encounter Details +--------+ + + + + | Date | Type | Department | Care Team | Description | +--------+ + + + + | 08/04/ | [facility] | [facility] | Neo Pichardo MD | Hypertensive | | 2017 - | Encounter | [facility] | [address] | emergency; Essential | | | | [address] | [place] | hypertension | | 08/07/ | | [place] [address] | [address] | | | 2016 | | [phone] | | | +--------+ + + + [...] were performed which did not suggest ac [place] coronary syndrome. Echocardiogram was performed which showed [...] Specialty: Family Medicine Contact information: [address] [place] [id number] Discharge Medications New Medications Details acetaminophen 325 [...] signed by: Neo Pichardo MD, 08/07/2016 12:33 [facility] documented in this enc ounter Discharge Instructions [...] Mendoza MD - 08/06/2016 8:35 AM PDT [facility] Patient: Oneal Evans : 1955: Age: 60 y.o. MedRec: [id number] PCP: ASHANTI Esteves Admission date: 08/04/2016 Hospital [...] as outlined above. Neo Pichardo 08/06/2016 8:35 [facility] Mirna Kearns, PharmD - 08/05/2016 4:11 PM [...] Prior to Admission Sig: Patient taking differently FAMILY COURT COUNSELLOR as: Fluoxetine 40 mg Take 2 capsules by mouth daily Take 1 capsule by mouth 2 times daily Medication review performed and electronically signed by Jose Starr, Dump Truck Driver [address] Reviewed by Mirna Lyn, PharmD 08/05/2016 16:07 Neo Mendoza MD - 08/05/2016 9:28 AM PDT [facility] Patient: Oneal Evans : 1955: Age: 60 y.o. MedRec: [id number] PCP: ASHANTI Esteves Admission date: 08/04/2016 Hospital [...] This is a preliminary report provided by Huoshi, CARLIE. A kevin brown report is available at [facility]. CT ABDOMEN AND PELVIS WITH CO NTRAST [...] Daily Neo Pichardo MD 20 mg at 08/05/16 0809 metoclopramide [...] as outlined above. Neo Pichardo 08/05/2016 9:29 [facility] documented in this enc ounter Plan of [...] + | [facility] | [address] | [place] | [phone] | | [facility] | | [address] | | | - LABORATORY | | [...] | mL/min/1.73m2 | [facility] | | | [facility] [place] | RATE,ESTIMATED | | MEDICAL | | | | mL/min/1.05a9Fcob than | | CENTER - | | [...] [address] | [place] | [phone] | | [facility] | | [address] | | | - LABORATORY | | [...] [address] | [place] | [phone] | | [facility] | | [address] | | | - LABORATORY | | [...] | [facility] | [address] | [place] | [phone] | | [facility] | | [address] | | | - LABORATORY | | [...] [address] | [place] | [phone] | | [facility] | | [address] | | | - LABORATORY | | [...] 0.46 (L) | 0.60 - 1.30 | [facility] | | | | | mg/dL | [facility] [address] | | | | | | MEDICAL | | | | | | CENTER - | | | | | | LABORATORY | | + + + + + + | eGFR if not | >60Comment: GLOMERULAR | >=60 | [facility] | | | | FILTRATION | mL/min/1.73m2 | [address] | | | [place] | RATE,ESTIMATED | | MEDICAL | | | | mL/min/1.08g7Hfec than | | CENTER - | | [...] + | [facility] | [address] | [place] | [phone] | | [facility] | | [address] | | | - LABORATORY | | [...] [address] | [place] | [phone] | | [facility] | | [address] | | | - LABORATORY | | [...] | | | FILTRATION | mL/min/1.73m2 | [facility] | | | [place] | RATE,ESTIMATED | | MEDICAL | | | | mL/min/1.07q6Kswx than | | CENTER - | | [...] | | | | | mg/dL | [facility] | | | | | | MEDICAL [...] [address] | [place] | [phone] | | [facility] | | [address] | | | - LABORATORY | | [...] [address] | [place] | [phone] | | [facility] | | [address] | | | - LABORATORY | | [...] 458 | | | [place] Patient Number [id number] Date of Study | | | 08/05/2016 Visit Number [id number] Accession | | | [id number] Referring Physician JAZLYN MORILLO Number | | | Date of 1955 Classifier | | | GAVIN JENNINGS [facility] Age 60 year(s) | | | Interpreting ERICK DUKE | | | Street Openings Inspector [place]ANI | | | MD ERICK Gender Female Nurse | | | Stress Housekeeper Home Procedure Type | | | of Study [...] Volume: 55.37 ml | | | EF Htipgjcny82% Left | | | Ventricle Diastolic Dimension: [...] Volume: 55.37 ml | | | EF Deceqkvin08% | | | | | | Left [...] Number 458 | | [place] Patient Number [id number] Date of Study 08/05/2016 Visit Number | | [id number] Referring Physician JAZLYN MORILLO Number | | Date of 1955 Classifier GAVIN JENNINGS [facility] Age | | 60 year(s) Interpreting ERICK DUKE | | Street Openings Inspector LEILANI SUAREZ MD Gender Female Nurse | [...] [place] Volume: 55.37 ml EF | | Graynzqsw67% Left Ventricle Diastolic Dimension: 5.52 cm Systolic [...] [place] Volume: 55.37 ml | | EF Yhwgorhcg99% | | | | Left Ventricle | [...] [address] | [place] | [phone] | | [facility] | | [address] | | | - LABORATORY | | [...] | | | Count | | | [address] | | [...] [address] | [place] | [phone] | | [facility] | | [address] | | | - LABORATORY | | [...] [address] | [place] | [phone] | | [facility] | | [address] | | | - LABORATORY | | [...] + | [facility] | [address] | [place] | [phone] | | [facility] | | [address] | | | - LABORATORY | | [...] | | | | | | [employer] | | | | | [...] + + | Performing | Address | City[facility] | Phone Number | | Organization | | | | + + + + + | [facility] | [address] | [place] | [phone] | | [facility] | | [address] | | | - LABORATORY | | [...] mL/min/1.73m2 | [address] | | | [place] | RATE,ESTIMATED | | MEDICAL | | | | mL/min/1.87m2Kjmb than | | CENTER - | | [...] [address] | [place] | [phone] | | [facility] | | [address] | | | - LABORATORY | | [...] [address] | [place] | [phone] | | [facility] | | [address] | | | - LABORATORY | | [...] | | | | | | [employer] | | | | | [...] + | [facility] | [address] | [place] | [phone] | | [facility] | | [address] | | | - LABORATORY | | [...] by | | | | | | JAMIME ALONSO MD ([id number]) | | | | | | on [...] | | | Dictated and Signed by: aHng [place] MD | | Electronically signed: 08/05/2016 [...] + | [facility] | [address] | [place] | [phone] | | [facility] | | [address] | | | - LABORATORY | | [...] by | | | | | | AJMMIE ALONSO MD ([id number]) | | | | | | on [...] [address] | [place] | [phone] | | [facility] | | [address] | | | - LABORATORY | | [...] [address] | [place] | [phone] | | [facility] | | [address] | | | - LABORATORY | | [...] | | | | | | [employer] | | | | | [...] + | [facility] | [address] | [place] | [phone] | | [facility] | | [address] | | | - LABORATORY | | [...] [address] | [place] | [phone] | | [facility] | | [address] | | | - LABORATORY | | [...] + | [facility] | [address] | [place] | [phone] | | [facility] | | [address] | | | - LABORATORY | | [...] + | [facility] | [address] | [place] | [phone] | | [facility] | | [address] | | | - LABORATORY | | [...] | mL/min/1.73m2 | [facility] | | | [place] | RATE,ESTIMATED | | MEDICAL | | | | mL/min/1.64l2Cunu than | | CENTER - | | [...] [address] | [place] | [phone] | | [facility] | | [address] | | | - LABORATORY | | [...] [address] | [place] | [phone] | | [facility] | | [address] | | | - LABORATORY | | [...] | | | | | | | Adams 08/05/16 at 1130, Initial | | | [...] | | | over 4 Hours, ONCE, Adams 08/05/16 | | | | | | [...]
--- OUTSIDE RECORDS SUMMARY | ~2019-02-03 | XMS | Encounter Summary ---
Demographics + + + | Address | [address] | | | [place] [address] | + + + | Home Phone | | + + + | Preferred Language | Unknown | + + + | Marital Status | Single | + + + | Hinduism Affiliation | Unknown | + + + | Race | Unknown | + + + | Ethnic Group | Unknown | + + + Author + + + | Author | [facility] | | | and [place] | + + + | Organization | [facility] | | | and [place] [...] Team Providers + +------+ + | Care Stone Processing Machine Operator Name | Role | Phone [...] n | neuritis or | [place] | [address] | | | | | | [address] | [place], | | | | | radiculitis, | [place], | [place] | | | | | unspecified | [place] | Phone: | | | | | [facility] | [address] | [phone] | | | | | | Phone: | Fax: | | | | | | [phone] | [phone] | +--------+--------+ + + + + Encounter Details +--------+ + + + + | Date | Type | Department | Care Team | Description | +--------+ + + + + | 02/24/ | Procedure | [facility] | [place], | 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 Ankle Clonus: absent. [address] [address] Patient: Litzy Evans Date of : 1955 Sex: Female Age: 59 Years 4 Months Height: 5 feet 5 inch Sensory NCS Nerve / Sites Rec. Site Onset Lat Peak Lat WAITER/WAITRESS THIRD CLASS Amp PP Amp Segments Distance Velocity ms [...]
--- OUTSIDE RECORDS SUMMARY | ~2019-02-03 | XMS | Encounter Summary ---
Demographics + + + | Address | [address] | | | [place] [address] | + + + | Home Phone [...] | Author | [facility] | | | and [place] | + + + | Organization | [facility] | | | and [place] [...] Team Providers + +------+ + | Care Milk Drier Name | Role | Phone | + [...] [address] | | | | | [facility] [address] | [place] [address] | | | | | [address] [place] | [phone] | | | | | [address] | | | | | | [phone] | | | +--------+ + + + [...] | CORE | | | | [place] [address] | | LABORATORY | | | | [...] + + | [facility] [place] | [address] | [place] [address] | [phone] | | C[facility] LAB[facility]ATORY (I) | | [...] (I) | | | | [place] [address] | | | | + + + + + + + + | Specimen | + + | Blood specimen | | (specimen) | + + + + + + + | Performing | Address | City/State/Zipcode | Phone Number | | Organization | | | | + + + + + | [facility] [place] | [address] | [place] [address] | [phone] | | [facility] (I) | | [...] + + | [facility] [place] | [address] | [place] [address] | [phone] | | [facility] (I) | | | | + + + + + documented in this encounter Visit Diagnoses + + | Diagnosis | + + | 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
--- OUTSIDE RECORDS SUMMARY | ~2019-02-03 | XMS | Encounter Summary ---
Demographics + + + | Address | [address] | | | [place] [address] | + + + | Home Phone [...] [place], | | | | | [place] [address] | | + + + + + Care Team Providers + +------+ + | Care Conductor/Brakeman Name | Role | Phone | + [...] Clinic | | | | | | [facility], [address] | | | | | | [place], [place] | | | | | | [address] | | | | | | [phone] | | | +--------+ + + + [...] as of this encounter Progress Notes Interface, Engine Boss In - 06/01/2006 3:00 AM PDT CLINIC [...] actively in her social programs including attending yazidism and bible-study sessions. CURRENT MEDICATIONS: Current medications [...] a very low level with her boyfriend's [employer] business. 3. Increasing social function. This seems to be quite stable and she now is able to understand the effect that anger has on her pain. Ms. Evans will no longer be able to be seen the Pain Management Clinic at [facility] because of a change in insurance coverage. She will be cared for at [facility]. She has requested that her Pain Management Clinic progress notes as well as her Orthopedic progress notes from [facility] be sent to that institution. Ms. Evans has done well after arriving receiving a relatively high dose of oral opioids, Vicodin approximately eight per day. She has been titrated off opioids, and her pain level has decreased from a score of 7-8/10 to currently 0-1/10. I believe that her prognosis is quite good in terms of her chronic pain. John Mulligan M.D. Woodyard Operator, Anesthesiology Director, Pain Management Services PK:bony cc: CAROLINE YOON MD AIR DEFENSE ARTILLERY OFFICER ORTHOPEDICS [facility] documented in this encounter Plan of Treatment Not on filedocumented as of this encounter Visit Diagnoses Not on filedocumented in this encounter"
--- OUTSIDE RECORDS SUMMARY | ~2019-02-03 | XMS | Encounter Summary ---
Demographics + + + | Address | [address] | | | [place] [address] | + + + | Home Phone | | + + + | Preferred Language | Unknown | + + + | Marital Status | Single | + + + | Adventism Affiliation | Unknown | + + + | Race | Unknown | + + + | Ethnic Group | Unknown | + + + Author + + + | Author | [facility] | | | and [place] | + + + | Organization | [facility] | | [...] Team Providers + +------+ + | Care Property Management Supervisor Name | Role | Phone | [...] | [address] | [address] | pulmonary disease, | | | | [place] | [place] | unspecified COPD | | | | [address] | [address] | type (HCC) (Primary | | | | [phone] | [phone] | Dx) | +--------+ + + + [...]
--- OUTSIDE RECORDS SUMMARY | ~2019-02-03 | XMS | Encounter Summary ---
Demographics + + + | Address | [address] | | | [place] [address] | + + + | Home Phone [...] + + + | Author | [facility] | + + + | Organization | [facility] | + + + | Address | Unknown | + + + | Phone | Unavailable | + + + Support + + + + + | Name | Relationship | Address | Phone | + + + + + | Zaida Putnam | ECON | [address] | | | | | [place], | | | | | [place] [address] | | + + + + + Care Team Providers + +------+ + | Care Acid Condenser Name | Role | Phone | + [...] [address] | | | | | | [place] | | | | | | [address] | | | +--------+ + + + [...] as of this encounter Progress Notes Interface, Associate Professor Of Mathematics In - 06/14/2006 5:08 AM PDT [address] [address] [facility] December 25, 1993 LEILANI ACOSTA MD [address] [place] [address] RE:Litzy Evans MR#:[id number] Acosta: Thank you for referring Litzy Evans to the [facility] for evaluation. I found her [...] your kind referral. Sincerely, Faisal Grijalva M.D. Rolled Seat Trimmer, Neurology JFQ/mrd December 26, 1993 documented in this encounter Plan of Treatment Not on filedocumented as of this encounter Visit Diagnoses Not on filedocumented in this encounter"
--- OUTSIDE RECORDS SUMMARY | ~2019-02-03 | XMS | Encounter Summary ---
Demographics + + + | Address | [address] | | | [place] [address] | + + + | Home Phone [...] [place], | | | | | [place] [address] | | + + + + + Care Team Providers + +------+ + | Care Cinder Pit Crane Operator Name | Role | Phone | + +------+ + PCP | Unavailable | + +------+ + Encounter Details +--------+ + + + + | Date | Type | Department | Care Team | Description | +--------+ + + + + | 04/11/ | Office | UNKNOWN DEPARTMENT | Note, Outpatient | Progress Note | | 1994 | Visit-Trans | [address] | Clinic | | | | [place] | [address] | | | | | | [place], [place] | | | | | | [address] | | | +--------+ + + + [...] as of this encounter Progress Notes Interface, Adding Machine Mechanic In - 06/11/2006 5:10 AM PDT CLINIC DATE: 04/11/94 NEUROLOGY CLINIC: Litzy returns for follow-up of her chronic pain syndrome. Since our last visit, I have had the opportunity to review an lumbosacral (LS) spine magnetic resonance imaging (MRI) performed at an outside hospital and dated 05/06/93. This was performed at [facility]. It was a good quality study [...] Follow-up in Pain Clinic. Faisal Grijalva M.D. Sales Planning Analyst, Neurology FELIZ:manuel documented in this encounter Plan of Treatment Not on filedocumented as of this encounter Visit Diagnoses Not on filedocumented in this encounter
--- OUTSIDE RECORDS SUMMARY | ~2019-02-03 | XMS | Encounter Summary ---
Demographics + + + | Address | [address] | | | [place] [address] | + + + | Home Phone [...] [place], | | | | | [place] [address] | | + + + + + Care Team Providers + +------+ + | Care Aeronautics Commission Director Name | Role | Phone | [...] as of this encounter Progress Notes Interface, Plastic Cablemaking Machine Operator In - 02/12/2006 3:04 AM PSTCLINIC DATE: [...]
--- OUTSIDE RECORDS SUMMARY | ~2019-02-03 | XMS | Encounter Summary ---
Demographics + + + | Address | [address] | | | [place] [address] | + + + | Home Phone | | + + + | Preferred Language | Unknown | + + + | Marital Status | Single | + + + | Pentecostalism Affiliation | Unknown | + + + | Race | Unknown | + + + | Ethnic Group | Unknown | + + + Author + + + | Author | [facility] | | | and [place] | + + + | Organization | [facility] | | | and [...] Team Providers + +------+ + | Care Post Office Markup Clerk Name | Role | Phone | [...] limb, left | [address] | [address] | | | | | Procedures | [place] | Phone: | | | | | MRI Knee | [address] | [phone] | | | | | Left wo | Phone: | Fax: | | | | | Contrast | [phone] | [phone] | | | | | | Fax: | | | | | | | [phone] | | +--------+--------+ + + + + [...] | Required | | stenosis | MD Felsia | MD Jose | | | | | Procedures | [address] | [address] | | | | | CSJ-S | [address] | | | | | 05/09/15 | [place] | [place] | | | | | | [address] | [address] Phone: | | | | | | Phone: | [phone] | | | | | | [phone] | Fax: | | | | | | Fax: | [phone] | | | | | | [phone] | | +--------+ + + + + + Encounter Details +--------+---------+ + + + | Date | Type | Department | Care Team | Description | +--------+---------+ + + + | 06/13/ | Office | [facility] | [place], | Nerve entrapment of | | 2016 | Visit | [facility] | [address] | lower limb, left | | | | [address] | (Primary Dx) | | | | [address] [place] | [place] | | | | | [address] | [phone] | | | | | [phone] | | | +--------+---------+ + + + [...] NRS Pain Meds 2 OSWESTRY INDEX EQ5D 78217 VAS 60 SURGICAL RISK FACTORS: Diabetes No BMI Body mass index is 22.61 kg/(m^2). 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 S/P LT Knee Replacement 2011 in [place] with Revision surgery [address] Granados. She continues t o have significant pain lateral aspect LT knee. The [facility] EMR was reviewed for relevant [...] was spent in face to fa ce food counselor and advice to patient. This medical [...]
--- OUTSIDE RECORDS SUMMARY | ~2019-02-03 | XMS | Encounter Summary ---
Demographics + + + | Address | [address] | | | [place] [address] | + + + | Home Phone | | + + + | Preferred Language | Unknown | + + + | Marital Status | Single | + + + | Caodaism Affiliation | Unknown | + + + | Race | Unknown | + + + | Ethnic Group | Unknown | + + + Author + + + | Author | [facility] | | | and [place] | + + + | Organization | [facility] | | | and [place] [...] Team Providers + +------+ + | Care Round Kiln Drawer Name | Role | Phone | + [...] + | 06/15/ | Telephone | [facility] | [place], | Appointment (Pain in | | 2016 | | [facility] | [address] | Left leg -- See | | | | [address] | comment) | | | | [address] [place] | [place] | | | | | [address] | [phone] | | | | | [phone] | | | +--------+ + + + [...]
--- OUTSIDE RECORDS SUMMARY | ~2019-02-03 | XMS | Encounter Summary ---
Demographics + + + | Address | [address] | | | [place] [address] | + + + | Home Phone [...] [place], | | | | | [place] [address] | | + + + + + Care Team Providers + +------+ + | Care Industrial Energy Engineer Name | Role | Phone | + +------+ + PCP | Unavailable | + +------+ + Encounter Details +--------+ + + + + | Date | Type | Department | Care Team | Description | +--------+ + + + + | 01/01/ | Office | UNKNOWN DEPARTMENT | Note, Outpatient | Progress Note | | 1993 | Visit-Trans | [address] [facility] | Clinic | | | | [place] | [address] | | | | | | [place], [place] | | | | | | [address] | | | +--------+ + + + [...] as of this encounter Progress Notes Interface, Centerless Grinding Machine Adjuster In - 06/14/2006 5:08 AM PDT CLINIC [...] after the above studies. Faisal Grijalva M.D. [address], Neurology JQ:bony cc: DICK ACOSTA MD [address] [address] documented in this encounter Plan of Treatment Not on filedocumented as of this encounter Visit Diagnoses Not on filedocumented in this encounter"
--- OUTSIDE RECORDS SUMMARY | ~2019-02-03 | XMS | Encounter Summary ---
Demographics + + + | Address | [address] | | | [place] [address] | + + + | Home Phone [...] Author | [facility] [place] | | | and [place] | + + + | Organization | [facility] [place] | | | and [place] | [...] Team Providers + +------+ + | Care Fuel Attendant Name | Role | Phone | + [...] | [address] | [address] | pulmonary disease, | | | | [place] | [place] | unspecified COPD | | | | [address] | [address] | type (HCC) (Primary | | | | [phone] | [phone] | Dx) | +--------+ + + + [...]
--- OUTSIDE RECORDS SUMMARY | ~2019-02-03 | XMS | Encounter Summary ---
Demographics + + + | Address | [address] | | | [place] [address] | + + + | Home Phone [...] | Author | [facility] [place] | | | and [place] | + + + | Organization | [facility] [place] | | | and [...] Team Providers + +------+ + | Care Floor Steward/Stewardess Name | Role | Phone | + [...] | | 2014 | | [place] | [address] | | | | | ENDOCRINOLOGY [address] | [address] | | | | | [address] | [place] [address] | | | | | [address] | [phone] | | | | | [address] | | | | | | [phone] | | | +--------+ + + + [...] | CORE | | | | [place] [address] | | LABORATORY | | | | [...] + + | [address] | [address] | [place] [address] | [phone] | | CORE LABORATORY (I) | | [...] | | CORE | | | | [address] | | LABORATORY | | | | [...] + + | [facility] [place] | [address] | [place] [address] | [phone] | | CORE LABORATORY (I) | | | | + + + + + documented in this encounter Visit Diagnoses + + | Diagnosis | + + | Diarrhea | + + documented in this encounter"
--- OUTSIDE RECORDS SUMMARY | ~2019-02-03 | XMS | Encounter Summary ---
Demographics + + + | Address | [address] | | | [place] [address] | + + + | Home Phone | | + + + | Preferred Language | Unknown | + + + | Marital Status | Single | + + + | Yazidi Affiliation | Unknown | + + + | Race | White | + + + | Ethnic Group | Not or | + + + Author + + + | Author | [facility] | + + + | Organization | [facility] | + + + | Address | Unknown | + + + | Phone | Unavailable | + + + Support + + + + + | Name | Relationship | Address | Phone | + + + + + | Zaida Putnam | ECON | [address] | | | | | [place], | | | | | [place] [address] | | + + + + + Care Team Providers + +------+ + | Care Assistant Office Manager Name | Role | Phone | [...] as of this encounter Progress Notes Interface, Edgerman In - 02/23/2006 5:02 AM PSTCLINIC DATE: [...] M.D. Resident, Internal Medicine Wallace Szymanski M.D. Press Operator Carbon Products, Internal Medicine TORI/JENAE/estrellita d ocumented in this encounter Plan of Treatment Not on filedocumented as of this encounter Visit Diagnoses Not on filedocumented in this encounter"
--- OUTSIDE RECORDS SUMMARY | ~2019-02-03 | XMS | Encounter Summary ---
Demographics + + + | Address | [address] | | | [place] [address] | + + + | Home Phone | | + + + | Preferred Language | Unknown | + + + | Marital Status | Single | + + + | Quaker Affiliation | Unknown | + + + | Race | Unknown | + + + | Ethnic Group | Unknown | + + + Author + + + | Author | [facility] [place] | | | and [place] | + + + | Organization | [facility] [place] | | | and [place] | [...] Team Providers + +------+ + | Care Systems Mechanic Name | Role | Phone | [...] | | | | | [address] [place] | [address] | | | | | [address] | [place] [address] | | | | | [phone] | [phone] | | | | | | | [...] through Care Everywhere.THRUSH, ORAL (Y EAST INFECTION) (ECUADOREAN)documented in this encounter Medications at Time of [...]
--- OUTSIDE RECORDS SUMMARY | ~2019-02-03 | XMS | Encounter Summary ---
Demographics + + + | Address | [address] | | | [place] [address] | + + + | Home Phone | | + + + | Preferred Language | Unknown | + + + | Marital Status | Single | + + + | Pentecostalism Affiliation | Unknown | + + + | Race | Unknown | + + + | Ethnic Group | Unknown | + + + Author + + + | Author | [facility] [place] | | | and [place] | + + + | Organization | [facility] [place] | | | and [...] Team Providers + +------+ + | Care Business Operations Coordinator Name | Role | Phone | [...] + + | 11/10/ | Clinical | [facility] | | Disorder of bone and | | 2014 | Support | Group [address] | | cartilage, | | | | [address] | | unspecified | | | | [address] | | | | | | [address] | | | | | | [phone] | | | +--------+ + + + [...] as of this encounter Progress Eunice Shaw, Fence Gate Assembler - 11/10/2014 3:21 PM PDTA/P Spine and [...]
--- OUTSIDE RECORDS SUMMARY | ~2019-02-03 | XMS | Encounter Summary ---
Demographics + + + | Address | [address] | | | [place] [address] | + + + | Home Phone [...] Author + + + | Author | [facility] | + + + | Organization | [facility] | + + + | Address | Unknown | + + + | Phone | Unavailable | + + + Support + + + + + | Name | Relationship | Address | Phone | + + + + + | Zaida Putnam | ECON | [address] | | | | | [place], | | | | | [place] [address] | | + + + + + Care Team Providers + +------+ + | Care Research Assistant Member Name | Role | Phone | + [...] Clinic | | | | | | [facility] [place] [facility], [address] | | | | | | [place], [place] | | | | | | [address] | | | | | | [phone] | | | +--------+ + + + [...] of this encounter Progress Notes Interface, Manager Of Employee Relations In - 06/01/2006 3:00 AM PDT CLINIC [...] in the Pain Clinic. Faisal Grijalva M.D. Veterans Contact Representative, Neurology JQ/wtgarfield documented in this encounter Plan of Treatment Not on filedocumented as of this encounter Visit Diagnoses Not on filedocumented in this encounter"
--- OUTSIDE RECORDS SUMMARY | ~2019-02-03 | XMS | Encounter Summary ---
Demographics + + + | Address | [address] | | | [place] [address] | + + + | Home Phone [...] [place], | | | | | [place] [address] | | + + + + + Care Team Providers + +------+ + | Care Product Safety Coordinator Name | Role | Phone | + +------+ + PCP | Unavailable | + +------+ + Encounter Details +--------+ + + + + | Date | Type | Department | Care Team | Description | +--------+ + + + + | 04/11/ | Office | UNKNOWN DEPARTMENT | Note, Outpatient | Progress Note | | 1994 | Visit-Trans | [address] [facility] | Clinic | | | | [place] | [address] | | | | | | [place], [place] | | | | | | [address] | | | +--------+ + + + [...] as of this encounter Progress Notes Interface, Childbirth Educator In - 06/11/2006 5:10 AM PDT CLINIC DATE: 04/11/94 NEUROLOGY CLINIC: Litzy returns for follow-up of her chronic pain syndrome. Since our last visit, I have had the opportunity to review an lumbosacral (LS) spine magnetic resonance imaging (MRI) performed at an outside hospital and dated 05/06/93. This was performed at [facility]. It was a good quality study [...] Follow-up in Pain Clinic. Faisal Grijalva M.D. Dietary Service Aide, Neurology FELIZ:manuel documented in this encounter Plan of Treatment Not on filedocumented as of this encounter Visit Diagnoses Not on filedocumented in this encounter
--- OUTSIDE RECORDS SUMMARY | ~2019-02-03 | XMS | Encounter Summary ---
Demographics + + + | Address | [address] | | | [place] [address] | + + + | Home Phone | | + + + | Preferred Language | Unknown | + + + | Marital Status | Single | + + + | Spiritism Affiliation | Unknown | + + + | Race | Unknown | + + + | Ethnic Group | Unknown | + + + Author + + + | Author | [facility] [place] | | | and [place] | + + + | Organization | [facility] [place] | | | and [place] [...] Providers + +------+ + | Care Computer Numerical Control Programmer Name | Role | Phone | + [...] | [address] | [address] | pulmonary disease, | | | | [place] | [place] | unspecified COPD | | | | [address] | [address] | type (HCC) (Primary | | | | [phone] | [phone] | Dx) | +--------+ + + + [...]
--- OUTSIDE RECORDS SUMMARY | ~2019-02-03 | XMS | Encounter Summary ---
Demographics + + + | Address | [address] | | | [place] [address] | + + + | Home Phone [...] [place], | | | | | [place] [address] | | + + + + + Care Team Providers + +------+ + | Care Area Attendant Name | Role | Phone | [...] | | | | | | [facility], [address] | | | | | | [place], [place] | | | | | | [address] | | | | | | [phone] | | | +--------+ + + + [...] as of this encounter Progress Notes Interface, Geography Department Chair In - 06/05/2006 1:00 AM PDT CLINIC [...] Ms. 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 John Mulligan M.D. Smoke Inspector, Anesthesiology Director, Pain Management Services HUI/fernando documented in this encounter Plan of Treatment Not on filedocumented as of this encounter Visit Diagnoses Not on filedocumented in this encounter"
--- OUTSIDE RECORDS SUMMARY | ~2019-02-03 | XMS | Encounter Summary ---
Demographics + + + | Address | [address] | | | [place] [address] | + + + | Home Phone [...] [place], | | | | | [place] [address] | | + + + + + Care Team Providers + +------+ + | Care Peoplesoft Developer Name | Role | Phone | [...] as of this encounter Progress Notes Interface, Dough Raiser In - 02/28/2006 3:08 AM [facility] [place] [address] [place] [address] or November 05, 1997 OLEG PUGH MD [address] [facility] [address] RE: L[place]ZY EVANS MR#: [id number] Pugh: I had the pleasure of seeing your patient, Ms. Lit[place], at the [facility] today for evaluation of her chronic pain problem. Ms. Evans tells me that she has moved to [place] within the last week and plans to establish care in the month of November with Dr. Kaleb Velásquez here at [facility]. Therefore, I will send you a copy of this letter, as well as Dr. Velásquez. Please allow me to briefly review Ms. Evans' history, as well as my evaluations, findings, and suggestions. Ms. Evans is a 42-year-old woman with a longstanding history of low back pain who had been previously treated at the [facility] prior to my arrival at [facility]. She states that she has had [...] tried a variety of medications including Tegretol, Sunrise, Amitriptyline, and other antidepressants. CURRENT MEDICATIONS: 1. [...] has recently ended. She has moved to [place] and is now living with an ex-'s mother. 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 She smokes one pack of cigarettes a [...] also with some difficulty. Romberg is negative. Bocdpu-trca-wnrrmi is normal. On examination of her chest [...] normal limits." IMPRESSION: 1. Fibromyalgia by 1990 [place] [employer] criteria. 2. Significant psychiatric [...] her care from Internal Medicine here at [facility], would be for her to see [...] the 1995 intractable pain act here in [place]. I agreed with Ms. Evans that should she establish care with Dr. Velásquez here at [facility], I would be happy to discuss her care with him at that point. In the meantime, I have nothing additional or specific to offer for Ms. Evans' care. Thank you very much for your referral of Ms. Evans to the Pain Management Center here at [facility]. If you have any questions or concerns, please do not hesitate to give me a call at [phone]. Monroe Pruitt M.D. Regional Vice President Surgical Sales, Anesthesiology Director of Pain Management Center BRS:mau cc: Kaleb Velásquez M.D. Regional Vice President Surgical Sales, Medicine Richie Her, M.D. Regional Vice President Surgical Sales, Department of Orthopedics and Rehabilitation Kaleb Velásquez M.D. Regional Vice President Surgical Sales, Medicine Richie Her M.D. Regional Vice President Surgical Sales, Department of Orthopedics and Rehabilitation documented in this encounter Plan of Treatment Not on filedocumented as of this encounter Visit Diagnoses Not on filedocumented in this encounter
--- OUTSIDE RECORDS SUMMARY | ~2019-02-03 | XMS | Encounter Summary ---
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 [...] | implant | [address] | Surg [address] | | | | | status | [place] | [address] | | | | | | [address] | [place] [address] | | | | | | Tristan | [place] | | | | | | [place] | [address] | | | | | | [address] | Phone: | | | | | | Phone: | [phone] | | | | | | [phone] | Fax: | | | | | | | [phone] | +--------+--------+ + + + + Encounter Details +--------+---------+ + + + | Date | Type | Department | Care Team | Description | +--------+---------+ + + + | 09/20/ | Office | [facility] | Wesley Mckeon, | Breast implant | | 2015 | Visit | Surgery [address] | [place] [address] | opal, initial | | | | [address] | [place] | encounter (Primary | | | | [place] | [place] [address] | Dx) | | | | [address] | [phone] | | | | | [phone] | | | +--------+---------+ + + + [...] this encounter Progress Notes Pasquale Granados V, WOOD TILE INSTALLER - 09/21/2015 3:20 PM PDTFormatting of this [...] Alcohol Use: No The patient lives in [place]. Family History: Family History Problem Relation Age [...]
--- OUTSIDE RECORDS SUMMARY | ~2019-02-03 | XMS | Encounter Summary ---
Demographics + + + | Address | [address] | | | [place] [address] | + + + | Home Phone [...] [place], | | | | | [place] [address] | | + + + + + Care Team Providers + +------+ + | Care Rpg Programmer Analyst Name | Role | Phone | + +------+ + PCP | Unavailable | + +------+ + Encounter Details +--------+ + + + + | Date | Type | Department | Care Team | Description | +--------+ + + + + | 05/13/ | Results | | Other, Faculty | | | 1998 | Only | | [phone] | | +--------+ + + + + [...] | | + +---------+ + + | [facility] DEPARTMENT OF | | | | | RADIOLOGY | | | | + +---------+ + + documented in this encounter Visit Diagnoses Not on filedocumented in this encounter"
--- OUTSIDE RECORDS SUMMARY | ~2019-02-03 | XMS | Encounter Summary ---
Demographics + + + | Address | [address] | | | [place] [address] | + + + | Home Phone [...] [place], | | | | | [place] [address] | | + + + + + Care Team Providers + +------+ + | Care Side Panel Padder Name | Role | Phone | + [...] as of this encounter Progress Notes Interface, Container Filler In - 02/07/2006 1:09 AM PSTCLINIC DATE: [...] or throat itching. She has been taking ieiu-yoy-qyjkxpx pseudoephedrine, but has not noted much relief. [...] Ms. Evans is planning to move to [place]. We will forward her records as soon [...]
--- OUTSIDE RECORDS SUMMARY | ~2019-02-03 | XMS | Encounter Summary ---
Demographics + + + | Address | [address] | | | [place] [address] | + + + | Home Phone | | + + + | Preferred Language | Unknown | + + + | Marital Status | Single | + + + | Scientologist Affiliation | Unknown | + + + [...] [place], | | | | | [place] [address] | | + + + + + Care Team Providers + +------+ + | Care Magazine Writer Name | Role | Phone | [...]
--- OUTSIDE RECORDS SUMMARY | ~2019-02-03 | XMS | Encounter Summary ---
Demographics + + + | Address | [address] | | | [place] [address] | + + + | Home Phone [...] [place], | | | | | [place] [address] | | + + + + + Care Team Providers + +------+ + | Care Clip And Hanger Attacher Name | Role | Phone | + +------+ + PCP | Unavailable | + +------+ + Encounter Details +--------+ + + + + | Date | Type | Department | Care Team | Description | +--------+ + + + + | 09/26/ | Results | | Other, Faculty | | | 1993 | Only | | [phone] | | +--------+ + + + + [...]
--- OUTSIDE RECORDS SUMMARY | ~2019-02-03 | XMS | Encounter Summary ---
Demographics + + + | Address | [address] | | | [place] [address] | + + + | Home Phone [...] Author | [facility] [place] | | | and [place] | + + + | Organization | [facility] [place] | | | and [place] [...] Team Providers + +------+ + | Care Unishear Operator Name | Role | Phone | [...] | | | | | Phone: | [phone] | | | | | | [phone] | Fax: | | | | | | Fax: | [phone] | | | | | | [phone] | | +--------+ + + + + [...] | | and other | [place] | [address] | | | | | examinations | [address] | Phone: | | | | | of body | Phone: | [phone] | | | | | structure | [phone] | Fax: | | | | | Procedures | | [phone] | | | | | CSJ-06/29 | | | +--------+--------+ + + + + Encounter Details +--------+---------+ + + + | Date | Type | Department | Care Team | Description | +--------+---------+ + + + | 05/08/ | Office | [facility] [place] [facility] | Tapan Bragg | Lumbar stenosis | | 2016 | Visit | [facility] | MD [address] | (Primary Dx) | | | | [address] [facility] | [facility] [address] [place], | | | | | [address] | [place] [address] | | | | | [address] | [phone] | | | | | [phone] | | | +--------+---------+ + + + [...] up for MY CHART at the front office clerk. Just ask the staff there to [...] up for MY CHART at the front office clerk. Just ask the staff there to [...]
--- OUTSIDE RECORDS SUMMARY | ~2019-02-03 | XMS | Encounter Summary ---
Demographics + + + | Address | [address] | | | [place] [address] | + + + | Home Phone [...] + + | Author | [facility] | | | and [place] | + + + | Organization | [facility] [place] | | | and [place] [...] Team Providers + +------+ + | Care Feather Washer Name | Role | Phone | + [...] | | 2014 | | ECTOR | [address] | | | | | ENDOCRINOLOGY [address] | [address] | | | | | [address] | [place] [address] | | | | | [address] | [phone] | | | | | [address] | | | | | | [phone] | | | +--------+ + + + [...] | CORE | | | | [place] [address] | | LABORATORY | | | | [...] [address] | [address] | [place] [address] | [phone] | | CORE LABORATORY (I) | | [...] | | CORE | | | | [address] | | LABORATORY | | | | [...] + + | [facility] E[facility] | [address] | [place] [address] | [phone] | | CORE LABORATORY (I) | | | | + + + + + documented in this encounter Visit Diagnoses + + | Diagnosis | + + | Diarrhea | + + documented in this encounter"
--- OUTSIDE RECORDS SUMMARY | ~2019-02-03 | XMS | Encounter Summary ---
Demographics + + + | Address | [address] | | | [place] [address] | + + + | Home Phone [...] [place], | | | | | [place] [address] | | + + + + + Care Team Providers + +------+ + | Care Press Cutter Name | Role | Phone | [...] [id number] | | | | | | [place], [place] | | | | | | [address] | | | | | | [phone] | | | +--------+ + + + [...] | + + + + + | [facility] | [address] | [place] [address] | | | PATHOLOGY | [address] | | | + + + + + documented in this encounter Visit Diagnoses Not on filedocumented in this encounter"
--- OUTSIDE RECORDS SUMMARY | ~2019-02-03 | XMS | Encounter Summary ---
Demographics + + + | Address | [address] | | | [place] [address] | + + + | Home Phone [...] [place], | | | | | [place] [address] | | + + + + + Care Team Providers + +------+ + | Care Corporate Account Executive Name | Role | Phone | + [...] [id number] | | | | | | [place], [place] | | | | | | [address] | | | | | | [phone] | | | +--------+ + + + [...] | + + + + + | [facility] | [address] | [place] [address] | | | PATHOLOGY | [address] [...] | + + + + + | [facility] | [address] | [place] [address] | | | PATHOLOGY | [address] [...] | + + + + + | [facility] | [address] | [place] [address] | | | PATHOLOGY | [address] [...] | + + + + + | [facility] | [address] | [place] [address] | | | PATHOLOGY | [address] [...] | + + + + + | [facility] | [address] | [place] [address] | | | PATHOLOGY | [address] [...] | + + + + + | [facility] | [address] | [place] [address] | | | PATHOLOGY | [address] | | | + + + + + documented in this encounter Visit Diagnoses Not on filedocumented in this encounter"
--- OUTSIDE RECORDS SUMMARY | ~2019-02-03 | XMS | Encounter Summary ---
Demographics + + + | Address | [address] | | | [place] [address] | + + + | Home Phone [...] [place], | | | | | [place] [address] | | + + + + + Care Team Providers + +------+ + | Care Corporate Counselor Name | Role | Phone | [...] as of this encounter Progress Notes Interface, Punchboard Inserter In - 02/21/2006 3:06 AM PSTCLINIC DATE: [...] M.D. Resident, Internal Medicine Wallace Szymanski M.D. Process Coach, Internal Medicine TORI/joshua d ocumented in this encounter Plan of Treatment Not on filedocumented as of this encounter Visit Diagnoses Not on filedocumented in this encounter"
--- OUTSIDE RECORDS SUMMARY | ~2019-02-03 | XMS | Encounter Summary ---
Demographics + + + | Address | [address] | | | [place] [address] | + + + | Home Phone [...] Author | [facility] | | | and [place] | + + + | Organization | [facility] | | | and [...] Providers + +------+ + | Care Senior Production Manager Name | Role | Phone | + +------+ + | Timothy Elmore | PCP | | + +------+ + Reason for Visit + + + | Reason | Comments | + + + | Establish Care | CRAFT CENTER DIRECTOR : Lumbar Spine : Referred by PCP [...] | | and other | [place] | [address] | | | | | examinations | [address] | Phone: | | | | | of body | Phone: | [phone] | | | | | structure | [phone] | Fax: | | | | | Procedures | | [phone] | | | | | CSJ-06/29 | | | +--------+--------+ + + + + Encounter Details +--------+---------+ + + + | Date | Type | Department | Care Team | Description | +--------+---------+ + + + | 08/09/ | Office | [facility] | Tapan Bragg | Left foot drop | | 2015 | Visit | [facility] | MD Felisa [address] | (Primary Dx) | | | | [address] [facility] | [address], | | | | | [address] [place] | [place] | | | | | [address] | [phone] | | | | | [phone] | | | +--------+---------+ + + + [...]
--- OUTSIDE RECORDS SUMMARY | ~2019-02-03 | XMS | Encounter Summary ---
Demographics + + + | Address | [address] | | | [place] [address] | + + + | Home Phone [...] Author | [facility] | | | and [place] | + + + | Organization | [facility] | | | and [...] Providers + +------+ + | Care Credit Risk Analyst Name | Role | Phone | [...] (ArnoldaScvitor | | 2015 | | [address] [facility] | [address] | prep) | | | | [address] | [address] [place] | | | | | [place] | [address] | | | | | [address] | [phone] | | | | | [phone] | | | +--------+ + + + [...]
--- OUTSIDE RECORDS SUMMARY | ~2019-02-03 | XMS | Encounter Summary ---
Demographics + + + | Address | [address] | | | [place] [address] | + + + | Home Phone [...] [place], | | | | | [place] [address] | | + + + + + Care Team Providers + +------+ + | Care Editor House Organ Name | Role | Phone | + [...] Clinic | | | | | | [facility], [address] | | | | | | [place], [place] | | | | | | [address] | | | | | | [phone] | | | +--------+ + + + [...] as of this encounter Progress Notes Interface, Pheresis Specialist In - 06/05/2006 1:00 AM PDT [...] Ms. 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 John Mulligan M.D. Mathematics Instructor, Anesthesiology Director, Pain Management Services HUI/fernando documented in this encounter Plan of Treatment Not on filedocumented as of this encounter Visit Diagnoses Not on filedocumented in this encounter"
--- OUTSIDE RECORDS SUMMARY | ~2019-02-03 | XMS | Clinical Summary ---
Demographics + + + | Address | [address] | | | [place] [address] | + + + | Home Phone [...] [place], | | | | | [place] [address] | | + + + + + Care Team Providers + +------+ + | Care Steam Shovel Operating Engineer Name | Role | Phone | + +------+ + PCP | Unavailable | + +------+ + Source Comments MARY is fully live on both [facility] and [facility] InPatient.[facility] Allergies Not on File Medications Not [...]
--- OUTSIDE RECORDS SUMMARY | ~2019-02-03 | XMS | Encounter Summary ---
Demographics + + + | Address | [address] | | | [place] [address] | + + + | Home Phone | | + + + | Preferred Language | Unknown | + + + | Marital Status | Single | + + + | Sikhism Affiliation | Unknown | + + + | Race | Unknown | + + + | Ethnic Group | Unknown | + + + Author + + + | Author | [facility] | | | and [place] | + + + | Organization | [facility] | [...] Providers + +------+ + | Care Change Control Specialist Name | Role | Phone [...] | | | | oral mucosa | [address] | [place] | | | | | | [place], [place] | [place] [address] | | | | | | [address] | [place], [place] | | | | | | Phone: | [phone] Phone: | | | | | | [phone] | [phone] | | | | | | Fax: | Fax: | | | | | | [phone] | [phone] | +--------+--------+ + + + + Encounter Details +--------+---------+ + + + | Date | Type | Department | Care Team | Description | +--------+---------+ + + + | 12/07/ | Office | [facility] | Jamir Griffith, | Oral lesion (Primary | | 2016 | Visit | [facility] 1330 | MD 1330 | Dx); Tinnitus, | | | | Oakdaledorothy Valdez [address] | CHARLES VALDEZ [place] | bilateral; | | | | [address] | [address] | Hoarseness; ETD | | | | [phone] | [phone] | (eustachian tube | | | | [...] that she had thrush earlier in the [facility], [facility] related to use of prolonged prednisone. [...] regarding hearing loss. I spent 50 minutes ofjo-hg-ixyp with Litzy Evans today; greater than 50% [...]
--- OUTSIDE RECORDS SUMMARY | ~2019-02-03 | XMS | Encounter Summary ---
Demographics + + + | Address | [address] | | | [place] [address] | + + + | Home Phone [...] [place], | | | | | [place] [address] | | + + + + + Care Team Providers + +------+ + | Care Coroner/Medical Examiner Name | Role | Phone | + +------+ + PCP | Unavailable | + +------+ + Encounter Details +--------+ + + + + | Date | Type | Department | Care Team | Description | +--------+ + + + + | 06/26/ | Office | General Internal | Note, Outpatient | Progress Note | | 1994 | Visit-Trans | Medicine [address] | Clinic | | | | merritt | Arthur [facility] | | | | | | Mailcode: [id number] | | | | | | Outpatient Clinic | | | | | | [facility], [address] | | | | | | [place], [place] | | | | | | [address] | | | | | | [phone] | | | +--------+ + + + [...] as of this encounter Progress Notes Interface, Qa Lead In - 06/06/2006 5:07 AM PDT CLINIC [...] addition, she remains active in her local jew and is in the process of moving [...] 2. Bladder dysfunction, resolved. John Mulligan M.D. Alumni Relations Coordinator, Anesthesiology Director, Pain Management Services HUI /efren A documented in this encounter Plan of Treatment Not on filedocumented as of this encounter Visit Diagnoses Not on filedocumented in this encounter"
--- OUTSIDE RECORDS SUMMARY | ~2019-02-03 | XMS | Encounter Summary ---
Demographics + + + | Address | [address] | | | [place] [address] | + + + | Home Phone [...] [place], | | | | | [place] [address] | | + + + + + Care Team Providers + +------+ + | Care Financial Systems Analyst Name | Role | Phone | [...] as of this encounter Progress Notes Interface, Credit Administration Officer In - 02/17/2006 3:01 AM PSTCLINIC DATE: 03/09/1998 INTERNAL MEDICINE CLINIC SUBJECTIVE: This is a patient of Mp Milton who comes in today with pain exacerbation secondary to her fibromyalgia and chronic low back pain. At the last visit she made a verbal commitment for management of her chronic pain, which included an agreement that Mp was her sole Vicodin relocation manager. She attempted to make an appointment [...]
--- OUTSIDE RECORDS SUMMARY | ~2019-02-03 | XMS | Encounter Summary ---
Demographics + + + | Address | [address] | | | [place] [address] | + + + | Home Phone [...] [place], | | | | | [place] [address] | | + + + + + Care Team Providers + +------+ + | Care Cleaning Matron Name | Role | Phone | + [...]
--- OUTSIDE RECORDS SUMMARY | ~2019-02-03 | XMS | Encounter Summary ---
Demographics + + + | Address | [address] | | | [place] [address] | + + + | Home Phone | | + + + | Preferred Language | Unknown | + + + | Marital Status | Single | + + + | Druze Affiliation | Unknown | + + + | Race | Unknown | + + + | Ethnic Group | Unknown | + + + Author + + + | Author | [facility] | | | and [place] | + + + | Organization | [facility] | | | and [...] Team Providers + +------+ + | Care Wood Lather Name | Role | Phone | + [...] | 12/23/ | Clinical | [facility] | | Elevated cortisol | | 2015 | Support | [place] | | level (HCC) (Primary | | | | ENDOCRINOLOGY 1330 | | Dx); Decreased | | | | ROCKAILIN CHUNG [place] | | cortisol level ([facility]) | | | | [address] | | | | | | [address] | | | | | | [phone] | | | +--------+ + + + [...] | | Right | | Intramuscular, ONCE, [facility] 12/23/14 | | AM PST | [...]
--- OUTSIDE RECORDS SUMMARY | ~2019-02-03 | XMS | Encounter Summary ---
Demographics + + + | Address | [address] | | | [place] [address] | + + + | Home Phone [...] [place], | | | | | [place] [address] | | + + + + + Care Team Providers + +------+ + | Care Signing Teacher Name | Role | Phone | [...] as of this encounter Progress Notes Interface, Child Nutrition Director In - 02/28/2006 3:08 AM PST [facility] Account No. PROGRESS RECORD Name Litzy Evans Birthdate 1955 Date Probl Time em FORMAT: PROBLEM NUMBER and TITLE: S=Subjective Number O=Objective A=Analysis P=Plans CLINIC DATE: 11/05/1997 November 05, 1997 OLEG PUGH MD [address] [facility] [address] RE: Litzy EVANS. MR#: [id number] : 51 [...] November with Dr. Kaleb Velásquez here at [facility]. Therefore, I will send you a copy of this letter, as well as Dr. Velásquez. Please allow me to briefly review Ms. Evans' history, as well as my evaluations, findings, and suggestions. Ms. Evans is a 42-year-old woman with a longstanding history of low back pain who had been previously treated at the [facility] prior to my arrival at [facility]. She states that she has had [...] tried a variety of medications including Tegretol, Plessis, Amitriptyline, and other antidepressants. CURRENT MEDICATIONS: 1. 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 She smokes one pack of cigarettes a [...] also with some difficulty. Romberg is negative. Xhxubi-cacm-iujtgu is normal. On examination of her chest [...] normal limits." IMPRESSION: 1. Fibromyalgia by 1990 [employer] criteria. 2. Significant psychiatric [...] her care from Internal Medicine here at [facility], would be for her to see [...] establish care with Dr. Velásquez here at [facility], I would be happy to discuss her care with him at that point. In the meantime, I have nothing additional or specific to offer for Ms. Evans' care. Thank you very much for your referral of Ms. Evans to the [facility] here at [facility]. If you have any questions or concerns, please do not hesitate to give me a call at [phone]. Monroe Pruitt M.D. Help Aid, Anesthesiology Director of Pain Management Center BRS:mau cc: Kaleb Velásquez M.D. Help Aid, Medicine Richie Her M.D. Help Aid, Department of Orthopedics and Rehabilitation nterface, Child Nutrition Director In - 02/28/2006 3:08 AM PSTCLINIC DATE: 11/05/97 PHONE CALL: Litzy called today requesting more Vicodin. She wanted it called to [facility]. I spoke with Dr. Her in regard to this and he declined the request. I called the patient at 16:15 and left a message to that effect. The phone number is [phone]. Lindsay Romeo R.N. Orthopedics HALLIE/emily P cc: documente d in this encounter Plan of Treatment Not on filedocumented as of this encounter Visit Diagnoses Not on filedocumented in this encounter
--- OUTSIDE RECORDS SUMMARY | ~2019-02-03 | XMS | Encounter Summary ---
Demographics + + + | Address | [address] | | | [place] [address] | + + + | Home Phone [...] [place], | | | | | [place] [address] | | + + + + + Care Team Providers + +------+ + | Care Oncology Consultant Name | Role | Phone | [...] as of this encounter Progress Notes Interface, Forestry Aide In - 02/28/2006 3:08 AM PSTCLINIC DATE: [...] recently by a family medicine service in [place], [place]. 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 Richie Her M.D. Hand Salter, Department of Orthopedics and Rehabilitation DANELLE/emily P documented in this encounter Plan of Treatment Not on filedocumented as of this encounter Visit Diagnoses Not on filedocumented in this encounter"
--- OUTSIDE RECORDS SUMMARY | ~2019-02-03 | XMS | Encounter Summary ---
Demographics + + + | Address | [address] | | | [place] [address] | + + + | Home Phone [...] [place], | | | | | [place] [address] | | + + + + + Care Team Providers + +------+ + | Care Director Museum Or Zoo Name | Role | Phone | + [...] [id number] | | | | | | [place], [place] | | | | | | [address] | | | | | | [phone] | | | +--------+ + + + [...] + + + + | [facility] | [address] | [place] [address] | | | PATHOLOGY | [address] | | | + + + + + documented in this encounter Visit Diagnoses Not on filedocumented in this encounter"
--- OUTSIDE RECORDS SUMMARY | ~2019-02-03 | XMS | Encounter Summary ---
Demographics + + + | Address | [address] | | | [place] [address] | + + + | Home Phone [...] | Author | [facility] | | | and [place] | + + + | Organization | [facility] | | | and [place] [...] Team Providers + +------+ + | Care Labview Programmer Name | Role | Phone | [...] 06/15/ | Telephone | [facility] | Jacklyn, | Appointment (Pain in | | 2016 | | [facility] | MD Jose [address] | Left leg -- See | | | | [address] | comment) | | | | [address] | [place] | | | | | [address] | [phone] | | | | | [phone] | | | +--------+ + + + [...]
--- OUTSIDE RECORDS SUMMARY | ~2019-02-03 | XMS | Encounter Summary ---
Demographics + + + | Address | [address] | | | [place] [address] | + + + | Home Phone [...] [place], | | | | | [place] [address] | | + + + + + Care Team Providers + +------+ + | Care Sleep Manager Name | Role | Phone | [...] as of this encounter Progress Notes Interface, Fork Lift Mechanic In - 02/23/2006 5:02 AM PSTCLINIC [...] M.D. Resident, Internal Medicine Wallace Szymanski M.D. Furnace Tapper, Internal Medicine TORI:mau d ocumented in this encounter Plan of Treatment Not on filedocumented as of this encounter Visit Diagnoses Not on filedocumented in this encounter
--- OUTSIDE RECORDS SUMMARY | ~2019-02-03 | XMS | Encounter Summary ---
Demographics + + + | Address | [address] | | | [place] [address] | + + + | Home Phone [...] Author | [facility] | | | and [place] | + + + | Organization | [facility] | | | and [...] Team Providers + +------+ + | Care Hammerer Helper Name | Role | Phone | + +------+ + | Timothy Elmore | PCP | | + +------+ + Encounter Details +--------+ + + + + | Date | Type | Department | Care Team | Description | +--------+ + + + + | 08/18/ | Abstract | [facility] | Karlee, | Dental caries | | 2015 | | PHYSIATRY [address] | Yfn Sabillon CMA | (Primary Dx); | | | | [address] | | Depression; | | | | [place] | | Essential | | | | [address] | | hypertension | | | | [phone] | | | +--------+ + + + [...]
--- OUTSIDE RECORDS SUMMARY | ~2019-02-03 | XMS | Encounter Summary ---
Demographics + + + | Address | [address] | | | [place] [address] | + + + | Home Phone | | + + + | Preferred Language | Unknown | + + + | Marital Status | Single | + + + | Tenriism Affiliation | Unknown | + + + | Race | Unknown | + + + | Ethnic Group | Unknown | + + + Author + + + | Author | [facility] | | | and [place] | + + + | Organization | [facility] | | | and [...] Team Providers + +------+ + | Care Shuttle Car Operator Name | Role | Phone | [...] | | | | | y | [address] | | | | | | Procedures | Phone: | | | | | | evaluate and | [phone] | | | | | | treat | | | +--------+--------+ + + + + Encounter Details +--------+---------+ + + + | Date | Type | Department | Care Team | Description | +--------+---------+ + + + | 12/14/ | Office | [facility] [place] [facility] | Joe Flores, | Pancreatic | | 2015 | Visit | [place] | [address] | insufficiency | | | | ENDOCRINOLOGY [address] | [address] | (Primary Dx); | | | | [address] | [place] [address] | Diarrhea; Loss of | | | | [address] [place], [place] | [phone] | appetite; Weight | | | | [address] | | loss | | | | [phone] | | | +--------+---------+ + + + [...] some workup that has been done at [facility]. I received a note from a surgical evaluat ion she had at [facility]. She has also had gastroenterology evaluation at [facility] as well, I do not have [...] syndrome. Furthermore, I would suggest to her [facility] provider that he screen and evaluate [...] | | CORE | | | | [place] [address] | | LABORATORY | | | | [...] + + | [address] | [address] | [place] [address] | [phone] | | CORE LABORATORY (I) | | [...] | | | | | [address] [place] | | | | | | | [...] | [address] | [place] [address] | [phone] | | CORE LABORATORY (I) | | [...] | | CORE | | | | [address] | | LABORATORY | | | | [...] + + | [address] | [address] | [place] [address] | [phone] | | CORE LABORATORY (I) | | [...] | | (I) | | | | [facility].Performed by | | | | [...] | [address] | [place] [address] | [phone] | | CORE LABORATORY (I) | | [...] | CORE | | | | [place] [address] | | LABORATORY | | | | [...] + + | [address] | [address] | [place] [address] | [phone] | | CORE LABORATORY (I) | | [...] | | CORE | | | | [address] | | LABORATORY | | | | [...] + + | [address] | [address] | [place] [address] | [phone] | | CORE LABORATORY (I) | | [...]
--- OUTSIDE RECORDS SUMMARY | ~2019-02-03 | XMS | Encounter Summary ---
Demographics + + + | Address | [address] | | | [place] [address] | + + + | Home Phone | | + + + | Preferred Language | Unknown | + + + | Marital Status | Single | + + + | Sabianism Affiliation | Unknown | + + + [...] [place], | | | | | [place] [address] | | + + + + + Care Team Providers + +------+ + | Care Professional Athletes Coach Name | Role | Phone | + [...] as of this encounter Progress Notes Interface, Biodiesel Engine Specialist In - 02/17/2006 3:01 AM PSTCLINIC DATE: 03/09/1998 INTERNAL MEDICINE CLINIC SUBJECTIVE: This is a patient of Mp Milton who comes in today with pain exacerbation secondary to her fibromyalgia and chronic low back pain. At the last visit she made a verbal commitment for management of her chronic pain, which included an agreement that Mp was her sole Vicodin manager banking. She attempted to make an appointment with [...]
--- OUTSIDE RECORDS SUMMARY | ~2019-02-03 | XMS | Encounter Summary ---
Demographics + + + | Address | [address] | | | [place] [address] | + + + | Home Phone [...] [place], | | | | | [place] [address] | | + + + + + Care Team Providers + +------+ + | Care Community Service Coordinator Name | Role | Phone | [...] [address] | | | | | | [place] | | | | | | [address] | | | +--------+ + + + [...] as of this encounter Progress Notes Interface, Histopathologist In - 06/14/2006 5:08 AM PDT [address] [address] [facility] December 25, 1993 LEILANI ACOSTA MD [address] [place] [address] RE:Litzy Evans MR#:[id number] Acosta: Thank you for referring Litzy Evans to the [facility] for evaluation. I found her [...] your kind referral. Sincerely, Faisal Grijalva M.D. Superintendent Water And Sewer Systems, Neurology JFQ/mrd December 26, 1993 documented in this encounter Plan of Treatment Not on filedocumented as of this encounter Visit Diagnoses Not on filedocumented in this encounter"
--- OUTSIDE RECORDS SUMMARY | ~2019-02-03 | XMS | Encounter Summary ---
Demographics + + + | Address | [address] | | | [place] [address] | + + + | Home Phone [...] | Author | [facility] | | | and [place] | + + + | Organization | [facility] | | | and [place] [...] Team Providers + +------+ + | Care Transplant Nurse Name | Role | Phone | [...] | | [address] | [place] [address] | | | | | [address] [place] | [phone] | | | | | [address] | | | | | | [phone] | | | +--------+ + + + [...]
--- OUTSIDE RECORDS SUMMARY | ~2019-02-03 | XMS | Encounter Summary ---
Demographics + + + | Address | [address] | | | [place] [address] | + + + | Home Phone [...] + | Author | [facility] | | | and [place] | + + + | Organization | [facility] | | | and [place] | + + + | Address | Unknown | + + + | Phone | Unavailable | + + + Support + + +---------+ + | Name | Relationship | Address | Phone | + + +---------+ + | Cesar Alonrda | [place] | Unknown | | + + +---------+ + Care Team Providers + +------+ + | Care Pellet Mill Operator Name | Role | Phone | [...] + | 08/09/ | Telephone | [facility] | Tapan Bragg | Appointment (today's | | 2015 | | [facility] | MD [address]isa [address] | appt) | | | | [address] [facility] | [address] [place], | | | | | [address] [place] | [place] | | | | | [address] | [phone] | | | | | [phone] | | | +--------+ + + + [...]
--- OUTSIDE RECORDS SUMMARY | ~2019-02-03 | XMS | Encounter Summary ---
Demographics + + + | Address | [address] | | | [place] [address] | + + + | Home Phone [...] [place], | | | | | [place] [address] | | + + + + + Care Team Providers + +------+ + | Care Life Enrichment Manager Name | Role | Phone | + +------+ + PCP | Unavailable | + +------+ + Encounter Details +--------+ + + + + | Date | Type | Department | Care Team | Description | +--------+ + + + + | 05/13/ | Results | | Other, Faculty | | | 1998 | Only | | [phone] | | +--------+ + + + + [...] | + +---------+ + + | [facility] DEPARTMENT OF | | | | | RADIOLOGY | | | | + +---------+ + + documented in this encounter Visit Diagnoses Not on filedocumented in this encounter"
--- OUTSIDE RECORDS SUMMARY | ~2019-02-03 | XMS | Encounter Summary ---
Demographics + + + | Address | [address] | | | [place] [address] | + + + | Home Phone [...] | Author | [facility] | | | and [place] | + + + | Organization | [facility] | | | and [...] Team Providers + +------+ + | Care Lumpia Wrapper Maker Name | Role | Phone | [...] | | | | | y | [address] | | | | | | Procedures | Phone: | | | | | | evaluate and | [phone] | | | | | | treat | | | +--------+--------+ + + + + Encounter Details +--------+---------+ + + + | Date | Type | Department | Care Team | Description | +--------+---------+ + + + | 12/14/ | Office | [facility] [place] [facility] | Joe Flores, | Pancreatic | | 2015 | Visit | [place] | [address] | insufficiency | | | | ENDOCRINOLOGY [address] | [address] | (Primary Dx); | | | | [address] | [place] [address] | Diarrhea; Loss of | | | | [address] [place], [place] | [phone] | appetite; Weight | | | | [address] | | loss | | | | [phone] | | | +--------+---------+ + + + [...] some workup that has been done at [facility]. I received a note from a surgical evaluat ion she had at [facility]. She has also had gastroenterology evaluation at [facility] as well, I do not have [...] syndrome. Furthermore, I would suggest to her [facility] provider that he screen and evaluate [...] | | CORE | | | | [place] [address] | | LABORATORY | | | | [...] + + | KARLOS [place] | [address] | [place] [address] | [phone] | | CORE LABORATORY (I) | | [...] | | | | | [place] | | | | | | | [...] | [address] | [place] [address] | [phone] | | CORE LABORATORY (I) | | [...] | | CORE | | | | [address] | | LABORATORY | | | | | | (I) | | + + + + + + + + | Specimen | + + | Blood specimen | | (specimen) | + + + + + + + | Performing | Address | City/State/Zipcode | Phone Number | | Organization | | | | + + + + + | KARLOS BARENY | [address] | [place] [address] | [phone] | | CORE LABORATORY (I) | | [...] | | (I) | | | | [facility].Performed by | | | | | | [...] | [address] | [place] [address] | [phone] | | CORE LABORATORY (I) | | [...] | CORE | | | | [place] [address] | | LABORATORY | | | | [...] + + | KARLOS BARNEY | [address] | [place] [address] | [phone] | | CORE LABORATORY (I) | | [...] | | CORE | | | | [address] | | LABORATORY | | | | [...] + + | KARLOS BARNEY | [address] | [place] [address] | [phone] | | CORE LABORATORY (I) | | [...]
--- OUTSIDE RECORDS SUMMARY | ~2019-02-03 | XMS | Encounter Summary ---
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 Moreover, she says this is an important [...] myself or from any other provider at [facility]. She has violated our contract as set forth in a previous note. She understands this. Moreover, she understands that her chart will be flagged in the [facility] system so that she cannot [...]
--- OUTSIDE RECORDS SUMMARY | ~2019-02-03 | XMS | Encounter Summary ---
Demographics + + + | Address | [address] | | | [place] [address] | + + + | Home Phone [...] [place], | | | | | [place] [address] | | + + + + + Care Team Providers + +------+ + | Care Flight Dynamicist Name | Role | Phone | + [...]
--- OUTSIDE RECORDS SUMMARY | ~2019-02-03 | XMS | Encounter Summary ---
Demographics + + + | Address | [address] | | | [place] [address] | + + + | Home Phone [...] | Author | [facility] | | | and [place] | + + + | Organization | [facility] | | [...] Team Providers + +------+ + | Care Fish Filleter Name | Role | Phone | + [...] (ArnoldaScvitor | | 2015 | | [address] | [address] | prep) | | | | [address] | [address] [place] | | | | | [place] | [address] | | | | | [address] | [phone] | | | | | [phone] | | | +--------+ + + + [...]
--- OUTSIDE RECORDS SUMMARY | ~2019-02-03 | XMS | Encounter Summary ---
Demographics + + + | Address | [address] | | | [place] [address] | + + + | Home Phone [...] + | Author | [facility] | | | and [place] | + + + | Organization | [facility] | | | and [place] [...] Team Providers + +------+ + | Care Dramatic Art Teacher Name | Role | Phone | + +------+ + | Timothy Elmore | PCP | | + +------+ + Reason for Visit + + + | Reason | Comments | + + + | Establish Care | BOARD CERTIFIED ARTS THERAPIST : Lumbar Spine : Referred by PCP [...] | | and other | [place] | [address] | | | | | examinations | [address] | Phone: | | | | | of body | Phone: | [phone] | | | | | structure | [phone] | Fax: | | | | | Procedures | | [phone] | | | | | CSJ-06/29 | | | +--------+--------+ + + + + Encounter Details +--------+---------+ + + + | Date | Type | Department | Care Team | Description | +--------+---------+ + + + | 08/09/ | Office | [facility] | Tapan Bragg | Left foot drop | | 2015 | Visit | [facility] | MD [address] | (Primary Dx) | | | | [address] [facility] | [address] [place], | | | | | [address] [place] | [place] | | | | | [address] | [phone] | | | | | [phone] | | | +--------+---------+ + + + [...]
--- OUTSIDE RECORDS SUMMARY | ~2019-02-03 | XMS | Encounter Summary ---
Demographics + + + | Address | [address] | | | [place] [address] | + + + | Home Phone [...] [place], | | | | | [place] [address] | | + + + + + Care Team Providers + +------+ + | Care Jail Manager Name | Role | Phone | [...] as of this encounter Progress Notes Interface, Body Rolling Machine Tender In - 02/09/2006 5:05 AM PSTCLINIC DATE: [...] seeking drugs at numerous medical centers throughout [facility]. 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 I contacted [facility] and [facility] in [place] (telephone # [phone] and [phone] respectively) to warn them of her potential misuse of medication. Moreover, I am concerned because she has a prescription for MS Contin in hand which she is supposed to fill for June and I wanted to make sure they knew to confiscate that prescription and not have it filled. Lastly, I have spoken with Nelly Hamilton, our clinical social group worker, who has taken the task in hand as far as alerting Social Security and Medicare of potential fraud. Hui Milton M.D. TORI/kiah cc: Doris Maurice [facility] Internal Medicine Miranda García [facility] Internal Medicine Andria Hamilton [facility] Internal Medicine Kait Oneal [facility] Wallace Szymanski M.D. [facility] Internal Medicine 5 :05 AM PSTdocumented in this encounter Plan of Treatment Not on filedocumented as of this encounter Visit Diagnoses Not on filedocumented in this encounter"
--- OUTSIDE RECORDS SUMMARY | ~2019-02-03 | XMS | Encounter Summary ---
Demographics + + + | Address | [address] | | | [place] [address] | + + + | Home Phone [...] [place], | | | | | [place] [address] | | + + + + + Care Team Providers + +------+ + | Care Science Specialist Name | Role | Phone | [...] [id number] | | | | | | [place], [place] | | | | | | [address] | | | | | | [phone] | | | +--------+ + + + [...] OF | [address] | [place] [address] | | | PATHOLOGY | YOKASTA BUTCHER | | | + + + + + documented in this encounter Visit Diagnoses Not on filedocumented in this encounter"
--- OUTSIDE RECORDS SUMMARY | ~2019-02-03 | XMS | Encounter Summary ---
Demographics + + + | Address | [address] | | | [place] [address] | + + + | Home Phone [...] [place], | | | | | [place] [address] | | + + + + + Care Team Providers + +------+ + | Care Merchandise Buyer Name | Role | Phone | + [...] as of this encounter Progress Notes Interface, Aqua Ammonia Operator In - 02/23/2006 5:02 AM PSTCLINIC [...] Resident, Internal Medicine Wallace Szymanski M.D. Construction Estimator, Internal Medicine TORI/JENAE/estrellita d ocumented in this encounter Plan of Treatment Not on filedocumented as of this encounter Visit Diagnoses Not on filedocumented in this encounter"
--- OUTSIDE RECORDS SUMMARY | ~2019-02-03 | XMS | Encounter Summary ---
Demographics + + + | Address | [address] | | | [place] [address] | + + + | Home Phone [...] [place], | | | | | [place] [address] | | + + + + + Care Team Providers + +------+ + | Care Maintenance Of Way Foreman Name | Role | Phone | [...] of this encounter Progress Notes Interface, Strategic Communications Specialist In - 02/23/2006 5:02 AM PSTCLINIC DATE: [...] C: 01/10/1998 ds cc: Wallace Szymanski M.D. Furnace Tender, Internal Medicine Hui Milton M.D. Resident, Internal Medicine 07 5:02 AM PSTdocumented in this encounter Plan of Treatment Not on filedocumented as of this encounter Visit Diagnoses Not on filedocumented in this encounter"
--- OUTSIDE RECORDS SUMMARY | ~2019-02-03 | XMS | Encounter Summary ---
Demographics + + + | Address | [address] | | | [place] [address] | + + + | Home Phone [...] [place], | | | | | [place] [address] | | + + + + + Care Team Providers + +------+ + | Care Electrical Maintenance Supervisor Name | Role | Phone | [...] as of this encounter Progress Notes Interface, Digital X Ray Service Engineer In - 02/12/2006 3:04 AM PSTCLINIC DATE: [...]
--- OUTSIDE RECORDS SUMMARY | ~2019-02-03 | XMS | Encounter Summary ---
Demographics + + + | Address | [address] | | | [place] [address] | + + + | Home Phone [...] [place], | | | | | [place] [address] | | + + + + + Care Team Providers + +------+ + | Care Horse Trader Name | Role | Phone | [...] of this encounter Progress Notes Interface, Director Of Labor Relations In - 02/07/2006 1:09 AM PSTCLINIC DATE: [...] or throat itching. She has been taking miqg-ykp-joxwfjm pseudoephedrine, but has not noted much relief. [...] Ms. Evans is planning to move to [place]. We will forward her records as soon [...]
--- OUTSIDE RECORDS SUMMARY | ~2019-02-03 | XMS | Clinical Summary ---
Demographics + + + | Address | [address] | | | [place] [address] | + + + | Home Phone [...] + + + | Author | [facility] | | | and [place] | + + + | Organization | [facility] | | | and [...] Team Providers + +------+ + | Care Harvest Worker Fruit Name | Role | Phone | + [...] +--------+ +---------+--------+ | MEDICARE | MEDICA | [id number] | 03/21/18 | [phone] | | Medica | | | RE | | 96-Pre | 5 | | re | | | PART A | | sent | | | | | | AND B | | | | | | + +--------+ +--------+ +---------+--------+ | MEDICAID [place] | MEDICA | [id number] | | [phone] | | Medica | [...] | 4 | [phone] | [place] [address] | | | anastasiya | | | 7 (Home) | | + +--------+ +--------+ + + Advance Directives + + + + + | Type | Date Recorded | Patient | Explanation | | | | Home Hospice Aide | | + + + + + | Power of | | | | | Logging Specialist | | | | + + + [...]
--- OUTSIDE RECORDS SUMMARY | ~2019-02-03 | XMS | Encounter Summary ---
Demographics + + + | Address | [address] | | | [place] [address] | + + + | Home Phone [...] | Author | [facility] | | | and [place] | + + + | Organization | [facility] | [...] Providers + +------+ + | Care Senior Quality Manager Name | Role | Phone | + +------+ + | Timothy Elmore | PCP | | + +------+ + Reason for Visit + + + | Reason | Comments | + + + | Breast Concern | TECHNOLOGY ASSISTANT CON left breast implant rupture since 08/04/15. [...] | implant | [address] | Surg [address] | | | | | status | [place] | [address] | | | | | | [address] | [address] | | | | | | [place] | [place] | | | | | | [place] | [address] | | | | | | [address] | Phone: | | | | | | Phone: | [phone] | | | | | | [phone] | Fax: | | | | | | | [phone] | +--------+--------+ + + + + Encounter Details +--------+---------+ + + + | Date | Type | Department | Care Team | Description | +--------+---------+ + + + | 09/20/ | Office | [facility] | Wesley Mckeon, | Breast implant | | 2015 | Visit | Surgery [address] | [place] [address] | opal, initial | | | | [address] | [place] | encounter (Primary | | | | [place] | [place] [address] | Dx) | | | | [address] | [phone] | | | | | [phone] | | | +--------+---------+ + + + [...] this encounter Progress Notes Pasquale Granados V, BUSINESS MANAGEMENT MANAGER - 09/21/2015 3:20 PM PDTFormatting of this [...] Alcohol Use: No The patient lives in [place]. Family History: Family History Problem Relation Age [...]
--- OUTSIDE RECORDS SUMMARY | ~2019-02-03 | XMS | Encounter Summary ---
Demographics + + + | Address | [address] | | | [place] [address] | + + + | Home Phone [...] [place], | | | | | [place] [address] | | + + + + + Care Team Providers + +------+ + | Care Dry Mop Maker Name | Role | Phone | [...] of this encounter Progress Notes Interface, Supervisor Shipping Room In - 02/09/2006 5:05 AM PSTCLINIC DATE: [...]
--- OUTSIDE RECORDS SUMMARY | ~2019-02-03 | XMS | Encounter Summary ---
Demographics + + + | Address | [address] | | | [place] [address] | + + + | Home Phone [...] [place], | | | | | [place] [address] | | + + + + + Care Team Providers + +------+ + | Care Learning Disabilities Specialist Name | Role | Phone | [...] Vazquez Valdez | | | | | [address] | [facility] [place] | | | | | Loop Mailcode: | [address] | | | | | [id number] Outpatient | [phone] | | | | | Clinic Building | | | | | | [place], [place] | | | | | | [address] | | | | | | [phone] | | | +--------+ + + + [...] | + +---------+ + + | [facility] DEPARTMENT | | | | | RADIOLOGY | | | | + +---------+ + + documented in this encounter Visit Diagnoses Not on filedocumented in this encounter"
--- OUTSIDE RECORDS SUMMARY | ~2019-02-03 | XMS | Encounter Summary ---
Demographics + + + | Address | [address] | | | [place] [address] | + + + | Home Phone [...] | Author | [facility] | | | and [place] | + + + | Organization | [facility] | | [...] Team Providers + +------+ + | Care Neon Electrician Name | Role | Phone | [...] | | | | oral mucosa | [address] | [place] | | | | | | [place], [place] | [place] [address] | | | | | | [address] | [place], [place] | | | | | | Phone: | [address] Phone: | | | | | | [phone] | [phone] | | | | | | Fax: | Fax: | | | | | | [phone] | [phone] | +--------+--------+ + + + + Encounter Details +--------+---------+ + + + | Date | Type | Department | Care Team | Description | +--------+---------+ + + + | 12/07/ | Office | [facility] | Jamir Griffith, | Oral lesion (Primary | | 2016 | Visit | [facility] [address]30 | MD 1330 | Dx); Tinnitus, | | | | Brutusdorothy [address] [place] | CHARLES VALDEZ [place] | bilateral; | | | | [address] [place] | [address] [place] [address] | Hoarseness; ETD | | | | [phone] | (eustachian tube | | | | [...] that she had thrush earlier in the [facility], tom related to use of prolonged prednisone. [...] regarding hearing loss. I spent 50 minutes kmof-il-yvwq with Litzy Evans today; greater than 50% [...]
--- OUTSIDE RECORDS SUMMARY | ~2019-02-03 | XMS | Encounter Summary ---
Demographics + + + | Address | [address] | | | [place] [address] | + + + | Home Phone [...] [place], | | | | | [place] [address] | | + + + + + Care Team Providers + +------+ + | Care Still Operator Brandy Name | Role | Phone | + [...] as of this encounter Progress Notes Interface, Crossing Flagman In - 02/21/2006 3:06 AM PSTCLINIC DATE: [...] M.D. Resident, Internal Medicine Wallace Szymanski M.D. Pilot Instructor, Internal Medicine OTRI/niles d ocumented in this encounter Plan of Treatment Not on filedocumented as of this encounter Visit Diagnoses Not on filedocumented in this encounter"
--- OUTSIDE RECORDS SUMMARY | ~2019-02-03 | XMS | Encounter Summary ---
Demographics + + + | Address | [address] | | | [place] [address] | + + + | Home Phone | | + + + | Preferred Language | Unknown | + + + | Marital Status | Single | + + + | Nondenominational Affiliation | Unknown | + + + | Race | Unknown | + + + | Ethnic Group | Unknown | + + + Author + + + | Author | [facility] | | | and [place] | + + + | Organization | [facility] | | [...] Team Providers + +------+ + | Care Biomedical Engineering Aide Name | Role | Phone | [...] limb, left | [address] | [address] | | | | | Procedures | [place] | Phone: | | | | | MRI Knee | [address] | [phone] | | | | | Left wo | Phone: | Fax: | | | | | Contrast | [phone] | [phone] | | | | | | Fax: | | | | | | | [phone] | | +--------+--------+ + + + + [...] [place] | | | | | | [address] | [address] Phone: | | | | | | Phone: | [phone] | | | | | | [phone] | Fax: | | | | | | Fax: | [phone] | | | | | | [phone] | | +--------+ + + + + + Encounter Details +--------+---------+ + + + | Date | Type | Department | Care Team | Description | +--------+---------+ + + + | 06/13/ | Office | [facility] | [place], | Nerve entrapment of | | 2016 | Visit | [facility] | MD [address] | lower limb, left | | | | [address] | (Primary Dx) | | | | [address] [place] [address] | [place] | | | | | [address] | [phone] | | | | | [phone] | | | +--------+---------+ + + + [...] NRS Pain Meds 2 OSWESTRY INDEX EQ5D 84301 VAS 60 SURGICAL RISK FACTORS: Diabetes No [...] was spent in face to fa ce drug and alcohol counsellor and advice to patient. This medical record [...]
--- OUTSIDE RECORDS SUMMARY | ~2019-02-03 | XMS | Encounter Summary ---
Demographics + + + | Address | [address] | | | [place] [address] | + + + | Home Phone [...] + + + | Author | [facility] | | | and [place] | + + + | Organization | [facility] | | | and [...] Team Providers + +------+ + | Care Event Decorator And Designer Name | Role | Phone | [...] | | 2015 | | [place] | [address] | level (HCC) | | | | ENDOCRINOLOGY [address] | [address] | | | | | [address] | [place] [address] | | | | | [address] [place] | [phone] | | | | | [address] | | | | | | [phone] | | | +--------+ + + + [...] | CORE | | | | [place] [address] | | LABORATORY | | | | [...] | [address] | [place] [address] | [phone] | | [facility] (I) | | [...] (I) | | | | [place] [address] | | | | + + + [...] [facility] | [place] [address] | [phone] | | CORE LABORATORY (I) | | [...] | | (I) | | | | [facility].Performed by | | | | | | [facility] [address] | | | | | | [place] | | | | | | | [...] | [address] | [place] [address] | [phone] | | CORE LABORATORY (I) | | | | + + + + + documented in this encounter Visit Diagnoses + + | Diagnosis | + + | Low serum cortisol level (HCC) Glucocorticoid deficiency | + + documented in this encounter"
--- OUTSIDE RECORDS SUMMARY | ~2019-02-03 | XMS | Encounter Summary ---
Demographics + + + | Address | [address] | | | [place] [address] | + + + | Home Phone [...] [place], | | | | | [place] [address] | | + + + + + Care Team Providers + +------+ + | Care Balance Wheel Facer Name | Role | Phone | [...] V[place] | | | | | [address] | [facility] [place] | | | | | Loop Mailcode: | [address] | | | | | [id number] Outpatient | [phone] | | | | | Clinic Building | | | | | | [place], [place] | | | | | | [address] | | | | | | [phone] | | | +--------+ + + + [...] | | + +---------+ + + | [facility] DEPARTMENT | | | | | RADIOLOGY | | | | + +---------+ + + documented in this encounter Visit Diagnoses Not on filedocumented in this encounter"
--- OUTSIDE RECORDS SUMMARY | ~2019-02-03 | XMS | Encounter Summary ---
Demographics + + + | Address | [address] | | | [place] [address] | + + + | Home Phone [...] [place], | | | | | [place] [address] | | + + + + + Care Team Providers + +------+ + | Care Marine Biologist Name | Role | Phone | + [...] as of this encounter Progress Notes Interface, Carbon Cutter In - 02/14/2006 5:12 AM PSTCLINIC DATE: [...]
--- OUTSIDE RECORDS SUMMARY | ~2019-02-03 | XMS | Encounter Summary ---
Demographics + + + | Address | [address] | | | [place] [address] | + + + | Home Phone [...] + | Author | [facility] | | | and [place] | + + + | Organization | [facility] | | [...] Team Providers + +------+ + | Care Skatesman Name | Role | Phone | + [...] [place] | | | | | [address] | [phone] | | | | | [phone] | | | +--------+ + + + [...]
--- OUTSIDE RECORDS SUMMARY | ~2019-02-03 | XMS | Encounter Summary ---
Demographics + + + | Address | [address] | | | [place] [address] | + + + | Home Phone [...] [place], | | | | | [place] [address] | | + + + + + Care Team Providers + +------+ + | Care Mattress Stripper Name | Role | Phone | [...] as of this encounter Progress Notes Interface, Highway Painter Helper In - 02/14/2006 5:12 AM PSTINIC DATE: 03/21/1998 INTERNAL MEDICINE CLINIC SUBJECTIVE: Ms. Evans comes in today for follow up of her chronic pain. She has been in a flare for the last two weeks, since her mother became ill after having a fall precipitating a fractured humerus. 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
--- OUTSIDE RECORDS SUMMARY | ~2019-02-03 | XMS | Encounter Summary ---
Demographics + + + | Address | [address] | | | [place] [address] | + + + | Home Phone [...] + + + | Author | [facility] | | | and [place] | + + + | Organization | [facility] | | [...] Team Providers + +------+ + | Care Turnaround Engineer Name | Role | Phone | [...] | unspecified COPD | | | | [address] | [address] | type (HCC) (Primary | | | | [phone] | [phone] | Dx) | +--------+ + + + [...]
--- OUTSIDE RECORDS SUMMARY | ~2019-02-03 | XMS | Encounter Summary ---
Demographics + + + | Address | [address] | | | [place] [address] | + + + | Home Phone | | + + + | Preferred Language | Unknown | + + + | Marital Status | Single | + + + | Confucianism Affiliation | Unknown | + + + | Race | Unknown | + + + | Ethnic Group | Unknown | + + + Author + + + | Author | [facility] | | | and [place] | + + + | Organization | [facility] | | | and [place] [...] Team Providers + +------+ + | Care Dyer And Washer Name | Role | Phone | [...] | | 2014 | | [place] | [address] | Weight loss; | | | | ENDOCRINOLOGY 1330 | [address] | Pancreatic | | | | [address] CHUGN [address] | [place] [address] | insufficiency; | | | | [address] [place] | [phone] | Diarrhea | | | | [address] | | | | | | [phone] | | | +--------+ + + + [...] | CORE | | | | [place] [address] | | LABORATORY | | | | [...] | [address] | [place] [address] | [phone] | | CORE LABORATORY (I) | | [...] [place] | | | | | | [address] | | | | + + + + + + + + | Specimen | + + | Blood specimen | | (specimen) | + + + + + + + | Performing | Address | City/State/Zipcode | Phone Number | | Organization | | | | + + + + + | [place] | [address] | [place] [address] | [phone] | | CORE LABORATORY (I) | | [...] CARIE | | | Fasting | [facility] | | [place] | | | [...] | [address] | [place] [address] | [phone] | | [facility] (I) | | [...] [place] | | | | | | [address] | | | | + + + + + + + + | Specimen | + + | Blood specimen | | (specimen) | + + + + + + + | Performing | Address | City/State/Zipcode | Phone Number | | Organization | | | | + + + + + | [facility] [place] | [address] | [place] [address] | [phone] | | CORE LABORATORY (I) | | [...]
--- OUTSIDE RECORDS SUMMARY | ~2019-02-03 | XMS | Encounter Summary ---
Demographics + + + | Address | [address] | | | [place] [address] | + + + | Home Phone [...] [place], | | | | | [place] [address] | | + + + + + Care Team Providers + +------+ + | Care Solderer Assembly Repair Name | Role | Phone | + [...] of this encounter Progress Notes Interface, Assistant Athletic Trainer In - 02/28/2006 3:08 AM [facility] [place] [address] [place] [address] or November 05, 1997 OLEG PUGH MD [address] [facility] [address] RE: LITZY EVANS MR#: [id number] : [id number] Pugh: I had the pleasure of seeing your patient, Ms. Litzy Evans, at the [facility] today for evaluation of her chronic pain problem. Ms. Evans tells me that she has moved to [place] within the last week and plans to [...] tried a variety of medications including Tegretol, Cayce, Amitriptyline, and other antidepressants. CURRENT MEDICATIONS: 1. [...] has recently ended. She has moved to [place] and is now living with an ex-'s mother. 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 She smokes one pack of [...] also with some difficulty. Romberg is negative. Jsxdjt-jdza-ryayyl is normal. On examination of her chest [...] normal limits." IMPRESSION: 1. Fibromyalgia by 1990 [employer] criteria. 2. Significant psychiatric [...] the 1995 intractable pain act here in [place]. I agreed with Ms. Evans that should [...] hesitate to give me a call at [phone]. Monroe Pruitt M.D. Dam Tender Assistant, Anesthesiology Director of Pain Management Center BRS:mau cc: Kaleb Velásquez M.D. Dam Tender Assistant, Medicine Richie Her, M.D. Dam Tender Assistant, Department of Orthopedics and Rehabilitation Kaleb Velásquez M.D. Dam Tender Assistant, Medicine Richie Her M.D. Dam Tender Assistant, Department of Orthopedics and Rehabilitation documented in this encounter Plan of Treatment Not on filedocumented as of this encounter Visit Diagnoses Not on filedocumented in this encounter
--- OUTSIDE RECORDS SUMMARY | ~2019-02-03 | XMS | Encounter Summary ---
Demographics + + + | Address | [address] | | | [place] [address] | + + + | Home Phone [...] [place], | | | | | [place] [address] | | + + + + + Care Team Providers + +------+ + | Care State Comptroller Name | Role | Phone | + +------+ + PCP | Unavailable | + +------+ + Encounter Details +--------+ + + + + | Date | Type | Department | Care Team | Description | +--------+ + + + + | 09/26/ | Results | | Other, Faculty | | | 1993 | Only | | [phone] | | +--------+ + + + + [...]
--- OUTSIDE RECORDS SUMMARY | ~2019-02-03 | XMS | Encounter Summary ---
Demographics + + + | Address | [address] | | | [place] [address] | + + + | Home Phone [...] + + + | Author | [facility] | | | and [place] | + + + | Organization | [facility] | | | [...] Team Providers + +------+ + | Care Tile Sorter Name | Role | Phone | + [...] | | 2015 | | [place] | [address] | level (HCC) | | | | ENDOCRINOLOGY 1330 | [address] | | | | | [address] CH[address]G [place] | [place] [address] | | | | | [address] [place] | [phone] | | | | | [address] | | | | | | [phone] | | | +--------+ + + + [...] | CORE | | | | [place] [address] | | LABORATORY | | | | [...] | [address] | [place] [address] | [phone] | | [facility] (I) | | [...] (I) | | | | [place] [address] | | | | + + + + + + + + | Specimen | + + | Blood specimen | | (specimen) | + + + + + + + | Performing | Address | City/State/Zipcode | Phone Number | | Organization | | | | + + + + + | [facility] [place] | [address] [facility] | [place] [address] | [phone] | | CORE LABORATORY (I) | | [...] | (I) | | | | [facility].Performed by | | | | | | [facility] [address] | | | | | | [place] | | | | | | | [...] | [address] | [place] [address] | [phone] | | CORE LABORATORY (I) | | | | + + + + + documented in this encounter Visit Diagnoses + + | Diagnosis | + + | Low serum cortisol level (HCC) Glucocorticoid deficiency | + + documented in this encounter"
--- OUTSIDE RECORDS SUMMARY | ~2019-02-03 | XMS | Encounter Summary ---
Demographics + + + | Address | [address] | | | [place] [address] | + + + | Home Phone [...] [place], | | | | | [place] [address] | | + + + + + Care Team Providers + +------+ + | Care Band Tumbler Name | Role | Phone | + [...]
--- OUTSIDE RECORDS SUMMARY | ~2019-02-03 | XMS | Encounter Summary ---
Demographics + + + | Address | [address] | | | [place] [address] | + + + | Home Phone [...] + + + | Author | [facility] | | | and [place] | + + + | Organization | [facility] | | | and [...] Providers + +------+ + | Care Medical Staff Services Coordinator Name | Role | Phone | [...] n | neuritis or | [place] | [address] | | | | | | [address] | [place], | | | | | radiculitis, | [place], | [place] | | | | | unspecified | [place] | Phone: | | | | | [facility] | [address] | [phone] | | | | | | Phone: | Fax: | | | | | | [phone] | [phone] | +--------+--------+ + + + + Encounter Details +--------+ + + + + | Date | Type | Department | Care Team | Description | +--------+ + + + + | 02/24/ | Procedure | [facility] | Brent, | 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 Ankle Clonus: absent. [address] [address] Patient: Litzy Evans Date of : 1955 Sex: Female Age: 59 Years 4 Months Height: 5 feet 5 inch Sensory NCS Nerve / Sites Rec. Site Onset Lat Peak Lat SINGLE STROKE PREFORMER Amp PP Amp Segments Distance Velocity ms [...]
--- OUTSIDE RECORDS SUMMARY | ~2019-02-03 | XMS | Encounter Summary ---
Demographics + + + | Address | [address] | | | [place] [address] | + + + | Home Phone [...] Author | [facility] | | | and [place] | + + + | Organization | [facility] [...] Providers + +------+ + | Care Process Steward Name | Role | Phone | + [...] | | | | | Phone: | [phone] | | | | | | [phone] | Fax: | | | | | | Fax: | [phone] | | | | | | [phone] | | +--------+ + + + + [...] | | and other | [place] | [address] | | | | | examinations | [address] | Phone: | | | | | of body | Phone: | [phone] | | | | | structure | [phone] | Fax: | | | | | Procedures | | [phone] | | | | | CSJ-06/29 | | | +--------+--------+ + + + + Encounter Details +--------+---------+ + + + | Date | Type | Department | Care Team | Description | +--------+---------+ + + + | 05/08/ | [facility] [place] [facility] | Tapan Bragg | Lumbar stenosis | | 2016 | Visit | [facility] | MD [address] | (Primary Dx) | | | | [address] [facility] | [facility] [address], | | | | | [address] [place] | [place] [address] | | | | | [address] | [phone] | | | | | [phone] | | | +--------+---------+ + + + [...] for MY CHART at the front desk coordinator. Just ask the staff there to help [...] for MY CHART at the front desk coordinator. Just ask the staff there to help [...]
--- OUTSIDE RECORDS SUMMARY | ~2019-02-03 | XMS | Encounter Summary ---
Demographics + + + | Address | [address] | | | [place] [address] | + + + | Home Phone [...] [place], | | | | | [place] [address] | | + + + + + Care Team Providers + +------+ + | Care Personal Financial Representative Name | Role | Phone | [...] Clinic | | | | | | [facility], [address] | | | | | | [place], [place] | | | | | | [address] | | | | | | [phone] | | | +--------+ + + + [...] as of this encounter Progress Notes Interface, Knitting Machine Fixer In - 06/01/2006 3:00 AM PDT CLINIC [...] in the Pain Clinic. Faisal Grijalva M.D. Building Construction Engineer, Neurology JQ/wtgarfield documented in this encounter Plan of Treatment Not on filedocumented as of this encounter Visit Diagnoses Not on filedocumented in this encounter"
--- OUTSIDE RECORDS SUMMARY | ~2019-02-03 | XMS | Encounter Summary ---
Demographics + + + | Address | [address] | | | [place] [address] | + + + | Home Phone [...] [place], | | | | | [place] [address] | | + + + + + Care Team Providers + +------+ + | Care Envelope Fold Operator Name | Role | Phone | + +------+ + PCP | Unavailable | + +------+ + Encounter Details +--------+ + + + + | Date | Type | Department | Care Team | Description | +--------+ + + + + | 07/24/ | Office | General Internal | Note, Outpatient | Progress Note | | 1994 | Visit-Trans | Medicine [address] | Clinic | | | | merritt | Arthur [facility] | | | | | | Mailcode: L475 | | | | | | Outpatient Clinic | | | | | | [facility], [address] | | | | | | [place], [place] | | | | | | [address] | | | | | | [phone] | | | +--------+ + + + [...] as of this encounter Progress Notes Interface, Envelope Sealer Operator In - 06/05/2006 1:00 AM PDT CLINIC [...] remained quite high including continued attendance of gnosticism and working on sxfcks-esr-oxvck activities. She denies changes in bladder or [...] 2. Bladder dysfunction, resolved. John Mulligan M.D. Java Web Developer, Anesthesiology Director, Pain Management Services PK:bony documented in this encounter Plan of Treatment Not on filedocumented as of this encounter Visit Diagnoses Not on filedocumented in this encounter"
--- OUTSIDE RECORDS SUMMARY | ~2019-02-03 | XMS | Encounter Summary ---
Demographics + + + | Address | [address] | | | [place] [address] | + + + | Home Phone | | + + + | Preferred Language | Unknown | + + + | Marital Status | Single | + + + | Jew Affiliation | Unknown | + + + | Race | Unknown | + + + | Ethnic Group | Unknown | + + + Author + + + | Author | [facility] | | | and [place] | + + + | Organization | [facility] | | | and [...] Team Providers + +------+ + | Care Employment Appeals Examiner Name | Role | Phone | [...] [address] | | | | | [facility] [address] | [place] [address] | | | | | [address] [place] | [phone] | | | | | [address] | | | | | | [phone] | | | +--------+ + + + [...] | CORE | | | | [place] [address] | | LABORATORY | | | | [...] + + | KARL[facility] [place] | [address] | [place] [address] | [phone] | | CORE LABORATORY (I) | | [...] (I) | | | | [place] [address] | | | | + + + + + + + + | Specimen | + + | Blood specimen | | (specimen) | + + + + + + + | Performing | Address | City/State/Zipcode | Phone Number | | Organization | | | | + + + + + | KARL[facility] [place] | [address] | [place] [address] | [phone] | | CORE LABORATORY (I) | | [...] + + | K[place] [place] | [address] | [place] [address] | [phone] | | CORE LABORATORY (I) | | | | + + + + + documented in this encounter Visit Diagnoses + + | Diagnosis | + + | 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
--- OUTSIDE RECORDS SUMMARY | ~2019-02-03 | XMS | Encounter Summary ---
Demographics + + + | Address | [address] | | | [place] [address] | + + + | Home Phone [...] [place], | | | | | [place] [address] | | + + + + + Care Team Providers + +------+ + | Care Electrical Systems Drafter Name | Role | Phone | [...]
--- OUTSIDE RECORDS SUMMARY | ~2019-02-03 | XMS | Clinical Summary ---
Demographics + + + | Address | [address] | | | [place] [address] | + + + | Home Phone [...] | Author | [facility] | | | and [place] | + + + | Organization | [facility] | [...] Providers + +------+ + | Care Commercial Retoucher Name | Role | Phone | + [...] +--------+ +---------+--------+ | MEDICARE | MEDICA | [id number] | 03/21/18 | [phone] | | Medica | | | RE | | 96-Pre | 5 | | re | | | PART A | | sent | | | | | | AND B | | | | | | + +--------+ +--------+ +---------+--------+ | MEDICAID [place] | MEDICA | [id number] | | [phone] | | Medica | [...] | 4 | [phone] | [place] [address] | | | anastasiya | | | 7 (Home) | | + +--------+ +--------+ + + Advance Directives + + + + + | Type | Date Recorded | Patient | Explanation | | | | Farmworker Vegetable | | + + + + + | Power of | | | | | Assisted Living Nursing Director | | | | + + + [...]
--- OUTSIDE RECORDS SUMMARY | ~2019-02-03 | XMS | Encounter Summary ---
Demographics + + + | Address | [address] | | | [place] [address] | + + + | Home Phone [...] | Author | [facility] | | | and [place] | + + + | Organization | [facility] | | | and [place] [...] Team Providers + +------+ + | Care Flow Worker Name | Role | Phone | [...] | | 2014 | | [place] | [address] | Weight loss; | | | | ENDOCRINOLOGY [address] | [address] | Pancreatic | | | | [address] | [place] [address] | insufficiency; | | | | [address] [place] | [phone] | Diarrhea | | | | [address] | | | | | | [phone] | | | +--------+ + + + [...] | CORE | | | | [place] [address] | | LABORATORY | | | | [...] + + | [place] | [address] [facility] | [place] [address] | [phone] | | CORE LABORATORY (I) | | [...] [place] | | | | | | [address] | | | | + + + [...] [facility] | [place] [address] | [phone] | | CORE LABORATORY (I) | | [...] CARIE | | | Fasting | [facility] [place] [address] | | [place] | | | [...] | [address] | [place] [address] | [phone] | | [facility] (I) | | [...] [place] | | | | | | [address] | | | | + + + + + + + + | Specimen | + + | Blood specimen | | (specimen) | + + + + + + + | Performing | Address | City/State/Zipcode | Phone Number | | Organization | | | | + + + + + | [place] | [address] [facility] [facility] | [place] [address] | [phone] | | CORE LABORATORY (I) | | [...]
--- OUTSIDE RECORDS SUMMARY | ~2019-02-03 | XMS | Encounter Summary ---
Demographics + + + | Address | [address] | | | [place] [address] | + + + | Home Phone [...] Author | [facility] | | | and [place] | + + + | Organization | [facility] | | [...] Team Providers + +------+ + | Care Master Brewer Name | Role | Phone | + [...] | 08/09/ | Telephone | [facility] | Tapan Bragg | Appointment (today's | | 2015 | | [facility] | MD [address] | appt) | | | | [address] [facility] | [address] [place], | | | | | [address] [place] | [place] | | | | | [address] | [phone] | | | | | [phone] | | | +--------+ + + + [...]
--- OUTSIDE RECORDS SUMMARY | ~2019-02-03 | XMS | Encounter Summary ---
Demographics + + + | Address | [address] | | | [place] [address] | + + + | Home Phone [...] [place], | | | | | [place] [address] | | + + + + + Care Team Providers + +------+ + | Care Wholesale Manager Name | Role | Phone | [...] of this encounter Progress Notes Interface, Clinical Trial Associate In - 02/28/2006 3:08 AM PST [facility] Account No. PROGRESS RECORD Name Litzy Evans Birthdate 1955 Date Probl Time em FORMAT: PROBLEM NUMBER and TITLE: S=Subjective Number O=Objective A=Analysis P=Plans CLINIC DATE: 11/05/1997 November 05, 1997 OLEG PUGH MD [address] [facility] [address] RE: Litzy EVANS. MR#: [id number] : [id number] [...] November with Dr. Kaleb Velásquez here at [facility]. Therefore, I will send [...] Management Center prior to my arrival at [facility]. She states that she [...] tried a variety of medications including Tegretol, [place], Amitriptyline, and other antidepressants. CURRENT MEDICATIONS: 1. 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 She smokes one pack of [...] also with some difficulty. Romberg is negative. Cecjbz-nwbs-ppkmdq is normal. On examination of her chest [...] normal limits." IMPRESSION: 1. Fibromyalgia by 1990 [place] [employer] criteria. 2. Significant psychiatric [...] her care from Internal Medicine here at [facility], would be for her [...] establish care with Dr. Velásquez here at [facility], I would be happy to discuss her care with him at that point. In the meantime, I have nothing additional or specific to offer for Ms. Evans' care. Thank you very much for your referral of Ms. Evans to the Pain Management Center here at [facility]. If you have any questions or concerns, please do not hesitate to give me a call at [phone]. Monroe Pruitt M.D. Vice Provost, Anesthesiology Director of Pain Management Center BRS:mau cc: Kaleb Velásquez M.D. Vice Provost, Medicine Richie Her M.D. Vice Provost, Department of Orthopedics and Rehabilitation nterface, Clinical Trial Associate In - 02/28/2006 3:08 AM PSTCLINIC DATE: 11/05/97 PHONE CALL: Litzy called today requesting more Vicodin. She wanted it called to [facility]. I spoke with Dr. Her in regard to this and he declined the request. I called the patient at 16:15 and left a message to that effect. The phone number is [phone]. Lindsay Romeo R.N. Orthopedics HALLIE/emily P cc: documente d in this encounter Plan of Treatment Not on filedocumented as of this encounter Visit Diagnoses Not on filedocumented in this encounter
--- OUTSIDE RECORDS SUMMARY | ~2019-02-03 | XMS | Encounter Summary ---
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 Moreover, she says this is an important [...] myself or from any other provider at [facility]. She has violated our contract as set forth in a previous note. She understands this. Moreover, she understands that her chart will be flagged in the [facility] system so that she cannot [...]
--- OUTSIDE RECORDS SUMMARY | ~2019-02-03 | XMS | Encounter Summary ---
Demographics + + + | Address | [address] | | | [place] [address] | + + + | Home Phone [...] [place], | | | | | [place] [address] | | + + + + + Care Team Providers + +------+ + | Care Keyboard Instrument Repairer Name | Role | Phone | [...] as of this encounter Progress Notes Interface, Lining Layer In - 02/09/2006 5:05 AM PSTCLINIC DATE: [...] at numerous medical centers throughout [facility]. 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 pharmacy to have a warning screen appear, at least within [facility]. I contacted [facility] and [facility] in [place] (telephone # [phone] and [phone] respectively) to warn them of her potential misuse of medication. Moreover, I am concerned because she has a prescription for MS Contin in hand which she is supposed to fill for June and I wanted to make sure they knew to confiscate that prescription and not have it filled. Lastly, I have spoken with Nelly Hamilton, our clinical social insurance specialist, who has taken the task in hand as far as alerting Social Security and Medicare of potential fraud. Hui Milton M.D. TORI/kiah cc: Doris Maurice [facility] Internal Medicine Miranda García [facility] Internal Medicine Andria Hamilton [facility] Internal Medicine Kait Oneal Patient [facility]oc[facility] Office Wallace Szymanski M.D. [facility] Internal Medicine 5 :05 AM PSTdocumented in this encounter Plan of Treatment Not on filedocumented as of this encounter Visit Diagnoses Not on filedocumented in this encounter"
--- OUTSIDE RECORDS SUMMARY | ~2019-02-03 | XMS | Encounter Summary ---
Demographics + + + | Address | [address] | | | [place] [address] | + + + | Home Phone [...] [place], | | | | | [place] [address] | | + + + + + Care Team Providers + +------+ + | Care Forging Press Setter Up Name | Role | Phone | + [...] as of this encounter Progress Notes Interface, Bail Agent In - 02/23/2006 5:02 AM PSTCLINIC DATE: 01/03/1998 INTERNAL MEDICINE CLINIC PROBLEM LIST: 1. Fibromyalgia. 2. Chronic low back pain. 3. Chronic headaches. 4. Manic depression. CURRENT MEDICATIONS: 1. Zoloft. 2. Trazodone. 3. Premarin. SUBJECTIVE: Ms. Evasn presents today for management of her chronic [...] M.D. Resident, Internal Medicine Wallace Szymanski M.D. Inspector Outside Steam Distribution, Internal Medicine TORI:mau d ocumented in this encounter Plan of Treatment Not on filedocumented as of this encounter Visit Diagnoses Not on filedocumented in this encounter
--- OUTSIDE RECORDS SUMMARY | ~2019-02-03 | XMS | Encounter Summary ---
Demographics + + + | Address | [address] | | | [place] [address] | + + + | Home Phone [...] | Author | [facility] | | | and [place] | + + + | Organization | [facility] | | | and [...] Providers + +------+ + | Care Crew Director Name | Role | Phone | [...] + + | 06/21/ | Telephone | [facility] | Jacklyn, | Referral (Follow up) | | 2016 | | CRANI SPINE JNT | MD [address] | (LT Knee MR (PRMCE) | | | | [address], [address] | -- APPROVED); Other | | | | [address] [place] | [place] [address] | (See comments) | | | | [address] | [phone] | | | | | [phone] | | | +--------+ + + + [...]
--- OUTSIDE RECORDS SUMMARY | ~2019-02-03 | XMS | Encounter Summary ---
Demographics + + + | Address | [address] | | | [place] [address] | + + + | Home Phone [...] | Author | [facility] | | | and [place] | + + + | Organization | [facility] [...] + | Care Steel Rule Die Maker Apprentice Name | Role | Phone | [...] + + | 11/10/ | Clinical | [facility] | | Disorder of bone and | | 2014 | Support | Group [id number] | | cartilage, | | | | [address] [place] | | unspecified | | | | [address] | | | | | | [address] | | | | | | [phone] | | | +--------+ + + + [...] as of this encounter Progress Eunice Shaw, Jewel Oliving Machine Operator - 11/10/2014 3:21 PM PDTA/P [...]
--- OUTSIDE RECORDS SUMMARY | ~2019-02-03 | XMS | Encounter Summary ---
Demographics + + + | Address | [address] | | | [place] [address] | + + + | Home Phone [...] [place], | | | | | [place] [address] | | + + + + + Care Team Providers + +------+ + | Care Dynamometer Tuner Name | Role | Phone | + +------+ + PCP | Unavailable | + +------+ + Encounter Details +--------+ + + + + | Date | Type | Department | Care Team | Description | +--------+ + + + + | 09/20/ | Office | General Internal | Note, Outpatient | Progress Note | | 1994 | Visit-Trans | Medicine [address] | Clinic | | | | merritt | [facility] | | | | | | Mailcode: L475 | | | | | | Outpatient Clinic | | | | | | [facility], [address] | | | | | | [place], [place] | | | | | | [address] | | | | | | [phone] | | | +--------+ + + + [...] as of this encounter Progress Notes Interface, Dish Machine Operator In - 06/01/2006 3:00 AM PDT CLINIC DATE: 09/20/94 PSYCHIATRY CLINIC: OBSESSIVE-COMPULSIVE DISORDER (OCD) PSYCHIATRIC CLINIC EVALUATION: IDENTIFYING INFORMATION: Ms. Evans is a 39-year-old white female who is self-referred to the OCD Clinic for evaluation of potential obsessive-compulsive disorder symptomatology. 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 Since that time, she has been on Social Security disability. Her boyfriend works in an auto shop that they bought several years ago. She has tried to work in the [employer] shop but is unable to tolerate it [...] Monroy M.D. Resident, Psychiatry Jamir Payan M.D. Fast Food Supervisor, Psychiatry and occurred after her last divorce. 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 Since that time, she has been on Social Security disability. Her boyfriend works in an auto shop that they bought several years ago. She has tried to work in the [employer] shop but is unable to tolerate it [...] interview carrying the recent article from the [facility] on OCD. She easily engages in the [...] Monroy M.D. Resident, Psychiatry Jamir Payan M.D. Fast Food Supervisor, Psychiatry Aaron:bony WOOD:bony C: 10/04/94 shubham documented in this encounter Plan of Treatment Not on filedocumented as of this encounter Visit Diagnoses Not on filedocumented in this encounter
--- OUTSIDE RECORDS SUMMARY | ~2019-02-03 | XMS | Encounter Summary ---
Demographics + + + | Address | [address] | | | [place] [address] | + + + | Home Phone [...] + + | Author | [facility] | | | and [place] | + + + | Organization | [facility] | [...] Team Providers + +------+ + | Care Children'S Counselor Name | Role | Phone | [...] [place] | | | | | [address] | [phone] | | | | | [phone] | | | +--------+ + + + [...]
--- OUTSIDE RECORDS SUMMARY | ~2019-02-03 | XMS | Encounter Summary ---
Demographics + + + | Address | [address] | | | [place] [address] | + + + | Home Phone [...] [place], | | | | | [place] [address] | | + + + + + Care Team Providers + +------+ + | Care Water Engineer Name | Role | Phone | [...] of this encounter Progress Notes Interface, Green Chain Offbearer In - 02/23/2006 5:02 AM PSTCLINIC DATE: [...] C: 01/10/1998 ds cc: Wallace Szymanski M.D. Vice President Quality Assurance, Internal Medicine Hui Milton M.D. Resident, Internal Medicine 07 5:02 AM PSTdocumented in this encounter Plan of Treatment Not on filedocumented as of this encounter Visit Diagnoses Not on filedocumented in this encounter"
--- OUTSIDE RECORDS SUMMARY | ~2019-02-03 | XMS | Encounter Summary ---
Demographics + + + | Address | [address] | | | [place] [address] | + + + | Home Phone [...] | Author | [facility] | | | and [place] | + + + | Organization | [facility] | | [...] Team Providers + +------+ + | Care Real Estate Officer Name | Role | Phone | + +------+ + | Timothy Elmore | PCP | | + +------+ + Encounter Details +--------+ + + + + | Date | Type | Department | Care Team | Description | +--------+ + + + + | 08/04/ | [facility] | [facility] | Neo Pichardo MD | Hypertensive | | 2017 - | Encounter | [facility] | [address] | emergency; Essential | | | | [address] | [place] | hypertension | | 08/07/ | | [place] [address] | [address] | | | 2016 | | [phone] | | | +--------+ + + + [...] were performed which did not suggest ac akutan coronary syndrome. Echocardiogram was performed which showed [...] Specialty: Family Medicine Contact information: [address] [place] [id number] Discharge Medications New Medications Details acetaminophen 325 [...] signed by: Neo Pichardo MD, 08/07/2016 12:33 [facility] documented in this enc ounter Discharge Instructions [...] Mendoza MD - 08/06/2016 8:35 AM PDT [facility] Patient: Oneal Evans : 1955: Age: 60 y.o. MedRec: [id number] PCP: ASHANTI Esteves Admission date: 08/04/2016 Hospital [...] pulmonary edema. Dictated and Signed by: Hang Eavns MD Electronically signed: 08/05/2016 1:46 PM Current [...] Prior to Admission Sig: Patient taking differently PATENT LEATHER SORTER as: Fluoxetine 40 mg Take 2 capsules by mouth daily Take 1 capsule by mouth 2 times daily Medication review performed and electronically signed by Jose Starr, Dry Primer Powder Blender 15:21 Reviewed by Mirna Lyn, PharmD 08/05/2016 16:07 Neo Mendoza MD - 08/05/2016 9:28 AM PDT [facility] Patient: Oneal Evans : 1955: Age: 60 y.o. MedRec: [id number] PCP: ASHANTI Esteves Admission date: 08/04/2016 Hospital [...] This is a preliminary report provided by [employer], CARLIE. A kevin brown report is available at [facility]. CT ABDOMEN AND PELVIS WITH CO NTRAST [...] mg 5 mg Intravenous Q6H PRN Alli oNland an, DO 5 mg at 08/04/16 2322 [...] + | [facility] | [address] | [place] | [phone] | | [facility] | | [address] | | | - LABORATORY | | [...] | mL/min/1.73m2 | [facility]NA | | | [place] | RATE,ESTIMATED | | MEDICAL | | | | mL/min/1.30l2Gscs than | | CENTER - | | [...] [address] | [place] | [phone] | | [facility] | | [address] | | | - LABORATORY | | [...] [address] | [place] | [phone] | | [facility] | | [address] | | | - LABORATORY | | [...] | [facility] | [address] | [place] | [phone] | | [facility] | | [address] | | | - LABORATORY | | [...] [address] | [place] | [phone] | | [facility] | | [address] | | | - LABORATORY | | [...] 0.46 (L) | 0.60 - 1.30 | [facility] | | | | | mg/dL | [facility] | | | | | | MEDICAL | | | | | | CENTER - | | | | | | LABORATORY | | + + + + + + | eGFR if not | >60Comment: GLOMERULAR | >=60 | [facility] | | | | FILTRATION | mL/min/1.73m2 | [facility] | | | [place] | RATE,ESTIMATED | | MEDICAL | | | | mL/min/1.61p4Zbcz than | | CENTER - | | [...] + | [facility] | [address] | [place] | [phone] | | [facility] | | [address] | | | - LABORATORY | | [...] [address] | [place] | [phone] | | [facility] | | [address] | | | - LABORATORY | | [...] | | | FILTRATION | mL/min/1.73m2 | [facility] | | | [place] | RATE,ESTIMATED | | MEDICAL | | | | mL/min/1.38u5Cunm than | | CENTER - | | [...] | | | | | mg/dL | [facility] | | | | | | MEDICAL [...] [address] | [place] | [phone] | | [facility] | | [address] | | | - LABORATORY | | [...] [address] | [place] | [phone] | | [facility] | | [address] | | | - LABORATORY | | [...] 458 | | | [place] Patient Number [id number] Date of Study | | | 08/05/2016 Visit Number [id number] Accession | | | [id number] Referring Physician JAZLYN MORILLO Number | | | Date of 1955 Therapeutic Activities Services Worker | | | [facility] Age 60 year(s) | | | Interpreting ERICK DUKE | | | Tea And Spice Supervisor LEILANI | | | MD ERICK Gender Female Nurse | | | Stress Preventative Maintenance Technician Procedure Type | | | of Study [...] Volume: 55.37 ml | | | EF Lrialboba72% Left | | | Ventricle Diastolic Dimension: [...] Volume: 55.37 ml | | | EF Rgwwijmae76% | | | | | | Left [...] Number 458 | | [place] Patient Number [id number] Date of Study 08/05/2016 Visit Number | | [id number] Referring Physician JAZLYN MORILLO Number | | Date of 1955 Therapeutic Activities Services Worker [facility] Age | | 60 year(s) Interpreting ERICK DUKE | | Tea And Spice Supervisor LEILANI SUAREZ MD Gender Female Nurse [...] LA Volume: 55.37 ml EF | | Qhxplzrlf73% Left Ventricle Diastolic Dimension: 5.52 cm Systolic [...] LA Volume: 55.37 ml | | EF Fdoudqryc44% | | | | Left Ventricle | [...] [address] | [place] | [phone] | | [facility] | | [address] | | | - LABORATORY | | [...] [address] | [place] | [phone] | | [facility] | | [address] | | | - LABORATORY | | [...] [address] | [place] | [phone] | | [facility] | | [address] | | | - LABORATORY | | [...] + | [facility] | [address] | [place] | [phone] | | [facility] | | [address] | | | - LABORATORY | | [...] | | | | | | [employer] | | | | | [...] + + | Performing | Address | City/State/[facility] | Phone Number | | Organization | | | | + + + + + | [facility] | [address] | [place] | [phone] | | [facility] | | [address] | | | - LABORATORY | | [...] mL/min/1.73m2 | [address] | | | [place] | RATE,ESTIMATED | | MEDICAL | | | | mL/min/1.54j4Qqic than | | CENTER - | | [...] [address] | [place] | [phone] | | [facility] | | [address] | | | - LABORATORY | | [...] [address] | [place] | [phone] | | [facility] | | [address] | | | - LABORATORY | | [...] | | | | | | [employer] | | | | | [...] + | [facility] | [address] | [place] | [phone] | | [facility] | | [address] | | | - LABORATORY | | [...] | | | | JAMMIE ALONSO MD ([id number]) | | | | | | on [...] + | [facility] | [address] | [place] | [phone] | | [facility] | | [address] | | | - LABORATORY | | [...] | | | | JAMMIE ALONSO MD ([id number]) | | | | | | on [...] [address] | [place] | [phone] | | [facility] | | [address] | | | - LABORATORY | | [...] [address] | [place] | [phone] | | [facility] | | [address] | | | - LABORATORY | | [...] | | | | | | [employer] | | | | | [...] + | [facility] | [address] | [place] | [phone] | | [facility] | | [address] | | | - LABORATORY | | [...] [address] | [place] | [phone] | | [facility] | | [address] | | | - LABORATORY | | [...] + | [facility] | [address] | [place] | [phone] | | [facility] | | [address] | | | - LABORATORY | | [...] + | [facility] | [address] | [place] | [phone] | | [facility] | | [address] | | | - LABORATORY | | [...] | mL/min/1.73m2 | [facility] | | | [place] | RATE,ESTIMATED | | MEDICAL | | | | mL/min/1.62z8Swut than | | CENTER - | | [...] [address] | [place] | [phone] | | [facility] | | [address] | | | - LABORATORY | | [...] [address] | [place] | [phone] | | [facility] | | [address] | | | - LABORATORY | | [...] | | | | | | | [place] 08/05/16 at 1130, Initial | | | [...] | | | over 4 Hours, ONCE, [place] 08/05/16 | | | | | | [...]
--- OUTSIDE RECORDS SUMMARY | ~2019-02-03 | XMS | Encounter Summary ---
Demographics + + + | Address | [address] | | | [place] [address] | + + + | Home Phone [...] [place], | | | | | [place] [address] | | + + + + + Care Team Providers + +------+ + | Care Rn Unit Manager Name | Role | Phone [...] [address] | | | | | | [place] | | | | | | [address] | | | +--------+ + + + [...] as of this encounter Progress Notes Interface, Assurance Analyst In - 06/14/2006 5:08 AM PDT [address] [address] [facility] January 08, 1994 DARYL ELLIS PH D [facility] [address] [address] RE:Litzy Evans MR:[id number] Ellis: Thank [...] any further information. Sincerely, Faisal Grijalva M.D. Wharfinger Chief, Neurology PIYUSH:sailaja January 09, 1994 documented in this encounter Plan of Treatment Not on filedocumented as of this encounter Visit Diagnoses Not on filedocumented in this encounter"
--- OUTSIDE RECORDS SUMMARY | ~2019-02-03 | XMS | Encounter Summary ---
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 She has been five times and five [...] bowel sounds. No hepatosplenomegaly noted. Rectal deferred. PERINATOLOGY PHYSICIAN EXAMINATION: Deferred. EXTREMITIES: Clear of clubbing, cyanosis, [...] M.D. Resident, Internal Medicine Kaleb Velásquez M.D. Scaffold Setter, Medicine TORI/tesfaye cc: Wallace Szymanski M.D. Scaffold Setter, Internal Medicine Monroe Pruitt M.D. Scaffold Setter, Anesthesiology Director of Pain Management Center cc: documente d in this encounter Plan of Treatment Not on filedocumented as of this encounter Visit Diagnoses Not on filedocumented in this encounter
--- OUTSIDE RECORDS SUMMARY | ~2019-02-03 | XMS | Encounter Summary ---
Demographics + + + | Address | [address] | | | [place] [address] | + + + | Home Phone [...] | Author | [facility] | | | and [place] | + + + | Organization | [facility] | | | and [...] Team Providers + +------+ + | Care Healthcare Facility Administrator Name | Role | Phone | [...] + + | 06/21/ | Telephone | [facility] | [place], | Referral (Follow up) | | 2016 | | CRANI SPINE JNT | [address] | (LT Knee MR (PRMCE) | | | | [address] | -- APPROVED); Other | | | | [address] [place] | [place] [address] | (See comments) | | | | [address] | [phone] | | | | | [phone] | | | +--------+ + + + [...]
--- OUTSIDE RECORDS SUMMARY | ~2019-02-03 | XMS | Encounter Summary ---
Demographics + + + | Address | [address] | | | [place] [address] | + + + | Home Phone [...] Author | [facility] | | | and [place] | + + + | Organization | [facility] | [...] Team Providers + +------+ + | Care Instrumentation And Controls Designer Name | Role | Phone | [...] [address] [place] | | cortisol level ([facility]) | | | | [address] [place] | | | | | | [address] | | | | | | [phone] | | | +--------+ + + + [...] | | Right | | Intramuscular, ONCE, [facility] 12/23/14 | | AM PST | [...]
--- OUTSIDE RECORDS SUMMARY | ~2019-02-03 | XMS | Encounter Summary ---
Demographics + + + | Address | [address] | | | [place] [address] | + + + | Home Phone [...] [place], | | | | | [place] [address] | | + + + + + Care Team Providers + +------+ + | Care Electrical Development Engineer Name | Role | Phone | [...]
--- OUTSIDE RECORDS SUMMARY | ~2019-02-03 | XMS | Encounter Summary ---
Demographics + + + | Address | [address] | | | [place] [address] | + + + | Home Phone [...] | Author | [facility] | | | and [place] | + + + | Organization | [facility] | | [...] Providers + +------+ + | Care Animal Rehabilitator Name | Role | Phone | + [...] | | [address] | [place] [address] | | | | | [address] [place] | [phone] | | | | | [address] | | | | | | [phone] | | | +--------+ + + + [...]
--- OUTSIDE RECORDS SUMMARY | ~2019-02-03 | XMS | Encounter Summary ---
Demographics + + + | Address | [address] | | | [place] [address] | + + + | Home Phone [...] [place], | | | | | [place] [address] | | + + + + + Care Team Providers + +------+ + | Care Account Resolution Specialist Name | Role | Phone | [...] [id number] | | | | | | [place], [place] | | | | | | [address] | | | | | | [phone] | | | +--------+ + + + [...] | + + + + + | [facility] | [address] | [place] [address] | | | PATHOLOGY | [address] [...] | + + + + + | [facility] | [address] | [place] [address] | | | PATHOLOGY | [address] [...] | + + + + + | [facility] | [address] | [place] [address] | | | PATHOLOGY | [address] [...] | + + + + + | [facility] | [address] | [place] [address] | | | PATHOLOGY | [address] [...] | + + + + + | [facility] | [address] | [place] [address] | | | PATHOLOGY | [address] [...] | + + + + + | [facility] | [address] | [place] [address] | | | PATHOLOGY | [address] | | | + + + + + documented in this encounter Visit Diagnoses Not on filedocumented in this encounter"
--- OUTSIDE RECORDS SUMMARY | ~2019-02-03 | XMS | Encounter Summary ---
Demographics + + + | Address | [address] | | | [place] [address] | + + + | Home Phone [...] [place], | | | | | [place] [address] | | + + + + + Care Team Providers + +------+ + | Care Wire Wheeler Name | Role | Phone | [...]
--- OUTSIDE RECORDS SUMMARY | ~2019-02-03 | XMS | Encounter Summary ---
Demographics + + + | Address | [address] | | | [place] [address] | + + + | Home Phone [...] [place], | | | | | [place] [address] | | + + + + + Care Team Providers + +------+ + | Care Tooling Mechanic Name | Role | Phone | [...] as of this encounter Progress Notes Interface, Guitar Repairer In - 02/21/2006 3:06 AM PSTCLINIC DATE: [...] M.D. Resident, Internal Medicine Wallace Szymanski M.D. Material Dispatcher, Internal Medicine TORI/niles d ocumented in this encounter Plan of Treatment Not on filedocumented as of this encounter Visit Diagnoses Not on filedocumented in this encounter"
--- OUTSIDE RECORDS SUMMARY | ~2019-02-03 | XMS | Encounter Summary ---
Demographics + + + | Address | [address] | | | [place] [address] | + + + | Home Phone [...] [place], | | | | | [place] [address] | | + + + + + Care Team Providers + +------+ + | Care Printing Machine Mechanic Name | Role | Phone | [...] as of this encounter Progress Notes Interface, Or Manager In - 02/21/2006 3:06 AM PSTCLINIC DATE: [...] M.D. Resident, Internal Medicine Wallace Szymanski M.D. Herd Tester, Internal Medicine TORI/joshua d ocumented in this encounter Plan of Treatment Not on filedocumented as of this encounter Visit Diagnoses Not on filedocumented in this encounter"
--- OUTSIDE RECORDS SUMMARY | ~2019-02-03 | XMS | Encounter Summary ---
Demographics + + + | Address | [address] | | | [place] [address] | + + + | Home Phone [...] [place], | | | | | [place] [address] | | + + + + + Care Team Providers + +------+ + | Care Promotions Executive Producer Name | Role | Phone | [...]
--- OUTSIDE RECORDS SUMMARY | ~2019-02-03 | XMS | Encounter Summary ---
Demographics + + + | Address | [address] | | | [place] [address] | + + + | Home Phone [...] [place], | | | | | [place] [address] | | + + + + + Care Team Providers + +------+ + | Care Medical Consultant Name | Role | Phone | [...] of this encounter Progress Notes Interface, Commercial Sales Representative In - 02/28/2006 3:08 AM PSTCLINIC DATE: [...] recently by a family medicine service in [place], [place]. 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 Richie Her M.D. Delivery Sales Worker, Department of Orthopedics and Rehabilitation DAENLLE/emily P documented in this encounter Plan of Treatment Not on filedocumented as of this encounter Visit Diagnoses Not on filedocumented in this encounter"
--- OUTSIDE RECORDS SUMMARY | ~2019-02-03 | XMS | Encounter Summary ---
Demographics + + + | Address | [address] | | | [place] [address] | + + + | Home Phone [...] [place], | | | | | [place] [address] | | + + + + + [...] | | | [facility], [address] | | | | | | [place], [place] | | | | | | [address] | | | | | | [phone] | | | +--------+ + + + [...] as of this encounter Progress Notes Interface, Motorized Squad Commanding Officer In - 06/03/2006 2:00 AM PDT CLINIC [...] Ms. Evans has not been attending her oriental orthodox on Sundays but continues to go to local oriental orthodox meetings. She denies sedation, and nausea and [...] in her sabianist group. John Mulligan M.D. Fundraising Manager, Anesthesiology Director, Pain Management Services PK:bony cc: CAROLINE YOON MD COMMUNICATIONS DIRECTOR ORTHOPEDICS [facility] documented in this encounter Plan of Treatment Not on filedocumented as of this encounter Visit Diagnoses Not on filedocumented in this encounter
--- OUTSIDE RECORDS SUMMARY | ~2019-02-03 | XMS | Encounter Summary ---
Demographics + + + | Address | [address] | | | [place] [address] | + + + | Home Phone [...] [place], | | | | | [place] [address] | | + + + + + Care Team Providers + +------+ + | Care Materials Mgmt Tech Name | Role | Phone | [...] as of this encounter Progress Notes Interface, Funeral Director In - 02/23/2006 5:02 AM PSTCLINIC DATE: [...] when she read about an [facility] clinic, and presented by self-referral to the [...] medication in September when she moved from [place] to [place] and switched providers. Patient states that since [...] Patient was seen by Dr. Browning in [place], [place], at which time she was given [...] Recommended group therapy. Patient is covered through [facility] and she will investigate possible group therapy at the [facility] system. Patient was seen and interviewed with Dr. Anabelle Garcia. Frederic Koch M.D. Resident, Internal Medicine Anabelle Garcia M.D. Spinning Machine Tender, Psychiatry ELDA/ruby d ocumented in this encounter Plan of Treatment Not on filedocumented as of this encounter Visit Diagnoses Not on filedocumented in this encounter"
--- OUTSIDE RECORDS SUMMARY | ~2019-02-03 | XMS | Encounter Summary ---
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 She has been five times and five [...] bowel sounds. No hepatosplenomegaly noted. Rectal deferred. DEPUTY ASSESSOR EXAMINATION: Deferred. EXTREMITIES: Clear of clubbing, cyanosis, [...] M.D. Resident, Internal Medicine Kaleb Velásquez M.D. Metal Extrusion Supervisor, Medicine TORI/tesfaye cc: Wallace Szymanski M.D. Metal Extrusion Supervisor, Internal Medicine Monroe Pruitt M.D. Metal Extrusion Supervisor, Anesthesiology Director of Pain Management Center cc: documente d in this encounter Plan of Treatment Not on filedocumented as of this encounter Visit Diagnoses Not on filedocumented in this encounter
--- OUTSIDE RECORDS SUMMARY | ~2019-02-03 | XMS | Encounter Summary ---
Demographics + + + | Address | [address] | | | [place] [address] | + + + | Home Phone [...] [place], | | | | | [place] [address] | | + + + + + Care Team Providers + +------+ + | Care Pullman Car Repairer Name | Role | Phone | [...] as of this encounter Progress Notes Interface, Casino Cage Manager In - 02/23/2006 5:02 AM PSTCLINIC [...] ago when she read about an [facility] clinic, and presented by self-referral to the [...] medication in September when she moved from [place] to [place] and switched providers. Patient states that since [...] Patient was seen by Dr. Browning in [place], [place], at which time she was given [...] Recommended group therapy. Patient is covered through [facility] and she will investigate possible group therapy at the [facility] system. Patient was seen and interviewed with Dr. Anabelle Garcia. Frederic Koch M.D. Resident, Internal Medicine Anabelle Garcia M.D. Seed Tester, Psychiatry ELDA/ruby d ocumented in this encounter Plan of Treatment Not on filedocumented as of this encounter Visit Diagnoses Not on filedocumented in this encounter"
--- OUTSIDE RECORDS SUMMARY | ~2019-02-03 | XMS | Encounter Summary ---
Demographics + + + | Address | [address] | | | [place] [address] | + + + | Home Phone [...] [place], | | | | | [place] [address] | | + + + + + Care Team Providers + +------+ + | Care Dialysis Rn Name | Role | Phone | [...] [address] | | | | | | [place] | | | | | | [address] | | | +--------+ + + + [...] as of this encounter Progress Notes Interface, Box Loader In - 06/14/2006 5:08 AM PDT [address] [address] [facility] January 08, 1996 DARYL ELLIS PH D [place] OPERATOR MEDICAL PSYCHOLOGY [address] [address] RE:Litzy Evans MR:[id number] Ellis: Thank [...] any further information. Sincerely, Faisal Grijalva M.D. Public Address System Mechanic, Neurology PIYUSH:sailaja January 09, 1996 documented in this encounter Plan of Treatment Not on filedocumented as of this encounter Visit Diagnoses Not on filedocumented in this encounter"
--- OUTSIDE RECORDS SUMMARY | 2019-02-03 00:08 | XMS ---
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 LLAMAS Security Tattoo Identifier Events No recent Security Events currently on file CRITERIA MET - Group Notification - [facility] - Has Care Guidelines - PDMP - [facility] - 2 Visits in 30 Days CARE PROVIDERS FRANTZ CONLEY Physician Home Health Cna: Medical Current PHONE: Unknown Name [facility] Current PHONE: [phone] LY MACIAS [facility] 11/11/2017-Current PHONE: [phone] Ramos Granados MD PHONE: Unknown DR LY MACIAS [facility] 02/16/2016-Current PHONE: [phone] Guidelines Source: [facility] - [place] Guidelines Date: 08/04/2018 Care Coordination: Receives mental health services with [facility].\T\nbsp; Please contact [facility] with mental health concerns.\T\nbsp; [place]:\T\nbsp; \T\nbsp; [place]:\T\nbsp; [id number]. Care History Medical/Surgical 12/25/2018 [facility] - W RECEIVED INPATIENT -CASE MANAGEMENT REFERRAL - PATIENT NO LONGER HAS A NEBULIZER MACHINE AND LOST IT- [facility] HAS REQUESTED A [facility] REVIEW TO SEE IF PATIENT CAN BE ELIGIBLE FOR ANOTHER NEBULIZER MACHINE COVERED. 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 - FOLLOW UP AFTER PATIENT DISCHARGE-PATIENT WOULD BENEFIT FROM A HOME VISIT. 08/04/2018 [facility] - PATIENT HAS ALL OF HER [facility] - PATIENT HAS PCP DR MACIAS IN [place]. - PATIENT DOES HAVE CASE MANAGEMENT THRU [facility]- PAST WAS LAST SEEN BY CASE MANAGEMENT WEEK OF 07/27/18. 05/13/2017 [facility] Care Recommendation: This patient has had 5 or more Emergency Department visits in the last 12 months. Patient requires education on the scope and purpose of the ED as an acute care provider not a Primary Care Provider and should not be utilized for chronic conditions. If patient returns to ED please contact Community Health WorkerKaylynn at [phone]. These are guidelines and the provider should exercise clinical judgment when providing care. E.D. VISIT COUNT (12 MO.) 6 [facility]O [facility] TOTAL 6 NOTE: Visits indicate total known visits. ED/UCC VISIT TRACKING (12 MO.) 02/03/2019 00:05 [facility] [place] TYPE: Emergency COMPLAINT: - SOB 01/07/2019 09:53 [facility] [place] TYPE: Emergency COMPLAINT: - WEAKNESS DIAGNOSES: - Allergy status to oth drug/meds/biol subst status - Pericardial effusion (noninflammatory) - Allergy status to analgesic agent status - Weakness - Other salvage determiner (current) drug therapy - Anemia, unspecified - Nicotine dependence, unspecified, uncomplicated - Altered mental status, unspecified - Other nonspecific abnormal finding of lung field 12/23/2018 14:07 [facility] [place] TYPE: Emergency [...] - Nicotine dependence, unspecified, uncomplicated - Other salvage determiner (current) drug therapy 03/22/2018 02:02 [facility] TYPE: Emergency COMPLAINT: - MOUTH SWELLING INPATIENT VISIT TRACKING (12 MO.) 01/07/2019 17:48 [facility] TYPE: Medical Surgical COMPLAINT: - PERICARDIL ENFFUSION DIAGNOSES: 0. Pain in left hip 1. Pericardial effusion (noninflammatory) 2. Other pneumonia, unspecified organism 3. Acute respiratory failure with hypoxia 4. Gangrene and necrosis of lung 5. Chronic obstructive pulmonary disease, unspecified 6. Nicotine dependence, cigarettes, uncomplicated 7. Fibromyalgia 8. Rheumatoid arthritis, unspecified 9. Essential (primary) hypertension 10. Irritable bowel syndrome without diarrhea 11. Gastro-esophageal reflux disease without esophagitis 12. Other chronic pain 13. Elevated white blood cell count, unspecified 14. Anemia, unspecified 15. Disorientation, unspecified 16. Dependence on supplemental oxygen 17. Anxiety disorder, unspecified 18. Other disorders of lung 19. Spinal stenosis, cervical region 12/30/2018 07:00 [facility] [place] TYPE: Medical Surgical COMPLAINT: - LEFT HIP FRACTURE DIAGNOSES: - Chronic respiratory failure with hypoxia - Unsp place in [facility] as place - Pleural effusion, not elsewhere classified - Chronic obstructive pulmonary disease, unspecified - Essential (primary) hypertension - Gastro-esophageal reflux disease without esophagitis - Chronic pain syndrome - Major depressive disorder, single episode, unspecified - Allergy status to oth drug/meds/biol subst status - Other salvage determiner (current) drug therapy - Other nonspecific abnormal [...] to oth drug/meds/biol subst status - Other salvage determiner (current) drug therapy - Major depressive disorder, single episode, unspecified - Essential (primary) hypertension - Chronic respiratory failure with hypoxia - 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, left femur, init - prison (current) use of inhaled steroids - Opioid dependence, uncomplicated - [employer] (current) use of inhaled steroids - Abnormal levels of other serum enzymes - Gastro-esophageal reflux disease without esophagitis - Other halfway (current) drug therapy 03/22/2018 02:03 [facility] [place] TYPE: Observation COMPLAINT: - ANGIOEDEMA DIAGNOSES: - Emphysema, unspecified - [employer] (current) use of inhaled steroids - Essential (primary) hypertension - Nicotine dependence, cigarettes, uncomplicated - Fibromyalgia - Unspecified mood [affective] disorder - Rheumatoid arthritis, unspecified - Allergy status to oth drug/meds/biol subst status - Polyneuropathy, unspecified - Angioneurotic edema, initial encounter - Localized swelling, mass and lump, head - [employer] (current) use of opiate analgesic - Other halfway (current) drug therapy [email or web address]
[2019-02-03] MEDS ORDERED: FENTANYL1 EAC4 TD (02:13)
[2019-02-03] MEDS ORDERED: PRILOSEC OTC20 MG PO (02:15)
[2019-02-03] MEDS ORDERED: PROBIOTIC PEAR1 EACH PO (02:16)
[2019-02-03] MEDS ORDERED: METOPROLOL SUC100 MG PO (02:19)
[2019-02-03] MEDS ORDERED: SPIRIVA RESPIMAT4 GM INH (02:20)
[2019-02-03] MEDS ORDERED: FLOMAX0.4 MG PO (02:22)
[2019-02-03] MEDS ORDERED: PIPERACIL-TAZO4.5 G1 IV (02:25)
[2019-02-03] MEDS ORDERED: MELATONIN3 M3 PO (02:28)
[2019-02-03] MEDS ORDERED: SENNA8.6 MG PO (02:30)
[2019-02-03] MEDS ORDERED: ZOFRAN4 MG PO (02:31)
--- NOTE | 2019-02-03 12:52 | EKG ---
[facility] [address] [place] [address] Signed Normal sinus rhythm Possible Left atrial enlargement Borderline ECG When compared with ECG of 23-DEC-2018 15:38, No significant change was found Confirmed by JANET RODRIGUEZ MD ([id number]) on 02/03/2019 12:52:21 PM Electronically Signed By: JANET RODRIGUEZ MD 02/03/19 1252 PATIENT NAME: ONEAL LLAMAS Electrocardiogram DATE OF : 51 PHYSICIAN: JANET RODRIGUEZ MD REPORT #: [id number] REPORT IS CONFIDENTIAL AND NOT TO BE RELEASED WITHOUT AUTHORIZATION
== END 2019-02-03 07:20 | disposition home or self-care (01) ==
LOC: ED 00:04
PROC: 0T9B70Z Drainage of Bladder with Drainage Device, Via Natural or Artificial Opening (ICD-10-PCS; principal; 2019-02-03)
DX: R40.4 Transient alteration of awareness (principal); F17.200 Nicotine dependence, unspecified, uncomplicated; Z88.8 Allergy status to other drugs, medicaments and biological substances; Z88.6 Allergy status to analgesic agent; Z79.899 Other long term (current) drug therapy; W18.30XA Fall on same level, unspecified, initial encounter
CPT/HCPCS: 51701; 71045; 80053; 81001; 84484; 85025; 93005; 93010; 99285-25; G0480; J2310; J7030

== ENCOUNTER 2019-02-14 09:28 | Emergency (ER) | payer MEDICARE, OTHER ==
[~2019-02-14] VITALS: Ht 165.1 cm; Wt 63.5 kg
--- OUTSIDE RECORDS SUMMARY | ~2019-02-14 | XMS | Encounter Summary ---
Demographics + + + | Address | [address] | | | [place] [address] | + + + | Home Phone | | + + + | Preferred Language | Unknown | + + + | Marital Status | Single | + + + | Hoahaoism Affiliation | Unknown | + + + | Race | White | + + + | Ethnic Group | Not or | + + + Author + + + | Author | [facility] | + + + | Organization | [facility] | + + + | Address | Unknown | + + + | Phone | Unavailable | + + + Support + + + + + | Name | Relationship | Address | Phone | + + + + + | Zaida Putnam | ECON | [address] | | | | | [place], | | | | | [place] [address] | | + + + + + Care Team Providers + +------+ + | Care Brush Stainer Name | Role | Phone | + +------+ + PCP | Unavailable | + +------+ + Encounter Details +--------+ + + + + | Date | Type | Department | Care Team | Description | +--------+ + + + + | 10/10/ | ED Progress | [facility] | Report, Emergency | ED Progress Note | | 1998 | | MEDICINE | Services | | | | Note-Transc | | | | | | ribed | | | | +--------+ + + + + Social History + +-------+ +--------+------+ | Tobacco Use | Types | Packs/Day | Years | Date | | | | | Used | | + +-------+ +--------+------+ | Never Assessed | | | | | + +-------+ +--------+------+ + + + | Sex Assigned at | Date Recorded | | | | + + + | Not on file | | + + + + + + + | Job Start Date | Occupation | Industry | + + + + | Not on file | Not on file | Not on file | + + + + + + + + | Travel History | Travel Start | Travel End | + + + + + + | No recent travel history available. | + + documented as of this encounter Plan of Treatment Not on filedocumented as of this encounter Visit Diagnoses Not on filedocumented in this encounter"
--- OUTSIDE RECORDS SUMMARY | ~2019-02-14 | XMS | Encounter Summary ---
Demographics + + + | Address | [address] | | | [place] [address] | + + + | Home Phone | | + + + | Preferred Language | Unknown | + + + | Marital Status | Single | + + + | Adventist Affiliation | Unknown | + + + | Race | Unknown | + + + | Ethnic Group | Unknown | + + + Author + + + | Author | [facility] | | | and [place] | + + + | Organization | [facility] | | | and [place] | + + + | Address | Unknown | + + + | Phone | Unavailable | + + + Support + + +---------+ + | Name | Relationship | Address | Phone | + + +---------+ + | Cesar Alondra | ECON | Unknown | | + + +---------+ + Care Team Providers + +------+ + | Care Buffet Manager Name | Role | Phone | + +------+ + | Timothy Elmore | PCP | | + +------+ + Reason for Visit +---------+ + | Reason | Comments | +---------+ + | Consult | disease of pancreas | +---------+ + Evaluate & Treat (Routine) +--------+--------+ + + + + | Status | Reason | Specialty | Diagnoses / | Referred By | Referred To | | | | | Procedures | Contact | Contact | +--------+--------+ + + + + | Closed | | Internal | Diagnoses | Catarina, | Suvstefania, | | | | Medicine - | Other | ASHANTI Aguirre | MD Tiffany | | | | Endocrinology | specified | [address] | Need updated | | | | , Diabetes & | disease of | [place] | address [place] | | | | Metabolism / | pancreas | [address] | | | | Endocrinology | pancreatic | [place], | | | | | | insufficienc | [place] | | | | | | y | [address] | | | | | | Procedures | Phone: | | | | | | evaluate and | [phone] | | | | | | treat | | | +--------+--------+ + + + + Encounter Details +--------+---------+ + + + | Date | Type | Department | Care Team | Description | +--------+---------+ + + + | 12/14/ | Office | [facility] [place] [facility] | Joe Flores, | Pancreatic | | 2015 | Visit | [place] | [address] | insufficiency | | | | ENDOCRINOLOGY [address] | [address] | (Primary Dx); | | | | [address] | [place] [address] | Diarrhea; Loss of | | | | [address] [place], [place] | [phone] | appetite; Weight | | | | [address] | | loss | | | | [phone] | | | +--------+---------+ + + + Social History + +-------+ +--------+------+ | Tobacco Use | Types | Packs/Day | Years | Date | | | | | Used | | + +-------+ +--------+------+ | Current Every Day | | | | | | Smoker | | | | | + +-------+ +--------+------+ + +---+---+---+ | Smokeless Tobacco: | | | | | Never Used | | | | + +---+---+---+ + + +---------+ + | Alcohol Use | Drinks/Week | oz/Week | Comments | + + +---------+ + | No | 0 Standard drinks | 0.0 | | | | or equivalent | | | + + +---------+ + + + + | Sex Assigned at [...] + + documented as of this encounter Last Filed Vital Signs + + + + + | Vital Sign | Reading | Time Taken | Comments | + + + + + | Blood Pressure | 120/70 | 12/14/2014 1:07 PM | | | | | PDT | | + + + + + | Pulse | 80 | 12/14/2014 1:07 PM | | | | | PDT | | + + + + + | Temperature | 36.9 C (98.5 F) | 12/14/2014 1:07 PM | | | | | PDT | | + + + + + | Respiratory Rate | 16 | 12/14/2014 1:07 PM | | | | | PDT | | + + + + + | Oxygen Saturation | - | - | | + + + + + | Inhaled Oxygen | - | - | | | Concentration | | | | + + + + + | Weight | 59 kg (130 lb 2 oz) | 12/14/2014 1:07 PM | | | | | PDT | | + + + + + | Height | 166.4 cm (5' 5.5") | 12/14/2014 1:07 PM | | | | | PDT | | + + + + + | Body Mass Index | 21.32 | 12/14/2014 1:07 PM | | | | | PDT | | + + + + + documented in this encounter Patient Instructions Patient Instructions Joe Flores MD - 12/14/2014 1:46 PM PDTPickup urine collection c ontainer from lab today. Return to lab to get blood drawn on a morning when you can be here before 8 AM, so that you r blood can be drawn at 8 AM. documented in this encounter Progress Notes Joe Flores MD - 12/14/2014 1:29 PM PDTFormatting of this note might be different fro m the original. ENDOCRINOLOGY NEW PATIENT NOTE REASON FOR REFERRAL: Pancreatic insufficiency REFERRING PROVIDER:ASHANTI Esteves CC: Chief Complaint Patient presents with Consult disease of pancreas Weight loss and decreased appetite HPI: The patient is a 59-year-old female who presents endocrine clinic for evaluation of mu ltiple issues. Apparently, the patient has a question of pancreatic insufficiency based on some workup that has been done at [facility]. I received a note from a surgical evaluat ion she had at [facility]. She has also had gastroenterology evaluation at [facility] as well, I do not have those records. According to the surgery note, the patient had dominick ging of her abdomen and pelvis that showed a pancreas that was mildly atrophic with a normal size pancreatic duct. She also apparently had low stool elastase. The previous gastroente rology physician apparently recommended pancreatic enzymes but the patient refused. The mukesh wolf's main symptoms have actually been decreased appetite and weight loss. She states that she has weighed as much as 145 pounds as far back as March of this year, and she now flakito ghs 130 pounds and has been as low as 125 pounds. She also has chronic diarrhea and uses a fair amount of loperamide for this issue. The patient states that she does have abdominal p ain on occasion. The patient is a long-time smoker and continues to smoke. She does not en dorse any palpitations or significant tremor. She does not endorse any excessive tanning of her skin. She does not complain of significant amounts of nausea or vomiting, but can have this on rare occasion. The patient states that her son has type II diabetes mellitus, but there is no other family history of diabetes. She does not believe she's ever had any issue s with elevated blood sugars. Past Medical History Diagnosis Date HTN (hypertension) Past Surgical History Procedure Laterality Date Tonsillectomy Tubal ligation Carpal tunnel release Partial hysterectomy Removal of lump Tarsal tunnel Allergies: Ibuprofen; Nsaids; and Atenolol Outpatient Encounter Prescriptions as of 12/14/2014 Medication Sig Dispense Refill busPIRone (BUSPAR) 30 MG tablet Take 30 mg by mouth 2 times daily. carisoprodol (SOMA) 350 mg tablet Take 350 mg by mouth 3 times daily. estradiol (ESTRACE) 0.1 mg/g vaginal cream Place vaginally. gabapentin (NEURONTIN) 600 MG tablet Take 1,200 mg by mouth 3 times daily. Hyoscyamine Sulfate (HYOSCYAMINE PO) Take by mouth as needed. lisinopril (PRINIVIL, ZESTRIL) 20 mg tablet NIFEdipine (NIFEDICAL XL) 30 mg ER tablet Take 20 mg by mouth Daily. omeprazole (PRILOSEC) 20 mg capsule Take 20 mg by mouth every morning (before breakfast ). pseudoePHEDrine (SUDAFED) 120 mg 12 hr tablet Take 120 mg by mouth every 12 hours. sertraline (ZOLOFT) 100 mg tablet Take 200 mg by mouth Daily. No facility-administered encounter medications on file as of 12/14/2014. History reviewed. No pertinent family history. History Social History Marital Status: Single Spouse Name: N/A Number of Children: N/A Years of Education: N/A Occupational History Not on file. Social History Main Topics Smoking status: Current Every Day Smoker Smokeless tobacco: Never Used Alcohol Use: No Drug Use: Yes Special: Marijuana Sexual Activity: Not on file Other Topics Concern Not on file Social History Narrative ROS: POSITIVE ITEMS ARE IN BOLD. General: weakness, fatigue, weight changes, fever, chills, sweats, insomnia, snoring HEENT: headache, visual changes, nose bleeds or discharge, dental problems, neck pain, sore throat, trouble swallowing Lungs: cough, wheezing, shortness of breath Heart: chest pain, heart racing, sudden collapse or loss of consciousness, shortness of elbert ath, swelling in feet, cramps in calves or thighs with walking Digestive: nausea, vomiting, diarrhea, constipation, changes in bowel habits, abdominal manjinder n, black stools or blood in stools, yellowing of eyes, early feeling of fullness on eating Musculoskeletal: back pain, joint pain, joint swelling, muscle cramps, muscle weakness, sti ffness Skin: rash, itching, dry skin, hair loss or excessive growth, easy bruising, stretch veloz , darkening of skin Hematological: easy bruising or bleeding, history of blood clots Neurological: tremor, weakness, numbness or tingling, seizure, memory problems, difficulty with gait Psychiatric: depression, anxiety Genitourinary: urinary problems, hot flashes, decreased libido Endocrine: increased thirst or urination, intolerance to heat or cold, increased head/hand or shoe size, discharge from breast, breast swelling, loss of height, fractures PE: BP 120/70 mmHg | Pulse 80 | Temp(Src) 36.9 C (98.5 F) (Oral) | Resp 16 | Ht 1.664 m (5' 5.5") | Wt 59.024 kg (130 lb 2 oz) | BMI 21.32 kg/m2 | ? No General: in no acute distress, pleasant Eyes: PERRLA, EOMI. No exophthalmos or periorbital edema ENT: no thyromegaly; thyroid non-tender CV: normal S1, S2, RRR Resp: CTAB GI: soft, NT, ND, +BS MS: no weakness noted, no edema in legs Skin: no obvious skin lesions, no evidence of excessive pigmentation Neuro: AA0x3, no gait difficulty, mild resting tremor Psych: no mood abnormalities Hem/Lymph: no cervical lymphadenopathy LABS: Outside labs from May 2014: TSH 1.1, free T4 0.98, glucose 79 ASSESMENT/PLAN: 1. Pancreatic insufficiency From the limited records I received, it would appear that the pancreatic insufficiency jessa jones referred to was regarding exocrine function of the pancreas since the patient describes a recommendation of pancreatic enzymes. Despite this, the patient refused to take pancreatic enzymes as she states she is unsure how that would help with her appetite. Since there is a report of pancreatic atrophy, I can also evaluate her fasting blood sugar and hemoglobin A1 c to ensure that the patient does not have diabetes mellitus consistent with endocrine pancr eatic insufficiency. If these tests are abnormal, then we can check a fasting C-peptide to look at the actual production of insulin (but will not check if there is no evidence of diab etes mellitus). 2. Diarrhea Patient describes persistent diarrhea requiring daily antidiarrheal medication use. This m ay very well be related to the suspected pancreatic insufficiency, but I would also like to evaluate for the possibility of carcinoid syndrome. We will check a 24-hour urine collectio n for 5 HIAA. Most of her complaints are GI related, and she may need repeat GI evaluatio n, especially if our workup is not consistent with an endocrine cause. 3. Weight loss and decreased appetite Of course this may be related to the other 2 issues mentioned above. She had normal thyroi d function in May, but I would like to repeat thyroid function now to ensure it is stable. Another endocrine cause of weight loss can be adrenal insufficiency, so I would like to ch stacey an 8 a.m. cortisol for further evaluation. If this is abnormal, we will need to repeat the testing and complete an ACTH stimulation test. Lastly, a common reason to have issues w ith decreased appetite and weight loss would be the presence of malignancy. As above, I am testing for the possibility of carcinoid syndrome. Furthermore, I would suggest to her [facility] provider that he screen and evaluate for possible malignancies that may be common i n women of her age and with her risk factors, i.e. smoking (if not done already). If we are unable to identify an endocrine cause for her issues, she will need to continue exploring o ther possible etiologies with her primary care provider. - RTC: To be determined based on results of testing (likely only as needed if all results n egative) -Thank you for allowing me to participate in the care of this patient. Please call with an y questions. - CC: ASHANTI Topete - I spent 60 minutes in visit with the patient today with more than 50% of the visit spent on face to face counseling and coordination of care. -Part of his note was dictated using voice recognition software, which can sometimes lead t o unrecognized typos and/or misspellings. Please contact me if there are any questions rega rding its content. docu mented in this encounter Plan of Treatment Not on filedocumented as of this encounter Results TSH, Reflex Free T4 (12/21/2014 8:01 AM PST) + + + + + + | Component | Value | Ref Range | Performed | Pathologist | | | | | At | Signature | + + + + + + | TSH | 1.53Comment: Performed | 0.45 - 5.10 | [facility] | | | | by [facility] | uIU/mL | [place] | | | | [address] | | CORE | | | | [place] [address] | | LABORATORY | | | | | | (I) | | + + + + + + + + | Specimen | + + | Blood specimen | | (specimen) | + + + + + + + | Performing | Address | City/State/Zipcode | Phone Number | | Organization | | | | + + + + + | [facility] | [address] | [place] [address] | [phone] | | [facility] (I) | | | | + + + + + Hemoglobin A1C (12/21/2014 8:01 AM PST) + + + + + + | Component | Value | Ref Range | Performed | Pathologist | | | | | At | Signature | + + + + + + | Hemoglobin | 5.3Comment: A1c values | 4.0 - 5.6 % | [facility] | | | A1c | of 5.7-6.4% indicate an | | [place] | | | | increased risk for | | [facility] | | | | diabetes mellitus. A1c | | LABORATORY | | | | values of greater than | | (I) | | | | or equal to 6.5% are | | | | | | diagnostic of diabetes | | | | | | mellitus. The ADA | | | | | | recommends A1c values of | | | | | | less than 7% as the | | | | | | goal for diabetic | | | | | | therapy. | | | | + + + + + + | Estimated | 105Comment: The ADA | <=153 mg/dL | [facility] | | | Average | considers an Estimated | | [place] | | | Glucose | Average Glucose (eAG) | | [facility] | | | | result of LT 154 mg/dL | | LABORATORY | | | | to be the goal of | | (I) | | | | diabetic therapy. | | | | | | Estimated Average | | | | | | Glucose is calculated | | | | | | from hemoglobin A1c by | | | | | | use of the ADA | | | | | | recommended | | | | | | formula.Performed by | | | | | | [facility] [address] | | | | | | [address] [place] | | | | | | | | | | + + + + + + + + | Specimen | + + | Blood specimen | | (specimen) | + + + + + + + | Performing | Address | City/State/Zipcode | Phone Number | | Organization | | | | + + + + + | [facility] | [address] | [place] [address] | [phone] | | [facility] (I) | | | | + + + + + Glucose, Fasting (12/21/2014 8:01 AM PST) + + + + + + | Component | Value | Ref Range | Performed | Pathologist | | | | | At | Signature | + + + + + + | Glucose, | 91Comment: Performed by | 65 - 99 mg/dL | [facility] | | | Fasting | [facility] [address] | | [place] | | | | [place] | | CORE | | | | [address] | | LABORATORY | | | | | | (I) | | + + + + + + + + | Specimen | + + | Blood specimen | | (specimen) | + + + + + + + | Performing | Address | City/State/Zipcode | Phone Number | | Organization | | | | + + + + + | [facility] | [address] | [place] [address] | [phone] | | [facility] (I) | | | | + + + + + Cortisol, AM (12/21/2014 8:01 AM PST) + + + + + + | Component | Value | Ref Range | Performed | Pathologist | | | | | At | Signature | + + + + + + | CORTISOL, | 7.6Comment: Cortisol | 6.7 - 22.6 | [facility] | | | AM | Reference range for | ug/dL | [place] | | | | children less than 6 | | [facility] | | | | years of age has not | | LABORATORY | | | | been established at | | (I) | | | | [facility].Performed by | | | | | | [facility] [address] | | | | | | [address] | | | | | | | | | | + + + + + + + + | Specimen | + + | Blood specimen | | (specimen) | + + + + + + + | Performing | Address | City/State/Zipcode | Phone Number | | Organization | | | | + + + + + | [facility] | [address] | [place] [address] | [phone] | | [facility] (I) | | | | + + + + + Creatinine, Urine, 24Hr (12/17/2014 9:30 AM PDT) + + + + + + | Component | Value | Ref Range | Performed | Pathologist | | | | | At | Signature | + + + + + + | Urine Time | 1466Comment: Corrected | min | [facility] | | | | from 1466 min [NA] on | | [place] | | | | 12/17/14 13:52:00 PDT by | | [facility] | | | | FILOMENA GARCIA | | LABORATORY | | | | ASylviaCorrected from 1486 | | (I) | | | | min [NA] on 12/17/14 | | | | | | 13:45:47 PDT by Tyron GARCIA | | | | FILOMENA Suazo | | | | + + + + + + | Urine | 1,950.00 | mL | [facility] | | | Volume | | | [place] | | | | | | CORE | | | | | | LABORATORY | | | | | | (I) | | + + + + + + | Creatinine, | 55 | mg/dL | [facility] | | | Urine | | | [place] | | | | | | C[facility] | | | | | | LABORATORY | | | | | | (I) | | + + + + + + | Creatinine, | 1,072Comment: Performed | 800 - 1,800 | [facility] | | | Urine | by [facility] | mg/24 Hr | [place] | | | (mg/24hr) | [address] [place] | | CORE | | | | [place] [address] | | LABORATORY | | | | | | (I) | | + + + + + + + + | Specimen | + + | Urine specimen | | (specimen) | + + + + + + + | Performing | Address | City/State/Zipcode | Phone Number | | Organization | | | | + + + + + | [facility] | [address] | [place] [address] | [phone] | | [facility] (I) | | | | + + + + + 5 HIAA, Urine, 24Hr, Quant (12/17/2014 9:30 AM PDT) + + + + + + | Component | Value | Ref Range | Performed | Pathologist | | | | | At | Signature | + + + + + + | 5-HIAA, | 7.2Comment: Testing | 0.0 - 10.0 | [facility] | | | Urine, 24hr | Performed: [facility] | mg/24h | [place] | | | | [address], [place] | | CORE | | | | [address] | | LABORATORY | | | | | | (I) | | + + + + + + + + | Specimen | + + | Urine specimen | | (specimen) | + + + + + + + | Performing | Address | City/State/Zipcode | Phone Number | | Organization | | | | + + + + + | [facility] | [address] | [place] [address] | [phone] | | [facility] (I) | | | | + + + + + documented in this encounter Visit Diagnoses + + | Diagnosis | + + | Pancreatic insufficiency - Primary Other specified disease of pancreas | + + | Diarrhea | + + | Loss of appetite Anorexia | + + | Weight loss Loss of weight | + + documented in this encounter
--- OUTSIDE RECORDS SUMMARY | ~2019-02-14 | XMS | Encounter Summary ---
Demographics + + + | Address | [address] | | | [place] [address] | + + + | Home Phone | | + + + | Preferred Language | Unknown | + + + | Marital Status | Single | + + + | Congregational Affiliation | Unknown | + + + | Race | White | + + + | Ethnic Group | Not or | + + + Author + + + | Author | [facility] | + + + | Organization | [facility] | + + + | Address | Unknown | + + + | Phone | Unavailable | + + + Support + + + + + | Name | Relationship | Address | Phone | + + + + + | Zaida Putnam | E[place] | [address] | | | | | [place], | | | | | [place] [address] | | + + + + + Care Team Providers + +------+ + | Care Assistant Merchandise Manager Name | Role | Phone | + +------+ + PCP | Unavailable | + +------+ + Encounter Details +--------+ + + + + | Date | Type | Department | Care Team | Description | +--------+ + + + + | 09/27/ | Results | Registration [id number] | | | | 1994 | Only | [facility] | | | | | | Sunny Mailcode: [id number] | | | | | | [place], [place] | | | | | | [address] | | | | | | [phone] | | | +--------+ + + + [...] Not on filedocumented as of this encounter Procedures + +--------+ + + + | Procedure Name | Priori | Date/Time | Associated Diagnosis | Comments | | | ty | | | | + +--------+ + + + | MISCELLANEOUS | Routin | 09/27/1994 | | Results for this | | CHEMISTRY TESTS | e | 12:07 PM | | procedure are in the | | | | PDT | | results section. | + +--------+ + + + documented in this encounter Results MISCELLANEOUS CHEMISTRY TESTS (09/27/1994 12:07 PM PDT) + + + + + + | Component | Value | Ref Range | Performed | Pathologist | | | | | At | Signature | + + + + + + | TSH | 1.07 | mIU/ML | | | + + + + + + + + | Specimen | + + | | + + + + + + + | Performing | Address | City/State/Zipcode | Phone Number | | Organization | | | | + + + + + | [facility] | [address] | [place] [address] | | | PATHOLOGY | [facility]CHER | | | + + + + + documented in this encounter Visit Diagnoses Not on filedocumented in this encounter"
--- OUTSIDE RECORDS SUMMARY | ~2019-02-14 | XMS | Encounter Summary ---
Demographics + + + | Address | [address] | | | [place] [address] | + + + | Home Phone [...] [place], | | | | | [place] [address] | | + + + + + Care Team Providers + +------+ + | Care Supervisor Picking Crew Name | Role | Phone | + +------+ + PCP | Unavailable | + +------+ + Encounter Details +--------+ + + + + | Date | Type | Department | Care Team | Description | +--------+ + + + + | 01/17/ | Office | [facility] | Note, [...] as of this encounter Progress Notes Interface, Resource Specialist Teacher In - 02/21/2006 3:06 AM PSTCLINIC DATE: 01/17/1998 INTERNAL MEDICINE CLINIC PROBLEM LIST 1. Fibromyalgia. 2. Chronic low back pain. 3. Chronic headache. 4. Manic depression. CURRENT MEDICATIONS 1. Zoloft. 2. Trazodone. 3. Premarin. 4. Clarithromycin as per dentist. 5. Vicodin as per dentist. SUBJECTIVE: Ms. Evans presents today for examination of a lump on her back and another on the second finger on her left hand. The lump on her back has been present for approximately one month and she recently noticed it while bathing. The lump on her finger she thinks is a wart, and she has had this for years. Neither of the two are painful to her. Of note, she does have a history of boils. OBJECTIVE: Blood pressure 118/84, pulse 60, weight 167 pounds. A skin examination reveals a 1-2 mm cyst on the lower back in the midline that moves with traction of the skin so is, therefore, intradermal. No central punctum can be identified. There is no induration to suggest infection. As for the finger, she has a 2 mm hyperkeratotic verrucous wart. ASSESSMENT/PLAN 1. Small cyst on the lower back. Did not recommend further therapy other than hot packs. 2. Small wart on the second finger of the left hand. I wiped the wart with an alcohol swab and pared it down with a sterile blade. Thereafter I froze the wart twice with liquid nitrogen. We will follow up the wart over the next month to see if another freezing is necessary. 3. Ms. Evans should return to clinic in one week to two weeks for follow up of her chronic pain. The interview, physical examination and treatment plan were thoroughly discussed with Dr. Wallace Szymanski. Hui Milton M.D. Resident, Internal Medicine Wallace Szymanski M.D. Residential Property Manager, Internal Medicine TORI/niles d ocumented in this encounter Plan of Treatment Not on filedocumented as of this encounter Visit Diagnoses Not on filedocumented in this encounter"
--- OUTSIDE RECORDS SUMMARY | ~2019-02-14 | XMS | Encounter Summary ---
Demographics + + + | Address | [address] | | | [place] [address] | + + + | Home Phone | | + + + | Preferred Language | Unknown | + + + | Marital Status | Single | + + + | Worship Affiliation | Unknown | + + + | Race | Unknown | + + + | Ethnic Group | Unknown | + + + Author + + + | Author | [facility] | | | and [place] | + + + | Organization | [facility] | | | and [place] [...] Providers + +------+ + | Care Supervisor Slitting And Shipping Name | Role | Phone | + +------+ + | Timothy Elmore | PCP | | + +------+ + Reason for Visit + + + | Reason | Comments | + + + | Imaging Only | DXA | + + + Encounter Details +--------+ + + + + | Date | Type | Department | Care Team | Description | +--------+ + + + + | 11/10/ | Clinical | [facility] | | Disorder of bone and | | 2014 | Support | Group [id number] | | cartilage, | | | | [address] | | unspecified | | | | [address] | | | | | | [address] | | | | | | [phone] | | | +--------+ + + + [...] + documented as of this encounter Progress Eunice Shaw, Gyro Mechanic - 11/10/2014 3:21 PM PDTA/P Spine and Dual Femur DXA sc an performed. Report forwarded to Dr. Natalie Jay for review. Final T-score will be enter ed and report will be scanned into the patient's chart when finalized by MD. docume nted in this encounter Plan of Treatment Not on filedocumented as of this encounter Procedures + +--------+ + + + | Procedure Name | Priori | Date/Time | Associated Diagnosis | Comments | | | ty | | | | + +--------+ + + + | DEXA BONE DENSITY | Routin | 11/10/2014 | Disorder of bone | Results for this | | STUDY WO VERT FX | e | | and cartilage, | procedure are in the | | ASSESSMENT | | | unspecified | results section. | + +--------+ + + + documented in this encounter Results DEXA Bone Density Study LYDIA Cardenas (11/10/2014) + + + + + + | Component | Value | Ref Range | Performed | Pathologist | | | | | At | Signature | + + + + + + | LOWEST | -3.3Comment: AP Spine (Z | | [facility] | | | T-SCORE | score -3.3) | | | | + + + + + + | LOWEST | -3.0Comment: Dual Femur | | [facility] | | | T-SCORE | (Z score 2.1) | | | | + + + + + + + + | Specimen | + + | | + + + + + | Narrative | Performed At | + + + | Original | [facility] | | report mailed to Timothy Elmore on 11/17/2014 | | | | | + + + + +---------+ + + | Performing | Address | City/State/Zipcode | Phone Number | | Organization | | | | + +---------+ + + | [facility] | | | | + +---------+ + + documented in this encounter Visit Diagnoses + + | Diagnosis | + + | Disorder of bone and cartilage, unspecified | + + documented in this encounter"
--- OUTSIDE RECORDS SUMMARY | ~2019-02-14 | XMS | Encounter Summary ---
Demographics + + + | Address | [address] | | | [place] [address] | + + + | Home Phone | | + + + | Preferred Language | Unknown | + + + | Marital Status | Single | + + + | Yarsani Affiliation | Unknown | + + + | Race | White | + + + | Ethnic Group | Not or | + + + Author + + + | Author | [facility] | + + + | Organization | [facility] | + + + | Address | Unknown | + + + | Phone | Unavailable | + + + Support + + + + + | Name | Relationship | Address | Phone | + + + + + | Zaida Putnam | ECON | [address] | | | | | [place], | | | | | [place] [address] | | + + + + + Care Team Providers + +------+ + | Care Rim Fire Priming Operator Name | Role | Phone | + +------+ + PCP | Unavailable | + +------+ + Encounter Details +--------+ + + + + | Date | Type | Department | Care Team | Description | +--------+ + + + + | 09/28/ | Office | General Internal | Note, Outpatient | Progress Note | | 1994 | Visit-Trans | Medicine [address] | Clinic | | | | merritt | [facility] | | | | | | Mailcode: [id number] | | | | | | Outpatient Clinic | | | | | | [facility], [address] | | | | | | [place], [place] | | | | | | [address] | | | | | | [phone] | | | +--------+ + + + [...] as of this encounter Progress Notes Interface, Roving Inspector In - 06/01/2006 3:00 AM PDT CLINIC DATE: 09/28/94 NEUROLOGY CLINIC Litzy returns to the Neurology Clinic complaining of joint stiffness, as well as some electric-like pain in her lower extremities. We saw Litzy last summer surrounding a multitude of complaints. She did have evidence of mild peripheral neuropathy on her nerve conduction studies, but probably more significantly noted on neuropsych eval was a good evidence for somatization disorder. She was referred on to the Pain Management Clinic and she has been treated there primarily. We also did a brain MRI and we reviewed plain films and MRI scans of her LS spine which were completed in the recent past. We have had no other objective evidence of a neurologic illness. Litzy's new complaint is primarily that she feels stiff when she arises and she has severe pain in her Achilles tendon bilaterally. She also reports that after stopping Baclofen recently she developed similar electric-like sensations in her calves. These have since largely resolved with the main complaint being joint and tendon pain. PHYSICAL EXAMINATION: She does have some pain to palpation of the calf muscles and the Achilles tendon, although there is no objective evidence of inflammation; Estrella sign is negative. No cords are palpable either. Her patellar and ankle jerk reflexes are intact and easily elicited. The plantar responses are downgoing. She is able to walk on her heels and her toes without difficulty, although she does have pain at start-up, again primarily in the joints. IMPRESSION: Musculoskeletal pain of the lower extremities with no evidence of any neurologic deterioration since the last visit. Again, it did not appear that Litzy is suffering from significant neurologic illness and I would not recommend any further diagnostic testing at this time from the neurology standpoint. PLAN: Litzy will follow-up with her primary physician in the Pain Clinic. Faisal Grijalva M.D. Desizing Machine Back Tender, Neurology JQ/wtgarfield documented in this encounter Plan of Treatment Not on filedocumented as of this encounter Visit Diagnoses Not on filedocumented in this encounter"
--- OUTSIDE RECORDS SUMMARY | ~2019-02-14 | XMS | Encounter Summary ---
Demographics + + + | Address | [address] | | | [place] [address] | + + + | Home Phone | | + + + | Preferred Language | Unknown | + + + | Marital Status | Single | + + + | Confucianism Affiliation | Unknown | + + + | Race | Unknown | + + + | Ethnic Group | Unknown | + + + Author + + + | Author | [facility] | | | and [place] | + + + | Organization | [facility] | | | and [place] [...] Team Providers + +------+ + | Care Dress Designer Name | Role | Phone | + +------+ + | Timothy Elmore | PCP | | + +------+ + Reason for Referral Diagnostic/Screening (Routine) +--------+--------+ + + + + | Status | Reason | Specialty | Diagnoses / | Referred By | Referred To | | | | | Procedures | Contact | Contact | +--------+--------+ + + + + | Closed | | Radiology | Diagnoses | | Wev Mri | | | | | Nerve | [place], | [address] | | | | | entrapment | MD Jose | [place], | | | | | of lower | [address] | [place] | | | | | limb, left | [address] | [address] | | | | | Procedures | [place] | Phone: | | | | | MRI Knee | [address] | [phone] | | | | | Left wo | Phone: | Fax: | | | | | Contrast | [phone] | [phone] | | | | | | Fax: | | | | | | | [phone] | | +--------+--------+ + + + + Reason for Visit +---------+ + | Reason | Comments | +---------+ + | Consult | Surgical Evaluation LT Peroneal Nerve Damage Referral Tapan | | | Bragg | +---------+ + Evaluate & Treat (Routine) +--------+ + + + + + | Status | Reason | Specialty | Diagnoses / | Referred By | Referred To | | | | | Procedures | Contact | Contact | +--------+ + + + + + | Closed | Specialty | Neurosurgery | Diagnoses | Yemi, | | | | Services | | Lumbar | Tapan Walker | Jacklyn, | | | Required | | stenosis | MD Felisa | MD Jose | | | | | Procedures | [address] | [address] | | | | | CSJ-S | [address] | | | | | 05/09/15 | [place] | [place] | | | | | | [address] | [address] Phone: | | | | | | Phone: | [phone] | | | | | | [phone] | Fax: | | | | | | Fax: | [phone] | | | | | | [phone] | | +--------+ + + + + + Encounter Details +--------+---------+ + + + | Date | Type | Department | Care Team | Description | +--------+---------+ + + + | 06/13/ | Office | [facility] | [place], | Nerve entrapment of | | 2016 | Visit | [facility] | MD [address] | lower limb, left | | | | [address] | (Primary Dx) | | | | [address] | [place] | | | | | [address] | [phone] | | | | | [phone] | | | +--------+---------+ + + + [...] + + + | Blood Pressure | 113/73 | 06/14/2015 4:42 PM | | | | | PDT | | + + + + + | Pulse | 85 | 06/14/2015 4:42 PM | | | | | PDT | | + + + + + | Temperature | - | - | | + + + + + | Respiratory Rate | 16 | 06/14/2015 4:42 PM | | | | | PDT | | + + + + + | Oxygen Saturation | - | - | | + + + + + | Inhaled Oxygen | - | - | | | Concentration | | | | + + + + + | Weight | 62.6 kg (138 lb) | 06/14/2015 4:42 PM | | | | | PDT | | + + + + + | Height | 166.4 cm (5' 5.5") | 06/14/2015 4:42 PM | | | | | PDT | | + + + + + | Body Mass Index | 22.62 | 06/14/2015 4:42 PM | | | | | PDT | | + + + + + documented in this encounter Progress Jose Linton MD - 06/14/2015 4:59 PM PDT Orthopedic Surgical Consultation - initial encounter NARRATIVE SUMMARY Patient with multiple chronic musculoskeletal and back issues. She is seen today for speci fic purpose of assessment of peroneal nerve symptoms. NRS Back Pain 5 NRS Leg Pain 4 NRS Pain Meds 2 OSWESTRY INDEX EQ5D 28036 VAS 60 SURGICAL RISK FACTORS: Diabetes No BMI Body mass index is 22.61 kg/(m^2). 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 S/P LT Knee Replacement 2011 in [place] with Revision surgery [address] Granados. She continues t o have significant pain lateral aspect LT knee. The [facility] EMR was reviewed for relevant information regarding the clinical issues at this en counter. PAST HISTORY Left knee replacement surgery and revision REVIEW OF SYSTEMS Patient's EMR problem list was reviewed and confirmed by interview. There were no symptoms or history to suggest infection, cancer, cauda equina syndrome, p rogressive motor loss,unstable fracture, visceral or vascular disease. PHYSICAL EXAMINATION: Patient is able to sit stand and walk without assistance. Her exami nation is confined primarily to her lower extremities. There is no obvious deformity of eit her knee. Left knee has midline arthrotomy scar. Range of motion is 0-110. Lower extrem ity motor function to very firm resistance testing is normal. Light touch perception is breanna ssly intact over the foot and ankle and very specifically intact over the first webspace and dorsal foot. She is painful to focal palpation along the distal left lateral hamstring at the knee and along the course of the peroneal nerve proximal to the fibular head. ASSESSMENT: - Probable peroneal nerve irritation without motor loss but with positive electrodiagnostic studies. TREATMENT PLAN / RECOMMENDATIONS: - Its unclear whether there is any hopeful surgical remedy - We've advised further imaging to include knee x-rays and MRI scan with metal artifact red ucing software to assess the course of the peroneal nerve. - I had a long talk with the patient regarding my impressions and implications for treatmen t. - Physical findings of intact motor function and light touch perception are reassuring Duration of Encounter: This patient encounter required 25 minutes. This time was spent in acquisition of medical h istory from patient, review of medical records, physical examination, personal review of dominick ging studies and discussion with patient. More than 50% of this time was spent in face to fa ce school guidance counselor and advice to patient. This medical record was created in part by voice-recognition technology. There may be uncor rected errors in wording or syntax. documented in thi s encounter Plan of Treatment + +---------+--------+ + + | Name | Type | Priori | Associated Diagnoses | Order Schedule | | | | ty | | | + +---------+--------+ + + | MRI Knee Left wo | Imaging | Routin | Nerve entrapment | Expected: | | Contrast | | e | of lower limb, left | 06/14/2015, Expires: | | | | | | 06/13/2016 | + +---------+--------+ + + | XR Knee Left 3 Vw | Imaging | Routin | Nerve entrapment | Expected: | | | | e | of lower limb, left | 06/14/2015, Expires: | | | | | | 06/13/2016 | + +---------+--------+ + + documented as of this encounter Visit Diagnoses + + | Diagnosis | + + | Nerve entrapment of lower limb, left - Primary | + + documented in this encounter
--- OUTSIDE RECORDS SUMMARY | ~2019-02-14 | XMS | Encounter Summary ---
Demographics + + + | Address | [address] | | | [place] [address] | + + + | Home Phone | | + + + | Preferred Language | Unknown | + + + | Marital Status | Single | + + + | Jainism Affiliation | Unknown | + + + | Race | Unknown | + + + | Ethnic Group | Unknown | + + + Author + + + | Author | [facility] | | | and [place] | + + + | Organization | [facility] | | | and [place] | [...] Team Providers + +------+ + | Care Handy Man Name | Role | Phone | + [...] | 12/23/ | Clinical | [facility] MD N | | Elevated cortisol | | 2015 | Support | [place] | | level (HCC) (Primary | | | | ENDOCRINOLOGY 1330 | | Dx); Decreased | | | | [address] [place] | | cortisol level ([facility]) | | | | [address] [place] | | | | | | [address] | | | | | | [phone] | | | +--------+ + + + [...] | | Right | | Intramuscular, ONCE, [facility] 12/23/14 | | AM PST | | [...]
--- OUTSIDE RECORDS SUMMARY | ~2019-02-14 | XMS | Encounter Summary ---
Demographics + + + | Address | [address] | | | [place] [address] | + + + | Home Phone | | + + + | Preferred Language | Unknown | + + + | Marital Status | Single | + + + | Uatsdin Affiliation | Unknown | + + + | Race | Unknown | + + + | Ethnic Group | Unknown | + + + Author + + + | Author | [facility] | | | and [place] | + + + | Organization | [facility] | | | and [place] [...] Team Providers + +------+ + | Care Rotary Dryer Operator Name | Role | Phone | + +------+ + | Timothy Elmore | PCP | | + +------+ + Reason for Visit +--------+ + | Reason | Comments | +--------+ + | Other | | +--------+ + Encounter Details +--------+ + + + + | Date | Type | Department | Care Team | Description | +--------+ + + + + | 12/23/ | Telephone | [facility] | Joe Flores, | Other | | 2014 | | [place] | MD [address] | | | | | ENDOCRINOLOGY [address] | [address] | | | | | [address] | [place] [address] | | | | | [address] [place] | [phone] | | | | | [address] | | | | | | [phone] | | | +--------+ + + + [...]
--- OUTSIDE RECORDS SUMMARY | ~2019-02-14 | XMS | Encounter Summary ---
Demographics + + + | Address | [address] | | | [place] [address] | + + + | Home Phone [...] Author + + + | Author | [facility] | + + + | Organization | [facility] | + + + | Address | Unknown | + + + | Phone | Unavailable | + + + Support + + + + + | Name | Relationship | Address | Phone | + + + + + | Zaida Putnam | ECON | [address] | | | | | [place], | | | | | [place] [address] | | + + + + + Care Team Providers + +------+ + | Care Logging Worker Name | Role | Phone | + +------+ + PCP | Unavailable | + +------+ + Encounter Details +--------+ + + + + | Date | Type | Department | Care Team | Description | +--------+ + + + + | 01/09/ | Transcribed | UNKNOWN DEPARTMENT | Dictation, Other | Transcribed | | 1993 | | [address] | | | | | | [address] | | | | | | [place] | | | | | | [address] | | | +--------+ + + + [...] as of this encounter Progress Notes Interface, Steam Hoist Operator In - 06/14/2006 5:08 AM PDT [address] [address] [facility] January 08, 1996 DARYL ELLIS PH D TERMINAL SUPERINTENDENT MEDICAL PSYCHOLOGY [address] [address] RE:Litzy Evans MR:[id number] Ellis: Thank you for seeing Litzy Evans. Ms. Evans has been seen by a tremendous number of physicians over the last year for what I believe to be a somatization disorder. She has a tremendous variety of somatic complaints but normal x-rays, MRI, nerve conduction studies, and neurologic examination. In the couple of weeks that we have been completing the workup, Ms. Evans has called a number of times to ask about test results, to drop off previous x-rays, and to report new complaints. She has also made a number of trips to the emergency room. Despite all this, she remains a pleasant and motivated individual whom I think could do well with your department's approach. I have been horace with her about the diagnostic impression from the outset and agreed to perform a fixed number of diagnostic tests to more certainly rule out the possibility of organic disease before making a referral. I have let her know that a referral is in progress and she is waiting to hear from you. Thank you for your help with this difficult case. Please do not hesitate to let me know if I can provide you with any further information. Sincerely, Faisal Grijalva M.D. Quality Systems Specialist, Neurology PIYUSH:sailaja January 09, 1996 documented in this encounter Plan of Treatment Not on filedocumented as of this encounter Visit Diagnoses Not on filedocumented in this encounter"
--- OUTSIDE RECORDS SUMMARY | ~2019-02-14 | XMS | Clinical Summary ---
Demographics + + + | Address | [address] | | | [place] [address] | + + + | Home Phone | | + + + | Preferred Language | Unknown | + + + | Marital Status | Single | + + + | Episcopal Affiliation | Unknown | + + + [...] [place], | | | | | [place] [address] | | + + + + + Care Team Providers + +------+ + | Care Clinical Data Assistant Name | Role | Phone | + +------+ + PCP | Unavailable | + +------+ + Source Comments MARY is fully live on both [facility] Ambulatory and [facility] InPatient.[facility] Allergies Not on File [...]
--- OUTSIDE RECORDS SUMMARY | ~2019-02-14 | XMS | Encounter Summary ---
Demographics + + + | Address | [address] | | | [place] [address] | + + + | Home Phone | | + + + | Preferred Language | Unknown | + + + | Marital Status | Single | + + + | Jain Affiliation | Unknown | + + + | Race | Unknown | + + + | Ethnic Group | Unknown | + + + Author + + + | Author | [facility] | | | and [place] | + + + | Organization | [facility] | | | and [...] Team Providers + +------+ + | Care Matcher Offbearer Name | Role | Phone | + [...] of appetite; | | 2014 | | [place] | [address] | Weight loss; | | | | ENDOCRINOLOGY [address] | [address] | Pancreatic | | | | [address] | [place] [address] | insufficiency; | | | | [address] [place] | [phone] | Diarrhea | | | | [address] | | | | | | [phone] | | | +--------+ + + + [...] | CORE | | | | [place] [address] | | LABORATORY | | | | [...] + + | [facility] | [address] | [place] [address] | [phone] | | [facility] (I) | | [...] [place] | | | | | | [address] | | | | + + + + + + + + | Specimen | + + | Blood specimen | | (specimen) | + + + + + + + | Performing | Address | City/State/Zipcode | Phone Number | | Organization | | | | + + + + + | [place] | [address] | [place] [address] | [phone] | | [facility] (I) | | [...] CARIE | | | Fasting | [facility] [place] [address] | | [place] | | | [...] | [address] | [place] [address] | [phone] | | [facility] (I) | | [...] [place] | | | | | | [address] | | | | + + + + + + + + | Specimen | + + | Blood specimen | | (specimen) | + + + + + + + | Performing | Address | City/State/Zipcode | Phone Number | | Organization | | | | + + + + + | [facility] [place] | [address] | [place] [address] | [phone] | | [facility] (I) | | [...]
--- OUTSIDE RECORDS SUMMARY | ~2019-02-14 | XMS | Encounter Summary ---
Demographics + + + | Address | [address] | | | [place] [address] | + + + | Home Phone | | + + + | Preferred Language | Unknown | + + + | Marital Status | Single | + + + | Pentecostalism Affiliation | Unknown | + + + | Race | White | + + + | Ethnic Group | Not or | + + + Author + + + | Author | [facility] | + + + | Organization | [facility] | + + + | Address | Unknown | + + + | Phone | Unavailable | + + + Support + + + + + | Name | Relationship | Address | Phone | + + + + + | Zaida Putnam | ECON | [address] | | | | | [place], | | | | | [place] [address] | | + + + + + Care Team Providers + +------+ + | Care Chute Operator Name | Role | Phone | [...] as of this encounter Progress Notes Interface, Unit Secretary In - 02/07/2006 1:09 AM PSTCLINIC DATE: [...] or throat itching. She has been taking xcof-olh-ckwrfvo pseudoephedrine, but has not noted much relief. [...] Ms. Evans is planning to move to [place]. We will forward her records as soon [...]
--- OUTSIDE RECORDS SUMMARY | ~2019-02-14 | XMS | Encounter Summary ---
Demographics + + + | Address | [address] | | | [place] [address] | + + + | Home Phone | | + + + | Preferred Language | Unknown | + + + | Marital Status | Single | + + + | Mu-Ism Affiliation | Unknown | + + + | Race | Unknown | + + + | Ethnic Group | Unknown | + + + Author + + + | Author | [facility] | | | and [place] | + + + | Organization | [facility] | | | and [...] Team Providers + +------+ + | Care Remittance Clerk Name | Role | Phone | [...] limb, left | [address] | [address] | | | | | Procedures | [place] | Phone: | | | | | MRI Knee | [address] | [phone] | | | | | Left wo | Phone: | Fax: | | | | | Contrast | [phone] | [phone] | | | | | | Fax: | | | | | | | [phone] | | +--------+--------+ + + + + [...] [place] | | | | | | [address] | [address] Phone: | | | | | | Phone: | [phone] | | | | | | [phone] | Fax: | | | | | | Fax: | [phone] | | | | | | [phone] | | +--------+ + + + + + Encounter Details +--------+---------+ + + + | Date | Type | Department | Care Team | Description | +--------+---------+ + + + | 06/13/ | Office | [facility] | [place], | Nerve entrapment of | | 2016 | Visit | [facility] | MD [address] | lower limb, left | | | | [address] | (Primary Dx) | | | | [address] | [place] | | | | | [address] | [phone] | | | | | [phone] | | | +--------+---------+ + + + [...] NRS Pain Meds 2 OSWESTRY INDEX EQ5D 20976 VAS 60 SURGICAL RISK FACTORS: Diabetes No BMI Body mass index is 22.61 kg/(m^2). 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 S/P LT Knee Replacement 2011 in [place] with Revision surgery [address] Granados. She continues t o have significant pain lateral aspect LT knee. [facility] EMR was reviewed for relevant information regarding [...] was spent in face to fa ce pastoral counselor and advice to patient. This medical [...]
--- OUTSIDE RECORDS SUMMARY | ~2019-02-14 | XMS | Encounter Summary ---
Demographics + + + | Address | [address] | | | [place] [address] | + + + | Home Phone | | + + + | Preferred Language | Unknown | + + + | Marital Status | Single | + + + | Gnosticist Affiliation | Unknown | + + + | Race | White | + + + | Ethnic Group | Not or | + + + Author + + + | Author | [facility] | + + + | Organization | [facility] | + + + | Address | Unknown | + + + | Phone | Unavailable | + + + Support + + + + + | Name | Relationship | Address | Phone | + + + + + | Zaida Putnam | ECON | [address] | | | | | [place], | | | | | [place] [address] | | + + + + + Care Team Providers + +------+ + | Care Windows Phone Developer Name | Role | Phone | [...] Clinic | | | | | | [facility], [address] | | | | | | [place], [place] | | | | | | [address] | | | | | | [phone] | | | +--------+ + + + [...] as of this encounter Progress Notes Interface, [employer] In - 06/01/2006 3:00 AM PDT CLINIC [...] actively in her social programs including attending lutheran and bible-study sessions. CURRENT MEDICATIONS: Current medications [...] a very low level with her boyfriend's [employer] business. 3. Increasing social function. This seems to be quite stable and she now is able to understand the effect that anger has on her pain. Ms. Evans will no longer be able to be seen the Pain Management Clinic at [facility] because of a change in insurance coverage. She will be cared for at [facility]. She has requested that her Pain Management Clinic progress notes as well as her Orthopedic progress notes from [facility] be sent to that institution. Ms. Evans has done well after arriving receiving a relatively high dose of oral opioids, Vicodin approximately eight per day. She has been titrated off opioids, and her pain level has decreased from a score of 7-8/10 to currently 0-1/10. I believe that her prognosis is quite good in terms of her chronic pain. John Mulligan M.D. Special Systems Technician, Anesthesiology Director, Pain Management Services PK:bony cc: CAROLINE YOON MD METHANE GAS COLLECTION SYSTEM OPERATOR [facility]THOPED[facility] documented in this encounter Plan of Treatment Not on filedocumented as of this encounter Visit Diagnoses Not on filedocumented in this encounter"
--- OUTSIDE RECORDS SUMMARY | ~2019-02-14 | XMS | Encounter Summary ---
Demographics + + + | Address | [address] | | | [place] [address] | + + + | Home Phone | | + + + | Preferred Language | Unknown | + + + | Marital Status | Single | + + + | Advent Affiliation | Unknown | + + + | Race | Unknown | + + + | Ethnic Group | Unknown | + + + Author + + + | Author | [facility] | | | and [place] | + + + | Organization | [facility] | | | and [...] Team Providers + +------+ + | Care Crystal Syrup Maker Name | Role | Phone | + +------+ + | Timothy Elmore | PCP | | + +------+ + Reason for Visit + + + | Reason | Comments | + + + | Appointment | Pain in Left leg -- See MD comment | + + + Encounter Details +--------+ + + + + | Date | Type | Department | Care Team | Description | +--------+ + + + + | 06/15/ | Telephone | [facility] | Jacklyn, | Appointment (Pain in | | 2016 | | [facility] | MD [address] | Left leg -- See | | | | [address] | comment) | | | | [address] [place] [address] | [place] | | | | | [address] | [phone] | | | | | [phone] | | | +--------+ + + + [...]
--- OUTSIDE RECORDS SUMMARY | ~2019-02-14 | XMS | Encounter Summary ---
Demographics + + + | Address | [address] | | | [place] [address] | + + + | Home Phone | | + + + | Preferred Language | Unknown | + + + | Marital Status | Single | + + + | Anabaptist Affiliation | Unknown | + + + [...] [place], | | | | | [place] [address] | | + + + + + Care Team Providers + +------+ + | Care Elevator Service Technician Name | Role | Phone | + +------+ + PCP | Unavailable | + +------+ + Encounter Details +--------+ + + + + | Date | Type | Department | Care Team | Description | +--------+ + + + + | 12/25/ | Office | UNKNOWN DEPARTMENT | Note, Outpatient | Progress Note | | 1993 | Visit-Trans | [address] | Clinic | | | | [address] | [address] | | | | | | [place], [place] | | | | | | [address] | | | +--------+ + + + [...] of this encounter Progress Notes Interface, College Archivist In - 06/14/2006 5:08 AM PDT CLINIC [...] drink alcohol. 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 She is , currently living with a boyfriend/roommate in [place]. She is subsisting on Welfare, she has [...] management of somatization disorder. Faisal Grijalva M.D. Insurance Claims Examiner, Neurology PIYUSH/ifrah cc: LEILANI ACOSTA MD [address] [place] [phone] documented in this encounter Plan of Treatment Not on filedocumented as of this encounter Visit Diagnoses Not on filedocumented in this encounter
--- OUTSIDE RECORDS SUMMARY | ~2019-02-14 | XMS | Encounter Summary ---
Demographics + + + | Address | [address] | | | [place] [address] | + + + | Home Phone | | + + + | Preferred Language | Unknown | + + + | Marital Status | Single | + + + | Religion Affiliation | Unknown | + + + | Race | White | + + + | Ethnic Group | Not or | + + + Author + + + | Author | [facility] | + + + | Organization | [facility] | + + + | Address | Unknown | + + + | Phone | Unavailable | + + + Support + + + + + | Name | Relationship | Address | Phone | + + + + + | Zaida Putnam | ECON | [address] | | | | | [place], | | | | | [place] [address] | | + + + + + Care Team Providers + +------+ + | Care Senior Clinical Data Analyst Name | Role | Phone | + +------+ + PCP | Unavailable | + +------+ + Encounter Details +--------+ + + + + | Date | Type | Department | Care Team | Description | +--------+ + + + + | 05/13/ | ED Progress | [facility] | [...]
--- OUTSIDE RECORDS SUMMARY | ~2019-02-14 | XMS | Encounter Summary ---
Demographics + + + | Address | [address] | | | [place] [address] | + + + | Home Phone | | + + + | Preferred Language | Unknown | + + + | Marital Status | Single | + + + | Tenriism Affiliation | Unknown | + + + | Race | Unknown | + + + | Ethnic Group | Unknown | + + + Author + + + | Author | [facility] | | | and [place] | + + + | Organization | [facility] | | | and [...] Team Providers + +------+ + | Care Belt And Link Shop Supervisor Name | Role | Phone | + +------+ + | Timothy Elmore | PCP | | + +------+ + Reason for Visit + + + | Reason | Comments | + + + | Establish Care | WATCH CASE POLISHER : Lumbar Spine : Referred by PCP Timothy Elmore MD | + + + Evaluate & Treat (Routine) +--------+--------+ + + + + | Status | Reason | Specialty | Diagnoses / | Referred By | Referred To | | | | | Procedures | Contact | Contact | +--------+--------+ + + + + | Closed | | Neurosurgery | Diagnoses | Catarina, | [facility] | | | | | Other | ASHANTI Aguirre | [place] | | | | | nonspecific | [address] | [address] | | | | | (abnormal) | [place] | [address] , | | | | | findings on | [address] | [address] | | | | | radiological | [place], | [place] | | | | | and other | [place] | [address] | | | | | examinations | [address] | Phone: | | | | | of body | Phone: | [phone] | | | | | structure | [phone] | Fax: | | | | | Procedures | | [phone] | | | | | CSJ-06/29 | | | +--------+--------+ + + + + Encounter Details +--------+---------+ + + + | Date | Type | Department | Care Team | Description | +--------+---------+ + + + | 08/09/ | Office | [facility] | Tapan Bragg | Left foot drop | | 2015 | Visit | [facility] | MD [address] | (Primary Dx) | | | | [address] [facility] | [address], | | | | | [address] [place] | [place] | | | | | [address] | [phone] | | | | | [phone] | | | +--------+---------+ + + + [...] + + + | Blood Pressure | 134/82 | 08/09/2014 11:16 AM | | | | | PDT | | + + + + + | Pulse | 62 | 08/09/2014 11:16 AM | | | [...] + + + + | Weight | 59.9 kg (132 lb) | 08/09/2014 11:16 AM | | | | | PDT | | + + + + + | Height | 166.4 cm (5' 5.5") | 08/09/2014 11:16 AM | | | | | PDT | | + + + + + | Body Mass Index | 21.63 | 08/09/2014 11:16 AM | | | | | PDT | | + + + + + documented in this encounter Patient Instructions Patient Instructions Tapan Bragg Jr., MD - 08/09/2014 12:14 PM PDTDATE/TIME: 08/10/19 12:00 PCP: Timohty Elmore MD SOURCE OF REFERRAL: same ACCOMPANIED BY: Self HISTORY: LBP since high school. "Short leg (right) [...] OK. PAST MEDICAL HISTORY: See chart EXAMINATION: Weakness of the left EHL/AT (left -4/5 and right 5/5) . Otherwise, no weakness elsewhere in the LE's. No loss of light touch in the LE's. KJ's and AJ's 0-tr/4, =. Able to tip toe bilaterally but only able to walk on the right heel -not the left heel. Cranial nerve and UE neurological function intact to inspection and by report. IMAGING: The 06-24-14 L-MRI scan did not show any disc herniation or stenosis or instability - and in fact looked like it was from a patient 1/2 her age! The highlights of the scan were shown to the patient. CONSULTATIONS: None IMPRESSION: Partial foot drop on the left side secondary to activity 2 months ago; etiology unclear Chronic LBP x years. PLAN: Non-surgical problem for now It would appear reasonable for the patient to resume the use of her elastic "speed shaper". (Final decision making deferred to her PCP) Favor a neurology consultation with EMG/NCV of the left leg to better help Dx the condition. (Will leave this up to Dr. Elmore's discretion) RTC prn Rationale for this approach explained to the patient. All questions were answered. MEDICATIONS: None through this clinic WORK: Disabled/retired because of LBP/Knee pain/Feet pain Tapan Bragg MD documented in this encounter Progress Notes Tapan Bragg Jr., MD - 08/09/2014 12:00 PM PDTDATE/TIME: 08/09/2014 12:00 PCP: Timothy Elmore MD SOURCE OF REFERRAL: same ACCOMPANIED BY: Self HISTORY: LBP since high school. "Short leg (right) [...] OK. PAST MEDICAL HISTORY: See chart EXAMINATION: Weakness of the left EHL/AT (left -4/5 and right 5/5) . Otherwise, no weakness elsewhere in the LE's. No loss of light touch in the LE's. KJ's and AJ's 0-tr/4, =. Able to tip toe bilaterally but only able to walk on the right heel -not the left heel. Cranial nerve and UE neurological function intact to inspection and by report. IMAGING: The 06-24-14 L-MRI scan did not show any disc herniation or stenosis or instability - and in fact looked like it was from a patient 1/2 her age! The highlights of the scan were shown to the patient. CONSULTATIONS: None IMPRESSION: Partial foot drop on the left side secondary to activity 2 months ago; etiology unclear Chronic LBP x years. PLAN: Non-surgical problem for now It would appear reasonable for the patient to resume the use of her elastic "speed shaper". (Final decision making deferred to her PCP) Favor a neurology consultation with EMG/NCV of the left leg to better help Dx the condition. (Will leave this up to Dr. Elmore's discretion) RTC prn Rationale for this approach explained to the patient. All questions were answered. MEDICATIONS: None through this clinic WORK: Disabled/retired because of LBP/Knee pain/Feet pain Tapan Bragg MD documented in this encounter Plan of Treatment Not on filedocumented as of this encounter Visit Diagnoses + + | Diagnosis | + + | Left foot drop - Primary Other acquired deformity of ankle and foot | + + documented in this encounter
--- OUTSIDE RECORDS SUMMARY | ~2019-02-14 | XMS | Encounter Summary ---
Demographics + + + | Address | [address] | | | [place] [address] | + + + | Home Phone | | + + + | Preferred Language | Unknown | + + + | Marital Status | Single | + + + | Cheondoism Affiliation | Unknown | + + + | Race | Unknown | + + + | Ethnic Group | Unknown | + + + Author + + + | Author | [facility] | | | and [place] | + + + | Organization | [facility] | | | and [place] [...] Team Providers + +------+ + | Care Barrel Tester And Drainer Name | Role | Phone | + +------+ + | Timothy Elmore | PCP | | + +------+ + Reason for Visit + + + | Reason | Comments | + + + | Breast Concern | DIAGNOSTIC CARDIAC SONOGRAPHER CON left breast implant rupture since 08/04/15. saline placed | | | 1996 dr. [place]y [place] | + + + Evaluate & Treat (Routine) +--------+--------+ + + + + | Status | Reason | Specialty | Diagnoses / | Referred By | Referred To | | | | | Procedures | Contact | Contact | +--------+--------+ + + + + | Closed | | Plastic | Diagnoses | Catarina | Alise Osborne | | | | Surgery | Breast | ASHANTI Aguirre | Recon Plastic | | | | | implant | [address] | [place] [address] | | | | | status | [place] | [address] | | | | | | [address] | [address] | | | | | | [place] | [place] | | | | | | [place] | [address] | | | | | | [address] | Phone: | | | | | | Phone: | [phone] | | | | | | [phone] | Fax: | | | | | | | [phone] | +--------+--------+ + + + + Encounter Details +--------+---------+ + + + | Date | Type | Department | Care Team | Description | +--------+---------+ + + + | 09/20/ | Office | [facility] | Wesley Mckeon, | Breast implant | | 2015 | Visit | Surgery [address] | [place] [address] | opal, initial | | | | [address] | [address] | encounter (Primary | | | | [place] | [place] [address] | Dx) | | | | [address] | [phone] | | | | | [phone] | | | +--------+---------+ + + + [...] this encounter Last Filed Vital Signs + +---------+ + + | Vital Sign | Reading | Time Taken | Comments | + +---------+ + + | Blood Pressure | 130/82 | 09/21/2015 12:26 PM | | | | | PDT | | + +---------+ + + | Pulse | 78 | 09/21/2015 12:26 PM | | | | | PDT | | + +---------+ + + | Temperature | - | - | | + +---------+ + + | Respiratory Rate | 16 | 09/21/2015 12:26 PM | | | | | PDT | | + +---------+ + + | Oxygen Saturation | - | - | | + +---------+ + + | Inhaled Oxygen | - | - | | | Concentration | | | | + +---------+ + + | Weight | - | - | | + +---------+ + + | Height | - | - | | + +---------+ + + | Body Mass Index | - | - | | + +---------+ + + documented in this encounter Functional [...] documented as of this encounter Progress Notes Pasquale Granados V, SOCIAL HUMAN SERVICES ASSISTANTS - 09/21/2015 3:20 PM PDTFormatting of this note might be different fr om the original. ROS: Bolded items are positives Constitutional: Recent weight change Fever Fatigue Headaches Eyes: Eyes disease or injury Glasses/Contact Lenses Blurred or double vision ENT: Hearing loss Nose bleeds Mouth sores Bleeding gums Swollen glands in neck Cardiovascular: Heart trouble Chest pains Swelling of feet, ankles or hands History of blood clots (DVT) Respiratory: Frequent coughing Spitting up blood Shortness of breath Asthma or wheezing Gastrointestinal: Loss of appetite Change in bowel movements Nausea or vomiting Frequent diarrhea Painful bowel movements or constipation Blood in stool Stomach pain Genitourinary: Frequent urination Burning or painful urination Blood in urine Incontinence or dribbling Kidney stones Vaginal Discharge Musculoskeletal: Joint stiffness or swelling Weakness or muscles or joints Muscle pain or cramps Back pain Difficulty in walking Skin: Rash or itching Change in moles or skin lesions Varicose veins Breast pain Breast lump Breast discharge Neurological: Frequent or recurring headaches Convulsion or seizures Numbness or tingling sensations Tremors Paralysis Stroke Head injury Psychiatric: Memory loss or confusion Nervousness Depression Hematologic/Lymphatic: Easily bruise or bleed Anemia Phlebitis Enlarged glands Wesley Wheeler M D - 09/21/2015 12:51 PM PDT PLASTIC SURGERY CONSULT NOTE Date of Service: 09/21/15 CC: Breast implant rupture HPI: Litzy Evans is a 59 y.o. female courteously referred by Dr. Elmore for the chief complaint listed above. In brief, the patient states that she had a cosmetic breast augmenta tion performed with silicone implants in a submuscular plane back in the . She suddenl y had them removed and replaced with saline implants in 1996. The patient was doing well un til earlier this year when a screening mammogram identified an area of concern in the periar eolar space on the left. This imaging study noted that both implants appeared intact. The patient around 2 months ago had an excisional biopsy of this lesion. At some point after e surgery, the patient was concern that the implant had ruptured. Follow-up imaging perform ed last month demonstrated rupture of the left breast implant. The patient was asked to cli abby today for an evaluation and to discuss her options for replacing the ruptured implant. She is also noticing some pain around the left chest. She did have a small area of dehiscen ce of the incision from the excisional biopsy, but this is healing by secondary intent. The patient denies any symptoms of infection. She also complains of an animation deformity wit h the implants that is been chronic. The patient is currently using tobacco products. Past Medical History Past Medical History Diagnosis Date HTN (hypertension) Thrush Past Surgical History Past Surgical History Procedure Laterality Date Tonsillectomy Tubal ligation Carpal tunnel release Partial hysterectomy Removal of lump Tarsal tunnel Breast surgery Allergies: Allergies Allergen Reactions Ibuprofen Hives Nsaids Other (See Comments) Gastritis Amitriptyline Other (See Comments) Patient states "can't function at all" Clonidine Itching Atenolol Rash Current Medications: Current outpatient prescriptions: acyclovir (ZOVIRAX) 200 mg capsule, Take by mouth., Disp: , Rfl: busPIRone (BUSPAR) 30 MG tablet, Take 30 mg by mouth 2 times daily., Disp: , Rfl: CALCIUM PO, Take by mouth., Disp: , Rfl: carisoprodol (SOMA) 350 mg tablet, Take 350 mg by mouth., Disp: , Rfl: carisoprodol (SOMA) 350 mg tablet, Take 350 mg by mouth 3 times daily., Disp: , Rfl: escitalopram (LEXAPRO) 10 mg tablet, , Disp: , Rfl: estradiol (ESTRACE) 0.1 mg/g vaginal cream, Place vaginally., Disp: , Rfl: estradiol (ESTRACE) 0.5 mg tablet, Take 0.5 mg by mouth. 1 every 8 days, Disp: , Rfl: fluticasone (FLONASE) 50 mcg/nasal spray, Use 2 sprays in each nostril once a day, Dis p: , Rfl: gabapentin (NEURONTIN) 600 MG tablet, Take 1,200 mg by mouth 3 times daily., Disp: , R fl: Hyoscyamine Sulfate (HYOSCYAMINE PO), Take by mouth as needed., Disp: , Rfl: lidocaine (XYLOCAINE) 2% solution, Take 15 mLs by mouth as needed for Pain. 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 Family History: Family History Problem Relation Age of Onset Cancer Mother lung cancer Review of Systems - see note by MERLIN, reviewed by me today in clinic PHYSICAL EXAM: Filed Vitals: 09/21/15 1226 BP: 130/82 Pulse: 78 Resp: 16 There is no height or weight on file to calculate BSA. There is no weight on file to calculate BMI. General: Awake, alert and oriented. No apparent distress. Appears stated age. Psych: Affect/mood appropriate. Demonstrates appropriate level of insight. HEENT: Pupils equal, round. Extraocular movements are intact. Sclera are anicteric. Pulmonary: Breathing comfortably on room air Breasts: The patient is status post bilateral breast augmentation. The right implant is in tact and in an appropriate position. There is been ptosis of the right breast tissue such t hat the nipple areolar complex, and the majority of the breast parenchyma, sits near the bot chelsie or below the implant on the right. There is grade 3 ptosis of the left breast with evid ence of implant rupture. It is difficult to palpate the implant capsule, but given the stri yaw asymmetry between the 2 sides it is reasonable to conclude that the implant is in fact ruptured on the left. There is a small scar around 2:00 a few senna meters from the areola from her recent excisional biopsy. No masses are noted on palpation. Neurologic: Cranial nerves II-XII are globally intact without focal deficit. Extremities: Warm and well perfused. Assessment/Plan: Litzy is a 59-year-old woman with a history of cosmetic breast augmentation who has experien indigo rupture of her left breast implant. I have explained to the patient that she has number of options to address this issue. There is certainly no harm to the patient by leaving the implant in. I explained to her that the saline contained within the implant has already be en reabsorbed by her bloodstream and will cause her no medical problems. If the patient wer e to want to remedy the asymmetry of her breasts, the simple procedure be to remove the rupt ured implant and replace it with an intact implant. This however would not address the ptos is of the bilateral breast tissue. This would be done through a bilateral mastopexy. The p atient also inquired about exchanging her saline implants for silicone implants. This could certainly be done at this time but would involve additional time in the operating room and additional expense to exchange the right saline implant for a gel implant. I do feel as alissa lagos the risk of doing any of these procedures is quite high as long as the patient is still smoking. The risk of infection, wound healing complications, and ultimately loss of the imp lant is quite high. Performing a breast lift would also be challenging with the patient usi ng tobacco products given the high likelihood for wound healing problems and the chance of n ipple areolar complex loss. I have encouraged the patient to quit using tobacco products be fore proceeding with any surgery. The patient would not want to remove and replace the impl ant without also having a mastopexy. The patient was given a quote for these procedures tojesus collins in clinic and have asked her to contact our clinic when she has quit using tobacco produc ts so that we can schedule her surgery. I would see her back for preop visit 2 weeks before her date of surgery to review the plan. Thank you Dr. Elmore for referring Litzy Evans to the plastic surgery clinic and allow ing me to participate in her care. If I can be of any further assistance please do not hesit ate to contact me. documented in this encounter Plan of Treatment Not on filedocumented as of this encounter Visit Diagnoses + + | Diagnosis | + + | Breast implant rupture, initial encounter - Primary | + + documented in this encounter
--- OUTSIDE RECORDS SUMMARY | ~2019-02-14 | XMS | Encounter Summary ---
Demographics + + + | Address | [address] | | | [place] [address] | + + + | Home Phone | | + + + | Preferred Language | Unknown | + + + | Marital Status | Single | + + + | Rastafari Affiliation | Unknown | + + + | Race | Unknown | + + + | Ethnic Group | Unknown | + + + Author + + + | Author | [facility] | | | and [place] | + + + | Organization | [facility] | | | and [place] [...] Team Providers + +------+ + | Care Manager Instrumentation Name | Role | Phone | + +------+ + | Timothy Elmore | PCP | | + +------+ + Encounter Details +--------+ + + + + | Date | Type | Department | Care Team | Description | +--------+ + + + + | 01/08/ | Transcribed | PULMONARY FUNCTION | Timothy Elmore PA | Chronic obstructive | | 2016 | Orders | [address] | [address] | pulmonary disease, | | | | [place] | [place] | unspecified COPD | | | | [address] | [address] | type (HCC) (Primary | | | | [phone] | [phone] | Dx) | +--------+ + + + [...] | | + +------+--------+ + + | Pulmonary function | PFT | AYANNA | Chronic | 1 Occurrences | | test | | | obstructive | starting 01/09/2016 | | | | | pulmonary disease, | until 01/08/2017 | | | | | unspecified COPD | | | | | | type (HCC) | | + +------+--------+ + + documented as of this encounter Visit Diagnoses + + | Diagnosis | + + | Chronic obstructive pulmonary disease, unspecified COPD type (HCC) - Primary | + + documented in this encounter"
--- OUTSIDE RECORDS SUMMARY | ~2019-02-14 | XMS | Encounter Summary ---
Demographics + + + | Address | [address] | | | [place] [address] | + + + | Home Phone [...] [place], | | | | | [place] [address] | | + + + + + Care Team Providers + +------+ + | Care Rapid Transit Operator Name | Role | Phone | + +------+ + PCP | Unavailable | + +------+ + Encounter Details +--------+ + + + + | Date | Type | Department | Care Team | Description | +--------+ + + + + | 09/26/ | Results | | Other, Faculty | | | 1993 | Only | | [phone] | | +--------+ + + + + [...]
--- OUTSIDE RECORDS SUMMARY | ~2019-02-14 | XMS | Encounter Summary ---
Demographics + + + | Address | [address] | | | [place] [address] | + + + | Home Phone | | + + + | Preferred Language | Unknown | + + + | Marital Status | Single | + + + | Temple Affiliation | Unknown | + + + | Race | Unknown | + + + | Ethnic Group | Unknown | + + + Author + + + | Author | [facility] | | | and [place] | + + + | Organization | [facility] | | | and [place] [...] Team Providers + +------+ + | Care Customer Advisor Specialist Name | Role | Phone | [...] Closed | | Physical | Diagnoses | Catarina, | Brent, | | | | Medicine and | Thoracic or | ASHANTI Aguirre | Jill | | | | Rehabilitatio | lumbosacral | [address] | [address] | | | | n | neuritis or | [place] | [address] | | | | | | [address] | [place], | | | | | radiculitis, | [place], | [place] | | | | | unspecified | [place] | Phone: | | | | | [facility] | [address] | [phone] | | | | | | Phone: | Fax: | | | | | | [phone] | [phone] | +--------+--------+ + + + + Encounter Details +--------+ + + + + | Date | Type | Department | Care Team | Description | +--------+ + + + + | 02/24/ | Procedure | [facility] | Brent, | 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 Ankle Clonus: absent. [address] [address] Patient: Litzy Evans Date of : 1955 Sex: Female Age: 59 Years 4 Months Height: 5 feet 5 inch Sensory NCS Nerve / Sites Rec. Site Onset Lat Peak Lat NATUROPATH Amp PP Amp Segments Distance Velocity ms [...]
--- OUTSIDE RECORDS SUMMARY | ~2019-02-14 | XMS | Encounter Summary ---
Demographics + + + | Address | [address] | | | [place] [address] | + + + | Home Phone [...] [place], | | | | | [place] [address] | | + + + + + Care Team Providers + +------+ + | Care Caul Dresser Name | Role | Phone | + [...] as of this encounter Progress Notes Interface, Staple Processing Machine Operator In - 02/07/2006 1:09 AM PSTCLINIC DATE: 06/20/1998 INTERNAL MEDICINE CLINIC SUBJECTIVE: Ms. 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 Moreover, she says this is an important [...] myself or from any other provider at [facility]. She has violated our contract as set forth in a previous note. She understands this. Moreover, she understands that her chart will be flagged in the [facility] system so that she cannot [...]
--- OUTSIDE RECORDS SUMMARY | ~2019-02-14 | XMS | Encounter Summary ---
Demographics + + + | Address | [address] | | | [place] [address] | + + + | Home Phone [...] [place], | | | | | [place] [address] | | + + + + + Care Team Providers + +------+ + | Care Digital Manager Name | Role | Phone | [...] as of this encounter Progress Notes Interface, Blanket Binder In - 02/09/2006 5:05 AM PSTCLINIC DATE: [...]
--- OUTSIDE RECORDS SUMMARY | ~2019-02-14 | XMS | Encounter Summary ---
Demographics + + + | Address | [address] | | | [place] [address] | + + + | Home Phone [...] | Author | [facility] | | | and [place] | + + + | Organization | [facility] | | | and [...] Team Providers + +------+ + | Care Cement Boat And Barge Loader Name | Role | Phone | + [...] + + | 11/10/ | Clinical | [facility] | | Disorder of bone and | | 2014 | Support | Group [id number] | | cartilage, | | | | [address] [place] | | unspecified | | | | [address] [place] [address] | | | | | | [address] | | | | | | [phone] | | | +--------+ + + + [...] as of this encounter Progress Eunice Shaw, Wire Machine Operator - 11/10/2014 3:21 PM PDTA/P Spine and [...]
--- OUTSIDE RECORDS SUMMARY | ~2019-02-14 | XMS | Encounter Summary ---
Demographics + + + | Address | [address] | | | [place] [address] | + + + | Home Phone [...] Author + + + | Author | [facility] | + + + | Organization | [facility] | + + + | Address | Unknown | + + + | Phone | Unavailable | + + + Support + + + + + | Name | Relationship | Address | Phone | + + + + + | Zaida Putnam | ECON | [address] | | | | | [place], | | | | | [place] [address] | | + + + + + Care Team Providers + +------+ + | Care Head Of Drama Name | Role | Phone | + [...] of this encounter Progress Notes Interface, Teacher Cclc In - 02/07/2006 1:09 AM PSTCLINIC DATE: [...] or throat itching. She has been taking xwmh-ajq-ufjhcjy pseudoephedrine, but has not noted much relief. [...] Ms. Evans is planning to move to [place]. We will forward her records as soon [...]
--- OUTSIDE RECORDS SUMMARY | ~2019-02-14 | XMS | Encounter Summary ---
Demographics + + + | Address | [address] | | | [place] [address] | + + + | Home Phone | | + + + | Preferred Language | Unknown | + + + | Marital Status | Single | + + + | Gnosticism Affiliation | Unknown | + + + [...] [place], | | | | | [place] [address] | | + + + + + Care Team Providers + +------+ + | Care Pad Machine Feeder Name | Role | Phone | + [...] as of this encounter Progress Notes Interface, Dope Firer In - 02/14/2006 5:12 AM PSTINIC DATE: 03/21/1998 INTERNAL MEDICINE CLINIC SUBJECTIVE: Ms. Evans comes in today for follow up of her chronic pain. She has been in a flare for the last two weeks, since her mother became ill after having a fall precipitating a fractured humerus. 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 Wallace Szymanski. Hui Milton M.D. [facility] Wallace Szymanski M.D. [facility] MS/hhk d ocumented in this encounter Plan of Treatment Not on filedocumented as of this encounter Visit Diagnoses Not on filedocumented in this encounter"
--- OUTSIDE RECORDS SUMMARY | ~2019-02-14 | XMS | Encounter Summary ---
Demographics + + + | Address | [address] | | | [place] [address] | + + + | Home Phone [...] + + + | Author | [facility] | | | and [place] | + + + | Organization | [facility] | | | and [...] Team Providers + +------+ + | Care Vocational School Teacher Name | Role | Phone | + +------+ + | Timothy Elmore | PCP | | + +------+ + Encounter Details +--------+ + + + + | Date | Type | Department | Care Team | Description | +--------+ + + + + | 12/23/ | Orders Only | [facility] [place] | Joe Flores, | Low serum cortisol | | 2015 | | [place] | [address] [place] | level (HCC) | | | | ENDOCRINOLOGY [address] | [address] | | | | | [address] [place] | [place] [address] | | | | | [address] [place] | [phone] | | | | | [address] | | | | | | [phone] | | | +--------+ + + + [...] + +--------+ + + + | CORTISOL, 60 MIN | Routin | 12/23/2014 | Low serum cortisol | Results for this | | | e | 9:04 AM | level (HCC) | procedure are in the | | | | PST | | results section. | + +--------+ + + + | CORTISOL, AM | Routin | 12/23/2014 | Low serum cortisol | Results for this | | | e | 7:51 AM | level (HCC) | procedure are in the | | | | PST | | results section. | + +--------+ + + + | ACTH | Routin | 12/23/2014 | Low serum cortisol | Results for this | | | e | 7:51 AM | level (HCC) | procedure are in the | | | | PST | | results section. | + +--------+ + + + documented in this encounter Results Cortisol, 60 Min (12/23/2014 9:04 AM PST) + + + + + + | Component | Value | Ref Range | Performed | Pathologist | | | | | At | Signature | + + + + + + | CORTISOL 60 | 27.6Comment: Performed | ug/dL | [facility] | | | MIN | by [facility] | | [place] | | | | [address] | | CORE | | | | [place] [address] | | LABORATORY | | | | [...] | [address] | [place] [address] | [phone] | | [facility] (I) | | [...] (I) | | | | [place] [address] | | | | + + + + + + + + | Specimen | + + | Blood specimen | | (specimen) | + + + + + + + | Performing | Address | City/State/Zipcode | Phone Number | | Organization | | | | + + + + + | [place] | [address] | [place] [address] | [phone] | | CORE LAB[facility]ATORY (I) | | [...] | | (I) | | | | 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
--- OUTSIDE RECORDS SUMMARY | ~2019-02-14 | XMS | Encounter Summary ---
Demographics + + + | Address | [address] | | | [place] [address] | + + + | Home Phone | | + + + | Preferred Language | Unknown | + + + | Marital Status | Single | + + + | Orthodox Affiliation | Unknown | + + + | Race | Unknown | + + + | Ethnic Group | Unknown | + + + Author + + + | Author | [facility] | | | and [place] | + + + | Organization | [facility] | | | and [...] Providers + +------+ + | Care Rn Wellness Name | Role | Phone | + [...] + | 08/09/ | Telephone | [facility] | Tapan Bragg | Appointment (today's | | 2015 | | [facility] | [address] | appt) | | | | [address] [facility] | [address] [place], | | | | | [address] [place] | [place] | | | | | [address] | [phone] | | | | | [phone] | | | +--------+ + + + [...]
--- OUTSIDE RECORDS SUMMARY | ~2019-02-14 | XMS | Encounter Summary ---
Demographics + + + | Address | [address] | | | [place] [address] | + + + | Home Phone [...] [place], | | | | | [place] [address] | | + + + + + Care Team Providers + +------+ + | Care Cycle Consultant Name | Role | Phone | + +------+ + PCP | Unavailable | + +------+ + Encounter Details +--------+ + + + + | Date | Type | Department | Care Team | Description | +--------+ + + + + | 09/26/ | Results | | Other, Faculty | | | 1993 | Only | | [phone] | | +--------+ + + + + [...]
--- OUTSIDE RECORDS SUMMARY | ~2019-02-14 | XMS | Encounter Summary ---
Demographics + + + | Address | [address] | | | [place] [address] | + + + | Home Phone [...] [place], | | | | | [place] [address] | | + + + + + Care Team Providers + +------+ + | Care Scanning Coordinator Name | Role | Phone | [...] Clinic | | | | | | [facility], [address] | | | | | | [place], [place] | | | | | | [address] | | | | | | [phone] | | | +--------+ + + + [...] as of this encounter Progress Notes Interface, Leaf Tier In - 06/05/2006 1:00 AM PDT CLINIC [...] Ms. Evans remains quite active with her congregational organization oand is noticing that she has [...] outlets of her anger. John Mulligan M.D. Valet Parking Attendant, Anesthesiology Director, Pain Management Services HUI/fernando documented in this encounter Plan of Treatment Not on filedocumented as of this encounter Visit Diagnoses Not on filedocumented in this encounter"
--- OUTSIDE RECORDS SUMMARY | ~2019-02-14 | XMS | Encounter Summary ---
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 She has been five times and five [...] bowel sounds. No hepatosplenomegaly noted. Rectal deferred. BURIAL NEEDS SALESPERSON EXAMINATION: Deferred. EXTREMITIES: Clear of clubbing, cyanosis, [...] treatment plan were thoroughly discussed with Dr. Traiq Velásquez who concurred with this treatment plan. Hui Milton M.D. Resident, Internal Medicine Kaleb Velásquez M.D. Senior Technical Program Manager, Medicine TORI/tesfaye cc: Wallace Szymanski M.D. Senior Technical Program Manager, Internal Medicine Monroe Pruitt M.D. Senior Technical Program Manager, Anesthesiology Director of Pain Management Center cc: documente d in this encounter Plan of Treatment Not on filedocumented as of this encounter Visit Diagnoses Not on filedocumented in this encounter
--- OUTSIDE RECORDS SUMMARY | ~2019-02-14 | XMS | Encounter Summary ---
Demographics + + + | Address | [address] | | | [place] [address] | + + + | Home Phone [...] Author | [facility] | | | and [place] | + + + | Organization | [facility] | | | and [place] [...] Team Providers + +------+ + | Care Psychologist Engineering Name | Role | Phone | + [...] [place] | | | | | [address] | [phone] | | | | | [phone] | | | +--------+ + + + [...]
--- OUTSIDE RECORDS SUMMARY | ~2019-02-14 | XMS | Encounter Summary ---
Demographics + + + | Address | [address] | | | [place] [address] | + + + | Home Phone [...] [place], | | | | | [place] [address] | | + + + + + Care Team Providers + +------+ + | Care Medical Payment Poster Name | Role | Phone | + [...] Clinic | | | | | | [facility], [address] | | | | | | [place], [place] | | | | | | [address] | | | | | | [phone] | | | +--------+ + + + [...] as of this encounter Progress Notes Interface, Pipe Assembly Worker In - 06/01/2006 3:00 AM PDT CLINIC [...] actively in her social programs including attending protestant and bible-study sessions. CURRENT MEDICATIONS: Current medications [...] a very low level with her boyfriend's [employer] business. 3. Increasing social function. This seems to be quite stable and she now is able to understand the effect that anger has on her pain. Ms. Evans will no longer be able to be seen the Pain Management Clinic at [facility] because of a change in insurance coverage. She will be cared for at [facility]. She has requested that her Pain Management Clinic progress notes as well as her Orthopedic progress notes from [facility] be sent to that institution. Ms. Evans has done well after arriving receiving a relatively high dose of oral opioids, Vicodin approximately eight per day. She has been titrated off opioids, and her pain level has decreased from a score of 7-8/10 to currently 0-1/10. I believe that her prognosis is quite good in terms of her chronic pain. John Mulligan M.D. Corporate Attorney, Anesthesiology Director, Pain Management Services PK:bony cc: CAROLINE YOON MD PRESS TENDER [facility] documented in this encounter Plan of Treatment Not on filedocumented as of this encounter Visit Diagnoses Not on filedocumented in this encounter"
--- OUTSIDE RECORDS SUMMARY | ~2019-02-14 | XMS | Encounter Summary ---
Demographics + + + | Address | [address] | | | [place] [address] | + + + | Home Phone | | + + + | Preferred Language | Unknown | + + + | Marital Status | Single | + + + | Adventism Affiliation | Unknown | + + + | Race | Unknown | + + + | Ethnic Group | Unknown | + + + Author + + + | Author | [facility] | | | and [place] | + + + | Organization | [facility] | | [...] Team Providers + +------+ + | Care Steam Turbine Assembler Name | Role | Phone | + [...] [address] | | | | | [facility] [address] | [place] [address] | | | | | [address] [place] | [phone] | | | | | [address] | | | | | | [phone] | | | +--------+ + + + [...] | CORE | | | | [place] [address] | | LABORATORY | | | | [...] + + | [place] | [address] | [place] [address] | [phone] | | CORE LABORATORY (I) | | [...] (I) | | | | [place] [address] | | | | + + + + + + + + | Specimen | + + | Blood specimen | | (specimen) | + + + + + + + | Performing | Address | City/State/Zipcode | Phone Number | | Organization | | | | + + + + + | [place] | [address] | [place] [address] | [phone] | | CORE LABORATORY (I) | | [...] + + | [place] | [address] | [place] [address] | [phone] | | CORE LABORATORY (I) | | | | + + + + + documented in this encounter Visit Diagnoses + + | Diagnosis | + + | 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
--- OUTSIDE RECORDS SUMMARY | ~2019-02-14 | XMS | Encounter Summary ---
Demographics + + + | Address | [address] | | | [place] [address] | + + + | Home Phone [...] + + + | Author | [facility] | | | and [place] | + + + | Organization | [facility] | | | and [...] Team Providers + +------+ + | Care Manhole Stripper Name | Role | Phone | + [...] | | | | | Phone: | [phone] | | | | | | [phone] | Fax: | | | | | | Fax: | [phone] | | | | | | [phone] | | +--------+ + + + + [...] | | and other | [place] | [address] | | | | | examinations | [address] | Phone: | | | | | of body | Phone: | [phone] | | | | | structure | [phone] | Fax: | | | | | Procedures | | [phone] | | | | | CSJ-06/29 | | | +--------+--------+ + + + + Encounter Details +--------+---------+ + + + | Date | Type | Department | Care Team | Description | +--------+---------+ + + + | 05/08/ | Office | [facility] [place] [facility] | Tapan Bragg | Lumbar stenosis | | 2016 | Visit | [facility] | [address] | (Primary Dx) | | | | [address] [facility] | [facility] [address], | | | | | [address] [place] [address] | [place] [address] | | | | | [address] | [phone] | | | | | [phone] | | | +--------+---------+ + + + [...] sign up for MY CHART at the medical front desk specialist. Just ask the staff there to help [...] sign up for MY CHART at the medical front desk specialist. Just ask the staff there to help [...]
--- OUTSIDE RECORDS SUMMARY | ~2019-02-14 | XMS | Encounter Summary ---
Demographics + + + | Address | [address] | | | [place] [address] | + + + | Home Phone [...] Author + + + | Author | [facility] | + + + | Organization | [facility] | + + + | Address | Unknown | + + + | Phone | Unavailable | + + + Support + + + + + | Name | Relationship | Address | Phone | + + + + + | Zaida Putnam | ECON | [address] | | | | | [place], | | | | | [place] [address] | | + + + + + Care Team Providers + +------+ + | Care Fire Claims Adjuster Name | Role | Phone | + [...] as of this encounter Progress Notes Interface, Tappet Adjuster In - 02/14/2006 5:12 AM PSTINIC DATE: 03/21/1998 INTERNAL MEDICINE CLINIC SUBJECTIVE: Ms. Evans comes in today for follow up of her chronic pain. She has been in a flare for the last two weeks, since her mother became ill after having a fall precipitating a fractured humerus. 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 Wallace Szymanski. Hui Milton M.D. [facility] Wallace Szymanski M.D. [facility] MS/hhk d ocumented in this encounter Plan of Treatment Not on filedocumented as of this encounter Visit Diagnoses Not on filedocumented in this encounter"
--- OUTSIDE RECORDS SUMMARY | ~2019-02-14 | XMS | Encounter Summary ---
Demographics + + + | Address | [address] | | | [place] [address] | + + + | Home Phone | | + + + | Preferred Language | Unknown | + + + | Marital Status | Single | + + + | Denominational Affiliation | Unknown | + + + | Race | Unknown | + + + | Ethnic Group | Unknown | + + + Author + + + | Author | [facility] | | | and [place] | + + + | Organization | [facility] | | | and [...] Team Providers + +------+ + | Care Automobile Mechanic Apprentice Name | Role | Phone | + +------+ + | Timothy Elmore | PCP | | + +------+ + Reason for Visit + + + | Reason | Comments | + + + | Mouth Lesions | thrush onset in Spring 2015. Reports to being on Prednisone | + + + | Ear Fullness | bilateral ear pain and fullness. FHx of hearing loss | + + + Evaluate & Treat (Routine) +--------+--------+ + + + + | Status | Reason | Specialty | Diagnoses / | Referred By | Referred To | | | | | Procedures | Contact | Contact | +--------+--------+ + + + + | Closed | | Otolaryngolog | Diagnoses | Femi, | Alext, | | | | y | Unspecified | Migel Alvarenga MD | Jamir Marks MD | | | | | lesions of | [address] | | | | | oral mucosa | [place] | [address] | | | | | | [place], [place] | [place] [address] | | | | | | [address] | [place], [place] | | | | | | Phone: | [phone] Phone: | | | | | | [phone] | [phone] | | | | | | Fax: | Fax: | | | | | | [phone] | [phone] | +--------+--------+ + + + + Encounter Details +--------+---------+ + + + | Date | Type | Department | Care Team | Description | +--------+---------+ + + + | 12/07/ | Office | [facility] | Jamir Griffith, | Oral lesion (Primary | | 2016 | Visit | [facility] [address] | MD 1330 | Dx); Tinnitus, | | | | [address] [place] | CHARLES VALDEZ [place] | bilateral; | | | | [address] | [address] | Hoarseness; ETD | | | | [phone] | [phone] | (eustachian tube | | | | | | dysfunction), | | | | | | bilateral | +--------+---------+ + + + Social History + + [...] + + + | Blood Pressure | 138/78 | 12/08/2015 10:21 AM | | | | | PDT | | + + + + + | Pulse | 88 | 12/08/2015 10:21 AM | | | | | PDT | | + + + + + | Temperature | - | - | | + + + + + | Respiratory Rate | 16 | 12/08/2015 10:21 AM | | | | | PDT | | + + + + + | Oxygen Saturation | - | - | | + + + + + | Inhaled Oxygen | - | - | | | Concentration | | | | + + + + + | Weight | 70.3 kg (155 lb) | 12/08/2015 10:21 AM | | | | | PDT | | + + + + + | Height | 165.1 cm (5' 5") | 12/08/2015 10:21 AM | | | | | PDT | | + + + + + | Body Mass Index | 25.79 | 12/08/2015 10:21 AM | | | | | PDT [...] + + documented as of this encounter Patient Instructions Patient Instructions Jamir Griffith MD - 12/08/2015 11:31 AM PDT 1. My impression discussed with patient at length. 2. Patient will continue use of the normal saline rinses twice a day 3. Patient encouraged to DC tobacco 4. Patient encouraged to DC use of Sudafed on a regular basis. 5. RTC as needed for worsening of tinnitus or concern regarding hearing loss. documented in this encounter Progress Notes Jamir Griffith MD - 12/08/2015 11:21 AM PDTFormatting of this note might be different fr om the original. Subjective: Patient ID: Litzy Evans is a 60 y.o. female initially referred, apparently, for an ora l lesion. However, patient indicates that she is not certain why she is here. She denies a ny oral symptoms although she does recall that she had thrush earlier in the [facility] related to use of prolonged prednisone. Patient does have bilateral ringing in the ear s and a family history of hearing problems. Patient is extremely a rambling in her history. Patient does smoke 1-2 packs per day. She has been utilizing Sudafed twice daily for many years. She feels that this prevents ear infections. She also has hypertension. Patient complains of chronic deep tone to her voice, present since a young age. She wants to be certain that there is nothing wrong, especially since she smokes. 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/2015 Unknown Pancreatic insufficiency 12/14/2014 Unknown Diarrhea 12/14/2014 Unknown Loss of appetite 12/14/2014 Unknown Weight loss 12/14/2014 Unknown Dental caries 08/18/2014 Unknown Depression 08/18/2014 Unknown Hypertension 08/18/2014 Unknown Past Surgical History Procedure Laterality Date Tonsillectomy Tubal ligation Carpal tunnel release Partial hysterectomy Removal of lump Tarsal tunnel Breast surgery Knee surgery Left 2013 Total Knee Revision Family History Problem Relation Age of Onset Cancer Mother lung cancer Social History Social History Marital Status: Single Spouse Name: N/A Number of Children: N/A Years of Education: N/A Social History Main Topics Smoking status: Current Every Day Smoker -- 1.00 packs/day for 47 years Types: Cigarettes Smokeless tobacco: Never Used Alcohol Use: No Drug Use: Yes Special: Marijuana Sexual Activity: Not Asked Other Topics Concern None Social History Narrative Current Outpatient Prescriptions Medication Sig Dispense Refill acyclovir (ZOVIRAX) 200 mg capsule as needed. busPIRone (BUSPAR) 30 MG tablet NOT TAKING CALCIUM PO Take by mouth. carisoprodol (SOMA) 350 mg tablet Take 350 mg by mouth 2 times daily. carisoprodol (SOMA) 350 mg tablet DUPLICATE escitalopram (LEXAPRO) 10 mg tablet Take 20 mg by mouth Daily. estradiol (ESTRACE) 0.1 mg/g vaginal cream Place vaginally. estradiol (ESTRACE) 0.5 mg tablet Take 0.5 mg by mouth. 1 every 8 days FLOVENT HFA 220 MCG/ACT inhaler Inhale 2 puffs into the lungs Daily. fluticasone (FLONASE) 50 mcg/nasal spray Use 2 sprays in each nostril once a day furosemide (LASIX) 20 mg tablet Take 20 mg by mouth Daily. gabapentin (NEURONTIN) 600 MG tablet Take 1,200 mg by mouth 3 times daily. Hyoscyamine Sulfate (HYOSCYAMINE PO) Take by mouth as needed. lidocaine (XYLOCAINE) 2% solution Take 15 mLs by mouth as needed for Pain. No more than 60ml in 24hours. (Patient not taking: Reported on 12/08/2015) 100 mL 0 lisinopril (PRINIVIL, ZESTRIL) 20 mg tablet Take 20 mg by mouth Daily. loperamide (IMODIUM) 2 mg capsule Take 2 mg by mouth 4 times daily as needed for Diarrh ea. NIFEdipine (NIFEDICAL XL) 30 mg ER tablet Take 30 mg by mouth Daily. 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 predniSONE (DELTASONE) 20 mg tablet Take 10 mg by mouth. pseudoePHEDrine (SUDAFED) 120 mg 12 hr tablet Take 120 mg by mouth every 12 hours. sertraline (ZOLOFT) 100 mg tablet NOT TAKING TRAZODONE HCL PO NOT TAKING No current facility-administered medications for this visit. Current Outpatient Prescriptions on File Prior to Visit Medication Sig Dispense Refill acyclovir (ZOVIRAX) 200 mg capsule as needed. busPIRone (BUSPAR) 30 MG tablet NOT TAKING CALCIUM PO Take by mouth. carisoprodol (SOMA) 350 mg tablet Take 350 mg by mouth 2 times daily. carisoprodol (SOMA) 350 mg tablet DUPLICATE escitalopram (LEXAPRO) 10 mg tablet Take 20 mg by mouth Daily. estradiol (ESTRACE) 0.1 mg/g vaginal cream Place vaginally. estradiol (ESTRACE) 0.5 mg tablet Take 0.5 mg by mouth. 1 every 8 days fluticasone (FLONASE) 50 mcg/nasal spray Use 2 sprays in each nostril once a day gabapentin (NEURONTIN) 600 MG tablet Take 1,200 mg by mouth 3 times daily. Hyoscyamine Sulfate (HYOSCYAMINE PO) Take by mouth as needed. lidocaine (XYLOCAINE) 2% solution Take 15 mLs by mouth as needed for Pain. No more than 60ml in 24hours. (Patient not taking: Reported on 12/08/2015) 100 mL 0 lisinopril (PRINIVIL, ZESTRIL) 20 mg tablet Take 20 mg by mouth Daily. loperamide (IMODIUM) 2 mg capsule Take 2 mg by mouth 4 times daily as needed for Diarrh ea. NIFEdipine (NIFEDICAL XL) 30 mg ER tablet Take 30 mg by mouth Daily. 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 predniSONE (DELTASONE) 20 mg tablet Take 10 mg by mouth. pseudoePHEDrine (SUDAFED) 120 mg 12 hr tablet Take 120 mg by mouth every 12 hours. sertraline (ZOLOFT) 100 mg tablet NOT TAKING TRAZODONE HCL PO NOT TAKING No current facility-administered medications on file prior to visit. Allergies Allergen Reactions Ibuprofen Hives Nsaids Other (See Comments) Gastritis Amitriptyline Other (See Comments) Patient states "can't function at all" Clonidine Itching Atenolol Rash Review of Systems Constitutional: Negative. Negative for fatigue and unexpected weight change. HENT: Positive for hearing loss and postnasal drip. Negative for congestion, facial swellin g, mouth sores and nosebleeds. Eyes: Negative. Skin: Negative. Allergic/Immunologic: Negative. Hematological: Negative. Psychiatric/Behavioral: No diagnosed psychiatric disorder Objective: Physical Exam Constitutional: She is oriented to person, place, and time. She appears well-developed and well-nourished. HENT: Head: Normocephalic and atraumatic. Right Ear: Tympanic membrane and ear canal normal. Left Ear: Tympanic membrane and ear canal normal. Nose: Septal deviation present. Edentulous maxilla. Remaining mandibular teeth in fair repair. Oral mucosa appears dry. Nasal septum deviated to the right. Neck: Trachea normal, normal range of motion and phonation normal. Neck supple. No thyromeg michael present. Pulmonary/Chest: Effort normal. Lymphadenopathy: She has no cervical adenopathy. Neurological: She is alert and oriented to person, place, and time. Skin: Skin is warm and dry. Psychiatric: Her behavior is normal. For further evaluation of the nose, septum, turbinates, middle meatus, nasopharynx, orophar ynx, hypopharynx and larynx, flexible fiberoptic nasolaryngoscopy was performed. Following counseling, Afrin nasal spray and 4% lidocaine solution were applied to the nose bilaterally. Findings: Nasal septum: deviated to the right Nasal turbinates: normal Middle meatus: patent bilaterally, no pus or polyps seen Nasal discharge: . Thickened/ropey. Nasopharynx: Clear. Adenoid normal for age. Oropharynx: Tonsils: Small/absent. Soft palate: Normal Base of tongue: Unremarkable; symmetrical Hypopharynx: Lateral pharyngeal toledo symmetrical; diffuse mild erythema consistent w ith tobacco use Aryepiglottic folds: Normal without lesions Pyriform sinuses: Clear without pooled secretions Post cricoid area: without thickening; without erythema Endolarynx: Vocal cords move well without lesions. The patient tolerated the procedure well. Assessment: 1. No signs of oral lesion 2. No signs of eustachian tube dysfunction at this time 3. Chronic Sudafed use 4. Tobacco abuse 5. Bilateral tinnitus with probable bilateral hearing loss Plan: 1. My impression discussed with patient at length. 2. Patient will continue use of the normal saline rinses twice a day 3. Patient encouraged to DC tobacco 4. Patient encouraged to DC use of Sudafed on a regular basis. 5. RTC as needed for worsening of tinnitus or concern regarding hearing loss. I spent 50 minutes [id number] with Litzy Evans today; greater than 50% was spent in counseling regarding the diagnoses, options, and management plan as detailed above. A significant amount of time was spent for leaving the patient's symptoms and her subjectiv e impression of her problems with actual diagnoses. documented in this e ncounter Plan of Treatment Not on filedocumented as of this encounter Visit Diagnoses + + | Diagnosis | + + | Oral lesion - Primary Other and unspecified diseases of the oral soft tissues | + + | Tinnitus, bilateral Unspecified tinnitus | + + | Hoarseness Dysphonia | + + | ETD (Eustachian tube dysfunction), bilateral | + + documented in this encounter
--- OUTSIDE RECORDS SUMMARY | ~2019-02-14 | XMS | Encounter Summary ---
Demographics + + + | Address | [address] | | | [place] [address] | + + + | Home Phone [...] [place], | | | | | [place] [address] | | + + + + + Care Team Providers + +------+ + | Care Creative Services Writer Name | Role | Phone | + [...] as of this encounter Progress Notes Interface, Ice Cream Freezer Helper In - 02/23/2006 5:02 AM PSTCLINIC [...] M.D. Resident, Internal Medicine Wallace Szymanski M.D. Senior Pensions Administrator, Internal Medicine TORI:mau d ocumented in this encounter Plan of Treatment Not on filedocumented as of this encounter Visit Diagnoses Not on filedocumented in this encounter
--- OUTSIDE RECORDS SUMMARY | ~2019-02-14 | XMS | Encounter Summary ---
Demographics + + + | Address | [address] | | | [place] [address] | + + + | Home Phone [...] [place], | | | | | [place] [address] | | + + + + + Care Team Providers + +------+ + | Care Field Geologist Name | Role | Phone | + +------+ + PCP | Unavailable | + +------+ + Encounter Details +--------+ + + + + | Date | Type | Department | Care Team | Description | +--------+ + + + + | 04/11/ | Office | UNKNOWN DEPARTMENT | Note, Outpatient | Progress Note | | 1994 | Visit-Trans | [address] [facility] | Clinic | | | | [place] | [address] | | | | | | [place], [place] | | | | | | [address] | | | +--------+ + + + [...] as of this encounter Progress Notes Interface, Line Builder In - 06/11/2006 5:10 AM PDT CLINIC [...] Follow-up in Pain Clinic. Faisal Grijalva M.D. Spragger, Neurology FELIZ:manuel documented in this encounter Plan of Treatment Not on filedocumented as of this encounter Visit Diagnoses Not on filedocumented in this encounter
--- OUTSIDE RECORDS SUMMARY | ~2019-02-14 | XMS | Encounter Summary ---
Demographics + + + | Address | [address] | | | [place] [address] | + + + | Home Phone [...] [place], | | | | | [place] [address] | | + + + + + Care Team Providers + +------+ + | Care Vehicle Painter Name | Role | Phone | [...] [id number] | | | | | | [place], [place] | | | | | | [address] | | | | | | [phone] | | | +--------+ + + + [...] | + + + + + | [facility] | [address] | [place] [address] | | | PATHOLOGY | [address] [...] | + + + + + | [facility] | [address] | [place] [address] | | | PATHOLOGY | [address] [...] | + + + + + | [facility] | [address] | [place] [address] | | | PATHOLOGY | [address] [...] | + + + + + | [facility] | [address] | [place] [address] | | | PATHOLOGY | [address] [...] | + + + + + | [facility] | [address] | [place] [address] | | | PATHOLOGY | [address] [...] | + + + + + | [facility] | [address] | [place] [address] | | | PATHOLOGY | [address] | | | + + + + + documented in this encounter Visit Diagnoses Not on filedocumented in this encounter"
--- OUTSIDE RECORDS SUMMARY | ~2019-02-14 | XMS | Encounter Summary ---
Demographics + + + | Address | [address] | | | [place] [address] | + + + | Home Phone [...] [place], | | | | | [place] [address] | | + + + + + Care Team Providers + +------+ + | Care Intellectual Property Counsel Name | Role | Phone | + +------+ + PCP | Unavailable | + +------+ + Encounter Details +--------+ + + + + | Date | Type | Department | Care Team | Description | +--------+ + + + + | 01/03/ | Results | [facility]rology [facility] & | Faisal Grijalva MD | | | 1993 | Only | [facility] | [address] | | | | | [address] | [facility] [place] | | | | | Loop Mailcode: | [address] | | | | | [id number] Outpatient | [phone] | | | | | Clinic Building | | | | | | [place], [place] | | | | | | [address] | | | | | | [phone] | | | +--------+ + + + [...] | | + +---------+ + + | [facility] DEPARTMENT | | | | | RADIOLOGY | | | | + +---------+ + + documented in this encounter Visit Diagnoses Not on filedocumented in this encounter"
--- OUTSIDE RECORDS SUMMARY | ~2019-02-14 | XMS | Encounter Summary ---
Demographics + + + | Address | [address] | | | [place] [address] | + + + | Home Phone [...] [place], | | | | | [place] [address] | | + + + + + Care Team Providers + +------+ + | Care Home Day Care Provider Name | Role | Phone | + [...] as of this encounter Progress Notes Interface, Heel Molder In - 02/23/2006 5:02 AM PSTCLINIC DATE: [...] C: 01/10/1998 ds cc: Wallace Szymanski M.D. Pole Frame Construction Worker, Internal Medicine Hui Milton M.D. Resident, Internal Medicine 07 5:02 AM PSTdocumented in this encounter Plan of Treatment Not on filedocumented as of this encounter Visit Diagnoses Not on filedocumented in this encounter"
--- OUTSIDE RECORDS SUMMARY | ~2019-02-14 | XMS | Encounter Summary ---
Demographics + + + | Address | [address] | | | [place] [address] | + + + | Home Phone [...] | Author | [facility] | | | and [place] | + + + | Organization | [facility] | | | and [place] [...] Team Providers + +------+ + | Care Maintainability Engineer Name | Role | Phone | [...] + + | 06/21/ | Telephone | [facility] | Jacklyn, | Referral (Follow up) | | 2016 | | [facility] | [address] | ([address] (PRMCE) | | | | [address] | -- APPROVED); Other | | | | [address] [place] | [place] [address] | (See comments) | | | | [address] | [phone] | | | | | [phone] | | | +--------+ + + + [...]
--- OUTSIDE RECORDS SUMMARY | ~2019-02-14 | XMS | Encounter Summary ---
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 She has been five times and five [...] bowel sounds. No hepatosplenomegaly noted. Rectal deferred. TIP FIXER EXAMINATION: Deferred. EXTREMITIES: Clear of clubbing, cyanosis, [...] M.D. Resident, Internal Medicine Kaleb Velásquez M.D. Pecan Grower, Medicine TORI/tesfaye cc: Wallace Szymanski M.D. Pecan Grower, Internal Medicine Monroe Pruitt M.D. Pecan Grower, Anesthesiology Director of Pain Management Center cc: documente d in this encounter Plan of Treatment Not on filedocumented as of this encounter Visit Diagnoses Not on filedocumented in this encounter
--- OUTSIDE RECORDS SUMMARY | ~2019-02-14 | XMS | Encounter Summary ---
Demographics + + + | Address | [address] | | | [place] [address] | + + + | Home Phone [...] [place], | | | | | [place] [address] | | + + + + + Care Team Providers + +------+ + | Care Front Edger Name | Role | Phone | [...] [id number] | | | | | | [place], [place] | | | | | | [address] | | | | | | [phone] | | | +--------+ + + + [...] | + + + + + | [facility] | [address] | [place] [address] | | | PATHOLOGY | [address] | | | + + + + + documented in this encounter Visit Diagnoses Not on filedocumented in this encounter"
--- OUTSIDE RECORDS SUMMARY | ~2019-02-14 | XMS | Encounter Summary ---
Demographics + + + | Address | [address] | | | [place] [address] | + + + | Home Phone [...] [place], | | | | | [place] [address] | | + + + + + Care Team Providers + +------+ + | Care Machine Boss Name | Role | Phone | + [...] [id number] | | | | | | [place], [place] | | | | | | [address] | | | | | | [phone] | | | +--------+ + + + [...] | + + + + + | [facility] | [address] | [place] [address] | | | PATHOLOGY | [address] [...] | + + + + + | [facility] | [address] | [place] [address] | | | PATHOLOGY | [address] [...] | + + + + + | [facility] | [address] | [place] [address] | | | PATHOLOGY | [address] [...] | + + + + + | [facility] | [address] | [place] [address] | | | PATHOLOGY | [address] [...] | + + + + + | [facility] | [address] | [place] [address] | | | PATHOLOGY | [address] [...] | + + + + + | [facility] | [address] | [place] [address] | | | PATHOLOGY | [address] | | | + + + + + documented in this encounter Visit Diagnoses Not on filedocumented in this encounter"
--- OUTSIDE RECORDS SUMMARY | ~2019-02-14 | XMS | Encounter Summary ---
Demographics + + + | Address | [address] | | | [place] [address] | + + + | Home Phone [...] [place], | | | | | [place] [address] | | + + + + + Care Team Providers + +------+ + | Care Neuropsychiatric Aide Name | Role | Phone | [...] as of this encounter Progress Notes Interface, Crackling Press Operator In - 02/28/2006 3:08 AM [facility] [place] [address] [address], [place] [address] or November 05, 1997 OLEG PUGH MD [address] [facility] [address] RE: LITZY EVANS MR#: [id number] : [id number] Pugh: I had the pleasure of seeing your patient, Ms. Litzy Evans, [facility] today for evaluation of her chronic pain problem. Ms. Evans tells me that she has moved to [place] within the last week and plans to establish care in the month of November with Dr. Kaleb Velásquez here at [facility]. Therefore, I will send you a copy of this letter, as well as Dr. Velásquez. Please allow me to briefly review Ms. Evans' history, as well as my evaluations, findings, and suggestions. Ms. Evans is a 42-year-old woman with a longstanding history of low back pain who had been previously treated at [facility] prior to my arrival at [facility]. She states that she has had the [...] tried a variety of medications including Tegretol, [place], Amitriptyline, and other antidepressants. CURRENT MEDICATIONS: 1. [...] has recently ended. She has moved to [place] and is now living with an ex-'s mother. 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 She smokes one pack of cigarettes [...] also with some difficulty. Romberg is negative. Tfcelw-gixh-xwfycj is normal. On examination of her chest [...] normal limits." IMPRESSION: 1. Fibromyalgia by 1990 [place] [employer] criteria. 2. Significant psychiatric [...] care from Internal Medicine here at [facility], would be for her to see Vaishnavi [...] the 1995 intractable pain act here in [place]. I agreed with Ms. Evans that should she establish care with Dr. Velásquez here at [facility], I would be happy to discuss her care with him at that point. In the meantime, I have nothing additional or specific to offer for Ms. Evans' care. Thank you very much for your referral of Ms. Evans to the [facility] here at [facility]. If you have any questions or concerns, please do not hesitate to give me a call at [phone]. Monroe Pruitt M.D. Survey Coordinator, Anesthesiology Director of Pain Management Center BRS:mau cc: Kaleb Velásquez M.D. Survey Coordinator, Medicine Richie Her, M.D. Survey Coordinator, Department of Orthopedics and Rehabilitation Kaleb Velásquez M.D. Survey Coordinator, Medicine Richie Her M.D. Survey Coordinator, Department of Orthopedics and Rehabilitation documented in this encounter Plan of Treatment Not on filedocumented as of this encounter Visit Diagnoses Not on filedocumented in this encounter
--- OUTSIDE RECORDS SUMMARY | ~2019-02-14 | XMS | Encounter Summary ---
Demographics + + + | Address | [address] | | | [place] [address] | + + + | Home Phone [...] + + + | Author | [facility] | | | and [place] | + + + | Organization | [facility] | | | and [place] [...] Team Providers + +------+ + | Care Warehouse Insulation Worker Name | Role | Phone | [...] | | | | | Phone: | [phone] | | | | | | [phone] | Fax: | | | | | | Fax: | [phone] | | | | | | [phone] | | +--------+ + + + + [...] | | and other | [place] | [address] | | | | | examinations | [address] | Phone: | | | | | of body | Phone: | [phone] | | | | | structure | [phone] | Fax: | | | | | Procedures | | [phone] | | | | | CSJ-06/29 | | | +--------+--------+ + + + + Encounter Details +--------+---------+ + + + | Date | Type | Department | Care Team | Description | +--------+---------+ + + + | 05/08/ | [facility] | [facility] [place] [facility] | Tapan Bragg | Lumbar stenosis | | 2016 | Visit | [facility] | MD Felisa [address] | (Primary Dx) | | | | [address] [facility] | [facility] [address], | | | | | [address] [place] [address] | [place] [address] | | | | | [address] | [phone] | | | | | [phone] | | | +--------+---------+ + + + [...] up for MY CHART at the front end manager. Just ask the staff there to help [...] up for MY CHART at the front end manager. Just ask the staff there to help [...]
--- OUTSIDE RECORDS SUMMARY | ~2019-02-14 | XMS | Encounter Summary ---
Demographics + + + | Address | [address] | | | [place] [address] | + + + | Home Phone | | + + + | Preferred Language | Unknown | + + + | Marital Status | Single | + + + | Christian Affiliation | Unknown | + + + [...] [place], | | | | | [place] [address] | | + + + + + Care Team Providers + +------+ + | Care Chief Sales Officer Name | Role | Phone | [...] as of this encounter Progress Notes Interface, Sizing Machine Tender In - 02/17/2006 3:01 AM PSTCLINIC DATE: 03/09/1998 [facility] SUBJECTIVE: This is a patient of Mp Milton who comes in today with pain exacerbation secondary to her fibromyalgia and chronic low back pain. At the last visit she made a verbal commitment for management of her chronic pain, which included an agreement that Mp was her sole Vicodin ecommerce manager. She attempted to make an appointment [...]
--- OUTSIDE RECORDS SUMMARY | ~2019-02-14 | XMS | Encounter Summary ---
Demographics + + + | Address | [address] | | | [place] [address] | + + + | Home Phone [...] [place], | | | | | [place] [address] | | + + + + + Care Team Providers + +------+ + | Care Wax Pattern Assembler Name | Role | Phone | [...] as of this encounter Progress Notes Interface, Equipment Operation Instructor In - 02/28/2006 3:08 AM [facility] [place] [address] [address], [place] [address] or November 05, 1997 OLEG PUGH MD [address] [facility] [address] RE: LITZY EVANS MR#: [id number] Pugh: I had the pleasure of seeing your patient, Ms. Litzy Evans, at [facility] today for evaluation of her chronic pain problem. Ms. Evans tells me that she has moved to [place] within the last week and plans to establish care in the month of November with Dr. Kaleb Velásquez here at [facility]. Therefore, I will send you a copy of this letter, as well as Dr. Velásquez. Please allow me to briefly review Ms. Evans' history, as well as my evaluations, findings, and suggestions. Ms. Evans is a 42-year-old woman with a longstanding history of low back pain who had been previously treated at the [facility] prior to my arrival at [facility]. She states that she has had the [...] tried a variety of medications including Tegretol, [place], Amitriptyline, and other antidepressants. CURRENT MEDICATIONS: 1. [...] has recently ended. She has moved to [place] and is now living with an ex-'s mother. 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 She smokes one pack of [...] also with some difficulty. Romberg is negative. Mnjzkd-hupv-aqahwx is normal. On examination of her chest [...] normal limits." IMPRESSION: 1. Fibromyalgia by 1990 [place] [employer] criteria. 2. Significant psychiatric [...] her care from Internal Medicine here at [facility], would be for her to see Vaishnavi [...] the 1995 intractable pain act here in [place]. I agreed with Ms. Evans that should she establish care with Dr. Velásquez here at [facility], I would be happy to discuss her care with him at that point. In the meantime, I have nothing additional or specific to offer for Ms. Evans' care. Thank you very much for your referral of Ms. Evans to the [facility] Center here at [facility]. If you have any questions or concerns, please do not hesitate to give me a call at [phone]. Monroe Pruitt M.D. Algebra Teacher, Anesthesiology Director of [facility] Management Center BRS:mau cc: Kaleb Velásquez M.D. Algebra Teacher, Medicine Richie Her, M.D. Algebra Teacher, Department of Orthopedics and Rehabilitation Kaleb Velásquez M.D. Algebra Teacher, Medicine Richie Her M.D. Algebra Teacher, Department of Orthopedics and Rehabilitation documented in this encounter Plan of Treatment Not on filedocumented as of this encounter Visit Diagnoses Not on filedocumented in this encounter
--- OUTSIDE RECORDS SUMMARY | ~2019-02-14 | XMS | Encounter Summary ---
Demographics + + + | Address | [address] | | | [place] [address] | + + + | Home Phone [...] + | Author | [facility] | | | and [place] | + + + | Organization | [facility] | [...] Team Providers + +------+ + | Care President [employer] Name | Role | Phone | + [...] | [address] | [address] | pulmonary disease, | | | | [place] | [place] [address] | unspecified COPD | | | | [address] | [address] | type (HCC) (Primary | | | | [phone] | [phone] | Dx) | +--------+ + + + [...]
--- OUTSIDE RECORDS SUMMARY | ~2019-02-14 | XMS | Encounter Summary ---
Demographics + + + | Address | [address] | | | [place] [address] | + + + | Home Phone [...] [place], | | | | | [place] [address] | | + + + + + Care Team Providers + +------+ + | Care Local Coordinator Name | Role | Phone | [...] as of this encounter Progress Notes Interface, Furniture Polisher In - 02/28/2006 3:08 AM PST [facility] Account No. PROGRESS RECORD Name Litzy Evans Birthdate 1955 Date Probl Time em FORMAT: PROBLEM NUMBER and TITLE: S=Subjective Number O=Objective A=Analysis P=Plans CLINIC DATE: 11/05/1997 November 05, 1997 OLEG PUGH MD [address] [facility] [address] RE: Litzy EVANS. MR#: [id number] [...] November with Dr. Kaleb Velásquez here at [facility]. Therefore, I will send you a copy of this letter, as well as Dr. Velásquez. Please allow me to briefly review Ms. Evans' history, as well as my evaluations, findings, and suggestions. Ms. Evans is a 42-year-old woman with a longstanding history of low back pain who had been previously treated at [facility] prior to my arrival at [facility]. She states that she has had the [...] tried a variety of medications including Tegretol, [place], Amitriptyline, and other antidepressants. CURRENT MEDICATIONS: 1. 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 She smokes one pack of [...] also with some difficulty. Romberg is negative. Fjnppq-madw-spterf is normal. On examination of her chest [...] normal limits." IMPRESSION: 1. Fibromyalgia by 1990 [place] [employer]umat[employer] criteria. 2. Significant psychiatric [...] her care from Internal Medicine here at [facility], would be for her to see Vaishnavi [...] establish care with Dr. Velásquez here at [facility], I would be happy to discuss her care with him at that point. In the meantime, I have nothing additional or specific to offer for Ms. Evans' care. Thank you very much for your referral of Ms. Evans to the [facility] Management Center here at [facility]. If you have any questions or concerns, please do not hesitate to give me a call at [phone]. Monroe Pruitt M.D. Hospitality Services Manager, Anesthesiology Director of [facility] Management Center BRS:mau cc: Kaleb Velásquez M.D. Hospitality Services Manager, Medicine Richie Her M.D. Hospitality Services Manager, Department of Orthopedics and Rehabilitation nterface, Furniture Polisher In - 02/28/2006 3:08 AM PSTCLINIC DATE: 11/05/97 PHONE CALL: Litzy called today requesting more Vicodin. She wanted it called to [facility]. I spoke with Dr. Her in regard to this and he declined the request. I called the patient at 16:15 and left a message to that effect. The phone number is [phone]. Lindsay Romeo R.N. Orthopedics HALLIE/emily P cc: documente d in this encounter Plan of Treatment Not on filedocumented as of this encounter Visit Diagnoses Not on filedocumented in this encounter
--- OUTSIDE RECORDS SUMMARY | ~2019-02-14 | XMS | Encounter Summary ---
Demographics + + + | Address | [address] | | | [place] [address] | + + + | Home Phone [...] [place], | | | | | [place] [address] | | + + + + + Care Team Providers + +------+ + | Care Ice Cream Machine Operator Name | Role | Phone [...] [address] | | | | | | [place] | | | | | | [address] | | | +--------+ + + + [...] as of this encounter Progress Notes Interface, Retail Cashier In - 06/14/2006 5:08 AM PDT [address] [address] [facility] January 08, 1994 DARYL ELLIS PH D PRODUCT SAFETY COORDINATOR MEDICAL PSYCHOLOGY [address] [address] RE:Litzy Evans MR:[id number] Ellis: Thank [...] any further information. Sincerely, Faisal Grijalva M.D. Superintendent Sanitation, Neurology PIYUSH:sailaja January 09, 1994 documented in this encounter Plan of Treatment Not on filedocumented as of this encounter Visit Diagnoses Not on filedocumented in this encounter"
--- OUTSIDE RECORDS SUMMARY | ~2019-02-14 | XMS | Encounter Summary ---
Demographics + + + | Address | [address] | | | [place] [address] | + + + | Home Phone [...] [place], | | | | | [place] [address] | | + + + + + Care Team Providers + +------+ + | Care Car Lot Attendant Name | Role | Phone | + +------+ + PCP | Unavailable | + +------+ + Encounter Details +--------+ + + + + | Date | Type | Department | Care Team | Description | +--------+ + + + + | 12/25/ | Office | UNKNOWN DEPARTMENT | Note, Outpatient | Progress Note | | 1993 | Visit-Trans | [address] [facility] | Clinic | | | | [place] | [address] | | | | | | [place], [place] | | | | | | [address] | | | +--------+ + + + [...] as of this encounter Progress Notes Interface, Soil Fertility Specialist In - 06/14/2006 5:08 AM PDT CLINIC [...] drink alcohol. 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 She is , currently living with a boyfriend/roommate in [place]. She is subsisting on Welfare, she has [...] management of somatization disorder. Faisal Grijalva M.D. Clinical Research Director, Neurology PIYUSH/ifrah cc: LEILANI ACOSTA MD [address] [place] [address] documented in this encounter Plan of Treatment Not on filedocumented as of this encounter Visit Diagnoses Not on filedocumented in this encounter
--- OUTSIDE RECORDS SUMMARY | ~2019-02-14 | XMS | Encounter Summary ---
Demographics + + + | Address | [address] | | | [place] [address] | + + + | Home Phone [...] + + + | Author | [facility] | + + + | Organization | [facility] | + + + | Address | Unknown | + + + | Phone | Unavailable | + + + Support + + + + + | Name | Relationship | Address | Phone | + + + + + | Zaida Putnam | ECON | [address] | | | | | [place], | | | | | [place] [address] | | + + + + + Care Team Providers + +------+ + | Care Clean Room Assembler Name | Role | Phone | [...]
--- OUTSIDE RECORDS SUMMARY | ~2019-02-14 | XMS | Encounter Summary ---
Demographics + + + | Address | [address] | | | [place] [address] | + + + | Home Phone [...] [place], | | | | | [place] [address] | | + + + + + Care Team Providers + +------+ + | Care Bearing Press Machine Operator Name | Role | Phone [...]
--- OUTSIDE RECORDS SUMMARY | ~2019-02-14 | XMS | Encounter Summary ---
Demographics + + + | Address | [address] | | | [place] [address] | + + + | Home Phone [...] + | Author | [facility] | | | and [place] | + + + | Organization | [facility] | [...] Team Providers + +------+ + | Care Finished Yarn Examiner Name | Role | Phone | + +------+ + | Timothy Elmore | PCP | | + +------+ + Encounter Details +--------+ + + + + | Date | Type | Department | Care Team | Description | +--------+ + + + + | 08/18/ | Abstract | [facility] | Karlee, | Dental caries | | 2015 | | PHYSIATRY [address] | Yfn Sabillon CMA | (Primary Dx); | | | | [address] | | Depression; | | | | [place] | | Essential | | | | [address] | | hypertension | | | | [phone] | | | +--------+ + + + [...]
--- OUTSIDE RECORDS SUMMARY | ~2019-02-14 | XMS | Encounter Summary ---
Demographics + + + | Address | [address] | | | [place] [address] | + + + | Home Phone [...] [place], | | | | | [place] [address] | | + + + + + Care Team Providers + +------+ + | Care Engineer Conductor Name | Role | Phone | + +------+ + PCP | Unavailable | + +------+ + Encounter Details +--------+ + + + + | Date | Type | Department | Care Team | Description | +--------+ + + + + | 01/01/ | Office | UNKNOWN DEPARTMENT | Note, Outpatient | Progress Note | | 1993 | Visit-Trans | [address] [facility] | Clinic | | | | [place] | [address] | | | | | | [place], [place] | | | | | | [address] | | | +--------+ + + + [...] as of this encounter Progress Notes Interface, Motion Picture Set Grip In - 06/14/2006 5:08 AM PDT CLINIC [...] after the above studies. Faisal Grijalva M.D. Striper Machine, Neurology JQ:bony cc: DICK ACOSTA MD [address] [address] documented in this encounter Plan of Treatment Not on filedocumented as of this encounter Visit Diagnoses Not on filedocumented in this encounter"
--- OUTSIDE RECORDS SUMMARY | ~2019-02-14 | XMS | Encounter Summary ---
Demographics + + + | Address | [address] | | | [place] [address] | + + + | Home Phone [...] [place], | | | | | [place] [address] | | + + + + + Care Team Providers + +------+ + | Care Coffee Grower Name | Role | Phone | + [...]
--- OUTSIDE RECORDS SUMMARY | ~2019-02-14 | XMS | Encounter Summary ---
Demographics + + + | Address | 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 Moreover, she says this is an important [...] myself or from any other provider at [facility]. She has violated our contract as set forth in a previous note. She understands this. Moreover, she understands that her chart will be flagged in the [facility] system so that she cannot receive narcotics. [...]
--- OUTSIDE RECORDS SUMMARY | ~2019-02-14 | XMS | Encounter Summary ---
Demographics + + + | Address | [address] | | | [place] [address] | + + + | Home Phone [...] | + + + + + | Zaiad Putnam | ECON | [address] | | | | | [place], | | | | | [place] [address] | | + + + + + Care Team Providers + +------+ + | Care Tangled Yarn Worker Name | Role | Phone | + +------+ + PCP | Unavailable | + +------+ + Encounter Details +--------+ + + + + | Date | Type | Department | Care Team | Description | +--------+ + + + + | 09/20/ | Office | General Internal | Note, Outpatient | Progress Note | | 1994 | Visit-Trans | Medicine [address] | Clinic | | | | [place] | [address] | | | | | | Mailcode: [id number] | | | | | | Outpatient Clinic | | | | | | [facility], [address] | | | | | | [place], [place] | | | | | | [address] | | | | | | [phone] | | | +--------+ + + + [...] as of this encounter Progress Notes Interface, Bricklayer Helper In - 06/01/2006 3:00 AM PDT CLINIC DATE: 09/20/94 PSYCHIATRY CLINIC: OBSESSIVE-COMPULSIVE DISORDER (OCD) PSYCHIATRIC CLINIC EVALUATION: IDENTIFYING INFORMATION: Ms. Evans is a 39-year-old white female who is self-referred to the OCD Clinic for evaluation of potential obsessive-compulsive disorder symptomatology. Sources of information include the patient who appears to be a reliable historian as well as the [facility] chart including a neuropsychological evaluation conducted [...] 1994. 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 Since that time, she has been on Social Security disability. Her boyfriend works in an auto shop that they bought several years ago. She has tried to work in the [employer] shop but is unable to tolerate it [...] interview carrying the [facility] OCD. She easily engages in the [...] Monroy M.D. Resident, Psychiatry Jamir Payan M.D. Pipe Fitter Welding, Psychiatry and occurred after her last divorce. [...] 1994. 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 Since that time, she has been on Social Security disability. Her boyfriend works in an auto shop that they bought several years ago. She has tried to work in the [employer] shop but is unable to tolerate it [...] interview carrying the recent article from the [facility] on OCD. She easily engages [...] Monroy M.D. Resident, Psychiatry Jamir Payan M.D. Pipe Fitter Welding, Psychiatry Aaron:bony WOOD:bony C: 10/04/94 shubham documented in this encounter Plan of Treatment Not on filedocumented as of this encounter Visit Diagnoses Not on filedocumented in this encounter
--- OUTSIDE RECORDS SUMMARY | ~2019-02-14 | XMS | Encounter Summary ---
Demographics + + + | Address | [address] | | | [place] [address] | + + + | Home Phone [...] [place], | | | | | [place] [address] | | + + + + + Care Team Providers + +------+ + | Care Ring Facer Name | Role | Phone | + [...] as of this encounter Progress Notes Interface, Deck Specialist In - 02/12/2006 3:04 AM PSTCLINIC DATE: [...]
--- OUTSIDE RECORDS SUMMARY | ~2019-02-14 | XMS | Encounter Summary ---
Demographics + + + | Address | [address] | | | [place] [address] | + + + | Home Phone [...] [place], | | | | | [place] [address] | | + + + + + Care Team Providers + +------+ + | Care Manager Gallery Name | Role | Phone | + [...] of this encounter Progress Notes Interface, Ice Cutter In - 02/28/2006 3:[address] [facility] Account No. PROGRESS RECORD Name Litzy Evans Birthdate 1955 Date Probl Time em FORMAT: PROBLEM NUMBER and TITLE: S=Subjective Number O=Objective A=Analysis P=Plans CLINIC DATE: 11/05/1997 November 05, 1997 OLEG PUGH MD [address] [facility] [address] RE: Litzy EVANS. MR#: [id number] : 51 [...] November with Dr. Kaleb Velásquez here at [facility]. Therefore, I will send you a copy of this letter, as well as Dr. Velásquez. Please allow me to briefly review Ms. Evans' history, as well as my evaluations, findings, and suggestions. Ms. Evans is a 42-year-old woman with a longstanding history of low back pain who had been previously treated at [facility] prior to my arrival at [facility]. She states that she has had the [...] tried a variety of medications including Tegretol, Worley, Amitriptyline, and other antidepressants. CURRENT MEDICATIONS: 1. 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 She smokes one pack of cigarettes a [...] also with some difficulty. Romberg is negative. Dpgdsy-opij-foyesw is normal. On examination of her chest [...] normal limits." IMPRESSION: 1. Fibromyalgia by 1990 [employer] criteria. 2. Significant psychiatric [...] her care from Internal Medicine here at [facility], would be for her to see Vaishnavi [...] establish care with Dr. Velásquez here at [facility], I would be happy to discuss her care with him at that point. In the meantime, I have nothing additional or specific to offer for Ms. Evans' care. Thank you very much for your referral of Ms. Evans to the [facility] here at [facility]. If you have any questions or concerns, please do not hesitate to give me a call at [phone]. Monroe Pruitt M.D. Global Supply Chain Vice President, Anesthesiology Director of [facility] BRS:mau cc: Kaleb Velásquez M.D. Global Supply Chain Vice President, Medicine Richie Her M.D. Global Supply Chain Vice President, Department of Orthopedics and Rehabilitation nterface, Ice Cutter In - 02/28/2006 3:08 AM PSTCLINIC DATE: 11/05/97 PHONE CALL: Litzy called today requesting more Vicodin. She wanted it called to [facility]. I spoke with Dr. Her in regard to this and he declined the request. I called the patient at 16:15 and left a message to that effect. The phone number is [phone]. Lindsay Romeo R.N. Orthopedics HALLIE/emily P cc: documente d in this encounter Plan of Treatment Not on filedocumented as of this encounter Visit Diagnoses Not on filedocumented in this encounter
--- OUTSIDE RECORDS SUMMARY | ~2019-02-14 | XMS | Encounter Summary ---
Demographics + + + | Address | [address] | | | [place] [address] | + + + | Home Phone [...] | Author | [facility] | | | and [place] | + + + | Organization | [facility] | | | and [place] [...] Team Providers + +------+ + | Care Cardiac/Vascular Sonographer Name | Role | Phone | + +------+ + | Timothy Elmore | PCP | | + +------+ + Encounter Details +--------+ + + + + | Date | Type | Department | Care Team | Description | +--------+ + + + + | 08/04/ | [facility] | [facility] | Neo Pichardo MD | Hypertensive | | 2017 - | Encounter | MED CTR MEDICAL | [address] | emergency; Essential | | | | [address] | [place] | hypertension | | 08/07/ | | [place] [address] | [address] | | | 2016 | | [phone] | | | +--------+ + + + [...] were performed which did not suggest ac ouzinkie coronary syndrome. Echocardiogram was performed which showed [...] Specialty: Family Medicine Contact information: [address] [place] [id number] Discharge Medications New Medications Details acetaminophen 325 [...] signed by: Neo Pichardo MD, 08/07/2016 12:33 [facility] documented in this enc ounter Discharge Instructions [...] Mendoza MD - 08/06/2016 8:35 AM PDT [facility] HOSPITALIST PROGRESS NOTE Patient: Oneal Evans : 1955: Age: 60 y.o. MedRec: [id number] PCP: ASHANTI Esteves Admission date: 08/04/2016 Hospital [...] as outlined above. 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 MedRec: [id number] PCP: ASHANTI Esteves Admission date: 08/04/2016 Hospital [...] This is a preliminary report provided by [employer], CARLIE. A kevin brown report is available at [facility]. CT ABDOMEN AND PELVIS WITH CO NTRAST [...] as outlined above. Neo Pichardo 08/05/2016 9:29 [facility] documented in this enc ounter Plan [...] | | | | | | [facility] | | | | | | MEDICAL [...] + | [facility] | [address] | [place] | [phone] | | [facility] | | [address] | | | - LABORATORY | | [...] | | | FILTRATION | mL/min/1.73m2 | [facility] | | | LIBERIAN | RATE,ESTIMATED | | MEDICAL | | | | mL/min/1.06x7Pukz than | | CENTER - | | [...] [address] | [place] | [phone] | | [facility] | | [address] | | | - LABORATORY | | [...] [address] | [place] | [phone] | | [facility] | | [address] | | | - LABORATORY | | [...] | [facility] | [address] | [place] | [phone] | | [facility] | | [address] | | | - LABORATORY | | [...] [address] | [place] | [phone] | | [facility] | | [address] | | | - LABORATORY | | [...] 0.46 (L) | 0.60 - 1.30 | [facility] | | | | | mg/dL | [facility] | | | | | | MEDICAL | | | | | | CENTER - | | | | | | LABORATORY | | + + + + + + | eGFR if not | >60Comment: GLOMERULAR | >=60 | [facility] | | | | FILTRATION | mL/min/1.73m2 | [facility] [address] | | | LIBERIAN | RATE,ESTIMATED | | MEDICAL | | | | mL/min/1.18b7Hhyv than | | CENTER - | | [...] + | [facility] | [address] | [place] | [phone] | | [facility] | | [address] | | | - LABORATORY | | [...] [address] | [place] | [phone] | | [facility] | | [address] | | | - LABORATORY | | [...] | | | FILTRATION | mL/min/1.73m2 | [facility] | | | LIBERIAN | RATE,ESTIMATED | | MEDICAL | | | | mL/min/1.56v1Zxpm than | | CENTER - | | [...] | | | | | mg/dL | [facility] | | | | | | MEDICAL [...] [address] | [place] | [phone] | | [facility] | | [address] | | | - LABORATORY | | [...] 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 | | | [facility] Age 60 year(s) | | | Interpreting ERICK DUKE | | | Chef Under LEILANI | | | MD ERICK Gender Female Nurse | | | Stress Budget And Policy Analyst Procedure Type | | | of Study [...] Volume: 55.37 ml | | | EF Cvkvvywgi51% Left | | | Ventricle Diastolic Dimension: [...] Volume: 55.37 ml | | | EF Negkfvhxq32% | | | | | | Left [...] Number 458 | | [place] Patient Number [id number] Date of Study 08/05/2016 Visit Number | | [id number] Referring Physician JAZLNY MORILLO Number | | Date of 1955 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 | [place] | [phone] | | [facility] | | [address] | | | - LABORATORY | | [...] [address] | [place] | [phone] | | [facility] | | [address] | | | - LABORATORY | | [...] [address] | [place] | [phone] | | [facility] | | [address] | | | - LABORATORY | | [...] + | [facility] | [address] | [place] | [phone] | | [facility] | | [address] | | | - LABORATORY | | [...] | | | | | | [employer] | | | | | [...] + + | Performing | Address | City/State/[facility] | Phone Number | | Organization | | | | + + + + + | [facility] | [address] | [place] | [phone] | | [facility] | | [address] | | | - LABORATORY | | [...] mL/min/1.73m2 | [facility] [address] | | | LIBERIAN | RATE,ESTIMATED | | MEDICAL | | | | mL/min/1.65k9Djll than | | CENTER - | | [...] [address] | [place] | [phone] | | [facility] | | [address] | | | - LABORATORY | | [...] [address] | [place] | [phone] | | [facility] | | [address] | | | - LABORATORY | | [...] | | | | | | [employer] | | | | | [...] + | [facility] | [address] | [place] | [phone] | | [facility] | | [address] | | | - LABORATORY | | [...] | | | | JAMMIE ALONSO MD ([id number]) | | | | | | on [...] + | [facility] | [address] | [place] | [phone] | | [facility] | | [address] | | | - LABORATORY | | [...] | | | | JAMMIE ALONSO MD ([id number]) | | | | | | on [...] [address] | [place] | [phone] | | [facility] | | [address] | | | - LABORATORY | | [...] [address] | [place] | [phone] | | [facility] | | [address] | | | - LABORATORY | | [...] | | | | | | [employer] | | | | | [...] + | [facility] | [address] | [place] | [phone] | | [facility] | | [address] | | | - LABORATORY | | [...] [address] | [place] | [phone] | | [facility] | | [address] | | | - LABORATORY | | [...] + | [facility] | [address] | [place] | [phone] | | [facility] | | [address] | | | - LABORATORY | | [...] + | [facility] | [address] | [place] | [phone] | | [facility] | | [address] | | | - LABORATORY | | [...] | mL/min/1.73m2 | [facility] | | | LIBERIAN | RATE,ESTIMATED | | MEDICAL | | | | mL/min/1.10l4Ieqi than | | CENTER - | | [...] [address] | [place] | [phone] | | [facility] | | [address] | | | - LABORATORY | | [...] [address] | [place] | [phone] | | [facility] | | [address] | | | - LABORATORY | | [...] | | | | | | | [place] 08/05/16 at 1130, Initial | | | [...] | | | over 4 Hours, ONCE, [place] 08/05/16 | | | | | | [...]
--- OUTSIDE RECORDS SUMMARY | ~2019-02-14 | XMS | Encounter Summary ---
Demographics + + + | Address | [address] | | | [place] [address] | + + + | Home Phone [...] [place], | | | | | [place] [address] | | + + + + + Care Team Providers + +------+ + | Care Day Trader Name | Role | Phone | [...] Clinic | | | | | | [facility], [address] | | | | | | [place], [place] | | | | | | [address] | | | | | | [phone] | | | +--------+ + + + [...] of this encounter Progress Notes Interface, Log Loader In - 06/03/2006 2:00 AM PDT CLINIC [...] Ms. Evans has not been attending her muslim on Sundays but continues to go to local muslim meetings. She denies sedation, and nausea and [...] increased social function and participation in her sabianism group. John Mulligan M.D. Heading Maker, Anesthesiology Director, Pain Management Services PK:bony cc: CAROLINE YOON MD [facility] documented in this encounter Plan of Treatment Not on filedocumented as of this encounter Visit Diagnoses Not on filedocumented in this encounter
--- OUTSIDE RECORDS SUMMARY | ~2019-02-14 | XMS | Encounter Summary ---
Demographics + + + | Address | [address] | | | [place] [address] | + + + | Home Phone [...] [place], | | | | | [place] [address] | | + + + + + Care Team Providers + +------+ + | Care Supervisor Feed Mill Name | Role | Phone | + [...] | | | [facility], [address] | | | | | | [place], [place] | | | | | | [address] | | | | | | [phone] | | | +--------+ + + + [...] as of this encounter Progress Notes Interface, E Marketing Specialist In - 06/05/2006 1:00 AM PDT [...] Ms. Evans remains quite active with her [employer] organization oand is noticing that she has [...] outlets of her anger. John Mulligan M.D. Semiconductor Assembler, Anesthesiology Director, Pain Management Services HUI/fernando documented in this encounter Plan of Treatment Not on filedocumented as of this encounter Visit Diagnoses Not on filedocumented in this encounter"
--- OUTSIDE RECORDS SUMMARY | ~2019-02-14 | XMS | Encounter Summary ---
Demographics + + + | Address | [address] | | | [place] [address] | + + + | Home Phone [...] | [facility] | | | and [place] | + + + | Organization | [facility] | | | and [...] Team Providers + +------+ + | Care Branch Coordinator Name | Role | Phone | + +------+ + | Timothy Elmore | PCP | | + +------+ + Encounter Details +--------+ + + + + | Date | Type | Department | Care Team | Description | +--------+ + + + + | 08/04/ | [facility] | [facility] | Neo Pichardo MD | Hypertensive | | 2017 - | Encounter | MED CTR MEDICAL | [address] | emergency; Essential | | | | [address] | [place] | hypertension | | 08/07/ | | [place] [address] | [address] | | | 2016 | | [phone] | | | +--------+ + + + [...] were performed which did not suggest ac [place] coronary syndrome. Echocardiogram was performed which showed [...] Specialty: Family Medicine Contact information: [address] [place] [id number] Discharge Medications New Medications Details acetaminophen 325 [...] signed by: Neo Pichardo MD, 08/07/2016 12:33 [facility] documented in this enc ounter Discharge [...] Mendoza MD - 08/06/2016 8:35 AM PDT [facility] HOSPITALIST PROGRESS NOTE Patient: Oneal Evans : 1955: Age: 60 y.o. MedRec: [id number] PCP: ASHANTI Esteves Admission date: 08/04/2016 Hospital [...] as outlined above. 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 MedRec: [id number] PCP: ASHANTI Esteves Admission date: 08/04/2016 Hospital [...] This is a preliminary report provided by [employer], CARLIE. A kevin brown report is available at [facility]. CT ABDOMEN AND PELVIS WITH CO [...] as outlined above. Neo Pichardo 08/05/2016 9:29 [facility] documented in this enc ounter Plan [...] + | [facility] | [address] | [place] | [phone] | | [facility] | | [address] | | | - LABORATORY | | [...] | mL/min/1.73m2 | [facility] | | | [place] | RATE,ESTIMATED | | MEDICAL | | | | mL/min/1.21p9Ttvn than | | CENTER - | | [...] [address] | [place] | [phone] | | [facility] | | [address] | | | - LABORATORY | | [...] [address] | [place] | [phone] | | [facility] | | [address] | | | - LABORATORY | | [...] | [facility] | [address] | [place] | [phone] | | [facility] | | [address] | | | - LABORATORY | | [...] [address] | [place] | [phone] | | [facility] | | [address] | | | - LABORATORY | | [...] 0.46 (L) | 0.60 - 1.30 | [facility] | | | | | mg/dL | [facility] [address] | | | | | | MEDICAL | | | | | | CENTER - | | | | | | LABORATORY | | + + + + + + | eGFR if not | >60Comment: GLOMERULAR | >=60 | [facility] | | | | FILTRATION | mL/min/1.73m2 | [address] | | | [place] | RATE,ESTIMATED | | MEDICAL | | | | mL/min/1.62e2Qrbg than | | CENTER - | | [...] + | [facility] | [address] | [place] | [phone] | | [facility] | | [address] | | | - LABORATORY | | [...] [address] | [place] | [phone] | | [facility] | | [address] | | | - LABORATORY | | [...] | | | FILTRATION | mL/min/1.73m2 | [facility] | | | [place] | RATE,ESTIMATED | | MEDICAL | | | | mL/min/1.91m4Zfbu than | | CENTER - | | [...] | | | | | mg/dL | [facility] | | | | | | [...] [address] | [place] | [phone] | | [facility] | | [address] | | | - LABORATORY | | [...] [address] | [place] | [phone] | | [facility] | | [address] | | | - LABORATORY | | [...] 458 | | | [place] Patient Number [id number] Date of Study | | | 08/05/2016 Visit Number [id number] Accession | | | [id number] Referring Physician JAZLYN MORILLO Number | | | Date of 1955 Sales Marketing | | | [facility] Age 60 year(s) | | | Interpreting ERICK DUKE | | | Form Grader Operator [place] | | | MD ERICK Gender Female Nurse | | | Stress Mortgage Coordinator Procedure Type | | | of Study [...] Volume: 55.37 ml | | | EF Rjjaigwtb67% Left | | | Ventricle Diastolic Dimension: [...] Volume: 55.37 ml | | | EF Btqjcsazy30% | | | | | | Left [...] Number 458 | | [place] Patient Number [id number] Date of Study 08/05/2016 Visit Number | | [id number] Referring Physician JAZLYN MORILLO Number | | Date of 1955 Sales Marketing [facility] Age | | 60 year(s) Interpreting ERICK DUKE | | Form Grader Operator LEILANI SUAREZ MD Gender Female Nurse | [...] LA Volume: 55.37 ml EF | | Kgqyncabi31% Left Ventricle Diastolic Dimension: 5.52 cm Systolic [...] LA Volume: 55.37 ml | | EF Xnrqytbdc10% | | | | Left Ventricle | [...] [address] | [place] | [phone] | | [facility] | | [address] | | | - LABORATORY | | [...] [address] | [place] | [phone] | | [facility] | | [address] | | | - LABORATORY | | [...] [address] | [place] | [phone] | | [facility] | | [address] | | | - LABORATORY | | [...] + | [facility] | [address] | [place] | [phone] | | [facility] | | [address] | | | - LABORATORY | | [...] | | | | | | [employer] | | | | | [...] + + | Performing | Address | City/State[facility] | Phone Number | | Organization | | | | + + + + + | [facility] | [address] | [place] | [phone] | | [facility] | | [address] | | | - LABORATORY | | [...] mL/min/1.73m2 | [address] | | | [place]IZ[place] | RATE,ESTIMATED | | MEDICAL | | | | mL/min/1.14z5Dydt than | | CENTER - | | [...] [address] | [place] | [phone] | | [facility] | | [address] | | | - LABORATORY | | [...] [address] | [place] | [phone] | | [facility] | | [address] | | | - LABORATORY | | [...] | | | | | | [employer] | | | | | [...] + | [facility] | [address] | [place] | [phone] | | [facility] | | [address] | | | - LABORATORY | | [...] | | | | JAMMIE ALONSO MD ([id number]) | | | | | | on [...] + | [facility] | [address] | [place] | [phone] | | [facility] | | [address] | | | - LABORATORY | | [...] | | | | JAMMIE ALONSO MD ([id number]) | | | | | | on [...] [address] | [place] | [phone] | | [facility] | | [address] | | | - LABORATORY | | [...] [address] | [place] | [phone] | | [facility] | | [address] | | | - LABORATORY | | [...] | | | | | | [employer] | | | | | [...] + | [facility] | [address] | [place] | [phone] | | [facility] | | [address] | | | - LABORATORY | | [...] [address] | [place] | [phone] | | [facility] | | [address] | | | - LABORATORY | | [...] + | [facility] | [address] | [place] | [phone] | | [facility] | | [address] | | | - LABORATORY | | [...] + | [facility] | [address] | [place] | [phone] | | [facility] | | [address] | | | - LABORATORY | | [...] | mL/min/1.73m2 | [facility] | | | [place] | RATE,ESTIMATED | | MEDICAL | | | | mL/min/1.08m1Cwxb than | | CENTER - | | [...] [address] | [place] | [phone] | | [facility] | | [address] | | | - LABORATORY | | [...] | [address] | [place] | [phone] | | [facility] | | [address] | | | - LABORATORY | | [...] | | | | | | | [place] 08/05/16 at 1130, Initial | | | [...] | | | over 4 Hours, ONCE, [place] 08/05/16 | | | | | | [...]
--- OUTSIDE RECORDS SUMMARY | ~2019-02-14 | XMS | Encounter Summary ---
Demographics + + + | Address | [address] | | | [place] [address] | + + + | Home Phone [...] [place], | | | | | [place] [address] | | + + + + + Care Team Providers + +------+ + | Care Dipper Fish Name | Role | Phone | + [...] Clinic | | | | | | [facility], [address] | | | | | | [place], [place] | | | | | | [address] | | | | | | [phone] | | | +--------+ + + + [...] as of this encounter Progress Notes Interface, Binding Machine Operator In - 06/03/2006 2:00 AM PDT CLINIC [...] Ms. Evans has not been attending her caodaism on Sundays but continues to go to local caodaism meetings. She denies sedation, and nausea and [...] increased social function and participation in her mormon group. John Mulligan M.D. Workforce Investment Act Career Manager, Anesthesiology Director, Pain Management Services PK:bony cc: CAROLINE YOON MD [facility] documented in this encounter Plan of Treatment Not on filedocumented as of this encounter Visit Diagnoses Not on filedocumented in this encounter
--- OUTSIDE RECORDS SUMMARY | ~2019-02-14 | XMS | Encounter Summary ---
Demographics + + + | Address | [address] | | | [place] [address] | + + + | Home Phone [...] | Author | [facility] | | | and [place] | + + + | Organization | [facility] | | | and [...] Team Providers + +------+ + | Care Ui Lead Developer Name | Role | Phone | [...] | | 2014 | | [place] | [address] | | | | | ENDOCRINOLOGY [address] | [address] | | | | | [address] [place] | [place] [address] | | | | | [address] | [phone] | | | | | [address] | | | | | | [phone] | | | +--------+ + + + [...] | CORE | | | | [place] [address] | | LABORATORY | | | | [...] + + | KARLOS BARNEY | [address] | [place] [address] | [phone] | | CORE LABORATORY (I) | | [...] | | CORE | | | | [address] | | LABORATORY | | | | [...] + + | [facility] [place] | [address] | [place] [address] | [phone] | | CORE LABORATORY (I) | | | | + + + + + documented in this encounter Visit Diagnoses + + | Diagnosis | + + | Diarrhea | + + documented in this encounter"
--- OUTSIDE RECORDS SUMMARY | ~2019-02-14 | XMS | Encounter Summary ---
Demographics + + + | Address | [address] | | | [place] [address] | + + + | Home Phone [...] [place], | | | | | [place] [address] | | + + + + + Care Team Providers + +------+ + | Care Web Marketing Specialist Name | Role | Phone | [...] as of this encounter Progress Notes Interface, Coffee Attendant In - 02/14/2006 5:12 AM PSTCLINIC DATE: [...]
--- OUTSIDE RECORDS SUMMARY | ~2019-02-14 | XMS | Encounter Summary ---
Demographics + + + | Address | [address] | | | [place] [address] | + + + | Home Phone [...] + + + | Author | [facility] | | | and [place] | + + + | Organization | [facility] | | | and [...] Team Providers + +------+ + | Care Plant Ecologist Name | Role | Phone | + [...] | | 2014 | | [place] | [address] | | | | | ENDOCRINOLOGY [address] | [address] | | | | | [address] | [place] [address] | | | | | [address] | [phone] | | | | | [address] | | | | | | [phone] | | | +--------+ + + + [...] | CORE | | | | [place] [address] | | LABORATORY | | | | [...] | KARLOS BARNEY | [address] | [place] [address] | [phone] | | CORE LABORATORY (I) | | [...] | | CORE | | | | [address] | | LABORATORY | | | | [...] | [facility]ENCE [place] | [address] | [place] [address] | [phone] | | CORE LABORATORY (I) | | | | + + + + + documented in this encounter Visit Diagnoses + + | Diagnosis | + + | Diarrhea | + + documented in this encounter"
--- OUTSIDE RECORDS SUMMARY | ~2019-02-14 | XMS | Encounter Summary ---
Demographics + + + | Address | [address] | | | [place] [address] | + + + | Home Phone [...] [place], | | | | | [place] [address] | | + + + + + Care Team Providers + +------+ + | Care Can Doffer Name | Role | Phone | + [...] [id number] | | | | | | [place], [place] | | | | | | [address] | | | | | | [phone] | | | +--------+ + + + [...] + + + | [facility] | [address] | [place] [address] | | | PATHOLOGY | [address] | | | + + + + + documented in this encounter Visit Diagnoses Not on filedocumented in this encounter"
--- OUTSIDE RECORDS SUMMARY | ~2019-02-14 | XMS | Encounter Summary ---
Demographics + + + | Address | [address] | | | [place] [address] | + + + | Home Phone [...] Team Providers + +------+ + | Care Beef Farmer Name | Role | Phone | [...] as of this encounter Progress Notes Interface, Irrigation Installation Specialist In - 02/09/2006 5:05 AM PSTCLINIC DATE: [...] seeking drugs at numerous medical centers throughout [facility] and [facility]. 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 I contacted [facility] and [facility] in [place] (telephone # [phone] and [phone] respectively) to warn them of her potential misuse of medication. Moreover, I am concerned because she has a prescription for MS Contin in hand which she is supposed to fill for June and I wanted to make sure they knew to confiscate that prescription and not have it filled. Lastly, I have spoken with Nelly Hamilton, our clinical social and human services assistant, who has taken the task in hand as far as alerting Social Security and Medicare of potential fraud. Hui Milton M.D. TORI/kiah cc: Doris Maurice [facility] Internal Medicine Miranda García [facility] Internal Medicine Andria Hamilton [facility] Internal Medicine Kait Oneal [facility] Wallace Szymanski M.D. [facility] Internal Medicine 5 :05 AM PSTdocumented in this encounter Plan of Treatment Not on filedocumented as of this encounter Visit Diagnoses Not on filedocumented in this encounter"
--- OUTSIDE RECORDS SUMMARY | ~2019-02-14 | XMS | Encounter Summary ---
Demographics + + + | Address | [address] | | | [place] [address] | + + + | Home Phone [...] Author | [facility] | | | and [place] | + + + | Organization | [facility] | | | and [place] [...] + +------+ + | Care In Flight Refueling Craftsman Name | Role | Phone | + +------+ + | Timothy Elmore | PCP | | + +------+ + Reason for Visit + + + | Reason | Comments | + + + | Establish Care | GOLD NIB GRINDER : Lumbar Spine : Referred by PCP [...] | | and other | [place] | [address] | | | | | examinations | [address] | Phone: | | | | | of body | Phone: | [phone] | | | | | structure | [phone] | Fax: | | | | | Procedures | | [phone] | | | | | CSJ-06/29 | | | +--------+--------+ + + + + Encounter Details +--------+---------+ + + + | Date | Type | Department | Care Team | Description | +--------+---------+ + + + | 08/09/ | Office | [facility] | Tapan Bragg | Left foot drop | | 2015 | Visit | [facility] | MD Felisa [address] | (Primary Dx) | | | | [address] [facility] | [address] [place], | | | | | [address] [place] | [place] | | | | | [address] | [phone] | | | | | [phone] | | | +--------+---------+ + + + [...]
--- OUTSIDE RECORDS SUMMARY | ~2019-02-14 | XMS | Encounter Summary ---
Demographics + + + | Address | [address] | | | [place] [address] | + + + | Home Phone [...] [place], | | | | | [place] [address] | | + + + + + Care Team Providers + +------+ + | Care Commissary Superintendent Name | Role | Phone | + [...] of this encounter Progress Notes Interface, Rock Star In - 02/23/2006 5:02 AM PSTCLINIC DATE: [...] M.D. Resident, Internal Medicine Wallace Szymanski M.D. Angio Technologist, Internal Medicine TORI:mau d ocumented in this encounter Plan of Treatment Not on filedocumented as of this encounter Visit Diagnoses Not on filedocumented in this encounter
--- OUTSIDE RECORDS SUMMARY | ~2019-02-14 | XMS | Encounter Summary ---
Demographics + + + | Address | [address] | | | [place] [address] | + + + | Home Phone [...] [place], | | | | | [place] [address] | | + + + + + Care Team Providers + +------+ + | Care Practice Professional Name | Role | Phone | + [...] as of this encounter Progress Notes Interface, Ep Technologist In - 02/21/2006 3:06 AM PSTCLINIC DATE: [...] M.D. Resident, Internal Medicine Wallace Szymanski M.D. Animal Behaviorist, Internal Medicine TORI/joshua d ocumented in this encounter Plan of Treatment Not on filedocumented as of this encounter Visit Diagnoses Not on filedocumented in this encounter"
--- OUTSIDE RECORDS SUMMARY | ~2019-02-14 | XMS | Encounter Summary ---
Demographics + + + | Address | [address] | | | [place] [address] | + + + | Home Phone [...] [place], | | | | | [place] [address] | | + + + + + Care Team Providers + +------+ + | Care Topper Press Operator Name | Role | Phone | [...] as of this encounter Progress Notes Interface, Family Practitioner In - 02/21/2006 3:06 AM PSTCLINIC DATE: [...] M.D. Resident, Internal Medicine Wallace Szymanski M.D. Secondary School Principal, Internal Medicine TORI/niles d ocumented in this encounter Plan of Treatment Not on filedocumented as of this encounter Visit Diagnoses Not on filedocumented in this encounter"
--- OUTSIDE RECORDS SUMMARY | ~2019-02-14 | XMS | Encounter Summary ---
Demographics + + + | Address | [address] | | | [place] [address] | + + + | Home Phone [...] [place], | | | | | [place] [address] | | + + + + + Care Team Providers + +------+ + | Care Golf Course Mechanic Name | Role | Phone | + +------+ + PCP | Unavailable | + +------+ + Encounter Details +--------+ + + + + | Date | Type | Department | Care Team | Description | +--------+ + + + + | 06/26/ | Office | General Internal | Note, Outpatient | Progress Note | | 1994 | Visit-Trans | Medicine [address] | Clinic | | | | [place] | Arthur [address] | | | | | | Mailcode: L475 | | | | | | Outpatient Clinic | | | | | | [facility], [address] | | | | | | [place], [place] | | | | | | [address] | | | | | | [phone] | | | +--------+ + + + [...] as of this encounter Progress Notes Interface, Delivery Director In - 06/06/2006 5:07 AM PDT CLINIC [...] addition, she remains active in her local islam and is in the process of moving [...] 2. Bladder dysfunction, resolved. John Mulligan M.D. Patient Accounts Manager, Anesthesiology Director, Pain Management Services HUI /efren A documented in this encounter Plan of Treatment Not on filedocumented as of this encounter Visit Diagnoses Not on filedocumented in this encounter"
--- OUTSIDE RECORDS SUMMARY | ~2019-02-14 | XMS | Encounter Summary ---
Demographics + + + | Address | [address] | | | [place] [address] | + + + | Home Phone [...] + + + | Author | [facility] | | | and [place] | + + + | Organization | [facility] | | | [...] Team Providers + +------+ + | Care Bereavement Counselor Name | Role | Phone | [...] | | [address] | [place] [address] | | | | | [address] [place] | [phone] | | | | | [address] | | | | | | [phone] | | | +--------+ + + + [...]
--- OUTSIDE RECORDS SUMMARY | ~2019-02-14 | XMS | Encounter Summary ---
Demographics + + + | Address | [address] | | | [place] [address] | + + + | Home Phone [...] [place], | | | | | [place] [address] | | + + + + + Care Team Providers + +------+ + | Care Car Wash Attendant Name | Role | Phone | + +------+ + PCP | Unavailable | + +------+ + Encounter Details +--------+ + + + + | Date | Type | Department | Care Team | Description | +--------+ + + + + | 07/24/ | Office | General Internal | Note, Outpatient | Progress Note | | 1994 | Visit-Trans | Medicine [address] | Clinic | | | | [place] | Arthur [facility]ger | | | | | | Mailcode: L475 | | | | | | Outpatient Clinic | | | | | | [facility], [address] | | | | | | [place], [place] | | | | | | [address] | | | | | | [phone] | | | +--------+ + + + [...] of this encounter Progress Notes Interface, Sales Clerk Supervisor In - 06/05/2006 1:00 AM PDT [...] remained quite high including continued attendance of yazdanism and working on uepkjo-atf-afewb activities. She denies changes in bladder or [...] 2. Bladder dysfunction, resolved. John Mulligan M.D. Wafer Fabricator, Anesthesiology Director, Pain Management Services PK:bony documented in this encounter Plan of Treatment Not on filedocumented as of this encounter Visit Diagnoses Not on filedocumented in this encounter"
--- OUTSIDE RECORDS SUMMARY | ~2019-02-14 | XMS | Encounter Summary ---
Demographics + + + | Address | [address] | | | [place] [address] | + + + | Home Phone [...] + + + | Author | [facility] | | | and [place] | + + + | Organization | [facility] | | | and [...] Team Providers + +------+ + | Care Php Lamp Developer Name | Role | Phone | [...] | [address] | [address] | pulmonary disease, | | | | [place] | [place] | unspecified COPD | | | | [address] | [address] | type (HCC) (Primary | | | | [phone] | [phone] | Dx) | +--------+ + + + [...]
--- OUTSIDE RECORDS SUMMARY | ~2019-02-14 | XMS | Encounter Summary ---
Demographics + + + | Address | [address] | | | [place] [address] | + + + | Home Phone [...] [place], | | | | | [place] [address] | | + + + + + Care Team Providers + +------+ + | Care Screen Room Operator Name | Role | Phone | [...] as of this encounter Progress Notes Interface, Senior Oracle Soa Developer In - 02/12/2006 3:04 AM PSTCLINIC [...]
--- OUTSIDE RECORDS SUMMARY | ~2019-02-14 | XMS | Encounter Summary ---
Demographics + + + | Address | [address] | | | [place] [address] | + + + | Home Phone [...] Author | [facility] | | | and [place] | + + + | Organization | [facility] | [...] Team Providers + +------+ + | Care Cat Hooker Name | Role | Phone | + [...] + | 06/21/ | Telephone | [facility] | Jacklyn, | Referral (Follow up) | | 2016 | | [facility] | MD [address] | (LT Knee MR (PRMCE) | | | | [address] | -- APPROVED); Other | | | | [address] [place] | [place] [address] | (See comments) | | | | [address] | [phone] | | | | | [phone] | | | +--------+ + + + [...]
--- OUTSIDE RECORDS SUMMARY | ~2019-02-14 | XMS | Encounter Summary ---
Demographics + + + | Address | [address] | | | [place] [address] | + + + | Home Phone [...] [place], | | | | | [place] [address] | | + + + + + Care Team Providers + +------+ + | Care Vest Backer Name | Role | Phone | + [...] of this encounter Progress Notes Interface, Retail Beauty Specialist In - 02/23/2006 5:02 AM PSTCLINIC [...] M.D. Resident, Internal Medicine Wallace Szymanski M.D. Crepe Sole Scourer, Internal Medicine TORI/JENAE/estrellita d ocumented in this encounter Plan of Treatment Not on filedocumented as of this encounter Visit Diagnoses Not on filedocumented in this encounter"
--- OUTSIDE RECORDS SUMMARY | ~2019-02-14 | XMS | Encounter Summary ---
Demographics + + + | Address | [address] | | | [place] [address] | + + + | Home Phone [...] [place], | | | | | [place] [address] | | + + + + + Care Team Providers + +------+ + | Care General Handling Supervisor Name | Role | Phone | [...]
--- OUTSIDE RECORDS SUMMARY | ~2019-02-14 | XMS | Encounter Summary ---
Demographics + + + | Address | [address] | | | [place] [address] | + + + | Home Phone [...] | Author | [facility] | | | and [place] | + + + | Organization | [facility] [...] Team Providers + +------+ + | Care Poultry Farmworker Name | Role | Phone | + [...] + | 06/15/ | Telephone | [facility] | Jacklyn, | Appointment (Pain in | | 2016 | | [facility] | MD [address] | Left leg -- See | | | | [address] | comment) | | | | [address] | [place] | | | | | [address] | [phone] | | | | | [phone] | | | +--------+ + + + [...]
--- OUTSIDE RECORDS SUMMARY | ~2019-02-14 | XMS | Clinical Summary ---
Demographics + + + | Address | [address] | | | [place] [address] | + + + | Home Phone [...] [place], | | | | | [place] [address] | | + + + + + Care Team Providers + +------+ + | Care Blister Packing Machine Tender Name | Role | Phone | + +------+ + PCP | Unavailable | + +------+ + Source Comments MARY is fully live on both [facility]ulatory and [facility] InPatient.[facility] Allergies Not on File Medications [...]
--- OUTSIDE RECORDS SUMMARY | ~2019-02-14 | XMS | Encounter Summary ---
Demographics + + + | Address | [address] | | | [place] [address] | + + + | Home Phone [...] [place], | | | | | [place] [address] | | + + + + + Care Team Providers + +------+ + | Care Store Mgr Name | Role | Phone | + [...] [id number] | | | | | | [place], [place] | | | | | | [address] | | | | | | [phone] | | | +--------+ + + + [...] OF | [address] | [place] [address] | | | PATHOLOGY | [address] | | | + + + + + documented in this encounter Visit Diagnoses Not on filedocumented in this encounter"
--- OUTSIDE RECORDS SUMMARY | ~2019-02-14 | XMS | Encounter Summary ---
Demographics + + + | Address | [address] | | | [place] [address] | + + + | Home Phone [...] [place], | | | | | [place] [address] | | + + + + + Care Team Providers + +------+ + | Care Compliance Vice President Name | Role | Phone | + [...]
--- OUTSIDE RECORDS SUMMARY | ~2019-02-14 | XMS | Encounter Summary ---
Demographics + + + | Address | [address] | | | [place] [address] | + + + | Home Phone [...] + + + | Author | [facility] | | | and [place] | + + + | Organization | [facility] | [...] Team Providers + +------+ + | Care Architecture Department Chair Name | Role | Phone | + [...] [id number] | | | | | [address] | [place] [address] | | | | | [address] [place] | [phone] | | | | | [address] | | | | | | [phone] | | | +--------+ + + + [...] | CORE | | | | [place] [address] | | LABORATORY | | | | [...] [place] | [address] | [place] [address] | [phone] | | CORE LABORATORY (I) | | [...] (I) | | | | [place] [address] | | | | + + + + + + + + | Specimen | + + | Blood specimen | | (specimen) | + + + + + + + | Performing | Address | City/State/Zipcode | Phone Number | | Organization | | | | + + + + + | [place] | [address] | [place] [address] | [phone] | | CORE LABORATORY (I) | | [...] [place] | [address] | [place] [address] | [phone] | | CORE LABORATORY (I) | | | | + + + + + documented in this encounter Visit Diagnoses + + | Diagnosis | + + | 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
--- OUTSIDE RECORDS SUMMARY | ~2019-02-14 | XMS | Encounter Summary ---
Demographics + + + | Address | [address] | | | [place] [address] | + + + | Home Phone [...] Author + + + | Author | [facility] | | | and [place] | + + + | Organization | [facility] | | | and [place] [...] Team Providers + +------+ + | Care Tool Grinder Operator External Name | Role | Phone | + [...] | | | | | y | [address] | | | | | | Procedures | Phone: | | | | | | evaluate and | [phone] | | | | | | treat | | | +--------+--------+ + + + + Encounter Details +--------+---------+ + + + | Date | Type | Department | Care Team | Description | +--------+---------+ + + + | 12/14/ | Office | [facility] [place] [facility] | Joe [place], | Pancreatic | | 2015 | Visit | [place] | [address] | insufficiency | | | | ENDOCRINOLOGY [address] | [address] | (Primary Dx); | | | | [address] | [place] [address] | Diarrhea; Loss of | | | | [address] [place], [place] | [phone] | appetite; Weight | | | | [address] | | loss | | | | [phone] | | | +--------+---------+ + + + [...] some workup that has been done at [facility]. I received a note from a surgical evaluat ion she had at [facility]. She has also had gastroenterology evaluation at [facility] as well, I do not have [...] syndrome. Furthermore, I would suggest to her [facility] provider that he screen and evaluate [...] | | CORE | | | | [place] [address] | | LABORATORY | | | | [...] + + | KARLOS [place] | [address] | [place] [address] | [phone] | | CORE LABORATORY (I) | | [...] | | | | | [place] | | | | | | | [...] | [address] | [place] [address] | [phone] | | CORE LABORATORY (I) | | [...] | | CORE | | | | [address] | | LABORATORY | | | | [...] + + | [place] | [address] | [place] [address] | [phone] | | CORE LABORATORY (I) | | [...] | | (I) | | | | [facility].Performed by | | | | | [...] | [address] | [place] [address] | [phone] | | CORE LABORATORY (I) | | [...] | CORE | | | | [place] [address] | | LABORATORY | | | | [...] + + | KARLOS BAR[place] | [address] | [place] [address] | [phone] | | CORE LABORATORY (I) | | [...] | | CORE | | | | [address] | | LABORATORY | | | | [...] + + | KARLOS BAR[place] | [address] | [place] [address] | [phone] | | CORE LABORATORY (I) | | [...]
--- OUTSIDE RECORDS SUMMARY | ~2019-02-14 | XMS | Encounter Summary ---
Demographics + + + | Address | [address] | | | [place] [address] | + + + | Home Phone [...] [place], | | | | | [place] [address] | | + + + + + Care Team Providers + +------+ + | Care Ophthalmology Assistant Name | Role | Phone | + +------+ + PCP | Unavailable | + +------+ + Encounter Details +--------+ + + + + | Date | Type | Department | Care Team | Description | +--------+ + + + + | 01/01/ | Office | UNKNOWN DEPARTMENT | Note, Outpatient | Progress Note | | 1993 | Visit-Trans | [address] | Clinic | | | | [place] | [address] | | | | | | [place], [place] | | | | | | [address] | | | +--------+ + + + [...] as of this encounter Progress Notes Interface, Accountant Budget In - 06/14/2006 5:08 AM PDT CLINIC [...] after the above studies. Faisal Grijalva M.D. Welding Machine Operator Submerged Arc, Neurology JQ:bony cc: DICK ACOSTA MD [address] [address] documented in this encounter Plan of Treatment Not on filedocumented as of this encounter Visit Diagnoses Not on filedocumented in this encounter"
--- OUTSIDE RECORDS SUMMARY | ~2019-02-14 | XMS | Encounter Summary ---
Demographics + + + | Address | [address] | | | [place] [address] | + + + | Home Phone | | + + + | Preferred Language | Unknown | + + + | Marital Status | Single | + + + | Mu-Ism Affiliation | Unknown | + + + | Race | Unknown | + + + | Ethnic Group | Unknown | + + + Author + + + | Author | [facility] | | | and [place] | + + + | Organization | [facility] | [...] Team Providers + +------+ + | Care Social Worker Masters Name | Role | Phone | + [...] + | 08/09/ | Telephone | [facility] | Tapan Bragg | Appointment (today's | | 2015 | | [facility] | MD Felisa [address] | appt) | | | | [address] [facility] | [address] [place], | | | | | [address] [place] | [place] | | | | | [address] | [phone] | | | | | [phone] | | | +--------+ + + + [...]
--- OUTSIDE RECORDS SUMMARY | ~2019-02-14 | XMS | Encounter Summary ---
Demographics + + + | Address | [address] | | | [place] [address] | + + + | Home Phone [...] [place], | | | | | [place] [address] | | + + + + + Care Team Providers + +------+ + | Care Fight Manager Name | Role | Phone | + +------+ + PCP | Unavailable | + +------+ + Encounter Details +--------+ + + + + | Date | Type | Department | Care Team | Description | +--------+ + + + + | 06/26/ | Office | General Internal | Note, Outpatient | Progress Note | | 1994 | Visit-Trans | Medicine [address] | Clinic | | | | [place] | Arthur [facility] | | | | | | Mailcode: L475 | | | | | | Outpatient Clinic | | | | | | [facility], [address] | | | | | | [place], [place] | | | | | | [address] | | | | | | [phone] | | | +--------+ + + + [...] of this encounter Progress Notes Interface, Inspector Quality Assurance In - 06/06/2006 5:07 AM PDT CLINIC [...] addition, she remains active in her local [employer] and is in the process of moving [...] 2. Bladder dysfunction, resolved. John Mulligan M.D. Telephonic Nurse Case Manager, Anesthesiology Director, Pain Management Services HUI /efren A documented in this encounter Plan of Treatment Not on filedocumented as of this encounter Visit Diagnoses Not on filedocumented in this encounter"
--- OUTSIDE RECORDS SUMMARY | ~2019-02-14 | XMS | Encounter Summary ---
Demographics + + + | Address | [address] | | | [place] [address] | + + + | Home Phone [...] + + + | Author | [facility] | | | and [place] | + + + | Organization | [facility] | [...] Providers + +------+ + | Care Supervisor Pipeline Maintenance Name | Role | Phone | + [...] | | 2015 | | [place] | [address] | level (HCC) | | | | ENDOCRINOLOGY [address] | [address] | | | | | [address] | [place] [address] | | | | | [address] [place] | [phone] | | | | | [address] | | | | | | [phone] | | | +--------+ + + + [...] | CORE | | | | [place] [address] | | LABORATORY | | | | [...] | [address] | [place] [address] | [phone] | | [facility] (I) | | [...] (I) | | | | [place] [address] | | | | + + + + + + + + | Specimen | + + | Blood specimen | | (specimen) | + + + + + + + | Performing | Address | City/State/Zipcode | Phone Number | | Organization | | | | + + + + + | [place] | [address] | [place] [address] | [phone] | | [facility] (I) | | [...] | (I) | | | | [facility].Performed by | | | | | [...] | [address] | [place] [address] | [phone] | | [facility] (I) | | | | + + + + + documented in this encounter Visit Diagnoses + + | Diagnosis | + + | Low serum cortisol level (HCC) Glucocorticoid deficiency | + + documented in this encounter"
--- OUTSIDE RECORDS SUMMARY | ~2019-02-14 | XMS | Encounter Summary ---
Demographics + + + | Address | [address] | | | [place] [address] | + + + | Home Phone [...] [place], | | | | | [place] [address] | | + + + + + Care Team Providers + +------+ + | Care Curtain Stretcher Name | Role | Phone | + [...] as of this encounter Progress Notes Interface, Tmh Teacher In - 02/21/2006 3:06 AM PSTCLINIC [...] M.D. Resident, Internal Medicine Wallace Szymanski M.D. Camp Recreation Specialist, Internal Medicine TORI/joshua d ocumented in this encounter Plan of Treatment Not on filedocumented as of this encounter Visit Diagnoses Not on filedocumented in this encounter"
--- OUTSIDE RECORDS SUMMARY | ~2019-02-14 | XMS | Encounter Summary ---
Demographics + + + | Address | [address] | | | [place] [address] | + + + | Home Phone [...] Author | [facility] | | | and [place] | + + + | Organization | [facility] | | | and [place] [...] Team Providers + +------+ + | Care Climatology Teacher Name | Role | Phone | + +------+ + | Timothy Elmore | PCP | | + +------+ + Encounter Details +--------+ + + + + | Date | Type | Department | Care Team | Description | +--------+ + + + + | 11/28/ | Transcribed | PULMONARY FUNCTION | Timotyh Elmore PA | Chronic obstructive | | 2016 | Orders | [address] | [address] | pulmonary disease, | | | | [place] | [place] | unspecified COPD | | | | [address] | [address] | type (HCC) (Primary | | | | [phone] | [phone] | Dx) | +--------+ + + + [...]
--- OUTSIDE RECORDS SUMMARY | ~2019-02-14 | XMS | Encounter Summary ---
Demographics + + + | Address | [address] | | | [place] [address] | + + + | Home Phone [...] [place], | | | | | [place] [address] | | + + + + + Care Team Providers + +------+ + | Care Plant Maintenance Worker Name | Role | Phone | [...] Clinic | | | | | | [facility], [address] | | | | | | [place], [place] | | | | | | [address] | | | | | | [phone] | | | +--------+ + + + [...] as of this encounter Progress Notes Interface, Fuel Handler In - 06/01/2006 3:00 AM PDT CLINIC [...] in the Pain Clinic. Faisal Grijalva M.D. Help Desk Representative, Neurology JQ/wtgarfield documented in this encounter Plan of Treatment Not on filedocumented as of this encounter Visit Diagnoses Not on filedocumented in this encounter"
--- OUTSIDE RECORDS SUMMARY | ~2019-02-14 | XMS | Encounter Summary ---
Demographics + + + | Address | [address] | | | [place] [address] | + + + | Home Phone [...] [place], | | | | | [place] [address] | | + + + + + Care Team Providers + +------+ + | Care Cobol Mainframe Developer Name | Role | Phone | + +------+ + PCP | Unavailable | + +------+ + Encounter Details +--------+ + + + + | Date | Type | Department | Care Team | Description | +--------+ + + + + | 07/24/ | Office | General Internal | Note, Outpatient | Progress Note | | 1994 | Visit-Trans | Medicine [address] | Clinic | | | | [place] | Arthur Barger | | | | | | Mailcode: L475 | | | | | | Outpatient Clinic | | | | | | [facility], [address] | | | | | | [place], [place] | | | | | | [address] | | | | | | [phone] | | | +--------+ + + + [...] of this encounter Progress Notes Interface, Sales Recruiting Coordinator In - 06/05/2006 1:00 AM PDT CLINIC [...] remained quite high including continued attendance of shinto and working on ocyggj-xud-fpwyi activities. She denies changes in bladder or [...] 2. Bladder dysfunction, resolved. John Mulligan M.D. Clinical Documentation Specialist, Anesthesiology Director, Pain Management Services PK:bony documented in this encounter Plan of Treatment Not on filedocumented as of this encounter Visit Diagnoses Not on filedocumented in this encounter"
--- OUTSIDE RECORDS SUMMARY | ~2019-02-14 | XMS | Encounter Summary ---
Demographics + + + | Address | [address] | | | [place] [address] | + + + | Home Phone [...] [place], | | | | | [place] [address] | | + + + + + Care Team Providers + +------+ + | Care Hand Marker Name | Role | Phone | + [...] as of this encounter Progress Notes Interface, Toll Test Worker In - 02/09/2006 5:05 AM PSTCLINIC DATE: [...] at numerous medical centers throughout [facility] and [facility]. 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 I contacted [facility] and [facility] in [place] (telephone # [phone] and [phone] respectively) to warn them of her potential misuse of medication. Moreover, I am concerned because she has a prescription for MS Contin in hand which she is supposed to fill for June and I wanted to make sure they knew to confiscate that prescription and not have it filled. Lastly, I have spoken with Nelly Hamilton, our clinical social services director, who has taken the task in hand as far as alerting Social Security and Medicare of potential fraud. Hui Milton M.D. TORI/kiah cc: Doris Maurice [facility] Internal Medicine Miranda García [facility] Internal Medicine Andria Hamilton [facility] Internal Medicine [facility] Wallace Szymanski M.D. [facility] Internal Medicine 5 :05 AM PSTdocumented in this encounter Plan of Treatment Not on filedocumented as of this encounter Visit Diagnoses Not on filedocumented in this encounter"
--- OUTSIDE RECORDS SUMMARY | ~2019-02-14 | XMS | Encounter Summary ---
Demographics + + + | Address | [address] | | | [place] [address] | + + + | Home Phone [...] [place], | | | | | [place] [address] | | + + + + + Care Team Providers + +------+ + | Care Welding Machine Operator Helper Arc Name | Role | Phone | + [...] as of this encounter Progress Notes Interface, Butter Liquefier In - 02/23/2006 5:02 AM PSTCLINIC DATE: [...] years ago when she read about an [facility] clinic, and presented by self-referral [...] medication in September when she moved from [place] to [place] and switched providers. Patient states that since [...] Patient was seen by Dr. Browning in [place], [place], at which time she was given [...] Recommended group therapy. Patient is covered through [facility] and she will investigate possible group therapy at the [place] [facility] system. Patient was seen and interviewed with Dr. Anabelle Garcia. Frederic Koch M.D. Resident, Internal Medicine Anabelle Garcia M.D. Auto Tune Up Mechanic, Psychiatry ELDA/ruby d ocumented in this encounter Plan of Treatment Not on filedocumented as of this encounter Visit Diagnoses Not on filedocumented in this encounter"
--- OUTSIDE RECORDS SUMMARY | ~2019-02-14 | XMS | Encounter Summary ---
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 [...] | implant | [address] | Surg [address] | | | | | status | [place] | [address] | | | | | | [address] | [place] | | | | | | [place] | [place] | | | | | | [place] | [address] | | | | | | [address] | Phone: | | | | | | Phone: | [phone] | | | | | | [phone] | Fax: | | | | | | | [phone] | +--------+--------+ + + + + Encounter Details +--------+---------+ + + + | Date | Type | Department | Care Team | Description | +--------+---------+ + + + | 09/20/ | Office | [facility] | Wesley Mckeon, | Breast implant | | 2015 | Visit | [place] [address] | [place] [address] | opal, initial | | | | [address] | [place] | encounter (Primary | | | | [place] | [place] [address] | Dx) | | | | [address] | [phone] | | | | | [phone] | | | +--------+---------+ + + + [...] this encounter Progress Notes Pasquale Granados V, ROOM SERVICE CLERK - 09/21/2015 3:20 PM PDTFormatting of this [...] Alcohol Use: No The patient lives in [place]. Family History: Family History Problem Relation Age [...]
--- OUTSIDE RECORDS SUMMARY | ~2019-02-14 | XMS | Encounter Summary ---
Demographics + + + | Address | [address] | | | [place] [address] | + + + | Home Phone [...] [place], | | | | | [place] [address] | | + + + + + Care Team Providers + +------+ + | Care Finance Vice President Name | Role | Phone [...]
--- OUTSIDE RECORDS SUMMARY | ~2019-02-14 | XMS | Encounter Summary ---
Demographics + + + | Address | [address] | | | [place] [address] | + + + | Home Phone [...] [place], | | | | | [place] [address] | | + + + + + Care Team Providers + +------+ + | Care Natural Sciences Professor Name | Role | Phone | [...] as of this encounter Progress Notes Interface, Piece Worker In - 02/23/2006 5:02 AM PSTCLINIC [...] ago when she read about an [facility] clinic, and presented by self-referral to [...] medication in September when she moved from [place] to [place] and switched providers. Patient states that since [...] Patient was seen by Dr. Browning in [place], [place], at which time she was given [...] Recommended group therapy. Patient is covered through [place] and she will investigate possible group therapy at the [place] system. Patient was seen and interviewed with Dr. Anabelle Garcia. Frederic Koch M.D. Resident, Internal Medicine Anabelle Garcia M.D. Dude Ranch Manager, Psychiatry ELDA/ruby d ocumented in this encounter Plan of Treatment Not on filedocumented as of this encounter Visit Diagnoses Not on filedocumented in this encounter"
--- OUTSIDE RECORDS SUMMARY | ~2019-02-14 | XMS | Encounter Summary ---
Demographics + + + | Address | [address] | | | [place] [address] | + + + | Home Phone [...] [place], | | | | | [place] [address] | | + + + + + Care Team Providers + +------+ + | Care Psychologist Chief Name | Role | Phone | + +------+ + PCP | Unavailable | + +------+ + Encounter Details +--------+ + + + + | Date | Type | Department | Care Team | Description | +--------+ + + + + | 09/20/ | Office | General Internal | Note, Outpatient | Progress Note | | 1994 | Visit-Trans | Medicine [address] | Clinic | | | | [place] | Arthur Barger | | | | | | Mailcode: L475 | | | | | | Outpatient Clinic | | | | | | [facility], [address] | | | | | | [place], [place] | | | | | | [address] | | | | | | [phone] | | | +--------+ + + + [...] as of this encounter Progress Notes Interface, Vacation Planner In - 06/01/2006 3:00 AM PDT CLINIC DATE: 09/20/94 PSYCHIATRY CLINIC: OBSESSIVE-COMPULSIVE DISORDER (OCD) PSYCHIATRIC CLINIC EVALUATION: IDENTIFYING INFORMATION: Ms. [place] is a 39-year-old white female who is self-referred to the OCD Clinic for evaluation of potential obsessive-compulsive disorder symptomatology. Sources of information include the patient who appears to be a reliable historian as well as the [facility] chart including a neuropsychological evaluation conducted [...] Four months later, she was hospitalized at [facility] for 10 days at the recommendation [...] 1994. 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 Since that time, she has been on Social Security disability. Her boyfriend works in an auto shop that they bought several years ago. She has tried to work in the autocicayda shop but is unable to tolerate it [...] interview carrying the recent article [facility] the [facility] on OCD. She easily engages in the [...] Monroy M.D. Resident, Psychiatry Jamir Payan M.D. Venereal Disease Investigator, Psychiatry and occurred after her last divorce. [...] 1994. 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 Since that time, she has been on Social Security disability. Her boyfriend works in an auto shop that they bought several years ago. She has tried to work in the autocicayda shop but is unable to tolerate it [...] interview carrying the recent article from the [facility] on OCD. She easily engages in [...] Monroy M.D. Resident, Psychiatry Jamir Payan M.D. Venereal Disease Investigator, Psychiatry Aaron:bony WOOD:bony C: 10/04/94 shubham documented in this encounter Plan of Treatment Not on filedocumented as of this encounter Visit Diagnoses Not on filedocumented in this encounter
--- OUTSIDE RECORDS SUMMARY | ~2019-02-14 | XMS | Encounter Summary ---
Demographics + + + | Address | [address] | | | [place] [address] | + + + | Home Phone [...] [place], | | | | | [place] [address] | | + + + + + Care Team Providers + +------+ + | Care Driller'S Assistant Name | Role | Phone | [...] as of this encounter Progress Notes Interface, Pumper Gauger In - 02/23/2006 5:02 AM PSTCLINIC DATE: [...] C: 01/10/1998 ds cc: Wallace Szymanski M.D. Wood Cabinet Finisher, Internal Medicine Hui Milton M.D. Resident, Internal Medicine 07 5:02 AM PSTdocumented in this encounter Plan of Treatment Not on filedocumented as of this encounter Visit Diagnoses Not on filedocumented in this encounter"
--- OUTSIDE RECORDS SUMMARY | ~2019-02-14 | XMS | Encounter Summary ---
Demographics + + + | Address | [address] | | | [place] [address] | + + + | Home Phone [...] | [facility] | | | and [place] | + + + | Organization | [facility] | | | [...] Team Providers + +------+ + | Care Court Magistrate Name | Role | Phone | [...] | 10/19/ | Telephone | [facility] | Timothy Elmore PA | Other ([facility] | | 2015 | | [address] [facility] | [address] | prep) | | | | [address] | [address] [place] | | | | | [place] | [address] | | | | | [address] | [phone] | | | | | [phone] | | | +--------+ + + + [...]
--- OUTSIDE RECORDS SUMMARY | ~2019-02-14 | XMS | Encounter Summary ---
Demographics + + + | Address | [address] | | | [place] [address] | + + + | Home Phone [...] + + + | Author | [facility] | | | and [place] | + + + | Organization | [facility] | | | and [place] [...] Team Providers + +------+ + | Care Professor Of Surgery Name | Role | Phone | + [...] [place] | | | | | [address] | [phone] | | | | | [phone] | | | +--------+ + + + [...]
--- OUTSIDE RECORDS SUMMARY | ~2019-02-14 | XMS | Encounter Summary ---
Demographics + + + | Address | [address] | | | [place] [address] | + + + | Home Phone [...] [place], | | | | | [place] [address] | | + + + + + Care Team Providers + +------+ + | Care Loom Operator Name | Role | Phone | [...] as of this encounter Progress Notes Interface, Fur Blower Operator In - 02/23/2006 5:02 AM PSTCLINIC [...] and Premarin as she normally would. Ms. Evasn' interview, physical exam and treatment plan were thoroughly discussed with Dr. Wallace Szymanski. Hui Milton M.D. Resident, Internal Medicine Wallace Szymanski M.D. Physician Office Specialist, Internal Medicine TORI/JENAE/estrellita d ocumented in this encounter Plan of Treatment Not on filedocumented as of this encounter Visit Diagnoses Not on filedocumented in this encounter"
--- OUTSIDE RECORDS SUMMARY | ~2019-02-14 | XMS | Encounter Summary ---
Demographics + + + | Address | [address] | | | [place] [address] | + + + | Home Phone [...] | [facility] | | | and [place] | + + + | Organization | [facility] | | [...] Team Providers + +------+ + | Care Piece Goods Clerk Name | Role | Phone | [...] ([facility] | | 2015 | | [address] [facility] | [address] | prep) | | | | [address] | [address] [place] | | | | | [place] | [address] | | | | | [address] | [phone] | | | | | [phone] | | | +--------+ + + + [...]
--- OUTSIDE RECORDS SUMMARY | ~2019-02-14 | XMS | Encounter Summary ---
Demographics + + + | Address | [address] | | | [place] [address] | + + + | Home Phone [...] | [facility] | | | and [place] | + + + | Organization | [facility] | | [...] Team Providers + +------+ + | Care Superintendent Greens Name | Role | Phone | + +------+ + | Timothy Elmore | PCP | | + +------+ + Encounter Details +--------+ + + + + | Date | Type | Department | Care Team | Description | +--------+ + + + + | 08/18/ | Abstract | [facility] | Karlee, | Dental caries | | 2015 | | PHYSIATRY [address] | [address] CMA | (Primary Dx); | | | | [address] | | Depression; | | | | [place] | | Essential | | | | [address] | | hypertension | | | | [phone] | | | +--------+ + + + [...]
--- OUTSIDE RECORDS SUMMARY | ~2019-02-14 | XMS | Clinical Summary ---
Demographics + + + | Address | [address] | | | [place] [address] | + + + | Home Phone [...] | Author | [facility] | | | and [place] | + + + | Organization | [facility] | [...] Team Providers + +------+ + | Care Consumer Insights Specialist Name | Role | Phone | [...] +--------+ +---------+--------+ | MEDICARE | MEDICA | [id number] | 03/21/18 | [phone] | | Medica | | | RE | | 96-Pre | 5 | | re | | | PART A | | sent | | | | | | AND B | | | | | | + +--------+ +--------+ +---------+--------+ | MEDICAID [place] | MEDICA | [id number] | | [phone] | | Medica | [...] | 4 | [phone] | [place] [address] | | | anastasiya | | | 7 (Home) | | + +--------+ +--------+ + + Advance Directives + + + + + | Type | Date Recorded | Patient | Explanation | | | | Parts Processor | | + + + + + | Power of | | | | | Sand Cutting Machine Operator | | | | + + + [...]
--- OUTSIDE RECORDS SUMMARY | ~2019-02-14 | XMS | Encounter Summary ---
Demographics + + + | Address | [address] | | | [place] [address] | + + + | Home Phone [...] | Author | [facility] | | | and [place] | + + + | Organization | [facility] | | | and [place] [...] Team Providers + +------+ + | Care Space Engineer Name | Role | Phone | [...] | | | | | [address] [place] | [address] | | | | | [address] | [place] [address] | | | | | [phone] | [phone] | | | | | | | [...] through Care Everywhere.THRUSH, [place]AL (Y EAST INFECTION) ([place])documented in this encounter Medications at Time of [...]
--- OUTSIDE RECORDS SUMMARY | ~2019-02-14 | XMS | Encounter Summary ---
Demographics + + + | Address | [address] | | | [place] [address] | + + + | Home Phone [...] [place], | | | | | [place] [address] | | + + + + + Care Team Providers + +------+ + | Care Turf Farm Worker Name | Role | Phone | [...] Rd | | | | | | [place] | | | | | | [address] | | | +--------+ + + + [...] as of this encounter Progress Notes Interface, Pastry Supervisor In - 06/14/2006 5:08 AM PDT [address] [address] [facility] December 25, 1993 LEILANI ACOSTA MD [address] [place] [id number] RE:Litzy Evans MR#:[id number] Acosta: Thank [...] your kind referral. Sincerely, Faisal Grijalva M.D. Temporary Help Agency Referral Clerk, Neurology JFQ/mrd December 26, 1993 documented in this encounter Plan of Treatment Not on filedocumented as of this encounter Visit Diagnoses Not on filedocumented in this encounter"
--- OUTSIDE RECORDS SUMMARY | ~2019-02-14 | XMS | Encounter Summary ---
Demographics + + + | Address | [address] | | | [place] [address] | + + + | Home Phone [...] + | Author | [facility] | | | and [place] | + + + | Organization | [facility] [...] Providers + +------+ + | Care Business Administration Program Chair Name | Role | Phone | [...] [address] | | | | | [address] | [place] [address] | | | | | [phone] | [phone] | | | | | | | [...] through Care Everywhere.THRUSH, ORAL (Y EAST INFECTION) ([place])documented in this encounter Medications at Time of [...]
--- OUTSIDE RECORDS SUMMARY | ~2019-02-14 | XMS | Encounter Summary ---
Demographics + + + | Address | [address] | | | [place] [address] | + + + | Home Phone [...] [place], | | | | | [place] [address] | | + + + + + Care Team Providers + +------+ + | Care Middle School English Teacher Name | Role | Phone | [...] as of this encounter Progress Notes Interface, Cylindrical Mixer In - 02/09/2006 5:05 AM PSTCLINIC DATE: [...]
--- OUTSIDE RECORDS SUMMARY | ~2019-02-14 | XMS | Encounter Summary ---
Demographics + + + | Address | [address] | | | [place] [address] | + + + | Home Phone [...] [place], | | | | | [place] [address] | | + + + + + Care Team Providers + +------+ + | Care Scalloper Name | Role | Phone | + +------+ + PCP | Unavailable | + +------+ + Encounter Details +--------+ + + + + | Date | Type | Department | Care Team | Description | +--------+ + + + + | 05/13/ | Results | | Other, Faculty | | | 1998 | Only | | [phone] | | +--------+ + + + + [...] | | + +---------+ + + | [facility] DEPARTMENT OF | | | | | RADIOLOGY | | | | + +---------+ + + documented in this encounter Visit Diagnoses Not on filedocumented in this encounter"
--- OUTSIDE RECORDS SUMMARY | ~2019-02-14 | XMS | Encounter Summary ---
Demographics + + + | Address | [address] | | | [place] [address] | + + + | Home Phone [...] [place], | | | | | [place] [address] | | + + + + + Care Team Providers + +------+ + | Care Indexer Name | Role | Phone | + +------+ + PCP | Unavailable | + +------+ + Encounter Details +--------+ + + + + | Date | Type | Department | Care Team | Description | +--------+ + + + + | 04/11/ | Office | UNKNOWN DEPARTMENT | Note, Outpatient | Progress Note | | 1994 | Visit-Trans | [address] | Clinic | | | | merritt | [address] | | | | | | [place], [place] | | | | | | [address] | | | +--------+ + + + [...] as of this encounter Progress Notes Interface, Painter Hand In - 06/11/2006 5:10 AM PDT CLINIC DATE: 04/11/94 NEUROLOGY CLINIC: Litzy returns for follow-up of her chronic pain syndrome. Since our last visit, I have had the opportunity to review an lumbosacral (LS) spine magnetic resonance imaging (MRI) performed at an outside hospital and dated 05/06/93. This was performed at [facility]. It was a good quality study [...] Follow-up in Pain Clinic. Faisal Grijalva M.D. V Belt Skiver, Neurology FELIZ:manuel documented in this encounter Plan of Treatment Not on filedocumented as of this encounter Visit Diagnoses Not on filedocumented in this encounter
--- OUTSIDE RECORDS SUMMARY | ~2019-02-14 | XMS | Encounter Summary ---
Demographics + + + | Address | [address] | | | [place] [address] | + + + | Home Phone [...] [place], | | | | | [place] [address] | | + + + + + Care Team Providers + +------+ + | Care Beater Head Name | Role | Phone | [...] Vazquez Valdez | | | | | [address] | [facility] [place] | | | | | Loop Mailcode: | [address] | | | | | [address] Outpatient | [phone] | | | | | Clinic Building | | | | | | [place], [place] | | | | | | [address] | | | | | | [phone] | | | +--------+ + + + [...] | | + +---------+ + + | [facility] DEPARTMENT | | | | | RADIOLOGY | | | | + +---------+ + + documented in this encounter Visit Diagnoses Not on filedocumented in this encounter"
--- OUTSIDE RECORDS SUMMARY | ~2019-02-14 | XMS | Encounter Summary ---
Demographics + + + | Address | [address] | | | [place] [address] | + + + | Home Phone [...] | Author | [facility] | | | and [place] | + + + | Organization | [facility] [...] Team Providers + +------+ + | Care Continuous Weld Pipe Mill Supervisor Name | Role | Phone | [...] | 12/23/ | Clinical | [facility] [address] | | Elevated cortisol | | 2015 | Support | [place] | | level (HCC) (Primary | | | | ENDOCRINOLOGY 1330 | | Dx); Decreased | | | | ROCKAILIN CHUNG KATYA | | cortisol level ([facility]) | | | | [address] [place] | | | | | | [address] | | | | | | [phone] | | | +--------+ + + + [...] | | Right | | Intramuscular, ONCE, [facility] 12/23/14 | | AM PST | [...]
--- OUTSIDE RECORDS SUMMARY | ~2019-02-14 | XMS | Encounter Summary ---
Demographics + + + | Address | [address] | | | [place] [address] | + + + | Home Phone [...] [place], | | | | | [place] [address] | | + + + + + Care Team Providers + +------+ + | Care Boat Captain Name | Role | Phone | + [...] as of this encounter Progress Notes Interface, Awning Frame Maker In - 02/28/2006 3:08 AM PSTCLINIC DATE: [...] recently by a family medicine service in [place], [place]. 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 Richie Her M.D. Crop Grain Or Livestock Farmer, Department of Orthopedics and Rehabilitation DANELLE/emily P documented in this encounter Plan of Treatment Not on filedocumented as of this encounter Visit Diagnoses Not on filedocumented in this encounter"
--- OUTSIDE RECORDS SUMMARY | ~2019-02-14 | XMS | Encounter Summary ---
Demographics + + + | Address | [address] | | | [place] [address] | + + + | Home Phone [...] [place], | | | | | [place] [address] | | + + + + + Care Team Providers + +------+ + | Care Position Clerk Name | Role | Phone | [...] as of this encounter Progress Notes Interface, Tool Grinder Operator External In - 02/14/2006 5:12 AM PSTCLINIC DATE: [...]
--- OUTSIDE RECORDS SUMMARY | ~2019-02-14 | XMS | Clinical Summary ---
Demographics + + + | Address | [address] | | | [place] [address] | + + + | Home Phone | | + + + | Preferred Language | Unknown | + + + | Marital Status | Single | + + + | Protestant Affiliation | Unknown | + + + | Race | Unknown | + + + | Ethnic Group | Unknown | + + + Author + + + | Author | [facility] | | | and [place] | + + + | Organization | [facility] | | | and [place] [...] Team Providers + +------+ + | Care Slag Mixer Name | Role | Phone | [...] +--------+ +---------+--------+ | MEDICARE | MEDICA | [id number] | 03/21/18 | [phone] | | Medica | | | RE | | 96-Pre | 5 | | re | | | PART A | | sent | | | | | | AND B | | | | | | + +--------+ +--------+ +---------+--------+ | MEDICAID [place] | MEDICA | [id number] | | [phone] | | Medica | [...] | 4 | [phone] | [place] [address] | | | anastasiya | | | 7 (Home) | | + +--------+ +--------+ + + Advance Directives + + + + + | Type | Date Recorded | Patient | Explanation | | | | Social Service Director | | + + + + + | Power of | | | | | Production Broaching Machine Operator | | | | + [...]
--- OUTSIDE RECORDS SUMMARY | ~2019-02-14 | XMS | Encounter Summary ---
Demographics + + + | Address | [address] | | | [place] [address] | + + + | Home Phone [...] [place], | | | | | [place] [address] | | + + + + + Care Team Providers + +------+ + | Care Director Investor Relations Name | Role | Phone | + [...] of this encounter Progress Notes Interface, Electronic Video Games Servicer In - 02/28/2006 3:08 AM PSTCLINIC DATE: [...] recently by a family medicine service in [place], [place]. 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 She has not been working over the [...] desires further evaluation. Richie Her M.D. Director Gift, Department of Orthopedics and Rehabilitation DANELLE/emily P documented in this encounter Plan of Treatment Not on filedocumented as of this encounter Visit Diagnoses Not on filedocumented in this encounter"
--- OUTSIDE RECORDS SUMMARY | ~2019-02-14 | XMS | Encounter Summary ---
Demographics + + + | Address | [address] | | | [place] [address] | + + + | Home Phone [...] [place], | | | | | [place] [address] | | + + + + + Care Team Providers + +------+ + | Care Finisher Wallboard And Plasterboard Name | Role | Phone | + +------+ + PCP | Unavailable | + +------+ + Encounter Details +--------+ + + + + | Date | Type | Department | Care Team | Description | +--------+ + + + + | 05/13/ | Results | | Other, Faculty | | | 1998 | Only | | [phone] | | +--------+ + + + + [...] | + +---------+ + + | [facility] DEPARTMENT OF | | | | | RADIOLOGY | | | | + +---------+ + + documented in this encounter Visit Diagnoses Not on filedocumented in this encounter"
--- OUTSIDE RECORDS SUMMARY | ~2019-02-14 | XMS | Encounter Summary ---
Demographics + + + | Address | [address] | | | [place] [address] | + + + | Home Phone [...] | [facility] | | | and [place] | + + + | Organization | [facility] | | | and [place] [...] Providers + +------+ + | Care Editor Index Name | Role | Phone | + [...] | | 2014 | | [place] | [address] | Weight loss; | | | | ENDOCRINOLOGY [address] | [address] | Pancreatic | | | | [place] CHUN[address] KATYA | [place] [address] | insufficiency; | | | | [address] [place] | [phone] | Diarrhea | | | | [address] | | | | | | [phone] | | | +--------+ + + + [...] | CORE | | | | [place] [address] | | LABORATORY | | | | | | (I) | | + + + + + + + + | Specimen | + + | Blood specimen | | (specimen) | + + + + + + + | Performing | Address | City/State/Zipcode | Phone Number | | Organization | | | | + + + + + | [facility] [place] | [address] | [place] [address] | [phone] | | CORE LAB[facility]ATORY (I) | | [...] [place] | | | | | | [address] | | | | + + + + + + + + | Specimen | + + | Blood specimen | | (specimen) | + + + + + + + | Performing | Address | City/State/Zipcode | Phone Number | | Organization | | | | + + + + + | [facility] | [address] | [place] [address] | [phone] | | C[facility] LAB[facility]ATORY (I) | | [...] CARIE | | | Fasting | [facility] [address] | | [place] | | | [...] | [address] | [place] [address] | [phone] | | [facility] (I) | | [...] [place] | | | | | | [address] | | | | + + + + + + + + | Specimen | + + | Blood specimen | | (specimen) | + + + + + + + | Performing | Address | City/State/Zipcode | Phone Number | | Organization | | | | + + + + + | [facility] | [address] | [place] [address] | [phone] | | [facility] (I) | | [...]
--- OUTSIDE RECORDS SUMMARY | ~2019-02-14 | XMS | Encounter Summary ---
Demographics + + + | Address | [address] | | | [place] [address] | + + + | Home Phone [...] + | Author | [facility] | | | and [place] | + + + | Organization | [facility] | | | and [...] Team Providers + +------+ + | Care Atlassian Administrator Name | Role | Phone | [...] | | | | oral mucosa | [address] | [place] | | | | | | [place], [place] | [place] [address] | | | | | | [address] | [place], [place] | | | | | | Phone: | [phone] Phone: | | | | | | [phone] | [phone] | | | | | | Fax: | Fax: | | | | | | [phone] | [phone] | +--------+--------+ + + + + Encounter Details +--------+---------+ + + + | Date | Type | Department | Care Team | Description | +--------+---------+ + + + | 12/07/ | Office | [facility] | Jamir Griffith, | Oral lesion (Primary | | 2016 | Visit | [facility] 1330 | MD 1330 | Dx); Tinnitus, | | | | [place] Valdez KATYA | CHARLES VALDEZ KATYA | bilateral; | | | | [address] | [address] | Hoarseness; ETD | | | | [phone] | [phone] | (eustachian tube | | | | [...] she had thrush earlier in the [facility], tom related to use of prolonged prednisone. [...] regarding hearing loss. I spent 50 minutes [id number] with Litzy Evans today; greater than 50% [...]
--- OUTSIDE RECORDS SUMMARY | ~2019-02-14 | XMS | Encounter Summary ---
Demographics + + + | Address | [address] | | | [place] [address] | + + + | Home Phone [...] Author | [facility] | | | and [place] | + + + | Organization | [facility] | [...] Team Providers + +------+ + | Care Venereal Disease Investigator Name | Role | Phone | [...] n | neuritis or | [place] | [address] | | | | | | [address] | [place], | | | | | radiculitis, | [place], | [place] | | | | | unspecified | [place] | Phone: | | | | | [facility] | [address] | [phone] | | | | | | Phone: | Fax: | | | | | | [phone] | [phone] | +--------+--------+ + + + + Encounter Details +--------+ + + + + | Date | Type | Department | Care Team | Description | +--------+ + + + + | 02/24/ | Procedure | [facility] | Brent, | 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 Ankle Clonus: absent. [address] [address] Patient: Litzy Evans Date of : 1955 Sex: Female Age: 59 Years 4 Months Height: 5 feet 5 inch Sensory NCS Nerve / Sites Rec. 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
--- OUTSIDE RECORDS SUMMARY | ~2019-02-14 | XMS | Encounter Summary ---
[...] [place], | | | | | [place] [address] | | + + + + + Care Team Providers + +------+ + | Care Loader Unloader Name | Role | Phone | + [...] as of this encounter Progress Notes Interface, Insight Director In - 02/17/2006 3:01 AM PSTCLINIC DATE: 03/09/1998 INTERNAL MEDICINE CLINIC SUBJECTIVE: This is a patient of Mp Milton who comes in today with pain exacerbation secondary to her fibromyalgia and chronic low back pain. At the last visit she made a verbal commitment for management of her chronic pain, which included an agreement that Mp was her sole Vicodin sales service manager. She attempted to make an appointment [...]
--- OUTSIDE RECORDS SUMMARY | ~2019-02-14 | XMS | Encounter Summary ---
Demographics + + + | Address | [address] | | | [place] [address] | + + + | Home Phone [...] [place], | | | | | [place] [address] | | + + + + + Care Team Providers + +------+ + | Care Meat Wrapper Name | Role | Phone | + [...] Rd | | | | | | [place] | | | | | | [address] | | | +--------+ + + + [...] as of this encounter Progress Notes Interface, Wheelabrator Operator In - 06/14/2006 5:08 AM PDT [address] [address] [facility] December 25, 1993 LEILANI ACOSTA MD [address] [place] [address] RE:Litzy Evans MR#:[id number] Acosta: Thank you for referring Litzy Evans to the [facility] Neurology [facility] for evaluation. I found [...] your kind referral. Sincerely, Faisal Grijalva M.D. Motor Scooter Mechanic, Neurology JFQ/mrd December 26[birth year] 1993 documented in this encounter Plan of Treatment Not on filedocumented as of this encounter Visit Diagnoses Not on filedocumented in this encounter"
[~2019-02-14 09:28] MED LIST changes: +FENTANYL1 EAC4 TD; +FLOMAX0.4 MG PO; +LASIX20 MG PO; +MELATONIN3 M3 PO; +METOPROLOL SUC100 MG PO; +OXYCODONE HCL10 MG PO; +PIPERACIL-TAZO4.5 G1 IV; +PRILOSEC OTC20 MG PO; +PROBIOTIC PEAR1 EACH PO; +SENNA8.6 MG PO; +SPIRIVA RESPIMAT4 GM INH; +ZOFRAN4 MG PO
--- OUTSIDE RECORDS SUMMARY | 2019-02-14 09:32 | XMS ---
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 LLAMAS Security Incident Response Lead Events No recent Security Events currently on file CRITERIA MET - Group Notification - [facility] - Has Care Guidelines - PDMP - [facility] - 2 Visits in 30 Days CARE PROVIDERS FRANTZ CONLEY Physician Automatic Profile Shaper Operator: Medical Current PHONE: Unknown Name Unknown Half-Way Facility Current PHONE: [phone] LY MACIAS [facility] 11/11/2017-Current PHONE: [phone] Ramos Granados MD PHONE: Unknown DR LY MACIAS [facility] 02/16/2016-Current PHONE: [phone] Guidelines Source: [facility] [place] Guidelines Date: 08/04/2018 Care Coordination: Receives mental health services with [facility].\T\nbsp; Please contact [facility] with mental health concerns.\T\nbsp; [place]:\T\nbsp; \T\nbsp; [place]:\T\nbsp; [id number]. Care History Medical/Surgical 12/25/2018 [facility] - W RECEIVED INPATIENT -CASE MANAGEMENT REFERRAL - PATIENT NO LONGER HAS A NEBULIZER MACHINE AND LOST IT- [facility] HAS REQUESTED A [facility] REVIEW TO SEE IF PATIENT CAN BE ELIGIBLE FOR ANOTHER NEBULIZER MACHINE COVERED. 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 - FOLLOW UP AFTER PATIENT DISCHARGE-PATIENT WOULD BENEFIT FROM A HOME VISIT. 08/04/2018 [facility] - PATIENT HAS ALL [facility] - PATIENT HAS PCP DR MACIAS IN [place]. - PATIENT DOES HAVE CASE MANAGEMENT THRU [facility]- PAST WAS LAST SEEN BY CASE MANAGEMENT WEEK OF 07/27/18. 05/13/2017 [facility] Care Recommendation: This patient has had 5 or more Emergency Department visits in the last 12 months. Patient requires education on the scope and purpose of the ED as an acute care provider not a Primary Care Provider and should not be utilized for chronic conditions. If patient returns to ED please contact Community Health WorkerKaylynn at [phone]. These are guidelines and the provider should exercise clinical judgment when providing care. E.D. VISIT COUNT (12 MO.) 8 [facility] TOTAL 8 NOTE: Visits indicate total known visits. ED/UCC VISIT TRACKING (12 MO.) 02/14/2019 09:29 [facility] [place] TYPE: Emergency COMPLAINT: - LEFT LEG PAIN, POST OP ? 48 DAYS 02/06/2019 16:10 [facility] [place] TYPE: Emergency COMPLAINT: - RETAINING FLUID DIAGNOSES: - Allergy status to analgesic agent status - Allergy status to oth drug/meds/biol subst status - Personal history of nicotine dependence - Edema, unspecified - Other termite control representative (current) drug therapy - Localized edema 02/03/2019 00:05 [facility] [place] TYPE: Emergency COMPLAINT: - SOB DIAGNOSES: - Allergy status to analgesic agent status - Nicotine dependence, unspecified, uncomplicated - Fall on same level, unspecified, initial encounter - Transient alteration of awareness - Shortness of breath - Other termite control representative (current) drug therapy - Allergy status to oth drug/meds/biol subst status 01/07/2019 09:53 [facility] [place] TYPE: Emergency COMPLAINT: - WEAKNESS DIAGNOSES: - Allergy status to oth drug/meds/biol subst status - Pericardial effusion (noninflammatory) - Allergy status to analgesic agent status - Weakness - Other correction (current) drug therapy - Anemia, unspecified - [...] - Nicotine dependence, unspecified, uncomplicated - Other termite control representative (current) drug therapy 03/22/2018 02:02 [facility] [place] TYPE: Emergency COMPLAINT: - MOUTH SWELLING INPATIENT VISIT TRACKING (12 MO.) 01/07/2019 17:48 Souleymane [facility] [place] TYPE: Medical Surgical COMPLAINT: - PERICARDIL ENFFUSION [...] to oth drug/meds/biol subst status - Other correction (current) drug therapy - Other nonspecific abnormal [...] to oth drug/meds/biol subst status - Other correction (current) drug therapy - Major depressive disorder, single episode, unspecified - Essential (primary) hypertension - Chronic respiratory failure with hypoxia - 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, left femur, init - 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 - Opioid dependence, uncomplicated - USP (current) use of inhaled steroids - Abnormal levels of other serum enzymes - Gastro-esophageal reflux disease without esophagitis - Other correction (current) drug therapy 03/22/2018 02:03 [facility] [place] TYPE: Observation COMPLAINT: - ANGIOEDEMA DIAGNOSES: - Emphysema, unspecified - 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
[2019-02-14] MEDS ORDERED: PERCOCET 5-3251 EACH PO (12:07)
== END 2019-02-14 13:10 | disposition home or self-care (01) ==
LOC: ED 09:28
DX: R60.0 Localized edema (principal); F31.9 Bipolar disorder, unspecified; Z88.8 Allergy status to other drugs, medicaments and biological substances; Z88.6 Allergy status to analgesic agent; Z79.899 Other long term (current) drug therapy
CPT/HCPCS: 73552; 80053; 83880; 85025; 93971; 96374; 99284-25

== ENCOUNTER 2019-03-05 14:38 | Emergency (ER) | payer MEDICARE, OTHER ==
[~2019-03-05] VITALS: Ht 165.1 cm; Wt 63.5 kg
--- OUTSIDE RECORDS SUMMARY | ~2019-03-05 | XMS | Encounter Summary ---
Demographics + + + | Address | [address] | | | [place] [address] | + + + | Home Phone | | + + + | Preferred Language | Unknown | + + + | Marital Status | Single | + + + | Synagogue Affiliation | Unknown | + + + | Race | White | + + + | Ethnic Group | Not or | + + + Author + + + | Author | [facility] | + + + | Organization | [facility] | + + + | Address | Unknown | + + + | Phone | Unavailable | + + + Support + + + + + | Name | Relationship | Address | Phone | + + + + + | Zaida Putnam | ECON | [address] | | | | | [place], | | | | | [place] [address] | | + + + + + Care Team Providers + +------+ + | Care Peoplesoft Hcm Developer Name | Role | Phone | + +------+ + PCP | Unavailable | + +------+ + Encounter Details +--------+ + + + + | Date | Type | Department | Care Team | Description | +--------+ + + + + | 07/11/ | Office | [facility] | Note, Outpatient | Progress Note | | 1998 | Visit-Trans | MEDICINE | Clinic | | | | cribed | | | | +--------+ + + [...] as of this encounter Progress Notes Interface, Geomagnetist In - 02/07/2006 1:09 AM PSTCLINIC DATE: 07/11/1998 INTERNAL MEDICINE CLINIC PROBLEM LIST: 1. Chronic pain, with the diagnosis of fibromyalgia. 2. Polysubstance abuse, ongoing. 3. Malingering. 4. Depression. 5. History of alcohol abuse. MEDICATIONS: Currently discontinued by the patient. These had consisted of the followin. Trazodone, 50 mg p.o. q.h.s. p.r.n. 2. Zoloft, 100 mg p.o. q.d. 3. Premarin, 0.625 mg p.o. q.d. SUBJECTIVE: Ms. Evans presents today for follow-up of her drug withdrawal. She was last seen two weeks ago in withdrawal from narcotic medications that I had previously been prescribing for her. These medications were discontinued when it became obvious that Ms. Evans was violating her pain contract. She also was obtaining pain medications off of the street, as well as stealing pain medications from her family members. Today she states that she is no longer having the nausea, vomiting, fatigue, and sweats that she had been experiencing when I last saw her. He complaints now include bilateral ear ache, nasal drainage, chest tightness, dry cough, and sneezing over the last four days. She feels that these symptoms are related to her allergies. She denies any fevers, chills, night sweats, or ocular or throat itching. She has been taking xcnp-dla-zmeceif pseudoephedrine, but has not noted much relief. As for her drug addiction, she continues to buy Vicodin off of the street. She states that she has had to buy medications twice, mostly due to her chronic pain. She is unwilling to accept the fact that she is an addict, and she blames her drug craving on her chronic pain and the bad element that surrounds her. PHYSICAL EXAMINATION: VITAL SIGNS: Weight 158 pounds, temperature 37.4 degrees, blood pressure 118/80, and heart rate 104. GENERAL: This is a well-nourished, white female in no apparent distress. Her behavior is very calm. HEENT: Ears, the tympanic membranes are clear bilaterally. Nose reveals thinned, erythematous, nasal membranes with clear nasal discharge posteriorly. Throat examination reveals mild cobblestoning in the posterior pharynx, without erythema or exudate. NECK: No lymphadenopathy or thyromegaly. CARDIOVASCULAR: Regular rate and rhythm. Normal S1 and S2, without murmurs, rubs, or gallops. LUNGS: Clear to auscultation and percussion. ASSESSMENT AND PLAN: 1. Polysubstance abuse and drug-seeking behavior. The patient is currently recovering from withdrawal of prescription narcotics, without any obvious complications. The patient was advised that she will no longer be prescribe any narcotics from this system. She was encouraged to deal with her chronic pain through physical modalities rather than pain medications. She was also advised to accept herself and her drug addition, in order to ultimately be more successful at staying in remission. 2. Allergic rhinitis, probably due to tree pollen plus/minus grass pollen. Ms. Evans was given a small number of samples of Claritin-D from the clinic, which she is to take when her symptoms occur. The dose is one tablet p.o. q.d. NOTE: Ms. Evans is planning to move to [place]. We will forward her records as soon as she finds a new provider. The patient's interview, physical examination, and treatment plan were reviewed with Dr. Wallace Szymanski. Hui Milton M.D.Resident, Internal Medicine Wallace Szymanski M.D. Danny Tdocumented in this encounter Plan of Treatment Not on filedocumented as of this encounter Visit Diagnoses Not on filedocumented in this encounter"
--- OUTSIDE RECORDS SUMMARY | ~2019-03-05 | XMS | Encounter Summary ---
Demographics + + + | Address | [address] | | | [place] [address] | + + + | Home Phone | | + + + | Preferred Language | Unknown | + + + | Marital Status | Single | + + + | Jehovah'S Witness Affiliation | Unknown | + + + | Race | White | + + + | Ethnic Group | Not or | + + + Author + + + | Author | [facility] | + + + | Organization | [facility] | + + + | Address | Unknown | + + + | Phone | Unavailable | + + + Support + + + + + | Name | Relationship | Address | Phone | + + + + + | Zaida Putnam | ECON | [address] | | | | | [place], | | | | | [place] [address] | | + + + + + Care Team Providers + +------+ + | Care Senior Office Support Assistant Sosa Name | Role | Phone | + +------+ + PCP | Unavailable | + +------+ + Encounter Details +--------+ + + + + | Date | Type | Department | Care Team | Description | +--------+ + + + + | 10/09/ | Office | General Internal | Note, Outpatient | Progress Note | | 1994 | Visit-Trans | Medicine [address] | Clinic | | | | [place] | [facility] | | | | | | Mailcode: [id number] | | | | | | Outpatient Clinic | | | | | | [facility], [address] | | | | | | [place], [place] | | | | | | [address] | | | | | | [phone] | | | +--------+ + + + [...] as of this encounter Progress Notes Interface, Operator Engineer In - 06/01/2006 3:00 AM PDT CLINIC [...] actively in her social programs including attending restoration and bible-study sessions. CURRENT MEDICATIONS: Current medications [...] a very low level with her boyfriend's [employer] business. 3. Increasing social function. This seems to be quite stable and she now is able to understand the effect that anger has on her pain. Ms. Evans will no longer be able to be seen the Pain Management Clinic at [facility] because of a change in insurance coverage. She will be cared for at [facility]. She has requested that her Pain Management Clinic progress notes as well as her Orthopedic progress notes from [facility] be sent to that institution. Ms. Evans has done well after arriving receiving a relatively high dose of oral opioids, Vicodin approximately eight per day. She has been titrated off opioids, and her pain level has decreased from a score of 7-8/10 to currently 0-1/10. I believe that her prognosis is quite good in terms of her chronic pain. John Mulligan M.D. Glove Presser, Anesthesiology Director, Pain Management Services PK:bony cc: CAROLINE YOON MD MACHINING ENGINEER ORTHOPEDICS [facility] documented in this encounter Plan of Treatment Not on filedocumented as of this encounter Visit Diagnoses Not on filedocumented in this encounter"
--- OUTSIDE RECORDS SUMMARY | ~2019-03-05 | XMS | Encounter Summary ---
Demographics + + + | Address | [address] | | | [place] [address] | + + + | Home Phone | | + + + | Preferred Language | Unknown | + + + | Marital Status | Single | + + + | Baptism Affiliation | Unknown | + + + | Race | White | + + + | Ethnic Group | Not or | + + + Author + + + | Author | [facility] | + + + | Organization | [facility] | + + + | Address | Unknown | + + + | Phone | Unavailable | + + + Support + + + + + | Name | Relationship | Address | Phone | + + + + + | Zaida Putnam | ECON | [address] | | | | | [place], | | | | | [place] [address] | | + + + + + Care Team Providers + +------+ + | Care Er Tech Name | Role | Phone | + +------+ + PCP | Unavailable | + +------+ + Encounter Details +--------+ + + + + | Date | Type | Department | Care Team | Description | +--------+ + + + + | 08/14/ | Office | General Internal | Note, Outpatient | Progress Note | | 1994 | Visit-Trans | Medicine [address] | Clinic | | | | [place] | [facility] | | | | | | Mailcode: [id number] | | | | | | Outpatient Clinic | | | | | | [facility], [address] | | | | | | [place], [place] | | | | | | [address] | | | | | | [phone] | | | +--------+ + + + [...] as of this encounter Progress Notes Interface, Regional Director Of Admissions In - 06/05/2006 1:00 AM PDT CLINIC DATE: 08/14/94 PAIN MANAGEMENT CLINIC - PROGRESS NOTE INTERVAL HISTORY: Ms. Evans injured her knee one day ago after falling from a tree stump. She notes a cracking in her knee and pain on moving her knee. In addition, this seems to have exacerbated her left hip pain. She denies side effects from her pain cocktail including nausea, vomiting or sedation and shows a well completed pain diary with consistent pain scores in the one out of ten range. She has had occasional four out of ten pain, but this resolved with rest for one day. Ms. Evans remains quite active with her sikhism organization oand is noticing that she has some anger. In addition, she feels somewhat depressed and has started a course of Zoloft therapy wtih her primary care physician, Doctor Chavis. She feels this has helped somewhat with her depression, but she is uncertain as to whether it is aggravating her underying anger. OBJECTIVE: Physical examination today shows a mildly obese white female in no apparent distress. Her blood pressure is 118/70, heart rate 68, respiratory rate 18. The knee shows moderate edema without edema of the calf or pitting pretibial edema. The range of motion of the knee is limited by pain and there is some popping on articulation of the knee joint with stability of the anterior cruciate ligament. ASSESSMENT AND PLAN: 1. Chronic low back pain. 1.1 Chronic pain therapy. Ms. Evans is off opioids and is doing well with her current Clonidine 50 micrograms twice per day in addition to Vistaril. We will now taper the Vistaril down to 8 mg twice a day. 1.2 Physical therapy. I will continue to encourage that she increase physical therapy, although this is aggravated by her recent knee injury. 1.3 Increase social function. This increase in social function needs to be quite stable and she is now starting to have some appropriate outlets of her anger. John Mulligan M.D. Supervisor Mapping, Anesthesiology Director, Pain Management Services HUI/fernando documented in this encounter Plan of Treatment Not on filedocumented as of this encounter Visit Diagnoses Not on filedocumented in this encounter"
--- OUTSIDE RECORDS SUMMARY | ~2019-03-05 | XMS | Encounter Summary ---
Demographics + + + | Address | [address] | | | [place] [address] | + + + | Home Phone | | + + + | Preferred Language | Unknown | + + + | Marital Status | Single | + + + | Synagogue Affiliation | Unknown | + + + | Race | Unknown | + + + | Ethnic Group | Unknown | + + + Author + + + | Author | [facility] | | | and [place] | + + + | Organization | [facility] | | | and [place] | [...] Team Providers + +------+ + | Care Third Rail Installer Name | Role | Phone | + +------+ + | Timothy Elmore | PCP | | + +------+ + Encounter Details +--------+ + + + + | Date | Type | Department | Care Team | Description | +--------+ + + + + | 12/17/ | Orders Only | [facility] [address] | Joe Flores, | Diarrhea | | 2014 | | [place] | [address] | | | | | ENDOCRINOLOGY [address] | [address] | | | | | [address] | [place] [address] | | | | | [address] [place] [address] | [phone] | | | | | [address] | | | | | | [phone] | | | +--------+ + + + [...] | + +--------+ + + + | CREATININE, URINE, | Routin | 12/17/2014 | Diarrhea | Results for this | | 24HR | e | 9:30 AM | | procedure are in the | | | | PDT | | results section. | + +--------+ + + + | 5 HIAA, URINE, 24HR, | Routin | 12/17/2014 | Diarrhea | Results for this | | QUANT | e | 9:30 AM | | procedure are in the | | | | PDT | | results section. | + +--------+ + + + documented in this encounter Results Creatinine, Urine, 24Hr (12/17/2014 9:30 AM PDT) [...] | 12/17/14 13:52:00 PDT by | | [facility] | | | | FILOMENA GARCIA | | LABORATORY | | | | GabrieleCorrected from [id number] | | (I) | | | | min [NA] on 12/17/14 | | | | | | 13:45:47 PDT by Tyron GARCIA | | Tyron Suazo | | | | + + [...] | CORE | | | | [place] [address] | | LABORATORY | | | | [...] + + | [facility] | [address] | [place] [address] | [phone] | | [facility] (I) | | [...] | | CORE | | | | [address] | | LABORATORY | | | | | | (I) | | + + + + + + + + | Specimen | + + | Urine specimen | | (specimen) | + + + + + + + | Performing | Address | City/State/Zipcode | Phone Number | | Organization | | | | + + + + + | [facility] | [address] | [place] [address] | [phone] | | [facility] (I) | | | | + + + + + documented in this encounter Visit Diagnoses + + | Diagnosis | + + | Diarrhea | + + documented in this encounter"
--- OUTSIDE RECORDS SUMMARY | ~2019-03-05 | XMS | Encounter Summary ---
Demographics + + + | Address | [address] | | | [place] [address] | + + + | Home Phone [...] [place], | | | | | [place] [address] | | + + + + + Care Team Providers + +------+ + | Care Topographical Surveyor Name | Role | Phone | + +------+ + PCP | Unavailable | + +------+ + Encounter Details +--------+ + + + + | Date | Type | Department | Care Team | Description | +--------+ + + + + | 01/03/ | Office | [facility] | Note, [...] as of this encounter Progress Notes Interface, Dry Cleaning Machine Operator Helper In - 02/23/2006 5:02 AM PSTCLINIC DATE: 01/03/1998 INTERNAL MEDICINE CLINIC PROBLEM LIST: 1. Fibromyalgia. 2. Chronic low back pain. 3. Chronic headaches. 4. Manic depression. CURRENT MEDICATIONS: 1. Zoloft. 2. Trazodone. 3. Premarin. SUBJECTIVE: Ms. Evans presents today for management of her chronic pain. She was recently started on a Methadone pain cocktail and was told to take 1 tsp tid. She tried to take the medication for a week, and then flushed the medication down the toilet since it made her feel "icky and disconnected." She reports trying to half the dose and change the interval, without any change in the side effects. Moreover, she reports having had no change in her pain, stating that her pain was "the same pain as usual." She also reports having had constipation with the medication. Note: She was completely unaware that the medication was Methadone. Today, she presents requesting Vicodin ES, since this is the one medication that has worked for her in the past. Her prior primary care physician had prescribed 1 tablets for her daily, which she said was able to give her "relief for quite a long period of time." Today she rates her pain at a 4/10. On the brighter side, she is currently under treatment for her manic depression by Dr. Anabelle Garcia who has prescribed for her Zoloft and Trazodone. The patient is tolerating both medications and today appears much less manic than she did on her last visit. OBJECTIVE: Weight 163 lbs, BP 130/82, pulse 80. General: Comfortable looking white female. Speech had a slightly accelerated and dramatic pace, but improved in this regard from her prior visit. ASSESSMENT AND PLAN: Chronic pain related to fibromyalgia, without clear response to blinded Methadone. At this point, I feel even more strongly that starting Ms. Evans on any opiate would not be in her best interest, not only because of its addictive potential but also because she failed to respond to Methadone. Ms. Evans was disappointed when I told her that I would not give her any narcotics and insisted that we prescribe her somewhat. I reassured her that treatment of her psychiatric problems with Zoloft and Trazodone should also help with her perception of pain related to the fibromyalgia. She refused to attend any physical therapy, but agreed to continue treatment for her manic depression with Dr. Anabelle Garcia. We mutually agreed to see each other in one month to see how she is progressing; at that time, I will reassess her pain. Of note, I did fill out a DMV Disability Form for Ms. Evans at this time. Ms. Evans' interview, physical exam, and treatment plan were thoroughly discussed with Dr. Szymanski. Hui Milton M.D. Resident, Internal Medicine Wallace Szymanski M.D. Sales And Marketing Specialist, Internal Medicine TORI:mau d ocumented in this encounter Plan of Treatment Not on filedocumented as of this encounter Visit Diagnoses Not on filedocumented in this encounter
--- OUTSIDE RECORDS SUMMARY | ~2019-03-05 | XMS | Encounter Summary ---
Demographics + + + | Address | [address] | | | [place] [address] | + + + | Home Phone | | + + + | Preferred Language | Unknown | + + + | Marital Status | Single | + + + | Confucianism Affiliation | Unknown | + + + | Race | Unknown | + + + | Ethnic Group | Unknown | + + + Author + + + | Author | [facility] | | | and [place] | + + + | Organization | [facility] | | | and [place] | [...] Team Providers + +------+ + | Care Deputy Felony Clerk Name | Role | Phone | + +------+ + | Timothy Elmore | PCP | | + +------+ + Reason for Visit +--------+ + | Reason | Comments | +--------+ + | Other | ACTH injection | +--------+ + Encounter Details +--------+ + + + + | Date | Type | Department | Care Team | Description | +--------+ + + + + | 12/23/ | Clinical | [facility] | | Elevated cortisol | | 2015 | Support | [facility] | | level (HCC) (Primary | | | | ENDOCRINOLOGY [address] | | Dx); Decreased | | | | [address] | | cortisol level ([facility]) | | | | [address] [place] | | | | | | [address] | | | | | | [phone] | | | +--------+ + + + [...] documented as of this encounter Progress Notes Marian Llamas CMA - 12/23/2014 1:09 PM PSTPatient here for ACTH injection, administer ed right delt no difficulties patient then sent to lab for repeat blood draw in one hour.Tanja ctronically signed by Marian Llamas CMA at 12/23/2014 1:10 PM PSTdocumented in this enc ounter Plan of Treatment Not on filedocumented as of this encounter Visit Diagnoses + + | Diagnosis | + + | Elevated cortisol level (HCC) - Primary Other corticoadrenal overactivity | + + | Decreased cortisol level (HCC) Glucocorticoid deficiency | + + documented in this encounter Administered Medications + +--------+ +---------+------+ + | Medication Order | MAR | Action | Dose | Rate | Site | | | Action | Date | | | | + +--------+ +---------+------+ + | cosyntropin (CORTROSYN) | Given | 12/24/19 | 250 mcg | | Deltoid- | | injection 250 mcg 250 mcg, | | 15 8:07 | | | Right | | Intramuscular, ONCE, [facility] 12/23/14 | | AM PST | | | | | at 1245, For 1 dose, Mix with 1 | | | | | | | mL NS to make 250 mcg/mL. May | | | | | | | further dilute in 2-5 mL NS for | | | | | | | IV use., | | | | | | + +--------+ +---------+------+ + +---+---+ | | | +---+---+ documented in this encounter"
--- OUTSIDE RECORDS SUMMARY | ~2019-03-05 | XMS | Encounter Summary ---
Demographics + + + | Address | [address] | | | [place] [address] | + + + | Home Phone [...] Author + + + | Author | [facility] | + + + | Organization | [facility] | + + + | Address | Unknown | + + + | Phone | Unavailable | + + + Support + + + + + | Name | Relationship | Address | Phone | + + + + + | Zaida Putnam | ECON | [address] | | | | | [place], | | | | | [place] [address] | | + + + + + Care Team Providers + +------+ + | Care Asphalt Paving Foreman Name | Role | Phone | + +------+ + PCP | Unavailable | + +------+ + Encounter Details +--------+ + + + + | Date | Type | Department | Care Team | Description | +--------+ + + + + | 09/20/ | Office | General Internal | Note, Outpatient | Progress Note | | 1994 | Visit-Trans | Medicine [address] | Clinic | | | | [place] | [facility] | | | | | | Mailcode: [id number] | | | | | | Outpatient Clinic | | | | | | [facility], [address] | | | | | | [place], [place] | | | | | | [address] | | | | | | [phone] | | | +--------+ + + + [...] as of this encounter Progress Notes Interface, Whipped Topping Supervisor In - 06/01/2006 3:00 AM PDT CLINIC DATE: 09/20/94 PSYCHIATRY CLINIC: OBSESSIVE-COMPULSIVE DISORDER (OCD) PSYCHIATRIC CLINIC EVALUATION: IDENTIFYING INFORMATION: Ms. Evans is a 39-year-old white female who is self-referred to the OCD Clinic for evaluation of potential obsessive-compulsive disorder symptomatology. Sources of information include the patient who appears to be a reliable historian as well as the [facility] chart including a neuropsychological evaluation conducted on [...] Four months later, she was hospitalized at [facility] for 10 days at the recommendation of [...] 1994. 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 Since that time, she has been on Social Security disability. Her boyfriend works in an auto shop that they bought several years ago. She has tried to work in the [employer] shop but is unable to tolerate it [...] interview carrying the recent article from the [place] [facility] on OCD. She easily engages in the [...] Monroy M.D. Resident, Psychiatry Jamir Payan M.D. Supervisor Show Operations, Psychiatry and occurred after her last divorce. [...] 1994. 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 Since that time, she has been on Social Security disability. Her boyfriend works in an auto shop that they bought several years ago. She has tried to work in the [employer] shop but is unable to tolerate it [...] interview carrying the recent article from the [facility] on OCD. She easily engages in the [...] [place]roy M.D. Resident, Psychiatry Jamir Payan M.D. Supervisor Show Operations, Psychiatry Aaron:bony WOOD:bony C: 10/04/94 shubham documented in this encounter Plan of Treatment Not on filedocumented as of this encounter Visit Diagnoses Not on filedocumented in this encounter
--- OUTSIDE RECORDS SUMMARY | ~2019-03-05 | XMS | Encounter Summary ---
Demographics + + + | Address | [address] | | | [place] [address] | + + + | Home Phone | | + + + | Preferred Language | Unknown | + + + | Marital Status | Single | + + + | Baptist Affiliation | Unknown | + + + | Race | White | + + + | Ethnic Group | Not or | + + + Author + + + | Author | [facility] | + + + | Organization | [facility] | + + + | Address | Unknown | + + + | Phone | Unavailable | + + + Support + + + + + | Name | Relationship | Address | Phone | + + + + + | Zaida Putnam | ECON | [address] | | | | | [place], | | | | | [place] [address] | | + + + + + Care Team Providers + +------+ + | Care Wine Cellar Stock Clerk Name | Role | Phone | + +------+ + PCP | Unavailable | + +------+ + Encounter Details +--------+ + + + + | Date | Type | Department | Care Team | Description | +--------+ + + + + | 12/25/ | Transcribed | UNKNOWN DEPARTMENT | Dictation, Other | Transcribed | | 1993 | | [address] | | | | | | [address] | | | | | | [place] | | | | | | [address] | | | +--------+ + + + [...] as of this encounter Progress Notes Interface, Teacher Selection Specialist In - 06/14/2006 5:08 AM PDT [address] [address] [facility] December 25, 1993 LEILANI ACOSTA MD [address] [place] [id number] RE:Litzy Evans MR#:[id number] Acosta: Thank you for referring Litzy Evans to the [facility] for evaluation. I found her neurologic examination to be normal except for some sensory findings. 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 I think it is worthwhile ruling out lumbosacral polyradiculopathy, polyneuropathy and multiple sclerosis. I shared my impression with the patient and she was fairly open minded about accepting this sort of diagnosis and accepting referral for appropriate treatment. I have requested a brain MRI and nerve conduction studies of the lower extremities. If these are negative, I think the patient may benefit from referral to our medical psychology group here. Thank you again for your kind referral. Sincerely, Faisal Grijalva M.D. Bed Operator, Neurology JFQ/mrd December 26, 1993 documented in this encounter Plan of Treatment Not on filedocumented as of this encounter Visit Diagnoses Not on filedocumented in this encounter"
--- OUTSIDE RECORDS SUMMARY | ~2019-03-05 | XMS | Encounter Summary ---
Demographics + + + | Address | [address] | | | [place] [address] | + + + | Home Phone | | + + + | Preferred Language | Unknown | + + + | Marital Status | Single | + + + | Adventist Affiliation | Unknown | + + + | Race | Unknown | + + + | Ethnic Group | Unknown | + + + Author + + + | Author | [facility] | | | and [place] | + + + | Organization | [facility] | | | and [place] [...] Team Providers + +------+ + | Care Police Aide Name | Role | Phone | + +------+ + | Timothy Elmore | PCP | | + +------+ + Reason for Visit + + + | Reason | Comments | + + + | Appointment | today's appt | + + + Encounter Details +--------+ + + + + | Date | Type | Department | Care Team | Description | +--------+ + + + + | 08/09/ | Telephone | [facility] | Tapan Bragg | Appointment (today's | | 2015 | | [facility] | MD [address] | appt) | | | | [address] [facility] | [address] [place], | | | | | [address] [place] | [place] | | | | | [address] | [phone] | | | | | [phone] | | | +--------+ + + + [...]
--- OUTSIDE RECORDS SUMMARY | ~2019-03-05 | XMS | Encounter Summary ---
Demographics + + + | Address | [address] | | | [place] [address] | + + + | Home Phone | | + + + | Preferred Language | Unknown | + + + | Marital Status | Single | + + + | Church Affiliation | Unknown | + + + [...] [place], | | | | | [place] [address] | | + + + + + Care Team Providers + +------+ + | Care Journalism Teacher Name | Role | Phone | + +------+ + PCP | Unavailable | + +------+ + Encounter Details +--------+ + + + + | Date | Type | Department | Care Team | Description | +--------+ + + + + | 09/26/ | Results | | Other, Faculty | | | 1993 | Only | | [phone] | | +--------+ + + + + [...] | + +--------+ + + + | X-RAY BONE LENGTH | Routin | 09/26/1993 | | Results for this | | SERIES (JOINT | e | 10:00 AM | | procedure are in the | | SURVEY/LEG LENGTH 1 | | PDT | | results section. | | VW) | | | | | + +--------+ + + + documented in this encounter Results BONE LENGTH SERIES (09/26/1993 10:00 AM PDT) + + + + + + | Component | Value | Ref Range | Performed | Pathologist | | | | | At | Signature | + + + + + + | RAD BONE | Radiologist 1: KWAME, | | | | | LENGTH | PORFIRIO LOUISE GINA | | | | | SERIES | M. | | | | | (JOINT | | | | | | SURVEY/LEG | [id number] | | | | | LENGTH 1 | BILATERAL BONE LENGTH | | | | | VW) | SERIES: 09-26-93 at 0940 | | | | | | hours Dictated: | | | | | | 09-26-93 CLINICAL | | | | | | HISTORY: Leg length | | | | | | inequality. FINDINGS: | | | | | | AP views of both hips, | | | | | | knees and ankles | | | | | | superimpose upon | | | | | | ametallic ruler allow | | | | | | leg measurements as | | | | | | follows: Femur | | | | | | Length: Right: | | | | | | 46.9 cm | | | | | | Left: 47.6 | | | | | | cm Tibia Length: | | | | | | Right: 35.8 | | | | | | cm Left: | | | | | | 36.3 cm No osseous or | | | | | | joint abnormality is | | | | | | recognized. There is a | | | | | | slightpelvic tilt | | | | | | compensating for | | | | | | apparent leg length | | | | | | inequality | | | | | | assumingupright | | | | | | positioning for this | | | | | | examination. | | | | | | IMPRESSION: Combined | | | | | | length of left femur and | | | | | | tibia measures 83.9 cm | | | | | | as comparedto 82.7 cm | | | | | | for the right femur and | | | | | | tibia combined. END OF | | | | | | IMPRESSION: | | | | + + + + + + + + | Specimen | + + | | + + + + + | Narrative | Performed At | + + + | Ordered by CAROLINE YOON M.D. | | + + + + +---------+ + + | Performing | Address | City/State/Zipcode | Phone Number | | Organization | | | | + +---------+ + + | [facility] | | | | | RADIOLOGY | | | | + +---------+ + + documented in this encounter Visit Diagnoses Not on filedocumented in this encounter"
--- OUTSIDE RECORDS SUMMARY | ~2019-03-05 | XMS | Encounter Summary ---
Demographics + + + | Address | [address] | | | [place] [address] | + + + | Home Phone | | + + + | Preferred Language | Unknown | + + + | Marital Status | Single | + + + | Rastafarian Affiliation | Unknown | + + + [...] [place], | | | | | [place] [address] | | + + + + + Care Team Providers + +------+ + | Care Cardiothoracic Physiotherapist Name | Role | Phone | + [...] Clinic | | | | | | [facility] | | | | | | [place], [place] | | | | | | [address] | | | | | | [phone] | | | +--------+ + + + [...] of this encounter Progress Notes Interface, Mechanical Ordnance Assembler In - 06/01/2006 3:00 AM PDT CLINIC [...] actively in her social programs including attending pentecostalism and bible-study sessions. CURRENT MEDICATIONS: Current medications [...] a very low level with her boyfriend's [employer] business. 3. Increasing social function. This seems to be quite stable and she now is able to understand the effect that anger has on her pain. Ms. Evans will no longer be able to be seen the Pain Management Clinic at [facility] because of a change in insurance coverage. She will be cared for at [facility]. She has requested that her Pain Management Clinic progress notes as well as her Orthopedic progress notes from [facility] be sent to that institution. Ms. [...] her chronic pain. John Mulligan M.D. Glove Cuffer, Anesthesiology Director, Pain Management Services PK:bony cc: CAROLINE YOON MD [facility] documented in this encounter Plan of Treatment Not on filedocumented as of this encounter Visit Diagnoses Not on filedocumented in this encounter"
--- OUTSIDE RECORDS SUMMARY | ~2019-03-05 | XMS | Encounter Summary ---
Demographics + + + | Address | [address] | | | [place] [address] | + + + | Home Phone | | + + + | Preferred Language | Unknown | + + + | Marital Status | Single | + + + | Jewish Affiliation | Unknown | + + + | Race | White | + + + | Ethnic Group | Not or | + + + Author + + + | Author | [facility] | + + + | Organization | [facility] | + + + | Address | Unknown | + + + | Phone | Unavailable | + + + Support + + + + + | Name | Relationship | Address | Phone | + + + + + | Zaida Putnam | ECON | [address] | | | | | [place], | | | | | [place] [address] | | + + + + + Care Team Providers + +------+ + | Care Call Center Dispatcher Name | Role | Phone | + +------+ + PCP | Unavailable | + +------+ + Encounter Details +--------+ + + + + | Date | Type | Department | Care Team | Description | +--------+ + + + + | 11/22/ | Office | [facility] | Note, [...] as of this encounter Progress Notes Interface, Wheat Farmer In - 02/26/2006 1:11 AM PSTCLINIC DATE: 11/22/1997 INTERNAL MEDICINE CLINIC HISTORY OF PRESENT ILLNESS: Ms. Evans is a 42 year old patient with a past medical history of obsessive-compulsive disorder, bipolar disorder, chronic low back pain, and chronic headaches, who was referred by the Pain Management Center to establish care. She presents with the following complaints: 1. 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 She also describes numbness nelson the lateral aspect of her thighs and the posterior aspects of her calves. She has been told she has bulging disks at L4 and L5. She was seen recently by Dr. Her from the Orthopedics Department and told she is not a surgical candidate. She has tried physical therapy in the past, but does not do any exercises regularly. She uses heat and ice. She presents today requesting opiates. She has had successful treatment with Vicodin and methadone in the past, but was taken off these medications approximately one year ago and feels that she has been suffering since then. She is currently on disability for her back pain. She was seen in the Pain Management Clinic recently where they told her that they would not prescribe opiates for her and recommended that she be seen by a primary care physician for that purpose. 2. Monthly headaches. She describes pain in the occipital area that radiates forward to her forehead. This pain is not related to any nausea, vomiting, photophobia, or phonophobia. The headaches are short lived, and they occur once a month. She has never been told that she suffers from migraines. 3. Pain "all over." She was recently diagnosed with fibromyalgia and states that she experiences pain all over her body. She has been tried in the past on short acting opiates, muscle relaxers, anti-inflammatories, methadone, Tegretol, lithium, and amitriptyline. PAST MEDICAL HISTORY: Partial abdominal hysterectomy. CURRENT MEDICATIONS: 1. Zoloft. 2. Trazodone. 3. Premarin. HABITS: Tobacco one pack per day. No alcohol. No drugs. 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 She has been five times and five times. NUMBER OF EC VISITS IN THE LAST YEAR FOR CHRONIC PAIN: Three. PHYSICAL EXAMINATION: Weight 164 pounds, blood pressure 110/70, pulse 84. GENERAL: Well-nourished white female in no apparent distress. Smells of tobacco. Hyperverbal with regards to rate and volume of speech. Head atraumatic. Neck with full range of motion, 2+ carotids bilaterally. No jugular venous distension, lymphadenopathy, or thyromegaly. Eyes: Pupils equally round and reactive to light. Extraocular eye movements intact. Ears slightly injected tympanic membranes bilaterally. Throat injected in the posterior pharynx. CARDIOVASCULAR: Regular rate and rhythm. S1, S2 without murmurs, rubs, or gallops. Lungs clear to auscultation and percussion. Abdomen nondistended, nontender with normoactive bowel sounds. No hepatosplenomegaly noted. Rectal deferred. SCIENTIFIC LINGUIST EXAMINATION: Deferred. EXTREMITIES: Clear of clubbing, cyanosis, or edema. Cranial nerves II-XII normal. Motor 5/5 to flexion and extension bilaterally. The patient refused to walk on toes and heels secondary to pain. Sensory diminished pinprick in the lateral aspect of both thighs and the medial and lateral aspects of both calves. Normal sensation over the toes. Deep tendon reflexes 2+ and symmetric bilaterally. Gait guarded. ASSESSMENT AND PLAN: 1. Greater trochanteric bursitis on the right. The patient agreed to have this point injected with corticosteroid today. She was warned of the possibility of infection, bleed, and/or steroid flare and agreed to undergo the injection. Her hip was prepped with iodine and alcohol. 1 cc of 1% lidocaine and 1 cc of Kenalog 40 mg per cc were instilled with a 21-gauge 1-1/2 inch needle placed into the greater trochanteric bursa on the right. The patient obtained some relief with the anesthetic. She was told to limit her walking activities for the next 3-4 weeks. 2. Fibromyalgia and chronic pain. I feel that Ms. Evans' greatest pain problem is probably related more to her fibromyalgia than it is her back pain. In fact, it is difficult to distill from her physical examination how much of her pain is related to fibromyalgia and how much of it is related to her back pain. I am hesitant to start opiate analgesics in case the pain is related to fibromyalgia. I feel much more comfortable in initiating a tricyclic antidepressant and aggressive program of physical therapy. Unfortunately, Ms. Evans is not a good candidate for either given her psychiatric history and her history of noncompliance. For the time being, I will have her return to clinic in two weeks mostly for the purpose of further establishing care. If she demonstrates motivation by returning to clinic, I will be more inclined to recommend a trial of unlabeled opiates. 3. Low back pain with radicular symptoms. Ms. Evans does have signs of some mild neurologic deficit in the L2-3-4-5 distribution which correlates slightly with her history of bulging disks at L4-5. Again, it would benefit her most to undergo physical therapy rather than treatment with opiate analgesics. Unfortunately, she is unlikely to comply with this. Actually, my goal will be to try to encourage her to participate in a more aggressive exercise program. For the time being, I will just follow her symptoms for consistency. 4. Manic depression. Currently appears to be slightly manic. It is unclear what role her psychiatric problems play in her chronic pain. I do feel that ultimately Ms. Evans can benefit from alteration of her medications under the guidance of a psychiatrist. Once I gain her confidence, I will recommend that she be evaluated by Dr. Jayla Garcia with regards to her medications. Perhaps, under her guidance, we can consider initiating a tricyclic or a different SSRI that would help with her radicular pain and numbness. The patient's interview, physical examination, and treatment plan were thoroughly discussed with Dr. Tariq Velásquez who concurred with this treatment plan. Hui Milton M.D. Resident, Internal Medicine Kaleb Velásquez M.D. Media Monitor, Medicine TORI/tesfaye cc: Wallace Szymanski M.D. Media Monitor, Internal Medicine Monroe Pruitt M.D. Media Monitor, Anesthesiology Director of Pain Management Center cc: documente d in this encounter Plan of Treatment Not on filedocumented as of this encounter Visit Diagnoses Not on filedocumented in this encounter
--- OUTSIDE RECORDS SUMMARY | ~2019-03-05 | XMS | Encounter Summary ---
Demographics + + + | Address | [address] | | | [place] [address] | + + + | Home Phone | | + + + | Preferred Language | Unknown | + + + | Marital Status | Single | + + + | Methodist Affiliation | Unknown | + + + | Race | White | + + + | Ethnic Group | Not or | + + + Author + + + | Author | [facility] | + + + | Organization | [facility] | + + + | Address | Unknown | + + + | Phone | Unavailable | + + + Support + + + + + | Name | Relationship | Address | Phone | + + + + + | Zaida Putnam | ECON | [address] | | | | | [place], | | | | | [place] [address] | | + + + + + Care Team Providers + +------+ + | Care Die Finisher Forging Name | Role | Phone | + [...] as of this encounter Progress Notes Interface, Paper Bag Machine Operator In - 02/21/2006 3:06 AM PSTCLINIC DATE: [...] M.D. Resident, Internal Medicine Wallace Szymanski M.D. Pharmacy Operations Specialist, Internal Medicine TORI/niles d ocumented in this encounter Plan of Treatment Not on filedocumented as of this encounter Visit Diagnoses Not on filedocumented in this encounter"
--- OUTSIDE RECORDS SUMMARY | ~2019-03-05 | XMS | Encounter Summary ---
Demographics + + + | Address | [address] | | | [place] [address] | + + + | Home Phone | | + + + | Preferred Language | Unknown | + + + | Marital Status | Single | + + + | Moravian Affiliation | Unknown | + + + | Race | Unknown | + + + | Ethnic Group | Unknown | + + + Author + + + | Author | [facility] | | | and [place] | + + + | Organization | [facility] | | | and [...] Team Providers + +------+ + | Care Jig Fitter Name | Role | Phone | + [...] | | | | | y | [address] | | | | | | Procedures | Phone: | | | | | | evaluate and | [phone] | | | | | | treat | | | +--------+--------+ + + + + Encounter Details +--------+---------+ + + + | Date | Type | Department | Care Team | Description | +--------+---------+ + + + | 12/14/ | Office | [facility] | Joe Flores, | Pancreatic | | 2015 | Visit | [place] | [address] | insufficiency | | | | ENDOCRINOLOGY [address] | [address] | (Primary Dx); | | | | [address] | [place] [address] | Diarrhea; Loss of | | | | [address] [place], [place] | [phone] | appetite; Weight | | | | [address] | | loss | | | | [phone] | | | +--------+---------+ + + + [...] some workup that has been done at [facility]. I received a note from a surgical evaluat ion she had at [facility]. She has also had gastroenterology evaluation at [facility] as well, I do not have those [...] syndrome. Furthermore, I would suggest to her [facility] provider that he screen and evaluate for [...] | | CORE | | | | [place] [address] | | LABORATORY | | | | [...] + + | [facility] [place] | [address] | [place] [address] | [phone] | | CORE LABORATORY (I) | | [...] | | | | | [place] | | | | | | | [...] | [address] | [place] [address] | [phone] | | CORE LABORATORY (I) | | [...] | | CORE | | | | [address] | | LABORATORY | | | | [...] + + | K[facility] [place] | [address] [facility] [address] | [place] [address] | [phone] | | CORE LABORATORY (I) | | [...] | | (I) | | | | [facility].Performed by | | | | | | [...] | [address] | [place] [address] | [phone] | | CORE LABORATORY (I) | | [...] | CORE | | | | [place] [address] | | LABORATORY | | | | [...] + + | K[facility] [place] | [address] [facility] [address] | [place] [address] | [phone] | | CORE LABORATORY (I) | | [...] | | CORE | | | | [address] | | LABORATORY | | | | [...] + + | K[facility] [place]NEY | [address] [facility] | [place] [address] | [phone] | | CORE LABORATORY (I) | | [...]
--- OUTSIDE RECORDS SUMMARY | ~2019-03-05 | XMS | Encounter Summary ---
Demographics + + + | Address | [address] | | | [place] [address] | + + + | Home Phone [...] + + + | Author | [facility] | + + + | Organization | [facility] | + + + | Address | Unknown | + + + | Phone | Unavailable | + + + Support + + + + + | Name | Relationship | Address | Phone | + + + + + | Zaida Putnam | ECON | [address] | | | | | [place], | | | | | [place] [address] | | + + + + + Care Team Providers + +------+ + | Care Transmitter Engineer In Charge Name | Role | Phone | + +------+ + PCP | Unavailable | + +------+ + Encounter Details +--------+ + + + + | Date | Type | Department | Care Team | Description | +--------+ + + + + | 11/05/ | Office | [facility] | Note, [...] as of this encounter Progress Notes Interface, Cardiology Fellow In - 02/28/2006 3:[address] [facility] Account No. PROGRESS RECORD Name Litzy Evans Birthdate 1955 Date Probl Time em FORMAT: PROBLEM NUMBER and TITLE: S=Subjective Number O=Objective A=Analysis P=Plans CLINIC DATE: 11/05/1997 November 05, 1997 OLEG PUGH MD [address] [facility] [address] RE: Litzy EVANS. MR#: [id number] Pugh: I had the pleasure of seeing your patient, Ms. Litzy Evans, at the [facility] today for evaluation of her chronic pain problem. Ms. Evans tells me that she has moved to [place] within the last week and plans to establish care in the month of November with Dr. Kaleb Velásquez here at [facility]. Therefore, I will send you a copy of this letter, as well as Dr. Velásquez. Please allow me to briefly review Ms. Evans' history, as well as my evaluations, findings, and suggestions. Ms. Evans is a 42-year-old woman with a longstanding history of low back pain who had been previously treated at the [facility] prior to my arrival at [facility]. She states that she has had the pain for many years, but that it became more prominent in 1992, with a gradual onset. The pain is described as an aching low back pain which radiates at times to the thighs and calves. She feels that the left side of her body is weak. She feels she walks with a limp secondary to a shortened right leg which is approximately 1" shorter than the left according to Ms. Evans. In addition to her chronic back pain, she has intermittent headaches which are sharp and shooting, vary from right to left to band like, and are unpredictable and inconsistent. They are not associated with an aura or scintillating phenomena. Over the years Ms. Evans has had a variety of treatments for her pain problems. These include a variety of short-acting opioids, muscle relaxants, anti-inflammatories, and at one time she was on a Methadone cocktail administered through the [facility] here. From reviewing her previous treatment notes and from discussing her case with staff members who were here during that time, Ms. Evans was compliant with her treatment in terms of medications at the [facility]. Additionally, Ms. Evans states that physical therapy has not been helpful for her. She states she has never seen a psychologist other than for an evaluation in terms of her chronic pain. Complicating Ms. Evans' chronic pain history is her significant psychiatric history. She carries a variety of different diagnoses, including obsessive-compulsive disorder (she notes that she likes to have things in order and she has certain cleaning rituals she participates in), diagnosis of bipolar affective disorder, diagnosis of AXIS II disorders, and possible separate diagnosis of some type of depression. Over the years she has seen a variety of psychiatrists and has tried a variety of medications including Tegretol, Symerton, Amitriptyline, and other antidepressants. CURRENT MEDICATIONS: 1. Zoloft, 100 mg q am 2. Trazodone prn basis at hs. 3. Premarin, 0.625 mg a day. She feels that the Zoloft works well to control her chip symptoms. She notes that she has not had chip in the recent past. During and prior to her visit today, Ms. Evans completed the [facility] questionnaire which contains information regarding her past medical history, past surgical history, review of systems, further pain descriptors, family history, and social history. Your referral note to Dr. Her and Dr. Velásquez also summarizes those areas nicely, so I will only briefly mention the high points. Ms. Evans has a past medical history, in addition to what is mentioned above, of being born with a clubbed foot, undergoing breast implants and removal on three separate occasions, bladder surgery, and hysterectomy. SOCIAL HISTORY: As noted. She states she has been five times and five times. She states she has been in a long-term seven-year relationship, monogamous with one man, which has recently ended. She has moved to [place] and is now living with an ex-'s mother. 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 She smokes one pack of cigarettes a day and states that when she tries to quit she becomes depressed. She states she has not used alcohol or illegal drugs in many years, as she found that it was an unhealthy lifestyle. PHYSICAL EXAMINATION: Sosa findings are as follows: Weight 162.5 lbs., BP 132/60, pulse 92, respirations 16, temp 36.3. Ms. Evans has an odor of tobacco. She has numerous pain behaviors exhibited during the history and physical examination with numerous changes in position and grimaces. Ms. Evans has normal upper extremity and cervical spine range of motion. She has guarded lumbosacral range of motion which was difficult to determine what true end range is. Similarly, her lower extremity range of motion is guarded with most movements. Ms. Evans is able to squat and rise, hop on one foot, toe and heel walk with some difficulty, and perform tandem walk also with some difficulty. Romberg is negative. Ijwrzz-uyfv-hegpgg is normal. On examination of her chest she has crackles on bases which clear somewhat with coughing. Heart: Regular rate and rhythm, without murmur or gallop. Abdomen: Has a few scars on it, including what appear to be portal scars, she underwent recent cholecystectomy. There are normal bowel sounds and no tenderness on palpation to any quadrant. The most significant finding on musculoskeletal examination, in addition to the guarding in the lower half of the body, is a positive fibromyalgia screen with 13/18 tender points being positive and 0/3 control being positive. This clearly meets the criteria for the 1998 ACR criteria for fibromyalgia. On neurologic examination, cranial nerves are grossly intact. Sensation is intact to light touch and vibration in all four extremities. DTRs are 2+ in the upper and lower extremities, Babinski elicits a downgoing great toe, and there are no focal motor weaknesses, though Ms. Evans does tend to have some give-away weakness in the left lower extremity. On review of diagnostic tests available to me today, a CT scan of the lumbar spine dated 03/17/96 reveals mild diffuse bulging of the lumbar disks; mild to moderate bilateral L4-5 facet degenerative change, left greater than right; and some fullness in the abdomen. An MRI scan dated 05/06/93 of the lumbar spine has the impression of "lumbar MRI within normal limits." IMPRESSION: 1. Fibromyalgia by 1990 [employer] [employer] criteria. 2. Significant psychiatric history with diagnosis of bipolar affective disorder and obsessive-compulsive disorder. 3. Previous efforts at multidisciplinary pain care were less than fully successful. 4. Recent orthopedic evaluation with no evidence of a surgical lesion. RECOMMENDATIONS: Today Ms. Evans and I had a long conversation about options for her management. I do not believe that another course of physical therapy is reasonable, as she has had numerous courses of physical therapy with minimal success. I do believe it would be reasonable to refer her to see a psychologist or other mental health professional specifically for the goal of instructing Ms. Evans in coping strategies for her chronic ongoing pain condition. One option if Ms. Evans does indeed transfer her care from Internal Medicine here at [facility], would be for her to see Vaishnavi Hernandez, Psychologist, in the Department of Internal Medicine here. Ms. Evans' primary motivation for her appointment today, however, appears to be an interest in obtaining opioid medications for her pain control. I informed Ms. Evans that here at the [facility] we do not prescribe opioids for patients who do not have a primary care physician who would be willing to assume writing the medications once they are stable. Additionally, I let her know that we do not prescribe opioids for patients who do not require other services through the [facility]. Given the uncertainty of her primary care physician situation, and the fact that Ms. Evans is not particularly a candidate for any other pain management services here, I do not feel that my writing prescriptions for opioids at this time would make much sense. However, it may be that Ms. Evans functions better if she is on chronic opioids than without them. If they were to be prescribed for her, I would suggest prescribing them with a time-contingent dosing of a long-acting opioid. Potentially one could use the "pain cocktail" formulation where a Methadone dose is placed in a flavored vehicle and the volume of the vehicle is not adjusted, as the dose is adjusted without the patient's specific knowledge of the dose. Certainly if opioid therapy were to be undertaken, it should only be in the context of the appropriate opioid contract in concordance with the 1995 intractable pain act here in [place]. I agreed with Ms. Evans that should she establish care with Dr. Velásquez here at [facility], I would be happy to discuss her care with him at that point. In the meantime, I have nothing additional or specific to offer for Ms. Evans' care. Thank you very much for your referral of Ms. Evans to the [facility] here at [facility]. If you have any questions or concerns, please do not hesitate to give me a call at [phone]. Monroe Pruitt M.D. Automotive Refinisher, Anesthesiology Director of [facility] BRS:mau cc: Kaleb Velásquez M.D. Automotive Refinisher, Medicine Richie Her M.D. Automotive Refinisher, Department of Orthopedics and Rehabilitation nterface, Cardiology Fellow In - 02/28/2006 3:08 AM PSTCLINIC DATE: 11/05/97 PHONE CALL: Litzy called today requesting more Vicodin. She wanted it called to [facility]. I spoke with Dr. Her in regard to this and he declined the request. I called the patient at 16:15 and left a message to that effect. The phone number is [phone]. Lindsay Romeo R.N. Orthopedics HALLIE/emily P cc: documente d in this encounter Plan of Treatment Not on filedocumented as of this encounter Visit Diagnoses Not on filedocumented in this encounter
--- OUTSIDE RECORDS SUMMARY | ~2019-03-05 | XMS | Encounter Summary ---
Demographics + + + | Address | [address] | | | [place] [address] | + + + | Home Phone [...] Author + + + | Author | [facility] | + + + | Organization | [facility] | + + + | Address | Unknown | + + + | Phone | Unavailable | + + + Support + + + + + | Name | Relationship | Address | Phone | + + + + + | Zaida Putnam | ECON | [address] | | | | | [place], | | | | | [place] [address] | | + + + + + Care Team Providers + +------+ + | Care Aerial Sprayer Name | Role | Phone | + +------+ + PCP | Unavailable | + +------+ + Encounter Details +--------+ + + + + | Date | Type | Department | Care Team | Description | +--------+ + + + + | 10/26/ | Office | [facility] | Note, [...] as of this encounter Progress Notes Interface, [employer] In - 02/28/2006 3:08 AM PSTCLINIC DATE: 10/26/97 SUBJECTIVE: Ms. Evans is a 42-year-old woman who is new to our clinic who comes in today complaining of low back pain and bilateral hip pain over the last four years. She states the hip pain is essentially equal in both sides. She states this is located over the trochanter as well as in the buttock. She denies significant thigh pain or leg pain. She states that the hips currently seem approximately equal or slightly worse than the low back itself. She denies a significant course of leg pain over the last several years. She has had a complicated treatment history, but has tried almost every non-surgical modality that I am aware of. In particular she has been seen here previously in the [facility] Management [facility] with use of medical regimen including Methadone which she states helped, and she is seeking re-referral to this protocol. She has been treated most recently by a family medicine service in [place], [place]. She states she has had injections many times including trigger point injections and epidural steroid injections, neither of which helped. She states she has had local trochanteric injections which have helped. She states the last of these was approximately two weeks ago on the left. She has tried physical therapy regimens as well as medication regimens including Lortab, Vicodin and the Methadone described above. She is currently taking Tylenol #3. She has been using a lumbar corset as well with some improvement. She has no other complaints of note today. PAST MEDICAL HISTORY: 1. Fibromyalgia. 2. Obsessive compulsive disorder. 3. Bipolar disorder. PAST SURGICAL HISTORY: 1. Tonsillectomy. 2. D&C. 3. Tubal ligation. 4. Partial hysterectomy. 5. Lumpectomies on the right breast on two occasions. 6. Breast implants placed in 1983. 7. Bladder neck support in 1996. 8. Arthroscopic surgery on the right knee. 9. Gallbladder surgery last year. CURRENT MEDICATIONS: 1. Premarin. 2. Zoloft. 3. Keflex which she started recently for a small foot infection for which she already has a followup scheduled. MEDICATION ALLERGIES: She states she allergies to Motrin, Elavil, other NSAIDS, amitriptyline, all of which produce a variety of reactions including hives, stuttering and gastritis. 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 She has not been working over the last four years. She does smoke, although she denies significant alcohol use. REVIEW OF SYSTEMS: Otherwise negative. FAMILY HISTORY: Non-contributory. PHYSICAL EXAMINATION: Ms. Evans has no masses over the posterior lumbar spine or SI joints. She has distinct tenderness to palpation in this region. There is no surgical incision or other deformities of the skin. She has good flexibility with ability to forward flex at least 60 degrees of the lumbar spine and extend approximately 20. She has normal axial rotation and lateral bend. She has no tension signs on either side. Neurologic examination reveals 5/5 strength throughout on the right in the lower extremity. She has breakaway weakness in the left, although she distinctly is able to fire every muscle group, although she states that this is painful. Sensation is very difficult to exam. She relates that she has a non-dermatomal loss of sensation in a band like distribution below the knee. She does describe lateral and medial longitudinal oval regions of the leg which are also paresthetic. Deep tendon reflexes are very brisk measuring 2+ to 3 at the knees and 2/4 at the ankles. Toes are downgoing. There is no clonus. X-RAYS were not obtained today; however, prior studies were reviewed. These included an MRI from 1993 which to my evaluation is essentially normal. In addition a CT scan of the lumbar spine was reviewed from approximately a year ago. This shows mild degeneration of the facet joints, but no evidence of neurologic compression and no evidence of herniated disc. IMPRESSION: Mechanical low back pain with osteoarthritis of the lumbar spine. She shows no evidence of neurologic compromise at this time. RECOMMENDATION: Continued conservative management. I do not feel she is an appropriate surgical candidate given the lack of neurologic symptoms and her fairly unimpressive imaging studies. In addition, her psychiatric history would be a bad prognostic feature if surgical treatment were entertained. I feel that she would be best served by referral to the [facility] and I have scheduled this for her today. I will not schedule a return appointment for her at this time, but I am always happy to see her back and she understands this and will call us if she desires further evaluation. Richie Her M.D. Manager Foreign, Department of Orthopedics and Rehabilitation DANELLE/emily P documented in this encounter Plan of Treatment Not on filedocumented as of this encounter Visit Diagnoses Not on filedocumented in this encounter"
--- OUTSIDE RECORDS SUMMARY | ~2019-03-05 | XMS | Encounter Summary ---
Demographics + + + | Address | [address] | | | [place] [address] | + + + | Home Phone | | + + + | Preferred Language | Unknown | + + + | Marital Status | Single | + + + | Mosque Affiliation | Unknown | + + + | Race | Unknown | + + + | Ethnic Group | Unknown | + + + Author + + + | Author | [facility] | | | and [place] | + + + | Organization | [facility] | | | and [place] [...] Team Providers + +------+ + | Care Fabric Normalizer Name | Role | Phone | + +------+ + | Timothy Elmore | PCP | | + +------+ + Reason for Visit + + + | Reason | Comments | + + + | Referral (Follow up) | LT Knee MR (PRMCE) -- APPROVED | + + + | Other | See comments | + + + Encounter Details +--------+ + + + + | Date | Type | Department | Care Team | Description | +--------+ + + + + | 06/21/ | Telephone | [facility] | Jacklyn, | Referral (Follow up) | | 2016 | | [facility] | MD [address] | (LT Knee MR (PRMCE) | | | | [address] | -- APPROVED); Other | | | | [address] | [place] [address] | (See comments) | | | | [address] | [phone] | | | | | [phone] | | | +--------+ + + + [...]
--- OUTSIDE RECORDS SUMMARY | ~2019-03-05 | XMS | Encounter Summary ---
Demographics + + + | Address | [address] | | | [place] [address] | + + + | Home Phone [...] [place], | | | | | [place] [address] | | + + + + + Care Team Providers + +------+ + | Care Computer Programmer Chief Name | Role | Phone | [...] as of this encounter Progress Notes Interface, Lithographic Camera Operator In - 02/14/2006 5:12 AM PSTCLINIC DATE: [...]
--- OUTSIDE RECORDS SUMMARY | ~2019-03-05 | XMS | Encounter Summary ---
Demographics + + + | Address | [address] | | | [place] [address] | + + + | Home Phone [...] [place], | | | | | [place] [address] | | + + + + + Care Team Providers + +------+ + | Care Arts And Sciences Dean Name | Role | Phone | + [...] [id number] | | | | | | [place], [place] | | | | | | [address] | | | | | | [phone] | | | +--------+ + + + [...] OF | [address] | [place] [address] | | | PATHOLOGY | YOKASTA BUTCHER | | | + + + + + documented in this encounter Visit Diagnoses Not on filedocumented in this encounter"
--- OUTSIDE RECORDS SUMMARY | ~2019-03-05 | XMS | Encounter Summary ---
Demographics + + + | Address | [address] | | | [place] [address] | + + + | Home Phone [...] Author + + + | Author | [facility] | | | and [place] | + + + | Organization | [facility] | | | and [place] [...] Team Providers + +------+ + | Care Brass Pickler Name | Role | Phone | + [...] limb, left | [address] | [address] | | | | | Procedures | [place] | Phone: | | | | | MRI Knee | [address] | [phone] | | | | | Left wo | Phone: | Fax: | | | | | Contrast | [phone] | [phone] | | | | | | Fax: | | | | | | | [phone] | | +--------+--------+ + + + + [...] [place] | | | | | | [address] | [address] Phone: | | | | | | Phone: | [phone] | | | | | | [phone] | Fax: | | | | | | Fax: | [phone] | | | | | | [phone] | | +--------+ + + + + + Encounter Details +--------+---------+ + + + | Date | Type | Department | Care Team | Description | +--------+---------+ + + + | 06/13/ | Office | [facility] | [place], | Nerve entrapment of | | 2016 | Visit | [facility] | MD [address] | lower limb, left | | | | [address] | (Primary Dx) | | | | [address] | [place] | | | | | [address] | [phone] | | | | | [phone] | | | +--------+---------+ + + + [...] NRS Pain Meds 2 OSWESTRY INDEX EQ5D 67480 VAS 60 SURGICAL RISK FACTORS: Diabetes No BMI Body mass index is 22.61 kg/(m^2). 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 S/P LT Knee Replacement 2011 in [place] with Revision surgery [address] Granados. She continues t o have significant pain lateral aspect LT knee. The [facility] EMR was reviewed for relevant information [...] was spent in face to fa ce substance abuse counselor and advice to patient. This medical [...]
--- OUTSIDE RECORDS SUMMARY | ~2019-03-05 | XMS | Encounter Summary ---
Demographics + + + | Address | [address] | | | [place] [address] | + + + | Home Phone [...] [place], | | | | | [place] [address] | | + + + + + Care Team Providers + +------+ + | Care Textile Machine Maintenance Mechanic Name | Role | Phone | + +------+ + PCP | Unavailable | + +------+ + Encounter Details +--------+ + + + + | Date | Type | Department | Care Team | Description | +--------+ + + + + | 06/26/ | Office | General Internal | Note, Outpatient | Progress Note | | 1994 | Visit-Trans | Medicine [address] | Clinic | | | | merritt | [facility] | | | | | | Mailcode: [id number] | | | | | | Outpatient Clinic | | | | | | [facility], [address] | | | | | | [place], [place] | | | | | | [address] | | | | | | [phone] | | | +--------+ + + + [...] as of this encounter Progress Notes Interface, Medical Laboratory Technicians In - 06/06/2006 5:07 AM PDT CLINIC [...] addition, she remains active in her local pentecostal and is in the process of moving [...] 2. Bladder dysfunction, resolved. John Mulligan M.D. Data Collection Specialist, Anesthesiology Director, [facility] HUI /efren A documented in this encounter Plan of Treatment Not on filedocumented as of this encounter Visit Diagnoses Not on filedocumented in this encounter"
--- OUTSIDE RECORDS SUMMARY | ~2019-03-05 | XMS | Encounter Summary ---
Demographics + + + | Address | [address] | | | [place] [address] | + + + | Home Phone [...] [place], | | | | | [place] [address] | | + + + + + Care Team Providers + +------+ + | Care Emt Dispatcher Name | Role | Phone | [...]
--- OUTSIDE RECORDS SUMMARY | ~2019-03-05 | XMS | Encounter Summary ---
Demographics + + + | Address | [address] | | | [place] [address] | + + + | Home Phone | | + + + | Preferred Language | Unknown | + + + | Marital Status | Single | + + + | Yarsanism Affiliation | Unknown | + + + | Race | White | + + + | Ethnic Group | Not or | + + + Author + + + | Author | [facility] | + + + | Organization | [facility] | + + + | Address | Unknown | + + + | Phone | Unavailable | + + + Support + + + + + | Name | Relationship | Address | Phone | + + + + + | Zaida Putnam | ECON | [address] | | | | | [place], | | | | | [place] [address] | | + + + + + Care Team Providers + +------+ + | Care Health Information Coder Name | Role | Phone | + +------+ + PCP | Unavailable | + +------+ + Encounter Details +--------+ + + + + | Date | Type | Department | Care Team | Description | +--------+ + + + + | 11/26/ | ED Progress | [facility] | [...]
--- OUTSIDE RECORDS SUMMARY | ~2019-03-05 | XMS | Encounter Summary ---
Demographics + + + | Address | [address] | | | [place] [address] | + + + | Home Phone [...] Author | [facility] | + + + | Organization | [facility] | + + + | Address | Unknown | + + + | Phone | Unavailable | + + + Support + + + + + | Name | Relationship | Address | Phone | + + + + + | Zaida Putnam | ECON | [address] | | | | | [place], | | | | | [place] [address] | | + + + + + Care Team Providers + +------+ + | Care Shop Coordinator Name | Role | Phone | + +------+ + PCP | Unavailable | + +------+ + Encounter Details +--------+ + + + + | Date | Type | Department | Care Team | Description | +--------+ + + + + | 06/15/ | Office | [facility] | Note, [...] as of this encounter Progress Notes Interface, Air Vice Marshal In - 02/09/2006 5:05 AM PSTCLINIC DATE: 06/15/1998 INTERNAL MEDICINE CLINIC TELEPHONE CONVERSATION CALLER: Patient's relative. I spoke with a relative of Litzy Evans today who called concerned that the patient has been misusing her medications. I have been treating Ms. Evans for fibromyalgia over the last six months with MS Funk for her pain. This was under a contract whereby Ms. Evans was to have me as her sole provider and was not to misuse or abuse the medication. According to her relative, who shall remain nameless for her own protection, Ms. Evans has apparently been seeking drugs at numerous medical centers [facility]. Apparently, she also knows to get her prescriptions from different pharmacies. She has been feigning fibromyalgia based on a medical text which she owns and knows to give certain answers on interview, such that she will get the right medication that she is seeking. Apparently, the patient has already run out of the medications that I had prescribed here only one week ago and she has been purchasing medications off the street to supply her habit. 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 According to this relative, Ms. Evans' recent story of having been robbed of all of her medications is false. No such thing ever occurred and Ms. Evans had used that story in order to obtain more medications from me. In response to this person's concerns, I first appreciated and congratulated her for her courage. I have attempted to contact the pharmacy board who told me they are not able to compose a drug alert since that program is no longer in existence. I have also contacted Kait Oneal's office and the [facility] pharmacy to have a warning screen appear, at least within [facility]. I contacted [facility] and [facility] in [place] (telephone # [phone] and [phone]) to warn them of her potential misuse of medication. Moreover, I am concerned because she has a prescription for MS Contin in hand which she is supposed to fill for June and I wanted to make sure they knew to confiscate that prescription and not have it filled. Lastly, I have spoken with Nelly Hamilton, our clinical psychiatric social worker, who has taken the task in hand as far as alerting Social Security and Medicare of potential fraud. Hui Milton M.D. TORI/kiah cc: Doris Maurice [facility] Internal Medicine Miranda García [facility] Internal Medicine Andria Hamilton [facility] Internal Medicine Kait Oneal [facility] Wallace Szymanski M.D. [facility] Internal Medicine 5 :05 AM PSTdocumented in this encounter Plan of Treatment Not on filedocumented as of this encounter Visit Diagnoses Not on filedocumented in this encounter"
--- OUTSIDE RECORDS SUMMARY | ~2019-03-05 | XMS | Encounter Summary ---
Demographics + + + | Address | [address] | | | [place] [address] | + + + | Home Phone | | + + + | Preferred Language | Unknown | + + + | Marital Status | Single | + + + | Evangelical Affiliation | Unknown | + + + | Race | Unknown | + + + | Ethnic Group | Unknown | + + + Author + + + | Author | [facility] | | | and [place] | + + + | Organization | [facility] | | | and [place] | [...] Team Providers + +------+ + | Care V Belt Curer Name | Role | Phone | + [...] limb, left | [address] | [address] | | | | | Procedures | [place] | Phone: | | | | | MRI Knee | [address] | [phone] | | | | | Left wo | Phone: | Fax: | | | | | Contrast | [phone] | [phone] | | | | | | Fax: | | | | | | | [phone] | | +--------+--------+ + + + + [...] [place] | | | | | | [address] | [address] Phone: | | | | | | Phone: | [phone] | | | | | | [phone] | Fax: | | | | | | Fax: | [phone] | | | | | | [phone] | | +--------+ + + + + + Encounter Details +--------+---------+ + + + | Date | Type | Department | Care Team | Description | +--------+---------+ + + + | 06/13/ | Office | [facility] | [place], | Nerve entrapment of | | 2016 | Visit | [facility] | MD Jose [address] | lower limb, left | | | | [address] | [address] | (Primary Dx) | | | | [address] [place] | [place] | | | | | [address] | [phone] | | | | | [phone] | | | +--------+---------+ + + + [...] NRS Pain Meds 2 OSWESTRY INDEX EQ5D 19165 VAS 60 SURGICAL RISK FACTORS: Diabetes No BMI Body mass index is 22.61 kg/(m^2). 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 S/P LT Knee Replacement 2011 in [place] with Revision surgery [address] Granados. She continues t o have significant pain lateral aspect LT knee. The [facility] EMR was reviewed for relevant information regarding [...] was spent in face to fa ce job placement counselor and advice to patient. This medical [...]
--- OUTSIDE RECORDS SUMMARY | ~2019-03-05 | XMS | Encounter Summary ---
Demographics + + + | Address | [address] | | | [place] [address] | + + + | Home Phone [...] | Author | [facility] | | | and [place] | + + + | Organization | [facility] | | | and [...] Team Providers + +------+ + | Care Dyslexia Teacher Name | Role | Phone | [...] [place] | | | | | [address] | [phone] | | | | | [phone] | | | +--------+ + + + [...]
--- OUTSIDE RECORDS SUMMARY | ~2019-03-05 | XMS | Encounter Summary ---
Demographics + + + | Address | [address] | | | [place] [address] | + + + | Home Phone | | + + + | Preferred Language | Unknown | + + + | Marital Status | Single | + + + | Mormonism Affiliation | Unknown | + + + | Race | White | + + + | Ethnic Group | Not or | + + + Author + + + | Author | [facility] | + + + | Organization | [facility] | + + + | Address | Unknown | + + + | Phone | Unavailable | + + + Support + + + + + | Name | Relationship | Address | Phone | + + + + + | Zaida Putnam | ECON | [address] | | | | | [place], | | | | | [place] [address] | | + + + + + Care Team Providers + +------+ + | Care Target Trimmer Name | Role | Phone | + [...] [id number] | | | | | | [place], [place] | | | | | | [address] | | | | | | [phone] | | | +--------+ + + + [...] | + + + + + | [facility] | [address] | [place] [address] | | | PATHOLOGY | [address] [...] | + + + + + | [facility] | [address] | [place] [address] | | | PATHOLOGY | [address] [...] | + + + + + | [facility] | [address] | [place] [address] | | | PATHOLOGY | [address] [...] | + + + + + | [facility] | [address] | [place] [address] | | | PATHOLOGY | [address] [...] | + + + + + | [facility] | [address] | [place] [address] | | | PATHOLOGY | [address] [...] | + + + + + | [facility] | [address] | [place] [address] | | | PATHOLOGY | [address] | | | + + + + + documented in this encounter Visit Diagnoses Not on filedocumented in this encounter"
--- OUTSIDE RECORDS SUMMARY | ~2019-03-05 | XMS | Encounter Summary ---
Demographics + + + | Address | [address] | | | [place] [address] | + + + | Home Phone [...] + + + | Author | [facility] | + + + | Organization | [facility] | + + + | Address | Unknown | + + + | Phone | Unavailable | + + + Support + + + + + | Name | Relationship | Address | Phone | + + + + + | Zaida Putnam | ECON | [address] | | | | | [place], | | | | | [place] [address] | | + + + + + Care Team Providers + +------+ + | Care Property Assistant Name | Role | Phone | [...] as of this encounter Progress Notes Interface, Apartment Leasing Manager In - 02/28/2006 3:08 AM PSTCLINIC DATE: [...] recently by a family medicine service in [place], [place]. 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 Richie Her M.D. Oceanography Professor, Department of Orthopedics and Rehabilitation DANELLE/emily P documented in this encounter Plan of Treatment Not on filedocumented as of this encounter Visit Diagnoses Not on filedocumented in this encounter"
--- OUTSIDE RECORDS SUMMARY | ~2019-03-05 | XMS | Encounter Summary ---
Demographics + + + | Address | [address] | | | [place] [address] | + + + | Home Phone | | + + + | Preferred Language | Unknown | + + + | Marital Status | Single | + + + | Buddhist Affiliation | Unknown | + + + [...] [place], | | | | | [place] [address] | | + + + + + Care Team Providers + +------+ + | Care Nurse Manager Name | Role | Phone | + +------+ + PCP | Unavailable | + +------+ + Encounter Details +--------+ + + + + | Date | Type | Department | Care Team | Description | +--------+ + + + + | 12/25/ | Office | UNKNOWN DEPARTMENT | Note, Outpatient | Progress Note | | 1993 | Visit-Trans | [address] | Clinic | | | | [place] | [address] | | | | | | [place], [place] | | | | | | [address] | | | +--------+ + + + [...] as of this encounter Progress Notes Interface, Division Chief In - 06/14/2006 5:08 AM PDT CLINIC [...] drink alcohol. 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 She is , currently living with a boyfriend/roommate in [place]. She is subsisting on Welfare, she has [...] management of somatization disorder. Faisal Grijalva M.D. Unindentured Apprentice, Neurology PIYUSH/ifrah cc: LEILANI ACOSTA MD [address] [place] [address] documented in this encounter Plan of Treatment Not on filedocumented as of this encounter Visit Diagnoses Not on filedocumented in this encounter
--- OUTSIDE RECORDS SUMMARY | ~2019-03-05 | XMS | Encounter Summary ---
Demographics + + + | Address | [address] | | | [place] [address] | + + + | Home Phone [...] [place], | | | | | [place] [address] | | + + + + + Care Team Providers + +------+ + | Care Custodial Aide Name | Role | Phone | + +------+ + PCP | Unavailable | + +------+ + Encounter Details +--------+ + + + + | Date | Type | Department | Care Team | Description | +--------+ + + + + | 06/26/ | Office | General Internal | Note, Outpatient | Progress Note | | 1994 | Visit-Trans | Medicine [address] | Clinic | | | | [place] | [facility] | | | | | | Mailcode: [id number] | | | | | | Outpatient Clinic | | | | | | [facility], [address] | | | | | | [place], [place] | | | | | | [address] | | | | | | [phone] | | | +--------+ + + + [...] as of this encounter Progress Notes Interface, Decorator Inspector In - 06/06/2006 5:07 AM PDT CLINIC [...] addition, she remains active in her local sikh and is in the process of moving [...] 2. Bladder dysfunction, resolved. John Mulligan M.D. Customer Greeter, Anesthesiology Director, Pain Management Services HUI /efren A documented in this encounter Plan of Treatment Not on filedocumented as of this encounter Visit Diagnoses Not on filedocumented in this encounter"
--- OUTSIDE RECORDS SUMMARY | ~2019-03-05 | XMS | Encounter Summary ---
Demographics + + + | Address | [address] | | | [place] [address] | + + + | Home Phone [...] Author + + + | Author | [facility] | + + + | Organization | [facility] | + + + | Address | Unknown | + + + | Phone | Unavailable | + + + Support + + + + + | Name | Relationship | Address | Phone | + + + + + | Zaida Putnam | ECON | [address] | | | | | [place], | | | | | [place] [address] | | + + + + + Care Team Providers + +------+ + | Care Neighborhood Worker Name | Role | Phone | + +------+ + PCP | Unavailable | + +------+ + Encounter Details +--------+ + + + + | Date | Type | Department | Care Team | Description | +--------+ + + + + | 03/09/ | Office | [facility] | Note, [...] as of this encounter Progress Notes Interface, Lamination Assembler In - 02/17/2006 3:01 AM PSTCLINIC DATE: 03/09/1998 INTERNAL MEDICINE CLINIC SUBJECTIVE: This is a patient of Mp Milton who comes in today with pain exacerbation secondary to her fibromyalgia and chronic low back pain. At the last visit she made a verbal commitment for management of her chronic pain, which included an agreement that Mp was her sole Vicodin account manager. She attempted to make an appointment with Mp today, but she is not in clinic, and the patient comes in today with exacerbation of her pain. She reports her mother has been quite ill at home and has fallen twice. Yesterday she fell and fractured her arm. Litzy has had to provide a greater amount of care, which involves lifting her mother, who is quite large. She is also in some general distress over the problems her mother is having and comes in requesting three things: The first is to have her wart on her right hand refrozen. Secondly, she wants refill of her Premarin, which she ran out of approximately two weeks ago. She also wants a holiday from her Vicodin contract. OBJECTIVE: Weight is 163 lb. Blood pressure is 136/98. Pulse is 88. GENERAL: She is in mild distress. She is talking quickly and in a defensive posture. No other examination is performed today. ASSESSMENT AND PLAN: 1. Wart on the right hand, second finger. We refroze that today with liquid nitrogen. 2. Refill of Premarin per previous dosing regimen. 3. Chronic pain. She was given a prescription for #12 Vicodin tablets for this acute exacerbation in the context of her mother's illness. It was again reiterated to Ms. Evans that this is a poor pattern to begin establishing in this clinic, and pain management will more optimally be managed with psychiatric interventions, as previously a trial of methadone was not helpful. John Jenkins M.D. Wallace Szymanski M.D. PMD/ck cc: MP MILTON MD A M PSTdocumented in this encounter Plan of Treatment Not on filedocumented as of this encounter Visit Diagnoses Not on filedocumented in this encounter"
--- OUTSIDE RECORDS SUMMARY | ~2019-03-05 | XMS | Encounter Summary ---
Demographics + + + | Address | [address] | | | [place] [address] | + + + | Home Phone | | + + + | Preferred Language | Unknown | + + + | Marital Status | Single | + + + | Mosque Affiliation | Unknown | + + + | Race | Unknown | + + + | Ethnic Group | Unknown | + + + Author + + + | Author | [facility] | | | and [place] | + + + | Organization | [facility] [...] Team Providers + +------+ + | Care Railroad Wheels And Axles Inspector Name | Role | Phone | [...] [id number] | | | | | [facility] [address] | [place] [address] | | | | | [address] [place] | [phone] | | | | | [address] | | | | | | [phone] | | | +--------+ + + + [...] [place] | | | | [address] | | CORE | | | | [place] [address] | | LABORATORY | | | | [...] + + | [place] | [address] [facility] [address] | [place] [address] | [phone] | | CORE LABORATORY (I) | | [...] (I) | | | | [place] [address] | | | | + + + + + + + + | Specimen | + + | Blood specimen | | (specimen) | + + + + + + + | Performing | Address | City/State/Zipcode | Phone Number | | Organization | | | | + + + + + | [facility] | [address] [facility] | [place] [address] | [phone] | | CORE LABORATORY (I) | | [...] + + | [place] | [address] [facility] | [place] [address] | [phone] | | CORE LABORATORY (I) | | | | + + + + + documented in this encounter Visit Diagnoses + + | Diagnosis | + + | 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
--- OUTSIDE RECORDS SUMMARY | ~2019-03-05 | XMS | Encounter Summary ---
Demographics + + + | Address | [address] | | | [place] [address] | + + + | Home Phone [...] [place], | | | | | [place] [address] | | + + + + + Care Team Providers + +------+ + | Care Saw Sharpener Name | Role | Phone | + [...] [facility] | | | | | [address] | [facility] [place] | | | | | Loop Mailcode: | [address] | | | | | [id number] Outpatient | [phone] | | | | | Clinic Building | | | | | | [place], [place] | | | | | | [address] | | | | | | [phone] | | | +--------+ + + + [...] | | + +---------+ + + | [facility] DEPARTMENT | | | | | RADIOLOGY | | | | + +---------+ + + documented in this encounter Visit Diagnoses Not on filedocumented in this encounter"
--- OUTSIDE RECORDS SUMMARY | ~2019-03-05 | XMS | Encounter Summary ---
Demographics + + + | Address | [address] | | | [place] [address] | + + + | Home Phone | | + + + | Preferred Language | Unknown | + + + | Marital Status | Single | + + + | Christianity Affiliation | Unknown | + + + | Race | Unknown | + + + | Ethnic Group | Unknown | + + + Author + + + | Author | and [facility] | | | and [place] | + + + | Organization | and [facility] | | | and [...] Team Providers + +------+ + | Care College And Career Counselor Name | Role | Phone | + [...] | | 2014 | | [place] | [address] [place] | Weight loss; | | | | ENDOCRINOLOGY [address] | [address] | Pancreatic | | | | [address] | [place] [address] | insufficiency; | | | | [address] [place] | [phone] | Diarrhea | | | | [address] | | | | | | [phone] | | | +--------+ + + + [...] | CORE | | | | [place] [address] | | LABORATORY | | | | [...] + + | [place] | [address] | [place] [address] | [phone] | | CORE LABORATORY (I) | | [...] [place] | | | | | | [address] | | | | + + + + + + + + | Specimen | + + | Blood specimen | | (specimen) | + + + + + + + | Performing | Address | City/State/Zipcode | Phone Number | | Organization | | | | + + + + + | [facility] [place] | [address] | [place] [address] | [phone] | | CORE LABORATORY (I) | | [...] CARIE | | | Fasting | [facility] [address] | | [place] | | | [...] | [address] | [place] [address] | [phone] | | [facility] (I) | | [...] [place] | | | | | | [address] | | | | + + + + + + + + | Specimen | + + | Blood specimen | | (specimen) | + + + + + + + | Performing | Address | City/State/Zipcode | Phone Number | | Organization | | | | + + + + + | [facility] [place] | [address] | [place] [address] | [phone] | | CORE LABORATORY (I) | | [...]
--- OUTSIDE RECORDS SUMMARY | ~2019-03-05 | XMS | Encounter Summary ---
Demographics + + + | Address | [address] | | | [place] [address] | + + + | Home Phone [...] + + + | Author | [facility] | + + + | Organization | [facility] | + + + | Address | Unknown | + + + | Phone | Unavailable | + + + Support + + + + + | Name | Relationship | Address | Phone | + + + + + | Zaida Putnam | ECON | [address] | | | | | [place], | | | | | [place] [address] | | + + + + + Care Team Providers + +------+ + | Care Paperhanger Assistant Name | Role | Phone | + +------+ + PCP | Unavailable | + +------+ + Encounter Details +--------+ + + + + | Date | Type | Department | Care Team | Description | +--------+ + + + + | 07/24/ | Office | General Internal | Note, Outpatient | Progress Note | | 1994 | Visit-Trans | Medicine [address] | Clinic | | | | [place] | [facility] | | | | | | Mailcode: [id number] | | | | | | Outpatient Clinic | | | | | | [facility], [address] | | | | | | [place], [place] | | | | | | [address] | | | | | | [phone] | | | +--------+ + + + [...] as of this encounter Progress Notes Interface, Plaster Patternmaker In - 06/05/2006 1:00 AM PDT CLINIC [...] remained quite high including continued attendance of christian and working on rremnj-llk-anixx activities. She denies changes in bladder or [...] 2. Bladder dysfunction, resolved. John Mulligan M.D. Director Of Managed Services, Anesthesiology Director, Pain Management Services PK:bony documented in this encounter Plan of Treatment Not on filedocumented as of this encounter Visit Diagnoses Not on filedocumented in this encounter"
--- OUTSIDE RECORDS SUMMARY | ~2019-03-05 | XMS | Encounter Summary ---
Demographics + + + | Address | [address] | | | [place] [address] | + + + | Home Phone [...] [place], | | | | | [place] [address] | | + + + + + Care Team Providers + +------+ + | Care Elevator Operator Freight Name | Role | Phone | + [...] as of this encounter Progress Notes Interface, Director Medicare Sales In - 02/09/2006 5:05 AM PSTCLINIC DATE: [...]
--- OUTSIDE RECORDS SUMMARY | ~2019-03-05 | XMS | Encounter Summary ---
Demographics + + + | Address | [address] | | | [place] [address] | + + + | Home Phone [...] [place], | | | | | [place] [address] | | + + + + + Care Team Providers + +------+ + | Care Aircrewman Name | Role | Phone | + [...] [address] | | | | | | [place] | | | | | | [address] | | | +--------+ + + + [...] as of this encounter Progress Notes Interface, Learning Design Specialist In - 06/14/2006 5:08 AM PDT [address] [address] [facility] December 25, 1995 LEILANI ACOSTA MD [address] [place] [address] RE:Litzy Evans MR#:[id number] Acosta: Thank you for referring Litzy Evans to the [facility] for evaluation. I found her [...] your kind referral. Sincerely, Faisal Grijalva M.D. Metal Fabricating Supervisor, Neurology JFQ/mrd December 26, 1993 documented in this encounter Plan of Treatment Not on filedocumented as of this encounter Visit Diagnoses Not on filedocumented in this encounter"
--- OUTSIDE RECORDS SUMMARY | ~2019-03-05 | XMS | Encounter Summary ---
Demographics + + + | Address | [address] | | | [place] [address] | + + + | Home Phone [...] + + + | Author | [facility] | + + + | Organization | [facility] | + + + | Address | Unknown | + + + | Phone | Unavailable | + + + Support + + + + + | Name | Relationship | Address | Phone | + + + + + | Zaida Putnam | ECON | [address] | | | | | [place], | | | | | [place] [address] | | + + + + + Care Team Providers + +------+ + | Care Director Of Volunteer Services Name | Role | Phone | + [...] as of this encounter Progress Notes Interface, Receivable Clerk In - 02/21/2006 3:06 AM PSTCLINIC DATE: [...] if she loses her prescription. NOTE: Ms. Evans's interview, physical examination and treatment plan was thoroughly reviewed with Dr. Wallace Szymanski. Hui Milton M.D. Resident, Internal Medicine Wallace Szymanski M.D. Licensed Pharmacist, Internal Medicine TORI/joshua d ocumented in this encounter Plan of Treatment Not on filedocumented as of this encounter Visit Diagnoses Not on filedocumented in this encounter"
--- OUTSIDE RECORDS SUMMARY | ~2019-03-05 | XMS | Encounter Summary ---
Demographics + + + | Address | [address] | | | [place] [address] | + + + | Home Phone [...] Author | [facility] | | | and [place] | + + + | Organization | [facility] | [...] Team Providers + +------+ + | Care Steel Spar Operator Name | Role | Phone | [...] (ArnoldaScvitor | | 2015 | | [address] [facility] | [address] | prep) | | | | [address] | [address] [place] | | | | | [place] | [address] | | | | | [address] | [phone] | | | | | [phone] | | | +--------+ + + + [...]
--- OUTSIDE RECORDS SUMMARY | ~2019-03-05 | XMS | Clinical Summary ---
Demographics + + + | Address | [address] | | | [place] [address] | + + + | Home Phone | | + + + | Preferred Language | Unknown | + + + | Marital Status | Single | + + + | Voodoo Affiliation | Unknown | + + + | Race | Unknown | + + + | Ethnic Group | Unknown | + + + Author + + + | Author | [facility] | | | and [place] | + + + | Organization | [facility] | | | and [...] Team Providers + +------+ + | Care Catalyst Impregnator Name | Role | Phone | + [...] | | | Dtap/Tdap/Td (1 - | 5 | | | | Tdap) | | [...] +--------+ +---------+--------+ | MEDICARE | MEDICA | [id number] | 03/21/18 | [phone] | | Medica | | | RE | | 96-Pre | 5 | | re | | | PART A | | sent | | | | | | AND B | | | | | | + +--------+ +--------+ +---------+--------+ | MEDICAID [place] | MEDICA | [id number] | | [phone] | | Medica | [...] | 4 | [phone] | [place] [address] | | | anastasiya | | | 7 (Home) | | + +--------+ +--------+ + + Advance Directives + + + + + | Type | Date Recorded | Patient | Explanation | | | | Administrative Staff Supervisor | | + + + + + | Power of | | | | | Clinical Data Programmer | | | | + + + [...]
--- OUTSIDE RECORDS SUMMARY | ~2019-03-05 | XMS | Encounter Summary ---
Demographics + + + | Address | [address] | | | [place] [address] | + + + | Home Phone [...] [place], | | | | | [place] [address] | | + + + + + Care Team Providers + +------+ + | Care Windows And Doors Installer Name | Role | Phone | + +------+ + PCP | Unavailable | + +------+ + Encounter Details +--------+ + + + + | Date | Type | Department | Care Team | Description | +--------+ + + + + | 01/01/ | Office | UNKNOWN DEPARTMENT | Note, Outpatient | Progress Note | | 1993 | Visit-Trans | [address] [facility] | Clinic | | | | [address]itt | [address] | | | | | | [place], [place] | | | | | | [address] | | | +--------+ + + + [...] of this encounter Progress Notes Interface, Lead Technical Writer In - 06/14/2006 5:08 AM PDT CLINIC [...] after the above studies. Faisal Grijalva M.D. Data Typist, Neurology JQ:bony cc: DICK ACOSTA MD [address] [address] documented in this encounter Plan of Treatment Not on filedocumented as of this encounter Visit Diagnoses Not on filedocumented in this encounter"
--- OUTSIDE RECORDS SUMMARY | ~2019-03-05 | XMS | Encounter Summary ---
Demographics + + + | Address | [address] | | | [place] [address] | + + + | Home Phone [...] [place], | | | | | [place] [address] | | + + + + + Care Team Providers + +------+ + | Care Enrichment Specialist Name | Role | Phone | [...]
--- OUTSIDE RECORDS SUMMARY | ~2019-03-05 | XMS | Encounter Summary ---
Demographics + + + | Address | [address] | | | [place] [address] | + + + | Home Phone | | + + + | Preferred Language | Unknown | + + + | Marital Status | Single | + + + | Jain Affiliation | Unknown | + + + | Race | Unknown | + + + | Ethnic Group | Unknown | + + + Author + + + | Author | [facility] | | | and [place] | + + + | Organization | [facility] | | | and [place] [...] Team Providers + +------+ + | Care Special Education Teaching Assistant Name | Role | Phone | [...] | | | | ENDOCRINOLOGY [address] | [address] | | | | | [address] | [place] [address] | | | | | [address] [place] | [phone] | | | | | [address] | | | | | | [phone] | | | +--------+ + + + [...]
--- OUTSIDE RECORDS SUMMARY | ~2019-03-05 | XMS | Encounter Summary ---
Demographics + + + | Address | [address] | | | [place] [address] | + + + | Home Phone [...] [place], | | | | | [place] [address] | | + + + + + Care Team Providers + +------+ + | Care Tilt Tray Driver Name | Role | Phone | + +------+ + PCP | Unavailable | + +------+ + Encounter Details +--------+ + + + + | Date | Type | Department | Care Team | Description | +--------+ + + + + | 05/13/ | Results | | Other, Faculty | | | 1998 | Only | | [phone] | | +--------+ + + + + [...] | | + +---------+ + + | [facility] DEPARTMENT OF | | | | | RADIOLOGY | | | | + +---------+ + + documented in this encounter Visit Diagnoses Not on filedocumented in this encounter"
--- OUTSIDE RECORDS SUMMARY | ~2019-03-05 | XMS | Encounter Summary ---
Demographics + + + | Address | [address] | | | [place] [address] | + + + | Home Phone [...] [place], | | | | | [place] [address] | | + + + + + Care Team Providers + +------+ + | Care Geodesist Name | Role | Phone | + [...] of this encounter Progress Notes Interface, Machine Presser In - 02/23/2006 5:02 AM PSTCLINIC DATE: [...] years ago when she read about an [facility] clinic, and presented by self-referral to the [...] medication in September when she moved from [place] to [place] and switched providers. Patient states that since [...] Patient was seen by Dr. Browning in [place], [place], at which time she was given [...] Recommended group therapy. Patient is covered through [facility] and she will investigate possible group therapy at the [facility] system. Patient was seen and interviewed with Dr. Anabelle Garcia. Frederic Koch M.D. Resident, Internal Medicine Anabelle Garcia M.D. Safety Admin Assistant, Psychiatry ELDA/ruby d ocumented in this encounter Plan of Treatment Not on filedocumented as of this encounter Visit Diagnoses Not on filedocumented in this encounter"
--- OUTSIDE RECORDS SUMMARY | ~2019-03-05 | XMS | Encounter Summary ---
Demographics + + + | Address | [address] | | | [place] [address] | + + + | Home Phone | | + + + | Preferred Language | Unknown | + + + | Marital Status | Single | + + + | Sikh Affiliation | Unknown | + + + [...] Team Providers + +------+ + | Care Compensation Coordinator Name | Role | Phone | + +------+ + | Timothy Elmore | PCP | | + +------+ + Reason for Visit + + + | Reason | Comments | + + + | Establish Care | GAS TESTER : Lumbar Spine : Referred by PCP [...] | | and other | [place] | [address] | | | | | examinations | [address] | Phone: | | | | | of body | Phone: | [phone] | | | | | structure | [phone] | Fax: | | | | | Procedures | | [phone] | | | | | CSJ-06/29 | | | +--------+--------+ + + + + Encounter Details +--------+---------+ + + + | Date | Type | Department | Care Team | Description | +--------+---------+ + + + | 08/09/ | Office | [facility] | Tapan Bragg | Left foot drop | | 2015 | Visit | [facility] | MD [address] | (Primary Dx) | | | | [address] [facility] | [address] [place], | | | | | [address] [place] | [place] | | | | | [address] | [phone] | | | | | [phone] | | | +--------+---------+ + + + [...]
--- OUTSIDE RECORDS SUMMARY | ~2019-03-05 | XMS | Encounter Summary ---
Demographics + + + | Address | [address] | | | [place] [address] | + + + | Home Phone [...] [place], | | | | | [place] [address] | | + + + + + Care Team Providers + +------+ + | Care Recreation Specialist Name | Role | Phone | [...] [id number] | | | | | | [place], [place] | | | | | | [address] | | | | | | [phone] | | | +--------+ + + + [...] OF | [address] | [place] [address] | | | PATHOLOGY | [address] | | | + + + + + documented in this encounter Visit Diagnoses Not on filedocumented in this encounter"
--- OUTSIDE RECORDS SUMMARY | ~2019-03-05 | XMS | Encounter Summary ---
Demographics + + + | Address | [address] | | | [place] [address] | + + + | Home Phone [...] Author + + + | Author | [facility] | + + + | Organization | [facility] | + + + | Address | Unknown | + + + | Phone | Unavailable | + + + Support + + + + + | Name | Relationship | Address | Phone | + + + + + | Ziada Putnam | ECON | [address] | | | | | [place], | | | | | [place] [address] | | + + + + + Care Team Providers + +------+ + | Care Larder Cook Name | Role | Phone | + +------+ + PCP | Unavailable | + +------+ + Encounter Details +--------+ + + + + | Date | Type | Department | Care Team | Description | +--------+ + + + + | 12/25/ | Office | UNKNOWN DEPARTMENT | Note, Outpatient | Progress Note | | 1993 | Visit-Trans | [address] [facility] | Clinic | | | | [address] | [address] | | | | | | [place], [place] | | | | | | [address] | | | +--------+ + + + [...] of this encounter Progress Notes Interface, Administrative Professional In - 06/14/2006 5:08 AM PDT CLINIC [...] drink alcohol. 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 She is , currently living with a boyfriend/roommate in [place]. She is subsisting on Welfare, she has [...] management of somatization disorder. Faisal Grijalva M.D. Stitcher Feeder, Neurology PIYUSH/ifrah cc: LEILANI ACOSTA MD [address] [place] [address] documented in this encounter Plan of Treatment Not on filedocumented as of this encounter Visit Diagnoses Not on filedocumented in this encounter
--- OUTSIDE RECORDS SUMMARY | ~2019-03-05 | XMS | Encounter Summary ---
Demographics + + + | Address | [address] | | | [place] [address] | + + + | Home Phone [...] + + + | Author | [facility] | + + + | Organization | [facility] | + + + | Address | Unknown | + + + | Phone | Unavailable | + + + Support + + + + + | Name | Relationship | Address | Phone | + + + + + | Zaida Putnam | ECON | [address] | | | | | [place], | | | | | [place] [address] | | + + + + + Care Team Providers + +------+ + | Care Steel Rule Die Maker Name | Role | Phone | [...] | | | | [facility], [address] | | | | | | [place], [place] | | | | | | [address] | | | | | | [phone] | | | +--------+ + + + [...] as of this encounter Progress Notes Interface, Security Installer In - 06/03/2006 2:00 AM PDT CLINIC [...] Ms. Evans has not been attending her jain on Sundays but continues to go to local jain meetings. She denies sedation, and nausea and [...] increased social function and participation in her buddhist group. John Mulligan M.D. Secret Service Agent, Anesthesiology Director, Pain Management Services PK:bony cc: CAROLINE YOON MD MULTIFOCAL BUTTON INSPECTOR [facility] documented in this encounter Plan of Treatment Not on filedocumented as of this encounter Visit Diagnoses Not on filedocumented in this encounter
--- OUTSIDE RECORDS SUMMARY | ~2019-03-05 | XMS | Encounter Summary ---
Demographics + + + | Address | [address] | | | [place] [address] | + + + | Home Phone [...] + | Author | [facility] | | | and [place] | + + + | Organization | [facility] | [...] Team Providers + +------+ + | Care Fiscal Clerk Name | Role | Phone | [...] + + | 11/10/ | Clinical | [facility] | | Disorder of bone and | | 2014 | Support | Group [address] | | cartilage, | | | | [address] | | unspecified | | | | [address] | | | | | | [address] | | | | | | [phone] | | | +--------+ + + + [...] as of this encounter Progress Eunice Shaw, Tire Builder - 11/10/2014 3:21 PM PDTA/P Spine and [...]
--- OUTSIDE RECORDS SUMMARY | ~2019-03-05 | XMS | Encounter Summary ---
Demographics + + + | Address | [address] | | | [place] [address] | + + + | Home Phone [...] [place], | | | | | [place] [address] | | + + + + + Care Team Providers + +------+ + | Care Sod Farmer Name | Role | Phone | + [...] as of this encounter Progress Notes Interface, Gas Flow Regulator In - 02/14/2006 5:12 AM PSTINIC DATE: 03/21/1998 INTERNAL MEDICINE CLINIC SUBJECTIVE: Ms. Evans comes in today for follow up of her chronic pain. She has been in a flare for the last two weeks, since her mother became ill after having a fall precipitating a fractured humerus. 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 Wallace Szymanski. Hui Milton M.D. [facility] Wallace Szymanski M.D. [facility] MS/hhk d ocumented in this encounter Plan of Treatment Not on filedocumented as of this encounter Visit Diagnoses Not on filedocumented in this encounter"
--- OUTSIDE RECORDS SUMMARY | ~2019-03-05 | XMS | Encounter Summary ---
Demographics + + + | Address | [address] | | | [place] [address] | + + + | Home Phone [...] + + + | Author | [facility] | | | and [place] | + + + | Organization | [facility] [...] Team Providers + +------+ + | Care Solar Project Manager Name | Role | Phone | [...] | [address] | [address] | pulmonary disease, | | | | [address] | [place] | unspecified COPD | | | | [address] | [address] | type (HCC) (Primary | | | | [phone] | [phone] | Dx) | +--------+ + + + [...]
--- OUTSIDE RECORDS SUMMARY | ~2019-03-05 | XMS | Encounter Summary ---
Demographics + + + | Address | [address] | | | [place] [address] | + + + | Home Phone [...] [place], | | | | | [place] [address] | | + + + + + Care Team Providers + +------+ + | Care Copy Editor Name | Role | Phone | [...] as of this encounter Progress Notes Interface, Printer Assistant In - 02/23/2006 5:02 AM PSTCLINIC DATE: [...] M.D. Resident, Internal Medicine Wallace Szymanski M.D. Human Resources Representative, Internal Medicine TORI/JENAE/estrellita d ocumented in this encounter Plan of Treatment Not on filedocumented as of this encounter Visit Diagnoses Not on filedocumented in this encounter"
--- OUTSIDE RECORDS SUMMARY | ~2019-03-05 | XMS | Encounter Summary ---
Demographics + + + | Address | [address] | | | [place] [address] | + + + | Home Phone [...] [place], | | | | | [place] [address] | | + + + + + Care Team Providers + +------+ + | Care Mental Health Nurse Name | Role | Phone | [...] of this encounter Progress Notes Interface, Project Inspector In - 02/09/2006 5:05 AM PSTCLINIC DATE: [...]
--- OUTSIDE RECORDS SUMMARY | ~2019-03-05 | XMS | Encounter Summary ---
Demographics + + + | Address | [address] | | | [place] [address] | + + + | Home Phone [...] [place], | | | | | [place] [address] | | + + + + + Care Team Providers + +------+ + | Care Tea Plantation Worker Name | Role | Phone | [...] as of this encounter Progress Notes Interface, Butt Sawyer In - 02/09/2006 5:05 AM PSTCLINIC DATE: [...] seeking drugs at numerous medical centers throughout [facility]. 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 Moreover, I am concerned because she has a prescription for MS Contin in hand which she is supposed to fill for June and I wanted to make sure they knew to confiscate that prescription and not have it filled. Lastly, I have spoken with Nelly Hamilton, our clinical social media job titles, who has taken the task in hand [...]
--- OUTSIDE RECORDS SUMMARY | ~2019-03-05 | XMS | Encounter Summary ---
Demographics + + + | Address | [address] | | | [place] [address] | + + + | Home Phone [...] | [facility] | | | and [place] | + + + | Organization | [facility] | | | and [place] | [...] + +------+ + | Care Special Education Associate Name | Role | Phone | + [...] | | | | oral mucosa | [address] | [address] | | | | | | [place], [place] | [place] [address] | | | | | | [address] | [place], [place] | | | | | | Phone: | [phone] Phone: | | | | | | [phone] | [phone] | | | | | | Fax: | Fax: | | | | | | [phone] | [phone] | +--------+--------+ + + + + Encounter Details +--------+---------+ + + + | Date | Type | Department | Care Team | Description | +--------+---------+ + + + | 12/07/ | Office | [facility]ALO REEDER N | Jaimr Griffith, | Oral lesion (Primary | | 2016 | Visit | [facility]30 | MD 1330 | Dx); Tinnitus, | | | | [place] [address] [address] | [address] | bilateral; | | | | [address] | [address] | Hoarseness; ETD | | | | [phone] | [phone] | (eustachian tube | | | | [...] that [facility] tom related to use of prolonged [...] regarding hearing loss. I spent 50 minutes [id number] with Litzy [place] today; greater than 50% [...]
--- OUTSIDE RECORDS SUMMARY | ~2019-03-05 | XMS | Encounter Summary ---
Demographics + + + | Address | [address] | | | [place] [address] | + + + | Home Phone [...] [place], | | | | | [place] [address] | | + + + + + Care Team Providers + +------+ + | Care Seismograph Operator Helper Name | Role | Phone [...] [id number] | | | | | | [place], [place] | | | | | | [address] | | | | | | [phone] | | | +--------+ + + + [...] + + + + | [facility] | [address] | [place] [address] | | | PATHOLOGY | [address] [...] + + + + | [facility] | [address] | [place] [address] | | | PATHOLOGY | [address] [...] + + + + | [facility] | [address] | [place] [address] | | | PATHOLOGY | [address] [...] + + + + | [facility] | [address] | [place] [address] | | | PATHOLOGY | [address] [...] + + + + | [facility] | [address] | [place] [address] | | | PATHOLOGY | [address] [...] + + + + | [facility] | [address] | [place] [address] | | | PATHOLOGY | [address] | | | + + + + + documented in this encounter Visit Diagnoses Not on filedocumented in this encounter"
--- OUTSIDE RECORDS SUMMARY | ~2019-03-05 | XMS | Encounter Summary ---
Demographics + + + | Address | [address] | | | [place] [address] | + + + | Home Phone [...] + + + | Author | [facility] | | | and [place] | + + + | Organization | [facility] | | | and [place] [...] Team Providers + +------+ + | Care Interior Design Director Name | Role | Phone | + +------+ + | Timothy Elmore | PCP | | + +------+ + Reason for Visit + + + | Reason | Comments | + + + | Establish Care | DIRECTOR LIFE SCIENCES : Lumbar Spine : Referred by PCP [...] | | and other | [place] | [address] | | | | | examinations | [address] | Phone: | | | | | of body | Phone: | [phone] | | | | | structure | [phone] | Fax: | | | | | Procedures | | [phone] | | | | | CSJ-06/29 | | | +--------+--------+ + + + + Encounter Details +--------+---------+ + + + | Date | Type | Department | Care Team | Description | +--------+---------+ + + + | 08/09/ | Office | [facility] | Tapan Bragg | Left foot drop | | 2015 | Visit | [facility] | MD [address] | (Primary Dx) | | | | [address] [facility] | [address], | | | | | [address] [place] | [place] | | | | | [address] | [phone] | | | | | [phone] | | | +--------+---------+ + + + [...]
--- OUTSIDE RECORDS SUMMARY | ~2019-03-05 | XMS | Encounter Summary ---
Demographics + + + | Address | [address] | | | [place] [address] | + + + | Home Phone | | + + + | Preferred Language | Unknown | + + + | Marital Status | Single | + + + | Yazdanism Affiliation | Unknown | + + + | Race | Unknown | + + + | Ethnic Group | Unknown | + + + Author + + + | Author | [facility] | | | and [place] | + + + | Organization | [facility] | | [...] Team Providers + +------+ + | Care Museum Assistant Name | Role | Phone | + +------+ + | Timothy Elmore | PCP | | + +------+ + Encounter Details +--------+ + + + + | Date | Type | Department | Care Team | Description | +--------+ + + + + | 08/04/ | [facility] | [facility] | Neo Pichardo MD | Hypertensive | | 2017 - | Encounter | MED CTR MED[facility] | [address] | emergency; Essential | | | | [address] | [place] | hypertension | | 08/07/ | | [place] [address] | [address] | | | 2016 | | [phone] | | | +--------+ + + + [...] were performed which did not suggest ac [place] coronary syndrome. Echocardiogram was performed which showed [...] Specialty: Family Medicine Contact information: [address] [place] [id number] Discharge Medications New Medications Details acetaminophen 325 [...] signed by: Neo Pichardo MD, 08/07/2016 12:33 [facility] documented in this enc ounter Discharge [...] Mendoza MD - 08/06/2016 8:35 AM PDT [facility] HOSPITALIST PROGRESS NOTE Patient: Oneal Evans : 1955: Age: 60 y.o. MedRec: [id number] PCP: ASHANTI Esteves Admission date: 08/04/2016 Hospital [...] as outlined above. 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 MedRec: [id number] PCP: ASHANTI Esteves Admission date: 08/04/2016 Hospital [...] This is a preliminary report provided by [employer], CARLIE. A kevin brown report is available at [facility]. CT ABDOMEN AND PELVIS WITH CO [...] 650 mg 650 mg Oral Q6H PRN eNo Pichardo MD 650 mg a t 08/05/16 [...] as outlined above. Neo Pichardo 08/05/2016 9:29 [facility] documented in this enc ounter Plan [...] + | [facility] | [address] | [place] | [phone] | | [facility] | | [address] | | | - LABORATORY | | [...] | mL/min/1.73m2 | [facility] | | | [place] | RATE,ESTIMATED | | MEDICAL | | | | mL/min/1.70s0Pnlh than | | CENTER - | | [...] [address] | [place] | [phone] | | [facility] | | [address] | | | - LABORATORY | | [...] [address] | [place] | [phone] | | [facility] | | [address] | | | - LABORATORY | | [...] | [facility] | [address] | [place] | [phone] | | [facility] | | [address] | | | - LABORATORY | | [...] [address] | [place] | [phone] | | [facility] | | [address] | | | - LABORATORY | | [...] 0.46 (L) | 0.60 - 1.30 | [facility] | | | | | mg/dL | [facility] | | | | | | MEDICAL | | | | | | CENTER - | | | | | | LABORATORY | | + + + + + + | eGFR if not | >60Comment: GLOMERULAR | >=60 | [facility] | | | | FILTRATION | mL/min/1.73m2 | [facility] | | | [place] | RATE,ESTIMATED | | MEDICAL | | | | mL/min/1.61f7Oxcg than | | CENTER - | | [...] + | [facility] | [address] | [place] | [phone] | | [facility] | | [address] | | | - LABORATORY | | [...] [address] | [place] | [phone] | | [facility] | | [address] | | | - LABORATORY | | [...] | | | FILTRATION | mL/min/1.73m2 | [facility] | | | [place] | RATE,ESTIMATED | | MEDICAL | | | | mL/min/1.10p6Xdfc than | | CENTER - | | [...] | | | | | mg/dL | [facility] | | | | | | MEDICAL [...] [address] | [place] | [phone] | | [facility] | | [address] | | | - LABORATORY | | [...] [address] | [place] | [phone] | | [facility] | | [address] | | | - LABORATORY | | [...] 458 | | | [place] Patient Number [id number] Date of Study | | | 08/05/2016 Visit Number [id number] Accession | | | [id number] Referring Physician JAZLYN MORILLO Number | | | Date of 1955 Protohistorian | | | GAVIN JENNINGS [facility] Age 60 year(s) | | | Interpreting ERICK DUKE | | | Line Service Supervisor [place]ANI | | | MD ERICK Gender Female Nurse | | | Stress Palliative Care Specialist Procedure Type | | | of Study [...] Volume: 55.37 ml | | | EF Ptnqvukbg51% Left | | | Ventricle Diastolic Dimension: [...] Volume: 55.37 ml | | | EF Ztpyxbbqi36% | | | | | | Left [...] Report | | (TTE) Demographics Patient Name MRUIEL ONEAL Room Number 458 | | [place] Patient Number [id number] Date of Study 08/05/2016 Visit Number | | [id number] Referring Physician JAZLYN MORILLO Number | | Date of 1955 Protohistorian GAVIN JENNINGS [facility] Age | | 60 year(s) Interpreting ERICK DUKE | | Line Service Supervisor LEILANI SUAREZ MD Gender Female Nurse | [...] LA Volume: 55.37 ml EF | | Rbcmfaiyv30% Left Ventricle Diastolic Dimension: 5.52 cm Systolic [...] LA Volume: 55.37 ml | | EF Uwixlpknz64% | | | | Left Ventricle | [...] [address] | [place] | [phone] | | [facility] | | [address] | | | - LABORATORY | | [...] [address] | [place] | [phone] | | [facility] | | [address] | | | - LABORATORY | | [...] [address] | [place] | [phone] | | [facility] | | [address] | | | - LABORATORY | | [...] + | [facility] | [address] | [place] | [phone] | | [facility] | | [address] | | | - LABORATORY | | [...] | | | | | | [employer] | | | | | [...] + + | Performing | Address | City/State[facility] | Phone Number | | Organization | | | | + + + + + | [facility] | [address] | [place] | [phone] | | [facility] | | [address] | | | - LABORATORY | | [...] mL/min/1.73m2 | [address] | | | [place] | RATE,ESTIMATED | | MEDICAL | | | | mL/min/1.39y2Pbpz than | | CENTER - | | [...] [address] | [place] | [phone] | | [facility] | | [address] | | | - LABORATORY | | [...] [address] | [place] | [phone] | | [facility] | | [address] | | | - LABORATORY | | [...] | | | | | | [employer] | | | | | [...] + | [facility] | [address] | [place] | [phone] | | [facility] | | [address] | | | - LABORATORY | | [...] | | | | JAMMIE ALONSO MD ([id number]) | | | | | | on [...] + | [facility] | [address] | [place] | [phone] | | [facility] | | [address] | | | - LABORATORY | | [...] | | | | JAMMIE ALONSO MD ([id number]) | | | | | | on [...] [address] | [place] | [phone] | | [facility] | | [address] | | | - LABORATORY | | [...] [address] | [place] | [phone] | | [facility] | | [address] | | | - LABORATORY | | [...] | | | | | | [employer] | | | | | [...] + | [facility] | [address] | [place] | [phone] | | [facility] | | [address] | | | - LABORATORY | | [...] [address] | [place] | [phone] | | [facility] | | [address] | | | - LABORATORY | | [...] + | [facility] | [address] | [place] | [phone] | | [facility] | | [address] | | | - LABORATORY | | [...] + | [facility] | [address] | [place] | [phone] | | [facility] | | [address] | | | - LABORATORY | | [...] | mL/min/1.73m2 | [facility] | | | [place] | RATE,ESTIMATED | | MEDICAL | | | | mL/min/1.60o8Wetg than | | CENTER - | | [...] [address] | [place] | [phone] | | [facility] | | [address] | | | - LABORATORY | | [...] [address] | [place] | [phone] | | [facility] | | [address] | | | - LABORATORY | | [...] | | | | | | | Zoe 08/05/16 at 1130, Initial | | | [...] | | | over 4 Hours, ONCE, Zoe 08/05/16 | | | | | | [...]
--- OUTSIDE RECORDS SUMMARY | ~2019-03-05 | XMS | Encounter Summary ---
Demographics + + + | Address | [address] | | | [place] [address] | + + + | Home Phone [...] + + + | Author | [facility] | | | and [place] | + + + | Organization | [facility] | | [...] Team Providers + +------+ + | Care Hemstitcher Name | Role | Phone | + [...] + | 06/15/ | Telephone | [facility] | Jacklyn, | Appointment (Pain in | | 2016 | | [facility] | MD Jose [address] | Left leg -- See | | | | [address] | comment) | | | | [address] [place] | [place] | | | | | [address] | [phone] | | | | | [phone] | | | +--------+ + + + [...]
--- OUTSIDE RECORDS SUMMARY | ~2019-03-05 | XMS | Encounter Summary ---
Demographics + + + | Address | [address] | | | [place] [address] | + + + | Home Phone [...] [place], | | | | | [place] [address] | | + + + + + Care Team Providers + +------+ + | Care Cupola Patcher Name | Role | Phone | + [...] as of this encounter Progress Notes Interface, Design Studio Consultant In - 02/28/2006 3:08 AM PST [facility] Account No. PROGRESS RECORD Name Litzy Evans Birthdate 1955 Date Probl Time em FORMAT: PROBLEM NUMBER and TITLE: S=Subjective Number O=Objective A=Analysis P=Plans CLINIC DATE: 11/05/1997 November 05, 1997 OLEG PUGH MD [address] [facility] [address] RE: Litzy EVANS. MR#: [id number] : [address] Pugh: I had the pleasure of seeing your patient, Ms. Litzy Evans, [facility] today for evaluation of her chronic pain problem. Ms. Eavns tells me that she has moved to [place] within the last week and plans to establish care in the month of November with Dr. Kaleb Velásquez here at [facility]. Therefore, I will send you a copy of this letter, as well as Dr. Velásquez. Please allow me to briefly review Ms. Evans' history, as well as my evaluations, findings, and suggestions. Ms. Evans is a 42-year-old woman with a longstanding history of low back pain who had been previously treated at the [facility] prior to my arrival at [facility]. She states that she has had [...] tried a variety of medications including Tegretol, Dunellen, Amitriptyline, and other antidepressants. CURRENT MEDICATIONS: 1. [...] has recently ended. She has moved to [place] and is now living with an ex-'s mother. 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 She smokes one pack of cigarettes [...] also with some difficulty. Romberg is negative. Uywzmc-bimg-fhlpvr is normal. On examination of her chest [...] normal limits." IMPRESSION: 1. Fibromyalgia by 1990 [place] [employer] criteria. 2. Significant psychiatric [...] her care from Internal Medicine here at [facility], would be for her to see [...] the 1995 intractable pain act here in [place]. I agreed with Ms. Evans that should she establish care with Dr. Velásquez here at [facility], I would be happy to discuss her care with him at that point. In the meantime, I have nothing additional or specific to offer for Ms. Evans' care. Thank you very much for your referral of Ms. Evans to the [facility] here at [facility]. If you have any questions or concerns, please do not hesitate to give me a call at [phone]. Monroe Pruitt M.D. Drafter (Cad) Electrical, Anesthesiology Director of [facility] BRS:mau cc: Kaleb Velásquez M.D. Drafter (Cad) Electrical, Medicine Richie Her M.D. Drafter (Cad) Electrical, Department of Orthopedics and Rehabilitation nterface, Design Studio Consultant In - 02/28/2006 3:08 AM PSTCLINIC DATE: 11/05/97 PHONE CALL: Litzy called today requesting more Vicodin. She wanted it called to [facility]. I spoke with Dr. Her in regard to this and he declined the request. I called the patient at 16:15 and left a message to that effect. The phone number is [phone]. Lindsay Romeo R.N. Orthopedics HALLIE/emily P cc: documente d in this encounter Plan of Treatment Not on filedocumented as of this encounter Visit Diagnoses Not on filedocumented in this encounter
--- OUTSIDE RECORDS SUMMARY | ~2019-03-05 | XMS | Encounter Summary ---
Demographics + + + | Address | [address] | | | [place] [address] | + + + | Home Phone [...] [place], | | | | | [place] [address] | | + + + + + Care Team Providers + +------+ + | Care Stone Setter Metal Optical Frames Name | Role | Phone | + +------+ + PCP | Unavailable | + +------+ + Encounter Details +--------+ + + + + | Date | Type | Department | Care Team | Description | +--------+ + + + + | 09/26/ | Results | | Other, Faculty | | | 1993 | Only | | [phone] | | +--------+ + + + + [...]
--- OUTSIDE RECORDS SUMMARY | ~2019-03-05 | XMS | Encounter Summary ---
Demographics + + + | Address | [address] | | | [place] [address] | + + + | Home Phone [...] [place], | | | | | [place] [address] | | + + + + + Care Team Providers + +------+ + | Care In Flight Technician Name | Role | Phone | [...] Rd | | | | | | [place] | | | | | | [address] | | | +--------+ + + + [...] as of this encounter Progress Notes Interface, Preparation Operator In - 06/14/2006 5:08 AM PDT [address] [address] [facility] January 08, 1994 DARYL ELLIS PH D [facility] [address] [address] RE:Litzy Evans MR:[id number] Ellis: Thank [...] any further information. Sincerely, Faisal Grijalva M.D. Medical Lab Tech Instructor, Neurology PIYUSH:sailaja January 09, 1994 documented in this encounter Plan of Treatment Not on filedocumented as of this encounter Visit Diagnoses Not on filedocumented in this encounter"
--- OUTSIDE RECORDS SUMMARY | ~2019-03-05 | XMS | Encounter Summary ---
Demographics + + + | Address | [address] | | | [place] [address] | + + + | Home Phone [...] [place], | | | | | [place] [address] | | + + + + + Care Team Providers + +------+ + | Care Brigadier Name | Role | Phone | + [...] Vazquez Valdez | | | | | [address] | [facility] [place] | | | | | Loop Mailcode: | [address] | | | | | [address] Outpatient | [phone] | | | | | Clinic Building | | | | | | [place], [place] | | | | | | [address] | | | | | | [phone] | | | +--------+ + + + [...] | | + +---------+ + + | [facility] DEPARTMENT | | | | | RADIOLOGY | | | | + +---------+ + + documented in this encounter Visit Diagnoses Not on filedocumented in this encounter"
--- OUTSIDE RECORDS SUMMARY | ~2019-03-05 | XMS | Encounter Summary ---
Demographics + + + | Address | [address] | | | [place] [address] | + + + | Home Phone [...] + + + | Author | [facility] | | | and [place] | + + + | Organization | [facility] | | | and [...] Providers + +------+ + | Care Senior Water/Wastewater Engineer Name | Role | Phone | [...] | | | | | y | [address] | | | | | | Procedures | Phone: | | | | | | evaluate and | [phone] | | | | | | treat | | | +--------+--------+ + + + + Encounter Details +--------+---------+ + + + | Date | Type | Department | Care Team | Description | +--------+---------+ + + + | 12/14/ | Office | [facility] [place] [facility] | Joe Flores, | Pancreatic | | 2015 | Visit | [place] | [address] | insufficiency | | | | ENDOCRINOLOGY [address] | [address] | (Primary Dx); | | | | [address] | [place] [address] | Diarrhea; Loss of | | | | [address] [place], [place] | [phone] | appetite; Weight | | | | [address] | | loss | | | | [phone] | | | +--------+---------+ + + + [...] some workup that has been done at [facility]. I received a note from a surgical evaluat ion she had at [facility]. She has also had gastroenterology evaluation at [facility] as well, I do not [...] syndrome. Furthermore, I would suggest to her [facility] provider that he screen and evaluate [...] | | CORE | | | | [place] [address] | | LABORATORY | | | | [...] [place] | [address] | [place] [address] | [phone] | | CORE LABORATORY (I) | | [...] | | | | | [place] | | | | | | | [...] | [address] | [place] [address] | [phone] | | CORE LABORATORY (I) | | [...] | | CORE | | | | [address] | | LABORATORY | | | | [...] [place] | [address] | [place] [address] | [phone] | | CORE LABORATORY (I) | | [...] | | (I) | | | | [facility].Performed by | | | | | [...] | [address] | [place] [address] | [phone] | | CORE LABORATORY (I) | | [...] | CORE | | | | [place] [address] | | LABORATORY | | | | [...] [place] | [address] | [place] [address] | [phone] | | CORE LABORATORY (I) | | [...] | | CORE | | | | [address] | | LABORATORY | | | | [...] [place] | [address] | [place] [address] | [phone] | | CORE LABORATORY (I) | | [...]
--- OUTSIDE RECORDS SUMMARY | ~2019-03-05 | XMS | Encounter Summary ---
Demographics + + + | Address | [address] | | | [place] [address] | + + + | Home Phone [...] [place], | | | | | [place] [address] | | + + + + + Care Team Providers + +------+ + | Care Sound Mixer Name | Role | Phone | + +------+ + PCP | Unavailable | + +------+ + Encounter Details +--------+ + + + + | Date | Type | Department | Care Team | Description | +--------+ + + + + | 04/11/ | Office | UNKNOWN DEPARTMENT | Note, Outpatient | Progress Note | | 1994 | Visit-Trans | [address] [facility] | Clinic | | | | [place] | [address] | | | | | | [place], [place] | | | | | | [address] | | | +--------+ + + + [...] of this encounter Progress Notes Interface, Financial Aid Officer In - 06/11/2006 5:10 AM PDT CLINIC DATE: 04/11/94 NEUROLOGY CLINIC: Litzy returns for follow-up of her chronic pain syndrome. Since our last visit, I have had the opportunity to review an lumbosacral (LS) spine magnetic resonance imaging (MRI) performed at an outside hospital and dated 05/06/93. This was performed at [facility]. It was a good quality study [...] Follow-up in Pain Clinic. Faisal Grijalva M.D. High School Teacher, Neurology FELIZ:manuel documented in this encounter Plan of Treatment Not on filedocumented as of this encounter Visit Diagnoses Not on filedocumented in this encounter
--- OUTSIDE RECORDS SUMMARY | ~2019-03-05 | XMS | Encounter Summary ---
Demographics + + + | Address | [address] | | | [place] [address] | + + + | Home Phone [...] + + + | Author | [facility] | | | and [place] | + + + | Organization | [facility] [...] Team Providers + +------+ + | Care Pan Devulcanizer Helper Name | Role | Phone | [...] | | 2014 | | [place] | [address] | Weight loss; | | | | ENDOCRINOLOGY [address] | [address] | Pancreatic | | | | [address] | [place] [address] | insufficiency; | | | | [address] [place] | [phone] | Diarrhea | | | | [address] | | | | | | [phone] | | | +--------+ + + + [...] | CORE | | | | [place] [address] | | LABORATORY | | | | [...] + + | [place] | [address] | [place] [address] | [phone] | | CORE LABORATORY (I) | | [...] [place] | | | | | | [address] | | | | + + + + + + + + | Specimen | + + | Blood specimen | | (specimen) | + + + + + + + | Performing | Address | City/State/Zipcode | Phone Number | | Organization | | | | + + + + + | [place] | [address] | [place] [address] | [phone] | | CORE LABORATORY (I) | | [...] CARIE | | | Fasting | [facility] [place] [address] | | [place] | | | [...] | [address] | [place] [address] | [phone] | | [facility] (I) | | [...] [place] | | | | | | [address] | | | | + + + + + + + + | Specimen | + + | Blood specimen | | (specimen) | + + + + + + + | Performing | Address | City/State/Zipcode | Phone Number | | Organization | | | | + + + + + | [place] | [address] | [place] [address] | [phone] | | CORE LABORATORY (I) | | [...]
--- OUTSIDE RECORDS SUMMARY | ~2019-03-05 | XMS | Encounter Summary ---
Demographics + + + | Address | [address] | | | [place] [address] | + + + | Home Phone [...] Author | [facility] | | | and [place] | + + + | Organization | [facility] | | | and [...] Providers + +------+ + | Care Wax Molder Name | Role | Phone | + [...] | | | | | Phone: | [phone] | | | | | | [phone] | Fax: | | | | | | Fax: | [phone] | | | | | | [phone] | | +--------+ + + + + [...] | | and other | [place] | [address] | | | | | examinations | [address] | Phone: | | | | | of body | Phone: | [phone] | | | | | structure | [phone] | Fax: | | | | | Procedures | | [phone] | | | | | CSJ-06/29 | | | +--------+--------+ + + + + Encounter Details +--------+---------+ + + + | Date | Type | Department | Care Team | Description | +--------+---------+ + + + | 05/08/ | Office | [facility] [place] [facility] | Tapan Bragg | Lumbar stenosis | | 2016 | Visit | [facility] | MD [address] | (Primary Dx) | | | | [address] | [facility] [address], | | | | | [address] [place] [address] | [place] [address] | | | | | [address] | [phone] | | | | | [phone] | | | +--------+---------+ + + + [...] 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 Just ask the staff there to help [...]
--- OUTSIDE RECORDS SUMMARY | ~2019-03-05 | XMS | Encounter Summary ---
Demographics + + + | Address | [address] | | | [place] [address] | + + + | Home Phone [...] [place], | | | | | [place] [address] | | + + + + + Care Team Providers + +------+ + | Care Flight Test Shop Mechanic Name | Role | Phone | + +------+ + PCP | Unavailable | + +------+ + Encounter Details +--------+ + + + + | Date | Type | Department | Care Team | Description | +--------+ + + + + | 04/11/ | Office | UNKNOWN DEPARTMENT | Note, Outpatient | Progress Note | | 1994 | Visit-Trans | [address] [facility] | Clinic | | | | merritt | [address] | | | | | | [place], [place] | | | | | | [address] | | | +--------+ + + + [...] as of this encounter Progress Notes Interface, Wellness Program Manager In - 06/11/2006 5:10 AM PDT CLINIC DATE: 04/11/94 NEUROLOGY CLINIC: Litzy returns for follow-up of her chronic pain syndrome. Since our last visit, I have had the opportunity to review an lumbosacral (LS) spine magnetic resonance imaging (MRI) performed at an outside hospital and dated 05/06/93. This was performed at [facility]. It was a good quality [...] Follow-up in Pain Clinic. Faisal Grijalva M.D. Hot Saw Operator, Neurology FELIZ:manuel documented in this encounter Plan of Treatment Not on filedocumented as of this encounter Visit Diagnoses Not on filedocumented in this encounter
--- OUTSIDE RECORDS SUMMARY | ~2019-03-05 | XMS | Encounter Summary ---
Demographics + + + | Address | [address] | | | [place] [address] | + + + | Home Phone | | + + + | Preferred Language | Unknown | + + + | Marital Status | Single | + + + | Lutheran Affiliation | Unknown | + + + | Race | Unknown | + + + | Ethnic Group | Unknown | + + + Author + + + | Author | [facility] | | | and [place] | + + + | Organization | [facility] | | | and [...] Team Providers + +------+ + | Care Mining Teacher Name | Role | Phone | + +------+ + | Timothy Elmore | PCP | | + +------+ + Encounter Details +--------+ + + + + | Date | Type | Department | Care Team | Description | +--------+ + + + + | 08/18/ | Abstract | [facility] [place] [facility] | [place]lee, | Dental caries | | 2015 | | PHYSIATRY [address] | Yfn Sabillon CMA | (Primary Dx); | | | | [address] | | Depression; | | | | [place] | | Essential | | | | [address] | | hypertension | | | | [phone] | | | +--------+ + + + [...]
--- OUTSIDE RECORDS SUMMARY | ~2019-03-05 | XMS | Encounter Summary ---
Demographics + + + | Address | [address] | | | [place] [address] | + + + | Home Phone [...] Author | [facility] | | | and [place] | + + + | Organization | [facility] [...] Team Providers + +------+ + | Care Biotechnologist Name | Role | Phone | + [...] | [address] | [address] | pulmonary disease, | | | | [place] | [place] | unspecified COPD | | | | [address] | [address] | type (HCC) (Primary | | | | [phone] | [phone] | Dx) | +--------+ + + + [...]
--- OUTSIDE RECORDS SUMMARY | ~2019-03-05 | XMS | Encounter Summary ---
Demographics + + + | Address | [address] | | | [place] [address] | + + + | Home Phone [...] [place], | | | | | [place] [address] | | + + + + + Care Team Providers + +------+ + | Care Wire Machine Operator Name | Role | Phone [...] as of this encounter Progress Notes Interface, Inserting Machine Operator In - 02/23/2006 5:02 AM [...] M.D. Resident, Internal Medicine Wallace Szymanski M.D. People Manager, Internal Medicine TORI:mau d ocumented in this encounter Plan of Treatment Not on filedocumented as of this encounter Visit Diagnoses Not on filedocumented in this encounter
--- OUTSIDE RECORDS SUMMARY | ~2019-03-05 | XMS | Encounter Summary ---
Demographics + + + | Address | [address] | | | [place] [address] | + + + | Home Phone [...] [place], | | | | | [place] [address] | | + + + + + Care Team Providers + +------+ + | Care Computer Repair Engineer Name | Role | Phone | [...] [id number] | | | | | | [place], [place] | | | | | | [address] | | | | | | [phone] | | | +--------+ + + + [...] + + + + | [facility] | [address] | [place] [address] | | | PATHOLOGY | [address] | | | + + + + + documented in this encounter Visit Diagnoses Not on filedocumented in this encounter"
--- OUTSIDE RECORDS SUMMARY | ~2019-03-05 | XMS | Encounter Summary ---
Demographics + + + | Address | [address] | | | [place] [address] | + + + | Home Phone [...] | Author | [facility] | | | and [place] | + + + | Organization | [facility] | | | and [...] Team Providers + +------+ + | Care Dental Ceramist Name | Role | Phone | + [...] | | 2015 | | [place] | [address] | level (HCC) | | | | ENDOCRINOLOGY [address] | [address] | | | | | [address] | [place] [address] | | | | | [address] [place] | [phone] | | | | | [address] | | | | | | [phone] | | | +--------+ + + + [...] | CORE | | | | [place] [address] | | LABORATORY | | | | [...] | [address] | [place] [address] | [phone] | | [facility] (I) | | [...] (I) | | | | [place] [address] | | | | + + + + + + + + | Specimen | + + | Blood specimen | | (specimen) | + + + + + + + | Performing | Address | City/State/Zipcode | Phone Number | | Organization | | | | + + + + + | [facility] | [address] | [place] [address] | [phone] | | CORE LABORATORY (I) | | [...] | | (I) | | | | [facility].Performed by | | | | | | [facility] [address] | | | | | | [place] | | | | | | | [...] | [address] | [place] [address] | [phone] | | CORE LAB[facility]ATORY (I) | | | | + + + + + documented in this encounter Visit Diagnoses + + | Diagnosis | + + | Low serum cortisol level (HCC) Glucocorticoid deficiency | + + documented in this encounter"
--- OUTSIDE RECORDS SUMMARY | ~2019-03-05 | XMS | Encounter Summary ---
Demographics + + + | Address | [address] | | | [place] [address] | + + + | Home Phone [...] [place], | | | | | [place] [address] | | + + + + + Care Team Providers + +------+ + | Care Warehouse Team Member Name | Role | Phone | [...] as of this encounter Progress Notes Interface, Underwriting Consultant In - 02/21/2006 3:06 AM PSTCLINIC DATE: [...] M.D. Resident, Internal Medicine Wallace Szymanski M.D. Venue Manager, Internal Medicine TORI/joshua d ocumented in this encounter Plan of Treatment Not on filedocumented as of this encounter Visit Diagnoses Not on filedocumented in this encounter"
--- OUTSIDE RECORDS SUMMARY | ~2019-03-05 | XMS | Encounter Summary ---
Demographics + + + | Address | [address] | | | [place] [address] | + + + | Home Phone | | + + + | Preferred Language | Unknown | + + + | Marital Status | Single | + + + | Hoahaoism Affiliation | Unknown | + + + | Race | Unknown | + + + | Ethnic Group | Unknown | + + + Author + + + | Author | [facility] | | | and [place] | + + + | Organization | [facility] | | | [...] Providers + +------+ + | Care Director Property Name | Role | Phone | + [...] | 12/23/ | Clinical | [facility] [place] [address] | | Elevated cortisol | | 2015 | Support | [place] | | level (HCC) (Primary | | | | ENDOCRINOLOGY 13[address] | | Dx); Decreased | | | | [address] | | cortisol level ([facility]) | | | | [address] [place] | | | | | | [address] | | | | | | [phone] | | | +--------+ + + + [...] | | Right | | Intramuscular, ONCE, [facility] 12/23/14 | | AM PST | | [...]
--- OUTSIDE RECORDS SUMMARY | ~2019-03-05 | XMS | Encounter Summary ---
Demographics + + + | Address | [address] | | | [place] [address] | + + + | Home Phone | | + + + | Preferred Language | Unknown | + + + | Marital Status | Single | + + + | Scientology Affiliation | Unknown | + + + | Race | Unknown | + + + | Ethnic Group | Unknown | + + + Author + + + | Author | [facility] | | | and [place] | + + + | Organization | [facility] | [...] Team Providers + +------+ + | Care Desktop Administrator Name | Role | Phone | + +------+ + | Timothy Elmore | PCP | | + +------+ + Encounter Details +--------+ + + + + | Date | Type | Department | Care Team | Description | +--------+ + + + + | 08/18/ | Abstract | [facility] [place] [facility] | [place], | Dental caries | | 2015 | | PHYSIATRY [address] | Yfn Sabillon CMA | (Primary Dx); | | | | [address] | | Depression; | | | | [place] | | Essential | | | | [address] | | hypertension | | | | [phone] | | | +--------+ + + + [...]
--- OUTSIDE RECORDS SUMMARY | ~2019-03-05 | XMS | Encounter Summary ---
Demographics + + + | Address | [address] | | | [place] [address] | + + + | Home Phone [...] [place], | | | | | [place] [address] | | + + + + + Care Team Providers + +------+ + | Care Line Maintenance Technician Name | Role | Phone | [...]
--- OUTSIDE RECORDS SUMMARY | ~2019-03-05 | XMS | Encounter Summary ---
Demographics + + + | Address | [address] | | | [place] [address] | + + + | Home Phone [...] [place], | | | | | [place] [address] | | + + + + + Care Team Providers + +------+ + | Care Cookee Name | Role | Phone | + [...] as of this encounter Progress Notes Interface, Tier Truck Driver In - 02/07/2006 1:09 AM PSTCLINIC DATE: [...] or throat itching. She has been taking rwkv-hps-pyhrmxl pseudoephedrine, but has not noted much relief. [...] Ms. Evans is planning to move to [place]. We will forward her records as soon [...]
--- OUTSIDE RECORDS SUMMARY | ~2019-03-05 | XMS | Encounter Summary ---
Demographics + + + | Address | [address] | | | [place] [address] | + + + | Home Phone [...] [place], | | | | | [place] [address] | | + + + + + Care Team Providers + +------+ + | Care Java Web Engineer Name | Role | Phone | [...]
--- OUTSIDE RECORDS SUMMARY | ~2019-03-05 | XMS | Encounter Summary ---
Demographics + + + | Address | [address] | | | [place] [address] | + + + | Home Phone [...] Author | [facility] | | | and [place] | + + + | Organization | [facility] | [...] Team Providers + +------+ + | Care Confectionery Maker Name | Role | Phone | [...] | | 2015 | | [place] | [address] | level (HCC) | | | | ENDOCRINOLOGY [address] | [address] | | | | | [address] | [place] [address] | | | | | [address] [place] | [phone] | | | | | [address] | | | | | | [phone] | | | +--------+ + + + [...] | CORE | | | | [place] [address] | | LABORATORY | | | | [...] | [address] | [place] [address] | [phone] | | [facility] (I) | | [...] (I) | | | | [place] [address] | | | | + + + + + + + + | Specimen | + + | Blood specimen | | (specimen) | + + + + + + + | Performing | Address | City/State/Zipcode | Phone Number | | Organization | | | | + + + + + | [facility] [place] | [address] | [place] [address] | [phone] | | [facility] (I) | | [...] | | | | | [place] | | | | | | | [...] | [address] | [place] [address] | [phone] | | [facility] (I) | | | | + + + + + documented in this encounter Visit Diagnoses + + | Diagnosis | + + | Low serum cortisol level (HCC) Glucocorticoid deficiency | + + documented in this encounter"
--- OUTSIDE RECORDS SUMMARY | ~2019-03-05 | XMS | Encounter Summary ---
Demographics + + + | Address | [address] | | | [place] [address] | + + + | Home Phone [...] + + + | Author | [facility] | | | and [place] | + + + | Organization | [facility] | | | and [...] Team Providers + +------+ + | Care Auditor In Charge Name | Role | Phone [...] | 2015 | | [address] [facility] | [address] | prep) | | | | [address] | [address] [place] | | | | | [place] | [address] | | | | | [address] | [phone] | | | | | [phone] | | | +--------+ + + + [...]
--- OUTSIDE RECORDS SUMMARY | ~2019-03-05 | XMS | Encounter Summary ---
Demographics + + + | Address | [address] | | | [place] [address] | + + + | Home Phone [...] [place], | | | | | [place] [address] | | + + + + + Care Team Providers + +------+ + | Care Developer Support Engineer Name | Role | Phone | [...] of this encounter Progress Notes Interface, Solar Photovoltaic Installer In - 02/14/2006 5:12 AM PSTINIC DATE: 03/21/1998 INTERNAL MEDICINE CLINIC SUBJECTIVE: Ms. Evans comes in today for follow up of her chronic pain. She has been in a flare for the last two weeks, since her mother became ill after having a fall precipitating a fractured humerus. 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 Wallace Szymanski. Hui Milton M.D. [facility] Wallace Szymanski M.D. [facility] MS/hhk d ocumented in this encounter Plan of Treatment Not on filedocumented as of this encounter Visit Diagnoses Not on filedocumented in this encounter"
--- OUTSIDE RECORDS SUMMARY | ~2019-03-05 | XMS | Encounter Summary ---
Demographics + + + | Address | [address] | | | [place] [address] | + + + | Home Phone [...] [place], | | | | | [place] [address] | | + + + + + Care Team Providers + +------+ + | Care Tear Down Man Name | Role | Phone | [...] Clinic | | | | | | [facility], [address] | | | | | | [place], [place] | | | | | | [address] | | | | | | [phone] | | | +--------+ + + + [...] as of this encounter Progress Notes Interface, Industrial Controls Technician In - 06/01/2006 3:00 AM PDT CLINIC [...] in the Pain Clinic. Faisal Grijalva M.D. Obstetrical Nurse, Neurology JQ/wtgarfield documented in this encounter Plan of Treatment Not on filedocumented as of this encounter Visit Diagnoses Not on filedocumented in this encounter"
--- OUTSIDE RECORDS SUMMARY | ~2019-03-05 | XMS | Encounter Summary ---
Demographics + + + | Address | [address] | | | [place] [address] | + + + | Home Phone [...] [place], | | | | | [place] [address] | | + + + + + [...] as of this encounter Progress Notes Interface, Ehs Manager In - 02/23/2006 5:02 AM PSTCLINIC [...] years ago when she read about an [facility] clinic, and presented by self-referral to the [...] medication in September when she moved from [place] to [place] and switched providers. Patient states that since [...] Patient was seen by Dr. Browning in [place], [place], at which time she was given [...] Recommended group therapy. Patient is covered through [facility] and she will investigate possible group therapy at the [facility] system. Patient was seen and interviewed with Dr. Anabelle Garcia. Frederic Koch M.D. Resident, Internal Medicine Anabelle Garcia M.D. Veneer Production Machine Operator, Psychiatry ELDA/ruby d ocumented in this encounter Plan of Treatment Not on filedocumented as of this encounter Visit Diagnoses Not on filedocumented in this encounter"
--- OUTSIDE RECORDS SUMMARY | ~2019-03-05 | XMS | Encounter Summary ---
Demographics + + + | Address | [address] | | | [place] [address] | + + + | Home Phone [...] [place], | | | | | [place] [address] | | + + + + + Care Team Providers + +------+ + | Care Ship Propeller Finisher Name | Role | Phone | [...] of this encounter Progress Notes Interface, Manager Mining In - 02/28/2006 3:08 AM [facility] [place] [address] [place] [address] or November 05, 1997 OLEG PUGH MD [address] [facility] [address] RE: LITZY EVANS MR#: [id number] : [address] Pugh: I had the pleasure of seeing your patient, Ms. Lit[place], at the [facility] today for evaluation of her chronic pain problem. Ms. Evans tells me that she has moved to [place] within the last week and plans to [...] tried a variety of medications including Tegretol, [place], Amitriptyline, and other antidepressants. CURRENT MEDICATIONS: 1. [...] recently ended. She has moved to [place] and is now living with an ex-'s mother. 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 She smokes one pack of [...] also with some difficulty. Romberg is negative. Kamgwf-nyap-bxsube is normal. On examination of her chest [...] 1995 intractable pain act here in [place]. I agreed with Ms. Evans that should [...] hesitate to give me a call at [phone]. Monroe Pruitt M.D. Mud Engineer, Anesthesiology Director of [facility] Management Center BRS:mau cc: Kaleb Velásquez M.D. Mud Engineer, Medicine Richie Her, M.D. Mud Engineer, Department of Orthopedics and Rehabilitation Kaleb Velásquez M.D. Mud Engineer, Medicine Richie Her M.D. Mud Engineer, Department of Orthopedics and Rehabilitation documented in this encounter Plan of Treatment Not on filedocumented as of this encounter Visit Diagnoses Not on filedocumented in this encounter
--- OUTSIDE RECORDS SUMMARY | ~2019-03-05 | XMS | Encounter Summary ---
Demographics + + + | Address | [address] | | | [place] [address] | + + + | Home Phone | | + + + | Preferred Language | Unknown | + + + | Marital Status | Single | + + + | Mandaeism Affiliation | Unknown | + + + | Race | Unknown | + + + | Ethnic Group | Unknown | + + + Author + + + | Author | [facility] | | | and [place] | + + + | Organization | [facility] | | | and [place] [...] Team Providers + +------+ + | Care Title I Coordinator Name | Role | Phone | [...] [place] | | | | | [address] | [phone] | | | | | [phone] | | | +--------+ + + + [...]
--- OUTSIDE RECORDS SUMMARY | ~2019-03-05 | XMS | Encounter Summary ---
Demographics + + + | Address | [address] | | | [place] [address] | + + + | Home Phone [...] [place], | | | | | [place] [address] | | + + + + + Care Team Providers + +------+ + | Care Custom Protection Officer Name | Role | Phone | [...] as of this encounter Progress Notes Interface, Extrusion Die Template Maker In - 02/23/2006 5:02 AM PSTCLINIC DATE: [...] M.D. Resident, Internal Medicine Wallace Szymanski M.D. Historical Site Guide, Internal Medicine TORI/JENAE/estrellita d ocumented in this encounter Plan of Treatment Not on filedocumented as of this encounter Visit Diagnoses Not on filedocumented in this encounter"
--- OUTSIDE RECORDS SUMMARY | ~2019-03-05 | XMS | Encounter Summary ---
Demographics + + + | Address | [address] | | | [place] [address] | + + + | Home Phone [...] [place], | | | | | [place] [address] | | + + + + + Care Team Providers + +------+ + | Care Director Content Marketing Name | Role | Phone | + [...] Rd | | | | | | [place] | | | | | | [address] | | | +--------+ + + + [...] as of this encounter Progress Notes Interface, Hourly Shift In - 06/14/2006 5:08 AM PDT [address] [address] [facility] January 08, 1994 DARYL ELLIS PH D RETAIL PHARMACIST MEDICAL PSYCHOLOGY [address] [address] RE:Litzy [place] MR:[id number] Ellis: Thank [...] any further information. Sincerely, Faisal Grijalva M.D. Research Management Associate, Neurology PIYUSH:sailaja January 09[birth year] 1994 documented in this encounter Plan of Treatment Not on filedocumented as of this encounter Visit Diagnoses Not on filedocumented in this encounter"
--- OUTSIDE RECORDS SUMMARY | ~2019-03-05 | XMS | Encounter Summary ---
Demographics + + + | Address | [address] | | | [place] [address] | + + + | Home Phone [...] | [facility] | | | and [place] | + + + | Organization | [facility] | | | and [...] Team Providers + +------+ + | Care Hurl Shaker Name | Role | Phone | + +------+ + | Timothy Elmore | PCP | | + +------+ + Reason for Visit + + + | Reason | Comments | + + + | Breast Concern | PREPRESS SUPERVISOR CON left breast implant rupture since 08/04/15. [...] | implant | [address] | Surg [address] | | | | | status | [place] | [address] | | | | | | [address] | [address] | | | | | | [place] | [place] | | | | | | [place] | [address] | | | | | | [address] | Phone: | | | | | | Phone: | [phone] | | | | | | [phone] | Fax: | | | | | | | [phone] | +--------+--------+ + + + + Encounter Details +--------+---------+ + + + | Date | Type | Department | Care Team | Description | +--------+---------+ + + + | 09/20/ | Office | [facility] | [place], | Breast implant | | 2015 | Visit | Surgery [address] | [place] [address] | opal, initial | | | | [address] | [place] | encounter (Primary | | | | [place] | [place] [address] | Dx) | | | | [address] | [phone] | | | | | [phone] | | | +--------+---------+ + + + [...] this encounter Progress Notes Pasquale Granados V, PIPELINES SUPERVISOR - 09/21/2015 3:20 PM PDTFormatting of this [...] Alcohol Use: No The patient lives in [place]. Family History: Family History Problem Relation Age [...]
--- OUTSIDE RECORDS SUMMARY | ~2019-03-05 | XMS | Encounter Summary ---
Demographics + + + | Address | [address] | | | [place] [address] | + + + | Home Phone [...] Author | [facility] | | | and [place] | + + + | Organization | [facility] [...] Team Providers + +------+ + | Care Launch Manager Name | Role | Phone | [...] n | neuritis or | [place] | [address] | | | | | | [address] | [place], | | | | | radiculitis, | [place], | [place] | | | | | unspecified | [place] | Phone: | | | | | [facility] | [address] | [phone] | | | | | | Phone: | Fax: | | | | | | [phone] | [phone] | +--------+--------+ + + + + Encounter Details +--------+ + + + + | Date | Type | Department | Care Team | Description | +--------+ + + + + | 02/24/ | Procedure | [facility] | [place], | 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 Ankle Clonus: absent. [address] [address] Patient: Litzy Evans Date of : 1955 Sex: Female Age: 59 Years 4 Months Height: 5 feet 5 inch Sensory NCS Nerve / Sites Rec. Site Onset Lat Peak Lat AUTO TRAVEL COUNSELOR Amp PP Amp Segments Distance Velocity ms [...]
--- OUTSIDE RECORDS SUMMARY | ~2019-03-05 | XMS | Encounter Summary ---
Demographics + + + | Address | [address] | | | [place] [address] | + + + | Home Phone [...] [facility] | | | and [place] | + + + | Organization | [facility] | | [...] Team Providers + +------+ + | Care Paint Tester Name | Role | Phone | [...] + | 08/09/ | Telephone | [facility] | Tapan Bragg | Appointment (today's | | 2015 | | [facility] | [address] | appt) | | | | [address] [facility] | [address] [place], | | | | | [address] [place] | [place] | | | | | [address] | [phone] | | | | | [phone] | | | +--------+ + + + [...]
--- OUTSIDE RECORDS SUMMARY | ~2019-03-05 | XMS | Encounter Summary ---
Demographics + + + | Address | [address] | | | [place] [address] | + + + | Home Phone [...] | Author | [facility] | | | and [place] | + + + | Organization | [facility] | | [...] Providers + +------+ + | Care Road Train Driver Name | Role | Phone | [...] | | | | | Phone: | [phone] | | | | | | [phone] | Fax: | | | | | | Fax: | [phone] | | | | | | [phone] | | +--------+ + + + + [...] | | and other | [place] | [address] | | | | | examinations | [address] | Phone: | | | | | of body | Phone: | [phone] | | | | | structure | [phone] | Fax: | | | | | Procedures | | [phone] | | | | | CSJ-06/29 | | | +--------+--------+ + + + + Encounter Details +--------+---------+ + + + | Date | Type | Department | Care Team | Description | +--------+---------+ + + + | 05/08/ | Office | [facility] [place] [facility] | Tapan Bragg | Lumbar stenosis | | 2016 | Visit | [facility] | MD Felisa [address] | (Primary Dx) | | | | [address] [facility] | [facility] [address], | | | | | [address] | [place] [address] | | | | | [address] | [phone] | | | | | [phone] | | | +--------+---------+ + + + [...] up for MY CHART at the front sight attacher. Just ask the staff there to help [...] to the patient. CONSULTATIONS: Seen by Fredi Kenndey MD 02-24-15 - did an EMG/NCV - [...] up for MY CHART at the front sight attacher. Just ask the staff there to help [...]
--- OUTSIDE RECORDS SUMMARY | ~2019-03-05 | XMS | Encounter Summary ---
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 She has been five times and five [...] bowel sounds. No hepatosplenomegaly noted. Rectal deferred. COMBINATION WINDOW INSTALLER EXAMINATION: Deferred. EXTREMITIES: Clear of clubbing, cyanosis, [...] plan. Hui Milton M.D. Resident, Internal Medicine Kaelb Velásquez M.D. Blower Room Attendant, Medicine TORI/tesfaye cc: Wallace Szymanski M.D. Blower Room Attendant, Internal Medicine Monroe Pruitt M.D. Blower Room Attendant, Anesthesiology Director of Pain Management Center cc: documente d in this encounter Plan of Treatment Not on filedocumented as of this encounter Visit Diagnoses Not on filedocumented in this encounter
--- OUTSIDE RECORDS SUMMARY | ~2019-03-05 | XMS | Encounter Summary ---
Demographics + + + | Address | [address] | | | [place] [address] | + + + | Home Phone [...] | Author | [facility] | | | and [place] | + + + | Organization | [facility] [...] Team Providers + +------+ + | Care Food Counter Worker Name | Role | Phone | [...] | [address] | [address] | pulmonary disease, | | | | [place] | [place] | unspecified COPD | | | | [address] | [address] | type (HCC) (Primary | | | | [phone] | [phone] | Dx) | +--------+ + + + [...]
--- OUTSIDE RECORDS SUMMARY | ~2019-03-05 | XMS | Encounter Summary ---
Demographics + + + | Address | [address] | | | [place] [address] | + + + | Home Phone [...] [place], | | | | | [place] [address] | | + + + + + Care Team Providers + +------+ + | Care Corporate Executive Chef Name | Role | Phone | + +------+ + PCP | Unavailable | + +------+ + Encounter Details +--------+ + + + + | Date | Type | Department | Care Team | Description | +--------+ + + + + | 09/20/ | Office | General Internal | Note, Outpatient | Progress Note | | 1994 | Visit-Trans | Medicine [address] | Clinic | | | | merritt | [facility] | | | | | | Mailcode: L475 | | | | | | Outpatient Clinic | | | | | | [facility], [address] | | | | | | [place], [place] | | | | | | [address] | | | | | | [phone] | | | +--------+ + + + [...] as of this encounter Progress Notes Interface, Corking Machine Operator In - 06/01/2006 3:00 AM PDT CLINIC DATE: 09/20/94 PSYCHIATRY CLINIC: OBSESSIVE-COMPULSIVE DISORDER (OCD) PSYCHIATRIC CLINIC EVALUATION: IDENTIFYING INFORMATION: Ms. Evans is a 39-year-old white female who is self-referred to the OCD Clinic for evaluation of potential obsessive-compulsive disorder symptomatology. 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 Since that time, she has been on Social Security disability. Her boyfriend works in an auto shop that they bought several years ago. She has tried to work in the [employer] shop but is unable to tolerate it [...] carrying the recent article from the [facility] on OCD. She easily engages [...] Monroy M.D. Resident, Psychiatry Jamir Payan M.D. Sales Secretary, Psychiatry and occurred after her last divorce. 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 Since that time, she has been on Social Security disability. Her boyfriend works in an auto shop that they bought several years ago. She has tried to work in the [employer] shop but is unable to tolerate it [...] interview carrying the recent article from the [facility] on OCD. She easily engages in the [...] Monroy M.D. Resident, Psychiatry Jamir Payan M.D. Sales Secretary, Psychiatry Aaron:bony WOOD:bony C: 10/04/94 shubham documented in this encounter Plan of Treatment Not on filedocumented as of this encounter Visit Diagnoses Not on filedocumented in this encounter
--- OUTSIDE RECORDS SUMMARY | ~2019-03-05 | XMS | Encounter Summary ---
Demographics + + + | Address | [address] | | | [place] [address] | + + + | Home Phone [...] + + + | Author | [facility] | | | and [place] | + + + | Organization | [facility] | [...] Team Providers + +------+ + | Care Summer Child Caregiver Name | Role | Phone | + [...] n | neuritis or | [place] | [address] | | | | | | [address] | [place], | | | | | radiculitis, | [place], | [place] | | | | | unspecified | [place] | Phone: | | | | | [facility] | [address] | [phone] | | | | | | Phone: | Fax: | | | | | | [phone] | [phone] | +--------+--------+ + + + + Encounter Details +--------+ + + + + | Date | Type | Department | Care Team | Description | +--------+ + + + + | 02/24/ | Procedure | [facility] | [place], | 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 Ankle Clonus: absent. [address] [address] Patient: Litzy Evans Date of : 1955 Sex: Female Age: 59 Years 4 Months Height: 5 feet 5 inch Sensory NCS Nerve / Sites Rec. Site Onset Lat Peak Lat EMERGENCY SERVICES DIRECTOR Amp PP Amp Segments Distance Velocity ms [...]
--- OUTSIDE RECORDS SUMMARY | ~2019-03-05 | XMS | Encounter Summary ---
Demographics + + + | Address | [address] | | | [place] [address] | + + + | Home Phone [...] | Author | [facility] | | | and [place] | + + + | Organization | [facility] | | [...] Team Providers + +------+ + | Care Procedures Rn Name | Role | Phone | + +------+ + | Timothy Elmore | PCP | | + +------+ + Encounter Details +--------+ + + + + | Date | Type | Department | Care Team | Description | +--------+ + + + + | 08/04/ | [facility] | [facility] | Neo Pichardo MD | Hypertensive | | 2017 - | Encounter | [facility] | [address] | emergency; Essential | | | | [address] | [place] | hypertension | | 08/07/ | | [place] [address] | [address] | | | 2016 | | [phone] | | | +--------+ + + + [...] were performed which did not suggest ac [place] coronary syndrome. Echocardiogram was performed which showed [...] Specialty: Family Medicine Contact information: [address] [place] [id number] Discharge Medications New Medications Details acetaminophen 325 [...] signed by: Neo Pichardo MD, 08/07/2016 12:33 [facility] documented in this enc ounter Discharge [...] MD - 08/06/2016 8:35 AM PDT [facility] Patient: Oneal Evans : 1955: Age: 60 y.o. MedRec: [id number] PCP: ASHANTI Esteves Admission date: 08/04/2016 Hospital [...] as outlined above. Neo Pichardo 08/06/2016 8:35 [facility] Mirna Kearns, PharmD - 08/05/2016 4:11 [...] Prior to Admission Sig: Patient taking differently STOCK TAKER as: Fluoxetine 40 mg Take 2 capsules by mouth daily Take 1 capsule by mouth 2 times daily Medication review performed and electronically signed by Jose Starr, Director Of Automation 15:21 Reviewed by Mirna Lyn, PharmD 08/05/2016 16:07 Neo Mendoza MD - 08/05/2016 9:28 AM PDT [facility] Patient: Oneal Evans : 1955: Age: 60 y.o. MedRec: [id number] PCP: ASHANTI Esteves Admission date: 08/04/2016 Hospital [...] This is a preliminary report provided by ADARTIS, CARLIE. A kevin brown report is available at [facility]. CT ABDOMEN AND PELVIS WITH CO [...] as outlined above. Neo Pichardo 08/05/2016 9:29 [facility] documented in this enc ounter Plan [...] + | [facility] | [address] | [place] | [phone] | | [facility] | | [address] | | | - LABORATORY | | [...] [facility] | | | | | | [address] | | | | | | [...] | mL/min/1.73m2 | [place] | | | [place] | RATE,ESTIMATED | | MEDICAL | | | | mL/min/1.35d7Euyb than | | CENTER - | | [...] [address] | [place] | [phone] | | [facility] | | [address] | | | - LABORATORY | | [...] [address] | [place] | [phone] | | [facility] | | [address] | | | - LABORATORY | | [...] | [facility] | [address] | [place] | [phone] | | [facility] | | [address] | | | - LABORATORY | | [...] [address] | [place] | [phone] | | [facility] | | [address] | | | - LABORATORY | | [...] 0.46 (L) | 0.60 - 1.30 | [facility] | | | | | mg/dL | [facility] | | | | | | MEDICAL | | | | | | CENTER - | | | | | | LABORATORY | | + + + + + + | eGFR if not | >60Comment: GLOMERULAR | >=60 | [facility] | | | | FILTRATION | mL/min/1.73m2 | [address] | | | [place] | RATE,ESTIMATED | | MEDICAL | | | | mL/min/1.14o4Izon than | | CENTER - | | [...] + | [facility] | [address] | [place] | [phone] | | [facility] | | [address] | | | - LABORATORY | | [...] [address] | [place] | [phone] | | [facility] | | [address] | | | - LABORATORY | | [...] | | | FILTRATION | mL/min/1.73m2 | [facility] | | | [place] | RATE,ESTIMATED | | MEDICAL | | | | mL/min/1.70a2Msml than | | CENTER - | | [...] | | | | | mg/dL | [facility] | | | | | | [...] [address] | [place] | [phone] | | [facility] | | [address] | | | - LABORATORY | | [...] [address] | [place] | [phone] | | [facility] | | [address] | | | - LABORATORY | | [...] 458 | | | [place] Patient Number [id number] Date of Study | | | 08/05/2016 Visit Number [id number] Accession | | | [id number] Referring Physician JAZLYN MORILLO Number | | | Date of 1955 Booth Cashier | | | GAVIN JENNINGS [facility] Age 60 year(s) | | | Interpreting ERICK DUKE | | | Print Support Specialist LEILANI | | | MD ERICK Gender Female Nurse | | | Stress Language Instructor Procedure Type | | | of Study [...] Volume: 55.37 ml | | | EF Qkjmfedco05% Left | | | Ventricle Diastolic Dimension: [...] Volume: 55.37 ml | | | EF Uchncucai53% | | | | | | Left [...] Number 458 | | [place] Patient Number [id number] Date of Study 08/05/2016 Visit Number | | [id number] Referring Physician JAZLYN MORILLO Number | | Date of 1955 Booth Cashier GAVIN JENNINGS [facility] Age | | 60 year(s) Interpreting ERICK DUKE | | Print Support Specialist LEILANI SUAREZ MD Gender Female Nurse | [...] LA Volume: 55.37 ml EF | | Wihyhehhi13% Left Ventricle Diastolic Dimension: 5.52 cm Systolic [...] LA Volume: 55.37 ml | | EF Gtdfpczxd31% | | | | Left Ventricle | [...] [address] | [place] | [phone] | | [facility] | | [address] | | | - LABORATORY | | [...] [address] | [place] | [phone] | | [facility] | | [address] | | | - LABORATORY | | [...] [address] | [place] | [phone] | | [facility] | | [address] | | | - LABORATORY | | [...] + | [facility] | [address] | [place] | [phone] | | [facility] | | [address] | | | - LABORATORY | | [...] | | | | | | [employer] | | | | | [...] + + | Performing | Address | City/State[facility] | Phone Number | | Organization | | | | + + + + + | [facility] | [address] | [place] | [phone] | | [facility] | | [address] | | | - LABORATORY | | [...] mL/min/1.73m2 | [address] | | | [place] | RATE,ESTIMATED | | MEDICAL | | | | mL/min/1.41m0Guln than | | CENTER - | | [...] [address] | [place] | [phone] | | [facility] | | [address] | | | - LABORATORY | | [...] [address] | [place] | [phone] | | [facility] | | [address] | | | - LABORATORY | | [...] | | | | | | [employer] | | | | | [...] + | [facility] | [address] | [place] | [phone] | | [facility] | | [address] | | | - LABORATORY | | [...] | | | | JAMMIE ALONSO MD ([id number]) | | | | | | on [...] + | [facility] | [address] | [place] | [phone] | | [facility] | | [address] | | | - LABORATORY | | [...] | | | | JAMMIE ALONSO MD ([id number]) | | | | | | on [...] [address] | [place] | [phone] | | [facility] | | [address] | | | - LABORATORY | | [...] [address] | [place] | [phone] | | [facility] | | [address] | | | - LABORATORY | | [...] | | | | | | [employer] | | | | | [...] + | [facility] | [address] | [place] | [phone] | | [facility] | | [address] | | | - LABORATORY | | [...] [address] | [place] | [phone] | | [facility] | | [address] | | | - LABORATORY | | [...] + | [facility] | [address] | [place] | [phone] | | [facility] | | [address] | | | - LABORATORY | | [...] + | [facility] | [address] | [place] | [phone] | | [facility] | | [address] | | | - LABORATORY | | [...] | mL/min/1.73m2 | [facility] | | | [place] | RATE,ESTIMATED | | MEDICAL | | | | mL/min/1.05j5Djsw than | | CENTER - | | [...] [address] | [place] | [phone] | | [facility] | | [address] | | | - LABORATORY | | [...] [address] | [place] | [phone] | | [facility] | | [address] | | | - LABORATORY | | [...] | | | | | | | [place] 08/05/16 at 1130, Initial | | | [...] | | | over 4 Hours, ONCE, [place] 08/05/16 | | | | | | [...]
--- OUTSIDE RECORDS SUMMARY | ~2019-03-05 | XMS | Encounter Summary ---
Demographics + + + | Address | [address] | | | [place] [address] | + + + | Home Phone [...] Author | [facility] | | | and [place] | + + + | Organization | [facility] [...] Providers + +------+ + | Care Senior Mainframe Developer Name | Role | Phone | [...] + + | 11/10/ | Clinical | [facility] | | Disorder of bone and | | 2014 | Support | Group [id number] | | cartilage, | | | | [address] | | unspecified | | | | [address] [place] | | | | | | [address] | | | | | | [phone] | | | +--------+ + + + [...] as of this encounter Progress Eunice Shaw, Combination Machine Tender - 11/10/2014 3:21 PM PDTA/P Spine and [...]
--- OUTSIDE RECORDS SUMMARY | ~2019-03-05 | XMS | Encounter Summary ---
Demographics + + + | Address | [address] | | | [place] [address] | + + + | Home Phone [...] [place], | | | | | [place] [address] | | + + + + + Care Team Providers + +------+ + | Care Developmental Training Counselor Name | Role | Phone | [...] of this encounter Progress Notes Interface, Hospital Housekeeper In - 02/21/2006 3:06 AM PSTCLINIC DATE: [...] M.D. Resident, Internal Medicine Wallace Szymanski M.D. Sap Solution Manager Consultant, Internal Medicine TORI/niles d ocumented in this encounter Plan of Treatment Not on filedocumented as of this encounter Visit Diagnoses Not on filedocumented in this encounter"
--- OUTSIDE RECORDS SUMMARY | ~2019-03-05 | XMS | Encounter Summary ---
Demographics + + + | Address | [address] | | | [place] [address] | + + + | Home Phone [...] [place], | | | | | [place] [address] | | + + + + + Care Team Providers + +------+ + | Care Fruit Distributor Name | Role | Phone | + [...] [id number] | | | | | | [place], [place] | | | | | | [address] | | | | | | [phone] | | | +--------+ + + + [...] + + + + | [facility] | [address] | [place] [address] | | | PATHOLOGY | [address] | | | + + + + + documented in this encounter Visit Diagnoses Not on filedocumented in this encounter"
--- OUTSIDE RECORDS SUMMARY | ~2019-03-05 | XMS | Encounter Summary ---
Demographics + + + | Address | [address] | | | [place] [address] | + + + | Home Phone [...] | Author | [facility] | | | and [place] | + + + | Organization | [facility] | | | and [...] Providers + +------+ + | Care Construction Site Crossing Guard Name | Role | Phone | [...] | [address] | [address] | pulmonary disease, | | | | [place] | [place] | unspecified COPD | | | | [address] | [address] | type (HCC) (Primary | | | | [phone] | [phone] | Dx) | +--------+ + + + [...]
--- OUTSIDE RECORDS SUMMARY | ~2019-03-05 | XMS | Encounter Summary ---
Demographics + + + | Address | [address] | | | [place] [address] | + + + | Home Phone [...] [place], | | | | | [place] [address] | | + + + + + Care Team Providers + +------+ + | Care Realtime Court Reporter Name | Role | Phone | + [...] as of this encounter Progress Notes Interface, Labor Arbitrator In - 02/23/2006 5:02 AM PSTCLINIC DATE: [...] C: 01/10/1998 ds cc: Wallace Szymanski M.D. Oracle Developer, Internal Medicine Hui Milton M.D. Resident, Internal Medicine 07 5:02 AM PSTdocumented in this encounter Plan of Treatment Not on filedocumented as of this encounter Visit Diagnoses Not on filedocumented in this encounter"
--- OUTSIDE RECORDS SUMMARY | ~2019-03-05 | XMS | Encounter Summary ---
Demographics + + + | Address | [address] | | | [place] [address] | + + + | Home Phone [...] [place], | | | | | [place] [address] | | + + + + + Care Team Providers + +------+ + | Care Brake Reliner Name | Role | Phone | + [...] of this encounter Progress Notes Interface, Fisher Purse Seine In - 02/28/2006 3:08 AM [facility] [place] [address] [place], [place] [address] or November 05, 1997 OLEG PUGH MD [address] [facility] [address] RE: LITZY EVANS MR#: [id number] : [id number] Pugh: I had the pleasure of seeing your patient, Ms. Litzy Evans, at [facility] today for evaluation of her chronic pain problem. Ms. Evans tells me that she has moved to [place] within the last week and plans to establish care in the month of November with Dr. Kaleb Velásquez here at [facility]. Therefore, I will send you a copy of this letter, as well as Dr. Velásquez. Please allow me to briefly review Ms. Evans' history, as well as my evaluations, findings, and suggestions. Ms. Evans is a 42-year-old woman with a longstanding history of low back pain who had been previously treated at the [facility] prior to my arrival at [facility]. She states that she has had the [...] tried a variety of medications including Tegretol, Benjamin Perez, Amitriptyline, and other antidepressants. CURRENT MEDICATIONS: 1. [...] recently ended. She has moved to [place] and is now living with an ex-'s mother. 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 She smokes one pack of cigarettes a [...] also with some difficulty. Romberg is negative. Vcdpjq-ogdk-dxvmxx is normal. On examination of her chest [...] normal limits." IMPRESSION: 1. Fibromyalgia by 1990 [place] [employer] criteria. 2. Significant psychiatric [...] from Internal Medicine here at [facility], would be for her to see Vaishnavi [...] 1995 intractable pain act here in [place]. I agreed with Ms. Evans that should she establish care with Dr. Velásquez here at [facility], I would be happy to discuss her care with him at that point. In the meantime, I have nothing additional or specific to offer for Ms. Evans' care. Thank you very much for your referral of Ms. Evans to the [facility] here at [facility]. If you have any questions or concerns, please do not hesitate to give me a call at [phone]. Monroe Pruitt M.D. Classroom Coordinator, Anesthesiology Director of Pain Management Center BRS:mau cc: Kaleb Velásquez M.D. Classroom Coordinator, Medicine Richie Her, M.D. Classroom Coordinator, Department of Orthopedics and Rehabilitation Kaleb Velásquez M.D. Classroom Coordinator, Medicine Richie Her M.D. Classroom Coordinator, Department of Orthopedics and Rehabilitation documented in this encounter Plan of Treatment Not on filedocumented as of this encounter Visit Diagnoses Not on filedocumented in this encounter
--- OUTSIDE RECORDS SUMMARY | ~2019-03-05 | XMS | Encounter Summary ---
Demographics + + + | Address | [address] | | | [place] [address] | + + + | Home Phone [...] [place], | | | | | [place] [address] | | + + + + + Care Team Providers + +------+ + | Care Bed Worker Name | Role | Phone | [...] Clinic | | | | | | [facility], [address] | | | | | | [place], [place] | | | | | | [address] | | | | | | [phone] | | | +--------+ + + + [...] as of this encounter Progress Notes Interface, [place] Boatman In - 06/05/2006 1:00 AM PDT CLINIC [...] Ms. Evans remains quite active with her jainism organization oand is noticing that she has [...] outlets of her anger. John Mulligan M.D. Depositing Machine Operator, Anesthesiology Director, [facility] HUI/fernando documented in this encounter Plan of Treatment Not on filedocumented as of this encounter Visit Diagnoses Not on filedocumented in this encounter"
--- OUTSIDE RECORDS SUMMARY | ~2019-03-05 | XMS | Encounter Summary ---
Demographics + + + | Address | [address] | | | [place] [address] | + + + | Home Phone [...] [place], | | | | | [place] [address] | | + + + + + Care Team Providers + +------+ + | Care Medical Authorization Specialist Name | Role | Phone | [...] as of this encounter Progress Notes Interface, Store Grocery Merchandiser In - 02/12/2006 3:04 AM PSTCLINIC DATE: [...]
--- OUTSIDE RECORDS SUMMARY | ~2019-03-05 | XMS | Encounter Summary ---
Demographics + + + | Address | [address] | | | [place] [address] | + + + | Home Phone | | + + + | Preferred Language | Unknown | + + + | Marital Status | Single | + + + | Protestant Affiliation | Unknown | + + + | Race | Unknown | + + + | Ethnic Group | Unknown | + + + Author + + + | Author | [facility] | | | and [place] | + + + | Organization | [facility] | | | and [...] Team Providers + +------+ + | Care Gastroenterology Technician Name | Role | Phone | [...] | | 2014 | | [place] | [address] | | | | | ENDOCRINOLOGY [address] | [address] | | | | | [address] [place] | [place] [address] | | | | | [address] | [phone] | | | | | [address] | | | | | | [phone] | | | +--------+ + + + [...] | CORE | | | | [place] [address] | | LABORATORY | | | | [...] | [place] | [address] | [place] [address] | [phone] | | CORE LABORATORY (I) | | [...] | | CORE | | | | [address] | | LABORATORY | | | | [...] + + | [facility] [place] | [address] | [place] [address] | [phone] | | CORE LABORATORY (I) | | | | + + + + + documented in this encounter Visit Diagnoses + + | Diagnosis | + + | Diarrhea | + + documented in this encounter"
--- OUTSIDE RECORDS SUMMARY | ~2019-03-05 | XMS | Encounter Summary ---
Demographics + + + | Address | [address] | | | [place] [address] | + + + | Home Phone [...] [place], | | | | | [place] [address] | | + + + + + Care Team Providers + +------+ + | Care Orthopaedic Surgeon Name | Role | Phone | [...] Clinic | | | | | | [facility], [address] | | | | | | [place], [place] | | | | | | [address] | | | | | | [phone] | | | +--------+ + + + [...] as of this encounter Progress Notes Interface, Hog Slaughterer In - 06/03/2006 2:00 AM PDT CLINIC [...] Ms. Evans has not been attending her presybeterian on Sundays but continues to go to local presybeterian meetings. She denies sedation, and nausea and [...] increased social function and participation in her adventist group. John Mulligan M.D. Skidway Worker, Anesthesiology Director, Pain Management Services PK:bony cc: CAROLINE YOON MD [facility] documented in this encounter Plan of Treatment Not on filedocumented as of this encounter Visit Diagnoses Not on filedocumented in this encounter
--- OUTSIDE RECORDS SUMMARY | ~2019-03-05 | XMS | Encounter Summary ---
Demographics + + + | Address | [address] | | | [place] [address] | + + + | Home Phone | | + + + | Preferred Language | Unknown | + + + | Marital Status | Single | + + + | Rastafari Affiliation | Unknown | + + + | Race | Unknown | + + + | Ethnic Group | Unknown | + + + Author + + + | Author | [facility] | | | and [place] | + + + | Organization | [facility] | | | and [place] | [...] Team Providers + +------+ + | Care Forging Press Lever Tender Name | Role | Phone | [...] | | | | oral mucosa | [place] | [place] | | | | | | [place], [place] | [place] [address] | | | | | | [address] | [place], [place] | | | | | | Phone: | [phone] Phone: | | | | | | [phone] | [phone] | | | | | | Fax: | Fax: | | | | | | [phone] | [phone] | +--------+--------+ + + + + Encounter Details +--------+---------+ + + + | Date | Type | Department | Care Team | Description | +--------+---------+ + + + | 12/07/ | Office | [facility] | Jamir Griffith, | Oral lesion (Primary | | 2016 | Visit | [facility] [facility] [address] | MD 1330 | Dx); Tinnitus, | | | | [place] | CHARLES VALDEZ [place] | bilateral; | | | | [address] | [address] | Hoarseness; ETD | | | | [phone] | [phone] | (eustachian tube | | | | [...] that she had thrush earlier in the [facility], tom related to use of prolonged [...] regarding hearing loss. I spent 50 minutes lwum-gs-gacc with Litzy Evans today; greater than 50% [...]
--- OUTSIDE RECORDS SUMMARY | ~2019-03-05 | XMS | Clinical Summary ---
Demographics + + + | Address | [address] | | | [place] [address] | + + + | Home Phone [...] [place], | | | | | [place] [address] | | + + + + + Care Team Providers + +------+ + | Care Architectural Intern Name | Role | Phone | + +------+ + PCP | Unavailable | + +------+ + Source Comments MARY is fully live on both [facility] Ambulatory and [facility] InPatient.[facility] Allergies Not on [...]
--- OUTSIDE RECORDS SUMMARY | ~2019-03-05 | XMS | Encounter Summary ---
Demographics + + + | Address | [address] | | | [place] [address] | + + + | Home Phone | | + + + | Preferred Language | Unknown | + + + | Marital Status | Single | + + + | Mormonism Affiliation | Unknown | + + + | Race | Unknown | + + + | Ethnic Group | Unknown | + + + Author + + + | Author | [facility] | | | and [place] | + + + | Organization | [facility] [...] Providers + +------+ + | Care Production Planning Manager Name | Role | Phone | + +------+ + | Timothy Elmore | PCP | | + +------+ + Reason for Visit + + + | Reason | Comments | + + + | 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 [...] | implant | [address] | Surg [address] | | | | | status | [place] | [place] | | | | | | h [address]ney | [place] [address] | | | | | | Tristan | [place] | | | | | | [place] | [address] | | | | | | [address] | Phone: | | | | | | Phone: | [phone] | | | | | | [phone] | Fax: | | | | | | | [phone] | +--------+--------+ + + + + Encounter Details +--------+---------+ + + + | Date | Type | Department | Care Team | Description | +--------+---------+ + + + | 09/20/ | Office | [facility] | Wesley Mckeon, | Breast implant | | 2015 | Visit | Surgery [address] | [place] [address] | opal, initial | | | | [address] | [place] | encounter (Primary | | | | [address] | [place] [address] | Dx) | | | | [address] | [phone] | | | | | [phone] | | | +--------+---------+ + + + [...] this encounter Progress Notes Pasquale Granados V, NURSERY ATTENDANT - 09/21/2015 3:20 PM PDTFormatting of [...] Alcohol Use: No The patient lives in [place]. Family History: Family History Problem Relation Age [...]
--- OUTSIDE RECORDS SUMMARY | ~2019-03-05 | XMS | Encounter Summary ---
Demographics + + + | Address | [address] | | | [place] [address] | + + + | Home Phone [...] [place], | | | | | [place] [address] | | + + + + + Care Team Providers + +------+ + | Care Automobile Service Station Attendant Name | Role | Phone | [...]
--- OUTSIDE RECORDS SUMMARY | ~2019-03-05 | XMS | Encounter Summary ---
Demographics + + + | Address | [address] | | | [place] [address] | + + + | Home Phone [...] [place], | | | | | [place] [address] | | + + + + + Care Team Providers + +------+ + | Care Protective Services Case Worker Name | Role | Phone | [...] as of this encounter Progress Notes Interface, Joy Operator In - 02/12/2006 3:04 AM PSTCLINIC [...]
--- OUTSIDE RECORDS SUMMARY | ~2019-03-05 | XMS | Encounter Summary ---
Demographics + + + | Address | [address] | | | [place] [address] | + + + | Home Phone [...] Author | [facility] | | | and [place] | + + + | Organization | [facility] [...] Providers + +------+ + | Care Ring Making Machine Operator Name | Role | Phone [...] | | | | | [address] [place] | [address] | | | | | [address] | [place] [address] | | | | | [phone] | [phone] | | | | | | | [...] through Care Everywhere.THRUSH, ORAL (Y EAST INFECTION) ([place])documented in this encounter Medications at Time of [...]
--- OUTSIDE RECORDS SUMMARY | ~2019-03-05 | XMS | Encounter Summary ---
Demographics + + + | Address | [address] | | | [place] [address] | + + + | Home Phone [...] [place], | | | | | [place] [address] | | + + + + + Care Team Providers + +------+ + | Care Fish Bait Processing Supervisor Name | Role | Phone | [...] of this encounter Progress Notes Interface, Mold Hoister In - 02/17/2006 3:01 AM PSTCLINIC DATE: 03/09/1998 INTERNAL MEDICINE CLINIC SUBJECTIVE: This is a patient of Mp Milton who comes in today with pain exacerbation secondary to her fibromyalgia and chronic low back pain. At the last visit she made a verbal commitment for management of her chronic pain, which included an agreement that Mp was her sole Vicodin yard manager. She attempted to make an appointment [...]
--- OUTSIDE RECORDS SUMMARY | ~2019-03-05 | XMS | Encounter Summary ---
Demographics + + + | Address | [address] | | | [place] [address] | + + + | Home Phone [...] [place], | | | | | [place] [address] | | + + + + + Care Team Providers + +------+ + | Care Home Service Consultant Name | Role | Phone | [...] as of this encounter Progress Notes Interface, Rubbish Collector In - 02/14/2006 5:12 AM PSTCLINIC DATE: [...] of her mother's care. Wallace Szymanski M.D. JENAE/aamnda cc: Hui Craven M.D. documented in this encounter Plan of Treatment Not on filedocumented as of this encounter Visit Diagnoses Not on filedocumented in this encounter"
--- OUTSIDE RECORDS SUMMARY | ~2019-03-05 | XMS | Encounter Summary ---
Demographics + + + | Address | [address] | | | [place] [address] | + + + | Home Phone [...] Author | [facility] | | | and [place] | + + + | Organization | [facility] | | | and [...] Team Providers + +------+ + | Care Termite Inspector Name | Role | Phone | [...] | | [address] | [place] [address] | | | | | [address] [place] | [phone] | | | | | [address] | | | | | | [phone] | | | +--------+ + + + [...]
--- OUTSIDE RECORDS SUMMARY | ~2019-03-05 | XMS | Encounter Summary ---
Demographics + + + | Address | [address] | | | [place] [address] | + + + | Home Phone [...] [place], | | | | | [place] [address] | | + + + + + Care Team Providers + +------+ + | Care Safety Associate Name | Role | Phone | [...]
--- OUTSIDE RECORDS SUMMARY | ~2019-03-05 | XMS | Encounter Summary ---
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 Moreover, she says this is an [...] myself or from any other provider at [facility]. She has violated our contract as set forth in a previous note. She understands this. Moreover, she understands that her chart will be flagged in the [facility] system so that she cannot receive [...]
--- OUTSIDE RECORDS SUMMARY | ~2019-03-05 | XMS | Clinical Summary ---
Demographics + + + | Address | [address] | | | [place] [address] | + + + | Home Phone [...] [place], | | | | | [place] [address] | | + + + + + Care Team Providers + +------+ + | Care Window Covering Sales Consultant Name | Role | Phone | + +------+ + PCP | Unavailable | + +------+ + Source Comments MARY is fully live on both [facility] Ambulatory and [facility] InPatient.[facility] Allergies Not on File Medications Not on [...]
--- OUTSIDE RECORDS SUMMARY | ~2019-03-05 | XMS | Encounter Summary ---
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 Moreover, she says this is an important [...] or from any other provider at [facility]. She has violated our contract as set forth in a previous note. She understands this. Moreover, she understands that her chart will be flagged in the [facility] system so that she cannot receive [...]
--- OUTSIDE RECORDS SUMMARY | ~2019-03-05 | XMS | Encounter Summary ---
Demographics + + + | Address | [address] | | | [place] [address] | + + + | Home Phone [...] | Author | [facility] | | | and [place] | + + + | Organization | [facility] [...] Providers + +------+ + | Care Customer Solutions Representative Name | Role | Phone | [...] 06/15/ | Telephone | [facility] | [place], | Appointment (Pain in | | 2016 | | [facility] | MD [address] | Left leg -- See | | | | [address] | comment) | | | | [address] | [place] | | | | | [address] | [phone] | | | | | [phone] | | | +--------+ + + + [...]
--- OUTSIDE RECORDS SUMMARY | ~2019-03-05 | XMS | Encounter Summary ---
Demographics + + + | Address | [address] | | | [place] [address] | + + + | Home Phone [...] | Author | [facility] | | | and [place] | + + + | Organization | [facility] | | [...] Team Providers + +------+ + | Care Forming Machine Operator Name | Role | Phone [...] [address] | | | | | [facility] [address] | [place] [address] | | | | | [address] [place] | [phone] | | | | | [address] | | | | | | [phone] | | | +--------+ + + + [...] | CORE | | | | [place] [address] | | LABORATORY | | | | [...] + + | [place] | [address] | [place] [address] | [phone] | | CORE LABORATORY (I) | | [...] (I) | | | | [place] [address] | | | | + + + + + + + + | Specimen | + + | Blood specimen | | (specimen) | + + + + + + + | Performing | Address | City/State/Zipcode | Phone Number | | Organization | | | | + + + + + | KARL[place] | [address] | [place] [address] | [phone] | | CORE LABORATORY (I) | | [...] + + | [place] | [address] | [place] [address] | [phone] | | CORE LABORATORY (I) | | | | + + + + + documented in this encounter Visit Diagnoses + + | Diagnosis | + + | 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
--- OUTSIDE RECORDS SUMMARY | ~2019-03-05 | XMS | Encounter Summary ---
Demographics + + + | Address | [address] | | | [place] [address] | + + + | Home Phone [...] [place], | | | | | [place] [address] | | + + + + + Care Team Providers + +------+ + | Care Vice President Risk Management Name | Role | Phone | [...]
--- OUTSIDE RECORDS SUMMARY | ~2019-03-05 | XMS | Encounter Summary ---
Demographics + + + | Address | [address] | | | [place] [address] | + + + | Home Phone [...] Author | [facility] | | | and [place] | + + + | Organization | [facility] | | [...] Team Providers + +------+ + | Care Cereal Miller Name | Role | Phone | + [...] + + | 06/21/ | Telephone | [facility] | [place], | Referral (Follow up) | | 2016 | | [facility] | MD [address] | (LT Knee MR (PRMCE) | | | | [address] | [address] | -- APPROVED); Other | | | | [address] | [place] [id number] | (See comments) | | | | [address] | [phone] | | | | | [phone] | | | +--------+ + + + [...]
--- OUTSIDE RECORDS SUMMARY | ~2019-03-05 | XMS | Encounter Summary ---
Demographics + + + | Address | [address] | | | [place] [address] | + + + | Home Phone [...] [place], | | | | | [place] [address] | | + + + + + Care Team Providers + +------+ + | Care Communication Arts Lecturer Name | Role | Phone | + +------+ + PCP | Unavailable | + +------+ + Encounter Details +--------+ + + + + | Date | Type | Department | Care Team | Description | +--------+ + + + + | 07/24/ | Office | General Internal | Note, Outpatient | Progress Note | | 1994 | Visit-Trans | Medicine [address] | Clinic | | | | [place] | [address] | | | | | | Mailcode: [id number] | | | | | | Outpatient Clinic | | | | | | [facility], [address] | | | | | | [place], [place] | | | | | | [address] | | | | | | [phone] | | | +--------+ + + + [...] as of this encounter Progress Notes Interface, Boom Man In - 06/05/2006 1:00 AM PDT CLINIC [...] remained quite high including continued attendance of zoroastrian and working on fhtwox-adx-dztge activities. She denies changes in bladder or [...] 2. Bladder dysfunction, resolved. John Mulligan M.D. Optical Fabricator, Anesthesiology Director, Pain Management Services PK:bony documented in this encounter Plan of Treatment Not on filedocumented as of this encounter Visit Diagnoses Not on filedocumented in this encounter"
--- OUTSIDE RECORDS SUMMARY | ~2019-03-05 | XMS | Encounter Summary ---
Demographics + + + | Address | [address] | | | [place] [address] | + + + | Home Phone [...] + + + | Author | [facility] | | | and [place] | + + + | Organization | [facility] | | | and [...] Team Providers + +------+ + | Care Lithograph Operator Name | Role | Phone | [...] | | | | | [address] [place] | [address] | | | | | [address] | [place] [address] | | | | | [phone] | [phone] | | | | | | | [...] through Care Everywhere.THRUSH, ORAL (Y EAST INFECTION) ([place])documented in this encounter Medications at Time of [...]
--- OUTSIDE RECORDS SUMMARY | ~2019-03-05 | XMS | Encounter Summary ---
Demographics + + + | Address | [address] | | | [place] [address] | + + + | Home Phone [...] [place], | | | | | [place] [address] | | + + + + + Care Team Providers + +------+ + | Care Slot Host Name | Role | Phone | + [...] as of this encounter Progress Notes Interface, Copyholder In - 02/23/2006 5:02 AM PSTCLINIC DATE: [...] C: 01/10/1998 ds cc: Wallace Szymanski M.D. Machine Former, Internal Medicine Hui Milton M.D. Resident, Internal Medicine 07 5:02 AM PSTdocumented in this encounter Plan of Treatment Not on filedocumented as of this encounter Visit Diagnoses Not on filedocumented in this encounter"
--- OUTSIDE RECORDS SUMMARY | ~2019-03-05 | XMS | Encounter Summary ---
Demographics + + + | Address | [address] | | | [place] [address] | + + + | Home Phone [...] [place], | | | | | [place] [address] | | + + + + + Care Team Providers + +------+ + | Care Malt House Kiln Operator Name | Role | Phone | + +------+ + PCP | Unavailable | + +------+ + Encounter Details +--------+ + + + + | Date | Type | Department | Care Team | Description | +--------+ + + + + | 01/01/ | Office | UNKNOWN DEPARTMENT | Note, Outpatient | Progress Note | | 1993 | Visit-Trans | [address] | Clinic | | | | [place] | [address] | | | | | | [place], [place] | | | | | | [address] | | | +--------+ + + + [...] as of this encounter Progress Notes Interface, Entry Level Financial Analyst In - 06/14/2006 5:08 AM PDT CLINIC [...] after the above studies. Faisal Grijalva M.D. Staff Radiologist, Neurology JQ:bony cc: DICK ACOSTA MD [address] [address] documented in this encounter Plan of Treatment Not on filedocumented as of this encounter Visit Diagnoses Not on filedocumented in this encounter"
--- OUTSIDE RECORDS SUMMARY | ~2019-03-05 | XMS | Encounter Summary ---
Demographics + + + | Address | [address] | | | [place] [address] | + + + | Home Phone [...] [place], | | | | | [place] [address] | | + + + + + Care Team Providers + +------+ + | Care Rn Cardiac Rehab Name | Role | Phone | + [...] Clinic | | | | | | [facility], [address] | | | | | | [place], [place] | | | | | | [address] | | | | | | [phone] | | | +--------+ + + + [...] of this encounter Progress Notes Interface, Supervisor Paper Coating In - 06/01/2006 3:00 AM PDT CLINIC [...] in the Pain Clinic. Faisal Grijalva M.D. Commutator V Ring Assembler, Neurology JQ/wtgarfield documented in this encounter Plan of Treatment Not on filedocumented as of this encounter Visit Diagnoses Not on filedocumented in this encounter"
--- OUTSIDE RECORDS SUMMARY | ~2019-03-05 | XMS | Clinical Summary ---
Demographics + + + | Address | [address] | | | [place] [address] | + + + | Home Phone [...] + | Author | [facility] | | | and [place] | + + + | Organization | [facility] [...] Team Providers + +------+ + | Care Guide Plant Name | Role | Phone | + [...] +--------+ +---------+--------+ | MEDICARE | MEDICA | [id number] | 03/21/18 | [phone] | | Medica | | | RE | | 96-Pre | 5 | | re | | | PART A | | sent | | | | | | AND B | | | | | | + +--------+ +--------+ +---------+--------+ | MEDICAID [place] | MEDICA | [id number] | | [phone] | | Medica | [...] | 4 | [phone] | [place] [address] | | | anastasiya | | | 7 (Home) | | + +--------+ +--------+ + + Advance Directives + + + + + | Type | Date Recorded | Patient | Explanation | | | | Nurse Transitional | | + + + + + | Power of | | | | | Software Engineer Backend | | | | + + + [...]
--- OUTSIDE RECORDS SUMMARY | ~2019-03-05 | XMS | Encounter Summary ---
Demographics + + + | Address | [address] | | | [place] [address] | + + + | Home Phone [...] [place], | | | | | [place] [address] | | + + + + + Care Team Providers + +------+ + | Care Limnologist Name | Role | Phone | + +------+ + PCP | Unavailable | + +------+ + Encounter Details +--------+ + + + + | Date | Type | Department | Care Team | Description | +--------+ + + + + | 05/13/ | Results | | Other, Faculty | | | 1998 | Only | | [phone] | | +--------+ + + + + [...] | | + +---------+ + + | [facility] DEPARTMENT OF | | | | | RADIOLOGY | | | | + +---------+ + + documented in this encounter Visit Diagnoses Not on filedocumented in this encounter"
--- OUTSIDE RECORDS SUMMARY | 2019-03-05 14:40 | XMS ---
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 LLAMAS Security Teletypist Events No recent Security Events currently on file CRITERIA MET - Group Notification - 6 ED Visits in 6 Months - [facility] - Has Care Guidelines - PDMP - [facility] - 2 Visits in 30 Days CARE PROVIDERS FRANTZ CONLEY Manager Social Responsibility: Medical Current PHONE: [phone] Name Unknown Retirement Facility Current PHONE: [phone] LY MACIAS Family [facility] 11/11/2017-Current PHONE: [phone] Ramos Granados MD PHONE: Unknown DR LY MACIAS Primary Care 02/16/2016-Current PHONE: [phone] Guidelines [facility]: [facility] Guidelines Date: 08/04/2018 Care Coordination: Receives mental health services with [facility].\T\nbsp; Please contact [facility] with mental health concerns.\T\nbsp; [place]:\T\nbsp; \T\nbsp; [place]:\T\nbsp; [address]. Care History Medical/Surgical 12/25/2018 [facility] - W RECEIVED INPATIENT -CASE MANAGEMENT REFERRAL - PATIENT NO LONGER HAS A NEBULIZER MACHINE AND LOST IT- [facility] HAS REQUESTED A [facility] REVIEW TO SEE IF PATIENT CAN BE ELIGIBLE FOR ANOTHER NEBULIZER MACHINE COVERED. 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 - FOLLOW UP AFTER PATIENT DISCHARGE-PATIENT WOULD BENEFIT FROM A HOME VISIT. 08/04/2018 [facility] - PATIENT HAS ALL OF HER PSYCH MEDICATIONS MANAGED BY [employer] - PATIENT HAS PCP DR MACIAS IN [place]. - PATIENT DOES HAVE CASE MANAGEMENT THRU [facility]- PAST WAS LAST SEEN BY CASE MANAGEMENT WEEK OF 07/27/18. 05/13/2017 [facility] Care Recommendation: This patient has had 5 or more Emergency Department visits in the last 12 months. Patient requires education on the scope and purpose of the ED as an acute care provider not a Primary Care Provider and should not be utilized for chronic conditions. If patient returns to ED please contact Community Health WorkerKaylynn at [phone]. These are guidelines and the provider should exercise clinical judgment when providing care. E.D. VISIT COUNT (12 MO.) 9 [facility] [place] TOTAL 9 NOTE: Visits indicate total known visits. ED/UCC VISIT TRACKING (12 MO.) 03/05/2019 14:38 [facility] [place] TYPE: Emergency COMPLAINT: - SWOLLEN EXTREMITIES 02/14/2019 09:29 [facility] [place] TYPE: Emergency COMPLAINT: - LEFT LEG PAIN DIAGNOSES: - Allergy status to analgesic agent status - Allergy status to oth drug/meds/biol subst status - Other terminal press operator (current) drug therapy - Bipolar disorder, unspecified - Pain in left leg - Localized edema 02/06/2019 16:10 [facility] [place] TYPE: Emergency COMPLAINT: - RETAINING FLUID DIAGNOSES: - Allergy status to analgesic agent status - Allergy status to oth drug/meds/biol subst status - Personal history of nicotine dependence - Edema, unspecified - Other terminal press operator (current) drug therapy - Localized edema 02/03/2019 00:05 [facility] [place] TYPE: Emergency COMPLAINT: - SOB DIAGNOSES: - Allergy status to analgesic agent status - Nicotine dependence, unspecified, uncomplicated - Fall on same level, unspecified, initial encounter - Transient alteration of awareness - Shortness of breath - Other penitentiary (current) drug therapy - Allergy status to oth drug/meds/biol subst status 01/07/2019 09:53 [facility] [place] TYPE: Emergency COMPLAINT: - WEAKNESS DIAGNOSES: - Allergy status to oth drug/meds/biol subst status - Pericardial effusion (noninflammatory) - Allergy status to analgesic agent status - Weakness - Other terminal press operator (current) drug therapy - Anemia, unspecified - [...] - Nicotine dependence, unspecified, uncomplicated - Other terminal press operator (current) drug therapy 03/22/2018 02:02 [facility]O [facility] TYPE: Emergency COMPLAINT: - MOUTH SWELLING INPATIENT VISIT TRACKING (12 MO.) 01/07/2019 17:48 Sou[facility] TYPE: Medical Surgical COMPLAINT: - PERICARDIL [...] failure with hypoxia - Unsp place [facility] (private) residence as place - Pleural effusion, not elsewhere classified - Chronic obstructive pulmonary disease, unspecified - Essential (primary) hypertension - Gastro-esophageal reflux disease without esophagitis - Chronic pain syndrome - Major depressive disorder, single episode, unspecified - Allergy status to oth drug/meds/biol subst status - Other terminal press operator (current) drug therapy - Other nonspecific abnormal [...] to oth drug/meds/biol subst status - Other penitentiary (current) drug therapy - Major depressive disorder, single episode, unspecified - Essential (primary) hypertension - Chronic respiratory failure with hypoxia - 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, left femur, init - terminal press operator (current) use of inhaled steroids - Opioid dependence, uncomplicated - terminal press operator (current) use of inhaled steroids - Abnormal levels of other serum enzymes - Gastro-esophageal reflux disease without esophagitis - Other penitentiary (current) drug therapy 03/22/2018 02:03 [facility] [place] TYPE: Observation COMPLAINT: - ANGIOEDEMA DIAGNOSES: - Emphysema, unspecified - terminal press operator (current) use of inhaled steroids - Essential (primary) hypertension - Nicotine dependence, cigarettes, uncomplicated - Fibromyalgia - Unspecified mood [affective] disorder - Rheumatoid arthritis, unspecified - Allergy status to oth drug/meds/biol subst status - Polyneuropathy, unspecified - Angioneurotic edema, initial encounter - Localized swelling, mass and lump, head - terminal press operator (current) use of opiate analgesic - Other terminal press operator (current) drug therapy [email or web address]
== END 2019-03-05 20:25 | disposition home or self-care (01) ==
LOC: ED 14:38
DX: R60.0 Localized edema (principal); D64.9 Anemia, unspecified; J44.9 Chronic obstructive pulmonary disease, unspecified; F31.9 Bipolar disorder, unspecified; Z87.891 Personal history of nicotine dependence; Z88.8 Allergy status to other drugs, medicaments and biological substances; Z88.6 Allergy status to analgesic agent; Z79.899 Other long term (current) drug therapy; Z79.51 Long term (current) use of inhaled steroids
CPT/HCPCS: 80053; 83880; 85025; 99283

== ENCOUNTER 2019-03-06 20:53 | Emergency (ER) | payer MEDICARE, OTHER ==
[~2019-03-06] VITALS: Ht 165.1 cm; Wt 81.7 kg
--- OUTSIDE RECORDS SUMMARY | 2019-03-06 20:56 | XMS ---
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 No recent Security Events currently on file CRITERIA MET - Group Notification - 6 ED Visits in 6 Months - [facility] - Has Care Guidelines - PDMP - [facility] - 2 Visits in 30 Days CARE PROVIDERS FRANTZ CONLEY Physician System Manager: Medical Current PHONE: [phone] Name Unknown Intermediate Facility Current PHONE: [phone] [facility] 11/11/2017-Current PHONE: [phone] [facility]EL[facility] BONILLA [facility] 03/06/2019-Current PHONE: [phone] [facility] Current MD PHONE: Unknown DR LY MACIAS Primary Care 02/16/2016-Current PHONE: [phone] Guidelines Source: [facility] Guidelines Date: 08/04/2018 Care Coordination: Receives mental health services with [facility].\T\nbsp; Please contact [facility] with mental health concerns.\T\nbsp; [place] [facility]:\T\nbsp; \T\nbsp; [place]:\T\nbsp; [phone]. Care History Medical/Surgical 12/25/2018 [facility] - [facility] RECEIVED INPATIENT -CASE MANAGEMENT REFERRAL - PATIENT NO LONGER HAS A NEBULIZER MACHINE AND LOST IT- [facility] HAS REQUESTED A [facility] REVIEW TO SEE IF PATIENT CAN BE ELIGIBLE FOR ANOTHER NEBULIZER MACHINE COVERED. 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 - FOLLOW UP AFTER PATIENT DISCHARGE-PATIENT WOULD BENEFIT FROM A HOME VISIT. 08/04/2018 [facility] - PATIENT HAS ALL OF HER PSYCH MEDICATIONS MANAGED BY [facility]. - PATIENT HAS PCP DR MACIAS IN [place]. - PATIENT DOES HAVE CASE MANAGEMENT THRU [facility]- PAST WAS LAST SEEN BY CASE MANAGEMENT WEEK OF 07/27/18. 05/13/2017 [facility] Care Recommendation: This patient has had 5 or more Emergency Department visits in the last 12 months. Patient requires education on the scope and purpose of the ED as an acute care provider not a Primary Care Provider and should not be utilized for chronic conditions. If patient returns to ED please contact Community Health WorkerKaylynn at [phone]. These are guidelines and the provider should exercise clinical judgment when providing care. [facility] NOTE: Visits indicate total known visits. ED/UCC VISIT TRACKING (12 MO.) 03/06/2019 20:[address] [facility] [place] TYPE: Emergency COMPLAINT: - UNRESPONSIVE 03/05/2019 14:38 [facility] [place] TYPE: Emergency COMPLAINT: - SWOLLEN EXTREMITIES 02/14/2019 09:29 [facility] [place] TYPE: Emergency COMPLAINT: - LEFT LEG PAIN DIAGNOSES: - Allergy status to analgesic agent status - Allergy status to oth drug/meds/biol subst status - Other rodent exterminator (current) drug therapy - Bipolar disorder, unspecified - Pain in left leg - Localized edema 02/06/2019 16:10 [facility] [place] TYPE: Emergency COMPLAINT: - RETAINING FLUID DIAGNOSES: - Allergy status to analgesic agent status - Allergy status to oth drug/meds/biol subst status - Personal history of nicotine dependence - Edema, unspecified - Other rodent exterminator (current) drug therapy - Localized edema 02/03/2019 00:05 [facility] [place] TYPE: Emergency COMPLAINT: - SOB DIAGNOSES: - Allergy status to analgesic agent status - Nicotine dependence, unspecified, uncomplicated - Fall on same level, unspecified, initial encounter - Transient alteration of awareness - Shortness of breath - Other care home (current) drug therapy - Allergy status to oth drug/meds/biol subst status 01/07/2019 09:53 [facility] [place] TYPE: Emergency COMPLAINT: - WEAKNESS DIAGNOSES: - Allergy status to oth drug/meds/biol subst status - Pericardial effusion (noninflammatory) - Allergy status to analgesic agent status - Weakness - Other care home (current) drug therapy - Anemia, unspecified - [...] - Nicotine dependence, unspecified, uncomplicated - Other rodent exterminator (current) drug therapy 03/22/2018 02:02 [facility] [place] TYPE: Emergency COMPLAINT: - MOUTH SWELLING INPATIENT VISIT TRACKING (12 MO.) 01/07/2019 17:48 [facility] [place] TYPE: Medical Surgical COMPLAINT: - PERICARDIL ENFFUSION [...] - Chronic respiratory failure with hypoxia [facility] place - Pleural effusion, not elsewhere classified - Chronic obstructive pulmonary disease, unspecified - Essential (primary) hypertension - Gastro-esophageal reflux disease without esophagitis - Chronic pain syndrome - Major depressive disorder, single episode, unspecified - Allergy status to oth drug/meds/biol subst status - Other care home (current) drug therapy - Other nonspecific abnormal [...] to oth drug/meds/biol subst status - Other care home (current) drug therapy - Major depressive disorder, single episode, unspecified - Essential (primary) hypertension - Chronic respiratory failure with hypoxia - 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, left femur, init - longterm (current) use of inhaled steroids - Opioid dependence, uncomplicated - longterm (current) use of inhaled steroids - Abnormal levels of other serum enzymes - Gastro-esophageal reflux disease without esophagitis - Other care home (current) drug therapy 03/22/2018 02:03 [facility] [place] TYPE: Observation COMPLAINT: - ANGIOEDEMA DIAGNOSES: - Emphysema, unspecified - terminal carman (current) use of inhaled steroids - Essential (primary) hypertension - Nicotine dependence, cigarettes, uncomplicated - Fibromyalgia - Unspecified mood [affective] disorder - Rheumatoid arthritis, unspecified - Allergy status to oth drug/meds/biol subst status - Polyneuropathy, unspecified - Angioneurotic edema, initial encounter - Localized swelling, mass and lump, head - longterm (current) use of opiate analgesic - Other rodent exterminator (current) drug therapy [email or web address]
--- NOTE | 2019-03-06 23:26 | NUR ---
Pt remained unresponsive. Offered prayer. Son arrived after initial contact by POOL Anguiano. Son indicated he had talked with pt earlier in evening. Indicated relief that pt was being transferred to [facility] due to recent treatment there. [place] they had good understanding of required care and history. Gave life flight pack list to son. Reassured son that pt was being trasferred to receive best care possible. Offered prayer for healing and support. Discussed blessing of positive conversation nikos in evening and he expressed hope that it wasn't the last one. Will follow as needed.
--- NOTE | 2019-03-07 18:50 | EKG ---
[facility] [address] [place], [place] [address] Signed Normal sinus rhythm Possible Left atrial enlargement Septal infarct (cited on or before 06-FEB-2019) Abnormal ECG When compared with ECG of 06-FEB-2019 17:11, No significant change was found Confirmed by EDGAR DIMAS DO ([id number]) on 03/07/2019 6:50:01 PM Electronically Signed By: EDGAR DIMAS DO 03/07/19 1850 PATIENT NAME: ONEAL LLAMAS Electrocardiogram DATE OF : 51 PHYSICIAN: EDGAR DIMAS DO REPORT #: [id number] REPORT IS CONFIDENTIAL AND NOT TO BE RELEASED WITHOUT AUTHORIZATION
== END 2019-03-07 00:10 | disposition short-term general hospital (02) ==
LOC: ED 20:53
DX: J96.90 Respiratory failure, unspecified, unspecified whether with hypoxia or hypercapnia (principal); J44.9 Chronic obstructive pulmonary disease, unspecified; F31.9 Bipolar disorder, unspecified; Z87.891 Personal history of nicotine dependence; Z88.8 Allergy status to other drugs, medicaments and biological substances; Z88.6 Allergy status to analgesic agent; Z79.899 Other long term (current) drug therapy
CPT/HCPCS: 36600; 70450; 71045; 93005; 93010; 94002; 94799; 96361; 96374; 99285-25; J2704; J7030